=== PATIENT | female | born 1955 | race Caucasian/White ===

== ENCOUNTER → 2017-06-18 | Outpatient (CLI) | payer MEDICARE ==
[~2017-06-18] MED LIST: ACYC800T PO; AGM875T PO; ASP81CT; AZIT-21 PO; BISO1TAB39 PO; CEFD300C3 PO; GUAI120L29 PO; HYDR-757 PO; LRT10T; LVT.15T; METF-380 PO; OLME20TA5; OXYC5CAP18 PO; OXYM30SP NS; PARO20TA57 PO
--- NOTE | 2017-06-18 12:53 | Diagnostic Imaging Report ---
PROCEDURE: MRI left joint lower extremity without contrast. TECHNIQUE: Multiplanar, multisequence non contrast-enhanced MRI of the left lower extremity was accomplished. INDICATION: Knee pain. COMPARISON: There are no prior studies available for comparison. FINDINGS: This exam is less than optimal due to the patient's body habitus. There is also motion artifact on several sequences. The medial meniscus has been torn and has nearly completely degenerated. 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 Specifically, there is marked narrowing of the articular surfaces of both the medial femoral condyle and the medial proximal tibia. The coronal STIR images also show areas of increased signal within the opposing surfaces of the medial femoral condyle and medial proximal tibia. Most likely, this represents bone edema from repetitive trauma. The medial collateral ligament is bowed medially and the MCL is somewhat indistinct. I suspect that the medial collateral ligament is partially torn. The lateral meniscus is thinned in its midportion and is probably torn on a degenerative basis. The lateral meniscus is otherwise fairly well maintained. On the proton-dense sagittal images, the anterior cruciate ligament is not well visualized. I suspect that the ACL is partially torn. The posterior cruciate ligament, the quadriceps and infrapatellar tendons, the fibular collateral ligament, the biceps femoris tendon, and iliotibial band are intact. There is no sign of a tear of either medial or lateral retinaculum. There is no abnormal signal arising from the osseous structures to suggest bone edema or fracture. There is moderate degenerative disease involving the lateral compartment of the knee joint and the patellofemoral space. There is also moderate joint effusion present. IMPRESSION: 1. The medial meniscus has been torn and has nearly completely degenerated. 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 The medial collateral ligament is also bowed medially and the MCL may be partially torn. 2. The poor visualization of the anterior cruciate ligament does suggest that the ACL is at least partially if not completely torn. 3. The lateral meniscus and the other major ligaments and tendons are intact. 4. There is no acute bony abnormality identified. 5. There is a moderate joint effusion present. Dictated by: Dictated on workstation # [id number]
--- NOTE | 2017-06-18 13:09 | Diagnostic Imaging Report ---
PROCEDURE: MRI right joint lower extremity without contrast. TECHNIQUE: Multiplanar, multisequence non contrast-enhanced MRI of the right lower extremity was accomplished. INDICATION: Knee pain. COMPARISON: There are no previous studies available for comparison. FINDINGS: This exam is less than optimal due to the patient's body habitus. There is also motion artifact on several sequences. The mid portion and the anterior horn of the medial meniscus have been torn and have degenerated. The injury to the medial meniscus has led to advanced degenerative disease involving the medial compartment of the knee joint. However, the degenerative changes are not as severe as noted on the MRI left knee exam. On the STIR coronal series, there is increased signal in the medial femoral condyle and the medial proximal tibia. Most likely, this is related to bone edema from repetitive trauma. There also appear to be degenerative cysts in each subcarinal region. The medial collateral ligament is bowed medially, and there is edema/inflammation about the MCL. I do suspect it is partially torn. The lateral meniscus is thinned centrally but appears to be intact. The anterior and posterior cruciate ligaments, the quadriceps and infrapatellar tendons are intact. The fibular collateral ligament, the biceps femoris tendon, and the iliotibial band are intact. No evidence of a tear of either the medial or lateral retinaculum. There is moderate degenerative disease of the lateral compartment of the knee joint and the patellofemoral space. There is no sign of an acute bony abnormality. There is a rjqfj-we-xiwojsxu joint effusion present. There is no evidence for a Damian's cyst. IMPRESSION: 1. The anterior horn and mid portion of the medial meniscus have been torn and have degenerated. The injury to the medial meniscus has led to severe degenerative disease involving the medial compartment of the knee joint. The degenerative changes are not as pronounced as seen on the MRI left knee exam, however. 2. The medial collateral ligament is bowed medially and is probably partially torn. 3. The lateral meniscus and the other major ligaments and tendons are intact. 4. There is no sign of an acute bony abnormality. 5. There is a [id number]-[id number] joint effusion. Dictated by: Dictated on workstation # [id number]
== END ==
LOC: RAD 10:17
PROVIDERS: ATTEND Family Medicine
DX: S83.242A Other tear of medial meniscus, current injury, left knee, initial encounter (principal); S83.241A Other tear of medial meniscus, current injury, right knee, initial encounter; M17.0 Bilateral primary osteoarthritis of knee
CPT/HCPCS: 73721

== ENCOUNTER 2017-12-29 23:56 | Emergency (ER) | payer MEDICARE ==
[~2017-12-29 23:56] MED LIST changes: +HYDR-4226 PO
== END 2017-12-30 00:21 | disposition left against medical advice (07) ==
LOC: EDUNIT# 23:56 → ER 23:57
DX: K46.9 Unspecified abdominal hernia without obstruction or gangrene (principal)

== ENCOUNTER → 2018-05-29 | Outpatient (CLI) | payer MEDICARE | LOC: WOUNDCARE 09:26 | PROVIDERS: ATTEND Surgery | DX: T81.31XA Disruption of external operation (surgical) wound, not elsewhere classified, initial encounter (principal); E11.622 Type 2 diabetes mellitus with other skin ulcer; L98.493 Non-pressure chronic ulcer of skin of other sites with necrosis of muscle; T85.79XS Infection and inflammatory reaction due to other internal prosthetic devices, implants and grafts, sequela; B95.61 Methicillin susceptible Staphylococcus aureus infection as the cause of diseases classified elsewhere; E66.01 Morbid (severe) obesity due to excess calories | CPT/HCPCS: 11042; 87070; 87077; 87186; 87205 ==

== ENCOUNTER → 2018-06-05 | Outpatient (CLI) | payer MEDICARE | LOC: WOUNDCARE 08:07 | PROVIDERS: ATTEND Surgery | DX: T81.31XA Disruption of external operation (surgical) wound, not elsewhere classified, initial encounter (principal); E11.622 Type 2 diabetes mellitus with other skin ulcer; L98.493 Non-pressure chronic ulcer of skin of other sites with necrosis of muscle; T85.79XS Infection and inflammatory reaction due to other internal prosthetic devices, implants and grafts, sequela; B95.62 Methicillin resistant Staphylococcus aureus infection as the cause of diseases classified elsewhere; E66.01 Morbid (severe) obesity due to excess calories; Z68.42 Body mass index [BMI] 45.0-49.9, adult | CPT/HCPCS: 99212 ==

== ENCOUNTER → 2018-06-12 | Outpatient (CLI) | payer MEDICARE | LOC: WOUNDCARE 08:07 | PROVIDERS: ATTEND Surgery | DX: T81.31XA Disruption of external operation (surgical) wound, not elsewhere classified, initial encounter (principal); E11.622 Type 2 diabetes mellitus with other skin ulcer; L98.493 Non-pressure chronic ulcer of skin of other sites with necrosis of muscle; T85.79XS Infection and inflammatory reaction due to other internal prosthetic devices, implants and grafts, sequela; B95.62 Methicillin resistant Staphylococcus aureus infection as the cause of diseases classified elsewhere; E66.01 Morbid (severe) obesity due to excess calories | CPT/HCPCS: 99213 ==

== ENCOUNTER → 2018-06-19 | Outpatient (CLI) | payer MEDICARE | LOC: WOUNDCARE 08:10 | PROVIDERS: ATTEND Surgery | DX: T81.31XA Disruption of external operation (surgical) wound, not elsewhere classified, initial encounter (principal); E11.622 Type 2 diabetes mellitus with other skin ulcer; L98.493 Non-pressure chronic ulcer of skin of other sites with necrosis of muscle; T85.79XS Infection and inflammatory reaction due to other internal prosthetic devices, implants and grafts, sequela; B95.62 Methicillin resistant Staphylococcus aureus infection as the cause of diseases classified elsewhere; E66.01 Morbid (severe) obesity due to excess calories; Z68.42 Body mass index [BMI] 45.0-49.9, adult | CPT/HCPCS: 11042; 11045; 87070; 87205 ==

== ENCOUNTER → 2018-06-26 | Outpatient (CLI) | payer MEDICARE | LOC: WOUNDCARE 08:10 | PROVIDERS: ATTEND Surgery | DX: T81.31XA Disruption of external operation (surgical) wound, not elsewhere classified, initial encounter (principal); E11.622 Type 2 diabetes mellitus with other skin ulcer; L98.493 Non-pressure chronic ulcer of skin of other sites with necrosis of muscle; T85.79XS Infection and inflammatory reaction due to other internal prosthetic devices, implants and grafts, sequela; B95.62 Methicillin resistant Staphylococcus aureus infection as the cause of diseases classified elsewhere; E66.01 Morbid (severe) obesity due to excess calories; Z68.42 Body mass index [BMI] 45.0-49.9, adult | CPT/HCPCS: 99213 ==

== ENCOUNTER 2018-07-01 12:54 | Emergency (ER) | payer MEDICARE ==
[~2018-07-01] VITALS: Ht 160 cm; Wt 103.9 kg
[~2018-07-01 12:54] MED LIST changes: -OXC5T PO; +OXYC5CAP18 PO
[2018-07-01] MEDS ORDERED: NS IV 1000 ML 1,000 ML IV SCH (13:30)
--- NOTE | 2018-07-01 13:34 | ED Abdominal Pain ---
General Chief Complaint: Abdominal/GI Problems Stated Complaint: DEHYDRATED STOMACH DRAINAGE Nursing Triage Note: ARRIVED VIA WC TO ROOM 07. 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 SEES DR CELIS FOR THIS PROBLEM. Sepsis Screen: No Definite Risk Source of Information: Patient Exam Limitations: No Limitations History of Present Illness Date Seen by Provider: Jul 01, 2018 Time Seen by Provider: 13:21 Initial Comments 62-year-old female who presents to the emergency room with complaints of increasing drainage from a fistula at the site of umbilical hernia repair stemming from December of last year. She is a patient of Dr. Costa and [facility] and she is currently waiting 6 months to see if the fistula will close on its own before having another operation but reports an increase in the drainage from her wound and macerated skin to her abdominal wall from the drainage over the past week. She reports that she no longer able to keep the drainage bag in place due to the maceration to her skin and whatever she eats or drinks is coming out of the opening. Timing/Duration: 1 Week Location: Generalized Abdomen (abdominal wall) Associated Symptoms: Denies Symptoms Allergies and Home Medications Allergies Coded Allergies: No Known Drug Allergies (Unverified , 07/18/07) Home Medications Acyclovir 800 Mg Tablet, 800 MG PO QID Prescribed by: GILL CESPEDES on 12/12/141905 Amoxicillin/Clavulanate K 875 Mg Tab, 1 TAB PO BID Prescribed by: GILL CESPEDES on 08/07/14 151 Bisoprol/Hydrochlorothiazide 1 Tab Tablet, 1 TAB PO DAILY, (Reported) Cefdinir 300 Mg Capsule, 1 EACH PO BID Prescribed by: GILL CESPEDES on 04/20/14 1851 Guaifenesin/Codeine Phos 120 Ml Liquid, 5-10 ML PO Q6H Prescribed by: GILL CESPEDES on 04/20/14 1611 Hydrocodone Bit/Acetaminophen 1 Each Tablet, 1 EA PO Q6H PRN for MILD PAIN Prescribed by: GILL CESPEDES on 08/07/14 1514 Hydrocodone/Acetaminophen 1 Each Tablet, 1 EACH PO Q4H PRN for PAIN Prescribed by: GILL CESPEDES on 12/12/14 1906 Metformin Hcl 1,000 Mg Tablet, 1 EACH PO BID WITH MEALS, (Reported) Oxycodone HCl 5 Mg Capsule, 5 MG PO Q6H PRN for PAIN Prescribed by: GILL CESPEDES on 12/12/14 1908 Oxymetazoline Hcl 15 Ml [place], 2-3 SPRAY NS PER PACKAGE INSTR Prescribed by: GILL CESPEDES on 04/20/14 1611 Paroxetine Hcl 20 Mg Tablet, 20 MG PO DAILY, (Reported) Patient Home Medication List Home Medication List Reviewed: Yes Review of Systems Review of Systems Constitutional: see HPI; No chills, No fever Gastrointestinal: See HPI, Abdominal Pain, Other (increased drainage from abdominal wound reddened surrounding skin) Skin: see HPI All Other Systems Reviewed Negative Unless Noted: Yes Past Sebtvpr-Cflkql-Jbvtfe Hx Past Med/Social Hx: Reviewed Nursing Past Med/Soc Hx Patient Social History Recent Foreign Travel: No Contact w/Someone Who Travel: No Recent Infectious Disease Expo: No Recent Hopitalizations: Yes Immunizations Up To Date Tetanus Booster (TDap): Unknown Past Medical History Surgeries: Yes (TUBAL, 1 OPEN EXPLORATORY, 4 HERNIA REPAIRS ) Respiratory: No Cardiac: No Hypertension Neurological: No Reproductive Disorders: No Genitourinary: No Gastrointestinal: Yes (FISTULA, HERNIA WITH MESH) Hepatitis Musculoskeletal: Yes Endocrine: Yes Hypothyroidsim HEENT: No Cancer: No Psychosocial: No Integumentary: No Blood Disorders: No Family Medical History Reviewed Nursing Family Hx Physical Exam Vital Signs Vital Signs - First Documented 07/01/18 13:00 Temp 98.0 Pulse 115 Resp 18 B/P (MAP) 103/51 (68) Pulse Ox 98 O2 Delivery Room Air Capillary Refill : Less Than 3 Seconds Height/Weight/BMI Height: 5'3.00" Weight: 229lbs. oz. 103.735897hf; BMI Method:Stated General Appearance: WD/WN, no apparent distress Respiratory: chest non-tender, lungs clear, normal breath sounds, no respiratory distress, no accessory muscle use Cardiovascular: normal peripheral pulses, regular rate, rhythm, no edema, no gallop, no JVD, no murmur Gastrointestinal: normal bowel sounds, non tender, soft, no organomegaly, no pulsatile mass, other (macerated skin to the surrounding tissue of the wound. The wound is draining a yellow color bile and there is a area of the few red tissue and the scar where her wound VAC previously was.) Extremities: normal capillary refill Neurologic/Psychiatric: alert, normal mood/affect, oriented x 3 Skin: normal color, warm/dry Focused Exam Lactate Level 07/01/18 14:05: Lactic Acid Level 2.58*H 07/01/18 16:15: Lactic Acid Level 1.87 Lactic Acid Level Laboratory Tests Test 07/01/18 14:05 07/01/18 16:15 Lactic Acid Level 2.58 MMOL/L (0.50-2.00) *H 1.87 MMOL/L (0.50-2.00) Progress/Results/Core Measures Results/Orders Lab Results Laboratory Tests Test 07/01/18 13:30 07/01/18 14:05 07/01/18 16:15 Range/Units White Blood Count 9.5 4.3-11.0 10^3/uL Red Blood Count 4.90 4.35-5.85 10^6/uL Hemoglobin 14.6 11.5-16.0 G/DL Hematocrit 45 35-52 % Mean Corpuscular Volume 93 80-99 FL Mean Corpuscular Hemoglobin 30 25-34 PG Mean Corpuscular Hemoglobin Concent 32 32-36 G/DL Red Cell Distribution Width 13.3 10.0-14.5 % Platelet Count 593 H 130-400 10^3/uL Mean Platelet Volume 9.5 7.4-10.4 FL Neutrophils (%) (Auto) 56 42-75 % Lymphocytes (%) (Auto) 25 12-44 % Monocytes (%) (Auto) 13 H 0-12 % Eosinophils (%) (Auto) 6 0-10 % Basophils (%) (Auto) 0 0-10 % Neutrophils # (Auto) 5.3 1.8-7.8 X 10^3 Lymphocytes # (Auto) 2.4 1.0-4.0 X 10^3 Monocytes # (Auto) 1.2 H 0.0-1.0 X 10^3 Eosinophils # (Auto) 0.6 H 0.0-0.3 10^3/uL Basophils # (Auto) 0.0 0.0-0.1 10^3/uL Prothrombin Time 14.1 12.2-14.7 SEC INR Comment 1.0 0.8-1.4 Activated Partial Thromboplast Time 30 24-35 SEC Sodium Level 136 135-145 MMOL/L Potassium Level 4.9 3.6-5.0 MMOL/L Chloride Level 103 98-107 MMOL/L Carbon Dioxide Level 18 L 21-32 MMOL/L Anion Gap 15 H 5-14 MMOL/L Blood Urea Nitrogen 18 7-18 MG/DL Creatinine 1.00 0.60-1.30 MG/DL Estimat Glomerular Filtration Rate 56 BUN/Creatinine Ratio 18 Glucose Level 136 H 70-105 MG/DL Calcium Level 10.6 H 8.5-10.1 MG/DL Corrected Calcium 10.6 H 8.5-10.1 MG/DL Total Bilirubin 0.7 0.1-1.0 MG/DL Aspartate Amino Transf (AST/SGOT) 41 H 5-34 U/L Alanine Aminotransferase (ALT/SGPT) 24 0-55 U/L Alkaline Phosphatase 64 40-136 U/L Total Protein 8.8 H 6.4-8.2 GM/DL Albumin 4.0 3.2-4.5 GM/DL Lactic Acid Level 2.58 *H 1.87 0.50-2.00 MMOL/L My Orders Orders - BALTAZAR CASTRO Cbc With Automated Diff (07/01/18 13:20) Comprehensive Metabolic Panel (07/01/18 13:20) Blood Culture (07/01/18 13:20) Protime With Inr (07/01/18 13:20) Partial Thromboplastin Time (07/01/18 13:20) Saline Lock/Iv-Start (07/01/18 13:20) Vital Signs Adult Sepsis Patie Q15M (07/01/18 13:20) O2 (07/01/18 13:20) Remove Rings In Anticipation O (07/01/18 13:20) Wound Culture (07/01/18 13:20) Lactic Acid Analyzer (07/01/18 13:20) Ns Iv 1000 Ml (Sodium Chloride 0.9%) (07/01/18 13:30) Vital Signs/I&O 07/01/18 07/01/18 13:00 15:25 Temp 98.0 Pulse 115 76 Resp 18 16 B/P (MAP) 103/51 (68) 116/54 (74) Pulse Ox 98 99 O2 Delivery Room Air Room Air Blood Pressure Mean: 68 Progress Progress Note : Time: 13:35 Progress Note I have discussed the case with Dr. Costa and he recommends sending the patient over for wound care after lab results are back. 1441: Lab reported critical lactic acid. The patient will be given a liter of normal saline prior to going to wound care and we will repeat her lactic acid when she is there. Dr. Costa was notified of these plans. The patient agrees with plan of care, plans for discharge, return precautions were given. 1615: Repeat lactic acid was within normal range. Departure Impression Primary Impression: Fistula of small intestine Additional Impression: Maceration of skin Disposition: HOME, SELF-CARE Condition: Stable/Unchanged Departure-Patient Inst. Decision time for Depature: 13:47 Referrals: ERIC SCOTT MD (PCP/Family) Primary Care Physician SAMIA COSTA MD Patient Instructions: Enterocutaneous Fistula (DC) Add. Discharge Instructions: Go directly to Dr. Costa's office to be seen for wound care. Call [facility] tomorrow morning to see you can get your appointment sooner than your scheduled on July 10, 2018. If not be sure and make your appointment on July 10. Return back to the emergency room for worsening symptoms or concerns as needed. All discharge instructions reviewed with patient and/or family. Voiced understanding. BALTAZAR CASTRO Jul 01, 2018 13:34
[2018-07-01 14:07] LABS: BILIRUBIN,TOTAL 0.7 MG/DL (0.1-1.0); CALCIUM 10.6 MG/DL (8.5-10.1); POTASSIUM 4.9 MMOL/L (3.6-5.0); TOTAL PROTEIN 8.8 GM/DL (6.4-8.2)
[2018-07-01 14:09] LABS: PROTHROMBIN TIME PATIENT 14.1 SEC (12.2-14.7)
[2018-07-01 14:23] LABS: BASOPHILS % (AUTO) 0 % (0-10); EOSINOPHILS # (AUTO) 0.6 10^3/uL (0.0-0.3); EOSINOPHILS % (AUTO) 6 % (0-10); HEMATOCRIT 45 % (35-52); HEMOGLOBIN 14.6 G/DL (11.5-16.0); LYMPHOCYTES # (AUTO) 2.4 X 10^3 (1.0-4.0); LYMPHOCYTES % (AUTO) 25 % (12-44); MEAN CORPUSCULAR HEMOGLOBIN 30 PG (25-34); MEAN CORPUSCULAR HGB CONC 32 G/DL (32-36); MEAN CORPUSCULAR VOLUME 93 FL (80-99); MEAN PLATELET VOLUME 9.5 FL (7.4-10.4); MONOCYTES # (AUTO) 1.2 X 10^3 (0.0-1.0); MONOCYTES % (AUTO) 13 % (0-12); NEUTROPHILS # (AUTO) 5.3 X 10^3 (1.8-7.8); NEUTROPHILS % (AUTO) 56 % (42-75); PLATELET COUNT 593 10^3/uL (130-400); RED CELL DISTRIBUTION WIDTH 13.3 % (10.0-14.5); WHITE BLOOD COUNT 9.5 10^3/uL (4.3-11.0)
[2018-07-01 15:25] VITALS: BP 116/54
== END 2018-07-01 15:25 | disposition home or self-care (01) ==
LOC: EDUNIT# 12:54 → ER 12:57
DX: K63.2 Fistula of intestine (principal); R23.8 Other skin changes; I10 Essential (primary) hypertension; E03.9 Hypothyroidism, unspecified; Z87.19 Personal history of other diseases of the digestive system; Z79.84 Long term (current) use of oral hypoglycemic drugs; Z98.890 Other specified postprocedural states
CPT/HCPCS: 36415; 80053; 83605; 85025; 85610; 85730; 87040; 87070; 87077; 87205

== ENCOUNTER 2018-07-01 17:07 | Emergency (ER) | payer MEDICARE ==
[~2018-07-01] VITALS: Ht 160 cm; Wt 103.9 kg
--- NOTE | 2018-07-01 17:13 | NUR ---
BALTAZAR STATES DR STEWART IS COMING TO SEE PT.
--- OUTSIDE RECORDS SUMMARY | 2018-07-01 17:13 | XMS REPORT | Clinical Summary ---
Author Author [facility] Organization [facility] Address Unknown Phone Unavailable Care Team Providers Care Wool Fleece Sorter Name Role Phone Mamie Schuster MD PCP Source Comments Some departments are not documenting in the electronic medical record. If you do not see the information that you expected, contact Release of Information in the Health Information Management department at [phone] for further assistance in locating additional records.[facility] Allergies No Known Allergies Medications End Date Status Medication Sig Dispensed Refills Start Date Active levothyroxine (SYNTHROID) Take 200 mcg 0 200 mcg tablet by mouth daily 30 minutes before breakfast. Active atorvastatin (LIPITOR) 40 Take 40 mg by 0 mg tablet mouth daily. Active metFORMIN (GLUCOPHAGE) Take 1,000 mg 0 1,000 mg tablet by mouth twice daily with meals. Active sodium hypochlorite Apply 473 mL 2 (DAKIN'S 1/2 STRENGTH) topically to 9 0.25 % topical solution affected area twice daily. Active Problems Problem Noted Date Hypothyroidism 05/09/2018 Morbid obesity 05/09/2018 Hypertension 05/09/2018 Syncope 05/09/2018 Chronic abdominal wound infection 05/09/2018 Encounters Care Team Description Date Type Specialty Niles Barney MD 06/26/2018 Emergency Emergency Medicine Helen Lan MD BMI 40.0-44.9, adult (HCC) (Primary Dx); Infected hernioplasty mesh, initial encounter ([facility]) 05/21/2018 Office Visit General Surgery Rachel Garcia MD Wilson, Matthew D, MD Capra, Jennifer, DO Chronic abdominal wound infection 05/08/2018 Hospital - Encounter 05/10/2018 05/08/2018 Hospital Radiology Encounter 05/08/2018 Hospital Radiology Encounter from Last 3 Months Family History Medical History Relation Name Comments Heart Attack Mother Relation Name Status Comments Mother Social History Date Tobacco Use Types Packs/Day Years Used Never Smoker Smokeless Tobacco: Never Used Alcohol Use Drinks/Week oz/Week Comments No Alcohol Habits Answer Date Recorded How often do you have a drink containing alcohol? Never 05/09/2018 How many drinks containing alcohol do you have on Not asked a typical day when you are drinking? How often do you have six or more drinks on one Not asked occasion? Sex Assigned at Date Recorded Not on file Industry Job Start Date Occupation Not on file Not on file Not on file Travel End Travel History Travel Start No recent travel history available. Last Filed Vital Signs Time Taken Vital Sign Reading 06/26/2018 9:00 PM CDT Blood Pressure 117/72 05/21/2018 9:38 AM PRINT DECORATOR Pulse 122 06/26/2018 12:22 PM CDT Temperature 36.5 C (97.7 F) 05/21/2018 9:38 AM PRINT DECORATOR Respiratory Rate 18 06/26/2018 9:00 PM CDT Oxygen Saturation 97% - Inhaled Oxygen - Concentration 06/26/2018 12:22 PM CDT Weight 108 kg (238 lb) 06/26/2018 12:22 PM CDT Height 160 cm (5' 3") 06/26/2018 12:22 PM CDT Body Mass Index 42.16 Plan of Treatment Health Maintenance Due Date Last Done Comments HEPATITIS C SCREENING 1955 PHYSICAL (COMPREHENSIVE) 08/22/1962 EXAM HIV SCREENING 08/22/1970 DTAP/TDAP VACCINES (1 - 08/22/1973 Tdap) CERVICAL CANCER SCREENING 08/22/1985 BREAST CANCER SCREENING 1995 COLORECTAL CANCER 08/22/2005 SCREENING SHINGLES RECOMBINANT 08/22/2005 VACCINE (1 of 2) INFLUENZA VACCINE 11/07/2017 Procedures Comments Procedure Name Priority Date/Time Associated Diagnosis CT ABD/PELV W CONTRAST STAT 06/26/2018 4:48 PM CDT POC LACTATE 06/26/2018 2:13 PM CDT COMPREHENSIVE METABOLIC STAT 06/26/2018 PANEL 12:37 PM CDT CBC AND DIFF STAT 06/26/2018 12:37 PM CDT POC GLUCOSE 05/10/2018 8:31 AM PRINT DECORATOR COMPREHENSIVE METABOLIC Routine 05/10/2018 PANEL 6:39 AM PRINT DECORATOR CBC AND DIFF Routine 05/10/2018 6:39 AM PRINT DECORATOR POC GLUCOSE 05/10/2018 5:38 AM PRINT DECORATOR POC GLUCOSE 05/09/2018 10:53 PM PRINT DECORATOR POC GLUCOSE 05/09/2018 6:23 PM PRINT DECORATOR POC GLUCOSE 05/09/2018 3:40 PM PRINT DECORATOR POC GLUCOSE 05/09/2018 12:07 PM PRINT DECORATOR 2-D + DOPPLER Routine 05/09/2018 ECHOCARDIOGRAM 11:39 AM PRINT DECORATOR POC GLUCOSE 05/09/2018 8:09 AM PRINT DECORATOR UA REFLEX CULTURE LABEL Routine 05/09/2018 8:02 AM PRINT DECORATOR URINALYSIS MICROSCOPIC Routine 05/09/2018 REFLEX TO CULTURE 8:02 AM PRINT DECORATOR URINALYSIS DIPSTICK Routine 05/09/2018 REFLEX TO CULTURE 8:[address] ABD/PELV W CONTRAST MP 05/09/2018 5:56 AM PRINT DECORATOR CULTURE-BLOOD Routine 05/09/2018 W/SENSITIVITY 1:17 AM PRINT DECORATOR VANCOMYCIN TROUGH 05/09/2018 1:10 AM PRINT DECORATOR BNP (B-TYPE NATRIURETIC Routine 05/09/2018 PEPTI) 1:10 AM PRINT DECORATOR C REACTIVE PROTEIN (CRP) Routine 05/09/2018 1:10 AM PRINT DECORATOR MAGNESIUM Routine 05/09/2018 1:10 AM PRINT DECORATOR TSH WITH FREE T4 REFLEX Routine 05/09/2018 1:10 AM PRINT DECORATOR COMPREHENSIVE METABOLIC Routine 05/09/2018 PANEL 1:10 AM PRINT DECORATOR PTT (APTT) Routine 05/09/2018 1:10 AM PRINT DECORATOR PROTIME INR (PT) Routine 05/09/2018 1:10 AM PRINT DECORATOR CBC AND DIFF Routine 05/09/2018 1:10 AM PRINT DECORATOR CULTURE-BLOOD Routine 05/09/2018 W/SENSITIVITY 1:10 AM PRINT DECORATOR ECG 12-LEAD Routine 05/09/2018 12:44 AM PRINT DECORATOR POC GLUCOSE 05/09/2018 12:[address] HEAD EXTERNAL IMAGING Routine 05/08/2018 Diagnosis unknown 3:35 PM PRINT DECORATOR GENERAL RAD CHEST Routine 05/08/2018 Diagnosis unknown EXTERNAL IMAGING 2:35 PM PRINT DECORATOR TELEMETRY STRIPS-SCAN 05/08/2018 12:00 AM PRINT DECORATOR ECG-SCAN 05/08/2018 12:00 AM PRINT DECORATOR from Last 3 Months Results * CT ABD/PELV W CONTRAST (06/26/2018 4:48 PM CDT) Only the most recent of 2 results within the time period is included. Impressions Performed At 1.No small bowel obstruction, intraperitoneal abscess, ascites, or free air. [facility] 2. No significant change in appearance of abdominal wall defect and thin linear gas fluid collection in the deep left anterior abdominal wall since May 09, 2018.There is no evidence at this examination of enterocutaneous fistula. Finalized by Tyler Resendez M.D. on 06/26/2018 5:08 PM. Dictated by Tyler Resendez M.D. on 06/26/2018 4:50 PM. Narrative Performed At CT abdomen and pelvis [facility] RESULTS Indication:62-year-old lady with abdominal wound and drainage Comparison studies:May 09, 2018 Technique: Dynamic IV contrast-enhanced images were obtained through the abdomen and pelvis.. Findings: Heart size normal.Unchanged anterior epiphrenic lymph nodes which are probably reactive nodes.Small fat-containing left Bochdalek hernia again noted.Minimal dependent atelectasis or scarring. 1. 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 2. Adrenal glands and kidneys:Unremarkable. 3. Pancreas and retroperitoneum:Pancreas unremarkable.Unchanged normal size retroperitoneal lymph nodes which are probably reactive nodes. 4. Peritoneal space:Small and large bowel loops normal caliber.Oral contrast was given, and there is transit of relatively high density oral contrast to the distal small bowel and large bowel which implies that contrast has passed through the proximal and mid small bowel loops. There is a persistent anterior abdominal wound with soft tissue defect. There is a persistent thin linear gas fluid collection in the deep left anterior abdominal wall which extends to the midline wound.There is no significant change in the appearance of this thin linear gas fluid collection noted on images 48 through 52 series 2 measuring about 8 cm transverse by 0.8 cm AP.There is no extravasation of high density contrast material into this lesion or into the cutaneous defect.Numerous small bowel loops remain closely adherent to the inner aspect of the anterior abdominal wall.No pneumoperitoneum.No ascites or extravasation of contrast into the peritoneal cavity. 5. Pelvis findings:Partially filled bladder and uterus unremarkable.Ovaries normal size.No pelvic adenopathy. Procedure Note Interface, Radiant Results - 06/26/2018 5:[address] abdomen and pelvis Indication: 62-year-old lady with abdominal wound and drainage Comparison studies: May 09, 2018 Technique: Dynamic IV contrast-enhanced images were obtained through the abdomen and pelvis.. Findings: Heart size normal. Unchanged anterior epiphrenic lymph nodes which are probably reactive nodes. Small fat-containing left Bochdalek hernia again noted. Minimal dependent atelectasis or scarring. 1. Liver and spleen: Liver remains normal size without focal lesion. Surgical clips in gallbladder fossa. 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 2. Adrenal glands and kidneys: Unremarkable. 3. Pancreas and retroperitoneum: Pancreas unremarkable. Unchanged normal size retroperitoneal lymph nodes which are probably reactive nodes. 4. Peritoneal space: Small and large bowel loops normal caliber. Oral contrast was given, and there is transit of relatively high density oral contrast to the distal small bowel and large bowel which implies that contrast has passed through the proximal and mid small bowel loops. There is a persistent anterior abdominal wound with soft tissue defect. There is a persistent thin linear gas fluid collection in the deep left anterior abdominal wall which extends to the midline wound. There is no significant change in the appearance of this thin linear gas fluid collection noted on images 48 through 52 series 2 measuring about 8 cm transverse by 0.8 cm AP. There is no extravasation of high density contrast material into this lesion or into the cutaneous defect. Numerous small bowel loops remain closely adherent to the inner aspect of the anterior abdominal wall. No pneumoperitoneum. No ascites or extravasation of contrast into the peritoneal cavity. 5. Pelvis findings: Partially filled bladder and uterus unremarkable. Ovaries normal size. No pelvic adenopathy. IMPRESSION 1. No small bowel obstruction, intraperitoneal abscess, ascites, or free air. 2. No significant change in appearance of abdominal wall defect and thin linear gas fluid collection in the deep left anterior abdominal wall since May 09, 2018. There is no evidence at this examination of enterocutaneous fistula. Finalized by Tyler Resendez M.D. on 06/26/2018 5:08 PM. Dictated by Tyler Resendez M.D. on 06/26/2018 4:50 PM. Performing Organization Address City/[facility] Phone Number [facility] RESULTS * POC LACTATE (06/26/2018 2:13 PM CDT) Pathologist [facility] LACTIC ACID POC 1.2 0.5 - 2.0 MMOL/L [facility] Performing Organization Address City/[facility] Phone Number [facility] [address] [place] [address] * CBC AND DIFF (06/26/2018 12:37 PM CDT) Only the most recent of 3 results within the time period is included. Pathologist [facility] White Blood 8.5 4.5 - 11.0 K/UL [facility] Cells RBC 4.06 4.0 - 5.0 M/UL [facility] Hemoglobin 12.6 12.0 - 15.0 GM/DL [facility] Hematocrit 38.5 36 - 45 % [facility] MCV 94.9 80 - 100 FL [facility] MCH 31.0 26 - 34 PG [facility] MCHC 32.6 32.0 - 36.0 G/DL [facility] RDW 14.4 11 - 15 % [facility] Platelet Count 556 (H) 150 - 400 K/UL [facility] MPV 8.3 7 - 11 FL [facility] Neutrophils 49 41 - 77 % [facility] Lymphocytes 31 24 - 44 % [facility] Monocytes 12 4 - 12 % [facility] Eosinophils 7 (H) 0 - 5 % [facility] Basophils 1 0 - 2 % [facility] Absolute 4.30 1.8 - 7.0 K/UL [facility] Neutrophil Count Absolute Lymph 2.60 1.0 - 4.8 K/UL [facility] Count Absolute 1.00 (H) 0 - 0.80 K/UL [facility] Monocyte Count Absolute 0.60 (H) 0 - 0.45 K/UL [facility] Eosinophil Count Absolute 0.10 0 - 0.20 K/UL [facility] Basophil Count Specimen Blood Performing Organization Address City/State/Zipcode Phone Number [facility] [address] [place] [address] * COMPREHENSIVE METABOLIC PANEL (06/26/2018 12:37 PM CDT) Only the most recent of 3 results within the time period is included. Sodium 138 137 - 147 MMOL/L [facility] Potassium 4.0 3.5 - 5.1 MMOL/L [facility] Chloride 104 98 - 110 MMOL/L [facility] Glucose 104 (H) 70 - 100 MG/DL [facility] Blood Urea 13 7 - 25 MG/DL [facility] Nitrogen Creatinine 0.74 0.4 - 1.00 MG/DL [facility] Calcium 10.1 8.5 - 10.6 MG/DL [facility] Total Protein 8.1 (H) 6.0 - 8.0 G/DL [facility] Total Bilirubin 0.7 0.3 - 1.2 MG/DL [facility] Albumin 3.8 3.5 - 5.0 G/DL [facility] Alk Phosphatase 46 25 - 110 U/L [facility] AST (SGOT) 19 7 - 40 U/L [facility] CO2 26 21 - 30 MMOL/L [facility] ALT (SGPT) 13 7 - 56 U/L [facility] Anion Gap 8 3 - 12 [facility] eGFR Non >60 >60 mL/min [facility] Comment: [place] The eGFR is not validated for use in drug dosing adjustments.Continue to use estimated creatinine clearance per dosing reference text.Please contact the Clinical Pharmacist for questions. eGFR >60 >60 mL/min [facility] [place] Comment: The eGFR is not validated for use in drug dosing adjustments.Continue to use estimated creatinine clearance per dosing reference text.Please contact the Clinical Pharmacist for questions. Specimen Blood Performing Organization Address City/State/Zipcode Phone Number [facility] [address] [place] [address] * POC GLUCOSE (05/10/2018 8:31 AM PRINT DECORATOR) Only the most recent of 8 results within the time period is included. Glucose, POC 116 (H) 70 - 100 MG/DL [facility] Performing Organization Address City/[facility]/Zipcode Phone Number [facility] [address] [place] [address] * 2-D + DOPPLER ECHOCARDIOGRAM (05/09/2018 11:39 AM PRINT DECORATOR) IVS 0.93 0.6 - 0.9 cm OTHER OUTSIDE LAB LVIDD 4.48 3.8 - 5.2 cm OTHER OUTSIDE LAB LVIDS 3.57 2.2 - 3.5 cm OTHER OUTSIDE LAB PW 1.07 0.6 - 0.9 cm OTHER OUTSIDE LAB TDI e' 0.11 m/s OTHER OUTSIDE LAB Right 2.63 1.9 - 3.5 cm OTHER OUTSIDE Ventricular Mid LAB Diameter LA size 3.85 2.7 - 3.8 cm OTHER OUTSIDE LAB LA volume 37.51 22 - 52 mL OTHER OUTSIDE LAB Right Atrial 13.22 <18 cm2 OTHER OUTSIDE Area LAB Right Atrial 4.32 2.2 - 2.8 cm OTHER OUTSIDE Major Dimension LAB AV peak 1.20 m/s OTHER OUTSIDE velocity LAB MV Peak A Mohamud 0.79 m/s OTHER OUTSIDE LAB MV Peak E Mohamud 0.67 m/s OTHER OUTSIDE PW LAB Right 3.07 2.5 - 4.1 cm OTHER OUTSIDE Ventricular LAB Basal Diameter Right Heart 1.73 >1.7 cm OTHER OUTSIDE Systolic Mmode LAB TAPSE Sinus 3.21 2.7 - 3.3 cm OTHER OUTSIDE LAB BSA 2.3 m2 OTHER OUTSIDE LAB FS 20.31 28 - 44 % OTHER OUTSIDE LAB EF 34.53 % OTHER OUTSIDE LAB LV mass 152.18 66 - 150 g OTHER OUTSIDE LAB RWT 0.48 <=0.42 OTHER OUTSIDE LAB E/A ratio 0.85 OTHER OUTSIDE LAB E/E' ratio 6.09 OTHER OUTSIDE LAB Left Atrium 16.31 16 - 34 OTHER OUTSIDE Index LAB Left Ventricle 66.16 44 - 88 g/m2 OTHER OUTSIDE Mass Index LAB TV rest 13 mmHg OTHER OUTSIDE pulmonary LAB artery pressure Right Heart 0.107 m/s OTHER OUTSIDE Systolic TDI S' LAB Cardiology Siemens [id number] OTHER OUTSIDE Ultrasound LAB Machine ECHO EF 55 % OTHER OUTSIDE LAB Narrative Performed At OTHER OUTSIDE LAB - Very poor visualization of cardiac structures. - From limited images probably normal Left Ventricular size and function. - LV EF around 55-60% - From limited images probably normal Right Ventricular size and function. - No significant valvular abnormalities noted on limitedvisualization. - No pericardial effusion. - No ECHO for comparison. Performing Organization Address City/[facility]/Zipcode Phone Number OTHER OUTSIDE LAB * UA REFLEX CULTURE LABEL (05/09/2018 8:02 AM PRINT DECORATOR) UA Reflex LAB LABEL [facility] Culture Specimen Urine Performing Organization Address [facility] Phone Number [facility] [address] [place] [address] * URINALYSIS MICROSCOPIC REFLEX TO CULTURE (05/09/2018 8:02 AM PRINT DECORATOR) WBCs,UA 0-2 0 - 2 /HPF [facility] RBCs,UA NONE 0 - 3 /HPF [facility] Comment,UA Urine submitted for reflex [facility] culture if criteria are met:WBC>10, positive nitrite and/or >=1+ leukocyte esterase. If quantity is not sufficient, an addendum will follow. MucousUA TRACE [facility] Specimen Urine Performing Organization Address [facility] Phone Number [facility] [address] [phone] * URINALYSIS DIPSTICK REFLEX TO CULTURE (05/09/2018 8:02 AM PRINT DECORATOR) Color,UA STRAW [facility] Turbidity,UA CLEAR CLEAR-CLEAR [facility] Specific 1.030 1.003 - 1.035 [facility] [place]-Urine pH,UA 5.0 5.0 - 8.0 [facility] Protein,UA NEG NEG-NEG [facility] Glucose,UA NEG NEG-NEG [facility] Ketones,UA NEG NEG-NEG [facility] Bilirubin,UA NEG NEG-NEG [facility] Blood,UA NEG NEG-NEG [facility] Urobilinogen,UA NORMAL NORM-NORMAL [facility] Nitrite,UA NEG NEG-NEG [facility] Leukocytes,UA NEG NEG-NEG [facility] Urine Ascorbic NEG NEG-NEG MAIN LAB Acid, UA Specimen Urine Performing Organization Address [facility] Phone Number [facility] [address] [place] [address] * CULTURE-BLOOD W/SENSITIVITY (05/09/2018 1:17 AM PRINT DECORATOR) Only the most recent of 2 results within the time period is included. Battery Name BLOOD CULTURE [facility] Specimen BLOOD MAIN LAB Description LEFT ANTECUBITAL Special NONE MAIN LAB Requests Culture NO GROWTH 5 DAYS [facility] Report Status FINAL MAIN LAB 05/15/2018 Specimen Blood Performing Organization Address [facility] Phone Number [facility] [address] [place] [address] * TSH WITH FREE T4 REFLEX (05/09/2018 1:10 AM PRINT DECORATOR) TSH 4.860 0.35 - 5.00 MCU/ML [facility] LAB Specimen Blood Performing Organization Address [facility] Phone Number [facility] [address] [place] [address] * PTT (APTT) (05/09/2018 1:10 AM PRINT DECORATOR) APTT 24.3Comment: NOTE NEW 24.0 - 36.5 SEC MAIN LAB REFERENCE RANGES Specimen Blood Performing Organization Address [facility] Phone Number [facility] [address] [place] [address] * PROTIME INR (PT) (05/09/2018 1:10 AM PRINT DECORATOR) INR 1.1 0.8 - 1.2 MAIN LAB Specimen Blood Performing Organization Address [facility] Phone Number [facility] [address] [place] [address] * C REACTIVE PROTEIN (CRP) (05/09/2018 1:10 AM PRINT DECORATOR) C-Reactive 0.34 <1.0 MG/DL [facility] Protein Specimen Blood Performing Organization Address [facility]/Zipcode Phone Number [facility] LAB [address] [place] [address] * BNP (B-TYPE NATRIURETIC PEPTI) (05/09/2018 1:10 AM PRINT DECORATOR) B Type 20.0 0 - 100 PG/ML MAIN LAB Natriuretic Peptide Specimen Blood Performing Organization Address [facility]/Zipcode Phone Number [facility] [address] [place] [address] * MAGNESIUM (05/09/2018 1:10 AM PRINT DECORATOR) Magnesium 1.8 1.6 - 2.6 mg/dL [facility] Specimen Blood Performing Organization Address [facility] Phone Number [facility] [address] [place] [address] * VANCOMYCIN TROUGH (05/09/2018 1:10 AM PRINT DECORATOR) Vancomycin 7.5 (L) 10.0 - 20.0 MCG/ML MAIN LAB Trough Performing Organization Address [facility] Phone Number [facility] [address] [place] [address] * CT HEAD EXTERNAL IMAGING (05/08/2018 3:35 PM PRINT DECORATOR) Narrative Performed At This order has been auto finalized and does not contain a result. * GENERAL RAD CHEST EXTERNAL IMAGING (05/08/2018 2:35 PM PRINT DECORATOR) Narrative Performed At This order has been auto finalized and does not contain a result. * TELEMETRY STRIPS-SCAN (05/08/2018 12:00 AM PRINT DECORATOR) Narrative Performed At Ordered by an unspecified provider. * ECG-SCAN (05/08/2018 12:00 AM PRINT DECORATOR) Narrative Performed At Ordered by an unspecified provider. from Last 3 Months Insurance Type Payer Benefit Subscriber ID Effective Phone Address Plan / Dates Group Medicare HU[employer]NA MEDICARE HUMANA xxxxxxxxx [id number] CHOICE PPO resent Advance Directives Patient has advance care planning documents, and code status on file. For more information, please contact: [facility] [address] [place] [address] Date Inactivated Comments Code Status Date Activated 05/10/2018 2:56 PM Full Code 05/09/2018 12:43 AM Provider has discussed Code Status Yes w/Patient or Family?
--- OUTSIDE RECORDS SUMMARY | 2018-07-01 17:13 | XMS REPORT | Encounter Summary ---
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 Treatment Not on filedocumented as of this encounter Procedures Comments Procedure Name Priority Date/Time Associated Diagnosis CT ABD/PELV W CONTRAST STAT 06/26/2018 4:48 PM CDT POC LACTATE 06/26/2018 2:13 PM CDT CBC AND DIFF STAT 06/26/2018 12:37 PM CDT COMPREHENSIVE METABOLIC STAT 06/26/2018 PANEL 12:37 PM CDT documented in this encounter Results * CT ABD/PELV W CONTRAST (06/26/2018 4:48 PM CDT) Impressions Performed At 1.No small bowel obstruction, [...] on 06/26/2018 4:50 PM. Performing Organization Address [facility] Phone Number RAD RESULTS * POC LACTATE (06/26/2018 2:13 PM CDT) [facility] LACTIC ACID POC 1.2 0.5 - 2.0 MMOL/L MAIN LAB Performing Organization Address [facility] Phone Number MAIN LAB [address] [place] [address] * COMPREHENSIVE METABOLIC PANEL (06/26/2018 12:37 PM CDT) [facility] Sodium 138 137 - 147 MMOL/L [facility] [...] >60 >60 mL/min [facility] MAIN LAB Comment: [place]ese The eGFR is not validated for use in drug dosing adjustments.Continue to use estimated creatinine clearance per dosing reference text.Please contact the Clinical Pharmacist for questions. eGFR >60 >60 mL/min [facility] MAIN LAB [place]ese Comment: The eGFR is not validated for use in drug dosing adjustments.Continue to use estimated creatinine clearance per dosing reference text.Please contact the Clinical Pharmacist for questions. Specimen Blood Performing Organization Address [facility] Phone Number MAIN LAB [address] [place] [address] * CBC AND DIFF (06/26/2018 12:37 PM CDT) [facility] White Blood 8.5 4.5 - 11.0 K/UL [...] Blood Performing Organization Address City/State/Zipcode Phone Number [facility] [address] [place] [address] documented in this encounter Visit Diagnoses Diagnosis Wound drainage - Primary Open wound(s) (multiple) of unspecified site(s), without mention of complication documented in this encounter Administered Medications Action Date Dose Rate Site Medication Order MAR Action 06/26/2018 2:40 PM CDT 30 mL diatrizoate meglumine & sodium 66-10 % Given (STARRGASTROFAYE) oral solution 30 mL 30 mL, Oral, ONCE, 1 dose, 06/26/18 at 1645 06/26/2018 4:45 PM CDT 100 mL iohexol (OMNIPAQUE-350) 350 mg/mL Given injection 100 mL 100 mL, Intravenous, ONCE, 1 dose, 06/26/18 at 1645, NOTE: This is a HIGH ALERT Medication., 06/26/2018 4:45 PM CDT 50 mL sodium chloride PF 0.9% injection 50 mL Given 50 mL, Intravenous, ONCE, 1 dose, 06/26/18 at 1645, DO NOT SEND this medication unless it is requested. This med is usually available in floor stock., Intra-procedure (IR) documented in this encounter
--- OUTSIDE RECORDS SUMMARY | 2018-07-01 17:13 | XMS REPORT | Encounter Summary ---
Author Author [facility] Organization [facility] Address Unknown Phone Unavailable Care Team Providers Care [facility] Worker Name Role Phone No Pcp, Na PCP Unavailable Reason for Visit * Reason Comments Post Operative Visit Encounter Details Care Team Description Date Type Department Helen Lan MD [address] [place] [address] BMI 40.0-44.9, adult (HCC) (Primary Dx); Infected hernioplasty mesh, initial encounter ([facility]) 05/21/2018 Office Visit [facility] [address] [place] [address] Social History Date Tobacco Use Types Packs/Day [...] Vital Signs Time Taken Vital Sign Reading 05/21/2018 9:38 AM 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 Blood Pressure 118/77 05/21/2018 9:38 AM 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 Pulse 122 05/21/2018 9:38 AM 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 Temperature 36.6 C (97.8 F) 05/21/2018 9:38 AM 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 Respiratory Rate 18 - Oxygen Saturation - - Inhaled Oxygen - Concentration 05/21/2018 9:38 AM 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 Weight 113.4 kg (250 lb) 05/21/2018 9:38 AM 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 Height 160 cm (5' 2.99") 05/21/2018 9:38 AM 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 Body Mass Index 44.3 documented in this encounter Functional Status Date of Assessment Functional Status Response 05/21/2018 Does the patient have a hearing impairment: [...] impairment: No documented as of this encounter Progress Notes * Helen Lan MD - 05/21/2018 9:30 AM 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 Date of Service: 05/21/2018 Subjective: Lucrecia Tomas is a 62 y.o. female. History of Present [id number] female history of diabetes and morbid obesity status post ventral hernia repair x6. 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 She returns to clinic today to discuss wound care and possible surgical intervention. She was recently discharged from and has completed her course of antibiotics. Patient was instructed to apply Dakin's soaked gauze to exposed mesh wound twice daily. The patient states that she has not been following her wound care instructions and has been using dry gauze only. She denies systemic signs of infection such as erythema around wound, increasing pain, fevers/chills, changes in bowel function. The patient's home health nurse became concerned with the odor of the exposed mesh and referred the patient to clinic for an exam. Review of Systems Patient denies fatigue, fever/chills, weight gain/loss, changes in vision, dizziness, difficulty with speech, chest pain, cough/wheeze, shortness of breath , chest pressure, abdominal pain, nausea/vomiting, bloody stool, melena, constipation/diarrhea, difficulty urinating, swelling of extremities, rashes, changes in mood. Objective: atorvastatin (LIPITOR) 40 mg tablet Take 40 mg by mouth daily. levothyroxine (SYNTHROID) 200 mcg tablet Take 200 mcg by mouth daily 30 minutes before breakfast. metFORMIN (GLUCOPHAGE) 1,000 mg tablet Take 1,000 mg by mouth twice daily with meals. sodium hypochlorite (DAKIN'S 1/2 STRENGTH) 0.25 % topical solution Apply topically to affected area twice daily. Vitals: 05/21/18 0938 BP: 118/77 Pulse: (!) 122 Resp: 18 Temp: 36.6 C (97.8 F) TempSrc: Oral Weight: 113.4 kg (250 lb) Height: 160 cm (62.99") Body mass index is 44.3 kg/m. Physical Exam GEN: A&O. NAD HEENT: MMM, EOM intact CV: Normal rate, regular rhythm PULM: Non-labored, CTAB ABD: soft, obese, 10 cm exposed synthetic mesh, no erythema, no purulence noted , mildly malodorous NEURO: Grossly intact EXT: no edema Assessment and Plan: 62-year-old female history of diabetes and morbid obesity status post ventral hernia repair x6, now with exposed mesh. -No signs of systemic or local tissue infection -Exposed mesh colonized,chronically infected, odor of mesh normal under the circumstances -Patient instructed to follow wound care instructions and use half-strength Dakin's soaked gauze packing twice daily -Warning signs of systemic infection including fever/chills, increasing pain, changes in bowel function discussed with patient -Patient instructed to continue her weight loss regimen as mesh excision with hernia repair at this point would be high risk with prohibitively high likelihood of recurrence -Patient verbalized understanding and will call clinic after further weight loss to schedule elective repair/excision of mesh with Dr. Lan at a later date Edil Gill MD ATTESTATION I personally observed the resident performing the E/M, discussed case with resident, and concur with resident documentation of history, physical assessment and treatment plan unless otherwise noted. Staff name: Helen Lan MD Date: 05/22/2018 HERMAL SYSTEM INSTALLER documented in this encounter Plan of Treatment Not on filedocumented as of this encounter Visit Diagnoses Diagnosis BMI 40.0-44.9, adult (HCC) - Primary Body Mass Index 40.0-44.9, adult Infected hernioplasty mesh, initial encounter ([facility]) documented in this encounter
--- OUTSIDE RECORDS SUMMARY | 2018-07-01 17:14 | XMS REPORT | Encounter Summary ---
Author Author [facility] Organization [facility] Address Unknown Phone Unavailable Care Team Providers Care Fulfillment Coordinator Name Role Phone No Pcp, Na PCP Unavailable Reason for Visit * Auth/Cert Referred By Contact Referred To Contact Status Reason Specialty Diagnoses / Procedures Diagnoses Open abdominal wall wound Syncope abdominal wound, syncope Encounter Details Care Team Description Date Type Department Rachel Garcia MD [address] [place] [address] [phone] Edil Robles MD [address] [place] [address] [phone] Suzanna Gibson DO [address] [place] [address] [phone] Chronic abdominal wound infection 05/08/2018 [facility] 05/10/[address] [place] [address] Social History Date Tobacco Use Types Packs/Day [...] Vital Signs Time Taken Vital Sign Reading 05/10/2018 11:32 AM BRAND COMMUNICATIONS MANAGER Blood Pressure 125/59 05/10/2018 11:32 AM BRAND COMMUNICATIONS MANAGER Pulse 76 05/10/2018 11:32 AM BRAND COMMUNICATIONS MANAGER Temperature 36.6 C (97.9 F) - Respiratory Rate - 05/10/2018 11:32 AM BRAND COMMUNICATIONS MANAGER Oxygen Saturation 98% - Inhaled Oxygen - Concentration 05/08/2018 11:00 PM BRAND COMMUNICATIONS MANAGER Weight 118.6 kg (261 lb 6.4 oz) 05/08/2018 11:00 PM BRAND COMMUNICATIONS MANAGER Height 160 cm (5' 3") 05/08/2018 11:00 PM BRAND COMMUNICATIONS MANAGER Body Mass Index 46.3 documented in this encounter Functional Status Date of Assessment Functional Status Response 05/09/2018 Does the patient have a hearing impairment: Yes documented as of this encounter Discharge Summaries * Suzanna Gibson DO - 05/10/2018 12:51 PM BRAND COMMUNICATIONS MANAGER Physician Discharge Summary Name: Lucrecia Tomas Date Of : 1955 Age: 62 years Admit date: 05/08/2018 Discharge date: 05/10/2018 Attending Physician: Suzanna Gibson DO Service: [facility] N- [id number] Physician Summary completed by: Suzanna Gibson DO Reason for hospitalization: Abdominal wound and exposed abdominal hernia mesh Significant PMH: 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 Brief Hospital Course: The patient was admitted and the following issues were addressed during this hospitalization: (with pertinent details). Mr. 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 Presented to in transfer after presented to the outside hospital with syncope. She was instructed to come to for second surgical opinion of her abdominal mesh. Initially there was concern for infection and infectious disease was consulted. Surgery was also consulted. She was initially started on Zosyn and vancomycin on admission. After evaluation by infectious disease but these were discontinued and patient was monitored off of antibiotics. Surgery consultation with recommendations to lose weight for BMI less than 40 prior to surgery. She was given the phone number for follow-up. Nutrition was consulted and patient was provided education. Wound team was also consulted for wound care recommendations and home health orders were updated. Patient was monitored on telemetry with no events, echocardiogram was obtained and was negative. Patient no other symptoms of syncope or presyncope during hospitalization. Can encouraged to check blood pressure and monitor fluid intake at home. Condition at Discharge: Stable Discharge Diagnoses: Hospital Problems Active Problems * (Principal) Chronic abdominal wound infection Hypothyroidism Morbid obesity (HCC) Hypertension Syncope Surgical Procedures: None Significant Diagnostic Studies and Procedures: noted in brief hospital course CT ABDOMEN AND PELVIS Clinical Indication: Unknown, old. Abdominal pain. hx recurrent hernias with mesh, chronic draining abdominal wound. Technique: Multiple contiguous axial images were obtained through the abdomen and pelvis following the administration of IV contrast material. Portal venous phase of postcontrast imaging was obtained. Post processing coronal and sagittal reconstruction images were made from the axial images. IV contrast: Omnipaque-350 Bowel contrast: None Comparison: None FINDINGS: Lower Thorax: Mild bibasilar atelectasis and pleural probable scarring. Heart size upper limits of normal. Prominent right epiphrenic lymph nodes are noted. Small hiatal hernia. Liver and Biliary system: The liver is normal in size without focal hepatic lesion. Cholecystectomy. No biliary ductal dilatation. The portal veins are patent. Spleen: Splenectomy. A few soft tissue nodules are noted within the left upper quadrant, likely small splenules. Adrenal Glands and Kidneys: Unremarkable. Pancreas and Retroperitoneum: Unremarkable. Aorta and Major Vessels: The abdominal aorta is normal in caliber with trace calcified atherosclerosis. Bowel, Mesentery and Peritoneal space: The large and small bowel are normal in caliber. Occasional distal colonic diverticula. Normal appendix. No abdominal ascites or mesenteric lymphadenopathy. No pneumoperitoneum. Pelvis: The urinary bladder is mildly distended, with trace intraluminal gas. The uterus and adnexa are unremarkable. No pelvic ascites or lymphadenopathy. Abdominal wall and Osseous Structures: Prior ventral abdominal mesh hernia repair. There is dehiscence of the overlying ventral abdominal wall incision. Mild adjacent soft tissue stranding and thickening. Several loops of small bowel closely appose the mesh repair underlying the dehiscence. There is laxity or wide neck hernia of the lower ventral abdominal wall with protrusion of fat and bowel loops. Trace gas collection with probable fluid noted along the left ventral abdominal wall just superficial to the peritoneal lining and paralleling the mesh (such as series 3 image 47). No drainable fluid collection is identified at this site. Two fat-containing right upper quadrant abdominal wall hernias. Mild thoracolumbar spondylosis. No destructive osseous lesions. Old healed bilateral superior and inferior pubic rami fracture deformities. IMPRESSION 1. Prior ventral abdominal hernia mesh repair. Dehiscence of the laparotomy incision overlying the hernia repair with a trace gas and probable fluid collection along the left ventral abdominal wall paralleling the mesh which may represent a tiny abscess. No drainable fluid collection identified. 2. Mild intraluminal gas within the urinary bladder, likely secondary to prior/recent instrumentation. Correlation with patient history. 3. Two fat-containing right upper quadrant abdominal wall hernias. 4. No bowel obstruction or ascites. Normal appendix. 5. Small hiatal hernia. By my electronic signature, I attest that I have personally reviewed the images for this examination and formulated the interpretations and opinions expressed in this report Finalized by Mustapha Crum M.D. on 05/09/2018 6:31 AM. Dictated by Aroldo Jolly M.D. on 05/09/2018 5:54 AM. Consults: General Surgery and ID Patient Disposition: Home with Home Health Care Patient instructions/medications: Activity as Tolerated It is important to keep increasing your activity level after you leave the hospital. Moving around can help prevent blood clots, lung infection (pneumonia ) and other problems. Gradually increasing the number of times you are up moving around will help you return to your normal activity level more quickly. Continue to increase the number of times you are up to the chair and walking daily to return to your normal activity level. Begin to work toward your normal activity level at discharge Report These Signs and Symptoms Please contact your doctor if you have any of the following symptoms: temperature higher than 100 degrees F, uncontrolled pain, persistent nausea and/ or vomiting, difficulty breathing, chest pain, severe abdominal pain, headache, unable to urinate, unable to have bowel movement or drainage with a foul odor Questions About Your Stay For questions or concerns regarding your hospital stay Call [phone]. If you have an emergency, do not call this number,and please dial 911. For non- urgent matters, please call during normal business hours- this will help direct your call to a physician more familiar with your care and needs Please note: * your hospital physicians will not be managing your ongoing outpatient care. Please direct all calls regarding ongoing outpatient care to your primary care physician whenever possible. * Do not call this number to request pain medications. No pain medications will be filled nor refilled by calling this number. * All refill requests should be directed to your primary care provider. Discharging attending physician: SUZANNA GIBSON [[id number]] Regular Diet Please continue with a healthy balanced diet. Wound Care Rinse wound with saline, loosely fill with 0.25% Dakins moistened 4x4's. Use barrier cream to the intact skin surrounding to prevent skin breakdown from moisture. Cover with 4x4s or ABD pad and secure with tape. Change Twice daily. Additional Discharge Instructions Surgery is recommending a BMI <40 prior to scheduling surgery, this is equivalent to a weight of 220 lb Current Discharge Medication List START taking these medications Details sodium hypochlorite (DAKIN'S 1/2 STRENGTH) 0.25 % topical solution Apply topically to affected area twice daily. Qty: 473 mL, Refills: 2 PRESCRIPTION TYPE: Normal CONTINUE these medications which have NOT CHANGED Details atorvastatin (LIPITOR) 40 mg tablet Take 40 mg by mouth daily. PRESCRIPTION TYPE: Historical Med levothyroxine (SYNTHROID) 200 mcg tablet Take 200 mcg by mouth daily 30 minutes before breakfast. PRESCRIPTION TYPE: Historical Med metFORMIN (GLUCOPHAGE) 1,000 mg tablet Take 1,000 mg by mouth twice daily with meals. PRESCRIPTION TYPE: Historical Med Scheduled appointments: You will need to follow-up with Dr. Lan in hernia clinic as an outpatient (Surgery) Pending items needing follow up: none Signed: Suzanna Gibson DO 05/11/2018 cc: Primary Care Physician: No Pcp, Na Verified Referring physicians: Jv Warren APRN Additional provider(s): D COMMUNICATIONS MANAGER documented in this encounter Discharge Instructions * Appointments* Suzanna Gibson DO - 05/10/2018 9:11 AM BRAND COMMUNICATIONS MANAGER You will need to follow-up with Dr. Lan in hernia clinic as an outpatient (Surgery) D COMMUNICATIONS MANAGER documented in this encounter Medications at Time [...] as of this encounter Progress Notes * Nazia Barney RN - 05/10/2018 12:33 PM BRAND COMMUNICATIONS MANAGER Discharge education printed and reviewed with pt. Pt states understanding and readiness for discharge. Medications with pt, IV removed, pt awaiting hospital transport at this time. D COMMUNICATIONS MANAGER * Suzanna Gibson DO - 05/10/2018 8:18 AM BRAND COMMUNICATIONS MANAGER Discharge Day Progress Note Name: Lucrecia Tomas Today's Date: 05/10/2018 Admission Date: 05/08/2018 LOS: 1 day Patient seen and examined today. No symptoms overnight. Discussed weight loss , wound care and ongoing follow up. Echo normal, telemetry unremarkable. No fevers or chills overnight. Feels comfortable with plan and all questions were answered. Home health orders updated. Number provided in discharge paper work for surgery follow up. Disposition: Discharge to home w/ home health today. Suzanna Gibson Pager: [phone] >35 minutes in [id number] time spent with patient, patient/family counseling, coordination of care, and completion of discharge summary. <><><><><><><><><><><><><><><><><><><><><><><><><><><><><><> Discharge Medication Reconciliation Medication List Take these medications at their scheduled times atorvastatin 40 mg tablet Dose: 40 mg Take 40 mg by mouth daily. Commonly known as: LIPITOR DAKIN'S SOLUTION 0.25 % topical solution Apply topically to affected area twice daily. Generic drug: sodium hypochlorite levothyroxine 200 mcg tablet Dose: 200 mcg Take 200 mcg by mouth daily 30 minutes before breakfast. Commonly known as: SYNTHROID metFORMIN 1,000 mg tablet Dose: 1000 mg Take 1,000 mg by mouth twice daily with meals. Commonly known as: GLUCOPHAGE D COMMUNICATIONS MANAGER * Mariela Balderrama RN - 05/09/2018 10:19 AM BRAND COMMUNICATIONS MANAGER 1015 patient off unit to Echo 1120 patient back on unit D COMMUNICATIONS MANAGER * Alize Schmitt PHARMD - 05/09/2018 9:51 AM BRAND COMMUNICATIONS MANAGER Pharmacy Vancomycin Note Subjective: Lucrecia Tomas is a 62 y.o. female being treated for abdominal wound infection . Objective: Current Vancomycin Orders Medication Dose Route Frequency vancomycin (VANCOCIN) 1,750 mg in dextrose 5% (D5W) IVPB 1,750 mg Intravenous Q12H* vancomycin, pharmacy to manage 1 each Service Per Pharmacy Start Date of Vancomycin therapy: 05/09/2018 Additional Abx: Zosyn Cultures: White Blood Cells Date/Time Value Ref Range Status 05/09/2018 0110 9.1 4.5 - 11.0 K/UL Final Creatinine Date/Time Value Ref Range Status 05/09/2018 0110 0.74 0.4 - 1.00 MG/DL Final Blood Urea Nitrogen Date/Time Value Ref Range Status 05/09/2018 0110 17 7 - 25 MG/DL Final Estimated CrCl: 98.2 Intake/Output Summary (Last 24 hours) at 05/09/2018 0952 Last data filed at 05/09/2018 0806 Gross per 24 hour Intake 0 ml Output 800 ml Net -800 ml Actual Weight: 118.6 kg (261 lb 6.4 oz) Dosing BW: 118.6 kg Drug Levels: Vancomycin Trough Date/Time Value Ref Range Status 05/09/2018 011 7.5 (L) 10.0 - 20.0 MCG/ML Final Assessment: Target levels for this patient: 15-20. Evaluation of level(s): Patient received vancomycin at outside hospital prior to transfer. A random vancomyinc level was obtained prior to re-dosing. Random vancomycin level is 7.5 mcg/mL and acceptable to re-dose with vancomycin. Plan: 1. Patient started on Vancomycin 1750 mg IVPB every 12 hours. Will continue current regimen. 2. Next scheduled level(s): prior to the 4th dose of current regimen. Sooner if acute change in clinical status. 3. Pharmacy will continue to monitor and adjust therapy as needed. Alize Schmitt PHARMD 05/09/2018 D COMMUNICATIONS MANAGER * John Chin MD - 05/09/2018 9:11 AM BRAND COMMUNICATIONS MANAGER Acute care surgery will sign off at this time. Please call [phone] with further questions, changes or concerns. --Patient to continue to follow-up in clinic for outpatient management-- John Chin MD [id number] D COMMUNICATIONS MANAGER * Becca Rea RN - 05/08/2018 11:07 PM BRAND COMMUNICATIONS MANAGER Patient arrived to room # (0112*) via cart accompanied by transport. Patient transferred to the bed with assistance. Bedside safety checks completed. Initial patient assessment completed, refer to flowsheet for details. Admission skin assessment completed by: Becca Rea and Chiquita Stephenson RN Pressure Injury Present on Hospital Admission (within 24 hours): No 1. Occiput: No 2. Ear: No 3. Scapula: No 4. Spinous Process: No 5. Shoulder: No 6. Elbow: No 7. Iliac Crest: No 8. Sacrum/Coccyx: No 9. Ischial Tuberosity: No 10. Trochanter: No 11. Knee: No 12. Malleolus: No 13. Heel: No 14. Toes: No 15. Assessed for device associated injury No 16. Nursing Nutrition Assessment Completed No Large open surgical wound at mid abdomen. RN changed dressing as it was saturated with wet to dry gauze + abd pad and paper tape. See Doc Flowsheet for additional wound details. INTERVENTIONS: D COMMUNICATIONS MANAGER documented in this encounter H&P Notes * Suzanna Gibson DO - 05/09/2018 12:46 AM BRAND COMMUNICATIONS MANAGER Admission History and Physical Examination Name: Lucrecia Tomas Admission Date: 05/08/2018 Assessment/Plan: Principal Problem: Chronic abdominal wound infection Active Problems: Syncope Hypothyroidism Morbid obesity (HCC) Hypertension 62-year-old female with hypothyroidism, type 2 diabetes, hypertension, and morbid obesity who presented to [facility] after syncopal episode, in the setting of recent increase in foul drainage from abdominal wound. Abdominal wound History of multiple abdominal wound infections With multiple courses of antibiotics for infected wound/mesh after hernia repair 10 years ago. Last surgery December 1999 800 on, treated with linezolid , wound VAC. Had later developed recurrent infection, completed treatment with oral Bactrim on 05/03/18. With increased foul odor/drainage beginning 05/01/18. Plan - Follow blood, wound cultures obtained at [facility] - Admission CBC with differential, CMP, CRP, blood cultures x2 - Consult acute care surgery for recommendations regard need for surgical intervention - Start vancomycin (pharmacy to manage), zosyn - CT abd/pelvis to be uploaded into our system - Wound consult - Likely will need ID consultation depending on clinical course Syncope Suspect due to hypotension/orthostatic hypotension - has been recently taken off of hypertensive due to hypotension, and found to have likely infection. Had brief shaking episode and staring, but no tongue biting, postictal state, or incontinence to suggest seizure. Vasovagal syncope a consideration as well Plan - Telemetry - EKG, echo, BNP - Orthostatic vitals - 1 L LR overnight at 125 ml/hr - May consider 1 hr EEG Type 2 diabetes - Hold home metformin - Low dose sliding scale aspart Hypothyroidism - TSH - Continue home levothyroxine 200 mcg daily Hyperlipidemia - Home pravastatin 20 mg qhs Hepatitis C - as noted in outside records; unclear if treated previously FEN: 1 L IVF, monitor lytes prn, NPO until surgery eval PPx: LMWH Full code, confirmed on admission - ok with resuscitation but would not prolonged life support Dispo: admit to inpatient Alirio Robles MD Hospitalist Pager [phone] ATTESTATION I personally performed the portillo portions of the E/M visit, reviewed my colleague' s documentation of history, physical exam, assessment, and treatment plan and concur unless otherwise noted. Updates to the assessment/plan include: Patient seen with children present. All questions answered. ID consulted: antibiotics not curative, will need surgical intervention, discontinue vanc and zosyn today. Will monitor off antibiotics. Treat only with systemic symptoms. Discussed syncopal episode, no postictal state, has been normotensive here. Echo unremarkable. If remains stable w/o further syncope, likely can discharge home tomorrow. Will have nutrition and PT/OT consulted to see her for further education . Staff name: Suzanna Gibson, DO Date: 05/09/2018 Med-private Team N Team Pager [phone] __ Primary Care Physician: Adeline Pcp, Na Chief Complaint: Syncope, abdominal wound History of Present Illness: Lucrecia Tomas is a 62 y.o. female with a history of type 2 diabetes, hypertension, hyperlipidemia, hypothyroidism, and multiple abdominal surgeries for infected mesh after hernia repair, who was transferred to from [facility] after syncopal episode and due to concern for recurrent abdominal infection. She has undergone multiple surgeries for infected mesh over the past few years, the last of which took place at [facility] in December 2017. Previous surgeries had been at [facility] in [place], [place]. After the surgery in December, she was treated with a course of linezolid, improved, and was discharged home for a few weeks. After that, she began to have increased L odorous drainage from the wound, and returned to the hospital where she had an I &D and wound VAC placed. Eventually the wound VAC was removed, and she was continuing to receive daily wound care via home health. The wound has been gradually decreasing in size until approximately 2 weeks ago. She has been taking Bactrim for recurrent MRSA infection and completed a prolonged course last Sunday, 05/03. 2 days prior to completing the antibiotics, however, the patient began to notice increased foul-smelling drainage from the wound again. Also of note, she has a history of hypertension but had been taken off of all antihypertensives by her primary care physician 2-3 weeks ago due to steady decline in blood pressure. On 05/08, She was at home with her daughter and was attempting to get out of a chair when she lost consciousness. This was a witnessed episode, where the patient was unresponsive for approximately 3 minutes. She had information engineer to chair and had shaking of her arms. She reports feeling lightheaded prior to the event without palpitations. She had a brief staring spell, but after regaining consciousness, was not confused. No tongue biting or bowel/bladder incontinence. No history of syncope. Initial blood pressure measurements after EMS was called showed a systolic pressure in the 80s. She was then taken to [facility], who recommended transfer to for further evaluation of her abdominal wound. the patient is currently without complaints. She denies any fever chills, chest pain, dyspnea, cough, nausea vomiting, abdominal pain, diarrhea or constipation. No orthopnea, leg swelling, palpitations. 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) Type 2 diabetes mellitus (HCC) Past Surgical History: Procedure Laterality Date ABDOMINAL HERNIA REPAIR with recurrent infections including MRSA Family History Problem Relation Age of Onset Heart Attack Mother Social History Socioeconomic History Marital status: Spouse name: Not on file Number of children: Not on file Years of education: Not on file Highest education level: Not on file Social Needs Financial resource strain: Not on file Food insecurity - worry: Not on file Food insecurity - inability: Not on file Transportation needs - medical: Not on file Transportation needs - non-medical: Not on file Occupational History Not on file Tobacco Use Smoking status: Never Smoker Smokeless tobacco: Never Used Substance and Sexual Activity Alcohol use: No Frequency: Never Drug use: No Sexual activity: Not on file Other Topics Concern Not on file Social History Narrative Not on file Immunizations (includes history and patient reported): There is no immunization history on file for this patient. Allergies: Patient has no known allergies. Medications: Metformin 500 mg twice daily Levothyroxine 200 mcg daily Pravastatin 20 mg nightly Review of Systems: A 12 point review of systems was obtained, and is negative except as noted in the HPI. Physical Exam: Vital Signs: Last Filed In 24 Hours Vital Signs: 24 Hour Range BP: 129/80 (05/08 2299) Temp: 36.7 C (98 F) (05/08 2299) Pulse: 71 (05/08 2299) Respirations: 18 PER MINUTE (05/08 2299) SpO2: 99 % (05/08 2299) O2 Delivery: None (Room Air) (05/08 2299) Height: 160 cm (63") (05/08 2299) BP: (129)/(80) Temp: [36.7 C (98 F)] Pulse: [71] Respirations: [18 PER MINUTE] SpO2: [99 %] O2 Delivery: None (Room Air) General: Alert, cooperative, no distress, appears stated age Head: Normocephalic, without obvious abnormality, atraumatic Eyes: Conjunctivae/corneas clear. PERRL, EOMs intact. Throat: Lips, mucosa and tongue normal. Neck: Supple, symmetrical, trachea midline Lungs: Clear to auscultation bilaterally, no wheezes or rales. Normal work of breathing on room air. Heart: Normal rate, regular rhythm, S1 & S2 normal, no murmur rubs or gallops Abdomen: Soft, non-tender, nondistended, no rebound or guarding. Wound as noted below Peripheral pulses: 2+ and symmetric radial pulses Skin: Skin color, texture, turgor normal. Open abdominal wound ~3-4 x1.5 cm cm with minimal purulence noted Lymph nodes: Cervical, supraclavicular nodes normal Neurologic: CNII - XII intact, moves all 4 extremities w/o apparent deficit Psychiatric: Calm, cooperative, oriented to person, place, and time. Normal affect, judgement. Extremities: no LE edema Lab/Radiology/Other Diagnostic Tests: 24-hour labs: Results for orders placed or performed during the hospital encounter of (from the past 24 hour(s)) POC GLUCOSE Collection Time: 05/09/18 12:25 AM Result Value Ref Range Glucose, POC 102 (H) 70 - 100 MG/DL Labs at [facility]: ABG 7.36/ CBC hemoglobin 13, WBC 12.4, platelets 507 Troponin negative CMP sodium 138, potassium 4.6, bicarb 20, chloride 107, anion gap 16, creatinine 0.9, albumin 4.1, calcium 10.5, glucose 138, AST 25, AST 16 UA with trace ketones, pH 5.5, negative for protein, negative for nitrites, trace leukocytes with 5-10 WBCs, 2-5 RBCs, 1+ bacteria, 10-20 epithelial cells POC Glucose (Download): (!) 102 (05/09/18 0025) No pertinent radiology. CT head and CT abd/pelvis from OSH without available report. Imaging to be uploaded into our system by unit staff. Edil Robles MD Pager [phone] COMMUNICATIONS MANAGER documented in this encounter Consult Notes * Kelley Centeno - 05/10/2018 12:51 PM BRAND COMMUNICATIONS MANAGER Associated Order(s): CONSULT DIETITIAN CLINICAL NUTRITION Clinical Nutrition Assessment Summary NAME:Lucrecia Tomas :1955 AGE : 62 y.o. ADMISSION DATE: 05/08/2018 DAYS ADMITTED: LOS: 1 day Comments: Consult for weight loss education. Met with patient prior to discharge and educated her on healthy wt loss to appropriate BMI. Patient was very receptive. Provided and reviewed nutrition information to promote healthy wt loss of approx 1 lb weekly. Encouraged pt to set goal of 10 pounds wt loss and overall goal of 30 pounds wt loss to achieve a more healthy weight status. Discussed plate method. Encouraged pt to make half of plate from fruit and vegetables. Encouraged lean meats and whole grains. Encouraged pt to consume 3 meals daily and avoid snacking between meals. Encouraged pt to keep a food diary to aid in accountability of dietary intake. Encouraged pt to avoid eating empty calorie foods or to reduce portion sizes of empty calorie foods. Pt verbalized understanding, expect good compliance. Recommendation: DM 60g CHO per meal Kelley Centeno, MS, RD, LD Pager: [phone] Office: [phone] COMMUNICATIONS MANAGER * Cammie Duckworth RN - 05/09/2018 12:13 PM BRAND COMMUNICATIONS MANAGER Associated Order(s): CONSULT WOUND/OSTOMY TEAM NURSE Wound Ostomy Note NAME:Lucrecia Tomas :1955 AGE: 62 y.o. ADMISSION DATE: 05/08/2018 DAYS ADMITTED: LOS: 0 days Reason for Consult/Visit: wound not pressure Assessment/Plan: Principal Problem: Chronic abdominal wound infection Active Problems: Hypothyroidism Morbid obesity (HCC) Hypertension Syncope Wounds (NOT for Pressure Injuries) 05/08/18 2300 Anterior Abdomen Surgical Incision (Active) 05/08/18 2300 Abdomen Wound Orientation: Anterior Wound Type: Surgical Incision Wound Type:: Wound Description (Comments): Agree With My Assessment? 05/09/2018 11:23 AM Wound Base Assessment Moist;West exposed mesh/suture 05/09/2018 12:00 PM Surrounding Skin Assessment Intact;rolled edges 05/09/2018 12:00 PM Wound Site Closure None 05/09/2018 7:21 AM Wound Drainage Amount Small 05/09/2018 12:00 PM Wound Drainage Description Foul Odor;West 05/09/2018 12:00 PM Wound Dressing Status 05/09/2018 11:23 AM Wound Dressing and / or Treatment Gauze (4X4);Hypafix Tape 05/09/2018 11:23 AM Wound Length (cm) 7 cm 05/09/2018 12:00 PM Wound Width (cm) 3 cm 05/09/2018 12:00 PM Wound Depth (cm) 0.4 cm 05/09/2018 12:00 PM Wound Surface Area (cm^2) 21 cm^2 05/09/2018 12:00 PM Wound Volume (cm^3) 8.4 cm^3 05/09/2018 12:00 PM Number of days: 1 62 y.o. female with morbid obesity and DMII well controlled on metformin transfered from OSH for syncopal work-up and surgical evaluation for chronic abdominal wound/mesh infections. Wound team consult for chronic open abdominal wound. Measurements as above. Entire wound base with visual mesh and suture. West drainage with strong odor. Patient will follow up with outpatient surgery for possible mesh excision/ hernia repair. RECOMMEND: Rinse wound with saline, loosely fill with 0.25% Dakins moistened 4x4's. Use barrier cream to the intact skin surrounding to prevent skin breakdown from moisture. Cover with 4x4s or ABD pad and secure with tape. Change BID --- Primary Team is responsible for placing wound care orders. 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 Converted laparoscopic -> open. Prolonged lysis of adhesions. No enterotomy noted, healthy appearing bowel. Repaired hernia and closed -Inferior aspect of incision from 12/30 surgery opened in Jan 2018, has been draining malodorous purulent drainage since -02/03 wound swab ([facility]): MRSA (S clinda, dapto, rifampin, TMP/SMX, tetracycline , vancomycin (ROXANNA=1) -02/03 BC x2 ([facility]): NG -02/04 at [facility] - I&D was performed with wound vac placement. IV abx --> PO Bactrim - 02/04 I&D culture: MRSA (S clinda, dapto, rifampin, TMP/SMX, tetracycline, vancomycin (ROXANNA=2) -03/01 Wound swab: MRSA S dapto, tetracycline, vancomycin (ROXANNA=2). 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 No progression of symptoms, completed 2 week course in Feb-Mar 2018 Episode of LOC at home -Unclear etiology - ?hypotension related. Improved with IVF, CT head negative Recommendations: -Patient with persistent drainage from abdominal hernia repair site with mesh, antibiotics will not be curative in this case as will continue to be reinfected , will need surgical intervention with mesh removal once she is deemed an appropriate candidate from the surgical service -For now, no systemic signs/symptoms of infection, stable drainage, no cellulitis - will d/c vancomycin and Zosyn today, she needs to continue local wound care as per wound care team and surgery team -Advised patient to monitor for signs of systemic infection, watch for cellulitis, increased abdominal pain, fever, swelling- if pt does start having these issues, could start empiric therapy based on prior wound swab culture data , I advised the patient if any of that she will need to go to emergency department or seek medical care -Follow 05/08 wound swab and blood cultures from [facility] - would not treat based on swab results unless new systemic infectious symptoms -Monitor off abx therapy -ID will sign off at this time, please contact if any further questions or concerns Narinder Ward DO Infectious Disease Fellow Pager [phone] Patient seen and discussed with Dr. Benjamin ATTESTATION I have seen and examined the patient. I discussed the case with Resident/ fellow. I concur with the Fellow/Resident findings documented in this note. I personally reviewed the history, laboratory and microbiology data as well as imaging studies. I reviewed patient record and summarized them, I reviewed culture results. At this time patient has chronic infection of her abdominal wall mesh. Antibiotics will not be helpful at this time unless the patient has systemic symptoms. Antibiotic will predispose her to side effect and increased resistance. At this time I think continue local wound care. And follow with surgery Staff name: Lino Benjamin MD Date: 05/09/2018 History of Present Illness Lucrecia Tomas is a 62 y.o. female with PMH of DM type II, HTN, hypothyroidism, ? HCV, and hx of multiple abdominal surgeries for ventral hernia with mesh replacement who ID is asked to evaluate for possible mesh infection. Patient initially with trauma 35 years ago - underwent exploratory laparotomy with repair of a liver laceration and splenectomy. She developed an umbilical hernia after becoming , then underwent repair about 25 years ago. Since that time, she has had intermittent incarceration of her hernia requiring mesh removal and replacement for repair. Last repair was in 12/2017 in [place]- op report noted severe amount of adhesions of the bowel and omentum through the anterior abdominal wall, small bowel severely adhered to mesh. Converted laparoscopic -> open. Performed prolonged lysis of adhesions. No enterotomy noted, healthy appearing bowel. Repaired hernia with mesh and closed the wound. About 4 weeks later she developed an opening at the inferior aspect of her incision which initially drained clear fluid followed by purulent and malodorous discharge. She returned to the hospital at [facility] in [place] - wound swab obtained on 02/03, I&D was performed the following day with wound vac placement. Both cultures grew MRSA. Patient was started on IV abx, converted to PO Bactrim. Shortly after completing the Bactrim course, she had recurrence of malodorous drainage. Wound swab was repeated, this time with more resistant MRSA - was treated with linezolid x2 weeks which cause tongue swelling and pain which never progressed, no lip swelling, no difficulty breathing or swallowing. Completed the 2 week course. Wound vac was removed in early March, has been packing with dry gauze 4 times per day since. Shortly after completing the linezolid, she had worsening drainage again. Eventually another culture was obtained on 04/01, again grew MRSA. Received at least one more course of Bactrim, maybe 2. Last course completed last Sunday, but this time after initial improvement in drainage it actually worsened while still having 2 days of therapy left. Has just been managing with home wound care since. Presented to [facility] yesterday - she was attempting to get out of the chair, lost consciousness, was unresponsive x3 minutes. Had some shaking of her arms while holding on to the chair. No post-ictal confusion. No bowel/ blader incontinence. She was hypotensive in the ED, improved with fluid resuscitation. Mild leukocytosis of 12.4K, no tachycardia. CT head negative. Transferred to [facility] for further management. On arrival to , WBC had improved to 9.1 after IVF, CRP normal at 0.34. No fever/chills, no surrounding cellulitis currently, no other systemic signs/ symptoms of infection. Feeling overall well currently. No recurrence of the episode she had yesterday. CT abd/pelvis with prior ventral abdominal mesh hernia repair with dehiscence of the overlying ventral abdominal wall incision, mild adjacent soft tissue stranding and thickening, with several loops of small bowel closely apposing the mesh. There is a trace gas and fluid collection along the L ventral abdominal wall paralleling the mesh, possibly representing a tiny abscess. 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 R clinda, rifampin, TMP/SMX 04/01 Wound swab: MRSA (S clinda, dapto, rifampin, TMP/SMX, tetracycline, vancomycin (ROXANNA=2) Antimicrobial Start date End date Vancomycin 05/08 active Zosyn 05/08 active Bactrim ? 05/03/18 Estimated Creatinine Clearance: 98.2 mL/min (based on SCr of 0.74 mg/dL). 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) Type 2 diabetes mellitus (HCC) Past Surgical History Past Surgical History: Procedure Laterality Date ABDOMINAL EXPLORATION SURGERY repair of liver laceration, splenectomy ABDOMINAL HERNIA REPAIR with mesh, c/b chronic infection with MRSA CHOLECYSTECTOMY open HERNIA REPAIR x4, in addition to other hernia repairs listed SPLENECTOMY UMBILICAL HERNIA REPAIR Social History Marital status/area of residence: Lives in [facility], son at home Travel history: No travel, lived in [place] [facility] [facility] all her life Animal, bird exposures: 2 dogs at home. One just gave yesterday Environmental/outdoor/food exposures: None Recent ill contacts: None Drugs of abuse: None Social History Tobacco Use Smoking status: Never Smoker Smokeless tobacco: Never Used Substance Use Topics Alcohol use: No Frequency: Never Family History Family History Problem Relation Age of Onset Heart Attack Mother Allergies No Known Allergies Review of Systems A comprehensive 14-point review of systems was negative with exception of: Loss of consciousness, shaking yesterday - resolved Malodorous abdominal drainage, open wound - stable Medications Scheduled Meds: enoxaparin (LOVENOX) syringe 40 mg 40 mg Subcutaneous BID insulin aspart U-100 (NOVOLOG FLEXPEN) injection PEN 0-6 Units 0-6 Units Subcutaneous ACHS (22) levothyroxine (SYNTHROID) tablet 200 mcg 200 mcg Oral QDAY(07) piperacillin/tazobactam (ZOSYN) 3.375 g in sodium chloride 0.9% (NS) 100 mL IVPB (MB+) 3.375 g Intravenous Q6H* pravastatin (PRAVACHOL) tablet 20 mg 20 mg Oral QHS vancomycin (VANCOCIN) 1,750 mg in dextrose 5% (D5W) IVPB 1,750 mg Intravenous Q12H* Continuous Infusions: PRN and Respiratory Meds:acetaminophen Q6H PRN, melatonin QHS PRN, ondansetron ( ZOFRAN) IV Q6H PRN, vancomycin, pharmacy to manage Per Pharmacy Physical Examination Vital Signs: Last Vital Signs: 24 Hour Range BP: 127/70 (05/09 805) Temp: 36.3 C (97.4 F) (05/09 805) Pulse: 69 (05/09 805) Respirations: 18 PER MINUTE (05/09 805) SpO2: 96 % (05/09 805) O2 Delivery: None (Room Air) (05/09 805) Height: 160 cm (63") (05/08 2300) BP: (110-129)/(70-90) Temp: [36.3 C (97.4 F)-36.7 C (98 F)] Pulse: [64-73] Respirations: [16 PER MINUTE-18 PER MINUTE] SpO2: [96 %-99 %] O2 Delivery: None (Room Air) General appearance: Awake, alert, oriented, comfortable in chair, NAD HENT: mucus membranes moist, no oral lesions/thrush Eyes: PERRL, EOM grossly intact, Conj nl Neck: supple, no lymphadenopathy Lungs: CTA bilaterally, no wheezing, rhonchi, rales appreciated Heart: Regular rhythm, reg rate, no murmur or rub Abdomen: Obese, soft. Periumbilical wound with exposed sutures and mesh at the wound base - malodorous brown drainage. No surrounding cellulitis. Mildly tender around wound Ext: No cyanosis, trace lower extremity edema Skin: no rashes/lesions Psych: Pleasant mood, normal affect Lines: PIV Lab Review Hematology Recent Labs 05/09/18 0110 WBC 9.1 HGB 11.9* HCT 36.6 PLTCT 455* PTT 24.3 INR 1.1 Chemistry Recent Labs 05/09/18 0110 NA 136* K 3.7 CL 107 CO2 23 BUN 17 CR 0.74 GFR >60 GLU 132* CA 9.1 ALBUMIN 3.5 ALKPHOS 45 AST 18 ALT 13 TOTBILI 0.8 Microbiology, Radiology and other Diagnostics Review Microbiology data reviewed. Pertinent radiology images viewed. 05/08 CT abd/pelvis Narinder Ward DO Pager [phone] Infectious Diseases D COMMUNICATIONS MANAGER * Ludy Jo MD - 05/09/2018 2:58 AM BRAND COMMUNICATIONS MANAGER Associated Order(s): CONSULT ACUTE CARE/INPATIENT GENERAL SURGERY PHYSICIAN Acute/Inpatient Surgery Consult Patient: Lucrecia Tomas, [id number] Admission Date: 05/08/2018, LOS: 0 days Admission Diagnosis: Open abdominal wall wound [S31.109A] Syncope [R55] Date of Service: May 09, 2018 CONSULT ACUTE CARE/INPATIENT GENERAL SURGERY PHYSICIAN Consult performed by: Ludy Jo MD Consult ordered by: Edil Robles MD Reason for consult: "h/o recurrent abdominal wound infections due to MRSA, transferred from OSH for surgical eval. Would you recommend surgical intervention for recurrent infection?" ASSESSMENT: 62 y.o. female with morbid obesity and DMII, hx trauma ex-lap w/ repair of liver lac and splenectomy 35y ago c/b umbilical hernia s/p hernia repairs x6 with mesh removal and replacement x4. Most recent hernia repair was in 12/2017 for incarcerated ventral hernia c/b chronic wound infection with MRSA s/p I&D, multiple rounds of antibiotics, with exposed mesh with prolene suture at base of wound on exam. Surgery consulted to determine if surgical intervention would be appropriate for her in the setting of chronic infection. PLAN: - No acute surgical intervention indicated at this time - Given that mesh is exposed at the wound base with surrounding purulence, mesh is likely seeded and will need to be removed to irradicate infection - Prior to surgical intervention, we advised patient to lose weight with goal BMI < 40 - Please obtain outside hospital surgical records from [facility], particularly for most recent operation in December - Please obtain CT Abd/Pelv with contrast for surgical planning - Recommend continuing broad spectrum antibiotics with MRSA coverage - If the patient remains stable clinically, she will need to follow-up with Dr. Lan in hernia clinic as an outpatient - If patient becomes febrile or hemodynamically unstable and chronic wound is thought to be source of sepsis, she may require urgent surgical intervention Will discuss with Dr. Schuster HPI: Lucrecia Tomas is a 62 y.o. female with morbid obesity and DMII well controlled on metformin (Hg A1C 6.4 in 12/2017), who presents to the hospital as a transfer from OSH for syncopal work-up and surgical evaluation for chronic abdominal wound. She states that this morning, she felt nauseous and passed out for around 3 minutes. She was hypotensive upon arrival to [facility] and was given 1L bolus and broad spectrum antibiotics for possible sepsis. Vital signs were otherwise stable. Labs demonstrated mild leukocytosis to 12, Cr at baseline 0.95. Regarding her chronic abdominal wound, the patient states that she has a long history of abdominal surgeries. Approximately 35 years ago, she experienced a trauma and underwent exploratory laparotomy with repair of liver laceration and splenectomy. She did well post-operatively, but developed an umbilical hernia some time while with her son. Around 10 years after her trauma ex-lap, she underwent elective repair of her umbilical hernia. She recurrent around 4-5 years later, and eventually developed an incarcerated umbilical hernia requiring emergent repair. She recurred again 4-5 years later and underwent elective repair of her hernia--she believes mesh was utilized at this time. She then recurred 3 additional times around 4-5 years after prior repairs, with each repair occurring due to presence of incarcerated ventral hernias. Mesh was removed and replaced with each surgery. Her most recent repair was in 12/2017 when she presented with an incarcerated ventral hernia. She states that her surgeon informed her that she had bowel protruding through her mesh in multiple areas and the operation was very difficult due to presence of scar tissue and adhesions. She states that her surgeon told her she had little abdominal wall musculature to close the wound with and a very large piece of mesh spanning her abdominal wall was utilized for closure. She is unsure whether components separation was attempted. Approximately 4 weeks after this repair, she developed a small opening in the inferior aspect of her incision, with clear drainage. The drainage quickly became malodorous and purulent; however, patient denies fecal odor. She underwent I&D, received IV antibiotics and was discharged with bactrim. After the course of bactrim, she recurred and a wound vac was placed. She then developed an infection with the wound vac in place and the wound vac was removed. She was given another course of bactrim with resolution of symptoms. She recurred again 1 week ago and was given a course of bactrim, but recurred before the course was completed. She denies fevers, chills , vomiting, constipation, diarrhea, fecal drainage from wound, headache, shortness of breath, and chest pain. Past Medical History: Diagnosis Date Hypertension Hypothyroidism [...] Use Topics Alcohol use: No Frequency: Never ROS: Review of Systems Constitutional: Negative for chills, fever and malaise/fatigue. Respiratory: Negative for shortness of breath. Cardiovascular: Negative for chest pain. Gastrointestinal: Positive for nausea. Negative for abdominal pain, constipation , diarrhea and vomiting. Chronic wound Skin: Negative for rash. Neurological: Negative for focal weakness. Syncopal event Endo/Heme/Allergies: Does not bruise/bleed easily. Psychiatric/Behavioral: The patient is not nervous/anxious. All other systems reviewed and are negative. PHYSICAL EXAM: BP: (129)/(80) Temp: [36.7 C (98 F)] Pulse: [71] Respirations: [18 PER MINUTE] SpO2: [99 %] O2 Delivery: None (Room Air) Physical Exam Constitutional: She is oriented to person, place, and time and well-developed, well-nourished, and in no distress. Morbidly obese HENT: Head: Normocephalic and atraumatic. Eyes: Pupils are equal, round, and reactive to light. Cardiovascular: Intact distal pulses. Pulmonary/Chest: Effort normal. Abdominal: Soft. She exhibits no distension. There is no tenderness. Midline, inferior abdominal wound with exposed synthetic mesh at base with prolene suture, malodorous scent with scant purulent drainage; approximately 10cm x 4cm Musculoskeletal: Normal range of motion. Neurological: She is alert and oriented to person, place, and time. Skin: Skin is warm. Psychiatric: Affect normal. Vitals reviewed. Lab/Radiology/Other Diagnostic Tests: Lab Results Component Value Date/Time NA 136 (L) 05/09/2018 01:10 AM K 3.7 05/09/2018 01:10 AM CL 107 05/09/2018 01:10 AM CO2 23 05/09/2018 01:10 AM BUN 17 05/09/2018 01:10 AM CR 0.74 05/09/2018 01:10 AM MG 1.8 05/09/2018 01:10 AM Lab Results Component Value Date/Time HGB 11.9 (L) 05/09/2018 01:10 AM HCT 36.6 05/09/2018 01:10 AM WBC 9.1 05/09/2018 01:10 AM PLTCT 455 (H) 05/09/2018 01:10 AM INR 1.1 05/09/2018 01:10 AM Lab Results Component Value Date/Time GLUPOC 102 (H) 05/09/2018 12:25 AM GENERAL RAD CHEST EXTERNAL IMAGING Final Result CT HEAD EXTERNAL IMAGING Final Result 2-D + DOPPLER ECHOCARDIOGRAM (Results Pending) Ludy Jo MD Personal Pager: [phone] Team Pager: [phone] D COMMUNICATIONS MANAGER Associated attestation - Gabino Schuster MD - 05/09/2018 6:35 AM BRAND COMMUNICATIONS MANAGER ATTESTATION I personally performed the portillo portions of the E/M visit, discussed case with resident and concur with resident documentation of history, physical exam, assessment, and treatment plan unless otherwise noted. Recurrent incisional hernia without obstruction or gangrene/mesh infection - antibiotic therapy for now, no evidence of underlying fistula or abscess on CT scan. Patient can follow up as outpatient for evaluation for mesh excision/ hernia repair. Staff name: Gabino Schuster MD Date: 05/09/2018 documented in this encounter Miscellaneous Notes * Case Mgmt DC Plan - Mitra Lizarraga RN - 05/10/2018 10:43 AM BRAND COMMUNICATIONS MANAGER Case Management Progress NoteNAME:Lucrecia Tomas :1955 AGE: 62 y.o. ADMISSION DATE: 05/08/2018 DAYS ADMITTED: LOS: 1 day Todays Date: 05/10/2018 Plan: Discharge home today with resumption of home health through [facility] ( ; fax: [phone]) for wound care, PT , and OT. Pt's daughter to drive her home. Interventions ? Support ? Info or Referral ? Discharge Planning Per Dr Gibson, pt stable for ak home today. ID has signed off - no antibiotic therapy required, as surgical intervention including removal of mesh will be required once pt is an appropriate surgical candidate Acute surgery has signed off - prior to surgical intervention, they advise pt to lose weight to reduce BMI to < 40. HOME HEALTH: Spoke with intake at [facility] who states pt only had RN services prior. She provided me with their fax number and states they will accept pt back for services. Provided her my contact info. Faxed signed HH orders and progress notes at this time, along with AVS. No [facility] needs. ? Medication Needs ? Financial ? Legal ? Other Disposition ? Expected Discharge Date Expected Discharge Date: 05/11/18 ? Transportation Does the patient need discharge transport arranged?: No Transportation Name, Phone and Availability #1: Daughter Fatoumata Arteaga will transport [phone] ? Next Level of Care (Acute Psych discharges only) ? Discharge Disposition Durable Medical Equipment No service has been selected for the patient. Destination No service has been selected for the patient. Home Care No service has been selected for the patient. Dialysis/Infusion No service has been selected for the patient. BONITA Wells RN Nurse Director Of Integrated Marketing Voalte Text Phone: [phone] Pager: [phone] D COMMUNICATIONS MANAGER * Case Mgmt DC Plan - Gissel Brown, EXECUTOR OF ESTATE - 05/09/2018 1:26 PM BRAND COMMUNICATIONS MANAGER Case Management Admission AssessmentNAME:Lucrecia Tomas :1955 AGE: 62 y.o. ADMISSION DATE: 05/08/2018 DAYS ADMITTED: LOS: 0 days Todays Date: 05/09/2018 Source of Information: Reviewed EMR, met with pt and family members in the room , discussed pt at [facility]. Per Chart, pt is a 62-year-old female with hypothyroidism, type 2 diabetes, hypertension, and morbid obesity who presented to [facility] after syncopal episode, in the setting of recent increase in foul drainage from abdominal wound. SW introduced self and role of case management. Pt had 5 family members in the room and consented to completing assessment with them present. Pt lives at home with her and has family support as indicated by the number of family present. She is the guardian for her 8 and 10 year old great grandchildren. Currently, the children's aunt is caring for them while she is hospitalized. She sees Dr. Schuster at the [facility] in [place] and fills her medications at the clinic. Pt reports she is independent in her ADLs. However, due to wound, has not been able to garden and be as busy as she would like to be. Pt utilizes a walker at home. Pt has been utilizing [facility] for Wound Care and would like to use them again on discharge. If recommended by PT/OT, she would like to utilize this service from [facility] as well. Pt is interested in completing a DPOA. Plan Plan: Case Management Assessment, Discharge Planning for Home Anticipated, Assist PRN with SW/NCM Services Anticipate discharge home with resumption of [facility] for wound care and possibly PT/OT. Pt's family will transport home. Patient Address/Phone [address] [address] (home) Emergency Contact Extended Emergency Contact Information Primary Emergency Contact: JEFFY TOMAS Mobile Relation: Spouse Secondary Emergency Contact: FATOUMATA ARTEAGA Mobile Relation: Daughter Healthcare Directive Healthcare Directive: No, patient does not have a healthcare directive Would patient like to fill out a (a new) Healthcare Directive?: No, patient declined Psych Advance Directive (Psych unit only): No, patient does not have a Psych Advance Directive Transportation Does the patient need discharge transport arranged?: No Transportation Name, Phone and Availability #1: Daughter Fatoumata Arteaga will transport [phone] Expected Discharge Date Expected Discharge Date: 05/11/18 Living Situation Prior to Admission ? Living Arrangements Type of Residence: Home, independent Living Arrangements: Spouse/significant other(Pt lives with her Jeffy) How many levels in the residence?: 2 Can patient live on one level if needed?: Yes Does residence have entry and/or side stairs?: Yes(5 with railing.) Assistance needed prior to admit or anticipated on discharge: Yes Who provides assistance or could if needed?: ([facility] agency assisting with wound care.) ? Level of Function Prior level of function: Independent ? Cognitive Abilities Cognitive Abilities: Alert and Oriented, Engages in problem solving and planning Financial Resources ? Coverage Primary Insurance: Medicare Replacement([employer]) Additional Coverage: None(Pt does not have insurance but gets medications filled at the [facility] in [place], [place]. Medications are affordable there.) ? Source of Income Source Of Income: SSDI ? Financial Assistance Needed? None reported. Psychosocial Needs ? Mental Health Mental Health History: In the past Mental Health Provider: [facility] in [facility] Mental Health Symptoms: (Pt reports history of depression. Pt stated she is doing well and not on psychiatric medications. ) ? Substance Use History Substance Use History Screen: No ? Other None reported. Current/Previous Services ? PCP No Pcp, Na, None, None ? Pharmacy No Pharmacies Listed ? Durable Medical Equipment Durable Medical Equipment at home: Roller Walker(Glucometer, blook pressure cuff , "grabber.") ? Home Health Receiving home health: Yes Agency name: [facility] Would patient use this agency again?: Yes ? Hemodialysis or Peritoneal Dialysis Undergoing hemodialysis or peritoneal dialysis: No ? Tube/Enteral Feeds Receive tube/enteral feeds: No ? Infusion Receive infusions: No ? Private Duty Private duty help used: No ? Home and Community Based Services Home and community based services: No ? Narinder White Narinder White: N/A ? Hospice Hospice: No ? Outpatient Therapy PT: No OT: No HAND COMPOSITOR: No ? Prison Facility/Care Home SNF: No NH: No ? Inpatient Rehab IPR: No ? Long-Term Acute Care Hospital LTACH: No ? Acute Hospital Stay Acute Hospital Stay: In the past Was patient's stay within the last 30 days?: No MERRITT EricksonConstance [id number] D COMMUNICATIONS MANAGER * Care Plan - Mariela Balderrama RN - 05/09/2018 1:17 PM BRAND COMMUNICATIONS MANAGER Problem: Discharge Planning Goal: Participation in plan of care Outcome: Goal Ongoing Patient will discharge when antibiotic regiment made. Problem: Infection, Risk of Goal: Absence of infection Outcome: Goal Ongoing Patient seen by wound team. Wound dressing changes now ordered. Patient receiving antibiotics. Problem: Falls, High Risk of Goal: Absence of falls-Adult Patient Outcome: Goal Ongoing High fall risk bundle in place. D COMMUNICATIONS MANAGER * Patient Education - Mariela Balderrama RN - 05/09/2018 8:50 AM BRAND COMMUNICATIONS MANAGER Medication Education Lucrecia Tomas accepted counseling and was interactive. she verbalized understanding. The following medications were discussed: lovenox Zosyn Synthroid Vancomycin Where indicated, the patient was provided with additional medication and/or disease-state information. All patient questions were answered and patient acknowledged understanding of the medications, side effects and other pertinent medication information. Follow up should occur as needed. Continue to address: indications Mariela Balderrama RN D COMMUNICATIONS MANAGER * Care Coordination-Inpatient - Rachel Garcia MD - 05/08/2018 8:59 PM BRAND COMMUNICATIONS MANAGER Brief Transfer Accept Note : Requesting facility: [facility] emergency room Reason for request for transfer; syncope and infected abdominal wound; surgeon there requesting higher level of care Brief Hx: Per Transfer RN-- Patient is a 62-year-old female who was brought to the emergency room after syncope with possible seizure activity. Patient has no history of seizures but was noted to have jerking of all extremities at the time of her syncope. Reportedly there was no loss of bowel or bladder and no postictal state. CT head done in the outside emergency room is reported as negative. The patient also has a history of hypothyroidism, type 2 diabetes, and depression. Patient reports being without her hypertension meds for the past 3 days. Patient has had multiple abdominal hernia repair surgeries done at outside hospital. Per report, she has had an infected surgical abdominal wound since December 2017 and has been treated for MRSA infection with Zyvox and Bactrim. There is mesh exposed and the wound is apparently foul-smelling. The surgeon at outside hospital requested a higher level of care. Acute care surgery was contacted regarding this admission. Dr. Schuster is requesting admission to internal medicine given patient's syncope and possible seizure. Dr. Schuster stated Acute Care Surgery is agreeable to provide consultative support for this patient. Patient is afebrile, blood pressure 96/54. After 2 L of IV fluid systolic blood pressure is now 111. Heart rate 72, O2 sat 97% on 2 L O2 White count 12.4, platelets 507, lactate within normal limits BUN 22, creatinine 0.95, sodium 138, potassium 4.6, LFTs normal Urinalysis consistent with UTI, per report Cultures taken of abdominal wound, urine and blood at outside hospital prior to transfer Request was made to send on CD disc-> CT head and all her available records regarding her abdominal surgeries and her abdominal wound treatment. All of the above history, vitals as well as labs are based on the verbal report obtained from the [facility] Transfer team. They will need to be verified on patient's arrival and subsequent assessment/plan formulated based on that D COMMUNICATIONS MANAGER documented in this encounter Plan of Treatment Order Schedule Name Priority Associated Diagnoses ONE TIME for 1 Occurrences starting 05/09/2018 until 05/09/2018, [address] HEAD EXTERNAL IMAGING Routine Diagnosis unknown ONE TIME for 1 Occurrences starting 05/09/2018 until 05/09/2018, 1 completed GENERAL RAD CHEST EXTERNAL IMAGING Routine Diagnosis unknown documented as of this encounter Procedures Comments Procedure Name Priority Date/Time Associated Diagnosis POC GLUCOSE 05/10/2018 8:31 AM BRAND COMMUNICATIONS MANAGER CBC AND DIFF Routine 05/10/2018 6:39 AM BRAND COMMUNICATIONS MANAGER COMPREHENSIVE METABOLIC Routine 05/10/2018 PANEL 6:39 AM BRAND COMMUNICATIONS MANAGER POC GLUCOSE 05/10/2018 5:38 AM BRAND COMMUNICATIONS MANAGER POC GLUCOSE 05/09/2018 10:53 PM BRAND COMMUNICATIONS MANAGER POC GLUCOSE 05/09/2018 6:23 PM BRAND COMMUNICATIONS MANAGER POC GLUCOSE 05/09/2018 3:40 PM BRAND COMMUNICATIONS MANAGER POC GLUCOSE 05/09/2018 12:07 PM BRAND COMMUNICATIONS MANAGER 2-D + DOPPLER Routine 05/09/2018 ECHOCARDIOGRAM 11:39 AM BRAND COMMUNICATIONS MANAGER POC GLUCOSE 05/09/2018 8:09 AM BRAND COMMUNICATIONS MANAGER UA REFLEX CULTURE LABEL Routine 05/09/2018 8:02 AM BRAND COMMUNICATIONS MANAGER URINALYSIS MICROSCOPIC Routine 05/09/2018 REFLEX TO CULTURE 8:02 AM BRAND COMMUNICATIONS MANAGER URINALYSIS DIPSTICK Routine 05/09/2018 REFLEX TO CULTURE 8:02 AM BRAND COMMUNICATIONS MANAGER CT ABD/PELV W CONTRAST MP 05/09/2018 5:56 AM BRAND COMMUNICATIONS MANAGER CULTURE-BLOOD Routine 05/09/2018 W/SENSITIVITY 1:17 AM BRAND COMMUNICATIONS MANAGER TSH WITH FREE T4 REFLEX Routine 05/09/2018 1:10 AM BRAND COMMUNICATIONS MANAGER CULTURE-BLOOD Routine 05/09/2018 W/SENSITIVITY 1:10 AM BRAND COMMUNICATIONS MANAGER PTT (APTT) Routine 05/09/2018 1:10 AM BRAND COMMUNICATIONS MANAGER PROTIME INR (PT) Routine 05/09/2018 1:10 AM BRAND COMMUNICATIONS MANAGER CBC AND DIFF Routine 05/09/2018 1:10 AM BRAND COMMUNICATIONS MANAGER C REACTIVE PROTEIN (CRP) Routine 05/09/2018 1:10 AM BRAND COMMUNICATIONS MANAGER BNP (B-TYPE NATRIURETIC Routine 05/09/2018 PEPTI) 1:10 AM BRAND COMMUNICATIONS MANAGER MAGNESIUM Routine 05/09/2018 1:10 AM BRAND COMMUNICATIONS MANAGER VANCOMYCIN TROUGH 05/09/2018 1:10 AM BRAND COMMUNICATIONS MANAGER COMPREHENSIVE METABOLIC Routine 05/09/2018 PANEL 1:10 AM BRAND COMMUNICATIONS MANAGER ECG 12-LEAD Routine 05/09/2018 12:44 AM BRAND COMMUNICATIONS MANAGER POC GLUCOSE 05/09/2018 12:25 AM BRAND COMMUNICATIONS MANAGER CT HEAD EXTERNAL IMAGING Routine 05/08/2018 Diagnosis unknown 3:35 PM BRAND COMMUNICATIONS MANAGER GENERAL RAD CHEST Routine 05/08/2018 Diagnosis unknown EXTERNAL IMAGING 2:35 PM BRAND COMMUNICATIONS MANAGER TELEMETRY STRIPS-SCAN 05/08/2018 12:00 AM BRAND COMMUNICATIONS MANAGER ECG-SCAN 05/08/2018 12:00 AM BRAND COMMUNICATIONS MANAGER documented in this encounter Results * POC GLUCOSE (05/10/2018 8:31 AM BRAND COMMUNICATIONS MANAGER) Glucose, POC 116 (H) 70 - 100 MG/DL [facility] Performing Organization Address City/State/Zipcode Phone Number [facility] [address] [place] [address] * COMPREHENSIVE METABOLIC PANEL (05/10/2018 6:39 AM BRAND COMMUNICATIONS MANAGER) Sodium 140 137 - 147 MMOL/L [facility] Potassium 3.9 3.5 - 5.1 MMOL/L [facility] Chloride 108 98 - 110 MMOL/L [facility] Glucose 130 (H) 70 - 100 MG/DL [facility] Blood Urea 14 7 - 25 MG/DL [facility] Nitrogen Creatinine 0.71 0.4 - 1.00 MG/DL [facility] Calcium 9.1 8.5 - 10.6 MG/DL [facility] Total Protein 7.5 6.0 - 8.0 G/DL [facility] Total Bilirubin 0.6 0.3 - 1.2 MG/DL [facility] Albumin 3.5 3.5 - 5.0 G/DL [facility] Alk Phosphatase 40 25 - 110 U/L [facility] AST (SGOT) 16 7 - 40 U/L [facility] CO2 24 21 - 30 MMOL/L [facility] ALT (SGPT) 12 7 - 56 U/L [facility] Anion Gap 8 3 - 12 [facility] eGFR Non >60 >60 mL/min [facility] Comment: Norwegian The eGFR is not validated for use in drug dosing adjustments.Continue to use estimated creatinine clearance per dosing reference text.Please contact the Clinical Pharmacist for questions. eGFR >60 >60 mL/min [facility] [place] Comment: The eGFR is not validated for use in drug dosing adjustments.Continue to use estimated creatinine clearance per dosing reference text.Please contact the Clinical Pharmacist for questions. Specimen Blood Performing Organization Address City/State/Zipcode Phone Number [facility] [place] [facility] [address] [place] [address] * CBC AND DIFF (05/10/2018 6:39 AM BRAND COMMUNICATIONS MANAGER) White Blood 6.2 4.5 - 11.0 K/UL [facility] Cells RBC 3.77 (L) 4.0 - 5.0 M/UL [facility] Hemoglobin 12.0 12.0 - 15.0 GM/DL [facility] Hematocrit 35.9 (L) 36 - 45 % [facility] MCV 95.3 80 - 100 FL [facility] MCH 31.9 26 - 34 PG [facility] MCHC 33.5 32.0 - 36.0 G/DL [facility] RDW 15.9 (H) 11 - 15 % [facility] Platelet Count 460 (H) 150 - 400 K/UL [facility] MPV 7.2 7 - 11 FL [facility] Neutrophils 40 (L) 41 - 77 % [facility] Lymphocytes 37 24 - 44 % [facility] Monocytes 13 (H) 4 - 12 % [facility] Eosinophils 9 (H) 0 - 5 % [facility] Basophils 1 0 - 2 % [facility] Absolute 2.50 1.8 - 7.0 K/UL [facility] Neutrophil Count Absolute Lymph 2.30 1.0 - 4.8 K/UL [facility] Count Absolute 0.80 0 - 0.80 K/UL [facility] Monocyte Count Absolute 0.60 (H) 0 - 0.45 K/UL [facility] Eosinophil Count Absolute 0.10 0 - 0.20 K/UL [facility] Basophil Count Specimen Blood Performing Organization Address City/State/Zipcode Phone Number [facility] [address] [place] [address] * POC GLUCOSE (05/10/2018 5:38 AM BRAND COMMUNICATIONS MANAGER) Glucose, POC 121 (H) 70 - 100 MG/DL [facility] Performing Organization Address City/[facility]/Zipcode Phone Number [facility]IN LAB [address] [place] [address] * POC GLUCOSE (05/09/2018 10:53 PM BRAND COMMUNICATIONS MANAGER) Glucose, POC 99 70 - 100 MG/DL [facility] Performing Organization Address City/[facility]/Zipcode Phone Number [facility] [address] [place] [address] * POC GLUCOSE (05/09/2018 6:23 PM BRAND COMMUNICATIONS MANAGER) Glucose, POC 76 70 - 100 MG/DL [facility] Performing Organization Address City/[facility]/Zipcode Phone Number MAIN LAB [address] [place] [address] * POC GLUCOSE (05/09/2018 3:40 PM BRAND COMMUNICATIONS MANAGER) Glucose, POC 117 (H) 70 - 100 MG/DL [facility] Performing Organization Address City/[facility]/Zipcode Phone Number [facility]IN LAB [address] [place] [address] * POC GLUCOSE (05/09/2018 12:07 PM BRAND COMMUNICATIONS MANAGER) Glucose, POC 108 (H) 70 - 100 MG/DL [facility] Performing Organization Address [facility] Phone Number [facility] [address] [place] [address] * 2-D + DOPPLER ECHOCARDIOGRAM (05/09/2018 11:39 AM BRAND COMMUNICATIONS MANAGER) IVS 0.93 0.6 - 0.9 cm OTHER [...] OUTSIDE Systolic TDI S' LAB Cardiology Siemens [id number] OTHER OUTSIDE Ultrasound LAB Machine ECHO EF [...] No ECHO for comparison. Performing Organization Address City/State/Zipcode Phone Number OTHER OUTSIDE LAB * POC GLUCOSE (05/09/2018 8:09 AM BRAND COMMUNICATIONS MANAGER) Glucose, POC 109 (H) 70 - 100 MG/DL [facility] Performing Organization Address City/[facility]/Zipcode Phone Number [facility] [address] [place] [address] * UA REFLEX CULTURE LABEL (05/09/2018 8:02 AM BRAND COMMUNICATIONS MANAGER) UA Reflex LAB LABEL [facility] Culture Specimen Urine Performing Organization Address City/[facility]/Zipcode Phone Number [facility] [address] [place] [address] * URINALYSIS MICROSCOPIC REFLEX TO CULTURE (05/09/2018 8:02 AM BRAND COMMUNICATIONS MANAGER) WBCs,UA 0-2 0 - 2 /HPF [facility] RBCs,UA NONE 0 - 3 /HPF [facility] Comment,UA Urine submitted for reflex [facility] culture if criteria are met:WBC>10, positive nitrite and/or >=1+ leukocyte esterase. If quantity is not sufficient, an addendum will follow. MucousUA TRACE [facility] Specimen Urine Performing Organization Address [facility] Phone Number [facility] [address] [place] [address] * URINALYSIS DIPSTICK REFLEX TO CULTURE (05/09/2018 8:02 AM BRAND COMMUNICATIONS MANAGER) Color,UA STRAW [facility] Turbidity,UA CLEAR CLEAR-CLEAR [facility] Specific 1.030 1.003 - 1.035 [facility] [place]-Urine pH,UA 5.0 5.0 - 8.0 [facility] Protein,UA NEG NEG-NEG [facility] Glucose,UA NEG NEG-NEG [facility] Ketones,UA NEG NEG-NEG [facility] Bilirubin,UA NEG NEG-NEG [facility] Blood,UA NEG NEG-NEG [facility] Urobilinogen,UA NORMAL NORM-NORMAL [facility] Nitrite,UA NEG NEG-NEG [facility] Leukocytes,UA NEG NEG-NEG [facility] Urine Ascorbic NEG NEG-NEG [facility] Acid, UA Specimen Urine Performing Organization Address [facility] Phone Number [facility] [address] [place] [address] * CT ABD/PELV W CONTRAST (05/09/2018 5:56 AM BRAND COMMUNICATIONS MANAGER) Impressions Performed At 1. Prior ventral abdominal hernia mesh repair. Dehiscence of the laparotomy [facility] incision overlying the hernia repair with a trace gas and probable fluid collection along the left ventral abdominal wall paralleling the mesh which may represent a tiny abscess. No drainable fluid collection identified. 2. Mild intraluminal gas within the urinary bladder, likely secondary to prior/recent instrumentation. Correlation with patient history. 3. Two fat-containing right upper quadrant abdominal wall hernias. 4. No bowel obstruction or ascites. Normal appendix. 5. Small hiatal hernia. By my electronic signature, I attest that I have personally reviewed the images for this examination and formulated the interpretations and opinions expressed in this report Finalized by Mustapha Crum M.D. on 05/09/2018 6:31 AM. Dictated by Aroldo Jolly M.D. on 05/09/2018 5:54 AM. Narrative Performed At CT ABDOMEN AND PELVIS [facility] Clinical Indication:Unknown, old.Abdominal pain. hx recurrent hernias with mesh, chronic draining abdominal wound. Technique:Multiple contiguous axial images were obtained through the abdomen and pelvis following the administration of IV contrast material. Portal venous phase of postcontrast imaging was obtained. Post processing coronal and sagittal reconstruction images were made from the axial images. IV contrast: Omnipaque-350 Bowel contrast:None Comparison: None FINDINGS: Lower Thorax: Mild bibasilar atelectasis and pleural probable scarring. Heart size upper limits of normal. Prominent right epiphrenic lymph nodes are noted. Small hiatal hernia. Liver and Biliary system: The liver is normal in size without focal hepatic lesion. Cholecystectomy. No biliary ductal dilatation. The portal veins are patent. Spleen: Splenectomy. A few soft tissue nodules are noted within the left upper quadrant, likely small splenules. Adrenal Glands and Kidneys: Unremarkable. Pancreas and Retroperitoneum: Unremarkable. Aorta and Major Vessels: The abdominal aorta is normal in caliber with trace calcified atherosclerosis. Bowel, Mesentery and Peritoneal space: The large and small bowel are normal in caliber. Occasional distal colonic diverticula. Normal appendix. No abdominal ascites or mesenteric lymphadenopathy. No pneumoperitoneum. Pelvis: The urinary bladder is mildly distended, with trace intraluminal gas. The uterus and adnexa are unremarkable. No pelvic ascites or lymphadenopathy. Abdominal wall and Osseous Structures: Prior ventral abdominal mesh hernia repair. There is dehiscence of the overlying ventral abdominal wall incision. Mild adjacent soft tissue stranding and thickening. Several loops of small bowel closely appose the mesh repair underlying the dehiscence. There is laxity or wide neck hernia of the lower ventral abdominal wall with protrusion of fat and bowel loops. Trace gas collection with probable fluid noted along the left ventral abdominal wall just superficial to the peritoneal lining and paralleling the mesh (such as series 3 image 47). No drainable fluid collection is identified at this site. Two fat-containing right upper quadrant abdominal wall hernias. Mild thoracolumbar spondylosis. No destructive osseous lesions. Old healed bilateral superior and inferior pubic rami fracture deformities. Procedure Note Interface, Radiant Results - 05/09/2018 6:35 AM BRAND COMMUNICATIONS MANAGER CT ABDOMEN AND PELVIS Clinical Indication: Unknown, old. Abdominal pain. hx recurrent hernias with mesh, chronic draining abdominal wound. Technique: Multiple contiguous axial images were obtained through the abdomen and pelvis following the administration of IV contrast material. Portal venous phase of postcontrast imaging was obtained. Post processing coronal and sagittal reconstruction images were made from the axial images. IV contrast: Omnipaque-350 Bowel contrast: None Comparison: None FINDINGS: Lower Thorax: Mild bibasilar atelectasis and pleural probable scarring. Heart size upper limits of normal. Prominent right epiphrenic lymph nodes are noted. Small hiatal hernia. Liver and Biliary system: The liver is normal in size without focal hepatic lesion. Cholecystectomy. No biliary ductal dilatation. The portal veins are patent. Spleen: Splenectomy. A few soft tissue nodules are noted within the left upper quadrant, likely small splenules. Adrenal Glands and Kidneys: Unremarkable. Pancreas and Retroperitoneum: Unremarkable. Aorta and Major Vessels: The abdominal aorta is normal in caliber with trace calcified atherosclerosis. Bowel, Mesentery and Peritoneal space: The large and small bowel are normal in caliber. Occasional distal colonic diverticula. Normal appendix. No abdominal ascites or mesenteric lymphadenopathy. No pneumoperitoneum. Pelvis: The urinary bladder is mildly distended, with trace intraluminal gas. The uterus and adnexa are unremarkable. No pelvic ascites or lymphadenopathy. Abdominal wall and Osseous Structures: Prior ventral abdominal mesh hernia repair. There is dehiscence of the overlying ventral abdominal wall incision. Mild adjacent soft tissue stranding and thickening. Several loops of small bowel closely appose the mesh repair underlying the dehiscence. There is laxity or wide neck hernia of the lower ventral abdominal wall with protrusion of fat and bowel loops. Trace gas collection with probable fluid noted along the left ventral abdominal wall just superficial to the peritoneal lining and paralleling the mesh (such as series 3 image 47). No drainable fluid collection is identified at this site. Two fat-containing right upper quadrant abdominal wall hernias. Mild thoracolumbar spondylosis. No destructive osseous lesions. Old healed bilateral superior and inferior pubic rami fracture deformities. IMPRESSION 1. Prior ventral abdominal hernia mesh repair. Dehiscence of the laparotomy incision overlying the hernia repair with a trace gas and probable fluid collection along the left ventral abdominal wall paralleling the mesh which may represent a tiny abscess. No drainable fluid collection identified. 2. Mild intraluminal gas within the urinary bladder, likely secondary to prior/ recent instrumentation. Correlation with patient history. 3. Two fat-containing right upper quadrant abdominal wall hernias. 4. No bowel obstruction or ascites. Normal appendix. 5. Small hiatal hernia. By my electronic signature, I attest that I have personally reviewed the images for this examination and formulated the interpretations and opinions expressed in this report Finalized by Mustapha Crum M.D. on 05/09/2018 6:31 AM. Dictated by Aroldo Jolly M.D. on 05/09/2018 5:54 AM. Performing Organization Address City/[facility] Phone Number RAD RESULTS * CULTURE-BLOOD W/SENSITIVITY (05/09/2018 1:17 AM BRAND COMMUNICATIONS MANAGER) Pathologist [facility] Battery Name BLOOD CULTURE MAIN LAB Specimen BLOOD MAIN LAB Description LEFT ANTECUBITAL Special NONE [facility] MAIN [facility] Requests Culture NO GROWTH 5 DAYS MAIN LAB Report Status FINAL MAIN LAB 05/15/2018 Specimen Blood Performing Organization Address [facility] Phone Number MAIN LAB [address] [place] [address] * VANCOMYCIN TROUGH (05/09/2018 1:10 AM BRAND COMMUNICATIONS MANAGER) Pathologist [facility] Vancomycin 7.5 (L) 10.0 - 20.0 MCG/ML MAIN LAB Trough Performing Organization Address [facility] Phone Number MAIN LAB [address] [place] [address] * COMPREHENSIVE METABOLIC PANEL (05/09/2018 1:10 AM BRAND COMMUNICATIONS MANAGER) Sodium 136 (L) 137 - 147 MMOL/L [facility] MAIN [facility] Potassium 3.7 3.5 - 5.1 MMOL/L [facility] Chloride 107 98 - 110 MMOL/L [facility] Glucose 132 (H) 70 - 100 MG/DL [facility] Blood Urea 17 7 - 25 MG/DL [facility] Nitrogen Creatinine 0.74 0.4 - 1.00 MG/DL [facility] Calcium 9.1 8.5 - 10.6 MG/DL [facility] Total Protein 7.7 6.0 - 8.0 G/DL [facility] Total Bilirubin 0.8 0.3 - 1.2 MG/DL [facility] Albumin 3.5 3.5 - 5.0 G/DL [facility] Alk Phosphatase 45 25 - 110 U/L [facility] AST (SGOT) 18 7 - 40 U/L [facility] CO2 23 21 - 30 MMOL/L [facility] ALT (SGPT) 13 7 - 56 U/L [facility] Anion Gap 6 3 - 12 [facility] eGFR Non >60 >60 mL/min [facility] Comment: Norwegian The eGFR is not validated for use in drug dosing adjustments.Continue to use estimated creatinine clearance per dosing reference text.Please contact the Clinical Pharmacist for questions. eGFR >60 >60 mL/min [facility] Norwegian Comment: The eGFR is not validated for use in drug dosing adjustments.Continue to use estimated creatinine clearance per dosing reference text.Please contact the Clinical Pharmacist for questions. Specimen Blood Performing Organization Address City/State/Zipcode Phone Number [facility] [address] [place] [address] * CBC AND DIFF (05/09/2018 1:10 AM BRAND COMMUNICATIONS MANAGER) White Blood 9.1 4.5 - 11.0 K/UL [facility] Cells RBC 3.85 (L) 4.0 - 5.0 M/UL [facility] Hemoglobin 11.9 (L) 12.0 - 15.0 GM/DL [facility] Hematocrit 36.6 36 - 45 % [facility] MCV 95.0 80 - 100 FL [facility] MCH 31.0 26 - 34 PG [facility] MCHC 32.6 32.0 - 36.0 G/DL [facility] RDW 16.6 (H) 11 - 15 % [facility] Platelet Count 455 (H) 150 - 400 K/UL [facility] MPV 7.6 7 - 11 FL [facility] Neutrophils 43 41 - 77 % [facility] Lymphocytes 40 24 - 44 % [facility] Monocytes 10 4 - 12 % [facility] Eosinophils 6 (H) 0 - 5 % [facility] Basophils 1 0 - 2 % [facility] Absolute 4.00 1.8 - 7.0 K/UL [facility] Neutrophil Count Absolute Lymph 3.60 1.0 - 4.8 K/UL [facility] Count Absolute 0.90 (H) 0 - 0.80 K/UL [facility] Monocyte Count Absolute 0.50 (H) 0 - 0.45 K/UL [facility] MA[facility] Eosinophil Count Absolute 0.10 0 - 0.20 K/UL MAIN LAB Basophil Count Specimen Blood Performing Organization Address [facility]/Zipcode Phone Number MAIN LAB [address] [place] [address] * BNP (B-TYPE NATRIURETIC PEPTI) (05/09/2018 1:10 AM BRAND COMMUNICATIONS MANAGER) B Type 20.0 0 - 100 PG/ML MAIN LAB Natriuretic Peptide Specimen Blood Performing Organization Address [facility] Phone Number MAIN LAB [address] [place] [address] * C REACTIVE PROTEIN (CRP) (05/09/2018 1:10 AM BRAND COMMUNICATIONS MANAGER) C-Reactive 0.34 <1.0 MG/DL MAIN LAB Protein Specimen Blood Performing Organization Address [facility] Phone Number MAIN LAB [address] [place] [address] * CULTURE-BLOOD W/SENSITIVITY (05/09/2018 1:10 AM BRAND COMMUNICATIONS MANAGER) Battery Name BLOOD CULTURE MAIN LAB Specimen BLOOD MAIN LAB Description RIGHT ANTECUBITAL Special NONE MAIN LAB Requests Culture NO GROWTH 5 DAYS MAIN LAB Report Status FINAL MAIN LAB 05/15/2018 Specimen Blood Performing Organization Address [facility] Phone Number MAIN LAB [address] [place] [address] * MAGNESIUM (05/09/2018 1:10 AM BRAND COMMUNICATIONS MANAGER) Magnesium 1.8 1.6 - 2.6 mg/dL MAIN LAB Specimen Blood Performing Organization Address [facility] Phone Number MAIN LAB [address] [place] [address] * TSH WITH FREE T4 REFLEX (05/09/2018 1:10 AM BRAND COMMUNICATIONS MANAGER) TSH 4.860 0.35 - 5.00 MCU/ML MAIN LAB Specimen Blood Performing Organization Address [facility] Phone Number MAIN LAB [address] [place] [phone] * PTT (APTT) (05/09/2018 1:10 AM BRAND COMMUNICATIONS MANAGER) APTT 24.3Comment: NOTE NEW 24.0 - 36.5 SEC MAIN LAB REFERENCE RANGES Specimen Blood Performing Organization Address City/[facility]/Zipcode Phone Number MAIN LAB [address] [place] [address] * PROTIME INR (PT) (05/09/2018 1:10 AM BRAND COMMUNICATIONS MANAGER) INR 1.1 0.8 - 1.2 MAIN LAB Specimen Blood Performing Organization Address [facility] Phone Number MAIN LAB [address] [place] [address] * POC GLUCOSE (05/09/2018 12:25 AM BRAND COMMUNICATIONS MANAGER) Glucose, POC 102 (H) 70 - 100 MG/DL MAIN LAB Performing Organization Address [facility] Phone Number MAIN LAB [address] [place] [address] * CT HEAD EXTERNAL IMAGING (05/08/2018 3:35 PM BRAND COMMUNICATIONS MANAGER) Narrative Performed At This order has been auto finalized and does not contain a result. * GENERAL RAD CHEST EXTERNAL IMAGING (05/08/2018 2:35 PM BRAND COMMUNICATIONS MANAGER) Narrative Performed At This order has been auto finalized and does not contain a result. * TELEMETRY STRIPS-SCAN (05/08/2018 12:00 AM BRAND COMMUNICATIONS MANAGER) Narrative Performed At Ordered by an unspecified provider. * ECG-SCAN (05/08/2018 12:00 AM BRAND COMMUNICATIONS MANAGER) Narrative Performed At Ordered by an unspecified provider. documented in this encounter Visit Diagnoses Diagnosis Diagnosis unknown Other unknown and unspecified cause of morbidity or mortality Acquired hypothyroidism Unspecified hypothyroidism Morbid obesity (HCC) Morbid obesity Essential hypertension Unspecified essential hypertension Syncope, unspecified syncope type Chronic wound infection of abdomen, initial encounter Hypothyroidism Unspecified hypothyroidism Hypertension Unspecified essential hypertension documented in this encounter Admitting Diagnoses Diagnosis Syncope Syncope and collapse documented in this encounter Administered Medications Action Date Dose Rate Site Medication Order MAR Action 05/10/2018 9:22 AM BRAND COMMUNICATIONS MANAGER 40 mg Ankle, Right enoxaparin (LOVENOX) syringe 40 mg Given 40 mg, Subcutaneous, TWICE DAILY, First dose on Yael 05/09/18 at 0900, Until Discontinued, For patients undergoing surgery: Consult physician in advance -- enoxaparin is an anticoagulant and may need to be held for 12hr prior to surgery or invasive procedures. NOTE: This is a HIGH ALERT Medication., 40 mg Arm, Left Given 05/09/2018 9:42 PM BRAND COMMUNICATIONS MANAGER 40 mg Abdominal Tissue Given 05/09/2018 8:01 AM BRAND COMMUNICATIONS MANAGER 05/09/2018 6:00 AM BRAND COMMUNICATIONS MANAGER 100 mL iohexol (OMNIPAQUE-350) 350 mg/mL Given injection 100 mL 100 mL, Intravenous, ONCE, 1 dose, Yael 05/09/18 at 0600, NOTE: This is a HIGH ALERT Medication., 05/09/2018 1:38 AM BRAND COMMUNICATIONS MANAGER 1,000 mL 125 mL/hr lactated ringers infusion Given - New 1,000 mL, 1,000 mL, Intravenous, at 125 Bag mL/hr, ONCE, 1 dose, Yael 05/09/18 at 0045 05/10/2018 6:34 AM BRAND COMMUNICATIONS MANAGER 200 mcg levothyroxine (SYNTHROID) tablet 200 mcg Given 200 mcg, Oral, DAILY, First dose on Yael 05/09/18 at 0700, Until Discontinued, Give 1 hour before a meal. If patient is receiving tube feedings, hold tube feed 1hr before and 1hr after dose., 200 mcg Given 05/09/2018 7:55 AM BRAND COMMUNICATIONS MANAGER 05/09/2018 11:40 AM BRAND COMMUNICATIONS MANAGER 2 Diluted mL perflutren lipid microspheres (DEFINITY) Given injection 1-20 Diluted mL 1-20 Diluted mL, Intravenous, ONCE, 1 dose, Yael 05/09/18 at 1145, NOTE: This is a HIGH ALERT Medication., MAC Procedure Area Only - Medications 05/09/2018 12:48 PM BRAND COMMUNICATIONS MANAGER 3.375 g 200 mL/hr piperacillin/tazobactam (ZOSYN) 3.375 g Given in sodium chloride 0.9% (NS) 100 mL IVPB (MB+) 3.375 g, Intravenous, at 200 mL/hr, EVERY 6 HOURS, First dose on Yael 05/09/18 at 0130, Until Discontinued 3.375 g 200 mL/hr Given 05/09/2018 7:55 AM BRAND COMMUNICATIONS MANAGER 3.375 g 200 mL/hr Given 05/09/2018 1:38 AM BRAND COMMUNICATIONS MANAGER 05/09/2018 9:43 PM BRAND COMMUNICATIONS MANAGER 20 mg pravastatin (PRAVACHOL) tablet 20 mg Given 20 mg, Oral, AT BEDTIME DAILY, First dose on Yael 05/09/18 at 0100, Until Discontinued 20 mg Given 05/09/2018 1:38 AM BRAND COMMUNICATIONS MANAGER 05/09/2018 6:00 AM BRAND COMMUNICATIONS MANAGER 50 mL sodium chloride PF 0.9% injection 50 mL Given 50 mL, Intravenous, ONCE, 1 dose, Yael 05/09/18 at 0600, DO NOT SEND this medication unless it is requested. This med is usually available in floor stock., Intra-procedure (IR) 05/10/2018 9:23 AM BRAND COMMUNICATIONS MANAGER sodium hypochlorite (DAKIN'S 1/2 Given STRENGTH) 0.25 % topical solution Irrigation, TWICE DAILY, First dose on Yael 05/09/18 at 2100, Until Discontinued Given 05/09/2018 9:47 PM BRAND COMMUNICATIONS MANAGER 05/09/2018 3:19 AM BRAND COMMUNICATIONS MANAGER 1,750 mg 357 mL/hr vancomycin (VANCOCIN) 1,750 mg in Given - New dextrose 5% (D5W) IVPB Bag 1,750 mg, Intravenous, 535 mL, Administer over 90 Minutes, EVERY 12 HOURS, First dose on Yael 05/09/18 at 0300, Until Discontinued, Note Pharmacokinetic Monitoring: Please record infusion start time (Action=Given) and stop time (Action=Completed) of dose when blood levels are drawn., documented in this encounter
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
--- OUTSIDE RECORDS SUMMARY | 2018-07-01 17:14 | XMS REPORT | Encounter Summary ---
Author Author [facility] Organization [facility] Address Unknown Phone Unavailable Care Team Providers Care Billing Supervisor Name Role Phone No Pcp, Na PCP Unavailable Encounter Details Care Team Description Date Type Department 05/08/2018 [facility] [address] [id number] Social History Date Tobacco Use Types Packs/Day Years Used Never Assessed Sex Assigned at Date Recorded Not on file Industry Job Start Date Occupation Not on file Not on file Not on file Travel End Travel History Travel Start No recent travel history available. documented as of this encounter Medications at Time of Discharge [...] twice daily. 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
--- OUTSIDE RECORDS SUMMARY | 2018-07-01 17:14 | XMS REPORT | Encounter Summary ---
Author Author [facility] Organization [facility] Address Unknown Phone Unavailable Care Team Providers Care Credit Card Associate Name Role Phone No Pcp, Na PCP Unavailable Encounter Details Care Team Description Date Type Department 05/08/2018 [facility] [address] [address] Social History Date Tobacco Use Types Packs/Day [...] Comments Procedure Name Priority Date/Time Associated Diagnosis GENERAL RAD CHEST Routine 05/08/2018 Diagnosis unknown EXTERNAL IMAGING 2:35 PM FISH PROCESSING SUPERVISOR documented in this encounter Visit Diagnoses Not on filedocumented in this encounter
--- OUTSIDE RECORDS SUMMARY | 2018-07-01 17:14 | XMS REPORT ---
Author Author SONIA ERIC [facility] Address [address] [place] [address] Care Team Providers Care Returned Case Inspector Name Role Phone SONIAJEWELL FATIMAHANY Unavailable PROBLEMS Type Condition ICD9-CM Code [id number] Code Onset Dates Condition Status SNOMED Code Problem Type 2 diabetes mellitus with diabetic polyneuropathy, without long- term current use of insulin E11.42 Active 91663611 Problem Incisional hernia, without obstruction or gangrene K43.2 Active 176484418 Problem Acquired asplenia Z90.81 Active 280987365 Problem Recurrent major depressive disorder, in full remission F33.42 Active 18795180 Problem Locking of left knee M23.92 Active 11536420038854621 Problem BMI 50.0-59.9, adult Z68.43 Active 952254354 Problem Elevated platelet count D47.3 Active 9236097 Problem Primary osteoarthritis of both knees M17.0 Active 702244083 Problem Other chronic pain G89.29 Active 09092239 Problem Mixed hyperlipidemia E78.2 Active 460964070 Problem Essential hypertension I10 Active 12494329 Problem Primary osteoarthritis involving multiple joints M15.0 Active 840417141 Problem Type 2 diabetes mellitus with hyperglycemia E11.65 Active 20039654 Problem Chronic hepatitis C without hepatic coma B18.2 Active 143319758 Problem Hypothyroidism, unspecified E03.9 Active 385538396 Problem Sensorineural hearing loss of both ears H90.3 Active 082669801 ALLERGIES No Information ENCOUNTERS Encounter Location Date Diagnosis [facility] [id number], [place] [address] Mar, Hypothyroidism, unspecified E03.9 [facility] [id number], [place] [address] Feb, [facility] [id number], [place] [address] Feb, [facility] [id number], [place] [address] Feb, BMI 45.0-49.9, adult Z68.42 and Unspecified open wound of abdominal wall, unspecified quadrant without penetration into peritoneal cavity , initial encounter S31.109A [facility] [address], [place] [address] Feb, [facility] [id number] [place] [address]- 1886 Feb, [facility] [address] [place] [address] 20812- 8312 Jan, Medicare annual wellness visit, initial Z00.00 [...] remission F33.42 and Encounter for immunization Z23 [facility] [address], [place] [address] Jan, [address] [place] [address]68[address]- [address]79 Jan, Hypothyroidism, unspecified E03.9 [place] [id number] [place] [address] 34666- 0072 Sep, [address] [place] [place] [address] 37709- 0314 Sep, Chronic hepatitis C without hepatic coma B18.2 and Hypothyroidism, unspecified E03.9 [place] [place] [address], [place] [address] Sep, Essential hypertension I10 [address] [place] [address] 19911- 8370 Jun, Hypothyroidism, unspecified E03.9 [place] [id number] [place] [address] 18296- 8937 Jun, Chronic hepatitis C without hepatic coma B18.2 and Hypothyroidism, unspecified E03.9 [place] [id number] [place] [address] 02018- 0104 Jun, [place] [id number] [place] [address] 11786- 3026 Jun, BMI 45.0-49.9, adult Z68.42 ; Essential hypertension I10 ; Major depressive disorder, recurrent, unspecified F33.9 ; Elevated platelet count D47.3 ; Primary osteoarthritis involving multiple joints M15.0 ; Locking of left knee M23.92 ; Right knee buckling M25.361 and Primary osteoarthritis of both knees M17.0 [place] [place] [id number] [place] [address] 45653- 2504 Apr, Hypothyroidism, unspecified E03.9 [place] [address] [place] [address] 57673- 7187 Apr, Type 2 diabetes mellitus with hyperglycemia [...] immunization Z23 and BMI 50.0-59.9, adult Z68.43 [address] [address], [place] [address] Nov, Elevated platelet count D47.3 [place] [address] [place] [address] 77260- 6739 Oct, Mixed hyperlipidemia E78.2 ; Essential hypertension I10 ; Major depressive disorder, recurrent, unspecified F33.9 and Type 2 diabetes mellitus with diabetic polyneuropathy, without long-term current use of insulin E11.42 [place] [id number] [place] [address] 84561- 3074 Oct, Elevated platelet count D47.3 [place] [id number] [place] [address] 74723 2541 Oct, Chronic hepatitis C without hepatic coma B18.2 [place] [id number] [place] [address] 68774- 7776 Sep, [place] [id number] [place] [address] 83315- 2889 Sep, Mixed hyperlipidemia E78.2 [place] [id number] [place] [address] 98592- 7456 Mar, [place] [id number] [place] [address] 56719- 3654 Mar, Incisional hernia, without obstruction or gangrene K43.2 [address] [place] [id number] [place] [address] 78437- 0360 Feb, Chronic hepatitis C without hepatic coma B18.2 [place] [id number] [place] [address] 31129- 5521 Jan, [place] [id number] [place] [address] 81344- 4191 Jan, [place] [id number] [place] [address] 22736- 8949 Jan, Type 2 diabetes mellitus with diabetic polyneuropathy, without long-term current use of insulin E11.42 ; Hypothyroidism, unspecified E03.9 ; Mixed hyperlipidemia E78.2 ; Essential hypertension I10 ; Major depressive disorder, recurrent, unspecified F33.9 ; Acquired asplenia Z90.81 ; Encounter for immunization Z23 and Chronic hepatitis C without hepatic coma B18.2 [facility] [id number] [place] [address] 32300- 3379 Jan, Type 2 diabetes mellitus with hyperglycemia E11.65 ; Mixed hyperlipidemia E78.2 and Hypothyroidism, unspecified E03.9 [facility] [id number] [place] [address] 33965- 0894 Dec, Chronic hepatitis C without hepatic coma B18.2 [facility] [id number] [place] [address] 52523- 3064 Nov, [facility] [id number] [place] [address] 01496- 1821 Nov, [facility] [id number] [place] [address] 48584- 9894 Oct, [facility] [id number] [place] [address] 32955- 4097 Oct, [facility] [id number] [place] [address] 22882- 9593 Sep, [facility] [id number] [place] [address] 34830- 9496 Sep, Hypothyroidism, unspecified E03.9 [facility] [address], [place] [address] 37[address] Sep, Chronic hepatitis C without hepatic coma B18.2 [facility] [id number] [place] [address] 01253- 5220 Sep, Type 2 diabetes mellitus with hyperglycemia E11.65 ; Chronic hepatitis C without hepatic coma B18.2 ; Hypothyroidism, unspecified E03.9 ; Major depressive disorder, recurrent, unspecified F33.9 ; Essential hypertension I10 ; Mixed hyperlipidemia E78.2 and Type 2 diabetes mellitus with diabetic polyneuropathy, without long-term current use of insulin E11.42 [facility] [id number] [place] [address] 03066- 7232 August, [place] [id number] [place] [address] 10406- 0562 August, Breast nodule N63 [place] [id number] [place] [address] 61564- 7529 Feb, [place] [address] [address]- [address] Feb, Breast nodule N63 [place] [address] [address]- 2474 Jan, Essential hypertension I10 ; Chronic hepatitis C without hepatic coma B18.2 ; Major depressive disorder, recurrent, unspecified F33.9 ; Type 2 diabetes mellitus with hyperglycemia E11.65 and Tinnitus of both ears H93.[address] [address]- [address] Jan, Hypothyroidism, unspecified E03.[address] 6[address]- 0167 Jan, Hyperlipidemia LDL goal <100 272.4 ; Unspecified hypothyroidism 244.9 and Acute renal insufficiency 593.[address] 7[address]24- 5396 Jan, Breast screening Z12.[address] [address]14- 4852 Oct, Breast cancer screening V76.[address] 61285- 3385 Sep, Chronic hepatitis C without mention of hepatic coma 070.54 and Acute renal insufficiency 593.[address] 6[address]- 1688 Sep, Routine gynecological examination V72.31 ; Pap test, as part of routine gynecological examination V76.2 ; Breast cancer screening V76.10 ; Postmenopausal V49.81 and Vulvar itching [address] [address] Sep, Chronic hepatitis C without mention of hepatic coma 070.54 ; Acute renal insufficiency 593.9 and Hyperlipidemia LDL goal <100 272.4 [facility] [id number] [place] [address] 76252- 8219 Sep, Chronic hepatitis C without mention of hepatic coma 070.54 ; Unspecified hypothyroidism 244.9 ; Essential hypertension, benign 401.1 ; Osteoarthritis 715.90 ; Diabetes mellitus without mention of complication, type II or unspecified type, uncontrolled 250.02 and Colon cancer screening V76.51 [facility] [id number] [place] [address] 38787- 3848 Sep, [facility] [id number] [place] [address] 55041- 0603 Jul, [facility] [id number] [place] [address] 17304- 9684 Jul, [facility] [id number] [place] [address] 49995- 0904 Dec, [facility] [id number] [place] [address] 91815- 7130 Dec, [facility] [id number] [place] [address] 04719- 5526 Oct, [facility] [address], [place] [address]- 6056 Oct, [facility] [address] [place] [address]- 8798 Sep, [facility] [id number] [place] [address] 13611- 3859 Sep, [facility] [id number] [place] [address] 33591796- 5941 August, [facility] [address] [address] August, [facility] [address], [place] [address]- 7159 August, [facility] [address], [place] [address]- 0947 August, [facility] [address], [place] [address]- 0884 August, [facility] [address], [place] [address]- 6556 August, [facility] [address], [place] [address]- 1119 Mar, [facility] [id number] [place] [address] 25518- 8019 Mar, [facility] [id number] [place] [address] 28934- 3572 Mar, [facility] [id number] [place] [address] 37082- 0287 Mar, [facility] [address], [place] [address]- 5115 Feb, [facility] [address], [place] [address]- 9170 Feb, [facility] [address], [place] [address]- 4455 Feb, [facility] [address], [place] [address]- 5402 Feb, IMMUNIZATIONS No Known Immunizations SOCIAL HISTORY Never Assessed REASON FOR VISIT Lab (walk-in) PLAN OF CARE Activity Details Pending Test TSH VITAL SIGNS MEDICATIONS Unknown Medications RESULTS No Results PROCEDURES Procedure Date Ordered Result Body Site LAB NOT BILLED BY [facility] Mar 19, 2018 INSTRUCTIONS MEDICATIONS ADMINISTERED No Known Medications MEDICAL [...]
--- OUTSIDE RECORDS SUMMARY | 2018-07-01 17:15 | XMS REPORT ---
Author Author GERI ALDRICH [facility] [place] [facility] Address [address] [place] [address] Care Team Providers Care Oil Well Logger Name Role Phone VALDEMAR GERI Unavailable PROBLEMS Type Condition ICD9-CM Code [id number] Code Onset Dates Condition Status SNOMED Code Problem Type 2 diabetes mellitus with diabetic polyneuropathy, without long- term current use of insulin E11.42 Active 87822406 Problem Incisional hernia, without obstruction or gangrene K43.2 Active 932614394 Problem Acquired asplenia Z90.81 Active 307424193 Problem Recurrent major depressive disorder, in full remission F33.42 Active 39473580 Problem Locking of left knee M23.92 Active [id number] Problem BMI 50.0-59.9, adult Z68.43 Active 357176539 Problem Elevated platelet count D47.3 Active 9555835 Problem Primary osteoarthritis of both knees M17.0 Active 134016203 Problem Other chronic pain G89.29 Active 73569024 Problem Mixed hyperlipidemia E78.2 Active 349595582 Problem Essential hypertension I10 Active 68523390 Problem Primary osteoarthritis involving multiple joints M15.0 Active 019635176 Problem Type 2 diabetes mellitus with hyperglycemia E11.65 Active 87349340 Problem Chronic hepatitis C without hepatic coma B18.2 Active 622732466 Problem Hypothyroidism, unspecified E03.9 Active 823502674 Problem Sensorineural hearing loss of both ears H90.3 Active 246547119 ALLERGIES No Known Allergies ENCOUNTERS Encounter Location Date Diagnosis [facility] [address] [facility] [id number] [address] Feb, [facility] [address] [facility] [facility] [id number] [address] Feb, BMI 45.0-49.9, adult Z68.42 and Unspecified open wound of abdominal wall, unspecified quadrant without penetration into peritoneal cavity , initial encounter S31.109A [facility] [address] [address] Feb, [facility] [id number] [place] [address]261- [address] Feb, [facility] [id number] [place] [address]43- 2441 Jan, Medicare annual wellness visit, initial Z00.00 [...] remission F33.42 and Encounter for immunization Z23 [facility] [id number] [place] [address]- 100[address] Jan, [facility] [id number] [place] [address] 44137- 0410 Jan, Hypothyroidism, unspecified E03.9 [facility] [id number] [place] [address] 63413- 9321 Sep, [facility] [id number] [place] [address] 48517- 1254 Sep, Chronic hepatitis C without hepatic coma B18.2 and Hypothyroidism, unspecified E03.9 [facility] [id number] [place] [address] 15974- 6705 Sep, Essential hypertension I10 [facility] [id number] [place] [address] 37904- 2699 Jun, Hypothyroidism, unspecified E03.9 [facility] [id number] [address] Jun, Chronic hepatitis C without hepatic coma B18.2 and Hypothyroidism, unspecified E03.9 [facility] [address] [address] Jun, [facility] [id number] [place] [address] 93221- 8290 Jun, BMI 45.0-49.9, adult Z68.42 ; Essential hypertension I10 ; Major depressive disorder, recurrent, unspecified F33.9 ; Elevated platelet count D47.3 ; Primary osteoarthritis involving multiple joints M15.0 ; Locking of left knee M23.92 ; Right knee buckling M25.361 and Primary osteoarthritis of both knees M17.0 [facility] [id number] [place] [address] 86758- 6523 Apr, Hypothyroidism, unspecified E03.9 [facility] [id number] [place] [address] 59150- 0105 Apr, Type 2 diabetes mellitus with hyperglycemia [...] immunization Z23 and BMI 50.0-59.9, adult Z68.43 [facility] [address] [address] Nov, Elevated platelet count D47.3 [facility] [id number] [place] [address] 26247- 1400 Oct, Mixed hyperlipidemia E78.2 ; Essential hypertension I10 ; Major depressive disorder, recurrent, unspecified F33.9 and Type 2 diabetes mellitus with diabetic polyneuropathy, without long-term current use of insulin E11.42 [facility] [id number] [place] [address] 55616- 0413 Oct, Elevated platelet count D47.3 [facility] [id number] [place] [address] 32119- 7376 Oct, Chronic hepatitis C without hepatic coma B18.2 [facility] [address] [address] Sep, [facility] [address] [address]- 9949 Sep, Mixed hyperlipidemia E78.2 [facility] [address] 64798- 3210 Mar, [facility] [address] [address]- [address]13 Mar, Incisional hernia, without obstruction or gangrene K43.2 [facility] [id number] [place] [address] 95063- 6270 Feb, Chronic hepatitis C without hepatic coma B18.2 [facility] [id number] [place] [address] 48201- 5931 Jan, [facility] [id number] [place] [address] 72327- 9450 Jan, [facility] [id number] [place] [address] 27651- 3930 Jan, Type 2 diabetes mellitus with diabetic polyneuropathy, without long-term current use of insulin E11.42 ; Hypothyroidism, unspecified E03.9 ; Mixed hyperlipidemia E78.2 ; Essential hypertension I10 ; Major depressive disorder, recurrent, unspecified F33.9 ; Acquired asplenia Z90.81 ; Encounter for immunization Z23 and Chronic hepatitis C without hepatic coma B18.2 [facility] [id number] [place] [address] 87963- 1058 Jan, Type 2 diabetes mellitus with hyperglycemia E11.65 ; Mixed hyperlipidemia E78.2 and Hypothyroidism, unspecified E03.9 [facility] [address] [address] Dec, Chronic hepatitis C without hepatic coma B18.2 [facility] [address] [address] Nov, [facility] [id number] [place] [address] 99546- 8448 Nov, [facility] [id number] [place] [address] 71566- 4886 Oct, [facility] [id number] [place] [address] 40565- 5833 Oct, [facility] [id number] [place] [address] 90761- 2407 Sep, [facility] [id number] [place] [address] 25332- 2863 Sep, Hypothyroidism, unspecified E03.9 [facility] [address] [address] Sep, Chronic hepatitis C without hepatic coma B18.2 [facility] [address] [address] Sep, Type 2 diabetes mellitus with hyperglycemia E11.65 ; Chronic hepatitis C without hepatic coma B18.2 ; Hypothyroidism, unspecified E03.9 ; Major depressive disorder, recurrent, unspecified F33.9 ; Essential hypertension I10 ; Mixed hyperlipidemia E78.2 and Type 2 diabetes mellitus with diabetic polyneuropathy, without long-term current use of insulin E11.42 [facility] [address] [address] August, [facility] [address] [address] August, Breast nodule N63 [facility] [id number] [place] [address] 41626- 6921 Feb, [place] [id number] [place] [address] 82872- 4324 Feb, Breast nodule N63 [address] [address]- [address] Jan, Essential hypertension I10 ; Chronic hepatitis C without hepatic coma B18.2 ; Major depressive disorder, recurrent, unspecified F33.9 ; Type 2 diabetes mellitus with hyperglycemia E11.65 and Tinnitus of both ears H93.[address] [address]- [address] Jan, Hypothyroidism, unspecified E03.[address] [address]842- 6[address] Jan, Hyperlipidemia LDL goal <100 272.4 ; Unspecified hypothyroidism 244.9 and Acute renal insufficiency 593.[address] [address]- [address] Jan, Breast screening Z12.[address] [address]- [address]63 Oct, Breast cancer screening V76.[address] [address]42- 9476 Sep, Chronic hepatitis C without mention of hepatic coma 070.54 and Acute renal insufficiency 593.[address] 83[address]- 3035 Sep, Routine gynecological examination V72.31 ; Pap test, as part of routine gynecological examination V76.2 ; Breast cancer screening V76.10 ; Postmenopausal V49.81 and Vulvar itching 698.[address] [address]40- [address]12 Sep, Chronic hepatitis C without mention of hepatic coma 070.54 ; Acute renal insufficiency 593.9 and Hyperlipidemia LDL goal <[address] 401816- 7493 Sep, Chronic hepatitis C without mention of hepatic coma 070.54 ; Unspecified hypothyroidism 244.9 ; Essential hypertension, benign 401.1 ; Osteoarthritis 715.90 ; Diabetes mellitus without mention of complication, type II or unspecified type, uncontrolled 250.02 and Colon cancer screening V76.51 [facility] [address], [place] [address] Sep, [facility] [id number] [address] Jul, [facility] [address] Jul, [facility] [id number] [place] [address] 519488- 2283 Dec, [facility] [id number] [address] Dec, [facility] [address] [address] 750[address] Oct, [facility] [address] Oct, [facility] [address] [address] Sep, [facility] [address] Sep, [facility] [address] [address] August, [facility] [address] August, [facility] [id number] August, [facility] [id number] August, [facility] [id number] [address] August, [facility] [address] August, [facility] [address] [address] 2610 Mar, [facility] [id number] Mar, [facility] [address] [address]- [address] Mar, [facility] [id number] [place] [address] 561331- 9877 Mar, [facility] [id number] [place] [address] 15404- 8959 Feb, [facility] [id number] [place] [address] 245654- 3548 Feb, [facility] [address] [address] Feb, [facility] [address], [place] [address] Feb, IMMUNIZATIONS No Known Immunizations SOCIAL HISTORY Never Assessed REASON FOR VISIT HH noticed today that wound vac Drainage has changed to a brown color with foul odor. No fever. Was on Bactrim that she completed on 02/23 Justin PLAN OF CARE Activity Details Follow Up prn Reason: VITAL SIGNS Height 62 in 2018-02-27 Weight 256.6 lbs 2018-02-27 Temperature 97.1 degrees Fahrenheit 2018-02-27 Heart Rate 100 bpm 2018-02-27 Respiratory Rate 22 2018-02-27 BMI 46.93 kg/m2 2018-02-27 Blood pressure systolic 118 mmHg 2018-02-27 Blood pressure diastolic 72 mmHg 2018-02-27 MEDICATIONS Medication Instructions Dosage Frequency Start Date End Date Duration Status Walker N/A as directed Jun, Active Atorvastatin Calcium 40 mg Orally Once a day 1 tablet 24h Apr, 90 days Active Pravastatin Sodium 20 MG TAKE ONE TABLET BY MOUTH ONCE DAILY 30 Active Lisinopril 40 MG TAKE ONE (1) TABLET BY MOUTH ONCE DAILY 90 Active Levothyroxine Sodium 200 MCG Orally Once a day 1 tablet on an empty stomach in the morning 24h Jun, 30 day(s) Active Paroxetine HCl 20 MG TAKE ONE (1) TABLET BY MOUTH ONCE DAILY IN THE MORNING 90 Active Metformin HCl 1000 MG TAKE ONE (1) TABLET BY MOUTH TWICE DAILY WITH MEALS 90 Active RESULTS No Results PROCEDURES Procedure Date Ordered Result Body Site [facility] VISIT ESTABLISHED PATIENT Feb 27, 2018 INSTRUCTIONS MEDICATIONS ADMINISTERED No Known Medications [...]
--- OUTSIDE RECORDS SUMMARY | 2018-07-01 17:15 | XMS REPORT ---
Author Author SONIA ERIC Organization [facility] Address [address] [place] [address] Care Team Providers Care Implementation Consultant Name Role Phone SONIAJEWELL FATIMAHANY Unavailable PROBLEMS Type Condition ICD9-CM Code EVU53-OS Code Onset Dates Condition Status SNOMED Code Problem Type 2 diabetes mellitus with diabetic polyneuropathy, without long- term current use of insulin E11.42 Active 05347631 Problem Incisional hernia, without obstruction or gangrene K43.2 Active 296327412 Problem Acquired asplenia Z90.81 Active 580803695 Problem Recurrent major depressive disorder, in full remission F33.42 Active 76389720 Problem Locking of left knee M23.92 Active [id number] Problem BMI 50.0-59.9, adult Z68.43 Active 088430466 Problem Elevated platelet count D47.3 Active 4573497 Problem Primary osteoarthritis of both knees M17.0 Active 651905104 Problem Other chronic pain G89.29 Active 81974641 Problem Mixed hyperlipidemia E78.2 Active 796363909 Problem Essential hypertension I10 Active 72936746 Problem Primary osteoarthritis involving multiple joints M15.0 Active 373211447 Problem Type 2 diabetes mellitus with hyperglycemia E11.65 Active 26884229 Problem Chronic hepatitis C without hepatic coma B18.2 Active 340322514 Problem Hypothyroidism, unspecified E03.9 Active 182143963 Problem Sensorineural hearing loss of both ears H90.3 Active [id number] ALLERGIES No Information ENCOUNTERS Encounter Location Date Diagnosis [facility] [address] [facility] [id number] [address] Feb, [facility] [id number] [address] Feb, [facility] [address] [facility] [id number], [place] [address] Feb, BMI 45.0-49.9, adult Z68.42 and Unspecified open wound of abdominal wall, unspecified quadrant without penetration into peritoneal cavity , initial encounter S31.109A [place] [id number] [place] [address] 81953- 0927 Feb, [place] [id number] [place] [address] 69039- 9141 Feb, [place] [id number] [place] [address] 00938- 6604 Jan, Medicare annual wellness visit, initial Z00.00 [...] remission F33.42 and Encounter for immunization Z23 [place] [id number] [place] [address] 74288- 2338 Jan, [place] [id number] [place] [address] 76407- 3178 Jan, Hypothyroidism, unspecified E03.9 [place] [id number] [place] [address] 54010- 7600 Sep, [place] [id number] [place] [address] 77195- 9189 Sep, Chronic hepatitis C without hepatic coma B18.2 and Hypothyroidism, unspecified E03.9 [place] [id number] [place] [address] 89384- 4912 Sep, Essential hypertension I10 [place] [id number] [place] [address] 12595- 8000 Jun, Hypothyroidism, unspecified E03.9 [place] [id number] [place] [address] 20883- 6063 Jun, Chronic hepatitis C without hepatic coma B18.2 and Hypothyroidism, unspecified E03.9 [place] [id number] [place] [address] 30283- 9050 Jun, [place] [id number] [place] [address] 68747- 3595 Jun, BMI 45.0-49.9, adult Z68.42 ; Essential hypertension I10 ; Major depressive disorder, recurrent, unspecified F33.9 ; Elevated platelet count D47.3 ; Primary osteoarthritis involving multiple joints M15.0 ; Locking of left knee M23.92 ; Right knee buckling M25.361 and Primary osteoarthritis of both knees M17.0 [place] [id number] [place] [address] 96650- 4187 Apr, Hypothyroidism, unspecified E03.9 [place] [id number] [place] [address] 93805- 9737 Apr, Type 2 diabetes mellitus with hyperglycemia [...] immunization Z23 and BMI 50.0-59.9, adult Z68.43 [address] [id number] [place] [address] 37974- 5323 Nov, Elevated platelet count D47.3 [place] [id number] [place] [address] 50445- 6606 Oct, Mixed hyperlipidemia E78.2 ; Essential hypertension I10 ; Major depressive disorder, recurrent, unspecified F33.9 and Type 2 diabetes mellitus with diabetic polyneuropathy, without long-term current use of insulin E11.42 [place] [id number] [place] [address] 07557- 7964 Oct, Elevated platelet count D47.3 [place] [id number] [place] [address] 37934- 4051 Oct, Chronic hepatitis C without hepatic coma B18.2 [place] [address] 64755- 0495 Sep, [place] [address] 38422- 1003 Sep, Mixed hyperlipidemia E78.2 [place] [id number] [place] [address] 83761- 6634 Mar, [place] [address] 25764- 0424 Mar, Incisional hernia, without obstruction or gangrene K43.2 [place] [id number] [place] [address] 88017- 0376 Feb, Chronic hepatitis C without hepatic coma B18.2 [place] [id number] [place] [address] 93988- 0316 Jan, [place] [id number] [place] [address] 93878- 0686 Jan, [place] [id number] [place] [address] 35545- 8062 13 Jan, 2016 Type 2 diabetes mellitus with diabetic polyneuropathy, without long-term current use of insulin E11.42 ; Hypothyroidism, unspecified E03.9 ; Mixed hyperlipidemia E78.2 ; Essential hypertension I10 ; Major depressive disorder, recurrent, unspecified F33.9 ; Acquired asplenia Z90.81 ; Encounter for immunization Z23 and Chronic hepatitis C without hepatic coma B18.2 [place] [id number] [address] Jan, Type 2 diabetes mellitus with hyperglycemia E11.65 ; Mixed hyperlipidemia E78.2 and Hypothyroidism, unspecified E03.9 [facility] [address], [place] [address] Dec, Chronic hepatitis C without hepatic coma B18.2 [facility] [address], [place] [address] Nov, [facility] [id number] [place] [address] 60776- 5650 Nov, [facility] [id number] [place] [address] 87095- 0937 Oct, [facility] [id number] [place] [address] 73056- 9674 Oct, [facility] [id number] [place] [address] 86310- 2672 Sep, [facility] [address], [place] [address] Sep, Hypothyroidism, unspecified E03.9 [facility] [address], [place] [address] 2595 Sep, Chronic hepatitis C without hepatic coma B18.2 [facility] [address], [place] [address] Sep, Type 2 diabetes mellitus with hyperglycemia E11.65 ; Chronic hepatitis C without hepatic coma B18.2 ; Hypothyroidism, unspecified E03.9 ; Major depressive disorder, recurrent, unspecified F33.9 ; Essential hypertension I10 ; Mixed hyperlipidemia E78.2 and Type 2 diabetes mellitus with diabetic polyneuropathy, without long-term current use of insulin E11.42 [facility] [address], [place] [address] August, [facility] [address], [place] [address] August, Breast nodule N63 [place] [id number] [place] [address] 30027- 9339 Feb, [place] [address] 07998- 1542 Feb, Breast nodule N63 [place] [address] 00815- 2582 Jan, Essential hypertension I10 ; Chronic hepatitis C without hepatic coma B18.2 ; Major depressive disorder, recurrent, unspecified F33.9 ; Type 2 diabetes mellitus with hyperglycemia E11.65 and Tinnitus of both ears H93.[address] 93035- 8634 Jan, Hypothyroidism, unspecified E03.[address] 25505- 5255 Jan, Hyperlipidemia LDL goal <100 272.4 ; Unspecified hypothyroidism 244.9 and Acute renal insufficiency 593.[address] 91414- 7204 Jan, Breast screening Z12.[address] 44930- 2687 Oct, Breast cancer screening V76.[address] 43139- 1503 Sep, Chronic hepatitis C without mention of hepatic coma 070.54 and Acute renal insufficiency 593.9 [place] [id number] [place] [address] 49411- 7826 Sep, Routine gynecological examination V72.31 ; Pap test, as part of routine gynecological examination V76.2 ; Breast cancer screening V76.10 ; Postmenopausal V49.81 and Vulvar itching 698.1 [id number] [place] [address] 83467- 4449 Sep, Chronic hepatitis C without mention of hepatic coma 070.54 ; Acute renal insufficiency 593.9 and Hyperlipidemia LDL goal <100 272.4 [facility] [id number] [address]- 9594 Sep, Chronic hepatitis C without mention of hepatic coma 070.54 ; Unspecified hypothyroidism 244.9 ; Essential hypertension, benign 401.1 ; Osteoarthritis 715.90 ; Diabetes mellitus without mention of complication, type II or unspecified type, uncontrolled 250.02 and Colon cancer screening V76.51 [facility] [id number] [place] [address] 61340- 5473 Sep, [facility] [id number] [place] [address] 42625- 3515 Jul, [facility] [id number] [place] [address] 88044- 8220 Jul, [facility] [id number] [place] [address] 68359- 7262 Dec, [facility] [id number] [place] [address] 38438- 6348 Dec, [facility] [id number] [place] [address] 60013- 0371 Oct, [facility] [id number] [place] [address] 16792- 2425 Oct, [facility] [address], [place] [address]- 2723 Sep, [facility] [id number] [address]- 7925 Sep, [facility] [id number] [address]- 9438 August, [facility] [id number] [place] [address] [id number]- 7442 August, [facility] [address] [address]140 August, [facility] [id number] [address]- 4209 August, [facility] [address], [place] [address]- 8573 August, [facility] [address], [place] [address]- 7982 August, [facility] [address], [place] [address]- 0043 Mar, [facility] [id number] [place] [address] 66899- 5735 Mar, [facility] [id number] [place] [address] 05185- 9813 Mar, [facility] [id number] [place] [address] 50387- 4383 Mar, [facility] [id number] [place] [address] 65685- 5600 Feb, [facility] [address], [place] [address]- 5055 Feb, [facility] [address], [place] [address]- 8458 Feb, [facility] [address], [place] [address]- 3854 Feb, IMMUNIZATIONS No Known Immunizations SOCIAL HISTORY Never Assessed REASON FOR VISIT Requests return call PLAN OF CARE VITAL SIGNS MEDICATIONS Unknown [...]
--- OUTSIDE RECORDS SUMMARY | 2018-07-01 17:15 | XMS REPORT ---
Author Author SONIA ERIC Organization [facility] Address [address] [place] [address] Care Team Providers Care Physical Therapist Center Manager Name Role Phone SONIAJEWELL FATIMAHANY Unavailable PROBLEMS Type Condition ICD9-CM Code [id number] Code Onset Dates Condition Status SNOMED Code Problem Type 2 diabetes mellitus with diabetic polyneuropathy, without long- term current use of insulin E11.42 Active 43879540 Problem Incisional hernia, without obstruction or gangrene K43.2 Active 893080777 Problem Acquired asplenia Z90.81 Active 837517714 Problem Recurrent major depressive disorder, in full remission F33.42 Active 14483653 Problem Locking of left knee M23.92 Active 11529257795388111 Problem BMI 50.0-59.9, adult Z68.43 Active 331438395 Problem Elevated platelet count D47.3 Active 2100595 Problem Primary osteoarthritis of both knees M17.0 Active 679001490 Problem Other chronic pain G89.29 Active 32285560 Problem Mixed hyperlipidemia E78.2 Active 121341222 Problem Essential hypertension I10 Active 59620536 Problem Primary osteoarthritis involving multiple joints M15.0 Active 164292830 Problem Type 2 diabetes mellitus with hyperglycemia E11.65 Active 41505100 Problem Chronic hepatitis C without hepatic coma B18.2 Active 592238059 Problem Hypothyroidism, unspecified E03.9 Active 723615166 Problem Sensorineural hearing loss of both ears H90.3 Active 161067799 ALLERGIES No Information ENCOUNTERS Encounter Location Date Diagnosis [facility] [address] [facility] [id number] [address] 8[address] Feb, [facility] [address] [place] [address] [id number] [address] 4474 Feb, [facility] [address] [facility] [id number] [address] Feb, BMI 45.0-49.9, adult Z68.42 and Unspecified open wound of abdominal wall, unspecified quadrant without penetration into peritoneal cavity , initial encounter S31.109A [place] [id number] [place] [address] 77948- 2192 Feb, [place] [id number] [place] [address] 69552- 0983 Feb, [place] [id number] [place] [address] 56227- 6000 Jan, Medicare annual wellness visit, initial Z00.00 [...] remission F33.42 and Encounter for immunization Z23 [place] [address] [place] [address] 57261- 4075 Jan, [place] [id number] [place] [address] 89343- 3515 Jan, Hypothyroidism, unspecified E03.9 [place] [id number] [place] [address] 32669- 6179 Sep, [place] [id number] [place] [address] 85696- 6558 Sep, Chronic hepatitis C without hepatic coma B18.2 and Hypothyroidism, unspecified E03.9 [place] [id number] [place] [address] 65722- 2304 Sep, Essential hypertension I10 [place] [address] [place] [address] 29971- 6535 Jun, Hypothyroidism, unspecified E03.9 [place] [id number] [place] [address] 66705- 2816 Jun, Chronic hepatitis C without hepatic coma B18.2 and Hypothyroidism, unspecified E03.9 [place] [id number] [place] [address] 15576- 2192 Jun, [place] [id number] [place] [address] 68936- 8163 Jun, BMI 45.0-49.9, adult Z68.42 ; Essential hypertension I10 ; Major depressive disorder, recurrent, unspecified F33.9 ; Elevated platelet count D47.3 ; Primary osteoarthritis involving multiple joints M15.0 ; Locking of left knee M23.92 ; Right knee buckling M25.361 and Primary osteoarthritis of both knees M17.0 [place] [id number] [place] [address] 72509- 4990 Apr, Hypothyroidism, unspecified E03.9 [place] [id number] [place] [address] 86219- 2401 Apr, Type 2 diabetes mellitus with hyperglycemia [...] immunization Z23 and BMI 50.0-59.9, adult Z68.43 [place] [id number] [place] [address] 50680- 6290 Nov, Elevated platelet count D47.3 [place] [id number] [place] [address] 35951- 3673 Oct, Mixed hyperlipidemia E78.2 ; Essential hypertension I10 ; Major depressive disorder, recurrent, unspecified F33.9 and Type 2 diabetes mellitus with diabetic polyneuropathy, without long-term current use of insulin E11.42 [place] [id number] [place] [address] 63767- 7335 Oct, Elevated platelet count D47.3 [place] [id number] [place] [address] 35647- 4235 Oct, Chronic hepatitis C without hepatic coma B18.2 [place] [address] 58194- 4466 Sep, [place] [address] 61178- 5289 Sep, Mixed hyperlipidemia E78.2 [place] [id number] [place] [address] 37045- 6925 Mar, [place] [address] 11840- 6847 Mar, Incisional hernia, without obstruction or gangrene K43.2 [place] [id number] [place] [address] 00041- 7908 Feb, Chronic hepatitis C without hepatic coma B18.2 [place] [id number] [place] [address] 64666- 6837 Jan, [place] [id number] [place] [address] 64618- 7747 Jan, [place] [id number] [place] [address] 49082- 8745 13 Jan, 2016 Type 2 diabetes mellitus with diabetic polyneuropathy, without long-term current use of insulin E11.42 ; Hypothyroidism, unspecified E03.9 ; Mixed hyperlipidemia E78.2 ; Essential hypertension I10 ; Major depressive disorder, recurrent, unspecified F33.9 ; Acquired asplenia Z90.81 ; Encounter for immunization Z23 and Chronic hepatitis C without hepatic coma B18.2 [place] [address] [id number] [address] 9322 Jan, Type 2 diabetes mellitus with hyperglycemia E11.65 ; Mixed hyperlipidemia E78.2 and Hypothyroidism, unspecified E03.9 [facility] [address] [address] 6894 Dec, Chronic hepatitis C without hepatic coma B18.2 [facility] [address] [address]- 0695 Nov, [facility] [id number] [place] [address] 96783- 0778 Nov, [facility] [id number] [place] [address] 67777- 9680 Oct, [facility] [id number] [place] [address] 79338- 0649 Oct, [facility] [id number] [place] [address] 64710- 4110 Sep, [facility] [address] [address]- 4598 Sep, Hypothyroidism, unspecified E03.9 [facility] [address] [address]- 8658 Sep, Chronic hepatitis C without hepatic coma B18.2 [facility] [address] [address]- 5881 Sep, Type 2 diabetes mellitus with hyperglycemia E11.65 ; Chronic hepatitis C without hepatic coma B18.2 ; Hypothyroidism, unspecified E03.9 ; Major depressive disorder, recurrent, unspecified F33.9 ; Essential hypertension I10 ; Mixed hyperlipidemia E78.2 and Type 2 diabetes mellitus with diabetic polyneuropathy, without long-term current use of insulin E11.42 [facility] [address] [address]- 3178 August, [facility] [address] [address]- 2775 August, Breast nodule N63 [place] [id number] [place] [address] 28709- 3448 Feb, [place] [address] 35295- 0462 Feb, Breast nodule N63 [place] [address] 99659- 8141 Jan, Essential hypertension I10 ; Chronic hepatitis C without hepatic coma B18.2 ; Major depressive disorder, recurrent, unspecified F33.9 ; Type 2 diabetes mellitus with hyperglycemia E11.65 and Tinnitus of both ears H93.[address] 55048- 5496 Jan, Hypothyroidism, unspecified E03.[address] 99728- 2799 Jan, Hyperlipidemia LDL goal <100 272.4 ; Unspecified hypothyroidism 244.9 and Acute renal insufficiency 593.[address] 82644- 7367 Jan, Breast screening Z12.[address] 09607- 2986 Oct, Breast cancer screening V76.[address] 30444- 5097 Sep, Chronic hepatitis C without mention of hepatic coma 070.54 and Acute renal insufficiency 593.9 [place] [id number] [place] [address] 30023- 4313 Sep, Routine gynecological examination V72.31 ; Pap test, as part of routine gynecological examination V76.2 ; Breast cancer screening V76.10 ; Postmenopausal V49.81 and Vulvar itching 698.1 [place] [id number] [place] [address] 72507- 1176 Sep, Chronic hepatitis C without mention of hepatic coma 070.54 ; Acute renal insufficiency 593.9 and Hyperlipidemia LDL goal <100 272.4 [facility] [id number] [address]- 9750 Sep, Chronic hepatitis C without mention of hepatic coma 070.54 ; Unspecified hypothyroidism 244.9 ; Essential hypertension, benign 401.1 ; Osteoarthritis 715.90 ; Diabetes mellitus without mention of complication, type II or unspecified type, uncontrolled 250.02 and Colon cancer screening V76.51 [facility] [id number] [place] [address] 57333- 7196 Sep, [facility] [id number] [place] [address] 04526- 6140 Jul, [facility] [id number] [place] [address] 30659- 3845 Jul, [facility] [id number] [place] [address] 53971- 0353 Dec, [facility] [id number] [place] [address] 28784- 2981 Dec, [facility] [id number] [place] [address] 14202- 4711 Oct, [facility] [id number] [place] [address] 26342- 2070 Oct, [facility] [address] [address]- 5326 Sep, [facility] [id number] [address]- 5532 Sep, [facility] [id number] [address]- 1656 August, [facility] [id number] [place] [address] 10306233- 2575 August, [facility] [address] 1596 August, [facility] [id number] [address]- 5736 August, [facility] [address] [address]- 2221 August, [facility] [address] [address]- 5075 August, [facility] [address] [address]- 2137 Mar, [facility] [address] [address]- 5602 Mar, [facility] [id number] [place] [address] 87672- 8716 Mar, [facility] [id number] [place] [address] 44253- 9218 Mar, [facility] [id number] [place] [address] 95258- 1455 Feb, [facility] [address] [address]- 9994 Feb, [facility] [address] [address]- 3499 Feb, [facility] [address] [address]- 4968 Feb, IMMUNIZATIONS No Known Immunizations SOCIAL HISTORY Never Assessed REASON FOR VISIT FYI PLAN OF CARE VITAL SIGNS MEDICATIONS Unknown [...]
--- OUTSIDE RECORDS SUMMARY | 2018-07-01 17:16 | XMS REPORT ---
Author Author SONIA ERIC [facility] Address [address] [place] [address] Care Team Providers Care Resident Assistant Cna Name Role Phone NICK SCOTTY Unavailable PROBLEMS Type Condition ICD9-CM Code DWP97-MI Code Onset Dates Condition Status SNOMED Code Problem Type 2 diabetes mellitus with diabetic polyneuropathy, without long- term current use of insulin E11.42 Active 04908668 Problem Incisional hernia, without obstruction or gangrene K43.2 Active 624647106 Problem Acquired asplenia Z90.81 Active 914490363 Problem Recurrent major depressive disorder, in full remission F33.42 Active 85976860 Problem Locking of left knee M23.92 Active 06896342715309294 Problem BMI 50.0-59.9, adult Z68.43 Active 126054306 Problem Elevated platelet count D47.3 Active 8289678 Problem Primary osteoarthritis of both knees M17.0 Active 354528050 Problem Other chronic pain G89.29 Active 11502289 Problem Mixed hyperlipidemia E78.2 Active 589734600 Problem Essential hypertension I10 Active 39120313 Problem Primary osteoarthritis involving multiple joints M15.0 Active 966099066 Problem Type 2 diabetes mellitus with hyperglycemia E11.65 Active 32288153 Problem Chronic hepatitis C without hepatic coma B18.2 Active 516887623 Problem Hypothyroidism, unspecified E03.9 Active 688618020 Problem Sensorineural hearing loss of both ears H90.3 Active 655645554 ALLERGIES No Information ENCOUNTERS Encounter Location Date Diagnosis [facility] [address] [facility] [id number] [address]- 4320 Feb, [facility] [address] [id number] [address]- 3337 Feb, [facility] [address] [id number] [address]- 6289 Jan, Medicare annual wellness visit, initial Z00.00 [...] remission F33.42 and Encounter for immunization Z23 [place] [address] 45818- 4726 Jan, [place] [address] 68199- 4681 Jan, Hypothyroidism, unspecified E03.9 [place] [address] [id number] [place] [address] 35936- 8726 Sep, [place] [address] 83941- 9928 Sep, Chronic hepatitis C without hepatic coma B18.2 and Hypothyroidism, unspecified E03.9 [place] [address] [place] [id number] [place] [address] 38546- 8640 Sep, Essential hypertension I10 [place] [address] 27264- 0175 Jun, Hypothyroidism, unspecified E03.9 [place] [address] 39320- 7346 Jun, Chronic hepatitis C without hepatic coma B18.2 and Hypothyroidism, unspecified E03.9 [place] [address] [place] [id number] [place] [address] 52118- 1579 Jun, [place] [address] [place] [address]- 0546 Jun, BMI 45.0-49.9, adult Z68.42 ; Essential hypertension I10 ; Major depressive disorder, recurrent, unspecified F33.9 ; Elevated platelet count D47.3 ; Primary osteoarthritis involving multiple joints M15.0 ; Locking of left knee M23.92 ; Right knee buckling M25.361 and Primary osteoarthritis of both knees M17.[address] 03014- 1768 Apr, Hypothyroidism, unspecified E03.[address] 71893- 9491 Apr, Type 2 diabetes mellitus with hyperglycemia [...] immunization Z23 and BMI 50.0-59.9, adult Z68.43 [place] [id number] [place] [address] 80922- 8406 Nov, Elevated platelet count D47.3 [place] [id number] [place] [address] 04376- 9937 Oct, Mixed hyperlipidemia E78.2 ; Essential hypertension I10 ; Major depressive disorder, recurrent, unspecified F33.9 and Type 2 diabetes mellitus with diabetic polyneuropathy, without long-term current use of insulin E11.42 [place] [address] [place] [id number] [place] [address] 83016- 7652 Oct, Elevated platelet count D47.3 [place] [id number] [place] [address] 18881- 4917 Oct, Chronic hepatitis C without hepatic coma B18.2 [place] [address] [place] [id number] [place] [address] 58265- 9623 Sep, [facility] [address] [place] [address] 96824- 4175 Sep, Mixed hyperlipidemia E78.2 [facility] [address] [place] [id number] [place] [address] 14532- 1821 Mar, [facility] [address] [place] [id number] [place] [address] 11241- 0283 Mar, Incisional hernia, without obstruction or gangrene K43.2 [facility] [address] [place] [id number] [place] [address] 47031- 4338 Feb, Chronic hepatitis C without hepatic coma B18.2 [place] [address] [place] [id number] [place] [address] 10465- 3784 Jan, [place] [address] [place] [address] [id number] [place] [address] 31080- 4423 Jan, [facility] [address] [place] [id number] [place] [address] 11402- 9385 Jan, Type 2 diabetes mellitus with diabetic polyneuropathy, without long-term current use of insulin E11.42 ; Hypothyroidism, unspecified E03.9 ; Mixed hyperlipidemia E78.2 ; Essential hypertension I10 ; Major depressive disorder, recurrent, unspecified F33.9 ; Acquired asplenia Z90.81 ; Encounter for immunization Z23 and Chronic hepatitis C without hepatic coma B18.2 [place] [address] [place] [address] 07904- 4680 Jan, Type 2 diabetes mellitus with hyperglycemia E11.65 ; Mixed hyperlipidemia E78.2 and Hypothyroidism, unspecified E03.9 [place] [address] [place] [address] [id number] [place] [address] 01390- 9055 Dec, Chronic hepatitis C without hepatic coma B18.2 [facility] [address] [id number] [place] [address] 55490- 0615 Nov, [facility] [address] [place] [id number] [place] [address] 97578- 9593 Nov, [facility] [id number], [place] [address]- 8652 Oct, [facility] [address] 7675 Oct, [facility] [address], [place] [address]- 6949 Sep, [facility] [address], [place] [address]- 1875 Sep, Hypothyroidism, unspecified E03.9 [facility] [address], [place] [address]- 4368 Sep, Chronic hepatitis C without hepatic coma B18.2 [place] [address], [place] [address]- 0396 Sep, Type 2 diabetes mellitus with hyperglycemia E11.65 ; Chronic hepatitis C without hepatic coma B18.2 ; Hypothyroidism, unspecified E03.9 ; Major depressive disorder, recurrent, unspecified F33.9 ; Essential hypertension I10 ; Mixed hyperlipidemia E78.2 and Type 2 diabetes mellitus with diabetic polyneuropathy, without long-term current use of insulin E11.42 [facility] [address], [place] [address]- 8831 August, [facility] [id number], [place] [address]- 5869 August, Breast nodule N63 [facility] [id number], [place] [address]- 4506 Feb, [facility] [address], [place] [address]- 7531 Feb, Breast nodule N63 [facility] [id number], [place] [address]- 3707 Jan, Essential hypertension I10 ; Chronic hepatitis C without hepatic coma B18.2 ; Major depressive disorder, recurrent, unspecified F33.9 ; Type 2 diabetes mellitus with hyperglycemia E11.65 and Tinnitus of both ears H93.13 [place] [id number] [place] [address] 35247- 4961 Jan, Hypothyroidism, unspecified E03.9 [place] [id number] [place] [address] 30206- 8288 Jan, Hyperlipidemia LDL goal <100 272.4 ; Unspecified hypothyroidism 244.9 and Acute renal insufficiency 593.[address] 56228- 4492 Jan, Breast screening Z12.[address] 141466- 0032 Oct, Breast cancer screening V76.[address] 33734- 8949 Sep, Chronic hepatitis C without mention of hepatic coma 070.54 and Acute renal insufficiency 593.9 [place] [id number] [place] [address] 01371- 0482 Sep, Routine gynecological examination V72.31 ; Pap test, as part of routine gynecological examination V76.2 ; Breast cancer screening V76.10 ; Postmenopausal V49.81 and Vulvar itching 698.1 [place] [id number] [place] [address] 06013- 4371 Sep, Chronic hepatitis C without mention of hepatic coma 070.54 ; Acute renal insufficiency 593.9 and Hyperlipidemia LDL goal <100 272.4 [place] [id number] [place] [address] 10321- 2965 Sep, Chronic hepatitis C without mention of hepatic coma 070.54 ; Unspecified hypothyroidism 244.9 ; Essential hypertension, benign 401.1 ; Osteoarthritis 715.90 ; Diabetes mellitus without mention of complication, type II or unspecified type, uncontrolled 250.02 and Colon cancer screening V76.51 [place] [id number] [place] [address] 73886- 6082 Sep, [place] [address] [id number] [place] [address]- 5582 14 Jul, 2014 [facility] [place] [facility] [address] [id number] [place] [address]- 0938 13 Jul, 2014 [facility] [place] [facility] [address] [id number] [place] [address]- 4439 Dec, [facility] [place] [facility] [address] [id number] [place] [address]- 2811 Dec, [facility] [place] [facility] [address] [id number] [place] [address]- 1903 Oct, [facility] [place] [facility] [address] [id number] [place] [address]- 8682 Oct, [facility] [place] [facility] [address] [id number] [place] [address]- 1009 Sep, [facility] [place] [facility] [address] [id number] [place] [address]- 7655 Sep, [facility] [place] [facility] [address] [id number] [place] [address]- 5212 August, [facility] [place] [facility] [address] [id number] [place] [address]- 5271 August, [facility] [place] [facility] [address] [id number] [place] [address]- 9837 August, [facility] [place] [facility] [address] [id number] [place] [address]- 4719 August, [facility] [place] [facility] [address] [id number] [place] [address]- 2154 August, [facility] [place] [facility] [address] [id number] [place] [address]- 4794 August, [facility] [place] [facility] [address] [id number] [place] [address]- 8208 Mar, [facility] [place] [facility] [address] [id number] [place] [address]- 1851 Mar, [facility] [address] [facility] [id number] [place] [address]- 7978 Mar, [facility] [id number], [place] [address]- 9266 Mar, [facility] [id number], [place] [address]- 3714 Feb, [facility] [id number], [place] [address]- 6206 Feb, [facility] [address] [facility] [id number] 3481 Feb, [facility] [id number] 2571 Feb, IMMUNIZATIONS No Known Immunizations SOCIAL HISTORY Never Assessed REASON FOR VISIT Hospital f/u call PLAN OF CARE VITAL SIGNS MEDICATIONS [...] lysis of adhesions - Dr. Devine 12/2017 Hospitalization History Hospitalization for surgery only Hospitalization History child Hospitalization History Hernia Repairs (5) Hospitalization History Tooth Bleeding/pulled August 2014 Hospitalization History Pneumonia June 2014 Hospitalization History Hernia/hernia repair 12/2017
--- OUTSIDE RECORDS SUMMARY | 2018-07-01 17:16 | XMS REPORT ---
Author Author SONIA ERIC Organization [facility] Address [address] [place] [address] Care Team Providers Care Electric Lift Truck Driver Name Role Phone SONIAJEWELL FATIMAHANY Unavailable PROBLEMS Type Condition ICD9-CM Code JTL13-TR Code Onset Dates Condition Status SNOMED Code Problem Type 2 diabetes mellitus with diabetic polyneuropathy, without long- term current use of insulin E11.42 Active 87485910 Problem Incisional hernia, without obstruction or gangrene K43.2 Active 384214819 Problem Acquired asplenia Z90.81 Active 442468231 Problem Recurrent major depressive disorder, in full remission F33.42 Active 75312606 Problem Locking of left knee M23.92 Active 65994701418682423 Problem BMI 50.0-59.9, adult Z68.43 Active 251491601 Problem Elevated platelet count D47.3 Active 7249257 Problem Primary osteoarthritis of both knees M17.0 Active 361169744 Problem Other chronic pain G89.29 Active 73860408 Problem Mixed hyperlipidemia E78.2 Active 790150833 Problem Essential hypertension I10 Active 86676355 Problem Primary osteoarthritis involving multiple joints M15.0 Active 129664130 Problem Type 2 diabetes mellitus with hyperglycemia E11.65 Active 46389759 Problem Chronic hepatitis C without hepatic coma B18.2 Active 288595555 Problem Hypothyroidism, unspecified E03.9 Active 727086320 Problem Sensorineural hearing loss of both ears H90.3 Active 307389750 ALLERGIES No Information ENCOUNTERS Encounter Location Date Diagnosis [facility] [address] [facility] [id number], [place] [address] Feb, [facility] [address] [facility] [id number], [place] [address] Feb, BMI 45.0-49.9, adult Z68.42 and Unspecified open wound of abdominal wall, unspecified quadrant without penetration into peritoneal cavity , initial encounter S31.109A [facility] [id number] [address] Feb, [facility] [address] [place] [id number] [place] [address]- 1727 Feb, [facility] [id number], [place] [address] Jan, Medicare annual wellness visit, initial Z00.00 [...] remission F33.42 and Encounter for immunization Z23 [place] [id number] [place] [address]96- 5229 Jan, [place] [id number] [place] [address] 53039- 9787 Jan, Hypothyroidism, unspecified E03.9 [place] [id number] [address] Sep, [facility] [id number] [place] [address] 54976- 8958 Sep, Chronic hepatitis C without hepatic coma B18.2 and Hypothyroidism, unspecified E03.9 [facility] [id number] [place] [address] 26941- 2046 Sep, Essential hypertension I10 [facility] [id number] [place] [address] 51534- 4813 Jun, Hypothyroidism, unspecified E03.9 [place] [id number] [address] Jun, Chronic hepatitis C without hepatic coma B18.2 and Hypothyroidism, unspecified E03.9 [place] [id number] [address] Jun, [place] [id number] [place] [address] 14537- 8472 Jun, BMI 45.0-49.9, adult Z68.42 ; Essential hypertension I10 ; Major depressive disorder, recurrent, unspecified F33.9 ; Elevated platelet count D47.3 ; Primary osteoarthritis involving multiple joints M15.0 ; Locking of left knee M23.92 ; Right knee buckling M25.361 and Primary osteoarthritis of both knees M17.0 [place] [id number] [place] [address] 56328- 9868 Apr, Hypothyroidism, unspecified E03.9 [place] [id number] [place] [address] 64766- 0905 Apr, Type 2 diabetes mellitus with hyperglycemia [...] immunization Z23 and BMI 50.0-59.9, adult Z68.43 [place] [id number] [place] [address] 78622- 7959 Nov, Elevated platelet count D47.3 [place] [id number] [place] [address] 38788- 9143 Oct, Mixed hyperlipidemia E78.2 ; Essential hypertension I10 ; Major depressive disorder, recurrent, unspecified F33.9 and Type 2 diabetes mellitus with diabetic polyneuropathy, without long-term current use of insulin E11.42 [place] [id number] [place] [address] 36875- 0227 Oct, Elevated platelet count D47.3 [place] [id number] [place] [address] 21126- 7835 Oct, Chronic hepatitis C without hepatic coma B18.2 [place] [id number] [place] [address] 51386- 2071 Sep, [place] [id number] [place] [address] 73587- 7534 Sep, Mixed hyperlipidemia E78.2 [place] [id number] [place] [address] 09134- 7496 Mar, [place] [id number] [place] [address] 59203- 5867 Mar, Incisional hernia, without obstruction or gangrene K43.2 [place] [id number] [place] [address] 47062- 7485 Feb, Chronic hepatitis C without hepatic coma B18.2 [place] [id number] [place] [address] 11708- 6884 Jan, [place] [id number] [place] [address] 49111- 3706 Jan, [place] [id number] [place] [address] 29607- 7179 Jan, Type 2 diabetes mellitus with diabetic polyneuropathy, without long-term current use of insulin E11.42 ; Hypothyroidism, unspecified E03.9 ; Mixed hyperlipidemia E78.2 ; Essential hypertension I10 ; Major depressive disorder, recurrent, unspecified F33.9 ; Acquired asplenia Z90.81 ; Encounter for immunization Z23 and Chronic hepatitis C without hepatic coma B18.2 [place] [id number] [place] [address] 02003- 6197 Jan, Type 2 diabetes mellitus with hyperglycemia E11.65 ; Mixed hyperlipidemia E78.2 and Hypothyroidism, unspecified E03.9 [facility] [id number] [address] Dec, Chronic hepatitis C without hepatic coma B18.2 [facility] [id number] [address] Nov, [facility] [id number] [place] [address] 71884- 8095 Nov, [facility] [id number] [place] [address] 82520- 5897 Oct, [facility] [id number] [place] [address] 45395- 8455 Oct, [facility] [id number] [place] [address] 22980- 5722 Sep, [facility] [id number] [place] [address] 37071- 4724 Sep, Hypothyroidism, unspecified E03.9 [facility] [id number], [place] [address] Sep, Chronic hepatitis C without hepatic coma B18.2 [facility] [id number], [place] [address] Sep, Type 2 diabetes mellitus with hyperglycemia E11.65 ; Chronic hepatitis C without hepatic coma B18.2 ; Hypothyroidism, unspecified E03.9 ; Major depressive disorder, recurrent, unspecified F33.9 ; Essential hypertension I10 ; Mixed hyperlipidemia E78.2 and Type 2 diabetes mellitus with diabetic polyneuropathy, without long-term current use of insulin E11.42 [facility] [id number], [place] [address] August, [facility] [id number] [address] August, Breast nodule N63 [facility] [id number] [place] [address] 27028- 4712 Feb, [place] [id number] [place] [address] 92090- 9881 Feb, Breast nodule N[address] [address]- [address]856 Jan, Essential hypertension I10 ; Chronic hepatitis C without hepatic coma B18.2 ; Major depressive disorder, recurrent, unspecified F33.9 ; Type 2 diabetes mellitus with hyperglycemia E11.65 and Tinnitus of both ears H93.[address] 66094- 7471 Jan, Hypothyroidism, unspecified E03.[address] 47820- 3858 Jan, Hyperlipidemia LDL goal <100 272.4 ; Unspecified hypothyroidism 244.9 and Acute renal insufficiency 593.[address] 26292- 7608 Jan, Breast screening Z12.[address] [address]50- 7057 Oct, Breast cancer screening V76.[address] 7[address]84- 5700 Sep, Chronic hepatitis C without mention of hepatic coma 070.54 and Acute renal insufficiency 593.[address] 77381- 6352 Sep, Routine gynecological examination V72.31 ; Pap test, as part of routine gynecological examination V76.2 ; Breast cancer screening V76.10 ; Postmenopausal V49.81 and Vulvar itching 698.[address] 56066- 4587 Sep, Chronic hepatitis C without mention of hepatic coma 070.54 ; Acute renal insufficiency 593.9 and Hyperlipidemia LDL goal <[address] 82713- 9673 Sep, Chronic hepatitis C without mention of hepatic coma 070.54 ; Unspecified hypothyroidism 244.9 ; Essential hypertension, benign 401.1 ; Osteoarthritis 715.90 ; Diabetes mellitus without mention of complication, type II or unspecified type, uncontrolled 250.02 and Colon cancer screening V76.51 [facility] [id number] [address] Sep, [facility] [id number] [place] [address] 39076- 3087 Jul, [facility] [id number] [place] [address] 30116- 1315 Jul, [facility] [id number] [place] [address] 72392- 5089 Dec, [facility] [id number] [place] [address] 47188- 0685 Dec, [facility] [id number] [place] [address] 76167- 6754 Oct, [facility] [id number] [place] [address] 65936- 3025 Oct, [facility] [id number] [place] [address] 81233- 7017 Sep, [facility] [id number] [place] [address]- 0024 Sep, [facility] [id number] [place] [address] 3[address] August, [facility] [id number] [address] August, [facility] [id number] [place] [address] [id number]- 1804 August, [facility] [id number] [address] August, [facility] [id number] [address]- 9568 August, [facility] [id number], [place] [address]- 7[address] August, [facility] [id number], [place] [address]- 3055 Mar, [facility] [id number] [place] [address]- 2865 Mar, [facility] [id number] [place] [address] 97050- 0790 Mar, [facility] [id number] [place] [address] 593090- 2934 Mar, [facility] [id number] [place] [address] 42958- 7708 Feb, [facility] [id number] [place] [address] 46566- 4940 Feb, [facility] [id number] [address]- 0971 Feb, [facility] [id number] [address] 6[address] Feb, IMMUNIZATIONS No Known Immunizations SOCIAL HISTORY [...]
--- OUTSIDE RECORDS SUMMARY | 2018-07-01 17:16 | XMS REPORT ---
Author Author SONIA ERIC Organization [facility] Address [address] [place] [address] Care Team Providers Care Care Technician Name Role Phone SONIAJEWELL FATIMAHANY Unavailable PROBLEMS Type Condition ICD9-CM Code ZEA42-BN Code Onset Dates Condition Status SNOMED Code Problem Type 2 diabetes mellitus with diabetic polyneuropathy, without long- term current use of insulin E11.42 Active 16631328 Problem Incisional hernia, without obstruction or gangrene K43.2 Active 641101932 Problem Acquired asplenia Z90.81 Active 343390483 Problem Recurrent major depressive disorder, in full remission F33.42 Active 16281383 Problem Locking of left knee M23.92 Active 46828641779979624 Problem BMI 50.0-59.9, adult Z68.43 Active 299929904 Problem Elevated platelet count D47.3 Active 4301912 Problem Primary osteoarthritis of both knees M17.0 Active 912167312 Problem Other chronic pain G89.29 Active 03159935 Problem Mixed hyperlipidemia E78.2 Active 613817059 Problem Essential hypertension I10 Active 09087400 Problem Primary osteoarthritis involving multiple joints M15.0 Active 774513698 Problem Type 2 diabetes mellitus with hyperglycemia E11.65 Active 68735872 Problem Chronic hepatitis C without hepatic coma B18.2 Active 251092577 Problem Hypothyroidism, unspecified E03.9 Active 719132856 Problem Sensorineural hearing loss of both ears H90.3 Active 930965015 ALLERGIES No Known Allergies ENCOUNTERS Encounter Location Date Diagnosis [facility] [address] [facility] [id number], [place] [address] Feb, [facility] [address] [facility] [id number], [place] [address] Jan, Medicare annual wellness visit, initial Z00.00 [...] remission F33.42 and Encounter for immunization Z23 [place] [address] [address] Jan, [place] [address] [address]- 86[address] Jan, Hypothyroidism, unspecified E03.9 [place] [address] 0[address]83- 4287 Sep, [place] [address] 51650- 6383 Sep, Chronic hepatitis C without hepatic coma B18.2 and Hypothyroidism, unspecified E03.9 [place] [address] [place] [id number] [place] [address] 51892- 9048 Sep, Essential hypertension I10 [place] [address] [place] [id number] [place] [address] 43728- 5145 Jun, Hypothyroidism, unspecified E03.9 [place] [address] [place] [id number] [place] [address] 70373- 7073 Jun, Chronic hepatitis C without hepatic coma B18.2 and Hypothyroidism, unspecified E03.9 [place] [address] 70673- 6740 Jun, [place] [address] 22479- 2162 Jun, BMI 45.0-49.9, adult Z68.42 ; Essential hypertension I10 ; Major depressive disorder, recurrent, unspecified F33.9 ; Elevated platelet count D47.3 ; Primary osteoarthritis involving multiple joints M15.0 ; Locking of left knee M23.92 ; Right knee buckling M25.361 and Primary osteoarthritis of both knees M17.0 [place] [address] [place] [address] 04434- 7422 Apr, Hypothyroidism, unspecified E03.9 [place] [address] 15135- 8923 Apr, Type 2 diabetes mellitus with hyperglycemia [...] immunization Z23 and BMI 50.0-59.9, adult Z68.43 [place] [address] [place] [id number] [place] [address] 33450- 4294 Nov, Elevated platelet count D47.3 [place] [address] [place] [id number] [place] [address] 40503- 7085 Oct, Mixed hyperlipidemia E78.2 ; Essential hypertension I10 ; Major depressive disorder, recurrent, unspecified F33.9 and Type 2 diabetes mellitus with diabetic polyneuropathy, without long-term current use of insulin E11.42 [place] [address] [place] [address] 88485- 2571 Oct, Elevated platelet count D47.3 [place] [address] [place] [id number] [place] [address] 01106- 4864 Oct, Chronic hepatitis C without hepatic coma B18.2 [place] [address] [place] [id number] [place] [address] 91223- 4897 Sep, [place] [address] [place] [id number] [place] [address] 12455- 1665 Sep, Mixed hyperlipidemia E78.2 [facility] [address] [place] [address] 93582- 0235 Mar, [facility] [address] [place] [id number] [place] [address] 88568- 6143 Mar, Incisional hernia, without obstruction or gangrene K43.2 [facility] [address] [place] [id number] [place] [address] 89842- 3711 Feb, Chronic hepatitis C without hepatic coma B18.2 [place] [address] [place] [id number] [place] [address] 51048- 2908 Jan, [place] [address] [place] [id number] [place] [address] 94117- 2136 Jan, [place] [address] [place] [id number] [place] [address] 86135- 7489 Jan, Type 2 diabetes mellitus with diabetic polyneuropathy, without long-term current use of insulin E11.42 ; Hypothyroidism, unspecified E03.9 ; Mixed hyperlipidemia E78.2 ; Essential hypertension I10 ; Major depressive disorder, recurrent, unspecified F33.9 ; Acquired asplenia Z90.81 ; Encounter for immunization Z23 and Chronic hepatitis C without hepatic coma B18.2 [place] [address] [place] [address] 52678- 8036 Jan, Type 2 diabetes mellitus with hyperglycemia E11.65 ; Mixed hyperlipidemia E78.2 and Hypothyroidism, unspecified E03.9 [place] [address] [place] [address] 16987- 6380 Dec, Chronic hepatitis C without hepatic coma B18.2 [place] [address] [place] [id number] [place] [address] 78243- 2464 Nov, [place] [address] [place] [id number] [place] [address] 71783- 2353 Nov, [facility] [address] [place] [id number] [place] [address] 99409- 6436 Oct, [facility] [address], [place] [address]- 4871 Oct, [facility] [address], [place] [address]- 7697 Sep, [facility] [address], [place] [address]- 6429 Sep, Hypothyroidism, unspecified E03.9 [facility] [address], [place] [address]- 5791 Sep, Chronic hepatitis C without hepatic coma B18.2 [place] [address] [place] [address] 67173- 7175 Sep, Type 2 diabetes mellitus with hyperglycemia E11.65 ; Chronic hepatitis C without hepatic coma B18.2 ; Hypothyroidism, unspecified E03.9 ; Major depressive disorder, recurrent, unspecified F33.9 ; Essential hypertension I10 ; Mixed hyperlipidemia E78.2 and Type 2 diabetes mellitus with diabetic polyneuropathy, without long-term current use of insulin E11.42 [place] [address], [place] [address] August, [place] [address], [place] [address] 6158 August, Breast nodule N63 [place] [address], [place] [address]- 9141 Feb, [place] [address], [place] [address]- 8337 Feb, Breast nodule N63 [facility] [address] [id number], [place] [address]- 9767 Jan, Essential hypertension I10 ; Chronic hepatitis C without hepatic coma B18.2 ; Major depressive disorder, recurrent, unspecified F33.9 ; Type 2 diabetes mellitus with hyperglycemia E11.65 and Tinnitus of both ears H93.13 [place] [address] [place] [address] 04065- 2650 Jan, Hypothyroidism, unspecified E03.9 [place] [id number] [place] [address] 92704- 7699 Jan, Hyperlipidemia LDL goal <100 272.4 ; Unspecified hypothyroidism 244.9 and Acute renal insufficiency 593.9 [place] [id number] [place] [address] 01617- 8145 Jan, Breast screening Z12.[address] 60323- 7451 Oct, Breast cancer screening V76.[address] 27399- 5919 Sep, Chronic hepatitis C without mention of hepatic coma 070.54 and Acute renal insufficiency 593.[address] 05394- 2422 Sep, Routine gynecological examination V72.31 ; Pap test, as part of routine gynecological examination V76.2 ; Breast cancer screening V76.10 ; Postmenopausal V49.81 and Vulvar itching 698.1 [place] [address] [place] [address] 08444- 9660 Sep, Chronic hepatitis C without mention of hepatic coma 070.54 ; Acute renal insufficiency 593.9 and Hyperlipidemia LDL goal <100 272.4 [place] [address] [place] [address] 71201- 7144 Sep, Chronic hepatitis C without mention of hepatic coma 070.54 ; Unspecified hypothyroidism 244.9 ; Essential hypertension, benign 401.1 ; Osteoarthritis 715.90 ; Diabetes mellitus without mention of complication, type II or unspecified type, uncontrolled 250.02 and Colon cancer screening V76.51 [address] [place] [address] 17109- 5489 Sep, [place] [id number] [place] [address] 57578- 8906 Jul, [facility] [place] [facility] [address] [id number] [place] [address]- 0843 Jul, [facility] [place] [facility] [address] [id number] [place] [address]- 3795 Dec, [facility] [place] [facility] [address] [id number] [place] [address]- 3929 Dec, [facility] [place] [facility] [address] [id number] [place] [address]- 2600 Oct, [facility] [place] [facility] [address] [id number] [place] [address]- 0538 Oct, [facility] [place] [facility] [address] [id number] [place] [address]- 4788 Sep, [facility] [place] [facility] [address] [id number] [place] [address]- 8734 Sep, [facility] [place] [facility] [address] [id number] [place] [address]- 4739 August, [facility] [place] [facility] [address] [id number] [place] [address]- 4146 August, [facility] [place] [facility] [address] [id number] [place] [address]- 2935 August, [facility] [place] [facility] [address] [id number] [place] [address]- 8133 August, [facility] [place] [facility] [address] [id number] [place] [address]- 8215 August, [facility] [place] [facility] [address] [id number] [place] [address]- 9957 August, [facility] [place] [facility] [address] [id number] [place] [address]- 2985 Mar, [facility] [place] [facility] [address] [id number] [place] [address]- 5560 Mar, [facility] [place] [facility] [address] [id number], [place] [address]- 9826 Mar, [facility] [address] [facility] [id number], [place] [address]- 3359 Mar, [facility] [address] [facility] [id number], [place] [address]- 0176 Feb, [facility] [address] [facility] [id number], [place] [address]- 1596 Feb, [facility] [address] [facility] [id number], [place] [address]- 6713 Feb, [facility] [address] [facility] [id number] [address] Feb, IMMUNIZATIONS Vaccine Route Administration Date Status TDAP (BOOSTRIX) IM Intramuscular Jan 31, 2018 Administered SOCIAL HISTORY Never Assessed REASON FOR VISIT Medicare AWV - Initial Visit PLAN OF CARE Activity Details Follow Up 1 Year Reason:AWV Pending Test Mammogram, Bilateral Screening VITAL SIGNS Height 62 in 2018-01-31 Weight 261.1 lbs 2018-01-31 Temperature 98.3 degrees Fahrenheit 2018-01-31 Heart Rate 94 bpm 2018-01-31 Respiratory Rate 22 2018-01-31 BMI 47.75 kg/m2 2018-01-31 Blood pressure systolic 124 mmHg 2018-01-31 Blood pressure diastolic 82 mmHg 2018-01-31 MEDICATIONS Medication Instructions Dosage Frequency Start Date End Date Duration Status Levothyroxine Sodium 200 MCG Orally Once a day 1 tablet on an empty stomach in the morning 24h Jun, 30 day(s) Active Pravastatin Sodium 20 MG TAKE ONE TABLET BY MOUTH ONCE DAILY 30 Active Atorvastatin Calcium 40 mg Orally Once a day 1 tablet 24h Apr, 90 days Active Lisinopril 40 MG TAKE ONE (1) TABLET BY MOUTH ONCE DAILY 90 Active Metformin HCl 1000 MG TAKE ONE (1) TABLET BY MOUTH TWICE DAILY WITH MEALS 90 Active Paroxetine HCl 20 MG TAKE ONE (1) TABLET BY MOUTH ONCE DAILY IN THE MORNING 90 Active Walker N/A as directed Jun, Active RESULTS No Results PROCEDURES Procedure Date Ordered Result Body Site ADVNCD CARE PLAN 30 MIN Jan 31, 2018 [facility] VISIT IPPE/AWV Jan 31, 2018 TDAP (BOOSTRIX) Jan 31, 2018 ANNUAL ZURI VST; PERSNL PPS INIT Jan 31, 2018 SINGLE IMMUNIZATION ADMIN Jan 31, 2018 INSTRUCTIONS MEDICATIONS ADMINISTERED No Known Medications [...]
--- OUTSIDE RECORDS SUMMARY | 2018-07-01 17:16 | XMS REPORT ---
Author Author SONIA ERIC [facility] Address [address] [place] [address] Care Team Providers Care Planisher Name Role Phone ERIC SCOTT Unavailable PROBLEMS Type Condition ICD9-CM Code IVG26-ZP Code Onset Dates Condition Status SNOMED Code Problem Sensorineural hearing loss of both ears H90.3 Active 917237579 Problem Acquired asplenia Z90.81 Active 662050346 Problem Type 2 diabetes mellitus with diabetic polyneuropathy, without long- term current use of insulin E11.42 Active 12171835 Problem Primary osteoarthritis of both knees M17.0 Active 565312278 Problem Locking of left knee M23.92 Active 48715602224932698 Problem Elevated platelet count D47.3 Active 0790524 Problem Incisional hernia, without obstruction or gangrene K43.2 Active 406073707 Problem BMI 50.0-59.9, adult Z68.43 Active 060605323 Problem Other chronic pain G89.29 Active 80952237 Problem Major depressive disorder, recurrent, unspecified F33.9 Active 757460375 Problem Hypothyroidism, unspecified E03.9 Active 925104744 Problem Essential hypertension I10 Active 16119589 Problem Mixed hyperlipidemia E78.2 Active 206821265 Problem Chronic hepatitis C without hepatic coma B18.2 Active 571109089 Problem Type 2 diabetes mellitus with hyperglycemia E11.65 Active 93098856 Problem Primary osteoarthritis involving multiple joints M15.0 Active 996464951 ALLERGIES No Information ENCOUNTERS Encounter Location Date Diagnosis [facility] [address] [id number], [place] [address]- 1838 Jan, [facility] [address] [id number], [place] [address]- 3980 Jan, [facility] [address] [id number], [place] [address]- 6219 Jan, Hypothyroidism, unspecified E03.9 [place] [address], [place] [address]- 2884 Sep, [place] [address], [place] [address]- 4618 Sep, Chronic hepatitis C without hepatic coma B18.2 and Hypothyroidism, unspecified E03.9 [place] [address], [place] [address]- 8806 Sep, Essential hypertension I10 [place] [address] [place] [address] 03385- 3905 Jun, Hypothyroidism, unspecified E03.9 [place] [address] [place] [id number] [place] [address] 34098- 4746 Jun, Chronic hepatitis C without hepatic coma B18.2 and Hypothyroidism, unspecified E03.9 [place] [address], [place] [address]- 0304 Jun, [place] [address], [place] [address]- 1051 Jun, BMI 45.0-49.9, adult Z68.42 ; Essential hypertension I10 ; Major depressive disorder, recurrent, unspecified F33.9 ; Elevated platelet count D47.3 ; Primary osteoarthritis involving multiple joints M15.0 ; Locking of left knee M23.92 ; Right knee buckling M25.361 and Primary osteoarthritis of both knees M17.0 [place] [address] [place] [id number], [place] [address]- 8400 Apr, Hypothyroidism, unspecified E03.9 [place] [address] [place] [id number], [place] [address]- 9205 Apr, Type 2 diabetes mellitus with hyperglycemia [...] immunization Z23 and BMI 50.0-59.9, adult Z68.43 [place] [address] [place] [id number] [place] [address] 24444- 7026 Nov, Elevated platelet count D47.3 [place] [address] [place] [id number] [place] [address] 45542- 6166 Oct, Mixed hyperlipidemia E78.2 ; Essential hypertension I10 ; Major depressive disorder, recurrent, unspecified F33.9 and Type 2 diabetes mellitus with diabetic polyneuropathy, without long-term current use of insulin E11.42 [place] [address] [place] [id number] [place] [address] 23041- 6476 Oct, Elevated platelet count D47.3 [place] [address] [place] [id number] [place] [address] 61569- 8690 Oct, Chronic hepatitis C without hepatic coma B18.2 [place] [address] [place] [id number] [place] [address] 16050- 4791 Sep, [place] [address] 51724- 7874 Sep, Mixed hyperlipidemia E78.2 [place] [address] [place] [id number] [place] [address] 39734- 6327 Mar, [place] [address] [place] [id number] [place] [address] 04278- 9678 Mar, Incisional hernia, without obstruction or gangrene K43.2 [place] [address] [place] [id number] [place] [address] 83169- 2113 Feb, Chronic hepatitis C without hepatic coma B18.2 [place] [address] [place] [id number] [place] [address] 53862- 8433 Jan, [place] [address] [place] [id number] [place] [address] 09887- 0841 Jan, [place] [address], [place] [address]- 6564 Jan, Type 2 diabetes mellitus with diabetic polyneuropathy, without long-term current use of insulin E11.42 ; Hypothyroidism, unspecified E03.9 ; Mixed hyperlipidemia E78.2 ; Essential hypertension I10 ; Major depressive disorder, recurrent, unspecified F33.9 ; Acquired asplenia Z90.81 ; Encounter for immunization Z23 and Chronic hepatitis C without hepatic coma B18.2 [facility] [address] [place] [id number] [place] [address] 76625- 9415 Jan, Type 2 diabetes mellitus with hyperglycemia E11.65 ; Mixed hyperlipidemia E78.2 and Hypothyroidism, unspecified E03.9 [place] [address] [place] [id number] [place] [address] 98318- 3778 Dec, Chronic hepatitis C without hepatic coma B18.2 [place] [address] [id number], [place] [address]- 4291 Nov, [facility] [address] [place] [id number] [place] [address] 01942- 3936 Nov, [facility] [address] [place] [id number] [place] [address] 41016- 6391 Oct, [facility] [address], [place] [address]- 6177 Oct, [place] [address], [place] [address]- 2734 Sep, [facility] [address], [place] [address]- 5497 Sep, Hypothyroidism, unspecified E03.9 [facility] [address] [id number] [address]- 1194 Sep, Chronic hepatitis C without hepatic coma B18.2 [facility] [address], [place] [address]- 3531 Sep, Type 2 diabetes mellitus with hyperglycemia E11.65 ; Chronic hepatitis C without hepatic coma B18.2 ; Hypothyroidism, unspecified E03.9 ; Major depressive disorder, recurrent, unspecified F33.9 ; Essential hypertension I10 ; Mixed hyperlipidemia E78.2 and Type 2 diabetes mellitus with diabetic polyneuropathy, without long-term current use of insulin E11.42 [place] [address] [place] [id number] [place] [address] 75595- 1840 August, [place] [address] 54874- 3965 August, Breast nodule N63 [place] [address] 99924- 9866 Feb, [place] [address] 17397- 8216 Feb, Breast nodule N63 [place] [address] [place] [id number] [place] [address] 74977- 8649 Jan, Essential hypertension I10 ; Chronic hepatitis C without hepatic coma B18.2 ; Major depressive disorder, recurrent, unspecified F33.9 ; Type 2 diabetes mellitus with hyperglycemia E11.65 and Tinnitus of both ears H93.13 [place] [address] [place] [id number] [place] [address] 50598- 5015 Jan, Hypothyroidism, unspecified E03.9 [place] [address] [place] [id number] [place] [address] 21565- 0365 Jan, Hyperlipidemia LDL goal <100 272.4 ; Unspecified hypothyroidism 244.9 and Acute renal insufficiency 593.9 [place] [address] [place] [id number] [place] [address] 96476- 5666 Jan, Breast screening Z12.39 [place] [address] 26125- 2662 Oct, Breast cancer screening V76.10 [place] [address] [place] [id number] [place] [address] 68325- 3265 Sep, Chronic hepatitis C without mention of hepatic coma 070.54 and Acute renal insufficiency 593.9 [facility] [address], [place] [address]- 6528 Sep, Routine gynecological examination V72.31 ; Pap test, as part of routine gynecological examination V76.2 ; Breast cancer screening V76.10 ; Postmenopausal V49.81 and Vulvar itching 698.1 [place] [address] [place] [id number] [place] [address] 51127- 9850 Sep, Chronic hepatitis C without mention of hepatic coma 070.54 ; Acute renal insufficiency 593.9 and Hyperlipidemia LDL goal <100 272.4 [place] [address] [place] [id number] [place] [address] 36890- 0653 Sep, Chronic hepatitis C without mention of hepatic coma 070.54 ; Unspecified hypothyroidism 244.9 ; Essential hypertension, benign 401.1 ; Osteoarthritis 715.90 ; Diabetes mellitus without mention of complication, type II or unspecified type, uncontrolled 250.02 and Colon cancer screening V76.51 [place] [address] [place] [id number] [place] [address] 49233- 4149 Sep, [facility] [address] [place] [id number] [place] [address] 67429- 8373 Jul, [place] [address] [place] [id number] [place] [address] 35058- 8031 Jul, [facility] [address] [place] [id number] [place] [address] 08480- 5252 Dec, [facility] [address] [place] [id number] [place] [address] 47515- 7772 Dec, [facility] [address] [place] [id number] [place] [address] 91418- 7148 Oct, [facility] [address] [place] [id number] [place] [address] 32172- 7566 Oct, [facility] [address] [place] [address] [id number] [place] [address] 26154- 8148 Sep, [facility] [address] [id number] [place] [address] 04951- 4204 Sep, [facility] [address], [place] [address]- 5854 August, [facility] [address], [place] [address]- 9782 August, [facility] [address], [place] [address]- 0482 August, [facility] [address], [place] [address]- 2327 August, [facility] [address], [place] [address]- 0165 August, [facility] [address], [place] [address]- 9035 August, [facility] [address], [place] [address]- 0123 Mar, [facility] [address], [place] [address]- 7193 Mar, [facility] [address], [place] [address]- 5278 Mar, [facility] [address], [place] [address]- 0272 Mar, [facility] [address], [place] [address]- 2493 Feb, [facility] [id number], [place] [address]- 1507 Feb, [facility] [address], [place] [address]- 9976 Feb, [facility] [address], [place] [address]- 7747 Feb, IMMUNIZATIONS No Known Immunizations SOCIAL HISTORY Never Assessed REASON FOR VISIT questions about needing lab work PLAN OF CARE VITAL SIGNS MEDICATIONS Medication Instructions Dosage Frequency Start Date End Date Duration Status Levothyroxine Sodium 200 MCG Orally Once a day 1 tablet on an empty stomach in the morning 24h Jun, 30 day(s) Active RESULTS No Results PROCEDURES No Known procedures [...] Surgical History tubal ligation 1988 Surgical History exploratory abd. surgery Hospitalization History Hospitalization for surgery only Hospitalization History child Hospitalization History Hernia Repairs (5) Hospitalization History Tooth Bleeding/pulled August 2014 Hospitalization History Pneumonia June 2014
--- OUTSIDE RECORDS SUMMARY | 2018-07-01 17:17 | XMS REPORT ---
Author Author SONIAERIC FATIMA [facility] Address [address] [place] [address] Care Team Providers Care Tax Compliance Manager Name Role Phone ERIC SCOTT Unavailable PROBLEMS Type Condition ICD9-CM Code URK85-CA Code Onset Dates Condition Status SNOMED Code Problem Sensorineural hearing loss of both ears H90.3 Active 403383950 Problem Acquired asplenia Z90.81 Active 475349776 Problem Type 2 diabetes mellitus with diabetic polyneuropathy, without long- term current use of insulin E11.42 Active 97627933 Problem Primary osteoarthritis of both knees M17.0 Active 245736031 Problem Locking of left knee M23.92 Active [id number] Problem Elevated platelet count D47.3 Active 6738791 Problem Incisional hernia, without obstruction or gangrene K43.2 Active 255285472 Problem BMI 50.0-59.9, adult Z68.43 Active 632896159 Problem Other chronic pain G89.29 Active 09143334 Problem Major depressive disorder, recurrent, unspecified F33.9 Active 001436591 Problem Hypothyroidism, unspecified E03.9 Active 296794635 Problem Essential hypertension I10 Active 92395808 Problem Mixed hyperlipidemia E78.2 Active 554655007 Problem Chronic hepatitis C without hepatic coma B18.2 Active 071968886 Problem Type 2 diabetes mellitus with hyperglycemia E11.65 Active 72151215 Problem Primary osteoarthritis involving multiple joints M15.0 Active 162097820 ALLERGIES No Information ENCOUNTERS Encounter Location Date Diagnosis [facility] [address] [facility] [id number] [address] Dec, [facility] [id number] [address] Sep, [facility] [id number] [address] Sep, Chronic hepatitis C without hepatic coma B18.2 and Hypothyroidism, unspecified E03.9 [place] [address] [address] Sep, Essential hypertension I10 [place] [id number] [place] [address] 35853- 7441 Jun, Hypothyroidism, unspecified E03.9 [place] [id number] [place] [address] 56796- 7351 Jun, Chronic hepatitis C without hepatic coma B18.2 and Hypothyroidism, unspecified E03.9 [place] [id number] [place] [address] 85931- 6654 Jun, [place] [id number] [place] [address] 22861- 1237 Jun, BMI 45.0-49.9, adult Z68.42 ; Essential hypertension I10 ; Major depressive disorder, recurrent, unspecified F33.9 ; Elevated platelet count D47.3 ; Primary osteoarthritis involving multiple joints M15.0 ; Locking of left knee M23.92 ; Right knee buckling M25.361 and Primary osteoarthritis of both knees M17.0 [place] [id number] [place] [address] 84933- 4437 Apr, Hypothyroidism, unspecified E03.9 [place] [id number] [place] [address] 06600- 8900 Apr, Type 2 diabetes mellitus with hyperglycemia [...] immunization Z23 and BMI 50.0-59.9, adult Z68.43 [place] [id number] [place] [address] 61774- 4708 Nov, Elevated platelet count D47.3 [facility] [address] [address] Oct, Mixed hyperlipidemia E78.2 ; Essential hypertension I10 ; Major depressive disorder, recurrent, unspecified F33.9 and Type 2 diabetes mellitus with diabetic polyneuropathy, without long-term current use of insulin E11.42 [facility] [id number] [place] [address] 81631- 1305 Oct, Elevated platelet count D47.3 [facility] [id number] [place] [address] 25898- 8717 Oct, Chronic hepatitis C without hepatic coma B18.2 [place] [id number] [place] [address] 00864- 9485 Sep, [place] [id number] [place] [address] 09992- 2940 Sep, Mixed hyperlipidemia E78.2 [facility] [id number] [place] [address] 98300- 4117 Mar, [facility] [id number] [place] [address] 20014- 0045 Mar, Incisional hernia, without obstruction or gangrene K43.2 [facility] [id number] [place] [address] 76064- 9638 Feb, Chronic hepatitis C without hepatic coma B18.2 [facility] [id number] [place] [address] 87469- 4312 Jan, [facility] [id number] [place] [address] 44501- 3843 Jan, [facility] [id number] [place] [address] 53618- 9383 Jan, Type 2 diabetes mellitus with diabetic polyneuropathy, without long-term current use of insulin E11.42 ; Hypothyroidism, unspecified E03.9 ; Mixed hyperlipidemia E78.2 ; Essential hypertension I10 ; Major depressive disorder, recurrent, unspecified F33.9 ; Acquired asplenia Z90.81 ; Encounter for immunization Z23 and Chronic hepatitis C without hepatic coma B18.2 [facility] [id number] [place] [address] 15436- 0713 Jan, Type 2 diabetes mellitus with hyperglycemia E11.65 ; Mixed hyperlipidemia E78.2 and Hypothyroidism, unspecified E03.9 [facility] [id number] [place] [address] 05085- 1429 Dec, Chronic hepatitis C without hepatic coma B18.2 [facility] [id number] [place] [address] 87637- 0984 Nov, [facility] [id number] [place] [address] 94830- 1065 Nov, [facility] [id number] [place] [address] 05984- 8561 Oct, [facility] [id number] [place] [address] 21410- 1388 Oct, [facility] [id number] [place] [address] 40377- 8502 Sep, [facility] [id number] [place] [address] 36630- 6324 Sep, Hypothyroidism, unspecified E03.9 [facility] [address] [id number] [address]- 6979 Sep, Chronic hepatitis C without hepatic coma B18.2 [facility] [address], [place] [address]- [address] 16 Sep, 2015 Type 2 diabetes mellitus with hyperglycemia E11.65 ; Chronic hepatitis C without hepatic coma B18.2 ; Hypothyroidism, unspecified E03.9 ; Major depressive disorder, recurrent, unspecified F33.9 ; Essential hypertension I10 ; Mixed hyperlipidemia E78.2 and Type 2 diabetes mellitus with diabetic polyneuropathy, without long-term current use of insulin E11.42 [facility] [id number] [place] [address] 99332- 1659 August, [place] [id number] [place] [address] 46826- 3173 August, Breast nodule N63 [place] [id number] [place] [address] 77204- 3826 Feb, [place] [address] 73568- 3457 Feb, Breast nodule N63 [place] [address] 64328- 2794 Jan, Essential hypertension I10 ; Chronic hepatitis C without hepatic coma B18.2 ; Major depressive disorder, recurrent, unspecified F33.9 ; Type 2 diabetes mellitus with hyperglycemia E11.65 and Tinnitus of both ears H93.13 [place] [id number] [place] [address] 36201- 6635 Jan, Hypothyroidism, unspecified E03.[address] 39572- 9061 Jan, Hyperlipidemia LDL goal <100 272.4 ; Unspecified hypothyroidism 244.9 and Acute renal insufficiency 593.9 [place] [id number] [place] [address] 25169- 6078 Jan, Breast screening Z12.39 [place] [id number] [place] [address] 59164- 0480 Oct, Breast cancer screening V76.10 [place] [id number] [place] [address] 55374- 7293 Sep, Chronic hepatitis C without mention of hepatic coma 070.54 and Acute renal insufficiency 593.9 [place] [id number] [place] [address] 53225- 1600 Sep, Routine gynecological examination V72.31 ; Pap test, as part of routine gynecological examination V76.2 ; Breast cancer screening V76.10 ; Postmenopausal V49.81 and Vulvar itching 698.1 [facility] [address] [id number] [address]- 4663 Sep, Chronic hepatitis C without mention of hepatic coma 070.54 ; Acute renal insufficiency 593.9 and Hyperlipidemia LDL goal <100 272.4 [facility] [id number] [place] [address] 14630- 5517 Sep, Chronic hepatitis C without mention of hepatic coma 070.54 ; Unspecified hypothyroidism 244.9 ; Essential hypertension, benign 401.1 ; Osteoarthritis 715.90 ; Diabetes mellitus without mention of complication, type II or unspecified type, uncontrolled 250.02 and Colon cancer screening V76.51 [facility] [id number] [place] [address] 39863- 7804 Sep, [facility] [id number] [place] [address] 29796- 9395 Jul, [facility] [id number] [place] [address] 58991- 6424 Jul, [facility] [id number] [place] [address] 98372- 3234 Dec, [facility] [id number] [place] [address] 10497- 6752 Dec, [facility] [address] [id number] [address]- 4262 Oct, [facility] [id number] [place] [address] 29261- 1258 Oct, [facility] [id number] [place] [address] 51843- 4975 Sep, [facility] [id number] [place] [address] 24560278- 0869 Sep, [facility] [address] [id number] [address]- 4581 August, [facility] [id number] [place] [address] 91750- 4895 August, [facility] [id number] 1746 August, [facility] [id number], [place] [address]- 6595 August, [facility] [id number] 0679 August, [facility] [id number] [place] [address] 074875- 0561 August, [facility] [id number] [place] [address] 04432- 2733 Mar, [facility] [id number] [place] [address] 465230- 5601 Mar, [facility] [address], [place] [address]- 6228 Mar, [facility] [id number] [place] [address] 13342- 7169 Mar, [facility] [id number] [place] [address] 00894- 2420 Feb, [facility] [id number] [address]- 4214 Feb, [facility] [id number], [place] [address]- 9735 Feb, [facility] [id number] 3[address] Feb, IMMUNIZATIONS No Known Immunizations SOCIAL HISTORY Never Assessed REASON FOR VISIT Lab (walk-in) PLAN OF CARE VITAL SIGNS MEDICATIONS Unknown Medications RESULTS Name Result Date Reference Range TSH 2017-09-26 TSH 2.33 0.40-4.50 PROCEDURES Procedure Date Ordered Result Body Site LAB NOT BILLED BY [facility] September 26, 2017 VENIP[place]CT, ROUTINE* September 26, 2017 INSTRUCTIONS MEDICATIONS ADMINISTERED No Known Medications MEDICAL [...]
--- OUTSIDE RECORDS SUMMARY | 2018-07-01 17:17 | XMS REPORT ---
Author Author SONIAERIC FATIMA [facility] Address [address] [place] [address] Care Team Providers Care Oil Dipper Name Role Phone ERIC SCOTT Unavailable PROBLEMS Type Condition ICD9-CM Code BMF49-HC Code Onset Dates Condition Status SNOMED Code Problem Sensorineural hearing loss of both ears H90.3 Active 210672243 Problem Acquired asplenia Z90.81 Active 731975710 Problem Type 2 diabetes mellitus with diabetic polyneuropathy, without long- term current use of insulin E11.42 Active 96557999 Problem Primary osteoarthritis of both knees M17.0 Active 451219644 Problem Locking of left knee M23.92 Active 46374616384269657 Problem Elevated platelet count D47.3 Active 4038763 Problem Incisional hernia, without obstruction or gangrene K43.2 Active 601008444 Problem BMI 50.0-59.9, adult Z68.43 Active 270125129 Problem Other chronic pain G89.29 Active 44512533 Problem Major depressive disorder, recurrent, unspecified F33.9 Active 166357786 Problem Hypothyroidism, unspecified E03.9 Active 843374940 Problem Essential hypertension I10 Active 50446740 Problem Mixed hyperlipidemia E78.2 Active 989424986 Problem Chronic hepatitis C without hepatic coma B18.2 Active 197738659 Problem Type 2 diabetes mellitus with hyperglycemia E11.65 Active 19555115 Problem Primary osteoarthritis involving multiple joints M15.0 Active 802677639 ALLERGIES No Information ENCOUNTERS Encounter Location Date Diagnosis [facility] [address] [facility] [id number] [address]- 7676 Dec, [facility] [id number] [address]- 4440 Sep, [facility] [id number] [address]- 8176 Sep, Chronic hepatitis C without hepatic coma B18.2 and Hypothyroidism, unspecified E03.9 [place] [address] [address]- 9206 Sep, Essential hypertension I10 [place] [id number] [place] [address] 57687- 7420 Jun, Hypothyroidism, unspecified E03.9 [place] [address] [id number] [place] [address] 43185- 2079 Jun, Chronic hepatitis C without hepatic coma B18.2 and Hypothyroidism, unspecified E03.9 [place] [address] [id number] [place] [address] 33673- 4016 Jun, [place] [address] [place] [id number] [place] [address] 74952- 3899 Jun, BMI 45.0-49.9, adult Z68.42 ; Essential hypertension I10 ; Major depressive disorder, recurrent, unspecified F33.9 ; Elevated platelet count D47.3 ; Primary osteoarthritis involving multiple joints M15.0 ; Locking of left knee M23.92 ; Right knee buckling M25.361 and Primary osteoarthritis of both knees M17.0 [place] [address] [place] [id number] [place] [address] 22960- 3260 Apr, Hypothyroidism, unspecified E03.9 [place] [id number] [place] [address] 35284- 7965 Apr, Type 2 diabetes mellitus with hyperglycemia [...] immunization Z23 and BMI 50.0-59.9, adult Z68.43 [place] [id number] [place] [address] 73519- 2254 Nov, Elevated platelet count D47.3 [facility] [address] [address]- 9836 Oct, Mixed hyperlipidemia E78.2 ; Essential hypertension I10 ; Major depressive disorder, recurrent, unspecified F33.9 and Type 2 diabetes mellitus with diabetic polyneuropathy, without long-term current use of insulin E11.42 [facility] [id number] [place] [address] 71577- 3504 Oct, Elevated platelet count D47.3 [facility] [id number] [place] [address] 60917- 6329 Oct, Chronic hepatitis C without hepatic coma B18.2 [place] [address] [place] [id number] [place] [address] 00263- 2868 Sep, [place] [address] [place] [id number] [place] [address] 04978- 9310 Sep, Mixed hyperlipidemia E78.2 [facility] [id number] [place] [address] 07889- 0363 Mar, [facility] [address] [id number] [place] [address] 78376- 6170 Mar, Incisional hernia, without obstruction or gangrene K43.2 [facility] [id number] [place] [address] 06342- 4344 Feb, Chronic hepatitis C without hepatic coma B18.2 [facility] [id number] [place] [address] 67593- 7709 Jan, [facility] [id number] [place] [address] 12965- 0293 Jan, [facility] [id number] [place] [address] 81435- 3599 Jan, Type 2 diabetes mellitus with diabetic polyneuropathy, without long-term current use of insulin E11.42 ; Hypothyroidism, unspecified E03.9 ; Mixed hyperlipidemia E78.2 ; Essential hypertension I10 ; Major depressive disorder, recurrent, unspecified F33.9 ; Acquired asplenia Z90.81 ; Encounter for immunization Z23 and Chronic hepatitis C without hepatic coma B18.2 [facility] [id number] [place] [address] 14203- 4185 Jan, Type 2 diabetes mellitus with hyperglycemia E11.65 ; Mixed hyperlipidemia E78.2 and Hypothyroidism, unspecified E03.9 [facility] [id number] [place] [address] 53117- 5554 Dec, Chronic hepatitis C without hepatic coma B18.2 [facility] [id number] [place] [address] 46580- 8787 Nov, [facility] [id number] [place] [address] 09717- 9691 Nov, [facility] [id number] [place] [address] 85101- 0122 Oct, [facility] [id number] [place] [address] 99494- 1215 Oct, [facility] [id number] [place] [address] 86814- 9255 Sep, [facility] [id number] [place] [address] 97844- 6310 Sep, Hypothyroidism, unspecified E03.9 [facility] [address] [id number] [address]- 4792 Sep, Chronic hepatitis C without hepatic coma B18.2 [facility] [address] [address]- 1665 16 Sep, 2015 Type 2 diabetes mellitus with hyperglycemia E11.65 ; Chronic hepatitis C without hepatic coma B18.2 ; Hypothyroidism, unspecified E03.9 ; Major depressive disorder, recurrent, unspecified F33.9 ; Essential hypertension I10 ; Mixed hyperlipidemia E78.2 and Type 2 diabetes mellitus with diabetic polyneuropathy, without long-term current use of insulin E11.42 [facility] [id number] [place] [address] 61186- 3356 August, [place] [id number] [place] [address] 50836- 8555 August, Breast nodule N63 [place] [address] [place] [address] [id number] [place] [address] 59432- 4133 Feb, [place] [address] 67870- 2321 Feb, Breast nodule N63 [place] [address] 70544- 7223 Jan, Essential hypertension I10 ; Chronic hepatitis C without hepatic coma B18.2 ; Major depressive disorder, recurrent, unspecified F33.9 ; Type 2 diabetes mellitus with hyperglycemia E11.65 and Tinnitus of both ears H93.13 [place] [id number] [place] [address] 74292- 4015 Jan, Hypothyroidism, unspecified E03.[address] 63507- 8118 Jan, Hyperlipidemia LDL goal <100 272.4 ; Unspecified hypothyroidism 244.9 and Acute renal insufficiency 593.9 [place] [id number] [place] [address] 57519- 7230 Jan, Breast screening Z12.39 [place] [id number] [place] [address] 59392- 5924 Oct, Breast cancer screening V76.10 [place] [id number] [place] [address] 36112- 9581 Sep, Chronic hepatitis C without mention of hepatic coma 070.54 and Acute renal insufficiency 593.9 [place] [id number] [place] [address] 39041- 4492 Sep, Routine gynecological examination V72.31 ; Pap test, as part of routine gynecological examination V76.2 ; Breast cancer screening V76.10 ; Postmenopausal V49.81 and Vulvar itching 698.1 [facility] [address] [id number] [address]- 2363 Sep, Chronic hepatitis C without mention of hepatic coma 070.54 ; Acute renal insufficiency 593.9 and Hyperlipidemia LDL goal <100 272.4 [facility] [id number] [place] [address] 49880- 6703 Sep, Chronic hepatitis C without mention of hepatic coma 070.54 ; Unspecified hypothyroidism 244.9 ; Essential hypertension, benign 401.1 ; Osteoarthritis 715.90 ; Diabetes mellitus without mention of complication, type II or unspecified type, uncontrolled 250.02 and Colon cancer screening V76.51 [facility] [id number] [place] [address] 98121- 3428 Sep, [facility] [id number] [place] [address] 96517- 7609 Jul, [facility] [id number] [place] [address] 36582- 5125 Jul, [facility] [id number] [place] [address] 44145- 2675 Dec, [facility] [id number] [place] [address] 92941- 6310 Dec, [facility] [id number] [address]- 4744 Oct, [facility] [id number] [place] [address] 69342- 5429 Oct, [facility] [id number] [place] [address] 39764- 7296 Sep, [facility] [id number] [place] [address] 60952245- 8214 Sep, [facility] [id number] [address]- 6009 August, [facility] [id number] [place] [address] 41532- 7759 August, [facility] [id number] 5530 August, [facility] [address] [address]- 8839 August, [facility] [address] 4132 August, [facility] [id number] 2666 August, [facility] [address] [address]- 6308 Mar, [facility] [id number] [place] [address] 766153- 7262 Mar, [facility] [address] [address]- 4504 Mar, [facility] [address] [address]- 2146 Mar, [facility] [address] [address]- 5342 Feb, [facility] [address] [address]- 6171 Feb, [facility] [address] [address]- 5292 Feb, [facility] [id number]- 0837 Feb, IMMUNIZATIONS No Known Immunizations SOCIAL HISTORY Never Assessed REASON FOR VISIT Refill Request PLAN OF CARE VITAL SIGNS MEDICATIONS Medication Instructions Dosage Frequency Start Date End Date Duration Status Lisinopril 40 mg Orally Once a day 1 tablet 24h Sep, 90 days Active RESULTS No Results PROCEDURES No Known [...]
--- OUTSIDE RECORDS SUMMARY | 2018-07-01 17:17 | XMS REPORT ---
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 Name Role Phone ERIC SCOTT Unavailable PROBLEMS Type Condition ICD9-CM Code JIL53-DC Code Onset Dates Condition Status SNOMED Code Problem Sensorineural hearing loss of both ears H90.3 Active 069694963 Problem Acquired asplenia Z90.81 Active 105783617 Problem Type 2 diabetes mellitus with diabetic polyneuropathy, without long- term current use of insulin E11.42 Active 61710000 Problem Primary osteoarthritis of both knees M17.0 Active 762447148 Problem Locking of left knee M23.92 Active 30753570775890551 Problem Elevated platelet count D47.3 Active 7532252 Problem Incisional hernia, without obstruction or gangrene K43.2 Active 074111818 Problem BMI 50.0-59.9, adult Z68.43 Active 781825828 Problem Other chronic pain G89.29 Active 85301641 Problem Major depressive disorder, recurrent, unspecified F33.9 Active 683093972 Problem Hypothyroidism, unspecified E03.9 Active 509509785 Problem Essential hypertension I10 Active 31768663 Problem Mixed hyperlipidemia E78.2 Active 463969717 Problem Chronic hepatitis C without hepatic coma B18.2 Active 956084677 Problem Type 2 diabetes mellitus with hyperglycemia E11.65 Active 17678243 Problem Primary osteoarthritis involving multiple joints M15.0 Active 619140977 ALLERGIES No Information ENCOUNTERS Encounter Location Date Diagnosis [facility] [id number], [place] [address] Jan, [facility] [id number], [place] [address] 2579 Jan, [facility] [id number], [place] [address] 6974 Jan, Hypothyroidism, unspecified E03.9 [place] [address], [place] [address] Sep, [place] [address], [place] [address] 0134 Sep, Chronic hepatitis C without hepatic coma B18.2 and Hypothyroidism, unspecified E03.9 [place] [address], [place] [address] 8808 Sep, Essential hypertension I10 [place] [id number] [place] [address] 28202- 6970 Jun, Hypothyroidism, unspecified E03.9 [place] [id number] [place] [address] 61162- 4980 Jun, Chronic hepatitis C without hepatic coma B18.2 and Hypothyroidism, unspecified E03.9 [place] [address], [place] [address] 4711 Jun, [place] [address], [place] [address] 9270 Jun, BMI 45.0-49.9, adult Z68.42 ; Essential hypertension I10 ; Major depressive disorder, recurrent, unspecified F33.9 ; Elevated platelet count D47.3 ; Primary osteoarthritis involving multiple joints M15.0 ; Locking of left knee M23.92 ; Right knee buckling M25.361 and Primary osteoarthritis of both knees M17.0 [place] [id number], [place] [address] 0793 Apr, Hypothyroidism, unspecified E03.9 [place] [id number], [place] [address] 8618 Apr, Type 2 diabetes mellitus with hyperglycemia [...] immunization Z23 and BMI 50.0-59.9, adult Z68.43 [place] [id number] [place] [address] 31681- 2769 Nov, Elevated platelet count D47.3 [place] [id number] [place] [address] 77484- 0204 Oct, Mixed hyperlipidemia E78.2 ; Essential hypertension I10 ; Major depressive disorder, recurrent, unspecified F33.9 and Type 2 diabetes mellitus with diabetic polyneuropathy, without long-term current use of insulin E11.42 [place] [id number] [place] [address] 19359- 2186 Oct, Elevated platelet count D47.3 [place] [id number] [place] [address] 98394- 4604 Oct, Chronic hepatitis C without hepatic coma B18.2 [place] [id number] [place] [address] 86396- 5360 Sep, [place] [address] 99878- 4620 Sep, Mixed hyperlipidemia E78.2 [place] [id number] [place] [address] 92357- 2219 Mar, [place] [id number] [place] [address] 09830- 4239 Mar, Incisional hernia, without obstruction or gangrene K43.2 [place] [id number] [place] [address] 52816- 1820 Feb, Chronic hepatitis C without hepatic coma B18.2 [place] [id number] [place] [address] 28016- 8424 Jan, [place] [id number] [place] [address] 58598- 6349 Jan, [place] [id number], [place] [address] 4816 Jan, Type 2 diabetes mellitus with diabetic polyneuropathy, without long-term current use of insulin E11.42 ; Hypothyroidism, unspecified E03.9 ; Mixed hyperlipidemia E78.2 ; Essential hypertension I10 ; Major depressive disorder, recurrent, unspecified F33.9 ; Acquired asplenia Z90.81 ; Encounter for immunization Z23 and Chronic hepatitis C without hepatic coma B18.2 [facility] [id number] [place] [address] 52832- 9010 Jan, Type 2 diabetes mellitus with hyperglycemia E11.65 ; Mixed hyperlipidemia E78.2 and Hypothyroidism, unspecified E03.9 [place] [id number] [place] [address] 66024- 9638 Dec, Chronic hepatitis C without hepatic coma B18.2 [place] [id number], [place] [address] 3847 Nov, [facility] [id number] [place] [address] 47985- 3264 Nov, [facility] [id number] [place] [address] 76061- 8108 Oct, [facility] [address], [place] [address]- 3393 Oct, [place] [address], [place] [address]- 4646 Sep, [facility] [address], [place] [address]- 3844 Sep, Hypothyroidism, unspecified E03.9 [facility] [id number], [place] [address]- 8183 Sep, Chronic hepatitis C without hepatic coma B18.2 [facility] [address], [place] [address]- 0509 Sep, Type 2 diabetes mellitus with hyperglycemia E11.65 ; Chronic hepatitis C without hepatic coma B18.2 ; Hypothyroidism, unspecified E03.9 ; Major depressive disorder, recurrent, unspecified F33.9 ; Essential hypertension I10 ; Mixed hyperlipidemia E78.2 and Type 2 diabetes mellitus with diabetic polyneuropathy, without long-term current use of insulin E11.42 [place] [id number] [place] [address] 32780- 2595 August, [place] [address] 86875- 3296 August, Breast nodule N63 [place] [address] 49864- 8427 Feb, [place] [address] 88322- 6593 Feb, Breast nodule N63 [place] [id number] [place] [address] 32017- 8837 Jan, Essential hypertension I10 ; Chronic hepatitis C without hepatic coma B18.2 ; Major depressive disorder, recurrent, unspecified F33.9 ; Type 2 diabetes mellitus with hyperglycemia E11.65 and Tinnitus of both ears H93.13 [place] [id number] [place] [address] 49210- 5238 Jan, Hypothyroidism, unspecified E03.9 [place] [id number] [place] [address] 45008- 1055 Jan, Hyperlipidemia LDL goal <100 272.4 ; Unspecified hypothyroidism 244.9 and Acute renal insufficiency 593.9 [place] [id number] [place] [address] 64011- 8957 Jan, Breast screening Z12.39 [place] [address] 12626- 5359 Oct, Breast cancer screening V76.10 [place] [id number] [place] [address] 64982- 6729 Sep, Chronic hepatitis C without mention of hepatic coma 070.54 and Acute renal insufficiency 593.9 [facility] [address], [place] [address]- 7788 Sep, Routine gynecological examination V72.31 ; Pap test, as part of routine gynecological examination V76.2 ; Breast cancer screening V76.10 ; Postmenopausal V49.81 and Vulvar itching 698.1 [place] [id number] [place] [address] 80238- 5259 Sep, Chronic hepatitis C without mention of hepatic coma 070.54 ; Acute renal insufficiency 593.9 and Hyperlipidemia LDL goal <100 272.4 [place] [id number] [place] [address] 15566- 1269 Sep, Chronic hepatitis C without mention of hepatic coma 070.54 ; Unspecified hypothyroidism 244.9 ; Essential hypertension, benign 401.1 ; Osteoarthritis 715.90 ; Diabetes mellitus without mention of complication, type II or unspecified type, uncontrolled 250.02 and Colon cancer screening V76.51 [place] [id number] [place] [address] 53060- 0775 Sep, [facility] [id number] [place] [address] 54710- 5377 Jul, [place] [id number] [place] [address] 11746- 2472 Jul, [facility] [id number] [place] [address] 09885- 5751 Dec, [facility] [id number] [place] [address] 54123- 1524 Dec, [facility] [id number] [place] [address] 19187- 5879 Oct, [facility] [id number] [place] [address] 15433- 1352 Oct, [facility] [id number] [place] [address] 83784- 5626 Sep, [facility] [id number] [place] [address] 27997- 6711 Sep, [facility] [address], [place] [address]- 3115 August, [facility] [address], [place] [address]- 0679 August, [facility] [address], [place] [address]- 1544 August, [facility] [address], [place] [address]- 2953 August, [facility] [id number] [place] [address] 40811- 7413 August, [facility] [address], [place] [address]- 2076 August, [facility] [id number] [place] [address] 91561- 7980 Mar, [facility] [address], [place] [address]- 8132 Mar, [facility] [address], [place] [address]- 3080 Mar, [facility] [address], [place] [address]- 4749 Mar, [facility] [address], [place] [address]- 3046 Feb, [facility] [address], [place] [address]- 3318 Feb, [facility] [address], [place] [address]- 9907 Feb, [facility] [address], [place] [address]- 8941 Feb, IMMUNIZATIONS No Known Immunizations SOCIAL HISTORY Never Assessed REASON FOR VISIT TCM call PLAN OF CARE VITAL SIGNS MEDICATIONS [...]
--- OUTSIDE RECORDS SUMMARY | 2018-07-01 17:17 | XMS REPORT ---
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 Driver Operator Helper Name Role Phone ERIC SCOTT Unavailable PROBLEMS Type Condition ICD9-CM Code PEU52-UI Code Onset Dates Condition Status SNOMED Code Problem Sensorineural hearing loss of both ears H90.3 Active 703972675 Problem Acquired asplenia Z90.81 Active 163423504 Problem Type 2 diabetes mellitus with diabetic polyneuropathy, without long- term current use of insulin E11.42 Active 89902929 Problem Primary osteoarthritis of both knees M17.0 Active 869388774 Problem Locking of left knee M23.92 Active 26598560395065953 Problem Elevated platelet count D47.3 Active 0553858 Problem Incisional hernia, without obstruction or gangrene K43.2 Active 168898482 Problem BMI 50.0-59.9, adult Z68.43 Active 095527747 Problem Other chronic pain G89.29 Active 68020052 Problem Major depressive disorder, recurrent, unspecified F33.9 Active 789374624 Problem Hypothyroidism, unspecified E03.9 Active 838858708 Problem Essential hypertension I10 Active 76519163 Problem Mixed hyperlipidemia E78.2 Active 708493148 Problem Chronic hepatitis C without hepatic coma B18.2 Active 280709679 Problem Type 2 diabetes mellitus with hyperglycemia E11.65 Active 28939877 Problem Primary osteoarthritis involving multiple joints M15.0 Active 472487860 ALLERGIES No Information ENCOUNTERS Encounter Location Date Diagnosis [facility] [address] [facility] [id number] [address] 6319 Dec, [facility] [id number] [address]- 3795 Sep, [facility] [id number] [address]- 9037 Sep, Chronic hepatitis C without hepatic coma B18.2 and Hypothyroidism, unspecified E03.9 [place] [address], [place] [address]- 4741 Sep, Essential hypertension I10 [place] [id number] [place] [address] 75033- 5656 Jun, Hypothyroidism, unspecified E03.9 [place] [id number] [place] [address] 77434- 7819 Jun, Chronic hepatitis C without hepatic coma B18.2 and Hypothyroidism, unspecified E03.9 [place] [id number] [place] [address] 01837- 9396 Jun, [place] [id number] [place] [address] 81416- 5678 Jun, BMI 45.0-49.9, adult Z68.42 ; Essential hypertension I10 ; Major depressive disorder, recurrent, unspecified F33.9 ; Elevated platelet count D47.3 ; Primary osteoarthritis involving multiple joints M15.0 ; Locking of left knee M23.92 ; Right knee buckling M25.361 and Primary osteoarthritis of both knees M17.0 [place] [id number] [place] [address] 64137- 3446 Apr, Hypothyroidism, unspecified E03.9 [place] [id number] [place] [address] 35379- 0841 Apr, Type 2 diabetes mellitus with hyperglycemia [...] immunization Z23 and BMI 50.0-59.9, adult Z68.43 [place] [id number] [place] [address] 51424- 0682 Nov, Elevated platelet count D47.3 [facility] [address], [place] [address]- 1676 Oct, Mixed hyperlipidemia E78.2 ; Essential hypertension I10 ; Major depressive disorder, recurrent, unspecified F33.9 and Type 2 diabetes mellitus with diabetic polyneuropathy, without long-term current use of insulin E11.42 [facility] [id number] [place] [address] 36976- 6526 Oct, Elevated platelet count D47.3 [facility] [id number] [place] [address] 99303- 3293 Oct, Chronic hepatitis C without hepatic coma B18.2 [place] [id number] [place] [address] 10931- 6818 Sep, [place] [id number] [place] [address] 46420- 8462 Sep, Mixed hyperlipidemia E78.2 [facility] [id number] [place] [address] 68577- 9208 Mar, [facility] [id number] [place] [address] 50441- 1364 Mar, Incisional hernia, without obstruction or gangrene K43.2 [facility] [id number] [place] [address] 47340- 5726 Feb, Chronic hepatitis C without hepatic coma B18.2 [facility] [id number] [place] [address] 33676- 9695 Jan, [facility] [id number] [place] [address] 13030- 8347 Jan, [facility] [id number] [place] [address] 96633- 4391 Jan, Type 2 diabetes mellitus with diabetic polyneuropathy, without long-term current use of insulin E11.42 ; Hypothyroidism, unspecified E03.9 ; Mixed hyperlipidemia E78.2 ; Essential hypertension I10 ; Major depressive disorder, recurrent, unspecified F33.9 ; Acquired asplenia Z90.81 ; Encounter for immunization Z23 and Chronic hepatitis C without hepatic coma B18.2 [facility] [id number] [place] [address] 63630- 8700 Jan, Type 2 diabetes mellitus with hyperglycemia E11.65 ; Mixed hyperlipidemia E78.2 and Hypothyroidism, unspecified E03.9 [facility] [id number] [place] [address] 56622- 9287 Dec, Chronic hepatitis C without hepatic coma B18.2 [facility] [id number] [place] [address] 41082- 7195 Nov, [facility] [id number] [place] [address] 28934- 9617 Nov, [facility] [id number] [place] [address] 83787- 0643 Oct, [facility] [id number] [place] [address] 77043- 0818 Oct, [facility] [id number] [place] [address] 67878- 7488 Sep, [facility] [id number] [place] [address] 29168- 4962 Sep, Hypothyroidism, unspecified E03.9 [facility] [id number] [address]- 1212 Sep, Chronic hepatitis C without hepatic coma B18.2 [facility] [address], [place] [address]- 8046 16 Sep, 2015 Type 2 diabetes mellitus with hyperglycemia E11.65 ; Chronic hepatitis C without hepatic coma B18.2 ; Hypothyroidism, unspecified E03.9 ; Major depressive disorder, recurrent, unspecified F33.9 ; Essential hypertension I10 ; Mixed hyperlipidemia E78.2 and Type 2 diabetes mellitus with diabetic polyneuropathy, without long-term current use of insulin E11.42 [facility] [id number] [place] [address] 11112- 3089 August, [place] [id number] [place] [address] 77770- 8124 August, Breast nodule N63 [place] [id number] [place] [address] 76142- 4394 Feb, [place] [address] 42391- 3069 Feb, Breast nodule N63 [place] [address] 73360- 1631 Jan, Essential hypertension I10 ; Chronic hepatitis C without hepatic coma B18.2 ; Major depressive disorder, recurrent, unspecified F33.9 ; Type 2 diabetes mellitus with hyperglycemia E11.65 and Tinnitus of both ears H93.13 [place] [id number] [place] [address] 29602- 8093 Jan, Hypothyroidism, unspecified E03.[address] 25425- 7681 Jan, Hyperlipidemia LDL goal <100 272.4 ; Unspecified hypothyroidism 244.9 and Acute renal insufficiency 593.9 [place] [id number] [place] [address] 02124- 7810 Jan, Breast screening Z12.39 [place] [id number] [place] [address] 44605- 7866 Oct, Breast cancer screening V76.10 [place] [id number] [place] [address] 93755- 0910 Sep, Chronic hepatitis C without mention of hepatic coma 070.54 and Acute renal insufficiency 593.9 [place] [id number] [place] [address] 26736- 4758 Sep, Routine gynecological examination V72.31 ; Pap test, as part of routine gynecological examination V76.2 ; Breast cancer screening V76.10 ; Postmenopausal V49.81 and Vulvar itching 698.1 [facility] [address] [address]- 2068 Sep, Chronic hepatitis C without mention of hepatic coma 070.54 ; Acute renal insufficiency 593.9 and Hyperlipidemia LDL goal <100 272.4 [facility] [id number] [place] [address] 57511- 2492 Sep, Chronic hepatitis C without mention of hepatic coma 070.54 ; Unspecified hypothyroidism 244.9 ; Essential hypertension, benign 401.1 ; Osteoarthritis 715.90 ; Diabetes mellitus without mention of complication, type II or unspecified type, uncontrolled 250.02 and Colon cancer screening V76.51 [facility] [id number] [place] [address] 73158- 2903 Sep, [facility] [id number] [place] [address] 97551- 7293 Jul, [facility] [id number] [place] [address] 48023- 4624 Jul, [facility] [id number] [place] [address] 20776- 8002 Dec, [facility] [id number] [place] [address] 57230- 0678 Dec, [facility] [address] [address]- 5186 Oct, [facility] [id number] [place] [address] 88910- 7577 Oct, [facility] [id number] [place] [address] 04262- 0174 Sep, [facility] [id number] [place] [address] 45173396- 7079 Sep, [facility] [address] [address]- 4855 August, [facility] [id number] [place] [address] 05920- 9409 August, [facility] [id number]- 4522 August, [facility] [address] 9651 August, [facility] [address] 7646 August, [facility] [id number] 5074 August, [facility] [address] 6214 Mar, [facility] [id number] [place] [address] 665582- 7556 Mar, [facility] [address] [address]- 3210 Mar, [facility] [address]- 8621 Mar, [facility] [address] 5820 Feb, [facility] [address] 6809 Feb, [facility] [address] [address]- 0399 Feb, [facility] [id number], [place] [address]- 0909 Feb, IMMUNIZATIONS No Known Immunizations SOCIAL HISTORY Never Assessed REASON FOR VISIT Lab results PLAN OF CARE VITAL SIGNS MEDICATIONS Medication [...]
--- OUTSIDE RECORDS SUMMARY | 2018-07-01 17:18 | XMS REPORT ---
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 Contact Wheel Name Role Phone NICK SCOTTY Unavailable PROBLEMS Type Condition ICD9-CM Code [id number] Code Onset Dates Condition Status SNOMED Code Problem Sensorineural hearing loss of both ears H90.3 Active 601223939 Problem Acquired asplenia Z90.81 Active 373631882 Problem Type 2 diabetes mellitus with diabetic polyneuropathy, without long- term current use of insulin E11.42 Active 34710864 Problem Primary osteoarthritis of both knees M17.0 Active 690194599 Problem Locking of left knee M23.92 Active 42768200005972702 Problem Elevated platelet count D47.3 Active 3884668 Problem Incisional hernia, without obstruction or gangrene K43.2 Active 401150774 Problem BMI 50.0-59.9, adult Z68.43 Active 265675532 Problem Other chronic pain G89.29 Active 26000153 Problem Major depressive disorder, recurrent, unspecified F33.9 Active 366631325 Problem Hypothyroidism, unspecified E03.9 Active 602550043 Problem Essential hypertension I10 Active 18976018 Problem Mixed hyperlipidemia E78.2 Active 768770970 Problem Chronic hepatitis C without hepatic coma B18.2 Active 969983215 Problem Type 2 diabetes mellitus with hyperglycemia E11.65 Active 09139998 Problem Primary osteoarthritis involving multiple joints M15.0 Active 953661308 ALLERGIES No Information ENCOUNTERS Encounter Location Date Diagnosis [facility] [id number] [address] Sep, [facility] [id number] [place] [address] 68474- 2215 Sep, Chronic hepatitis C without hepatic coma B18.2 and Hypothyroidism, unspecified E03.9 [facility] [id number] [place] [address] 13846- 9017 Sep, Essential hypertension I10 [id number] [place] [address] 20382- 8050 Jun, Hypothyroidism, unspecified E03.9 [place] [id number] [place] [address] 80790- 4929 Jun, Chronic hepatitis C without hepatic coma B18.2 and Hypothyroidism, unspecified E03.9 [facility] [facility] [id number] [place] [address] 07422- 8721 Jun, [facility] [id number] [place] [address] 82035- 9432 Jun, BMI 45.0-49.9, adult Z68.42 ; Essential hypertension I10 ; Major depressive disorder, recurrent, unspecified F33.9 ; Elevated platelet count D47.3 ; Primary osteoarthritis involving multiple joints M15.0 ; Locking of left knee M23.92 ; Right knee buckling M25.361 and Primary osteoarthritis of both knees M17.0 [place] [id number] [place] [address] 46255- 1532 Apr, Hypothyroidism, unspecified E03.9 [place] [address] [place] [address] 08228- 9248 Apr, Type 2 diabetes mellitus with hyperglycemia [...] immunization Z23 and BMI 50.0-59.9, adult Z68.43 [place] [address] [place] [address] 76994- 7742 Nov, Elevated platelet count D47.3 [facility] [facility] [id number] [place] [address] 04348- 8032 Oct, Mixed hyperlipidemia E78.2 ; Essential hypertension I10 ; Major depressive disorder, recurrent, unspecified F33.9 and Type 2 diabetes mellitus with diabetic polyneuropathy, without long-term current use of insulin E11.42 [place] [address], [place] [address] 4112 Oct, Elevated platelet count D47.3 [facility] [facility] [id number] [place] [address] 25882- 4353 Oct, Chronic hepatitis C without hepatic coma B18.2 [facility] [id number] [place] [address] 63047- 4530 Sep, [place] [id number] [place] [address] 44840- 0424 Sep, Mixed hyperlipidemia E78.2 [facility] [id number] [place] [address] 78404- 3092 Mar, [facility] [facility] [id number] [place] [address] 68933- 7257 Mar, Incisional hernia, without obstruction or gangrene K43.2 [facility] [facility] [id number] [place] [address] 66639- 7864 Feb, Chronic hepatitis C without hepatic coma B18.2 [facility] [id number], [place] [address]- 8433 Jan, [facility] [facility] [id number] [place] [address] 09630- 7347 Jan, [place] [address] [place] [address] 27316- 9034 Jan, Type 2 diabetes mellitus with diabetic polyneuropathy, without long-term current use of insulin E11.42 ; Hypothyroidism, unspecified E03.9 ; Mixed hyperlipidemia E78.2 ; Essential hypertension I10 ; Major depressive disorder, recurrent, unspecified F33.9 ; Acquired asplenia Z90.81 ; Encounter for immunization Z23 and Chronic hepatitis C without hepatic coma B18.2 [facility] [address], [place] [address]- 8788 Jan, Type 2 diabetes mellitus with hyperglycemia E11.65 ; Mixed hyperlipidemia E78.2 and Hypothyroidism, unspecified E03.9 [facility] [address], [place] [address]- 8089 Dec, Chronic hepatitis C without hepatic coma B18.2 [facility] [id number], [place] [address]- 5422 Nov, [facility] [address], [place] [address]- 2652 Nov, [facility] [address], [place] [address]- 0861 Oct, [facility] [address], [place] [address]- 6360 Oct, [facility] [address], [place] [address]- 2573 Sep, [facility] [address], [place] [address]- 4769 Sep, Hypothyroidism, unspecified E03.9 [facility] [address], [place] [address]- 1860 Sep, Chronic hepatitis C without hepatic coma B18.2 [facility] [address], [place] [address]- 0783 Sep, Type 2 diabetes mellitus with hyperglycemia E11.65 ; Chronic hepatitis C without hepatic coma B18.2 ; Hypothyroidism, unspecified E03.9 ; Major depressive disorder, recurrent, unspecified F33.9 ; Essential hypertension I10 ; Mixed hyperlipidemia E78.2 and Type 2 diabetes mellitus with diabetic polyneuropathy, without long-term current use of insulin E11.42 [facility] [address], [place] [address]- 1010 August, [facility] [id number] [place] [address] 89293- 6103 August, Breast nodule N63 [place] [address] 60687- 6491 Feb, [place] [address] 38552- 8159 Feb, Breast nodule N63 [place] [address] 81226- 6121 Jan, Essential hypertension I10 ; Chronic hepatitis C without hepatic coma B18.2 ; Major depressive disorder, recurrent, unspecified F33.9 ; Type 2 diabetes mellitus with hyperglycemia E11.65 and Tinnitus of both ears H93.13 [place] [address] 22206- 7320 Jan, Hypothyroidism, unspecified E03.9 [place] [address] 71404- 1188 Jan, Hyperlipidemia LDL goal <100 272.4 ; Unspecified hypothyroidism 244.9 and Acute renal insufficiency 593.9 [place] [address] 62976- 5129 Jan, Breast screening Z12.39 [place] [address] 57623- 3606 Oct, Breast cancer screening V76.10 [place] [address] 24715- 5632 Sep, Chronic hepatitis C without mention of hepatic coma 070.54 and Acute renal insufficiency 593.9 [facility] [id number] [place] [address] 89328- 5156 Sep, Routine gynecological examination V72.31 ; Pap test, as part of routine gynecological examination V76.2 ; Breast cancer screening V76.10 ; Postmenopausal V49.81 and Vulvar itching 698.[address] 82954- 4150 Sep, Chronic hepatitis C without mention of hepatic coma 070.54 ; Acute renal insufficiency 593.9 and Hyperlipidemia LDL goal <100 272.4 [facility] [id number] [place] [address] 020162- 4055 Sep, Chronic hepatitis C without mention of hepatic coma 070.54 ; Unspecified hypothyroidism 244.9 ; Essential hypertension, benign 401.1 ; Osteoarthritis 715.90 ; Diabetes mellitus without mention of complication, type II or unspecified type, uncontrolled 250.02 and Colon cancer screening V76.51 [facility] [id number], [place] [address]- 6703 Sep, [facility] [id number] [place] [address] 96105- 5522 Jul, [facility] [id number] [place] [address] 688325- 2336 Jul, [facility] [id number] [place] [address] 45850- 0838 Dec, [facility] [id number], [place] [address]- 0613 Dec, [facility] [id number] [place] [address] 64806- 6779 Oct, [facility] [address], [place] [address]- 1487 Oct, [facility] [address], [place] [address]- 0181 Sep, [facility] [address] [address] Sep, [facility] [id number] 6267 August, [facility] [address] 3561 August, [facility] [id number] [place] [address] 96001- 7306 August, [facility] [id number], [place] [address]- 3297 August, [facility] [id number] [place] [address] 07396- 8780 August, [facility] [address], [place] [address]- 5075 August, [facility] [id number] [place] [address] 87579- 7392 Mar, [facility] [id number] [place] [address] 84042- 5433 Mar, [facility] [id number] [place] [address] 06039- 9754 Mar, [facility] [id number] [place] [address] 87754- 5986 Mar, [facility] [id number] [place] [address] 55983- 8201 Feb, [facility] [address], [place] [address]- 2522 Feb, [facility] [address], [place] [address]- 9676 Feb, [facility] [address], [place] [address]- 4845 Feb, IMMUNIZATIONS No Known Immunizations SOCIAL HISTORY Never Assessed REASON FOR VISIT Ortho Referral PLAN OF CARE VITAL SIGNS MEDICATIONS Unknown [...]
--- OUTSIDE RECORDS SUMMARY | 2018-07-01 17:18 | XMS REPORT ---
Author Author SONIAERIC FATIMA [facility] Address [address] [place] [address] Care Team Providers Care Specialty Person Name Role Phone NICK SCOTTY Unavailable PROBLEMS Type Condition ICD9-CM Code OSG22-RT Code Onset Dates Condition Status SNOMED Code Problem Sensorineural hearing loss of both ears H90.3 Active 133440073 Problem Acquired asplenia Z90.81 Active 427768273 Problem Type 2 diabetes mellitus with diabetic polyneuropathy, without long- term current use of insulin E11.42 Active 98530433 Problem Primary osteoarthritis of both knees M17.0 Active 890441087 Problem Locking of left knee M23.92 Active 99140483931488823 Problem Elevated platelet count D47.3 Active 1380099 Problem Incisional hernia, without obstruction or gangrene K43.2 Active 806172995 Problem BMI 50.0-59.9, adult Z68.43 Active 412891865 Problem Other chronic pain G89.29 Active 66221284 Problem Major depressive disorder, recurrent, unspecified F33.9 Active 743338354 Problem Hypothyroidism, unspecified E03.9 Active 889661752 Problem Essential hypertension I10 Active 01146170 Problem Mixed hyperlipidemia E78.2 Active 629715768 Problem Chronic hepatitis C without hepatic coma B18.2 Active 397313308 Problem Type 2 diabetes mellitus with hyperglycemia E11.65 Active 51128877 Problem Primary osteoarthritis involving multiple joints M15.0 Active 284450465 ALLERGIES No Information ENCOUNTERS Encounter Location Date Diagnosis [facility] [id number], [place] [address]- 3855 Sep, [facility] [address] [place] [address] 06535- 5298 Sep, Chronic hepatitis C without hepatic coma B18.2 and Hypothyroidism, unspecified E03.9 [facility] [id number] [place] [address] 16533- 2852 Sep, Essential hypertension I10 [address] [address] [place] [address] 75500- 3547 Jun, Hypothyroidism, unspecified E03.9 [place] [address] [place] [address] 55024- 6153 Jun, Chronic hepatitis C without hepatic coma B18.2 and Hypothyroidism, unspecified E03.9 [place] [id number] [place] [address] 08059- 2137 Jun, [place] [facility] [id number] [place] [address] 00989- 0823 Jun, BMI 45.0-49.9, adult Z68.42 ; Essential hypertension I10 ; Major depressive disorder, recurrent, unspecified F33.9 ; Elevated platelet count D47.3 ; Primary osteoarthritis involving multiple joints M15.0 ; Locking of left knee M23.92 ; Right knee buckling M25.361 and Primary osteoarthritis of both knees M17.0 [place] [address] [place] [address] 99653- 0592 Apr, Hypothyroidism, unspecified E03.9 [place] [address] [place] [address] 20583- 6632 Apr, Type 2 diabetes mellitus with hyperglycemia [...] immunization Z23 and BMI 50.0-59.9, adult Z68.43 [place] [address] [place] [address] 15197- 9402 Nov, Elevated platelet count D47.3 [place] [id number] [place] [address] 51076- 9520 Oct, Mixed hyperlipidemia E78.2 ; Essential hypertension I10 ; Major depressive disorder, recurrent, unspecified F33.9 and Type 2 diabetes mellitus with diabetic polyneuropathy, without long-term current use of insulin E11.42 [place] [address], [place] [address]- 5740 Oct, Elevated platelet count D47.3 [place] [id number] [place] [address] 45133- 1465 Oct, Chronic hepatitis C without hepatic coma B18.2 [place] [id number] [place] [address] 44089- 6510 Sep, [place] [id number] [place] [address] 83694- 5959 Sep, Mixed hyperlipidemia E78.2 [place] [id number] [place] [address] 11057- 0070 Mar, [place] [id number] [place] [address] 32775- 2659 Mar, Incisional hernia, without obstruction or gangrene K43.2 [place] [id number] [place] [address] 18990- 6452 Feb, Chronic hepatitis C without hepatic coma B18.2 [place] [facility] [id number], [place] [address]- 2133 Jan, [place] [id number] [place] [address] 25181- 4632 Jan, [place] [address] [place] [address] 71776- 4725 Jan, Type 2 diabetes mellitus with diabetic polyneuropathy, without long-term current use of insulin E11.42 ; Hypothyroidism, unspecified E03.9 ; Mixed hyperlipidemia E78.2 ; Essential hypertension I10 ; Major depressive disorder, recurrent, unspecified F33.9 ; Acquired asplenia Z90.81 ; Encounter for immunization Z23 and Chronic hepatitis C without hepatic coma B18.2 [facility] [address], [place] [address]- 9385 Jan, Type 2 diabetes mellitus with hyperglycemia E11.65 ; Mixed hyperlipidemia E78.2 and Hypothyroidism, unspecified E03.9 [facility] [address], [place] [address]- 7733 Dec, Chronic hepatitis C without hepatic coma B18.2 [facility] [id number], [place] [address]- 2921 Nov, [facility] [address], [place] [address]- 8234 Nov, [facility] [address], [place] [address]- 7800 Oct, [facility] [address], [place] [address]- 8276 Oct, [facility] [address], [place] [address]- 6152 Sep, [facility] [address], [place] [address]- 3597 Sep, Hypothyroidism, unspecified E03.9 [facility] [address], [place] [address]- 0802 Sep, Chronic hepatitis C without hepatic coma B18.2 [facility] [address], [place] [address]- 5813 Sep, Type 2 diabetes mellitus with hyperglycemia E11.65 ; Chronic hepatitis C without hepatic coma B18.2 ; Hypothyroidism, unspecified E03.9 ; Major depressive disorder, recurrent, unspecified F33.9 ; Essential hypertension I10 ; Mixed hyperlipidemia E78.2 and Type 2 diabetes mellitus with diabetic polyneuropathy, without long-term current use of insulin E11.42 [facility] [address], [place] [address]- 0965 August, [facility] [id number] [place] [address] 90640- 1786 August, Breast nodule N63 [place] [address] 59845- 4389 Feb, [place] [address] 77710- 1490 Feb, Breast nodule N63 [place] [address] 68657- 0763 Jan, Essential hypertension I10 ; Chronic hepatitis C without hepatic coma B18.2 ; Major depressive disorder, recurrent, unspecified F33.9 ; Type 2 diabetes mellitus with hyperglycemia E11.65 and Tinnitus of both ears H93.13 [place] [address] 52136- 9289 Jan, Hypothyroidism, unspecified E03.9 [place] [address] 94257- 4908 Jan, Hyperlipidemia LDL goal <100 272.4 ; Unspecified hypothyroidism 244.9 and Acute renal insufficiency 593.9 [place] [address] 66949- 0753 Jan, Breast screening Z12.39 [place] [address] 30663- 7353 Oct, Breast cancer screening V76.10 [place] [address] 99480- 5212 Sep, Chronic hepatitis C without mention of hepatic coma 070.54 and Acute renal insufficiency 593.9 [place] [id number] [place] [address] 58828- 6291 Sep, Routine gynecological examination V72.31 ; Pap test, as part of routine gynecological examination V76.2 ; Breast cancer screening V76.10 ; Postmenopausal V49.81 and Vulvar itching 698.[address] 36289- 8342 Sep, Chronic hepatitis C without mention of hepatic coma 070.54 ; Acute renal insufficiency 593.9 and Hyperlipidemia LDL goal <100 272.4 [facility] [id number] [place] [address] 474825- 8209 Sep, Chronic hepatitis C without mention of hepatic coma 070.54 ; Unspecified hypothyroidism 244.9 ; Essential hypertension, benign 401.1 ; Osteoarthritis 715.90 ; Diabetes mellitus without mention of complication, type II or unspecified type, uncontrolled 250.02 and Colon cancer screening V76.51 [facility] [address], [place] [address]- 6365 Sep, [facility] [id number] [place] [address] 59283- 7974 Jul, [facility] [id number] [place] [address] 395503- 7972 Jul, [facility] [id number] [place] [address] 14295- 1292 Dec, [facility] [address], [place] [address]- 0614 Dec, [facility] [id number] [place] [address] 11828- 0065 Oct, [facility] [address], [place] [address]- 1927 Oct, [facility] [address] [place] [address]- 4515 Sep, [facility] [address] 4015 Sep, [facility] [address]- 3107 August, [facility] [address] 3161 August, [facility] [id number] [place] [address] 37485- 3237 August, [facility] [id number], [place] [address]- 4936 August, [facility] [address] [place] [address] 55510- 8677 August, [facility] [address], [place] [address]- 2290 August, [facility] [id number] [place] [address] 30540- 2326 Mar, [facility] [address] [place] [address] 73646- 7014 Mar, [facility] [id number] [place] [address] 32920- 3397 Mar, [facility] [id number] [place] [address] 83389- 0224 Mar, [facility] [id number] [place] [address] 26210- 6230 Feb, [facility] [address], [place] [address]- 2802 Feb, [facility] [address], [place] [address]- 4460 Feb, [facility] [address], [place] [address]- 6914 Feb, IMMUNIZATIONS No Known Immunizations SOCIAL HISTORY [...]
--- OUTSIDE RECORDS SUMMARY | 2018-07-01 17:18 | XMS REPORT ---
Author Author SONIA ERIC [facility] Address [address] [place] [address] Care Team Providers Care Shoe Stamper Name Role Phone NICK SCOTTY Unavailable PROBLEMS Type Condition ICD9-CM Code RXF35-HP Code Onset Dates Condition Status SNOMED Code Problem Sensorineural hearing loss of both ears H90.3 Active 210103593 Problem Acquired asplenia Z90.81 Active 523031654 Problem Type 2 diabetes mellitus with diabetic polyneuropathy, without long- term current use of insulin E11.42 Active 24343315 Problem Primary osteoarthritis of both knees M17.0 Active 099775572 Problem Locking of left knee M23.92 Active [id number] Problem Elevated platelet count D47.3 Active 3556544 Problem Incisional hernia, without obstruction or gangrene K43.2 Active 288549332 Problem BMI 50.0-59.9, adult Z68.43 Active 995339269 Problem Other chronic pain G89.29 Active 26903309 Problem Major depressive disorder, recurrent, unspecified F33.9 Active 242584834 Problem Hypothyroidism, unspecified E03.9 Active 742719763 Problem Essential hypertension I10 Active 00359231 Problem Mixed hyperlipidemia E78.2 Active 196451317 Problem Chronic hepatitis C without hepatic coma B18.2 Active 570347341 Problem Type 2 diabetes mellitus with hyperglycemia E11.65 Active 48851681 Problem Primary osteoarthritis involving multiple joints M15.0 Active 482725064 ALLERGIES No Known Allergies ENCOUNTERS Encounter Location Date Diagnosis [facility] [id number], [place] [address] Sep, [facility] [id number] [address] Sep, Chronic hepatitis C without hepatic coma B18.2 and Hypothyroidism, unspecified E03.9 [facility] [id number] [place] [address] 89138- 0084 Sep, Essential hypertension I10 [id number] [place] [address] 95844- 1607 Jun, Hypothyroidism, unspecified E03.9 [facility] [id number] [place] [address] 88600- 5898 Jun, Chronic hepatitis C without hepatic coma B18.2 and Hypothyroidism, unspecified E03.9 [facility] [id number] [place] [address] 04697- 4282 Jun, [facility] [facility] [id number] [place] [address] 39094- 3215 Jun, BMI 45.0-49.9, adult Z68.42 ; Essential hypertension I10 ; Major depressive disorder, recurrent, unspecified F33.9 ; Elevated platelet count D47.3 ; Primary osteoarthritis involving multiple joints M15.0 ; Locking of left knee M23.92 ; Right knee buckling M25.361 and Primary osteoarthritis of both knees M17.0 [place] [id number] [place] [address] 74001- 7889 Apr, Hypothyroidism, unspecified E03.9 [place] [facility] [id number] [place] [address] 45953- 6363 Apr, Type 2 diabetes mellitus with hyperglycemia [...] immunization Z23 and BMI 50.0-59.9, adult Z68.43 [place] [id number] [place] [address] 48782- 9228 Nov, Elevated platelet count D47.3 [place] [facility] [id number] [place] [address] 58294- 6830 Oct, Mixed hyperlipidemia E78.2 ; Essential hypertension I10 ; Major depressive disorder, recurrent, unspecified F33.9 and Type 2 diabetes mellitus with diabetic polyneuropathy, without long-term current use of insulin E11.42 [place] [id number] [place] [address] 59389- 1121 Oct, Elevated platelet count D47.3 [facility] [id number] [place] [address] 96411- 4337 Oct, Chronic hepatitis C without hepatic coma B18.2 [facility] [facility] [id number] [place] [address] 55441- 6878 Sep, [facility] [facility] [id number] [place] [address] 64916- 7737 Sep, Mixed hyperlipidemia E78.2 [facility] [facility] [id number] [place] [address] 51212- 3361 Mar, [facility] [id number] [place] [address] 42283- 3944 Mar, Incisional hernia, without obstruction or gangrene K43.2 [place] [facility] [id number] [place] [address] 16310- 2581 Feb, Chronic hepatitis C without hepatic coma B18.2 [facility] [id number] [place] [address] 71880- 0800 Jan, [place] [facility] [id number] [place] [address] 48049- 4229 Jan, [address] [id number] [place] [address] 46631- 4090 Jan, Type 2 diabetes mellitus with diabetic polyneuropathy, without long-term current use of insulin E11.42 ; Hypothyroidism, unspecified E03.9 ; Mixed hyperlipidemia E78.2 ; Essential hypertension I10 ; Major depressive disorder, recurrent, unspecified F33.9 ; Acquired asplenia Z90.81 ; Encounter for immunization Z23 and Chronic hepatitis C without hepatic coma B18.2 [facility] [address], [place] [address] 65[address] Jan, Type 2 diabetes mellitus with hyperglycemia E11.65 ; Mixed hyperlipidemia E78.2 and Hypothyroidism, unspecified E03.9 [facility] [address], [place] [address] 2800 Dec, Chronic hepatitis C without hepatic coma B18.2 [facility] [id number] [address] 8634 Nov, [facility] [id number] [address]- 1143 Nov, [facility] [id number] [place] [address] 79520- 6826 Oct, [facility] [id number] [address] 2890 Oct, [facility] [address], [place] [address] 0904 Sep, [facility] [address], [place] [address]- 6985 Sep, Hypothyroidism, unspecified E03.9 [facility] [address] [address]- 0612 Sep, Chronic hepatitis C without hepatic coma B18.2 [facility] [address], [place] [address]- 0569 Sep, Type 2 diabetes mellitus with hyperglycemia E11.65 ; Chronic hepatitis C without hepatic coma B18.2 ; Hypothyroidism, unspecified E03.9 ; Major depressive disorder, recurrent, unspecified F33.9 ; Essential hypertension I10 ; Mixed hyperlipidemia E78.2 and Type 2 diabetes mellitus with diabetic polyneuropathy, without long-term current use of insulin E11.42 [facility] [address], [place] [address]- 3973 August, [facility] [id number] [place] [address] 73175- 7120 August, Breast nodule N63 [address] [address] 37742- 4658 Feb, [place] [address] 65909- 7369 Feb, Breast nodule N63 [address] [address] 16139- 2871 Jan, Essential hypertension I10 ; Chronic hepatitis C without hepatic coma B18.2 ; Major depressive disorder, recurrent, unspecified F33.9 ; Type 2 diabetes mellitus with hyperglycemia E11.65 and Tinnitus of both ears H93.13 [place] [address] 54577- 9134 Jan, Hypothyroidism, unspecified E03.9 [place] [address] 89183- 4621 Jan, Hyperlipidemia LDL goal <100 272.4 ; Unspecified hypothyroidism 244.9 and Acute renal insufficiency 593.[address] 44657- 5484 Jan, Breast screening Z12.[address] 88848- 2136 Oct, Breast cancer screening V76.10 [place] [address] 64874- 0864 Sep, Chronic hepatitis C without mention of hepatic coma 070.54 and Acute renal insufficiency 593.9 [place] [address] 03429- 6449 Sep, Routine gynecological examination V72.31 ; Pap test, as part of routine gynecological examination V76.2 ; Breast cancer screening V76.10 ; Postmenopausal V49.81 and Vulvar itching 698.[address] 36516- 4724 Sep, Chronic hepatitis C without mention of hepatic coma 070.54 ; Acute renal insufficiency 593.9 and Hyperlipidemia LDL goal <100 272.4 [facility] [id number] [place] [address] 10387- 8972 Sep, Chronic hepatitis C without mention of hepatic coma 070.54 ; Unspecified hypothyroidism 244.9 ; Essential hypertension, benign 401.1 ; Osteoarthritis 715.90 ; Diabetes mellitus without mention of complication, type II or unspecified type, uncontrolled 250.02 and Colon cancer screening V76.51 [facility] [id number] [place] [address] 75112- 7341 Sep, [facility] [id number] [place] [address] 78047- 8731 Jul, [facility] [id number] [place] [address] 24265- 9847 Jul, [facility] [id number] [place] [address] 10782- 5379 Dec, [facility] [id number] [place] [address] 92567- 8273 Dec, [facility] [id number] [place] [address] 60503- 5510 Oct, [facility] [id number] [address]- 6326 Oct, [facility] [address], [place] [address]- 7206 Sep, [facility] [id number], [place] [address]- 8228 Sep, [facility] [id number] [place] [address] 401464- 8108 August, [facility] [id number] [address] 8145 August, [facility] [id number] [place] [address] 49075- 3662 August, [facility] [id number], [place] [address]- 4753 August, [facility] [address], [place] [address]- 7510 August, [facility] [id number], [place] [address]- 7076 August, [facility] [address] 2025 Mar, [facility] [address], [place] [address]- 9417 Mar, [facility] [address], [place] [address]- 4123 Mar, [facility] [address], [place] [address]- 3047 Mar, [facility] [address], [place] [address]- 7549 Feb, [facility] [address] [address]- 3048 Feb, [facility] [address], [place] [address]- 3108 Feb, [facility] [id number], [place] [address]- 6291 Feb, IMMUNIZATIONS No Known Immunizations SOCIAL HISTORY Never Assessed REASON FOR VISIT knee pain f/u-Harvey PLAN OF CARE Activity Details Follow Up after MRI results Reason: VITAL SIGNS Height 62 in 2017-06-14 Weight 271.0 lbs 2017-06-14 Temperature 98.8 degrees Fahrenheit 2017-06-14 Heart Rate 84 bpm 2017-06-14 Respiratory Rate 22 2017-06-14 BMI 49.56 kg/m2 2017-06-14 Blood pressure systolic 142 mmHg 2017-06-14 Blood pressure diastolic 94 mmHg 2017-06-14 MEDICATIONS Medication Instructions Dosage Frequency Start Date End Date Duration Status Celebrex 100 MG Orally Twice a day 1 capsule 12h 30 Not-Taking Paroxetine HCl 20 mg Orally Once a day 1 tablet in the morning 24h Active Lisinopril 40 mg Orally Once a day 1 tablet 24h 24 Sep, 2014 Active Triamcinolone Acetonide 0.1 % Externally Twice a day 1 application to affected area 12h 25 Sep, 2014 Not-Taking Walker N/A as directed Jun, Active Levothyroxine Sodium 50 MCG Orally Once a day. Take along with 175 to equal 225mcg 1 tablet 30 days Active Metformin HCl 1000 MG Orally Twice a day 1 tablet with meals 12h 90 days Active Atorvastatin Calcium 40 mg Orally Once a day 1 tablet 24h Apr, 90 days Active RESULTS Name Result Date Reference Range MRI : Knee, Left w/o contrast 2017-06-18 MRI : Knee, Right w/o contrast 2017-06-18 PROCEDURES Procedure Date Ordered Result Body Site ON LICENSE OF [facility] VISIT ESTABLISHED PATIENT June 14, 2017 INSTRUCTIONS MEDICATIONS ADMINISTERED No Known Medications [...]
--- OUTSIDE RECORDS SUMMARY | 2018-07-01 17:18 | XMS REPORT ---
Author Author SONIAERIC FATIMA [facility] Address [address] [place] [address] Care Team Providers Care Mail Carrier And Clerk Name Role Phone NICK SCOTTY Unavailable PROBLEMS Type Condition ICD9-CM Code JBF33-BD Code Onset Dates Condition Status SNOMED Code Problem Sensorineural hearing loss of both ears H90.3 Active 737775541 Problem Acquired asplenia Z90.81 Active 540819681 Problem Type 2 diabetes mellitus with diabetic polyneuropathy, without long- term current use of insulin E11.42 Active 80381619 Problem Primary osteoarthritis of both knees M17.0 Active 400952403 Problem Locking of left knee M23.92 Active 37666246620740655 Problem Elevated platelet count D47.3 Active 0177996 Problem Incisional hernia, without obstruction or gangrene K43.2 Active 468122436 Problem BMI 50.0-59.9, adult Z68.43 Active 946000425 Problem Other chronic pain G89.29 Active 96326946 Problem Major depressive disorder, recurrent, unspecified F33.9 Active 994232845 Problem Hypothyroidism, unspecified E03.9 Active 474153192 Problem Essential hypertension I10 Active 28923438 Problem Mixed hyperlipidemia E78.2 Active 824977669 Problem Chronic hepatitis C without hepatic coma B18.2 Active 225787492 Problem Type 2 diabetes mellitus with hyperglycemia E11.65 Active 59415926 Problem Primary osteoarthritis involving multiple joints M15.0 Active 018988711 ALLERGIES No Information ENCOUNTERS Encounter Location Date Diagnosis [facility] [id number], [place] [address]- 69[address] Sep, [facility] [address] [place] [address] 31427- 8531 Sep, Chronic hepatitis C without hepatic coma B18.2 and Hypothyroidism, unspecified E03.9 [facility] [id number] [place] [address] 38414- 2639 Sep, Essential hypertension I10 [address] [id number] [place] [address] 12817- 7588 Jun, Hypothyroidism, unspecified E03.9 [place] [address] [place] [address] 70873- 6647 Jun, Chronic hepatitis C without hepatic coma B18.2 and Hypothyroidism, unspecified E03.9 [place] [facility] [id number] [place] [address] 35166- 4225 Jun, [facility] [facility] [id number] [place] [address] 13393- 5271 Jun, BMI 45.0-49.9, adult Z68.42 ; Essential hypertension I10 ; Major depressive disorder, recurrent, unspecified F33.9 ; Elevated platelet count D47.3 ; Primary osteoarthritis involving multiple joints M15.0 ; Locking of left knee M23.92 ; Right knee buckling M25.361 and Primary osteoarthritis of both knees M17.0 [place] [address] [place] [address] 55879- 0722 Apr, Hypothyroidism, unspecified E03.9 [place] [address] [place] [address] 74297- 9894 Apr, Type 2 diabetes mellitus with hyperglycemia [...] immunization Z23 and BMI 50.0-59.9, adult Z68.43 [place] [address] [place] [address] 87573- 8878 Nov, Elevated platelet count D47.3 [place] [facility] [id number] [place] [address] 76854- 2703 Oct, Mixed hyperlipidemia E78.2 ; Essential hypertension I10 ; Major depressive disorder, recurrent, unspecified F33.9 and Type 2 diabetes mellitus with diabetic polyneuropathy, without long-term current use of insulin E11.42 [place] [address], [place] [address]- 0862 Oct, Elevated platelet count D47.3 [place] [facility] [id number] [place] [address] 75453- 3602 Oct, Chronic hepatitis C without hepatic coma B18.2 [facility] [facility] [id number] [place] [address] 81330- 1070 Sep, [facility] [id number] [place] [address] 24650- 7282 Sep, Mixed hyperlipidemia E78.2 [place] [facility] [id number] [place] [address] 20780- 7163 Mar, [facility] [facility] [id number] [place] [address] 71613- 4699 Mar, Incisional hernia, without obstruction or gangrene K43.2 [place] [facility] [id number] [place] [address] 56027- 8021 Feb, Chronic hepatitis C without hepatic coma B18.2 [facility] [id number], [place] [address]- 3440 Jan, [facility] [id number] [place] [address] 35572- 3568 Jan, [place] [address] [place] [address] 85961- 6803 Jan, Type 2 diabetes mellitus with diabetic polyneuropathy, without long-term current use of insulin E11.42 ; Hypothyroidism, unspecified E03.9 ; Mixed hyperlipidemia E78.2 ; Essential hypertension I10 ; Major depressive disorder, recurrent, unspecified F33.9 ; Acquired asplenia Z90.81 ; Encounter for immunization Z23 and Chronic hepatitis C without hepatic coma B18.2 [facility] [address], [place] [address]- 2652 Jan, Type 2 diabetes mellitus with hyperglycemia E11.65 ; Mixed hyperlipidemia E78.2 and Hypothyroidism, unspecified E03.9 [facility] [address], [place] [address]- 6035 Dec, Chronic hepatitis C without hepatic coma B18.2 [facility] [id number], [place] [address]- 2750 Nov, [facility] [address], [place] [address]- 5850 Nov, [facility] [address], [place] [address]- 4334 Oct, [facility] [address], [place] [address]- 4860 Oct, [facility] [address], [place] [address]- 6923 Sep, [facility] [address], [place] [address]- 6501 Sep, Hypothyroidism, unspecified E03.9 [facility] [address], [place] [address]- 6534 Sep, Chronic hepatitis C without hepatic coma B18.2 [facility] [address], [place] [address]- 1955 Sep, Type 2 diabetes mellitus with hyperglycemia E11.65 ; Chronic hepatitis C without hepatic coma B18.2 ; Hypothyroidism, unspecified E03.9 ; Major depressive disorder, recurrent, unspecified F33.9 ; Essential hypertension I10 ; Mixed hyperlipidemia E78.2 and Type 2 diabetes mellitus with diabetic polyneuropathy, without long-term current use of insulin E11.42 [facility] [address], [place] [address]- 5588 August, [facility] [id number] [place] [address] 17786- 6326 August, Breast nodule N63 [place] [address] 89472- 3566 Feb, [place] [address] 72185- 4169 Feb, Breast nodule N63 [place] [address] 23228- 1379 Jan, Essential hypertension I10 ; Chronic hepatitis C without hepatic coma B18.2 ; Major depressive disorder, recurrent, unspecified F33.9 ; Type 2 diabetes mellitus with hyperglycemia E11.65 and Tinnitus of both ears H93.13 [place] [address] 27403- 1164 Jan, Hypothyroidism, unspecified E03.9 [place] [address] 33123- 2080 Jan, Hyperlipidemia LDL goal <100 272.4 ; Unspecified hypothyroidism 244.9 and Acute renal insufficiency 593.9 [place] [address] 54014- 6427 Jan, Breast screening Z12.39 [place] [address] 12186- 4799 Oct, Breast cancer screening V76.10 [place] [address] 21568- 3869 Sep, Chronic hepatitis C without mention of hepatic coma 070.54 and Acute renal insufficiency 593.9 [place] [id number] [place] [address] 47307- 8727 Sep, Routine gynecological examination V72.31 ; Pap test, as part of routine gynecological examination V76.2 ; Breast cancer screening V76.10 ; Postmenopausal V49.81 and Vulvar itching 698.[address] 57984- 1865 Sep, Chronic hepatitis C without mention of hepatic coma 070.54 ; Acute renal insufficiency 593.9 and Hyperlipidemia LDL goal <100 272.4 [facility] [id number] [place] [address] 517050- 7328 Sep, Chronic hepatitis C without mention of hepatic coma 070.54 ; Unspecified hypothyroidism 244.9 ; Essential hypertension, benign 401.1 ; Osteoarthritis 715.90 ; Diabetes mellitus without mention of complication, type II or unspecified type, uncontrolled 250.02 and Colon cancer screening V76.51 [facility] [id number] [place] [address]- 7272 Sep, [facility] [id number] [place] [address] 16200- 7028 Jul, [facility] [id number] [place] [address] 826702- 6409 Jul, [facility] [id number] [place] [address] 55037- 3739 Dec, [facility] [id number] [place] [address]- 6018 Dec, [facility] [id number] [place] [address] 00268- 9605 Oct, [facility] [address], [place] [address]- 0021 Oct, [facility] [address], [place] [address]- 0806 Sep, [facility] [address] 0799 Sep, [facility] [id number] [address]- 8305 August, [facility] [address] [address]- 6619 August, [facility] [id number] [place] [address] [id number]- 7811 August, [facility] [id number], [place] [address]- 8940 August, [facility] [id number] [place] [address] 23017- 2522 August, [facility] [address], [place] [address]- 4684 August, [facility] [id number] [place] [address] 55924- 3615 Mar, [facility] [address] 9187 Mar, [facility] [id number] [place] [address] 958449- 9938 Mar, [facility] [id number] [place] [address] 559365- 3670 Mar, [facility] [id number] [place] [address] 67709- 2444 Feb, [facility] [address], [place] [address]- 5906 Feb, [facility] [address], [place] [address]- 9900 Feb, [facility] [address] [place] [address]- 9804 Feb, IMMUNIZATIONS No Known Immunizations SOCIAL HISTORY Never Assessed REASON FOR VISIT per lab results PLAN OF CARE VITAL SIGNS MEDICATIONS [...]
--- OUTSIDE RECORDS SUMMARY | 2018-07-01 17:19 | XMS REPORT ---
Author Author ERIC SCOTT eClinicalWorks Address Unknown Phone Unavailable Care Team Providers Care Architectural Wood Model Maker Name Role Phone ERIC SCOTT CP Unavailable Allergies No Known Allergies Problems Problem Type Condition Code Onset Dates Condition Status Problem Sensorineural hearing loss of both ears H90.3 Active Problem Major depressive disorder, recurrent, unspecified F33.9 Active Problem Primary osteoarthritis involving multiple joints M15.0 Active Problem Type 2 diabetes mellitus with diabetic polyneuropathy, without long- term current use of insulin E11.42 Active Problem Type 2 diabetes mellitus with hyperglycemia E11.65 Active Problem Acquired asplenia Z90.81 Active Problem Chronic hepatitis C without hepatic coma B18.2 Active Problem Essential hypertension I10 Active Problem Mixed hyperlipidemia E78.2 Active Problem Hypothyroidism, unspecified E03.9 Active Medications Medication Code System Code Instructions Start Date End Date Status Dosage Levothyroxine Sodium [facility] 55814398075 175 MCG Orally Once a day 1 tablet Results No Known Results Summary Purpose eClinicalWorks Submission
--- OUTSIDE RECORDS SUMMARY | 2018-07-01 17:19 | XMS REPORT ---
Author Author SNOIA ERIC [facility] Address [address] [place] [address] Care Team Providers Care Manager Neonatal Name Role Phone JEWELL SCOTTHANY Unavailable PROBLEMS Type Condition ICD9-CM Code [id number] Code Onset Dates Condition Status SNOMED Code Problem Sensorineural hearing loss of both ears H90.3 Active 346675390 Problem Acquired asplenia Z90.81 Active 611801678 Problem Type 2 diabetes mellitus with diabetic polyneuropathy, without long- term current use of insulin E11.42 Active 20191214 Problem Primary osteoarthritis of both knees M17.0 Active 109452720 Problem Locking of left knee M23.92 Active [id number] Problem Elevated platelet count D47.3 Active 3343006 Problem Incisional hernia, without obstruction or gangrene K43.2 Active 008128263 Problem BMI 50.0-59.9, adult Z68.43 Active 934305662 Problem Other chronic pain G89.29 Active 06702329 Problem Major depressive disorder, recurrent, unspecified F33.9 Active 038091177 Problem Hypothyroidism, unspecified E03.9 Active 488465940 Problem Essential hypertension I10 Active 71134203 Problem Mixed hyperlipidemia E78.2 Active 405331224 Problem Chronic hepatitis C without hepatic coma B18.2 Active 491578063 Problem Type 2 diabetes mellitus with hyperglycemia E11.65 Active 06911276 Problem Primary osteoarthritis involving multiple joints M15.0 Active 352958749 ALLERGIES No Information ENCOUNTERS Encounter Location Date Diagnosis [facility] [address], [place] [address] Jul, Medicare annual wellness visit, initial Z00.00 [facility] [id number], [place] [address] Jun, [facility] [address], [place] [address] Jun, Chronic hepatitis C without hepatic coma B18.2 and Hypothyroidism, unspecified E03.9 [place] [id number] [place] [address] Jun, [place] [id number] [place] [address] Jun, BMI 45.0-49.9, adult Z68.42 ; Essential hypertension I10 ; Major depressive disorder, recurrent, unspecified F33.9 ; Elevated platelet count D47.3 ; Primary osteoarthritis involving multiple joints M15.0 ; Locking of left knee M23.92 ; Right knee buckling M25.361 and Primary osteoarthritis of both knees M17.0 [place] [id number] [place] [address] Apr, Hypothyroidism, unspecified E03.9 [place] [id number] [place] [address] Apr, Type 2 diabetes mellitus with hyperglycemia [...] immunization Z23 and BMI 50.0-59.9, adult Z68.43 [place] [id number] [place] [address] Nov, Elevated platelet count D47.3 [place] [id number] [place] [address] Oct, Mixed hyperlipidemia E78.2 ; Essential hypertension I10 ; Major depressive disorder, recurrent, unspecified F33.9 and Type 2 diabetes mellitus with diabetic polyneuropathy, without long-term current use of insulin E11.42 [place] [id number] [place] [address]- 5979 Oct, Elevated platelet count D47.3 [facility] [id number] [place] [address] 35604[address] 74[address] Oct, Chronic hepatitis C without hepatic coma B18.2 [facility] [id number] [place] [address] 16570- 5685 Sep, [place] [id number] [place] [address] 22060- 6659 Sep, Mixed hyperlipidemia E78.2 [place] [id number] [place] [address] 96[address] Mar, [place] [address] [address] Mar, Incisional hernia, without obstruction or gangrene K43.2 [place] [id number] [place] [address] 57[address]- 4871 Feb, Chronic hepatitis C without hepatic coma B18.2 [place] [id number] [place] [address]- [address] Jan, [place] [id number] [place] [address]- 9488 Jan, [place] [id number] [place] [address]- 18[address] Jan, Type 2 diabetes mellitus with diabetic polyneuropathy, without long-term current use of insulin E11.42 ; Hypothyroidism, unspecified E03.9 ; Mixed hyperlipidemia E78.2 ; Essential hypertension I10 ; Major depressive disorder, recurrent, unspecified F33.9 ; Acquired asplenia Z90.81 ; Encounter for immunization Z23 and Chronic hepatitis C without hepatic coma B18.2 [place] [id number] [place] [address] 16163- 1658 Jan, Type 2 diabetes mellitus with hyperglycemia E11.65 ; Mixed hyperlipidemia E78.2 and Hypothyroidism, unspecified E03.9 [place] [id number] [place] [address]- 8106 Dec, Chronic hepatitis C without hepatic coma B18.2 [facility] [address], [place] [address] Nov, [facility] [address] [address] Nov, [facility] [address], [place] [address] Oct, [facility] [id number] [place] [address] 31216- 1727 Oct, [facility] [id number] [place] [address] 03169- 6448 Sep, [facility] [id number] [place] [address] 50438- 1215 Sep, Hypothyroidism, unspecified E03.9 [facility] [id number] [place] [address] 96166- 6722 Sep, Chronic hepatitis C without hepatic coma B18.2 [facility] [address], [place] [address] Sep, Type 2 diabetes mellitus with hyperglycemia E11.65 ; Chronic hepatitis C without hepatic coma B18.2 ; Hypothyroidism, unspecified E03.9 ; Major depressive disorder, recurrent, unspecified F33.9 ; Essential hypertension I10 ; Mixed hyperlipidemia E78.2 and Type 2 diabetes mellitus with diabetic polyneuropathy, without long-term current use of insulin E11.42 [facility] [address], [place] [address] August, [facility] [address], [place] [address] August, Breast nodule N63 [facility] [address], [place] [address] Feb, [facility] [address], [place] [address] Feb, Breast nodule N[id number] [place] [address]- 75[address] Jan, Essential hypertension I10 ; Chronic hepatitis C without hepatic coma B18.2 ; Major depressive disorder, recurrent, unspecified F33.9 ; Type 2 diabetes mellitus with hyperglycemia E11.65 and Tinnitus of both ears H93.[address] [address] Jan, Hypothyroidism, unspecified E03.[address] [address] Jan, Hyperlipidemia LDL goal <100 272.4 ; Unspecified hypothyroidism 244.9 and Acute renal insufficiency 593.[address] [address] Jan, Breast screening Z12.[address] [address] Oct, Breast cancer screening V76.[address] [address] Sep, Chronic hepatitis C without mention of hepatic coma 070.54 and Acute renal insufficiency 593.9 [place] [id number] [place] [address]87- 2684 Sep, Routine gynecological examination V72.31 ; Pap test, as part of routine gynecological examination V76.2 ; Breast cancer screening V76.10 ; Postmenopausal V49.81 and Vulvar itching 698.1 [address] [id number] [place] [address] 14072- 9308 Sep, Chronic hepatitis C without mention of hepatic coma 070.54 ; Acute renal insufficiency 593.9 and Hyperlipidemia LDL goal <[address] [address]- [address] Sep, Chronic hepatitis C without mention of hepatic coma 070.54 ; Unspecified hypothyroidism 244.9 ; Essential hypertension, benign 401.1 ; Osteoarthritis 715.90 ; Diabetes mellitus without mention of complication, type II or unspecified type, uncontrolled 250.02 and Colon cancer screening V76.51 [facility] [id number] [place] [address] Sep, [facility] [id number] [place] [address] Jul, [facility] [id number] [place] [address] 14194- 8531 Jul, [facility] [id number] [place] [address] 94631- 2659 Dec, [facility] [id number] [place] [address] 07803- 2098 Dec, [facility] [id number] [place] [address] Oct, [facility] [id number] [place] [address] Oct, [facility] [address], [place] [address] Sep, [facility] [address], [place] [address] Sep, [facility] [address], [place] [address] August, [facility] [address], [place] [address] August, [facility] [address], [place] [address] August, [facility] [address], [place] [address] August, [facility] [address], [place] [address] 7[address] August, [facility] [id number] [address] August, [facility] [id number], [place] [address] Mar, [facility] [id number] Mar, [facility] [address] [address] Mar, [facility] [address] Mar, [facility] [id number] [place] [address]80[address]- 2440 Feb, [facility] [address] Feb, [facility] [address], [place] [address]- [address] Feb, [facility] [id number], [place] [address] Feb, IMMUNIZATIONS No Known Immunizations SOCIAL HISTORY Never Assessed REASON FOR VISIT Refill Request PLAN OF CARE VITAL SIGNS MEDICATIONS Medication Instructions Dosage Frequency Start Date End Date Duration Status Pravastatin Sodium 20 mg Orally Once a day 1 tablet 24h 30 days Active RESULTS No Results PROCEDURES No [...]
--- OUTSIDE RECORDS SUMMARY | 2018-07-01 17:19 | XMS REPORT ---
Author Author ERIC SCOTT eClinicalWorks Address Unknown Phone Unavailable Care Team Providers Care Residential Collections Name Role Phone ERIC SCOTT CP Unavailable Allergies, Adverse Reactions, Alerts Substance Reaction Event Type N.K.D.A. Info Not Available Non Drug Allergy Problems Problem Type Condition Code Onset Dates Condition Status Assessment Major depressive disorder, recurrent, unspecified F33.9 Active Assessment Essential hypertension I10 Active Assessment Chronic hepatitis C without hepatic coma B18.2 Active Assessment Tinnitus of both ears H93.13 Active Assessment Type 2 diabetes mellitus with hyperglycemia E11.65 Active Problem Mixed hyperlipidemia E78.2 Active Problem Hypothyroidism, unspecified E03.9 Active Problem Type 2 diabetes mellitus with hyperglycemia E11.65 Active Problem Major depressive disorder, recurrent, unspecified F33.9 Active Problem Primary osteoarthritis involving multiple joints M15.0 Active Problem Chronic hepatitis C without hepatic coma B18.2 Active Problem Essential hypertension I10 Active Medications Medication Code System Code Instructions Start Date End Date Status Dosage Metformin HCl [facility] [address]-38 1000 MG Orally Twice a day 1 tablet with meals Levothyroxine Sodium [facility] [address]-43 150 MCG Orally Once a day Feb 03, 2015 1 tablet Lisinopril [facility] [address]-61 20 MG Orally Once a day September 30, 2014 1 tablet Paroxetine HCl [facility] [address]-32 20 MG Orally Once a day 1 tablet in the morning Triamcinolone Acetonide [facility] [address]-27 0.1 % Externally Twice a day October 01, 2014 1 application to affected area Procedures Procedure Coding System Code Date Office Visit, Est Pt., Level 3 CPT-4 13107 Feb 05, 2015 [facility] VISIT ESTABLISHED PATIENT CPT-4 G0467 Feb 05, 2015 Vital Signs Date/Time: Feb 05, 2015 Temperature 98.3 F Weight 262.8 lbs Height 62 in BMI 48.06 Index Blood Pressure Diastolic 82 mmHg Blood Pressure Systolic 132 mmHg Cardiac Monitoring Heart Rate 84 bpm Results No Known Results Summary Purpose eClinicalWorks Submission
--- OUTSIDE RECORDS SUMMARY | 2018-07-01 17:19 | XMS REPORT ---
Author Author ERIC SCOTT eClinicalWorks Address Unknown Phone Unavailable Care Team Providers Care Heliotherapist Name Role Phone ERIC SCOTT Unavailable Allergies No Known Allergies Problems Problem Type Condition Code Onset Dates Condition Status Assessment Hypothyroidism, unspecified E03.9 Active Problem Mixed hyperlipidemia E78.2 Active Problem [...] Date End Date Status Dosage Levothyroxine Sodium [facility] [address]-80 150 MCG Orally Once a day Feb 03, 2015 1 tablet Results No Known Results Summary Purpose eClinicalWorks Submission
--- OUTSIDE RECORDS SUMMARY | 2018-07-01 17:19 | XMS REPORT ---
Author Author ERIC SCOTT eClinicalWorks Address Unknown Phone Unavailable Care Team Providers Care Community Integration Specialist Name Role Phone ERIC SCOTT CP Unavailable Allergies No Known Allergies Problems Problem Type Condition Code Onset Dates Condition Status Problem Primary osteoarthritis involving multiple joints M15.0 Active Problem Sensorineural hearing loss of both ears H90.3 Active Problem Type 2 diabetes mellitus with hyperglycemia E11.65 Active Problem Mixed hyperlipidemia E78.2 Active Problem Type 2 diabetes mellitus with diabetic polyneuropathy, without long- term current use of insulin E11.42 Active Problem Essential hypertension I10 Active Problem Major depressive disorder, recurrent, unspecified F33.9 Active Problem Hypothyroidism, unspecified E03.9 Active Problem Chronic hepatitis C without hepatic coma B18.2 Active Medications No Known Medications Results No Known Results Summary Purpose eClinicalWorks Submission
--- OUTSIDE RECORDS SUMMARY | 2018-07-01 17:19 | XMS REPORT ---
Author Author ERIC SCOTT e[employer] Address Unknown Phone Unavailable Care Team Providers Care Imaging Account Manager Name Role Phone ERIC SCOTT CP Unavailable [...]
--- OUTSIDE RECORDS SUMMARY | 2018-07-01 17:19 | XMS REPORT ---
Author Author SONIA ERIC [facility] Address [address] [place] [address] Care Team Providers Care Metal Grinder Name Role Phone SONIAJEWELL FATIMAHANY Unavailable PROBLEMS Type Condition ICD9-CM Code KKI99-AZ Code Onset Dates Condition Status SNOMED Code Problem Sensorineural hearing loss of both ears H90.3 Active 805650827 Problem Acquired asplenia Z90.81 Active 774383965 Problem Type 2 diabetes mellitus with diabetic polyneuropathy, without long- term current use of insulin E11.42 Active 92358010 Problem Primary osteoarthritis of both knees M17.0 Active 458093735 Problem Locking of left knee M23.92 Active [id number] Problem Elevated platelet count D47.3 Active 6709362 Problem Incisional hernia, without obstruction or gangrene K43.2 Active 658343205 Problem BMI 50.0-59.9, adult Z68.43 Active 977982184 Problem Other chronic pain G89.29 Active 18796723 Problem Major depressive disorder, recurrent, unspecified F33.9 Active 430736329 Problem Hypothyroidism, unspecified E03.9 Active 459281253 Problem Essential hypertension I10 Active 33067952 Problem Mixed hyperlipidemia E78.2 Active 850812372 Problem Chronic hepatitis C without hepatic coma B18.2 Active 758309277 Problem Type 2 diabetes mellitus with hyperglycemia E11.65 Active 04513262 Problem Primary osteoarthritis involving multiple joints M15.0 Active 996948565 ALLERGIES No Known Allergies ENCOUNTERS Encounter Location Date Diagnosis [facility] [address] [address] Sep, Chronic hepatitis C without hepatic coma B18.2 and Hypothyroidism, unspecified E03.9 [facility] [id number] [address] 9[address] Sep, Essential hypertension I10 [facility] [address] [place] [address] 31672- 9543 Jun, Hypothyroidism, unspecified E03.9 [place] [id number] [place] [address] 35255- 0177 Jun, Chronic hepatitis C without hepatic coma B18.2 and Hypothyroidism, unspecified E03.9 [place] [id number] [place] [address] 34356- 3300 Jun, [place] [address] [address]99- 3131 Jun, BMI 45.0-49.9, adult Z68.42 ; Essential hypertension I10 ; Major depressive disorder, recurrent, unspecified F33.9 ; Elevated platelet count D47.3 ; Primary osteoarthritis involving multiple joints M15.0 ; Locking of left knee M23.92 ; Right knee buckling M25.361 and Primary osteoarthritis of both knees M17.0 [place] [id number] [place] [address] 18817- 5496 Apr, Hypothyroidism, unspecified E03.9 [place] [id number] [place] [address] 47788- 7317 Apr, Type 2 diabetes mellitus with hyperglycemia [...] immunization Z23 and BMI 50.0-59.9, adult Z68.43 [place] [id number] [place] [address] 54493- 5342 Nov, Elevated platelet count D47.3 [place] [id number] [place] [address] 53917- 6979 Oct, Mixed hyperlipidemia E78.2 ; Essential hypertension I10 ; Major depressive disorder, recurrent, unspecified F33.9 and Type 2 diabetes mellitus with diabetic polyneuropathy, without long-term current use of insulin E11.42 [place] [id number] [place] [address] 59197- 1880 Oct, Elevated platelet count D47.3 [place] [id number] [place] [address] 79790- 7122 Oct, Chronic hepatitis C without hepatic coma B18.2 [place] [id number] [place] [address] 83173- 6873 Sep, [place] [id number] [place] [address] 74381- 3273 Sep, Mixed hyperlipidemia E78.2 [place] [id number] [place] [address] 56599- 1325 Mar, [place] [address] 01910- 3706 Mar, Incisional hernia, without obstruction or gangrene K43.2 [place] [id number] [place] [address] 58431- 0179 Feb, Chronic hepatitis C without hepatic coma B18.2 [place] [id number] [place] [address] 50513- 6401 Jan, [place] [id number] [place] [address] 40183- 6598 Jan, [place] [id number] [place] [address] 35838- 2495 13 Jan, 2016 Type 2 diabetes mellitus with diabetic polyneuropathy, without long-term current use of insulin E11.42 ; Hypothyroidism, unspecified E03.9 ; Mixed hyperlipidemia E78.2 ; Essential hypertension I10 ; Major depressive disorder, recurrent, unspecified F33.9 ; Acquired asplenia Z90.81 ; Encounter for immunization Z23 and Chronic hepatitis C without hepatic coma B18.2 [place] [id number] [place] [address] 18181- 3790 Jan, Type 2 diabetes mellitus with hyperglycemia E11.65 ; Mixed hyperlipidemia E78.2 and Hypothyroidism, unspecified E03.9 [facility] [address], [place] [address] Dec, Chronic hepatitis C without hepatic coma B18.2 [facility] [address], [place] [address]- 4577 Nov, [facility] [id number] [place] [address] 00590- 8449 Nov, [facility] [address], [place] [address] 0941 Oct, [facility] [id number] [place] [address] 98299- 4425 Oct, [facility] [id number] [place] [address] 78346- 7733 Sep, [facility] [id number] [place] [address] 34970- 6488 Sep, Hypothyroidism, unspecified E03.9 [facility] [address], [place] [address]- 1325 Sep, Chronic hepatitis C without hepatic coma B18.2 [facility] [address], [place] [address] 6209 Sep, Type 2 diabetes mellitus with hyperglycemia E11.65 ; Chronic hepatitis C without hepatic coma B18.2 ; Hypothyroidism, unspecified E03.9 ; Major depressive disorder, recurrent, unspecified F33.9 ; Essential hypertension I10 ; Mixed hyperlipidemia E78.2 and Type 2 diabetes mellitus with diabetic polyneuropathy, without long-term current use of insulin E11.42 [facility] [address], [place] [address] 6[address] August, [facility] [address], [place] [address]- 9745 August, Breast nodule N63 [facility] [id number] [place] [address] 05117- 6594 Feb, [address] 23087- 8025 Feb, Breast nodule N63 [address] 54783- 8508 Jan, Essential hypertension I10 ; Chronic hepatitis C without hepatic coma B18.2 ; Major depressive disorder, recurrent, unspecified F33.9 ; Type 2 diabetes mellitus with hyperglycemia E11.65 and Tinnitus of both ears H93.[address] 52490- 9173 Jan, Hypothyroidism, unspecified E03.[address] 89319- 4905 Jan, Hyperlipidemia LDL goal <100 272.4 ; Unspecified hypothyroidism 244.9 and Acute renal insufficiency 593.[address] 66383- 8276 Jan, Breast screening Z12.[address] 42926- 6714 Oct, Breast cancer screening V76.[address] 84750- 8555 Sep, Chronic hepatitis C without mention of hepatic coma 070.54 and Acute renal insufficiency 593.9 [id number] [place] [address] 46262- 4794 Sep, Routine gynecological examination V72.31 ; Pap test, as part of routine gynecological examination V76.2 ; Breast cancer screening V76.10 ; Postmenopausal V49.81 and Vulvar itching 698.1 [id number] [place] [address] 52809- 8239 Sep, Chronic hepatitis C without mention of hepatic coma 070.54 ; Acute renal insufficiency 593.9 and Hyperlipidemia LDL goal <100 272.4 [facility] [address], [place] [address]- 8667 Sep, Chronic hepatitis C without mention of hepatic coma 070.54 ; Unspecified hypothyroidism 244.9 ; Essential hypertension, benign 401.1 ; Osteoarthritis 715.90 ; Diabetes mellitus without mention of complication, type II or unspecified type, uncontrolled 250.02 and Colon cancer screening V76.51 [facility] [id number] [place] [address] 89480- 1905 Sep, [facility] [id number] [place] [address] 97208- 4643 Jul, [facility] [id number] [place] [address] 94672- 2313 Jul, [facility] [id number] [place] [address] 06366- 4030 Dec, [facility] [address] [place] [address]- 1185 Dec, [facility] [address], [place] [address]- 2771 Oct, [facility] [address] [place] [address]- 5620 Oct, [facility] [address], [place] [address]- 5723 Sep, [facility] [address], [place] [address]- 8771 Sep, [facility] [address], [place] [address]- 5606 August, [facility] [id number] [address] 2544 August, [facility] [address] 4086 August, [facility] [address] [address] 4617 August, [facility] [id number], [place] [address]- 7064 August, [facility] [address], [place] [address]- 6870 August, [facility] [address], [place] [address]- 7928 Mar, [facility] [id number] [place] [address] 66126- 6171 Mar, [facility] [address] 4766 Mar, [facility] [id number] [place] [address] 54147- 2571 Mar, [facility] [address] 5865 Feb, [facility] [address], [place] [address]- 7764 Feb, [facility] [address], [place] [address]- 4612 Feb, [facility] [address], [place] [address]- 9576 Feb, IMMUNIZATIONS Vaccine Route Administration Date Status FLULAVAL QUAD (6 MO AND UP) 2017 IM Intramuscular Apr 20, 2017 Administered PPSV23 (PNEUMOVAX) IM Intramuscular Apr 20, 2017 Administered SOCIAL HISTORY Never Assessed REASON FOR VISIT Diabetes fu -- silvia esteban, knee pain PLAN OF CARE Activity Details Follow Up 4 Weeks Reason:Knee pain VITAL SIGNS Height 62 in 2017-04-20 Weight 282.0 lbs 2017-04-20 Temperature 98.0 degrees Fahrenheit 2017-04-20 Heart Rate 92 bpm 2017-04-20 Respiratory Rate 22 2017-04-20 BMI 51.57 kg/m2 2017-04-20 Blood pressure systolic 138 mmHg 2017-04-20 Blood pressure diastolic 78 mmHg 2017-04-20 MEDICATIONS Medication Instructions Dosage Frequency Start Date End Date Duration Status Metformin HCl 1000 MG Orally Twice a day 1 tablet with meals 12h 90 days Active Atorvastatin Calcium 40 mg Orally Once a day 1 tablet 24h 12 Apr, 2017 90 days Active Lisinopril 40 mg Orally Once a day 1 tablet 24h 24 Sep, 2014 90 days Active Ribavirin 200 mg Orally Twice a day 3 tablet with food 12h Nov, 28 days Active Paroxetine HCl 20 mg Orally Once a day 1 tablet in the morning 24h 90 days Active Zepatier 50-100 MG Orally Once a day 1 tablet 24h Nov, 28 days Active Celebrex 100 MG Orally Twice a day 1 capsule 12h 30 Not-Taking Levothyroxine Sodium 175 MCG Orally Once a day 1 tablet 24h 90 days Active Triamcinolone Acetonide 0.1 % Externally Twice a day 1 application to affected area 12h 25 Sep, 2014 Not-Taking RESULTS No Results PROCEDURES Procedure Date Ordered Result Body Site LAB NOT BILLED BY [facility] Apr 20, 2017 PROTHROMBIN TIME Apr 20, 2017 VENIPUNCT, ROUTINE* Apr 20, 2017 GLYCATED HEMOGLOBIN TEST Apr 20, 2017 X-RAY EXAM OF KNEES Apr 20, 2017 [facility] VISIT ESTABLISHED PATIENT Apr 20, 2017 IMMUNIZATION ADMIN, EACH ADD (please include units) Apr 20, 2017 ADMN PNEUMCOC VAC NO FEE SCHED DAY Apr 20, 2017 PPSV23 (PNEUMOVAX) Apr 20, 2017 SINGLE IMMUNIZATION ADMIN Apr 20, 2017 FLULAVAL QUAD (6 MO AND UP) 2016Apr 20, 2017 INSTRUCTIONS MEDICATIONS ADMINISTERED No Known Medications [...]
--- OUTSIDE RECORDS SUMMARY | 2018-07-01 17:20 | XMS REPORT ---
Author Author SONIA ERIC [facility] Address [address] [place] [address] Care Team Providers Care Replenishment Specialist Name Role Phone NICK SCOTTY Unavailable PROBLEMS Type Condition ICD9-CM Code CJQ80-HD Code Onset Dates Condition Status SNOMED Code Problem Sensorineural hearing loss of both ears H90.3 Active 598505660 Problem Acquired asplenia Z90.81 Active 462880765 Problem Type 2 diabetes mellitus with diabetic polyneuropathy, without long- term current use of insulin E11.42 Active 56452176 Problem Primary osteoarthritis of both knees M17.0 Active 068467676 Problem Locking of left knee M23.92 Active 62212002609699418 Problem Elevated platelet count D47.3 Active 4710908 Problem Incisional hernia, without obstruction or gangrene K43.2 Active 143950609 Problem BMI 50.0-59.9, adult Z68.43 Active 987217084 Problem Other chronic pain G89.29 Active 78472778 Problem Major depressive disorder, recurrent, unspecified F33.9 Active 485151202 Problem Hypothyroidism, unspecified E03.9 Active 059582572 Problem Essential hypertension I10 Active 81036783 Problem Mixed hyperlipidemia E78.2 Active 518028083 Problem Chronic hepatitis C without hepatic coma B18.2 Active 021240191 Problem Type 2 diabetes mellitus with hyperglycemia E11.65 Active 04076845 Problem Primary osteoarthritis involving multiple joints M15.0 Active 001395376 ALLERGIES No Information ENCOUNTERS Encounter Location Date Diagnosis [facility] [address], [place] [address]- [address] Jul, Medicare annual wellness visit, initial Z00.00 [facility] [address], [place] [address]- 8557 Jun, Hypothyroidism, unspecified E03.9 [facility] [address], [place] [address]- 1733 Jun, Chronic hepatitis C without hepatic coma B18.2 and Hypothyroidism, unspecified E03.9 [place] [address] [place] [address] 10073- 0032 Jun, [place] [address] [place] [address] 16741- 6109 Jun, BMI 45.0-49.9, adult Z68.42 ; Essential hypertension I10 ; Major depressive disorder, recurrent, unspecified F33.9 ; Elevated platelet count D47.3 ; Primary osteoarthritis involving multiple joints M15.0 ; Locking of left knee M23.92 ; Right knee buckling M25.361 and Primary osteoarthritis of both knees M17.0 [place] [address] [place] [address] 34051- 2640 Apr, Hypothyroidism, unspecified E03.9 [place] [id number] [place] [address] 39066- 7233 Apr, Type 2 diabetes mellitus with hyperglycemia [...] immunization Z23 and BMI 50.0-59.9, adult Z68.43 [place] [address] [place] [address] 64932- 9022 Nov, Elevated platelet count D47.3 [place] [address] [place] [address] 50105- 1526 Oct, Mixed hyperlipidemia E78.2 ; Essential hypertension I10 ; Major depressive disorder, recurrent, unspecified F33.9 and Type 2 diabetes mellitus with diabetic polyneuropathy, without long-term current use of insulin E11.42 [place] [id number] [place] [address] 79834- 1662 Oct, Elevated platelet count D47.3 [facility] [id number] [place] [address] 22031- 5779 Oct, Chronic hepatitis C without hepatic coma B18.2 [facility] [id number] [place] [address] 24734- 1636 Sep, [facility] [address] 35751- 0355 Sep, Mixed hyperlipidemia E78.2 [place] [id number] [place] [address] 69937- 1751 Mar, [place] [address] 43880- 1751 Mar, Incisional hernia, without obstruction or gangrene K43.2 [place] [id number] [place] [address] 64541- 8730 Feb, Chronic hepatitis C without hepatic coma B18.2 [place] [id number] [place] [address] 87102- 6754 Jan, [facility] [id number] [place] [address] 05902- 4312 Jan, [place] [facility] [id number] [place] [address] 97974- 0289 Jan, Type 2 diabetes mellitus with diabetic polyneuropathy, without long-term current use of insulin E11.42 ; Hypothyroidism, unspecified E03.9 ; Mixed hyperlipidemia E78.2 ; Essential hypertension I10 ; Major depressive disorder, recurrent, unspecified F33.9 ; Acquired asplenia Z90.81 ; Encounter for immunization Z23 and Chronic hepatitis C without hepatic coma B18.2 [facility] [id number] [place] [address] 02326- 6767 Jan, Type 2 diabetes mellitus with hyperglycemia E11.65 ; Mixed hyperlipidemia E78.2 and Hypothyroidism, unspecified E03.9 [place] [address] [place] [address]- 0711 Dec, Chronic hepatitis C without hepatic coma B18.2 [facility] [address] [place] [address] 08808- 9873 Nov, [facility] [address] [place] [address] 91228- 5112 Nov, [facility] [id number] [place] [address] 46024- 6384 Oct, [facility] [id number] [place] [address] 05650- 8173 Oct, [facility] [id number] [place] [address] 96275- 7809 Sep, [facility] [id number] [place] [address] 90283- 9503 Sep, Hypothyroidism, unspecified E03.9 [facility] [id number] [place] [address] 44319- 2495 Sep, Chronic hepatitis C without hepatic coma B18.2 [facility] [id number] [place] [address] 66748- 9121 Sep, Type 2 diabetes mellitus with hyperglycemia E11.65 ; Chronic hepatitis C without hepatic coma B18.2 ; Hypothyroidism, unspecified E03.9 ; Major depressive disorder, recurrent, unspecified F33.9 ; Essential hypertension I10 ; Mixed hyperlipidemia E78.2 and Type 2 diabetes mellitus with diabetic polyneuropathy, without long-term current use of insulin E11.42 [facility] [address], [place] [address]- 0058 August, [facility] [id number] [place] [address] 28519- 7141 August, Breast nodule N63 [facility] [address] [place] [address] 04661- 6296 Feb, [facility] [id number] [place] [address] 09628- 2533 Feb, Breast nodule N63 [id number] [place] [address] 98188- 5228 Jan, Essential hypertension I10 ; Chronic hepatitis C without hepatic coma B18.2 ; Major depressive disorder, recurrent, unspecified F33.9 ; Type 2 diabetes mellitus with hyperglycemia E11.65 and Tinnitus of both ears H93.[address] 04945- 7426 Jan, Hypothyroidism, unspecified E03.[address] 45535- 9070 Jan, Hyperlipidemia LDL goal <100 272.4 ; Unspecified hypothyroidism 244.9 and Acute renal insufficiency 593.[address] 85500- 9727 Jan, Breast screening Z12.[address] 85498- 8176 Oct, Breast cancer screening V76.[address] 25996- 6770 Sep, Chronic hepatitis C without mention of hepatic coma 070.54 and Acute renal insufficiency 593.9 [id number] [place] [address] 01232- 5490 Sep, Routine gynecological examination V72.31 ; Pap test, as part of routine gynecological examination V76.2 ; Breast cancer screening V76.10 ; Postmenopausal V49.81 and Vulvar itching 698.1 [place] [id number] [place] [address] 30881- 7171 Sep, Chronic hepatitis C without mention of hepatic coma 070.54 ; Acute renal insufficiency 593.9 and Hyperlipidemia LDL goal <[address] 72891- 1029 Sep, Chronic hepatitis C without mention of hepatic coma 070.54 ; Unspecified hypothyroidism 244.9 ; Essential hypertension, benign 401.1 ; Osteoarthritis 715.90 ; Diabetes mellitus without mention of complication, type II or unspecified type, uncontrolled 250.02 and Colon cancer screening V76.51 [facility] [address], [place] [address]- 3450 Sep, [facility] [id number] [address]- 0031 Jul, [facility] [id number] [place] [address] 13873- 0225 Jul, [facility] [id number] [place] [address] 32647- 0604 Dec, [facility] [id number] [address]- 8288 Dec, [facility] [id number] [address]- 0568 Oct, [facility] [id number] [address]- 4008 Oct, [facility] [address], [place] [address]- 3329 Sep, [facility] [address], [place] [address]- 2509 Sep, [facility] [address], [place] [address]- 6756 August, [facility] [address], [place] [address]- 1648 August, [facility] [address], [place] [address]- 2163 August, [facility] [address], [place] [address]- 2635 August, [facility] [address], [place] [address]- 7193 August, [facility] [id number], [place] [address]- 1336 August, [facility] [id number] 1603 Mar, [facility] [id number] 6870 Mar, [facility] [address] 9414 Mar, [facility] [address]- 6309 Mar, [facility] [address], [place] [address]- 2022 Feb, [facility] [address], [place] [address]- 7936 Feb, [facility] [address], [place] [address]- 3638 Feb, [facility] [id number], [place] [address]- 0606 Feb, IMMUNIZATIONS No Known Immunizations SOCIAL HISTORY Never Assessed REASON FOR VISIT med refills PLAN OF CARE VITAL SIGNS MEDICATIONS Medication Instructions Dosage Frequency Start Date End Date Duration Status Lisinopril 40 mg Orally Once a day 1 tablet 24h 24 Sep, 2014 90 days Active Paroxetine HCl 20 mg Orally Once a day 1 tablet in the morning 24h 90 days Active Metformin HCl 1000 MG Orally Twice a day 1 tablet with meals 12h 90 days Active Levothyroxine Sodium 175 MCG Orally Once a day 1 tablet 24h 90 days Active Pravastatin Sodium 20 mg Orally Once a day 1 tablet 24h 90 days Active RESULTS No Results PROCEDURES [...]
--- OUTSIDE RECORDS SUMMARY | 2018-07-01 17:20 | XMS REPORT ---
Author Author ERIC SCOTT Organization [facility] Address [address] [place] [address] Care Team Providers Care Supervisor Bonding Name Role Phone ERIC SCOTT Unavailable PROBLEMS Type Condition ICD9-CM Code [id number] Code Onset Dates Condition Status SNOMED Code Problem Major depressive disorder, recurrent, unspecified F33.9 Active 708495907 Problem Chronic hepatitis C without hepatic coma B18.2 Active 792034468 Problem Essential hypertension I10 Active 85273663 Problem Sensorineural hearing loss of both ears H90.3 Active 583016175 Problem Primary osteoarthritis involving multiple joints M15.0 Active 680882738 Problem Incisional hernia, without obstruction or gangrene K43.2 Active 382975290 Problem Acquired asplenia Z90.81 Active 291231271 Problem Mixed hyperlipidemia E78.2 Active 665992784 Problem Hypothyroidism, unspecified E03.9 Active 427526499 Problem Type 2 diabetes mellitus with diabetic polyneuropathy, without long- term current use of insulin E11.42 Active 46909414 Problem Type 2 diabetes mellitus with hyperglycemia E11.65 Active 39376108 ALLERGIES Unknown Allergies SOCIAL HISTORY No smoking Hx information available PLAN OF CARE VITAL SIGNS MEDICATIONS Unknown Medications RESULTS No Results PROCEDURES No Known procedures IMMUNIZATIONS No Known Immunizations
--- OUTSIDE RECORDS SUMMARY | 2018-07-01 17:20 | XMS REPORT ---
Author Author ERIC SCOTT eClinicalWorks Address Unknown Phone Unavailable Care Team Providers Care Supervisor Roller Printing Name Role Phone ERIC SCOTT CP Unavailable Allergies No Known Allergies Problems Problem Type Condition Code Onset Dates Condition Status Problem Sensorineural hearing loss of both ears H90.3 Active Problem Major depressive disorder, recurrent, unspecified F33.9 Active Problem Primary osteoarthritis involving multiple joints M15.0 Active Assessment Chronic hepatitis C without hepatic coma B18.2 Active Problem Type 2 diabetes mellitus with diabetic polyneuropathy, without long- term current use of insulin E11.42 Active Problem Type 2 diabetes mellitus with hyperglycemia E11.65 Active Problem Acquired asplenia Z90.81 Active Problem Chronic hepatitis C without hepatic coma B18.2 Active Problem Essential hypertension I10 Active Problem Mixed hyperlipidemia E78.2 Active Problem Hypothyroidism, unspecified E03.9 Active Medications No Known Medications Procedures Procedure Coding System Code Date VENIPUNCT, ROUTINE* CPT-4 71042 Feb 18, 2016 LAB NOT BILLED BY [facility] CPT-4 NOBLL Feb 18, 2016 Results Name Result Date Reference Range Unit Abnormality Flag ROUTINE VENIPUNCTURE CBC ----MCHC 31.7 29637062 31.5-35.7 g/dL ----MCH 30.8 81331438 26.6-33.0 pg ----Platelets 467 [id number] 150-379 x10E3/uL H ----RDW 14.2 25877749 12.3-15.4 % ----Immature Granulocytes 0 01529468 % ----Immature Grans (Abs) 0.0 65306753 0.0-0.1 x10E3/uL ----Lymphs 44 79614680 % ----Monocytes 11 22261809 % ----Neutrophils 41 65821395 % ----Neutrophils (Absolute) 4.0 81511393 1.4-7.0 x10E3/uL ----Hematocrit 39.7 65423486 34.0-46.6 % ----Lymphs (Absolute) 4.3 20160218 0.7-3.1 x10E3/uL H ----MCV 97 20160218 79-97 fL ----RBC 4.09 20160218 3.77-5.28 x10E6/uL ----Eos 4 20160218 % ----Basos 0 20160218 % ----Hemoglobin 12.6 20160218 11.1-15.9 g/dL ----Baso (Absolute) 0.0 20160218 0.0-0.2 x10E3/uL ----WBC 9.7 20160218 3.4-10.8 x10E3/uL ----Monocytes(Absolute) 1.1 20160218 0.1-0.9 x10E3/uL H ----Eos (Absolute) 0.3 20160218 0.0-0.4 x10E3/uL Summary Purpose eClinicalWorks Submission
--- OUTSIDE RECORDS SUMMARY | 2018-07-01 17:20 | XMS REPORT ---
Author Author ERIC SCOTT eClinicalWorks Address Unknown Phone Unavailable Care Team Providers Care Global Commodity Manager Name Role Phone ERIC SCOTT CP Unavailable Allergies No Known Allergies Problems Problem Type Condition Code Onset Dates Condition Status Assessment Breast nodule N63 Active Problem Mixed hyperlipidemia E78.2 Active Problem Hypothyroidism, unspecified E03.9 Active Problem Type 2 diabetes mellitus with hyperglycemia E11.65 Active Problem Major depressive disorder, recurrent, unspecified F33.9 Active Problem Primary osteoarthritis involving multiple joints M15.0 Active Problem Chronic hepatitis C without hepatic coma B18.2 Active Problem Essential hypertension I10 Active Medications No Known Medications Results No Known Results Summary Purpose eClinicalWorks Submission
--- OUTSIDE RECORDS SUMMARY | 2018-07-01 17:20 | XMS REPORT ---
Author ERIC Powell eClinicalWorks Address Unknown Phone Unavailable Care Team Providers Care Director Clinical Research Name Role Phone EIRC SCOTT CP Unavailable Allergies, Adverse Reactions, Alerts [...] E78.2 Active Problem Hypothyroidism, unspecified E03.9 Active Assessment Chronic hepatitis C without hepatic coma B18.2 Active Assessment Encounter for immunization Z23 Active Assessment Essential hypertension I10 Active Assessment Mixed hyperlipidemia E78.2 Active Assessment Acquired asplenia Z90.81 Active Assessment Hypothyroidism, unspecified E03.9 Active Assessment Major depressive disorder, recurrent, unspecified F33.9 Active Assessment Type 2 diabetes mellitus with diabetic polyneuropathy, without long -term current use of insulin E11.42 Active Medications Medication Code System Code Instructions Start Date End Date Status Dosage Triamcinolone Acetonide [facility] [address]-30 0.1 % Externally Twice a day October 01, 2014 1 application to affected area Paroxetine HCl [facility] [address]-08 20 MG Orally Once a day 1 tablet in the morning Levothyroxine Sodium [facility] 34897669163 175 MCG Orally Once a day 1 tablet Lisinopril [facility] [address]-47 40 mg Orally Once a day September 30, 2014 1 tablet Pravastatin Sodium [facility] [address]-10 20 mg Orally Once a day 1 tablet Zepatier [facility] [address]-31 50-100 MG Orally Once a day Nov 24, 2015 1 tablet Metformin HCl [facility] [address]-80 1000 MG Orally Twice a day 1 tablet with meals Ribavirin [facility] [address]-55 200 mg Orally Twice a day Nov 24, 2015 3 tablet with food Celebrex [facility] 78882486515 100 MG Orally Twice a day 1 capsule Procedures Procedure Coding System Code Date LAB NOT BILLED BY [facility] CPT-4 NOBLL Jan 20, 2016 FQ VISIT ESTABLISHED PATIENT CPT-4 G0467 Jan 20, 2016 GLYCATED HEMOGLOBIN TEST CPT-4 11369 Jan 20, 2016 VENIPUNCT, ROUTINE* CPT-4 07992 Jan 20, 2016 IMMUNIZATION ADMIN, EACH ADD (please include units) CPT-4 53260 Jan 20, 2016 PCV 13 CPT-4 47147 Jan 20, 2016 Office Visit, Est Pt., Level 3 CPT-4 47196 Jan 20, 2016 SINGLE IMMUNIZATION ADMIN CPT-4 39494 Jan 20, 2016 FLUARIX QUAD P-FREE 3 AND UP .50 2015 CPT-4 92042 Jan 20, 2016 Vital Signs Date/Time: Jan 20, 2016 Cardiac Monitoring Heart Rate 90 bpm Weight 280 lbs Height 62 in BMI 51.21 Index Blood Pressure Diastolic 86 mmHg Blood Pressure Systolic 138 mmHg Results Name Result Date Reference Range Unit Abnormality Flag A1C (IN HOUSE) ----A1C IN HOUSE 6.6 20160120 4.3 - 5.6 % ----Previous A1c 7.1 20160120 ----Lot [id number] ----Exp date [id number] ROUTINE VENIPUNCTURE Immunizations Vaccine Administration Date PCV Jan 20, 2016 FLUARIX QUAD P-FREE 3 AND UP .50 2015Jan 20, 2016 Summary Purpose eClinicalWorks Submission
--- OUTSIDE RECORDS SUMMARY | 2018-07-01 17:20 | XMS REPORT ---
Author Author ERIC SCOTT eClinicalWorks Address Unknown Phone Unavailable Care Team Providers Care Finished Hardware Erector Name Role Phone ERIC SCOTT CP Unavailable [...] unspecified E03.9 Active Medications No Known Medications Results No Known Results Summary Purpose eClinicalWorks Submission
--- OUTSIDE RECORDS SUMMARY | 2018-07-01 17:20 | XMS REPORT ---
Author Author ERIC SCOTT Organization [facility] Address [address] [place] [address] Care Team Providers Care Restrike Hammer Operator Name Role Phone ERIC SCOTT Unavailable PROBLEMS Type Condition ICD9-CM Code [id number] Code Onset Dates Condition Status SNOMED Code Problem Sensorineural hearing loss of both ears H90.3 Active 004661335 Problem Major depressive disorder, recurrent, unspecified F33.9 Active 952519617 Problem Primary osteoarthritis involving multiple joints M15.0 Active 541312513 Problem Type 2 diabetes mellitus with diabetic polyneuropathy, without long- term current use of insulin E11.42 Active 07246643 Problem Type 2 diabetes mellitus with hyperglycemia E11.65 Active 53001377 Problem Chronic hepatitis C without hepatic coma B18.2 Active 071047707 Problem Essential hypertension I10 Active 38274658 Problem Mixed hyperlipidemia E78.2 Active 266848221 Problem Hypothyroidism, unspecified E03.9 Active 013095049 ALLERGIES Unknown Allergies SOCIAL HISTORY No smoking Hx information available PLAN OF CARE VITAL SIGNS MEDICATIONS Unknown Medications RESULTS No Results PROCEDURES No Known procedures IMMUNIZATIONS No Known Immunizations
--- OUTSIDE RECORDS SUMMARY | 2018-07-01 17:20 | XMS REPORT ---
Author Author ERIC SCOTT eClinicalWorks Address Unknown Phone Unavailable Care Team Providers Care Property Management Assistant Name Role Phone ERIC SCOTT CP Unavailable Allergies No Known Allergies Problems Problem Type Condition Code Onset Dates Condition Status Assessment Acute renal insufficiency 593.9 Active Assessment Hyperlipidemia LDL goal <100 272.4 Active Assessment Unspecified hypothyroidism 244.9 Active Problem Mixed hyperlipidemia E78.2 Active Problem Hypothyroidism, unspecified E03.9 Active Problem Type 2 diabetes mellitus with hyperglycemia E11.65 Active Problem Major depressive disorder, recurrent, unspecified F33.9 Active Problem Primary osteoarthritis involving multiple joints M15.0 Active Problem Chronic hepatitis C without hepatic coma B18.2 Active Problem Essential hypertension I10 Active Medications No Known Medications Procedures Procedure Coding System Code Date VENIPUNCT, ROUTINE* CPT-4 01797 Feb 02, 2015 [facility] CPT-4 NOBLL Feb 02, 2015 Results Name Result Date Reference Range Unit Abnormality Flag ROUTINE VENIPUNCTURE Summary Purpose eClinicalWorks Submission
--- OUTSIDE RECORDS SUMMARY | 2018-07-01 17:20 | XMS REPORT ---
Author Author SONIA ERIC [facility] Address [address] [place] [address] Care Team Providers Care Individual Pension Consultant Name Role Phone NICK SCOTTY Unavailable PROBLEMS Type Condition ICD9-CM Code [id number] Code Onset Dates Condition Status SNOMED Code Problem Sensorineural hearing loss of both ears H90.3 Active 170841458 Problem Acquired asplenia Z90.81 Active 158653915 Problem Type 2 diabetes mellitus with diabetic polyneuropathy, without long- term current use of insulin E11.42 Active 83813190 Problem Primary osteoarthritis of both knees M17.0 Active 920128482 Problem Locking of left knee M23.92 Active 20896464066688611 Problem Elevated platelet count D47.3 Active 0321637 Problem Incisional hernia, without obstruction or gangrene K43.2 Active 365316153 Problem BMI 50.0-59.9, adult Z68.43 Active 710015678 Problem Other chronic pain G89.29 Active 00808064 Problem Major depressive disorder, recurrent, unspecified F33.9 Active 434406707 Problem Hypothyroidism, unspecified E03.9 Active 092651186 Problem Essential hypertension I10 Active 32198828 Problem Mixed hyperlipidemia E78.2 Active 199324499 Problem Chronic hepatitis C without hepatic coma B18.2 Active 025451000 Problem Type 2 diabetes mellitus with hyperglycemia E11.65 Active 74342152 Problem Primary osteoarthritis involving multiple joints M15.0 Active 844643989 ALLERGIES No Information ENCOUNTERS Encounter Location Date Diagnosis [facility] [address], [place] [address] Jul, Medicare annual wellness visit, initial Z00.00 [facility] [address] [place] [address] Jun, Hypothyroidism, unspecified E03.9 [facility] [address] [place] [address] Jun, Chronic hepatitis C without hepatic coma B18.2 and Hypothyroidism, unspecified E03.9 [facility] [address] [place] [address] Jun, [place] [address] [place] [address] Jun, BMI 45.0-49.9, adult Z68.42 ; Essential hypertension I10 ; Major depressive disorder, recurrent, unspecified F33.9 ; Elevated platelet count D47.3 ; Primary osteoarthritis involving multiple joints M15.0 ; Locking of left knee M23.92 ; Right knee buckling M25.361 and Primary osteoarthritis of both knees M17.0 [place] [address] [place] [address] Apr, Hypothyroidism, unspecified E03.9 [place] [address] [place] [id number] [place] [address] Apr, Type 2 diabetes mellitus with hyperglycemia [...] and BMI 50.0-59.9, adult Z68.43 [place] [address] [place] [address]- [address] Nov, Elevated platelet count D47.3 [place] [address] [place] [address]98- [address] Oct, Mixed hyperlipidemia E78.2 ; Essential hypertension I10 ; Major depressive disorder, recurrent, unspecified F33.9 and Type 2 diabetes mellitus with diabetic polyneuropathy, without long-term current use of insulin E11.42 [place] [address] [id number] [place] [address] 04163- 5571 Oct, Elevated platelet count D47.3 [facility] [address] [id number] [place] [address] 6[address]42- 65[address] Oct, Chronic hepatitis C without hepatic coma B18.2 [facility] [id number] [place] [address]48- 7846 Sep, [facility] [address] [address] Sep, Mixed hyperlipidemia E78.2 [place] [address] [id number] [place] [address]- [address] Mar, [place] [address] [address] Mar, Incisional hernia, without obstruction or gangrene K43.2 [place] [address] [id number] [place] [address]- [address] Feb, Chronic hepatitis C without hepatic coma B18.2 [place] [address] [address] [id number] [place] [address]26- 86[address] Jan, [place] [address] [address] [id number] [place] [address]- [address] Jan, [place] [address] [id number] [place] [address]- [address] Jan, Type 2 diabetes mellitus with diabetic polyneuropathy, without long-term current use of insulin E11.42 ; Hypothyroidism, unspecified E03.9 ; Mixed hyperlipidemia E78.2 ; Essential hypertension I10 ; Major depressive disorder, recurrent, unspecified F33.9 ; Acquired asplenia Z90.81 ; Encounter for immunization Z23 and Chronic hepatitis C without hepatic coma B18.2 [facility] [address] [id number] [place] [address] 71593- 7434 Jan, Type 2 diabetes mellitus with hyperglycemia E11.65 ; Mixed hyperlipidemia E78.2 and Hypothyroidism, unspecified E03.9 [place] [address] [place] [address] Dec, Chronic hepatitis C without hepatic coma B18.2 [facility] [address] [place] [address] 79105- 2469 Nov, [facility] [address] [place] [address] 52342- 5783 Nov, [facility] [address] [id number] [place] [address] 39276- 9813 Oct, [facility] [address] [id number] [place] [address] 54092- 4678 Oct, [facility] [address] [id number] [place] [address] 88457- 6756 Sep, [facility] [address] [address] [id number] [place] [address] 60811- 5908 Sep, Hypothyroidism, unspecified E03.9 [facility] [address] [id number] [place] [address] 00973- 4478 Sep, Chronic hepatitis C without hepatic coma B18.2 [facility] [address] [id number] [place] [address] 60896- 8946 Sep, Type 2 diabetes mellitus with hyperglycemia E11.65 ; Chronic hepatitis C without hepatic coma B18.2 ; Hypothyroidism, unspecified E03.9 ; Major depressive disorder, recurrent, unspecified F33.9 ; Essential hypertension I10 ; Mixed hyperlipidemia E78.2 and Type 2 diabetes mellitus with diabetic polyneuropathy, without long-term current use of insulin E11.42 [facility] [address] [place] [address] August, [facility] [address] [address] [id number] [place] [address] 24477- 9634 August, Breast nodule N63 [facility] [address] [place] [address] 54732- 4814 Feb, [facility] [id number] [place] [address] 02674- 6274 Feb, Breast nodule N63 [place] [id number] [place] [address] 96040- 1807 Jan, Essential hypertension I10 ; Chronic hepatitis C without hepatic coma B18.2 ; Major depressive disorder, recurrent, unspecified F33.9 ; Type 2 diabetes mellitus with hyperglycemia E11.65 and Tinnitus of both ears H93.[address] [address] Jan, Hypothyroidism, unspecified E03.[address] [address]- [address] Jan, Hyperlipidemia LDL goal <100 272.4 ; Unspecified hypothyroidism 244.9 and Acute renal insufficiency 593.[address] [address] Jan, Breast screening Z12.[address] [address] Oct, Breast cancer screening V76.[address] [address] Sep, Chronic hepatitis C without mention of hepatic coma 070.54 and Acute renal insufficiency 593.9 [place] [id number] [place] [address]29- 5005 Sep, Routine gynecological examination V72.31 ; Pap test, as part of routine gynecological examination V76.2 ; Breast cancer screening V76.10 ; Postmenopausal V49.81 and Vulvar itching 698.1 [place] [id number] [place] [address]- [address] Sep, Chronic hepatitis C without mention of hepatic coma 070.54 ; Acute renal insufficiency 593.9 and Hyperlipidemia LDL goal <[address] [address]- [address] Sep, Chronic hepatitis C without mention of hepatic coma 070.54 ; Unspecified hypothyroidism 244.9 ; Essential hypertension, benign 401.1 ; Osteoarthritis 715.90 ; Diabetes mellitus without mention of complication, type II or unspecified type, uncontrolled 250.02 and Colon cancer screening V76.51 [facility] [address] [place] [address] Sep, [facility] [address] [place] [address] Jul, [facility] [address] [address] [id number] [place] [address] 09717- 4395 Jul, [facility] [id number] [place] [address] 94532- 2879 Dec, [facility] [id number] [place] [address] Dec, [facility] [id number] [place] [address] Oct, [facility] [id number] [place] [address] Oct, [facility] [address] [place] [address] Sep, [facility] [address] [place] [address] Sep, [facility] [address] [place] [address] August, [facility] [address] [place] [address] August, [facility] [address] [place] [address] August, [facility] [address] [place] [address] August, [facility] [address] [place] [address] August, [facility] [address] [place] [id number] August, [facility] [id number] [place] [address] Mar, [facility] [address] [address] Mar, [facility] [address] Mar, [facility] [address] Mar, [facility] [address] [place] [address] 805518- 1167 Feb, [facility] [address] Feb, [facility] [address] [place] [address]- [address] Feb, [facility] [id number] [place] [address] Feb, IMMUNIZATIONS No Known Immunizations SOCIAL HISTORY Never Assessed REASON FOR VISIT deferred lab PLAN OF CARE VITAL SIGNS MEDICATIONS Unknown [...]
--- OUTSIDE RECORDS SUMMARY | 2018-07-01 17:20 | XMS REPORT ---
Author TEENA Espino [facility] eClinicalWorks Address Unknown Phone Unavailable Care Team Providers Care Construction Project Administrator Name Role Phone TEENA ERIC CP Unavailable Allergies No Known Allergies Problems Problem Type Condition Code Onset Dates Condition Status Assessment Breast screening Z12.39 Active Problem Mixed hyperlipidemia E78.2 Active Problem [...]
--- OUTSIDE RECORDS SUMMARY | 2018-07-01 17:21 | XMS REPORT ---
Author Author ERIC SCOTT eClinicalWorks Address Unknown Phone Unavailable Care Team Providers Care Torch Brazer Name Role Phone ERIC SCOTT CP Unavailable [...]
--- OUTSIDE RECORDS SUMMARY | 2018-07-01 17:21 | XMS REPORT ---
Author Author SONIA ERIC [facility] Address [address] [place] [address] Care Team Providers Care Campground Cleaning Attendant Name Role Phone JEWELL SCOTTHANY Unavailable PROBLEMS Type Condition ICD9-CM Code JOF24-UE Code Onset Dates Condition Status SNOMED Code Problem Sensorineural hearing loss of both ears H90.3 Active 469030662 Problem Acquired asplenia Z90.81 Active 011095827 Problem Type 2 diabetes mellitus with diabetic polyneuropathy, without long- term current use of insulin E11.42 Active 46272006 Problem Primary osteoarthritis of both knees M17.0 Active 827775340 Problem Locking of left knee M23.92 Active [id number] Problem Elevated platelet count D47.3 Active 7067854 Problem Incisional hernia, without obstruction or gangrene K43.2 Active 937808441 Problem BMI 50.0-59.9, adult Z68.43 Active 479979900 Problem Other chronic pain G89.29 Active 44994326 Problem Major depressive disorder, recurrent, unspecified F33.9 Active 053020013 Problem Hypothyroidism, unspecified E03.9 Active 250809645 Problem Essential hypertension I10 Active 96545643 Problem Mixed hyperlipidemia E78.2 Active 755400876 Problem Chronic hepatitis C without hepatic coma B18.2 Active 251782976 Problem Type 2 diabetes mellitus with hyperglycemia E11.65 Active 96913546 Problem Primary osteoarthritis involving multiple joints M15.0 Active 306818168 ALLERGIES No Information ENCOUNTERS Encounter Location Date Diagnosis [facility] [address] [address] Jul, Medicare annual wellness visit, initial Z00.00 [facility] [id number] [address] Jun, [facility] [address] [address] Jun, Chronic hepatitis C without hepatic coma B18.2 and Hypothyroidism, unspecified E03.9 [place] [id number] [place] [address]- [address] Jun, [place] [id number] [place] [address]178- [address] Jun, BMI 45.0-49.9, adult Z68.42 ; Essential hypertension I10 ; Major depressive disorder, recurrent, unspecified F33.9 ; Elevated platelet count D47.3 ; Primary osteoarthritis involving multiple joints M15.0 ; Locking of left knee M23.92 ; Right knee buckling M25.361 and Primary osteoarthritis of both knees M17.0 [place] [id number] [place] [address]7947- [address] Apr, Hypothyroidism, unspecified E03.9 [place] [id number] [place] [address] 82940- 9084 Apr, Type 2 diabetes mellitus with hyperglycemia [...] immunization Z23 and BMI 50.0-59.9, adult Z68.43 [place] [id number] [place] [address] 74555- 4943 Nov, Elevated platelet count D47.3 [place] [id number] [place] [address] 28008- 7937 Oct, Mixed hyperlipidemia E78.2 ; Essential hypertension I10 ; Major depressive disorder, recurrent, unspecified F33.9 and Type 2 diabetes mellitus with diabetic polyneuropathy, without long-term current use of insulin E11.42 [place] [id number] [place] [address] 77850- 9441 Oct, Elevated platelet count D47.3 [facility] [id number] [place] [address] 41925- 4955 Oct, Chronic hepatitis C without hepatic coma B18.2 [facility] [id number] [place] [address] 96559- 4425 Sep, [place] [id number] [place] [address] 16114- 6236 Sep, Mixed hyperlipidemia E78.2 [place] [id number] [place] [address] 88596- 0714 Mar, [place] [address] [address] Mar, Incisional hernia, without obstruction or gangrene K43.2 [place] [id number] [place] [address] 50904- 6569 Feb, Chronic hepatitis C without hepatic coma B18.2 [place] [id number] [place] [address] 82804- 4305 Jan, [place] [id number] [place] [address] 01642- 9802 Jan, [place] [id number] [place] [address] 98335- 1244 Jan, Type 2 diabetes mellitus with diabetic polyneuropathy, without long-term current use of insulin E11.42 ; Hypothyroidism, unspecified E03.9 ; Mixed hyperlipidemia E78.2 ; Essential hypertension I10 ; Major depressive disorder, recurrent, unspecified F33.9 ; Acquired asplenia Z90.81 ; Encounter for immunization Z23 and Chronic hepatitis C without hepatic coma B18.2 [place] [id number] [place] [address] 26759- 2981 Jan, Type 2 diabetes mellitus with hyperglycemia E11.65 ; Mixed hyperlipidemia E78.2 and Hypothyroidism, unspecified E03.9 [place] [id number] [place] [address] 96051- 1307 Dec, Chronic hepatitis C without hepatic coma B18.2 [facility] [address] [address] Nov, [facility] [address] [address] Nov, [facility] [address] [address] Oct, [facility] [id number] [place] [address] 85668- 2194 Oct, [facility] [id number] [place] [address] 19208- 0823 Sep, [facility] [id number] [place] [address] 18979- 2562 Sep, Hypothyroidism, unspecified E03.9 [facility] [id number] [place] [address] 83364- 8915 Sep, Chronic hepatitis C without hepatic coma B18.2 [facility] [address] [address] Sep, Type 2 diabetes mellitus with hyperglycemia E11.65 ; Chronic hepatitis C without hepatic coma B18.2 ; Hypothyroidism, unspecified E03.9 ; Major depressive disorder, recurrent, unspecified F33.9 ; Essential hypertension I10 ; Mixed hyperlipidemia E78.2 and Type 2 diabetes mellitus with diabetic polyneuropathy, without long-term current use of insulin E11.42 [facility] [address] [address] August, [facility] [address] [address] August, Breast nodule N63 [facility] [address] [address] Feb, [facility] [address] [address] Feb, Breast nodule [id number] [place] [address] 60318- 6786 Jan, Essential hypertension I10 ; Chronic hepatitis C without hepatic coma B18.2 ; Major depressive disorder, recurrent, unspecified F33.9 ; Type 2 diabetes mellitus with hyperglycemia E11.65 and Tinnitus of both ears H93.[address] [address]- [address] Jan, Hypothyroidism, unspecified E03.[address] [address]- [address] Jan, Hyperlipidemia LDL goal <100 272.4 ; Unspecified hypothyroidism 244.9 and Acute renal insufficiency 593.[address] [address]- [address] Jan, Breast screening Z12.[address] [address]- [address] Oct, Breast cancer screening V76.[address] [address]- [address]751 Sep, Chronic hepatitis C without mention of hepatic coma 070.54 and Acute renal insufficiency 593.9 [place] [id number] [place] [address] 03398- 1350 Sep, Routine gynecological examination V72.31 ; Pap test, as part of routine gynecological examination V76.2 ; Breast cancer screening V76.10 ; Postmenopausal V49.81 and Vulvar itching 698.1 [id number] [place] [address] 77658- 5266 Sep, Chronic hepatitis C without mention of hepatic coma 070.54 ; Acute renal insufficiency 593.9 and Hyperlipidemia LDL goal <[address] [address]28- 2968 Sep, Chronic hepatitis C without mention of hepatic coma 070.54 ; Unspecified hypothyroidism 244.9 ; Essential hypertension, benign 401.1 ; Osteoarthritis 715.90 ; Diabetes mellitus without mention of complication, type II or unspecified type, uncontrolled 250.02 and Colon cancer screening V76.51 [facility] [id number] [address] Sep, [facility] [id number] [address] Jul, [facility] [id number] [place] [address] 96840- 9620 Jul, [facility] [id number] [place] [address] 69082- 2564 Dec, [facility] [id number] [place] [address] 79137- 5856 Dec, [facility] [id number] [address] Oct, [facility] [id number] [address] Oct, [facility] [address] [address] Sep, [facility] [address], [place] [address]- [address] Sep, [facility] [address] [address] August, [facility] [address] [address] August, [facility] [address] [address] August, [facility] [address] [address]- [address] August, [facility] [address] [address] 7[address] August, [facility] [id number] [address] August, [facility] [address], [place] [address]- [address] Mar, [facility] [address] Mar, [facility] [address] [address]- 07[address] Mar, [facility] [address] [address] Mar, [facility] [id number] [place] [address] 459835- 6823 Feb, [facility] [address], [place] [address]- 23[address] Feb, [facility] [address], [place] [address]- [address] Feb, [facility] [id number] [address]- [address] Feb, IMMUNIZATIONS No Known Immunizations SOCIAL HISTORY Never Assessed REASON FOR VISIT Hep C note PLAN OF CARE VITAL SIGNS MEDICATIONS Unknown [...]
--- OUTSIDE RECORDS SUMMARY | 2018-07-01 17:21 | XMS REPORT ---
Author Author ERIC SCOTT [employer] Address Unknown Phone Unavailable Care Team Providers Care Charter Coordinator Name Role Phone ERIC SCOTT CP Unavailable Allergies No Known Allergies Problems Problem Type Condition Code Onset Dates Condition Status Assessment Type 2 diabetes mellitus with hyperglycemia E11.65 Active Problem Primary osteoarthritis involving multiple joints M15.0 Active Problem Sensorineural hearing loss of both ears H90.3 Active Assessment Hypothyroidism, unspecified E03.9 Active Assessment Mixed hyperlipidemia E78.2 Active Problem Type 2 [...] Medications Results No Known Results Summary Purpose [employer] Submission
--- OUTSIDE RECORDS SUMMARY | 2018-07-01 17:23 | XMS REPORT | Continuity of Care Document ---
Author Author [facility] Address Unknown Phone Unavailable Allergies Active Description Code Type Severity Reaction Onset Reported/Identified Relationship to Patient Clinical Status Yes NO KNOWN DRUG ALLERGIES UNKNOWN NO KNOWN DRUG ALLERG Yes No Known Drug Allergies [id number] Drug Allergy Unknown N/A 07/18/2007 Medications Medication Packaging Start Date Stop Date Route Dosage Sig NORMAL SALINE 500CC IV BAG INJ 0.9 % (NS 500CC IV BAG) ml 12/30/2017 01/14/2018 CONTINUOUSEVERY 0 Hour FENTANYL INJ 100 MCG/2CC VIAL MCG 12/30/2017 12/30/2017 ONCE&0120 FENTANYL INJ 100 MCG/2CC VIAL MCG 12/30/2017 12/30/2017 ONCE&0125 MIDAZOLAM 2CC VIAL INJ 1 MG/CC (VERSED 2CC VIAL) MG 12/30/2017 12/30/2017 ONCE&0248 NORMAL SALINE 1000CC IV BAG INJ 0.9 % (NS 1000CC IV BAG) ml 12/30/2017 01/14/2018 CONTINUOUSEVERY 0 Hour Flu vacc [id number] 6mos up(PF) IM syringe(Fluarix QUAD) Adult ML 12/30/2017 12/30/2017 ONCE&0541 FENTANYL INJ 100 MCG/2CC VIAL MCG 12/30/2017 01/02/2018 PRN Q2H INSULIN ASPART PEN INJ 100 UNITS/CC (NOVOLOG FLEXPEN) UNITS 12/30/2017 01/29/2018 Q6H&0000,0600,1200,1800 ENALAPRIL VIAL INJ 1.25 MG/CC (VASOTEC VIAL) MG 12/30/2017 01/02/2018 PRN Q6H CIPROFLOXACIN PREMIX IV INJ 400 MG/200CC (CIPRO PREMIX IV) MG 12/30/2017 01/08/2018 BID&0800,2000 PANTOPRAZOLE VIAL INJ 40 MG (PROTONIX IV) MG 12/30/2017 01/08/2018 BID&0800,2000 CEFAZOLIN VIAL INJ 1 GM (ANCEF) GM 12/30/2017 12/30/2017 ONCE&1015 MORPHINE AREA DEVELOPMENT CONSULTANT SYRINGE INJ 30 MG/30CC (MORPHINE AREA DEVELOPMENT CONSULTANT SYRINGE) MG 12/30/2017 01/02/2018 CONTINUOUSEVERY 0 Hour NORMAL SALINE 1000CC IV BAG INJ 0.9 % (NS 1000CC IV BAG) ml 12/30/2017 01/14/2018 CONTINUOUSEVERY 0 Hour ONDANSETRON VIAL INJ 4 MG/2CC (ZOFRAN 2CC VIAL) MG 12/30/2017 01/06/2018 PRN Q4H ALBUTEROL SVN 2.5MG/3CC LIQ 2.5 MG (PROVENTIL ETELVINA 2.5MG/3CC) MG 12/30/2017 01/09/2018 QID&0600,1100,1600,2100 PROMETHAZINE VIAL INJ 25 MG/CC (PHENERGAN VIAL) MG 12/30/2017 01/09/2018 PRN QID METOCLOPRAMIDE VIAL INJ 10 MG/2CC (REGLAN 2CC VIAL) MG 12/30/2017 01/09/2018 PRN Q6H ENALAPRIL VIAL INJ 1.25 MG/CC (VASOTEC VIAL) MG 12/30/2017 01/02/2018 PRN Q6H NORMAL SALINE 1000CC IV BAG INJ 0.9 % (NS 1000CC IV BAG) ml 12/30/2017 12/30/2017 ONCE&2346 NORMAL SALINE 1000CC IV BAG INJ 0.9 % (NS 1000CC IV BAG) ml 12/31/2017 12/31/2017 ONCE&0651 CEFEPIME PREMIX BAG IV 1 GM/50CC (MAXIPIME PREMIX BAG) GM 12/31/2017 01/06/2018 Daily&0900 PANTOPRAZOLE VIAL INJ 40 MG (PROTONIX IV) MG 12/31/2017 01/09/2018 Daily&0900 NORMAL SALINE 1000CC IV BAG INJ 0.9 % (NS 1000CC IV BAG) ml 12/31/2017 01/15/2018 CONTINUOUSEVERY 0 Hour KETOROLAC VIAL INJ 30 MG/CC (TORADOL VIAL) MG 12/31/2017 01/05/2018 PRN Q6H ENOXAPARIN SYRINGE INJ 40 MG (LOVENOX SYRINGE) MG 01/01/2018 01/10/2018 Daily&0900 NORMAL SALINE 1000CC IV BAG INJ 0.9 % (NS 1000CC IV BAG) ml 01/01/2018 01/16/2018 CONTINUOUSEVERY 0 Hour KETOROLAC VIAL INJ 30 MG/CC (TORADOL VIAL) MG 01/02/2018 02/01/2018 PRN EVERY 6 Hour PROMETHAZINE VIAL INJ 25 MG/CC (PHENERGAN VIAL) MG 01/02/2018 01/12/2018 PRN Q6H NORMAL SALINE 1000CC IV BAG INJ 0.9 % (NS 1000CC IV BAG) ml 01/02/2018 01/17/2018 CONTINUOUSEVERY 0 Hour ONDANSETRON VIAL INJ 4 MG/2CC (ZOFRAN 2CC VIAL) MG 01/02/2018 02/01/2018 PRN Q4H ALBUTEROL SVN 2.5MG/3CC LIQ 2.5 MG (PROVENTIL ETELVINA 2.5MG/3CC) MG 01/02/2018 02/01/2018 QID&0600,1100,1600,2100 METFORMIN TAB 500 MG (GLUCOPHAGE) MG 01/02/2018 02/01/2018 BID&0700,1730 METOCLOPRAMIDE VIAL INJ 10 MG/2CC (REGLAN 2CC VIAL) MG 01/02/2018 02/01/2018 PRN Q6H INSULIN ASPART PEN INJ 100 UNITS/CC (NOVOLOG FLEXPEN) 01/02/2018 02/01/2018 Q6H&0600,1200,1800,2359 PANTOPRAZOLE VIAL INJ 40 MG (PROTONIX IV) MG 01/02/2018 02/01/2018 BID&0800,2000 INSULIN ASPART PEN INJ 100 UNITS/CC (NOVOLOG FLEXPEN) 01/02/2018 02/01/2018 ACHS&0630,1130,1630,2100 PAROXETINE TAB 20 MG (PAXIL) MG 02/01/2018 Daily&0900 LISINOPRIL TAB 40 MG (ZESTRIL) MG 01/03/2018 02/01/2018 Daily&0900 ENOXAPARIN SYRINGE INJ 40 MG (LOVENOX SYRINGE) MG 01/03/2018 01/12/2018 Daily&0900 Cefepime (Maxipime) 1 Gm vial GM 01/06/2018 Daily&0900 LEVOTHYROXINE TAB 88 MCG (SYNTHROID) MCG 01/03/2018 02/01/2018 Daily&0900 CEFEPIME PREMIX BAG IV 1 GM/50CC (MAXIPIME PREMIX BAG) GM 01/03/2018 01/06/2018 Daily&0900 PROMETHAZINE VIAL INJ 25 MG/CC (PHENERGAN VIAL) MG 01/03/2018 01/13/2018 PRN Q6H PAROXETINE TAB 20 MG (PAXIL) Dose(s) 02/02/2018 03/03/2018 Daily&0900 NORMAL SALINE 1000CC IV BAG INJ 0.9 % (NS 1000CC IV BAG) ml 02/03/2018 02/18/2018 CONTINUOUSEVERY 0 Hour Piperacillin-tazobactam 3.375 Gm IV recon soln (Zosyn) GM 02/03/2018 02/08/2018 Q6H&0559,1159,1759,2100,2359 INSULIN ASPART PEN INJ 100 UNITS/CC (NOVOLOG FLEXPEN) 02/04/2018 03/05/2018 ACHS&0630,1130,1630,2100 METFORMIN TAB 500 MG (GLUCOPHAGE) Dose(s) 02/04/2018 02/10/2018 BID&0700,1730 PAROXETINE TAB 20 MG (PAXIL) Dose(s) 02/04/2018 02/10/2018 Daily&0900 LISINOPRIL TAB 40 MG (ZESTRIL) Dose(s) 02/04/2018 02/10/2018 Daily&0900 LACTATED RINGERS 1000CC IV BAG INJ ml 02/04/2018 02/04/2018 ONCE&0900 CEFAZOLIN VIAL INJ 1 GM (ANCEF) GM 02/04/2018 02/04/2018 ONCE&0915 ACETAMINOPHEN ORAL TABLET 325mg(Tylenol) MG 02/04/2018 03/06/2018 PRN EVERY 4 Hour OXYCODONE 5MG/APAP 325MG TAB(PERCOCET-5) TAB 02/04/2018 02/11/2018 PRN Q4H LEVOTHYROXINE TAB 88 MCG (SYNTHROID) Dose(s) 02/05/2018 02/11/2018 QAM&0800 ENOXAPARIN SYRINGE INJ 40 MG (LOVENOX SYRINGE) MG 02/05/2018 02/14/2018 Daily&0900 LEVOTHYROXINE TAB 100 MCG (SYNTHROID) MCG 02/05/2018 02/11/2018 Daily&0900 LEVOTHYROXINE TAB 75 MCG (SYNTHROID) MCG 02/05/2018 02/11/2018 Daily&0900 PANTOPRAZOLE VIAL INJ 40 MG (PROTONIX IV) MG 02/05/2018 02/14/2018 Daily&0900 Normal SALINE 0.9 % (NS 100cc) (plain bag) ml 02/06/2018 02/15/2018 Daily&1200 PAROXETINE TAB 20 MG (PAXIL) MG 05/201702/17/2018 Daily&0900 ACETAMINOPHEN ORAL TABLET 325mg(Tylenol) MG 02/08/2018 02/18/2018 PRN Q4H OXYCODONE 5MG/APAP 325MG TAB(PERCOCET-5) TAB 02/08/2018 02/18/2018 PRN Q4H INSULIN ASPART PEN INJ 100 UNITS/CC (NOVOLOG FLEXPEN) UNIT(S) 02/08/2018 02/18/2018 ACHS&0630,1130,1630,2100 Normal SALINE 0.9 % (NS 100cc) (plain bag) ml 02/08/2018 02/15/2018 Daily&1200 METFORMIN TAB 500 MG (GLUCOPHAGE) MG 02/08/2018 02/18/2018 BID&0700,1730 INSULIN ASPART PEN INJ 100 UNITS/CC (NOVOLOG FLEXPEN) 02/08/2018 03/10/2018 ACHS&0630,1130,1630,2100 LISINOPRIL TAB 40 MG (ZESTRIL) MG 02/09/2018 02/18/2018 Daily&0900 ENOXAPARIN SYRINGE INJ 40 MG (LOVENOX SYRINGE) MG 02/09/2018 02/18/2018 Daily&0900 LEVOTHYROXINE TAB 100 MCG (SYNTHROID) MCG 02/09/2018 02/18/2018 Daily&0900 LEVOTHYROXINE TAB 75 MCG (SYNTHROID) MCG 02/09/2018 02/18/2018 Daily&0900 PANTOPRAZOLE VIAL INJ 40 MG (PROTONIX IV) MG 02/09/2018 02/18/2018 Daily&0900 NORMAL SALINE 1000CC IV BAG INJ 0.9 % (NS 1000CC IV BAG) ml 05/08/2018 05/08/2018 ONCE&1236 NORMAL SALINE 250CC IV BAG INJ 0.9 % (NS 250CC IV BAG) ml 05/08/2018 05/08/2018 ONCE&1559 Cefepime (Maxipime) 1 Gm vial GM 05/08/2018 ONCE&1832 NORMAL SALINE 1000CC IV BAG INJ 0.9 % (NS 1000CC IV BAG) ml 05/08/2018 05/08/2018 ONCE&2104 Problems Date Dx Coded Attending Type Code Diagnosis Diagnosed By 02/26/2013 ERIC SCOTT MD 070.54 HEPATITIS C CHRONIC 02/26/2013 ERIC SCOTT MD 244.9 HYPOTHYROIDISM 02/26/2013 ERIC SCOTT MD 250.02 DIABETES II UNCONTROLLED (UNCOMPLICATED) 02/26/2013 ERIC SCOTT MD N 311 DEPRESSIVE DISORDER NOT ELSEWHERE CLASSIFIED 02/26/2013 ERIC SCOTT MD 401.1 HYPERTENSION, BENIGN ESSENTIAL 02/26/2013 TEENA ERIC DO 070.54 HEPATITIS C CHRONIC 02/26/2013 TEENA ERIC DO K 244.9 HYPOTHYROIDISM 02/26/2013 TEENA ERIC DO K 250.02 DIABETES II UNCONTROLLED (UNCOMPLICATED) 02/26/2013 TEENA ERIC DO K 311 DEPRESSIVE DISORDER NOT ELSEWHERE CLASSIFIED 02/26/2013 TENEA ERIC DO 401.1 HYPERTENSION, BENIGN ESSENTIAL 02/26/2013 ERIC SCOTT MD 070.54 HEPATITIS C CHRONIC 02/26/2013 ERIC SCOTT MD 244.9 HYPOTHYROIDISM 02/26/2013 ERIC SCOTT MD 250.02 DIABETES II UNCONTROLLED (UNCOMPLICATED) 02/26/2013 ERIC SCOTT MD N 311 DEPRESSIVE DISORDER NOT ELSEWHERE CLASSIFIED 02/26/2013 ERIC SCOTT MD N 401.1 HYPERTENSION, BENIGN ESSENTIAL 03/26/2013 TEENA ERIC DO V81.1 HYPERTENSION SCREENING 03/26/2013 ERIC SCOTT MD V81.1 HYPERTENSION SCREENING 04/20/2014 GILL CESPEDES APRN Ot 490 BRONCHITIS NOS 04/20/2014 GILL CESPEDES APRN Ot 786.2 COUGH 04/23/2014 GILL CESPEDES APRN Ot 490 04/23/2014 GILL CESPEDES APRN Ot 786.2 08/07/2014 GILL CESPEDES APRN Ot 070.70 UNSPECIFIED VIRAL HEPATITIS C WITHOUT HE 08/07/2014 GILL CESPEDES APRN Ot 244.9 HYPOTHYROIDISM NOS 08/07/2014 CESPEDES, PETER J INVESTIGATIVE SHOPPER Ot 401.9 HYPERTENSION NOS 08/07/2014 GILL CESPEDES INVESTIGATIVE SHOPPER Ot 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 08/07/2014 GILL CESPEDES INVESTIGATIVE SHOPPER Ot 525.8 DENTAL DISORDER NEC 08/07/2014 GILL CESPEDES INVESTIGATIVE SHOPPER Ot V58.69 OTH MED,LT,CURRENT USE 08/11/2014 GILL CESPEDES INVESTIGATIVE SHOPPER Ot 070.70 08/11/2014 GILL CESPEDES INVESTIGATIVE SHOPPER Ot 244.9 08/11/2014 GILL CESPEDES INVESTIGATIVE SHOPPER Ot 401.9 08/11/2014 GILL CESPEDES INVESTIGATIVE SHOPPER Ot 523.9 08/11/2014 GILL CESPEDES INVESTIGATIVE SHOPPER Ot 525.8 12/12/2014 GILL CESPEDES INVESTIGATIVE SHOPPER Ot 053.9 HERPES ZOSTER NOS 12/12/2014 GILL CESPEDES INVESTIGATIVE SHOPPER Ot 782.1 NONSPECIF SKIN ERUPT NEC 12/15/2014 BELLO BRENNER INVESTIGATIVE SHOPPER Ot V76.12 03/08/2015 TEENA ERIC DO Ot N63 03/30/2015 ERIC SCOTT MD Ot N63 08/30/2015 ERIC SCOTT MD Ot N63 UNSPECIFIED LUMP IN BREAST 08/30/2015 ERIC SCOTT MD Ot N63 UNSPECIFIED LUMP IN BREAST 09/16/2015 ERIC SCOTT MD Ot N63 UNSPECIFIED LUMP IN BREAST 06/15/2017 BELLO BRENNER INVESTIGATIVE SHOPPER Ot V76.12 OT SCREEN MAMMO-MALIGN NEOPLASM OF YANA 06/15/2017 TEENA ERIC DO Ot N63 UNSPECIFIED LUMP IN BREAST 06/15/2017 ERIC SCOTT MD Ot N63 UNSPECIFIED LUMP IN BREAST 06/15/2017 ERIC SCOTT MD Ot N63 UNSPECIFIED LUMP IN BREAST 06/19/2017 ERIC SCOTT MD Ot M17.0 BILATERAL PRIMARY OSTEOARTHRITIS OF KNEE 06/19/2017 ERIC SCOTT MD Ot S83.241A OTH TEAR OF MEDIAL MENISCUS, CURRENT INJ 06/19/2017 ERIC SCOTT MD Ot S83.242A OTH TEAR OF MEDIAL MENISCUS, CURRENT INJ 07/10/2017 SONIAERIC FATIMA MD, Ot M17.0 BILATERAL PRIMARY OSTEOARTHRITIS OF KNEE 07/10/2017 ERIC SCOTT MD Ot S83.241A OTH TEAR OF MEDIAL MENISCUS, CURRENT INJ 07/10/2017 ERIC SCOTT MD Ot S83.242A OTH TEAR OF MEDIAL MENISCUS, CURRENT INJ 12/14/2017 ERIC SCOTT MD Ot M17.0 BILATERAL PRIMARY OSTEOARTHRITIS OF KNEE 12/14/2017 ERIC SCOTT MD Ot M23.204 DERANG OF UNSP MEDIAL MENISCUS DUE TO OL 12/14/2017 ERIC SCOTT MD Ot M23.211 DERANG OF ANT HORN OF MEDIAL MENSC D/T O 12/14/2017 ERIC SCOTT MD Ot M23.231 DERANG OF MEDIAL MENISCUS DUE TO OLD TEA 12/30/2017 MICHELLE BUTLER, FIDEL King Ot K46.9 UNSPECIFIED ABDOMINAL HERNIA WITHOUT OBS 12/30/2017 Francie Devine W 250.00 DIABETES MELLITUS WITHOUT MENTION OF COMPLICATION, TYPE II OR UNSPECIFIED TYPE, NOT STATED UNCONTROLLED 12/30/2017 Francie Devine W 272.4 OTHER AND UNSPECIFIED HYPERLIPIDEMIA 12/30/2017 Francie Devine W 296.20 MAJOR DEPRESSIVE DISORDER, SINGLE EPISODE, UNSPECIFIED DEGREE 12/30/2017 Francie Devine W 401.9 UNSPECIFIED ESSENTIAL HYPERTENSION 12/30/2017 Francie Devine W 789.00 ABDOMINAL PAIN, UNSPECIFIED SITE 12/30/2017 Francie Devine W E11.9 TYPE 2 DIABETES MELLITUS WITHOUT COMPLICATIONS 12/30/2017 Francie Devine W E78.5 HYPERLIPIDEMIA, UNSPECIFIED 12/30/2017 Francie Devine W F32.9 MAJOR DEPRESSIVE DISORDER, SINGLE EPISODE, UNSPECIFIED 12/30/2017 Francie Devine W I10 ESSENTIAL (PRIMARY) HYPERTENSION 12/30/2017 Francie Devine W K46 UNSPECIFIED ABDOMINAL HERNIA 12/30/2017 Francie Devine W R10.9 UNSPECIFIED ABDOMINAL PAIN 12/30/2017 Francie Devine W 250.00 DIABETES MELLITUS WITHOUT MENTION OF COMPLICATION, TYPE II OR UNSPECIFIED TYPE, NOT STATED UNCONTROLLED 12/30/2017 Francie Devine W 272.4 OTHER AND UNSPECIFIED HYPERLIPIDEMIA 12/30/2017 Francie Devine W 296.20 MAJOR DEPRESSIVE DISORDER, SINGLE EPISODE, UNSPECIFIED DEGREE 12/30/2017 Francie Devine W 401.9 UNSPECIFIED ESSENTIAL HYPERTENSION 12/30/2017 Francie Devine W 789.00 12/30/2017 Francie Devine W E11.9 TYPE 2 DIABETES MELLITUS WITHOUT COMPLICATIONS 12/30/2017 Francie Devine W E78.5 HYPERLIPIDEMIA, UNSPECIFIED 12/30/2017 Francie Devine W F32.9 MAJOR DEPRESSIVE DISORDER, SINGLE EPISODE, UNSPECIFIED 12/30/2017 Francie Devine W I10 ESSENTIAL (PRIMARY) HYPERTENSION 12/30/2017 Francie Devine W K46 UNSPECIFIED ABDOMINAL HERNIA 12/30/2017 Francie Devine W R10.9 UNSPECIFIED ABDOMINAL PAIN 12/31/2017 Francie Devine W 250.00 DIABETES MELLITUS WITHOUT MENTION OF COMPLICATION, TYPE II OR UNSPECIFIED TYPE, NOT STATED UNCONTROLLED 12/31/2017 Francie Devine W 272.4 OTHER AND UNSPECIFIED HYPERLIPIDEMIA 12/31/2017 Francie Devine W 296.20 MAJOR DEPRESSIVE DISORDER, SINGLE EPISODE, UNSPECIFIED DEGREE 12/31/2017 Francie Devine W 401.9 UNSPECIFIED ESSENTIAL HYPERTENSION 12/31/2017 Francie Devine W 789.00 12/31/2017 Francie Devine W E11.9 TYPE 2 DIABETES MELLITUS WITHOUT COMPLICATIONS 12/31/2017 Francie Devine W E78.5 HYPERLIPIDEMIA, UNSPECIFIED 12/31/2017 Francie Devine F32.9 MAJOR DEPRESSIVE DISORDER, SINGLE EPISODE, UNSPECIFIED 12/31/2017 Francie Devine W I10 ESSENTIAL (PRIMARY) HYPERTENSION 12/31/2017 Francie Devine W K46 UNSPECIFIED ABDOMINAL HERNIA 12/31/2017 Francie Devine W R10.9 UNSPECIFIED ABDOMINAL PAIN 01/01/2018 MICHELLE BUTLER, FIDEL King Ot K46.9 UNSPECIFIED ABDOMINAL HERNIA WITHOUT OBS 01/02/2018 Francie Devine W 250.00 DIABETES MELLITUS WITHOUT MENTION OF COMPLICATION, TYPE II OR UNSPECIFIED TYPE, NOT STATED UNCONTROLLED 01/02/2018 Francie Devine W 272.4 OTHER AND UNSPECIFIED HYPERLIPIDEMIA 01/02/2018 Francie Devine W 276.6 01/02/2018 Francie Devine W 278.01 01/02/2018 Francie Devine W 296.20 MAJOR DEPRESSIVE DISORDER, SINGLE EPISODE, UNSPECIFIED DEGREE 01/02/2018 Francie Devine W 401.0 01/02/2018 Francie Devine W 401.9 UNSPECIFIED ESSENTIAL HYPERTENSION 01/02/2018 Francie Devine W 568.0 01/02/2018 Francie Devine W 593.9 01/02/2018 Francie Devine W 789.00 01/02/2018 Francie Devine W 791.9 01/02/2018 Francie Devine W E11.9 TYPE 2 DIABETES MELLITUS WITHOUT COMPLICATIONS 01/02/2018 Francie Devine W E66.01 MORBID (SEVERE) OBESITY DUE TO EXCESS CALORIES 01/02/2018 Francie Devine W E78.5 HYPERLIPIDEMIA, UNSPECIFIED 01/02/2018 Francie Devine W E87.79 01/02/2018 Francie Devine W F32.9 MAJOR DEPRESSIVE DISORDER, SINGLE EPISODE, UNSPECIFIED 01/02/2018 Francie Devine W I10 ESSENTIAL (PRIMARY) HYPERTENSION 01/02/2018 Francie Devine W K43.6 01/02/2018 Francie Devine W K46 UNSPECIFIED ABDOMINAL HERNIA 01/02/2018 Francie Devine W K66.0 01/02/2018 Francie Devine W N28.9 DISORDER OF KIDNEY AND URETER, UNSPECIFIED 01/02/2018 Francie Devine W R10.9 UNSPECIFIED ABDOMINAL PAIN 01/02/2018 Francie Devine R82.998 OTHER ABNORMAL FINDINGS IN URINE 01/05/2018 Francie Devine W 250.00 DIABETES MELLITUS WITHOUT MENTION OF COMPLICATION, TYPE II OR UNSPECIFIED TYPE, NOT STATED UNCONTROLLED 01/05/2018 Francie Devine 272.4 OTHER AND UNSPECIFIED HYPERLIPIDEMIA 01/05/2018 Francie Devine W 276.6 01/05/2018 Francie Devine W 278.01 MORBID OBESITY 01/05/2018 Francie Devine W 401.0 MALIGNANT ESSENTIAL HYPERTENSION 01/05/2018 Francie Devine W 552.20 UNSPECIFIED VENTRAL HERNIA WITH OBSTRUCTION 01/05/2018 Francie Devine W 593.9 01/05/2018 Francie Devine W E11.9 TYPE 2 DIABETES MELLITUS WITHOUT COMPLICATIONS 01/05/2018 Francie Devine W E66.01 MORBID (SEVERE) OBESITY DUE TO EXCESS CALORIES 01/05/2018 Francie Devine W E78.5 HYPERLIPIDEMIA, UNSPECIFIED 01/05/2018 Francie Devine W E87.79 OTHER FLUID OVERLOAD 01/05/2018 Francie Devine W I10 ESSENTIAL (PRIMARY) HYPERTENSION 01/05/2018 Francie Devine W K43.6 OTHER AND UNSP VENTRAL HERNIA WITH OBSTRUCTION, W/O GANGRENE 01/05/2018 Francie Devine W N28.9 DISORDER OF KIDNEY AND URETER, UNSPECIFIED 01/05/2018 Francie Devine W V45.89 01/05/2018 Francie Devine W Z98.890 OTHER SPECIFIED POSTPROCEDURAL STATES 02/03/2018 Francie Devine W 682.9 CELLULITIS AND ABSCESS OF UNSPECIFIED SITES 02/03/2018 Francie Devine W L02.91 CUTANEOUS ABSCESS, UNSPECIFIED 02/03/2018 Francie Devine W 250.00 DIABETES MELLITUS WITHOUT MENTION OF COMPLICATION, TYPE II OR UNSPECIFIED TYPE, NOT STATED UNCONTROLLED 02/03/2018 Francie Devine W 682.9 CELLULITIS AND ABSCESS OF UNSPECIFIED SITES 02/03/2018 Francie Devine W E11.9 TYPE 2 DIABETES MELLITUS WITHOUT COMPLICATIONS 02/03/2018 Francie Devine W L02.91 CUTANEOUS ABSCESS, UNSPECIFIED 02/08/2018 Francie Devine W 250.00 DIABETES MELLITUS WITHOUT MENTION OF COMPLICATION, TYPE II OR UNSPECIFIED TYPE, NOT STATED UNCONTROLLED 02/08/2018 Francie Devine 682.9 CELLULITIS AND ABSCESS OF UNSPECIFIED SITES 02/08/2018 SybilFrancie E11.9 TYPE 2 DIABETES MELLITUS WITHOUT COMPLICATIONS 02/08/2018 Francie Devine L02.91 CUTANEOUS ABSCESS, UNSPECIFIED 02/08/2018 SybilJavianjum W 041.12 METHICILLIN RESISTANT STAPHYLOCOCCUS AUREUS INFECTION IN CONDITIONS CLASSIFIED ELSEWHERE AND OF UNSPECIFIED SITE 02/08/2018 Francie Devine 250.00 DIABETES MELLITUS WITHOUT MENTION OF COMPLICATION, TYPE II OR UNSPECIFIED TYPE, NOT STATED UNCONTROLLED 02/08/2018 Francie Devine 401.0 MALIGNANT ESSENTIAL HYPERTENSION 02/08/2018 Francie Devine 682.9 CELLULITIS AND ABSCESS OF UNSPECIFIED SITES 02/08/2018 Francie Devine 999.39 02/08/2018 Francie Devine 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SEASES CLASSD ELSWHR 02/08/2018 Francie Devine E11.9 TYPE 2 DIABETES MELLITUS WITHOUT COMPLICATIONS 02/08/2018 Francie Devine I10 ESSENTIAL (PRIMARY) HYPERTENSION 02/08/2018 Francie Devine L02.91 CUTANEOUS ABSCESS, UNSPECIFIED 02/08/2018 Francie Devine T81.41XA INFCT FOL A PROC, SUPERFIC INCISIONAL SURGICAL SITE, INIT 02/13/2018 Sybil Javianjum Nolasco 041.12 METHICILLIN RESISTANT STAPHYLOCOCCUS AUREUS INFECTION IN CONDITIONS CLASSIFIED ELSEWHERE AND OF UNSPECIFIED SITE 02/13/2018 Francie Devine 250.00 DIABETES MELLITUS WITHOUT MENTION OF COMPLICATION, TYPE II OR UNSPECIFIED TYPE, NOT STATED UNCONTROLLED 02/13/2018 Francie Devine 401.0 MALIGNANT ESSENTIAL HYPERTENSION 02/13/2018 Francie Devine A 999.39 INFECTION FOLLOWING OTHER INFUSION, INJECTION, TRANSFUSION, OR VACCINATION 02/13/2018 Francie Devine 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SEASES CLASSD ELSWHR 02/13/2018 Francie Devine E11.9 TYPE 2 DIABETES MELLITUS WITHOUT COMPLICATIONS 02/13/2018 Francie Devine I10 ESSENTIAL (PRIMARY) HYPERTENSION 02/13/2018 Sybil, [place] A T81.41XA INFCT FOL A PROC, SUPERFIC INCISIONAL SURGICAL SITE, INIT 04/25/2018 ERIC SCOTT MD Ot Z12.31 ENCNTR SCREEN MAMMOGRAM FOR MALIGNANT NE 04/29/2018 BELLO BRENNER APRN Ot V76.12 OT SCREEN MAMMO-MALIGN NEOPLASM OF YANA 04/29/2018 ERIC DO, TEENA K Ot N63 UNSPECIFIED LUMP IN BREAST 04/29/2018 ERIC SCOTT MD Ot N63 UNSPECIFIED LUMP IN BREAST 04/29/2018 ERIC SCOTT MD Ot N63 UNSPECIFIED LUMP IN BREAST 04/29/2018 ERIC SCOTT MD Ot M17.0 BILATERAL PRIMARY OSTEOARTHRITIS OF KNEE 04/29/2018 ERIC SCOTT MD Ot M23.204 DERANG OF UNSP MEDIAL MENISCUS DUE TO OL 04/29/2018 ERIC SCOTT MD Ot M23.211 DERANG OF ANT HORN OF MEDIAL MENSC D/T O 04/29/2018 ERIC SCOTT MD Ot M23.231 DERANG OF MEDIAL MENISCUS DUE TO OLD TEA 04/29/2018 ERIC SCOTT MD Ot Z12.31 ENCNTR SCREEN MAMMOGRAM FOR MALIGNANT NE 04/30/2018 ERIC SCOTT MD, Ot Z12.31 ENCNTR SCREEN MAMMOGRAM FOR MALIGNANT NE 05/08/2018 Jv Warren 244.9 UNSPECIFIED HYPOTHYROIDISM 05/08/2018 Jv Warren 250.00 DIABETES MELLITUS WITHOUT MENTION OF COMPLICATION, TYPE II OR UNSPECIFIED TYPE, NOT STATED UNCONTROLLED 05/08/2018 Jv Warren 458.9 HYPOTENSION, UNSPECIFIED 05/08/2018 Jv Warren 599.0 URINARY TRACT INFECTION, SITE NOT SPECIFIED 05/08/2018 Jv Warren 780.2 05/08/2018 Jv Warren 780.39 05/08/2018 Jv Warren 999.39 INFECTION FOLLOWING OTHER INFUSION, INJECTION, TRANSFUSION, OR VACCINATION 05/08/2018 Jv Warren E03.9 HYPOTHYROIDISM, UNSPECIFIED 05/08/2018 Jv Warren E11.9 TYPE 2 DIABETES MELLITUS WITHOUT COMPLICATIONS 05/08/2018 Jv Warren I95.9 HYPOTENSION, UNSPECIFIED 05/08/2018 Jv Warren N39.0 URINARY TRACT INFECTION, SITE NOT SPECIFIED 05/08/2018 Jv Warren R55 SYNCOPE AND COLLAPSE 05/08/2018 Jv Warren R56.9 UNSPECIFIED CONVULSIONS 05/08/2018 Jv Warren T81.41XA INFCT FOL A PROC, SUPERFIC INCISIONAL SURGICAL SITE, INIT 05/13/2018 ERIC SCOTT MD, Ot Z12.31 ENCNTR SCREEN MAMMOGRAM FOR MALIGNANT NE 05/29/2018 BELLO BRENNER PATRICK Ot V76.12 OT SCREEN MAMMO-MALIGN NEOPLASM OF YANA 05/29/2018 ERIC DO, TEENA K Ot N63 UNSPECIFIED LUMP IN BREAST 05/29/2018 ERIC SCOTT MD Ot N63 UNSPECIFIED LUMP IN BREAST 05/29/2018 ERIC SCOTT MD, Ot N63 UNSPECIFIED LUMP IN BREAST 05/29/2018 ERIC SCOTT MD Ot M17.0 BILATERAL PRIMARY OSTEOARTHRITIS OF KNEE 05/29/2018 ERIC SCOTT MD, Ot M23.204 DERANG OF UNSP MEDIAL MENISCUS DUE TO OL 05/29/2018 ERIC SCOTT MD Ot M23.211 DERANG OF ANT HORN OF MEDIAL MENSC D/T O 05/29/2018 ERIC SCOTT MD, Ot M23.231 DERANG OF MEDIAL MENISCUS DUE TO OLD TEA 05/29/2018 ERIC SCOTT MD Ot Z12.31 ENCNTR SCREEN MAMMOGRAM FOR MALIGNANT NE 06/04/2018 SAMIA GARCIA MD Ot B95.61 METHICILLIN SUSCEP STAPH INFCT CAUSING D 06/04/2018 SAMIA GARCIA MD, Ot E11.622 TYPE 2 DIABETES MELLITUS WITH OTHER SKIN 06/04/2018 SAMIA GARCIA MD, Ot E66.01 MORBID (SEVERE) OBESITY DUE TO EXCESS CA 06/04/2018 SAMIA GARCIA MD, Ot L98.493 NON-PRS CHRONIC ULCER OF SKIN OF SITES W 06/04/2018 SAMIA GARCIA MD, Ot T81.31XA DISRUPTION OF EXTERNAL OPERATION (SURGIC 06/04/2018 SAMIA GARCIA MD, Ot T85.79XS INFECT/INFLM REACT DUE TO OTH INT PROSTH 06/07/2018 SAMIA GARCIA MD, Ot 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 06/07/2018 SAMIA GARCIA MD, Ot E11.622 TYPE 2 DIABETES MELLITUS WITH OTHER SKIN 06/07/2018 SAMIA GARCIA MD, Ot E66.01 MORBID (SEVERE) OBESITY DUE TO EXCESS CA 06/07/2018 SAMIA GARCIA MD, Ot L98.493 NON-PRS CHRONIC ULCER OF SKIN OF SITES W 06/07/2018 SAMIA GARCIA MD, Ot T81.31XA DISRUPTION OF EXTERNAL OPERATION (SURGIC 06/07/2018 SAMIA GARCIA MD, Ot T85.79XS INFECT/INFLM REACT DUE TO OTH INT PROSTH 06/07/2018 SAMIA GARCIA MD, Ot Z68.42 BODY MASS INDEX (BMI) 45.0-49.9, ADULT 06/12/2018 SAMIA GARCIA MD, Ot B95.61 METHICILLIN SUSCEP STAPH INFCT CAUSING D 06/12/2018 SAMIA GARCIA MD, Ot E11.622 TYPE 2 DIABETES MELLITUS WITH OTHER SKIN 06/12/2018 SAMIA GARCIA MD, Ot E66.01 MORBID (SEVERE) OBESITY DUE TO EXCESS CA 06/12/2018 SAMIA GARCIA MD, Ot L98.493 NON-PRS CHRONIC ULCER OF SKIN OF SITES W 06/12/2018 SAMIA GARCIA MD, Ot T81.31XA DISRUPTION OF EXTERNAL OPERATION (SURGIC 06/12/2018 SAMIA GARCIA MD, Ot T85.79XS INFECT/INFLM REACT DUE TO OTH INT PROSTH 06/14/2018 SAMIA GARCIA MD, Ot 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 06/14/2018 SAMIA GARCIA MD, Ot E11.622 TYPE 2 DIABETES MELLITUS WITH OTHER SKIN 06/14/2018 SAMIA GARCIA MD, Ot E66.01 MORBID (SEVERE) OBESITY DUE TO EXCESS CA 06/14/2018 SAMIA GARCIA MD, Ot L98.493 NON-PRS CHRONIC ULCER OF SKIN OF SITES W 06/14/2018 SAMIA GARCIA MD, Ot T81.31XA DISRUPTION OF EXTERNAL OPERATION (SURGIC 06/14/2018 SAMIA GARCIA MD, Ot T85.79XS INFECT/INFLM REACT DUE TO OTH INT PROSTH 06/14/2018 SAMIA GARCIA MD, Ot Z68.42 BODY MASS INDEX (BMI) 45.0-49.9, ADULT 06/18/2018 BELLO BRENNER APRN Ot V76.12 OTH SCREEN MAMMO-MALIGN NEOPLASM OF YANA 06/18/2018 TEENA ERIC DO Ot N63 UNSPECIFIED LUMP IN BREAST 06/18/2018 ERIC SCOTT MD, Ot N63 UNSPECIFIED LUMP IN BREAST 06/18/2018 ERIC SCOTT MD, Ot N63 UNSPECIFIED LUMP IN BREAST 06/18/2018 ERIC SCOTT MD, Ot M17.0 BILATERAL PRIMARY OSTEOARTHRITIS OF KNEE 06/18/2018 ERIC SCOTT MD, Ot M23.204 DERANG OF UNSP MEDIAL MENISCUS DUE TO OL 06/18/2018 ERIC SCOTT MD, Ot M23.211 DERANG OF ANT HORN OF MEDIAL MENSC D/T O 06/18/2018 ERIC SCOTT MD, Ot M23.231 DERANG OF MEDIAL MENISCUS DUE TO OLD TEA 06/18/2018 ERIC SCOTT MD, Ot Z12.31 ENCNTR SCREEN MAMMOGRAM FOR MALIGNANT NE 06/18/2018 SAMIA GARCIA MD, Ot B95.61 METHICILLIN SUSCEP STAPH INFCT CAUSING D 06/18/2018 SAMIA GARCIA MD, Ot E11.622 TYPE 2 DIABETES MELLITUS WITH OTHER SKIN 06/18/2018 SAMIA GARCIA MD, Ot E66.01 MORBID (SEVERE) OBESITY DUE TO EXCESS CA 06/18/2018 SAMIA GARCIA MD, Ot L98.493 NON-PRS CHRONIC ULCER OF SKIN OF SITES W 06/18/2018 SAMIA GARCIA MD, Ot T81.31XA DISRUPTION OF EXTERNAL OPERATION (SURGIC 06/18/2018 SAMIA GARCIA MD, Ot T85.79XS INFECT/INFLM REACT DUE TO OTH INT PROSTH 06/18/2018 SAMIA GARCIA MD, Ot 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 06/18/2018 SAMIA GARCIA MD, Ot E11.622 TYPE 2 DIABETES MELLITUS WITH OTHER SKIN 06/18/2018 SAMIA GARCIA MD, Ot E66.01 MORBID (SEVERE) OBESITY DUE TO EXCESS CA 06/18/2018 SAMIA GARCIA MD, Ot L98.493 NON-PRS CHRONIC ULCER OF SKIN OF SITES W 06/18/2018 SAMIA GARCIA MD, Ot T81.31XA DISRUPTION OF EXTERNAL OPERATION (SURGIC 06/18/2018 SAMIA GARCIA MD, Ot T85.79XS INFECT/INFLM REACT DUE TO OTH INT PROSTH 06/18/2018 SAMIA GARCIA MD, Ot Z68.42 BODY MASS INDEX (BMI) 45.0-49.9, ADULT 06/18/2018 SAMIA GARCIA MD, Ot 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 06/18/2018 SAMIA GARCIA MD, Ot E11.622 TYPE 2 DIABETES MELLITUS WITH OTHER SKIN 06/18/2018 SAMIA GARCIA MD, Ot E66.01 MORBID (SEVERE) OBESITY DUE TO EXCESS CA 06/18/2018 SAMIA GARCIA MD, Ot L98.493 NON-PRS CHRONIC ULCER OF SKIN OF SITES W 06/18/2018 SAMIA GARCIA MD, Ot T81.31XA DISRUPTION OF EXTERNAL OPERATION (SURGIC 06/18/2018 SAMIA GARCIA MD, Ot T85.79XS INFECT/INFLM REACT DUE TO OTH INT PROSTH 06/20/2018 SAMIA GARCIA MD, Ot 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 06/20/2018 SAMIA GARCIA MD, Ot E11.622 TYPE 2 DIABETES MELLITUS WITH OTHER SKIN 06/20/2018 SAMIA GARCIA MD, Ot E66.01 MORBID (SEVERE) OBESITY DUE TO EXCESS CA 06/20/2018 SAMIA GARCIA MD, Ot L98.493 NON-PRS CHRONIC ULCER OF SKIN OF SITES W 06/20/2018 SAMIA GARCIA MD, Ot T81.31XA DISRUPTION OF EXTERNAL OPERATION (SURGIC 06/20/2018 SAMIA GARCIA MD, Ot T85.79XS INFECT/INFLM REACT DUE TO OTH INT PROSTH 06/20/2018 SAMIA GARCIA MD, Ot Z68.42 BODY MASS INDEX (BMI) 45.0-49.9, ADULT 06/24/2018 SAMIA GARCIA MD, Ot 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 06/24/2018 SAMIA GARCIA MD, Ot E11.622 TYPE 2 DIABETES MELLITUS WITH OTHER SKIN 06/24/2018 SAMIA GARCIA MD, Ot E66.01 MORBID (SEVERE) OBESITY DUE TO EXCESS CA 06/24/2018 SAMIA GARCIA MD, Ot L98.493 NON-PRS CHRONIC ULCER OF SKIN OF SITES W 06/24/2018 SAMIA GARCIA MD, Ot T81.31XA DISRUPTION OF EXTERNAL OPERATION (SURGIC 06/24/2018 SAMIA GARCIA MD, Ot T85.79XS INFECT/INFLM REACT DUE TO OTH INT PROSTH 06/25/2018 SONIA BUTLER ERIC N Ot Z12.31 ENCNTR SCREEN MAMMOGRAM FOR MALIGNANT NE 06/27/2018 SAMIA GARCIA MD, Ot 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 06/27/2018 SAMIA GARCIA MD, Ot E11.622 TYPE 2 DIABETES MELLITUS WITH OTHER SKIN 06/27/2018 SAMIA GARCIA MD, Ot E66.01 MORBID (SEVERE) OBESITY DUE TO EXCESS CA 06/27/2018 SAMIA GARCIA MD, Ot L98.493 NON-PRS CHRONIC ULCER OF SKIN OF SITES W 06/27/2018 SAMIA GARCIA MD, Ot T81.31XA DISRUPTION OF EXTERNAL OPERATION (SURGIC 06/27/2018 SAMIA GARCIA MD, Ot T85.79XS INFECT/INFLM REACT DUE TO OTH INT PROSTH 06/27/2018 SAMIA GARCIA MD, Ot Z68.42 BODY MASS INDEX (BMI) 45.0-49.9, ADULT Procedures Code Description Performed By Performed On RAJIV DARLING 02/27/2013 2000F BLOOD PRESSURE CHECK 03/26/2013 00783 ROUTINE VENIPUNCTURE 08/26/2013 77607 A1C (IN-HOUSE) 08/26/2013 76116 CMP 08/26/2013 57905 LIPID PANEL 08/26/2013 [id number] GFR CALC (RESULT ONLY) 08/26/2013 40053 TSH 08/26/2013 Results Test Result Range TSH+Free T4 - 01/20/16 00:00 TSH 1.490 uIU/mL 0.450-4.500 T4,Free(Direct) 1.57 ng/dL 0.82-1.77 CBC With Differential/Platelet - 01/20/16 00:00 WBC 7.7 x10E3/uL 3.4-10.8 RBC 4.32 x10E6/uL 3.77-5.28 Hemoglobin 13.3 g/dL 11.1-15.9 Hematocrit 40.8 % 34.0-46.6 MCV 94 fL 79-97 MCH 30.8 pg 26.6-33.0 MCHC 32.6 g/dL 31.5-35.7 RDW 12.6 % 12.3-15.4 Platelets 411 x10E3/uL 150-379 Neutrophils 58 % Lymphs 28 % Monocytes 7 % Eos 7 % Basos 0 % Neutrophils (Absolute) 4.4 x10E3/uL 1.4-7.0 Lymphs (Absolute) 2.2 x10E3/uL 0.7-3.1 Monocytes(Absolute) 0.6 x10E3/uL 0.1-0.9 Eos (Absolute) 0.5 x10E3/uL 0.0-0.4 Baso (Absolute) 0.0 x10E3/uL 0.0-0.2 Immature Granulocytes 0 % Immature Grans (Abs) 0.0 x10E3/uL 0.0-0.1 Comp. Metabolic Panel (14) - 01/20/16 00:00 Glucose, Serum 129 mg/dL 65-99 BUN 14 mg/dL 8-27 Creatinine, Serum 0.73 mg/dL 0.57-1.00 eGFR If NonAfricn Am 90 mL/min/1.73 >59 eGFR If Africn Am 104 mL/min/1.73 >59 BUN/Creatinine Ratio 19 11-26 Sodium, Serum 142 mmol/L 134-144 Potassium, Serum 4.5 mmol/L 3.5-5.2 Chloride, Serum 101 mmol/L 97-108 Carbon Dioxide, Total 23 mmol/L 18-29 Calcium, Serum 9.3 mg/dL 8.7-10.3 Protein, Total, Serum 7.7 g/dL 6.0-8.5 Albumin, Serum 3.9 g/dL 3.6-4.8 Globulin, Total 3.8 g/dL 1.5-4.5 A/G Ratio 1.0 1.1-2.5 Bilirubin, Total 1.2 mg/dL 0.0-1.2 Alkaline Phosphatase, S 55 IU/L 39-117 AST (SGOT) 19 IU/L 0-40 ALT (SGPT) 12 IU/L 0-32 Lipid Panel - 01/20/16 00:00 Cholesterol, Total 129 mg/dL 100-199 Triglycerides 81 mg/dL 0-149 HDL Cholesterol 49 mg/dL >39 VLDL Cholesterol Shaji 16 mg/dL 5-40 LDL Cholesterol Calc 64 mg/dL 0-99 HCV RT-PCR, Quant (Non-Graph) - 01/20/16 00:00 Hepatitis C Quantitation TNP IU/mL Test Information: Comment Request Problem - 01/20/16 00:00 Request Problem TNP TSH+Free T4 - 01/20/16 11:28 TSH TNP uIU/mL T4,Free(Direct) TNP CBC With Differential/Platelet - 01/20/16 11:28 WBC TNP x10E3/uL RBC TNP Hemoglobin TNP Hematocrit TNP Platelets TNP Neutrophils TNP Lymphs TNP Monocytes TNP Eos TNP Lymphs (Absolute) TNP Eos (Absolute) TNP Baso (Absolute) TNP Comp. Metabolic Panel (14) - 01/20/16 11:28 Glucose, Serum TNP mg/dL BUN TNP Creatinine, Serum TNP Sodium, Serum TNP Potassium, Serum TNP Chloride, Serum TNP Carbon Dioxide, Total TNP Calcium, Serum TNP Protein, Total, Serum TNP Albumin, Serum TNP Bilirubin, Total TNP Alkaline Phosphatase, S TNP AST (SGOT) TNP ALT (SGPT) TNP Lipid Panel - 01/20/16 11:28 Cholesterol, Total TNP mg/dL Triglycerides TNP HDL Cholesterol TNP HCV RT-PCR, Quant (Non-Graph) - 01/20/16 11:28 Hepatitis C Quantitation HCV Not Detected IU/mL Test Information: Comment Request Problem - 01/20/16 11:28 Request Problem TNP CBC With Differential/Platelet - 02/18/16 00:00 WBC 9.7 x10E3/uL 3.4-10.8 RBC 4.09 x10E6/uL 3.77-5.28 Hemoglobin 12.6 g/dL 11.1-15.9 Hematocrit 39.7 % 34.0-46.6 MCV 97 fL 79-97 MCH 30.8 pg 26.6-33.0 MCHC 31.7 g/dL 31.5-35.7 RDW 14.2 % 12.3-15.4 Platelets 467 x10E3/uL 150-379 Neutrophils 41 % Lymphs 44 % Monocytes 11 % Eos 4 % Basos 0 % Neutrophils (Absolute) 4.0 x10E3/uL 1.4-7.0 Lymphs (Absolute) 4.3 x10E3/uL 0.7-3.1 Monocytes(Absolute) 1.1 x10E3/uL 0.1-0.9 Eos (Absolute) 0.3 x10E3/uL 0.0-0.4 Baso (Absolute) 0.0 x10E3/uL 0.0-0.2 Immature Granulocytes 0 % Immature Grans (Abs) 0.0 x10E3/uL 0.0-0.1 CBC With Differential/Platelet - 10/20/16 00:00 WBC 7.0 x10E3/uL 3.4-10.8 RBC 4.77 x10E6/uL 3.77-5.28 Hemoglobin 14.7 g/dL 11.1-15.9 Hematocrit 45.0 % 34.0-46.6 MCV 94 fL 79-97 MCH 30.8 pg 26.6-33.0 MCHC 32.7 g/dL 31.5-35.7 RDW 14.6 % 12.3-15.4 Platelets 384 x10E3/uL 150-379 Neutrophils 41 % Lymphs 40 % Monocytes 10 % Eos 8 % Basos 1 % Neutrophils (Absolute) 2.9 x10E3/uL 1.4-7.0 Lymphs (Absolute) 2.9 x10E3/uL 0.7-3.1 Monocytes(Absolute) 0.7 x10E3/uL 0.1-0.9 Eos (Absolute) 0.5 x10E3/uL 0.0-0.4 Baso (Absolute) 0.1 x10E3/uL 0.0-0.2 Immature Granulocytes 0 % Immature Grans (Abs) 0.0 x10E3/uL 0.0-0.1 Comp. Metabolic Panel (14) - 10/20/16 00:00 Glucose, Serum 116 mg/dL 65-99 BUN 12 mg/dL 8-27 Creatinine, Serum 0.98 mg/dL 0.57-1.00 eGFR If NonAfricn Am 62 mL/min/1.73 >59 eGFR If Africn Am 72 mL/min/1.73 >59 BUN/Creatinine Ratio 12 12-28 Sodium, Serum 141 mmol/L 134-144 Potassium, Serum 4.2 mmol/L 3.5-5.2 Chloride, Serum 100 mmol/L 96-106 Carbon Dioxide, Total 24 mmol/L 18-29 Calcium, Serum 9.7 mg/dL 8.7-10.3 Protein, Total, Serum 8.6 g/dL 6.0-8.5 Albumin, Serum 4.1 g/dL 3.6-4.8 Globulin, Total 4.5 g/dL 1.5-4.5 A/G Ratio 0.9 1.2-2.2 Bilirubin, Total 0.4 mg/dL 0.0-1.2 Alkaline Phosphatase, S 61 IU/L 39-117 AST (SGOT) 29 IU/L 0-40 ALT (SGPT) 12 IU/L 0-32 HCV RT-PCR, Quant (Non-Graph) - 10/20/16 00:00 Hepatitis C Quantitation HCV Not Detected IU/mL Test Information: Comment Hematopath Consultation, Smear - 11/17/16 12:44 WBC Normal RBC Normal PLTs Comment Pathologist Comment TSH - 04/20/17 12:34 TSH >150.00 mIU/L 0.40-4.50 HEP C PCR QUANT (Graph)-APPROVAL REQUIRED - 06/27/17 09:41 HCV RNA, QUANTITATIVE REAL TIME PCR <15 NOT DETECTED IU/mL NOT DETECTED HCV RNA, QUANTITATIVE REAL TIME PCR <1.18 NOT DETECTED Log IU/mL NOT DETECTED COMMENT NRG TSH - 09/26/17 14:08 TSH 2.33 mIU/L 0.40-4.50 Protime - 12/30/17 01:01 INR 1.0 1.0-4.0 Protime 11.9 Results Repeated w/ New Sample Sec 9.9- 12.8 Urinalysis - 12/30/17 05:17 Icotest N/A Negative Urine Volume Urine Volume Sufficient (10mL) Urine Yeast No Yeast present Urine-Appearance Cloudy Clear Urine-Bacteria 4+ Urine-Bilirubin Negative Negative Urine-Blood Negative Negative Urine-Color Yellow Colorless-Lt. Yellow Urine-Epithelial Cells 10-20/HPF Urine-Glucose Negative Negative Urine-Ketones 1+ Negative Urine-Leukocytes Trace Negative Urine-Mucus 1+ Urine-Nitrite Positive Negative Urine-Other Culture to follow Urine-pH 6.5 5-8.5 Urine-Protein 1+ Negative Urine-RBC 0-2/HPF Urine-Specific [place] 1.025 1.000-1.030 Urine-WBC 10-20/HPF Urobilinogen 1.0 0.2-1.0 Urine Culture - 12/30/17 05:28 PRELIM CULTURE RESULTS <10,000 Gram Positive and Gram Negative Mixed Deisy [id number] Skin Contaminant FINAL CULTURE RESULTS <10,000 Gram Positive and Gram Negative Mixed Deisy [id number] Skin Contaminant [id number] Further Workup done MEDIA PLATED Setup at 05:30 on 12/30/2017 CULTURE SOURCE void XM (2) LRPC - 12/30/17 11:40 CROSSMATCH COMPATIBLE X 2 Hct 44.6 % 36.0-46.0 Hgb 14.1 g/dL 13.0-15.0 Urine Culture - 12/30/17 12:04 PRELIM CULTURE RESULTS No Growth 24 hours FINAL CULTURE RESULTS No Growth 48 hours CULTURE SOURCE [facility] - 12/30/17 14:14 Surg Path Sent to [place] [facility] - 12/31/17 06:25 Anion Gap 12 6-14 BUN 19 mg/dL 5-25 Calcium 8.1 mg/dL 8.3-10.4 Chloride 112 mmol/L 95-114 CO2 21 mEq/L 22-33 Creat 1.63 mg/dL 0.50-1.50 eGFR 32 mL/min/1.73m2 >59 Glucose 171 mg/dL 70-110 Osmo 297 280-295 Potassium 4.3 mmol/L 3.5-5.3 Sodium 141 mmol/L 134-148 [facility] - 12/31/17 14:00 Anion Gap 11 6-14 BUN 20 mg/dL 5-25 Calcium 8.4 mg/dL 8.3-10.4 Chloride 112 mmol/L 95-114 CO2 24 mEq/L 22-33 Creat 1.90 mg/dL 0.50-1.50 eGFR 27 mL/min/1.73m2 >59 Glucose 167 mg/dL 70-110 Osmo 301 280-295 Potassium 4.4 mmol/L 3.5-5.3 Sodium 143 mmol/L 134-148 [facility] - 01/01/18 05:15 Anion Gap 12 6-14 BUN 22 mg/dL 5-25 Calcium 8.3 mg/dL 8.3-10.4 Chloride 113 mmol/L 95-114 CO2 22 mEq/L 22-33 Creat 1.56 mg/dL 0.50-1.50 eGFR 34 mL/min/1.73m2 >59 Glucose 177 mg/dL 70-110 Osmo 302 280-295 Potassium 4.3 mmol/L 3.5-5.3 Sodium 143 mmol/L 134-148 [facility] - 01/02/18 07:00 Anion Gap 12 6-14 BUN 19 mg/dL 5-25 Calcium 8.5 mg/dL 8.3-10.4 Chloride 114 mmol/L 95-114 CO2 21 mEq/L 22-33 Creat 1.14 mg/dL 0.50-1.50 eGFR 48 mL/min/1.73m2 >59 Glucose 135 mg/dL 70-110 Osmo 299 280-295 Potassium 3.8 mmol/L 3.5-5.3 Sodium 143 mmol/L 134-148 [facility] - 01/04/18 07:00 Anion Gap 13 6-14 BUN 7 mg/dL 5-25 Calcium 8.8 mg/dL 8.3-10.4 Chloride 114 mmol/L 95-114 CO2 20 mEq/L 22-33 Creat 0.85 mg/dL 0.50-1.50 eGFR 68 mL/min/1.73m2 >59 Glucose 134 mg/dL 70-110 Osmo 295 280-295 Potassium 3.5 mmol/L 3.5-5.3 Sodium 143 mmol/L 134-148 Comprehensive Metabolic Panel - 02/03/18 18:15 Albumin 3.2 g/dL 3.6-5.1 ALP 74 U/L 35-130 ALT 16 U/L 6-45 Anion Gap 15 6-14 AST 26 U/L 2-40 BUN 17 mg/dL 5-25 Calcium 8.6 mg/dL 8.3-10.4 Chloride 105 mmol/L 95-114 CO2 24 mEq/L 22-33 Creat 0.83 mg/dL 0.50-1.50 eGFR 70 mL/min/1.73m2 >59 Globulin 4.1 g/dL 2.3-3.5 Glucose 111 mg/dL 70-110 Osmo 291 280-295 Potassium 3.9 mmol/L 3.5-5.3 Sodium 140 mmol/L 134-148 TBil 0.5 mg/dL 0.2-1.2 TP 7.3 g/dL 6.0-8.3 Blood Culture - 02/03/18 18:15 PRELIM CULTURE RESULTS Blood Culture Negative, No Growth Day 1 FINAL CULTURE RESULTS Blood Culture Negative, No Growth Day 5 MEDIA PLATED Setup at 18:27 on 02/03/[id number] Culture Media Position A11 CULTURE SOURCE Drawn via IV start @ Right arm Blood Culture - 02/03/18 18:20 PRELIM CULTURE RESULTS Blood Culture Negative, No Growth Day 1 FINAL CULTURE RESULTS Blood Culture Negative, No Growth Day 5 MEDIA PLATED Setup at 18:27 on 02/03/[id number] Culture Media Position A12 CULTURE SOURCE Drawn @ Left Arm Other Culture - 02/03/18 20:45 PRELIM CULTURE RESULTS Abundant Staphylococcus aureus. Susceptibility to follow. MEDIA PLATED Setup at 20:50 on 02/03/2018 Sensi - 02/03/18 20:45 FINAL CULTURE RESULTS Methicillin Resistant Staphylococcus aureus ( Isolate 1) Ampicillin/Sulbactam 16/8 Ampicillin >8 Amoxicillin/K Clavulanate >4/2 Ceftriaxone 32 Clindamycin <=0.5 Cefoxitin Screen >4 Ciprofloxacin >2 Daptomycin <=0.5 Erythromycin >4 Nitrofurantoin <=32 Gentamicin <=4 Gentamicin Synergy Screen N/R Inducible Clindamycin <=4/0.5 Levofloxacin >4 Linezolid 2 Moxifloxacin 2 Oxacillin >2 Penicillin >8 Rifampin <=1 Streptomycin Synergy N/R Synercid <=0.5 Trimethoprim/ Sulfamethoxazole <=0.5/9.5 Tetracycline <=4 Vancomycin 1 BMP - 02/04/18 05:20 Anion Gap 13 6-14 BUN 13 mg/dL 5-25 Calcium 8.4 mg/dL 8.3-10.4 Chloride 107 mmol/L 95-114 CO2 24 mEq/L 22-33 Creat 0.80 mg/dL 0.50-1.50 eGFR 73 mL/min/1.73m2 >59 Glucose 134 mg/dL 70-110 Osmo 291 280-295 Potassium 4.0 mmol/L 3.5-5.3 Sodium 140 mmol/L 134-148 MRSA Screen - 02/04/18 05:25 FINAL CULTURE RESULTS MRSA Negative Nasal Culture MEDIA PLATED Setup at 05:35 on 02/04/2018 Anaerobic Culture - 02/04/18 09:48 Anaerobic Culture Note Other Culture - 02/04/18 09:48 PRELIM CULTURE RESULTS Abundant Staphylococcus aureus. Susceptibility to follow. MEDIA PLATED Setup at 11:12 on 02/04/2018 Sensi - 02/04/18 09:48 FINAL CULTURE RESULTS Methicillin Resistant Staphylococcus aureus ( Isolate 1) Ampicillin/Sulbactam >16/8 Ampicillin >8 Amoxicillin/K Clavulanate >4/2 Ceftriaxone 32 Clindamycin <=0.5 Cefoxitin Screen >4 Ciprofloxacin >2 Daptomycin 1 Erythromycin >4 Nitrofurantoin <=32 Gentamicin <=4 Gentamicin Synergy Screen N/R Inducible Clindamycin <=4/0.5 Levofloxacin >4 Linezolid 4 Moxifloxacin 2 Oxacillin >2 Penicillin >8 Rifampin <=1 Streptomycin Synergy N/R Synercid <=0.5 Trimethoprim/ Sulfamethoxazole 04/27 Tetracycline <=4 Vancomycin 2 Anaerobic Culture - 02/04/18 09:48 ANAEROBIC CULTURE FINAL REPORT RESULT 1 NO ANAEROBIC GROWTH IN 72 HOURS. [facility] - 02/05/18 07:30 Anion Gap 15 6-14 BUN 9 mg/dL 5-25 Calcium 8.9 mg/dL 8.3-10.4 Chloride 107 mmol/L 95-114 CO2 22 mEq/L 22-33 Creat 0.88 mg/dL 0.50-1.50 eGFR 65 mL/min/1.73m2 >59 Glucose 193 mg/dL 70-110 Osmo 293 280-295 Potassium 3.7 mmol/L 3.5-5.3 Sodium 140 mmol/L 134-148 [facility] - 02/06/18 07:12 Anion Gap 17 6-14 BUN 9 mg/dL 5-25 Calcium 8.5 mg/dL 8.3-10.4 Chloride 109 mmol/L 95-114 CO2 20 mEq/L 22-33 Creat 0.80 mg/dL 0.50-1.50 eGFR 73 mL/min/1.73m2 >59 Glucose 153 mg/dL 70-110 Osmo 295 280-295 Potassium 3.9 mmol/L 3.5-5.3 Sodium 142 mmol/L 134-148 C.difficile, DNA Amplification - 02/12/18 14:50 C.difficile, DNA Amplification NEGATIVE: No DNA evidence of toxogenic C. difficile detected. Negative Other Culture - 03/01/18 10:20 PRELIM CULTURE RESULTS Moderate Gram Positive ROXANNA / ID to Follow MEDIA PLATED Setup at 13:34 on 03/01/2018 Sensi - 03/01/18 10:20 FINAL CULTURE RESULTS Methicillin Resistant Staphylococcus aureus ( Isolate 1) Ampicillin/Sulbactam >16/8 Ampicillin >8 Amoxicillin/K Clavulanate >4/2 Ceftriaxone 32 Clindamycin >4 Cefoxitin Screen >4 Ciprofloxacin >2 Daptomycin 1 Erythromycin >4 Nitrofurantoin 64 Gentamicin <=4 Gentamicin Synergy Screen N/R Inducible Clindamycin N/R Levofloxacin >4 Linezolid 4 Moxifloxacin 4 Oxacillin >2 Penicillin >8 Rifampin >2 Streptomycin Synergy N/R Synercid <=0.5 Trimethoprim/ Sulfamethoxazole >2/38 Tetracycline <=4 Vancomycin 2 TSH - 03/19/18 10:27 TSH 138.69 mIU/L 0.40-4.50 Other Culture - 04/01/18 14:00 FINAL CULTURE RESULTS Moderate Coag Positive Staph, ROXANNA/ID Follows MEDIA PLATED Setup at 15:00 on 04/01/2018 Sensi - 04/01/18 14:00 FINAL CULTURE RESULTS Methicillin Resistant Staphylococcus aureus ( Isolate 1) Ampicillin/Sulbactam >16/8 Ampicillin >8 Amoxicillin/K Clavulanate >4/2 Ceftriaxone 32 Clindamycin <=0.5 Cefoxitin Screen >4 Ciprofloxacin >2 Daptomycin <=0.5 Erythromycin >4 Nitrofurantoin <=32 Gentamicin <=4 Gentamicin Synergy Screen N/R Inducible Clindamycin <=4/0.5 Levofloxacin >4 Linezolid 4 Moxifloxacin 4 Oxacillin >2 Penicillin >8 Rifampin <=1 Streptomycin Synergy N/R Synercid <=0.5 Trimethoprim/ Sulfamethoxazole 04/27 Tetracycline <=4 Vancomycin 2 Thyroid Stimulating Hormone - 04/25/18 09:30 TSH 45.53 mIU/mL 0.32-5.00 Sed Rate - 05/08/18 12:36 Sed Rate 71 mm/hr 9-15 Urinalysis - 05/08/18 14:51 Icotest N/A Negative Urine Volume Urine Volume Sufficient (10mL) Urine-Appearance Clear Clear Urine-Bacteria 1+ Urine-Bilirubin Negative Negative Urine-Blood Negative Negative Urine-Color Yellow Colorless-Lt. Yellow Urine-Epithelial Cells 10-20/HPF Urine-Glucose Negative Negative Urine-Ketones Trace Negative Urine-Leukocytes Trace Negative Urine-Mucus 1+ Urine-Nitrite Negative Negative Urine-Other Urine Saved if Culture Needed (48hrs from time of collection) Urine-pH 5.5 5-8.5 Urine-Protein Negative Negative Urine-RBC 2-5/HPF Urine-Specific [place] 1.020 1.000-1.030 Urine-WBC 5-10/HPF Urobilinogen 0.2 E.U./dL 0.2-1.0 Blood Culture - 05/08/18 15:00 PRELIM CULTURE RESULTS Blood Culture Negative, No Growth Day 1 FINAL CULTURE RESULTS Blood Culture Negative, No Growth Day 5 MEDIA PLATED Blood Culture Media Position C49 CULTURE SOURCE [facility] Blood Culture - 05/08/18 15:00 PRELIM CULTURE RESULTS Blood Culture Negative, No Growth Day 1 MEDIA PLATED Blood Culture Media Position C49 CULTURE SOURCE [facility] Blood Culture - 05/08/18 15:15 PRELIM CULTURE RESULTS Blood Culture Negative, No Growth Day 1 FINAL CULTURE RESULTS Blood Culture Negative, No Growth Day 5 MEDIA PLATED Blood Culture Media Position C44 CULTURE SOURCE [facility] Blood Culture - 05/08/18 15:15 PRELIM CULTURE RESULTS Blood Culture Negative, No Growth Day 1 MEDIA PLATED Blood Culture Media Position C44 CULTURE SOURCE [facility] Arterial Blood Gas - 05/08/18 16:39 Base -6.00 mmol/L 1.80-4.20 HCO3 20 mmol/L 20-31 O2 Sat 93 RM AIR % 95-100 pCO2 35 mm/Hg 35-45 pH 7.36 7.35-7.45 PO2 71 mm/Hg 80-95 Lactic Acid - 05/08/18 16:42 Lactic Acid 9.1 mg/dL 4.5-19.8 Gram stain microscopy - 05/29/18 10:30 Gram stain microscopy Few Gram negative bacilli NRG Bacteria identification in wound by culture - 05/29/18 10:30 Bacteria identification in wound by culture [id number] NRG FREE TEXT EXTERNAL SUSCEPTIBILITY REPORTED 06-05-18 16:05 NRG QUANTITY OF GROWTH Many NRG MRSA AGAR METHICILLIN-RESISTANT NRG FREE TEXT ENTRY 2 LEVOFLOXACIN ROXANNA >16 NO INTERP NRG CALL POSITIVES (F1 HELP) CALLED TO JOSUÉ/KARLA 06-03-2018, 0919/KD NRG PBP2 NO INDUCIBLE CLINDAMYCIN RESISTANCE NRG RML Sensitivity Panel - 05/29/18 10:30 Oxacillin susceptibility test by minimum inhibitory concentration R NRG Clindamycin susceptibility test by minimum inhibitory concentration <= NRG Erythromycin susceptibility test by minimum inhibitory concentration > NRG Trimethoprim/sulfamethoxazole susceptibility test by minimum inhibitoryconcentration R NRG Vancomycin susceptibility test by minimum inhibitory concentration 1 NRG Levofloxacin susceptibility test by minimum inhibitory concentration > NRG Rifampin susceptibility test by minimum inhibitory concentration <= NRG Cefazolin susceptibility test by minimum inhibitory concentration > NRG Linezolid susceptibility test by minimum inhibitory concentration 2 NRG Penicillin G susceptibility test by minimum inhibitory concentration > NRG Moxifloxacin susceptibility test by minimum inhibitory concentration S NRG Minocycline susc ROXANNA <= NRG RML Sensitivity Panel - 05/29/18 10:30 Gentamicin susceptibility test by minimum inhibitory concentration S NRG Clindamycin susceptibility test by minimum inhibitory concentration > NRG Erythromycin susceptibility test by minimum inhibitory concentration > NRG Trimethoprim/sulfamethoxazole susceptibility test by minimum inhibitoryconcentration S NRG Vancomycin susceptibility test by minimum inhibitory concentration 0.5 NRG Ceftriaxone susceptibility test by minimum inhibitory concentration > NRG Meropenem susceptibility test by minimum inhibitory concentration R NRG Linezolid susceptibility test by minimum inhibitory concentration 0.5 NRG Penicillin G susceptibility test by minimum inhibitory concentration R NRG Doxycycline > NRG Gram stain microscopy - 06/19/18 08:29 Gram stain microscopy No bacteria seen NRG Bacteria identification in wound by culture - 06/19/18 08:29 Bacteria identification in wound by culture [id number] NRG FREE TEXT EXTERNAL NO SUSCEPTIBILITY PERFORMED NRG QUANTITY OF GROWTH Rare NRG FREE TEXT ENTRY 2 A SEGNIS ID REPORT RCD 06/24 17:05 NRG RML Sensitivity Panel - 06/19/18 08:29 Gentamicin susceptibility test by minimum inhibitory concentration < = NRG Trimethoprim/sulfamethoxazole susceptibility test by minimum inhibitoryconcentration <= NRG Levofloxacin susceptibility test by minimum inhibitory concentration <= NRG Ampicillin susceptibility test by minimum inhibitory concentration > NRG Cefazolin susceptibility test by minimum inhibitory concentration 2 NRG Ceftriaxone susceptibility test by minimum inhibitory concentration <= NRG Piperacillin/tazobactam susceptibility test by minimum inhibitory concentration = NRG Ciprofloxacin susceptibility test by minimum inhibitory concentration <= NRG Meropenem susceptibility test by minimum inhibitory concentration < = NRG Amoxicillin and clavulanate potassium susc ROXANNA <= NRG Imipenem susceptibility test by minimum inhibitory concentration <= NRG Encounters ACCT No. Visit Date/Time Discharge Status Pt. Type Provider Facility Loc./Unit Complaint [id number] 08/26/2013 10:54:00 08/26/2013 23:59:59 CLS Outpatient ERIC SCOTT MD [id number] 03/26/2013 14:49:00 03/26/2013 23:59:59 CLS Outpatient TEENA ERIC DO [id number] 02/26/2013 14:13:00 02/26/2013 23:59:59 CLS Outpatient ERIC SCOTT MD [id number] 06/26/2018 08:10:00 06/26/2018 23:59:59 CLS Outpatient SAMIA GARCIA MD [facility] [id number] 06/19/2018 08:10:00 06/19/2018 23:59:59 CLS Outpatient SAMIA GARCIA MD [facility] [id number] 06/12/2018 08:07:00 06/12/2018 23:59:59 CLS Outpatient SAMIA GARCIA MD [facility] [id number] 06/05/2018 08:07:00 06/05/2018 23:59:59 CLS Outpatient SAMIA GARCIA MD [facility] [id number] 05/29/2018 09:26:00 05/29/2018 23:59:59 CLS Outpatient SAMIA GARCIA MD [facility] [id number] 04/29/2018 09:41:00 04/29/2018 23:59:59 CLS Outpatient ERIC SCOTT MD [facility] RAD SCREENING [id number] 02/01/2018 12:05:00 02/01/2018 23:59:59 CLS Preadmit ERIC SCOTT MD [facility] RAD BREAST CANCER SCREENING [id number] 12/29/2017 23:57:00 12/30/2017 00:21:00 DIS Emergency FIDEL MARTINEZ MD [facility] ER HERNIA PAIN [id number] 06/14/2017 13:01:00 06/14/2017 23:59:59 CLS Outpatient ERIC SCOTT MD [facility] RAD LOCKING OF LT KNEE [id number] 08/27/2015 07:33:00 08/27/2015 23:59:59 CLS Outpatient ERIC SCOTT MD [facility] RAD BREAST NODULE [id number] 03/02/2015 12:36:00 03/02/2015 23:59:59 CLS Outpatient ERIC SCOTT MD [facility] RAD LEFT BREAST MASS [id number] 02/09/2015 11:46:00 02/09/2015 23:59:59 CLS Outpatient TEENA ERIC DO [facility] RAD LEFT BREAST NODULE [id number] 12/12/2014 18:40:00 12/12/2014 19:35:00 DIS Emergency GILL CESPEDES INVESTIGATIVE SHOPPER [facility] ER SHINGLES SYMPTOMS [id number] 10/26/2014 10:20:00 10/26/2014 23:59:59 CLS Outpatient BELLO BRENNER INVESTIGATIVE SHOPPER [facility] RAD SCREENING [id number] 08/07/2014 14:22:00 08/07/2014 16:01:00 DIS Emergency GILL CESPEDES APRN [facility] ER DENTAL BLEEDING [id number] 04/20/2014 15:16:00 04/20/2014 18:57:00 DIS Emergency GILL CESPEDES INVESTIGATIVE SHOPPER [facility] ER HEAD/CHEST CONTESTION, COUGH,BOCY ACHES [id number] 05/08/2018 12:25:00 Document Registration [id number] 02/08/2018 16:25:00 Document Registration [id number] 10/22/2016 16:05:00 Document Registration [id number] 05/23/2018 11:40:00 05/23/2018 23:59:59 CLS Outpatient ERIC SCOTT [facility] [id number] 03/19/2018 10:00:00 Document Registration [id number] 09/26/2017 14:20:00 Document Registration [id number] 06/27/2017 09:40:00 Document Registration [id number] 04/20/2017 11:20:00 Document Registration [id number] 11/21/2016 15:12:00 Document Registration [id number] 02/19/2016 07:06:00 Document Registration [id number] 01/25/2016 18:05:00 Document Registration [id number] 05/08/2018 12:25:00 05/08/2018 20:50:00 [facility] [id number] 04/25/2018 10:00:00 04/25/2018 23:59:00 DIS Outpatient Eric Scott N [id number] 04/23/2018 11:17:00 04/23/2018 23:59:00 DIS Outpatient Francie Devine [id number] 04/01/2018 14:38:00 04/01/2018 23:59:00 DIS Outpatient Francie Devine [id number] 03/01/2018 13:25:00 03/01/2018 23:59:00 DIS Outpatient Eric Scott N [id number] 02/08/2018 10:00:00 02/13/2018 15:45:00 DIS Inpatient Sybil [facility] [id number] 02/03/2018 17:48:00 02/08/2018 10:00:00 DIS Inpatient [facility] [id number] 01/02/2018 13:00:00 01/05/2018 14:54:00 DIS Inpatient [facility] ICU [id number] 12/30/2017 13:57:00 01/02/2018 13:00:00 DIS Inpatient [facility] ICU [id number] 05/14/2018 12:16:48 Document Registration [id number] 02/15/2018 10:11:21 Document Registration [id number] 12/30/2017 02:50:33 Document Registration [id number] 12/13/2014 03:10:25 ACT Document Registration [id number] 01/24/2016 13:05:00 Document Registration
--- NOTE | 2018-07-01 17:27 | NUR ---
DR STEWART HERE TO SEE PT.
--- NOTE | 2018-07-01 18:11 | Consultation ---
History of Present Illness History of Present Illness Patient Consulted On(chip/time) 07/01/18 18:03 Time Seen by Provider: 17:02 History of Present Illness Surgery asked to consult regarding fistula. HPI: pt presented to ER with complaints of large amounts of fluid "coming out hole on stomach". She stated it was raw and 10/10 painful. She has history of Hernia surgery in December and then developed an abscess in January; which was drained and left open. Since that time she had been seeing outpt wound care. Last she developed small hole with "leakage" and was sent directly up to ; they sent her back the same night. surgeons told her to eat and they would do surgery 6 months after second surgery. Today she said they got about 1900ml of fluid out and have seen fully formed noodles from chicken noodle soup and fully formed "but green" cottage cheese. ER sent her over to wound care and then wound care called me to see pt. She states she has had "eight" surgeries for hernia repair. Her biggest complaint beside the fluid is how raw and painful her stomach is......"I have a high tolerance for pain and this brought me to my knees, its so bad". Allergies and Home Medications Allergies Coded Allergies: No Known Drug Allergies (Unverified , 07/18/07) Home Medications Acyclovir 800 Mg Tablet, 800 MG PO QID Prescribed by: GILL CESPEDES on 12/12/141905 Amoxicillin/Clavulanate K 875 Mg Tab, 1 TAB PO BID Prescribed by: GILL CESPEDES on 08/07/14 1514 Bisoprol/Hydrochlorothiazide 1 Tab Tablet, 1 TAB PO DAILY, (Reported) Cefdinir 300 Mg Capsule, 1 EACH PO BID Prescribed by: GILL CESPEDES on 04/20/14 1851 Guaifenesin/Codeine Phos 120 Ml Liquid, 5-10 ML PO Q6H Prescribed by: GILL CESPEDES on 04/20/14 1611 Hydrocodone Bit/Acetaminophen 1 Each Tablet, 1 EA PO Q6H PRN for MILD PAIN Prescribed by: GILL CESPEDES on 08/07/14 1514 Hydrocodone/Acetaminophen 1 Each Tablet, 1 EACH PO Q4H PRN for PAIN Prescribed by: GILL CESPEDES on 12/12/14 190 Metformin Hcl 1,000 Mg Tablet, 1 EACH PO BID WITH MEALS, (Reported) Oxycodone HCl 5 Mg Capsule, 5 MG PO Q6H PRN for PAIN Prescribed by: GILL CESPEDES on 12/12/14 1908 Oxymetazoline Hcl 15 Ml Duncan, 2-3 SPRAY NS PER PACKAGE INSTR Prescribed by: GILL CESPEDES on 04/20/14 1611 Paroxetine Hcl 20 Mg Tablet, 20 MG PO DAILY, (Reported) Patient Home Medication List Home Medication List Reviewed: Yes Past Wvfricq-Lcfjbj-Laqqcy Hx Patient Social History Alcohol Use: Denies Use Recreational Drug Use: No Smoking Status: Never a Smoker Recent Foreign Travel: No Contact w/Someone Who Travel: No Recent Infectious Disease Expo: No Recent Hopitalizations: Yes Immunizations Up To Date Tetanus Booster (TDap): Unknown Surgeries History of Surgeries: Yes (TUBAL, 1 OPEN EXPLORATORY, 4 HERNIA REPAIRS ) Respiratory History of Respiratory Disorde: No Cardiovascular History of Cardiac Disorders: No Cardiac Disorders: Hypertension Neurological History of Neurological Disord: No Reproductive System Hx Reproductive Disorders: No Genitourinary History of Genitourinary Disor: No Gastrointestinal History of Gastrointestinal Di: Yes (FISTULA, HERNIA WITH MESH) Gastrointestinal Disorders: Hepatitis Musculoskeletal History of Musculoskeletal Dis: Yes Musculoskeletal Disorders: Arthritis Endocrine History of Endocrine Disorders: Yes Endocrine Disorders: Hypothyroidsim HEENT History of HEENT Disorders: No Cancer History of Cancer: No Psychosocial History of Psychiatric Problem: No Integumentary History of Skin or Integumenta: No Blood Transfusions History of Blood Disorders: No Family Medical History Significant Family History: Heart Disease (mother had CHF), Renal Disease (son) Physical Exam-General Problems Physical Exam Vital Signs Vital Signs - First Documented 07/01/18 17:08 Temp 98.3 Pulse 103 Resp 16 B/P (MAP) 117/71 (86) Pulse Ox 95 O2 Delivery Room Air Capillary Refill : Less Than 3 Seconds General Appearance: WD/WN, mild distress Eyes: Bilateral Eye PERRL, Bilateral Eye EOMI Respiratory: lungs clear, normal breath sounds, no respiratory distress, no accessory muscle use Cardiovascular: regular rate, rhythm, no edema, no murmur Gastrointestinal: other (appx 6-8cm diameter hole with visible mesh and 1 1/2 cm fistula appears to be small bowel at 6 o'clock ) Neurologic/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 I also explained my reasons behind NPO, TPN and then surgery. They were very happy and thanked me; because I was the first to explain everything and they were able to understand. I wrote orders for PICC line and TPN to be done tomorrow at outpatient Same Day Surgery. This consult was mainly time based, only minimal physical exam and ROS done. MANDA STEWART DO Jul 01, 2018 18:11
--- NOTE | 2018-07-01 18:18 | ED Suture Removal/Wound Check ---
Suture/Wound Re-check Suture Removal/Wound Recheck : Progress 1818: The patient was sent back over from wound care for surgical evaluation. Dr. Costa has contacted Dr. Stewart and he will be evaluating the patient in the emergency room. The patient denies any change from previous visit. General Appearance: WD/WN, no apparent distress Physical Exam Vital Signs Vital Signs - First Documented 07/01/18 17:08 Temp 98.3 Pulse 103 Resp 16 B/P (MAP) 117/71 (86) Pulse Ox 95 O2 Delivery Room Air Capillary Refill : Less Than 3 Seconds General Appearance: WD/WN, no apparent distress Cardiovascular: normal peripheral pulses, regular rate, rhythm, no edema, no gallop, no JVD, no murmur Respiratory: chest non-tender, lungs clear, normal breath sounds, no respiratory distress, no accessory muscle use Gastrointestinal: normal bowel sounds, non tender, soft, no organomegaly, no pulsatile mass Neurologic/Psychiatric: alert, normal mood/affect, oriented x 3 Skin: normal color, warm/dry Skin Problem Location: torso Skin Problem Character: other (scarring from previous abdominal wound has a beefy red protrusion that is leaking yellow bile-colored drainage. The surrounding tissue is macerated.) Departure Communication (PCP) 1824: Dr. Stewart is here to see and evaluate the patient. He has written outpatient orders for PICC line placement TPN, and additional wound care. The patient will receive TPN and PICC line tomorrow at the outpatient center. The patient agrees with plan of care, plans for discharge, return precautions were given. Impression Primary Impression: Fistula of small intestine Disposition: 01 HOME, SELF-CARE Condition: Stable/Unchanged Departure-Patient Inst. Decision time for Depature: 18:17 Referrals: MANDA TSEWART BETHANY N MD (PCP/Family) Primary Care Physician Patient Instructions: Wound Care (DC) Add. Discharge Instructions: Continue to change the packing frequently. Use the A&D ointment that was provided to you by the wound clinic for the surrounding tissue. Show up tomorrow at the outpatient center at 10 AM for PICC line and TPN consult. Return back to the emergency room for worsening symptoms or concerns as needed. Follow-up with Dr. Schuster as needed. All discharge instructions reviewed with patient and/or family. Voiced understanding. BALTAZAR CASTRO Jul 01, 2018 18:18
[2018-07-01 18:36] VITALS: BP 117/71
== END 2018-07-01 18:36 | disposition home or self-care (01) ==
LOC: EDUNIT# 17:07 → ER 17:08
DX: K63.2 Fistula of intestine (principal); Z98.890 Other specified postprocedural states
CPT/HCPCS: 99282

== ENCOUNTER → 2018-07-01 | Outpatient (CLI) | payer MEDICARE ==
[~2018-07-01] MED LIST changes: +OXC5T PO; -OXYC5CAP18 PO
== END ==
LOC: WOUNDCARE 15:37
PROVIDERS: ATTEND Surgery
DX: L24.5 Irritant contact dermatitis due to other chemical products (principal); K63.2 Fistula of intestine; T81.31XA Disruption of external operation (surgical) wound, not elsewhere classified, initial encounter; E11.622 Type 2 diabetes mellitus with other skin ulcer; L98.493 Non-pressure chronic ulcer of skin of other sites with necrosis of muscle; T85.79XS Infection and inflammatory reaction due to other internal prosthetic devices, implants and grafts, sequela; E66.01 Morbid (severe) obesity due to excess calories; Z68.42 Body mass index [BMI] 45.0-49.9, adult
CPT/HCPCS: 99213

== ENCOUNTER → 2018-07-02 | Outpatient (CLI) | payer MEDICARE ==
[~2018-07-02] VITALS: Ht 160 cm; Wt 106.6 kg
[~2018-07-02] MED LIST changes: +1/2 NS IV SOLUTION 1,000 ML IV SCH; +CATHETER FLUSH 10 ML SYR IV PRN; +LACTATED RINGERS 1,000 ML IV ONE; +LACTATED RINGERS 1,000 ML IV SCH; +PATIENT MAY USE OWN MEDS, ALL PO SCH; +POTASSIUM CHLORIDE IV SCH; +SODIUM ACETATE IV SCH; +SODIUM CHLORIDE IV SCH; +SODIUM PHOSPHATE IV SCH; +[UNRECOGNIZED DRUG - OTHER] IV SCH; +[UNRECOGNIZED DRUG - OTHER] IV SCH; +inSUlin ASPART (NovoLOG) 1 UNIT/0.01 ML (CHARGE PER UNIT) SC SCH
[2018-07-02 09:45] VITALS: BP 121/85
--- NOTE | 2018-07-02 09:50 | NUR ---
PT ASSISTED TO BED. REPORTS INCREASING WEAKNESS FOR THE PAST WEEK, SINCE SHE HAS BEEN ABLE TO MAINTAIN ANY NUTRITIONAL INTAKE. C/O DIZZINESS
--- NOTE | 2018-07-02 11:00 | NUR ---
CONSULTING WITH CLOUD DEVELOPER, DIETARY, PHARMACY FOR INITIATION OF TPN.
--- NOTE | 2018-07-02 11:11 | Diagnostic Imaging Report ---
INDICATION: PICC line placement. Portable chest 10:56 a.m. Heart size and pulmonary vascularity are normal. Lungs are clear. There are no effusions or pneumothoraces. PICC line tip projects over the SVC. IMPRESSION: Negative chest. Dictated by: Dictated on workstation # [id number]
--- NOTE | 2018-07-02 12:30 | NUR ---
PT ET FAMILY REPORT PT IS UNABLE TO GET AROUND HER HOUSE. SHE IS SITTING IN A RECLINER ET CAN ONLY TRANSFER TO A COMMODE RIGHT BESIDE HER.
[2018-07-02 13:00] VITALS: BP 105/65
[2018-07-02] MEDS: AA 4.25% W/LYTES IN D5W IV SOL 1,000 ML IV SCH ×2 (13:30→18:53)
--- NOTE | 2018-07-02 16:45 | NUR ---
PT AWAKE, STATES SHE ROLLED TO HER SIDE SLIGHTLY AFTER WAKING FROM NAP AND ABDOMINAL DRESSING IS NOW SATURATED WITH COPIOUS AMOUNT OF YELLOW GREEN, FOUL SMELLING DRAINAGE , ALONG WITH WOUND DRAINAGE ON GOWN. DRESSING CHANGED WITH STERILE 4X4'S AND X2 ABD'S WITH MINIMAL SKIN CONTACT WITH MEDIPORE TAPE. ABD AND SUPRAPUBIC SKIN AROUND OPEN ABDOMINAL WOUND VERY EXCORIATED, RED, AND PT REPORTS PAINFUL. STERILE WATER ON 4X4 GAUZE USED TO CLEANSE SKIN GENTLY BEFORE APPLICATION OF NEW DRESSING. CROTCH AREA OF MESH HOSPITAL PANTIES CUT TO CREATE TUBULAR MESH SUPPORT TO HOLD DRESSINGS IN PLACE. GOWN CHANGED. UP TO BSC WITH ASSIST, VOIDED DARK YELLOW URINE, THEN ASSISTED TO FOR TRANSPORT TO [facility] MED/SURG. C/O FEELING LIGHTHEADED WHEN UP. CLINIMIX INFUSING TO RIGHT UPPER ARM PICC ORDERED AT 125 ML/HR PER PUMP. ASSISTED TO BED ON ARRIVAL TO [facility] AND REPORT TO Keon VALLE RN. CARE OF PT TRANSFERRED TO [facility] MED/SURG.
--- NOTE | 2018-07-02 17:00 | NUR ---
DR STEWART HERE TO SEE PT. ORDERS RECEIVED FOR OBSERVATION ADMISSION TO [facility] MED/SUR[facility].
--- NOTE | 2018-07-02 17:30 | NUR ---
CHANDRAKANT TOMAS admitted to room 408-1, with an admitting diagnosis of fistula, gen weakness, PER W/C from DAY SURG , accompanied by GOODS LAYER.THOMCHANDRAKANT Canelo introduced to surroundings, call light, bed controls, phone, TV, temperature control, lights, meal times, smoking policy, visitor policy, side rail policy, bathrooms and showers. Patient Rights given to patient in the handbook. TINYDESIREECHANDRAKANT Canelo verbalizes understanding that [facility] is not responsible for the loss or damage to any personal effects or valuables that are kept in the patients posession during their hospitalization. The following Patient Care Plans were discussed with the PT: Discharge Planning, PAIN, HIGH RISK FL VOL DEFICIT, AND HIGH RISK INFECTION. TINYDESIREECHANDRAKANT Canelo verbalizes understanding of Interdisciplinary Patient Education. Patient and/or family were informed about the Rapid Response Team and its purpose. CAME TO FLOOR FROM DAY SURG AFTER DAY RESEARCH ANALYST PUT PICC LINE IN L UPPER ARM(SINGLE LUMEN) REPORT WAS CALLED TO THIS RN FROM [facility] RODRIGO
--- NOTE | 2018-07-02 18:01 | NUR ---
CM/SS, respond to consult for new TPN via PICC for 2-6 months due to fistula. Referral has been completed with [facility], [place]. Benefits through [employer] have been checked there by Vanessa, patient will have a 20% co-pay regardless of provider until her deductible of $4900 is met. Vanessa reports patient current deductible balance shows $579. Patient was updated about this out of pocket cost. Patient has fistula with weakness and deconditioning. Initialization of TPN to be formulated. She is being assessed for acute IRF, requiring a pre-authorization process. Tentative plan for acute OBS admission for assessment of presenting problems with care planning to be continued for post hospital care in the home.
[2018-07-02 18:05] VITALS: BP 103/70
[2018-07-02 18:19] VITALS: BP 103/70
[2018-07-02] MEDS: ENOXAPARIN 40 MG/0.4 ML (LOVENOX) SYR SC SCH (18:54)
[2018-07-02 19:47] VITALS: BP 105/71
[2018-07-03 00:15] VITALS: BP 112/75
[2018-07-03] MEDS: AA 4.25% W/LYTES IN D5W IV SOL 1,000 ML IV SCH ×2 (03:05→12:00)
[2018-07-03 04:37] VITALS: BP 104/56
[2018-07-03] MEDS: ENOXAPARIN 40 MG/0.4 ML (LOVENOX) SYR SC SCH ×2 (06:00→19:33)
[2018-07-03 06:13] LABS: BASOPHILS % (AUTO) 0 % (0-10); EOSINOPHILS # (AUTO) 0.7 10^3/uL (0.0-0.3); EOSINOPHILS % (AUTO) 9 % (0-10); HEMATOCRIT 41 % (35-52); HEMOGLOBIN 13.2 G/DL (11.5-16.0); LYMPHOCYTES # (AUTO) 2.5 X 10^3 (1.0-4.0); LYMPHOCYTES % (AUTO) 31 % (12-44); MEAN CORPUSCULAR HEMOGLOBIN 30 PG (25-34); MEAN CORPUSCULAR HGB CONC 32 G/DL (32-36); MEAN CORPUSCULAR VOLUME 93 FL (80-99); MEAN PLATELET VOLUME 9.5 FL (7.4-10.4); MONOCYTES # (AUTO) 1.2 X 10^3 (0.0-1.0); MONOCYTES % (AUTO) 15 % (0-12); NEUTROPHILS # (AUTO) 3.7 X 10^3 (1.8-7.8); NEUTROPHILS % (AUTO) 46 % (42-75); PLATELET COUNT 500 10^3/uL (130-400); WHITE BLOOD COUNT 8.1 10^3/uL (4.3-11.0)
[2018-07-03 06:32] LABS: ALANINE AMINOTRANSFERASE 21 U/L (0-55); ALBUMIN 3.5 GM/DL (3.2-4.5); ALKALINE PHOSPHATASE 54 U/L (40-136); BILIRUBIN,TOTAL 0.8 MG/DL (0.1-1.0); BUN/CREATININE RATIO 31; CALCIUM 9.8 MG/DL (8.5-10.1); CARBON DIOXIDE 21 MMOL/L (21-32); CHLORIDE 104 MMOL/L (98-107); CREATININE SERUM 0.83 MG/DL (0.60-1.30); GFR ESTIMATED > 60; GLUCOSE 127 MG/DL (70-105); PHOSPHORUS 4.4 MG/DL (2.3-4.7); POTASSIUM 4.4 MMOL/L (3.6-5.0); SODIUM 138 MMOL/L (135-145); TOTAL PROTEIN 7.5 GM/DL (6.4-8.2)
[2018-07-03 08:00] VITALS: BP 114/58
--- NOTE | 2018-07-03 08:50 | Physical Therapy Evaluation ---
PT Evaluation-General Medical Diagnosis Admission Date Medical Diagnosis: fistula, general weakness Onset Date: Jul 02, 2018 Therapy Diagnosis Therapy Diagnosis: impaired mobility, strength, endurance Height/Weight Height (Feet): 5 Height (Inches): 3.00 Weight (Pounds): 230 Weight (Ounces): 4.8 Precautions Precautions/Isolations: Contact Isolation Weight Bear Status Right Lower Extremity: Right Weight Bearing/Tolerated Left Lower Extremity: Left Weight Bearing/Tolerated Referral Physician: Dionicio Hallman DO Reason for Referral: Evaluation/Treatment Social History Current Living Status: Significant Other Entry Into Home: Stairs With Railing PT Steps Into Home: 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 Prior/Core FIM Prior Level of Function Therapy Code Descriptions/Definitions Functional [place] Measure: 0=Not Assessed/NA 4=Minimal Assistance 1=Total Assistance 5=Supervision or Setup 2=Maximal Assistance 6=Modified [place] 3=Moderate Assistance 7=Complete [place] Therapy Quality Codes: 6 Independent with activity with or without an assistive device 5 Patient requires set up or clean up by helper. Patient completes activity by themselves 4 Supervision or touching assist (CGA). [place] provide cues , steadying assist 3 The helper provides less than half the effort to complete the activity 2 The helper provides more than half the effort to complete the activity 1 Dependent. The helper does all the effort to complete an activity 7 Patient refused to complete or attempt activity 9 The patient did not perform the activity before the current illness or injury 88 Not attempted due to Medical conditions or safety concerns Functional Abilities and Goals: Independent: Patient completed the activities by him/herself, with or without an assistive device, with no assistance from a helper. Needed Some Help: Patient needed partial assistance from another person to complete activities. Dependent: A helper completed the activities for the patient. Unknown: Not Applicable: Bed Mobility: 6 Transfers (B,C,W/C) (FIM): 6 Gait: 6 Stairs: 6 Indoor Mobility (Ambulation): Independent Stairs: Independent Patient states she was using a rolling walker previously. PT Evaluation-Current Subjective Patient in bed pre tx, agrees to PT, has 5/10 pain in knee and low back due to arthritis patient states, she says she doesn't have much pain in her abdomen. Pt/Family Goals "to get stronger so she can go home" Objective Patient Orientation: Person, Place, Situation Attachments: IV ROM/Strength ROM Lower Extremities WNL except patient does not have full knee extension bilaterally Strength Lower Extremities 4/5 gross bilateral lower extremities Neuromuscular (Tone, Coordination, Reflexes) NT Sensory Vision: Functional Hearing: Functional Sensation Right Lower Extremit: Intact Sensation Left Lower Extremity: Intact Transfers Therapy Code Descriptions/Definitions Functional [place] Measure: 0=Not Assessed/NA 4=Minimal Assistance 1=Total Assistance 5=Supervision or Setup 2=Maximal Assistance 6=Modified [place] 3=Moderate Assistance 7=Complete [place] Transfers (B, C, W/C) (FIM): 4 Scootin Rollin Supine to/from Sit: 4 Sit to/from Stand: 5 Patient needed min assist for supine to sit but was able to perform sit to supine with SBA. Gait Mode of Locomotion: Walk Anticipated Mode of Locomotion: Walk Gait (FIM): 2 Distance: 100' Gait Persons Needed: 1 Gait Assistive Device: FWW Comments/Gait Description Steady but slow ambulation, no LOB or SOB. Balance Sitting Static: Normal Sitting Dynamic: Normal Standing Static: Fair Standing Dynamic: Fair Treatment supine LE exercises x15 (AP, HS) Assessment/Needs Patient has impaired mobility, strength, endurance. Gait was steady but slow. Rehab Potential: Fair PT Short Term Goals Short Term Goals Time Frame: Jul 10, 2018 Transfers (B,C,W/C) (FIM): 6 Gait (FIM): 6 Gait Distance Comment: 150' Gait Level of Assist: 6 Gait Assistive Device: FWW PT Plan Problem List Problem List: Activity Tolerance, Functional Strength, Safety, Balance, Gait, Transfer, Bed Mobility Treatment/Plan Treatment Plan: Continue Plan of Care Treatment Plan: Bed Mobility, Education, Functional Activity Marcelina, Functional Strength, Gait, Safety, Therapeutic Exercise, Transfers Treatment Duration: Jul 10, 2018 Frequency: 6 times per week Estimated Hrs Per Day: .25 hour per day (15-30') Patient and/or Family Agrees t: Yes Safety Risks/Education Patient Education: Gait Training, Transfer Techniques, Correct Positioning, Safety Issues Teaching Recipient: Patient Teaching Methods: Demonstration, Discussion Response to Teaching: Reinforcement Needed Discharge Recommendations Plan Patient will perform bed mobility and transfer training, balance and endurance training, functional strengthening, stair training, gait training, and education , to improve functional mobility and independence at home. Therapy D/C Recommendations: Home w/ Family Support Time/GCodes Time In: 0830 Time Out: 844 Total Billed Treatment Time: 15 Total Billed Treatment 1 visit FINA Gloria' PRUDENCIO AVILA PT Jul 03, 2018 08:50
--- NOTE | 2018-07-03 09:32 | History & Physical-Surgical ---
History of Present Illness History of Present Illness Reason for visit/HPI This is a late entry note; I saw patient yesterday, but I am doing the note today. 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 She was set up to have PICC line placement with possible TPN. However, she has been getting weaker and she is malnourished. She couldn't even transfer from the wheelchair to the bed without assist. In addition, we are unable to get TPN set up and send home with home health. Therefore, patient needed be admitted for nutrition , IV fluids and fistula control. While here we would be able to work on physical therapy, occupational therapy and setting up home health TPN. Pt stated she was still getting copiuos amounts of fluid out of fistula and draining all over her abdomen. Date of Admission 07/02/18 Date Seen by a Provider: Jul 02, 2018 Time Seen by a Provider: 16:41 I consulted on this patient on Attending Physician Dionicio Stewart DO Admitting Physician Mamie Schuster MD Consult Allergies and Home Medications Allergies Coded Allergies: No Known Drug Allergies (Unverified , 07/18/07) Home Medications Acyclovir 800 Mg Tablet, 800 MG PO QID Prescribed by: GILL CESPEDES on 12/12/141905 Amoxicillin/Clavulanate K 875 Mg Tab, 1 TAB PO BID Prescribed by: GILL CESPEDES on 08/07/14 151 Bisoprol/Hydrochlorothiazide 1 Tab Tablet, 1 TAB PO DAILY, (Reported) Cefdinir 300 Mg Capsule, 1 EACH PO BID Prescribed by: GILL CESPEDES on 04/20/14 185 Guaifenesin/Codeine Phos 120 Ml Liquid, 5-10 ML PO Q6H Prescribed by: GILL CESPEDES on 04/20/14 1611 Hydrocodone Bit/Acetaminophen 1 Each Tablet, 1 EA PO Q6H PRN for MILD PAIN Prescribed by: GILL CESPEDES on 08/07/14 151 Hydrocodone/Acetaminophen 1 Each Tablet, 1 EACH PO Q4H PRN for PAIN Prescribed by: GILL CESPEDES on 12/12/14 190 Metformin Hcl 1,000 Mg Tablet, 1 EACH PO BID WITH MEALS, (Reported) Oxycodone HCl 5 Mg Capsule, 5 MG PO Q6H PRN for PAIN Prescribed by: GILL CESPEDES on 9/5/15 1908 Oxymetazoline Hcl 15 Ml [place], 2-3 SPRAY NS PER PACKAGE INSTR Prescribed by: GILL CESPEDES on 04/20/14 1611 Paroxetine Hcl 20 Mg Tablet, 20 MG PO DAILY, (Reported) Patient Home Medication List Home Medication List Reviewed: Yes Past Dzqefqt-Ckymzv-Bkkhkp Hx Patient Social History Alcohol Use: Denies Use Recreational Drug Use: No Recent Foreign Travel: No Contact w/Someone Who Travel: No Recent Infectious Disease Expo: No Recent Hopitalizations: Yes Physical Abuse Screen: No Sexual Abuse: No Immunizations Up To Date Tetanus Booster (TDap): Unknown Date of Pneumonia Vaccine: Jan 07, 2018 Date of Influenza Vaccine: Jan 07, 2018 Surgeries History of Surgeries: Yes (TUBAL, 1 OPEN EXPLORATORY, 4 HERNIA REPAIRS ) Surgeries: Abdominal Respiratory History of Respiratory Disorde: No Cardiovascular History of Cardiac Disorders: No Cardiac Disorders: Hypertension Neurological History of Neurological Disord: No Reproductive System Hx Reproductive Disorders: No Genitourinary History of Genitourinary Disor: No Gastrointestinal History of Gastrointestinal Di: Yes (FISTULA, HERNIA WITH MESH) Gastrointestinal Disorders: Hepatitis Musculoskeletal History of Musculoskeletal Dis: Yes Musculoskeletal Disorders: Arthritis Endocrine History of Endocrine Disorders: Yes Endocrine Disorders: Hypothyroidsim HEENT History of HEENT Disorders: No Cancer History of Cancer: No Psychosocial History of Psychiatric Problem: No Integumentary History of Skin or Integumenta: No Blood Transfusions History of Blood Disorders: No Family Medical History Significant Family History: Heart Disease, Renal Disease Review of Systems Constitutional: dizziness; No fever; malaise, weakness, weight loss EENTM: No blurred vision, No eye pain, No mouth swelling, No epistaxis Respiratory: No cough, No dyspnea on exertion, No hemoptysis Cardiovascular: No chest pain, No edema, No palpitations Gastrointestinal: abdominal pain; No constipation, No diarrhea, No hematemesis Genitourinary: No dysuria, No frequency, No hematuria Musculoskeletal: back pain, joint pain, muscle stiffness Skin: change in color, lesions, other (erosion from fistula drainage) Psychiatric/Neurological: Denies Anxiety, Denies Depressed, Denies Tingling, Denies Tremors Physical Exam Vital Signs Vital Signs - First Documented 07/02/18 07/02/18 09:45 18:05 Temp 97.2 Pulse 101 Resp 18 B/P (MAP) 121/85 Pulse Ox 94 O2 Delivery Room Air Capillary Refill : Less Than 3 Seconds Height, Weight, BMI Height: 5'3.00" Weight: 230lbs. 4.8oz. [id number]; 40.6 BMI Method:Stated General Appearance: Chronically ill, Mild Distress, Obese Eyes: Bilateral Eye PERRL, Bilateral Eye EOMI HEENT: Pharynx Normal, Moist Mucous Membranes; No Scleral Icterus (L), No Scleral Icterus (R) Neck: Full Range of Motion, Normal Inspection, Non Tender, Supple Respiratory: Chest Non Tender, Lungs Clear, Normal Breath Sounds, No Accessory Muscle Use, No Respiratory Distress Cardiovascular: Regular Rate, Rhythm, No Edema, No Gallop, No JVD, No Murmur Gastrointestinal: Other (large opening on abdomen, with fistula and bilious drainage) Back: No CVA Tenderness, No Vertebral Tenderness Extremity: Normal Capillary Refill, Non Tender, No Calf Tenderness, No Pedal Edema Neurologic/Psychiatric: Alert, Oriented x3, No Motor/Sensory Deficits, Normal Mood/Affect, 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 fold 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 II-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 Norm as Tested Skin: Other (large erosion all below open fistula) Lymphatic: No Adenopathy (neck, axilla or groin) Data Review Labs Laboratory Tests 07/03/18 05:57: White Blood Count 8.1, Red Blood Count 4.41, Hemoglobin 13.2, Hematocrit 41, Mean Corpuscular Volume 93, Mean Corpuscular Hemoglobin 30, Mean Corpuscular Hemoglobin Concent 32, Red Cell Distribution Width 13.0, Platelet Count 500H, Mean Platelet Volume 9.5, Neutrophils (%) (Auto) 46, Lymphocytes (%) (Auto) 31, Monocytes (%) (Auto) 15H, Eosinophils (%) (Auto) 9, Basophils (%) (Auto) 0, Neutrophils # (Auto) 3.7, Lymphocytes # (Auto) 2.5, Monocytes # (Auto) 1.2H, Eosinophils # (Auto) 0.7H, Basophils # (Auto) 0.0, Sodium Level 138, Potassium Level 4.4, Chloride Level 104, Carbon Dioxide Level 21, Anion Gap 13, Blood Urea Nitrogen 26H, Creatinine 0.83, Estimat Glomerular Filtration Rate > 60, BUN /Creatinine Ratio 31, Glucose Level 127H, Calcium Level 9.8, Corrected Calcium 10.2H, Phosphorus Level 4.4, Magnesium Level 2.0, Total Bilirubin 0.8, Aspartate Amino Transf (AST/SGOT) 24, Alanine Aminotransferase (ALT/SGPT) 21, Alkaline Phosphatase 54, Total Protein 7.5, Albumin 3.5 Assessment/Plan Assessment/Plan Admission Diagonsis Enterocutaneous Fistula Malnutrition Weakness Admission Status: Observation Assessment/Plan Enterocutaneous Fistula Malnutrition Weakness Patiently admitted and we can start TPN. We will start on 327 and in the meantime she'll be on Clindamax. Have ordered consults for physical therapy occupational therapy as well as social work. She may get admitted to the adult rehabilitation unit and then hopefully home health once we get her little bit stronger. Clinical Quality Measures DVT/VTE Risk/Contraindication: Risk Factor Score Per Nursin RFS Level Per Nursing on Admit: 4+=Very High DIONICIO STEWART DO Jul 03, 2018 09:32
--- NOTE | 2018-07-03 10:01 | Progress Note ---
Subjective Time Seen by a Provider: 09:33 Subjective/Events-last exam Pt seen and examined; states she feels better than yesterday, "not as lightheaded". She report she was able to walk about 40 feet with walker and PT , but "I felt very weak when I got back in bed". Pt denies abdominal pain, but is still having a fairly large amount of fluid our of fistula "about very 2-3 hours". Review of Systems General: No Chills, No Night Sweats HEENT: No Head Aches Pulmonary: No Dyspnea, No Cough Cardiovascular: No: Chest Pain, Palpitations Neurological: Weakness Objective Exam Vital Signs Date Time Temp Pulse Resp B/P (MAP) Pulse Ox O2 Delivery O2 Flow Rate FiO2 07/03/18 08:00 97.6 91 18 114/58 (76) 95 Room Air 07/03/18 04:37 97.5 104 18 104/56 (72) 93 Room Air 07/03/18 00:15 98.4 90 20 112/75 (87) 96 Room Air 07/02/18 20:00 Room Air 07/02/18 19:47 98.2 98 18 105/71 (82) 97 Room Air 07/02/18 18:19 97.2 100 18 103/70 98 Room Air 07/02/18 18:05 97.2 100 18 103/70 (81) 98 Room Air 07/02/18 17:45 96 Room Air 07/02/18 13:00 95 16 105/65 (78) 96 Room Air I & O 07/03/18 07:00 Intake Total 1000 ml Output Total 350 ml Balance 650 ml Capillary Refill : Less Than 3 Seconds General Appearance: Chronically ill, Mild Distress, Obese HEENT: Pharynx Normal, Moist Mucous Membranes; No Scleral Icterus (L), No Scleral Icterus (R) Neck: Supple Respiratory: Chest Non Tender, Lungs Clear, Normal Breath Sounds, No Accessory Muscle Use, No Respiratory Distress Cardiovascular: Regular Rate, Rhythm, No Edema, No Murmur Extremity: Normal Capillary Refill, Non Tender, No Calf Tenderness, No Pedal Edema Neurologic/Psychiatric: Alert, Oriented x3, No Motor/Sensory Deficits, Normal 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, 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 Norm as Tested Skin: Other (large erosion all below open fistula) Results Lab Laboratory Tests 3/27/19 05:57: White Blood Count 8.1, Red Blood Count 4.41, Hemoglobin 13.2, Hematocrit 41, Mean Corpuscular Volume 93, Mean Corpuscular Hemoglobin 30, Mean Corpuscular Hemoglobin Concent 32, Red Cell Distribution Width 13.0, Platelet Count 500H, Mean Platelet Volume 9.5, Neutrophils (%) (Auto) 46, Lymphocytes (%) (Auto) 31, Monocytes (%) (Auto) 15H, Eosinophils (%) (Auto) 9, Basophils (%) (Auto) 0, Neutrophils # (Auto) 3.7, Lymphocytes # (Auto) 2.5, Monocytes # (Auto) 1.2H, Eosinophils # (Auto) 0.7H, Basophils # (Auto) 0.0, Sodium Level 138, Potassium Level 4.4, Chloride Level 104, Carbon Dioxide Level 21, Anion Gap 13, Blood Urea Nitrogen 26H, Creatinine 0.83, Estimat Glomerular Filtration Rate > 60, BUN /Creatinine Ratio 31, Glucose Level 127H, Calcium Level 9.8, Corrected Calcium 10.2H, Phosphorus Level 4.4, Magnesium Level 2.0, Total Bilirubin 0.8, Aspartate Amino Transf (AST/SGOT) 24, Alanine Aminotransferase (ALT/SGPT) 21, Alkaline Phosphatase 54, Total Protein 7.5, Albumin 3.5 Assessment/Plan Assessment/Plan Assessment/Plan Enterocutaneous Fistula Malnutrition Weakness PT is working with pt, TPN scheduled to start today. I talked with pt about the fact that it would take a while for fistula output to decrease; when that occurs the area on her stomach should start to heal and we may be able to get some device on to catch any output. SW working on getting her to ARU. Clinical Quality Measures DVT/VTE Risk/Contraindication: Risk Factor Score Per Nursin RFS Level Per Nursing on Admit: 4+=Very High MANDA STEWART DO Jul 03, 2018 10:01
--- NOTE | 2018-07-03 11:55 | NUR ---
IRF Evaluation: Order received to evaluate patient for the ARU. This worker familiar with patient as ARU was requested to speak with patient, yesterday in day surgery. PT evaluation reviewed and it appears patient would benefit from further therapy in order to return home safely. [facility] prior authorization process initiated. Thank you for this referral. Addendum: 07/03/18 at 1619 by JULY Mckinley PEARSON Received denial for admission to ARU, from [facility]. CM/MICHEL notified.
[2018-07-03 12:00] VITALS: BP 113/59
--- NOTE | 2018-07-03 15:10 | Occupational Therapy Eval ---
OT Evaluation-General/PLF Medical Diagnosis Admission Date Medical Diagnosis: fistula, general weakness Onset Date: Jul 02, 2018 Therapy Diagnosis Therapy Diagnosis: decreased self care skills Height/Weight Height (Feet): 5 Height (Inches): 3.00 Weight (Pounds): 230 Weight (Ounces): 4.8 Precautions Precautions/Isolations: Contact Isolation Safety Interventions: None Referral Physician: Dionicio Hallman DO Medical History Pertinent Medical History: Arthritis, HTN, Hypothroidism Additional Medical History 4 hernia repairs, hepatitis Reviewed History: Yes Social History Home: Multilevel (stays on the main level) Current Living Status: Spouse (Pt states spouse is a splicer machine operator and is only home on the weekends) Entry Into Home: Stairs With Railing Steps Into Home: 5 ADL-Prior Level of Function Therapy Code Descriptions/Definitions Functional [place] Measure: 0=Not Assessed/NA 4=Minimal Assistance 1=Total Assistance 5=Supervision or Setup 2=Maximal Assistance 6=Modified [place] 3=Moderate Assistance 7=Complete [place] Therapy Quality Codes: 6 Independent with activity with or without an assistive device 5 Patient requires set up or clean up by helper. Patient completes activity by themselves 4 Supervision or touching assist (CGA). Ector provide cues , steadying assist 3 The helper provides less than half the effort to complete the activity 2 The helper provides more than half the effort to complete the activity 1 Dependent. The helper does all the effort to complete an activity 7 Patient refused to complete or attempt activity 9 The patient did not perform the activity before the current illness or injury 88 Not attempted due to Medical conditions or safety concerns Functional Abilities and Goals: Independent: Patient completed the activities by him/herself, with or without an assistive device, with no assistance from a helper. Needed Some Help: Patient needed partial assistance from another person to complete activities. Dependent: A helper completed the activities for the patient. Unknown: Not Applicable: ADL PLOF Comments Pt reports being independent, but having increasing difficulty since last week. Uses walker for mobility. Self Care: Independent DME/Equipment: Reachers, Shower, Sock Aid, Tall Toilet Drive Self: Yes OT Current Status Subjective Pt in bed, agrees to therapy. States she is feeling a little better today. Reports "arthritis pain", but does not rate Mental Status/Objective Patient Orientation: Person, Place, Situation Attachments: IV Current Upper Extremity ROM Grossly functional Upper Extremity Coordination Intact Upper Extremity Sensation Intact ADL-Treatment ADL-Current Pt supine to sit with minimal assistance. Pt unable to doff/don socks without assist at this time, but states she has a senior project accountant and sock aid at home that she can use. Pt completed grooming tasks with set up while seated EOB. Sit to stand with supervision. Pt demonstrates ability to perform transfer with SBA. Pt back to bed with SBA. Resting in bed with needs met after session. Therapy Code Descriptions/Definitions Functional [place] Measure: 0=Not Assessed/NA 4=Minimal Assistance 1=Total Assistance 5=Supervision or Setup 2=Maximal Assistance 6=Modified Winn 3=Moderate Assistance 7=Complete Winn Therapy Quality Codes: 6 Independent with activity with or without an assistive device 5 Patient requires set up or clean up by helper. Patient completes activity by themselves 4 Supervision or touching assist (CGA). Ector provide cues , steadying assist 3 The helper provides less than half the effort to complete the activity 2 The helper provides more than half the effort to complete the activity 1 Dependent. The helper does all the effort to complete an activity 7 Patient refused to complete or attempt activity 9 The patient did not perform the activity before the current illness or injury 88 Not attempted due to Medical conditions or safety concerns Education OT Patient Education: Rehab process Teaching Recipient: Patient Teaching Methods: Discussion Response to Teaching: Verbalize Understanding OT Short Term Goals Short Term Goals Transfers (B,C,W/C) (FIM): 6 1=Demonstrate adherence to instructed precautions during ADL tasks. 2=Patient will verbalize/demonstrate understanding of assistive devices/ modifications for ADL. 3=Patient will improve strength/tolerance for activity to enable patient to perform ADL's. OT Social Service Coordinator Goals Social Service Coordinator Goals Time Frame: Jul 17, 2018 Grooming(FIM): 6 Bathing(FIM): 6 Upper Body Dressing(FIM): 6 Lower Body Dressing(FIM): 6 Toileting(FIM): 6 Toilet/Commode Transfer(FIM): 6 Additional Goals: 1-Demonstrate ADL Tasks, 2-Verbalize Understanding, 3- ImproveStrength/Marcelina 1=Demonstrate adherence to instructed precautions during ADL tasks. 2=Patient will verbalize/demonstrate understanding of assistive devices/ modifications for ADL. 3=Patient will improve strength/tolerance for activity to enable patient to perform ADL's. OT Education/Plan Problem List/Assessment Assessment: Decreased Activ Tolerance, Decreased UE Strength, Dependent Transfers, Impaired Self-Care Skills Pt to benefit from skilled OT intervention for ADL training, transfers, and strengthening to increase level of function and allow safe return home. Discharge Recommendations Plan/Recommendations: Continue POC Treatment Plan/Plan of Care Treatment,Training & Education: Yes Patient would benefit from OT for education, treatment and training to promote independence in ADL's, mobility, safety and/or upper extremity function for ADL' s. Plan of Care: ADL Retraining, Functional Mobility, UE Funct Exercise/Act Treatment Duration: Jul 17, 2018 Frequency: 5 times per week Estimated Hrs Per Day: .25 hour per day Agreement: Yes Rehab Potential: Good Time/GCodes Start Time: 11:00 Stop Time: 11:16 Total Time Billed (hr/min): 16 Billed Treatment Time 1 visitFINA(16minutes) RUBIN BERNAL OT Jul 03, 2018 15:10
[2018-07-03 15:52] VITALS: BP 122/58
[2018-07-03] MEDS: 1/2 NS IV SOLUTION 1,000 ML IV SCH (17:10)
[2018-07-03] MEDS: inSUlin ASPART (NovoLOG) 1 UNIT/0.01 ML (CHARGE PER UNIT) SC SCH ×2 (18:49→23:18)
[2018-07-03 20:00] VITALS: BP 105/60
[2018-07-04] VITALS: BP 130/77
[2018-07-04] MEDS: 1/2 NS IV SOLUTION 1,000 ML IV SCH ×2 (02:30→11:13)
[2018-07-04 04:00] VITALS: BP 108/55
[2018-07-04 06:21] LABS: ALANINE AMINOTRANSFERASE 23 U/L (0-55); ALBUMIN 3.3 GM/DL (3.2-4.5); ALKALINE PHOSPHATASE 57 U/L (40-136); BILIRUBIN,TOTAL 0.5 MG/DL (0.1-1.0); BUN/CREATININE RATIO 31; CALCIUM 9.7 MG/DL (8.5-10.1); CARBON DIOXIDE 19 MMOL/L (21-32); CHLORIDE 107 MMOL/L (98-107); CREATININE SERUM 0.74 MG/DL (0.60-1.30); GFR ESTIMATED > 60; GLUCOSE 153 MG/DL (70-105); MAGNESIUM 1.9 MG/DL (1.8-2.4); POTASSIUM 3.9 MMOL/L (3.6-5.0); SODIUM 136 MMOL/L (135-145); TOTAL PROTEIN 7.5 GM/DL (6.4-8.2)
[2018-07-04] MEDS: inSUlin ASPART (NovoLOG) 1 UNIT/0.01 ML (CHARGE PER UNIT) SC SCH ×3 (06:27→18:11)
[2018-07-04] MEDS: ENOXAPARIN 40 MG/0.4 ML (LOVENOX) SYR SC SCH ×2 (06:28→18:16)
[2018-07-04 08:00] VITALS: BP 130/74
--- NOTE | 2018-07-04 11:33 | Physical Therapy Daily Note ---
PT Daily Note-Current Subjective Patient reports she is feeling much better today. Agrees to PT. Mental Status Patient Orientation: Normal For Age Attachments: IV Transfers Therapy Code Descriptions/Definitions Functional [place] Measure: 0=Not Assessed/NA 4=Minimal Assistance 1=Total Assistance 5=Supervision or Setup 2=Maximal Assistance 6=Modified [place] 3=Moderate Assistance 7=Complete [place] Therapy Quality Codes: 6 Independent with activity with or without an assistive device 5 Patient requires set up or clean up by helper. Patient completes activity by themselves 4 Supervision or touching assist (CGA). [place] provide cues , steadying assist 3 The helper provides less than half the effort to complete the activity 2 The helper provides more than half the effort to complete the activity 1 Dependent. The helper does all the effort to complete an activity 7 Patient refused to complete or attempt activity 9 The patient did not perform the activity before the current illness or injury 88 Not attempted due to Medical conditions or safety concerns Transfers (B, C, W/C) (FIM): 6 Scootin Supine to/from Sit: 6 Sit to/from Stand: 6 Weight Bearing Right Lower Extremity: Right Weight Bearing/Tolerated Left Lower Extremity: Left Weight Bearing/Tolerated Gait Training Gait (FIM): 6 Distance (FIM): 3=150 ft Distance: 300' Gait Level of Assist: 6 Gait Assistive Device: FWW steady, safe and functional Exercises Seated Therapy Exercises: Long arc quads Seated Reps: 30 Assessment Patient much improved on this date. Patient plans dismissal soon. PT Short Term Goals Short Term Goals Time Frame: Jul 10, 2018 Transfers (B,C,W/C) (FIM): 6 Gait (FIM): 6 Gait Distance Comment: 150' Gait Level of Assist: 6 Gait Assistive Device: FWW PT Plan Treatment/Plan Treatment Plan: Continue Plan of Care Treatment Plan: Bed Mobility, Education, Functional Activity Marcelina, Functional Strength, Gait, Safety, Therapeutic Exercise, Transfers Treatment Duration: Jul 10, 2018 Frequency: 6 times per week Estimated Hrs Per Day: .25 hour per day (15-30') Patient and/or Family Agrees t: Yes Time/GCodes Time In: 1113 Time Out: 1125 Total Billed Treatment Time: 12 Total Billed Treatment 1 visit GT 12 min PRIMO JOSE PT Jul 04, 2018 11:33
[2018-07-04] MEDS: POTASSIUM CL 10 MEQ/50 ML IVPB (PRE-MIX) IV SCH ×4 (11:48→16:57)
[2018-07-04 12:00] VITALS: BP 99/66
--- NOTE | 2018-07-04 13:35 | NUR ---
Pt skin broke down around and inferior to abd fistula and wound. removed dressing from pt wound and washed skin with warm soapy water. Applied hydrocolloid dressing over irritated skin and attached a ostomy device to catch drainage that is hooked up to a catheter bag. Addendum: 07/04/18 at 1549 by BALTAZAR BERNAL RN Amended: Links added.
--- NOTE | 2018-07-04 14:29 | Occupational Ther Daily Note ---
OT Current Status-Daily Note Subjective Nrsg and wound care stated that pt was not to get up due to colostomy bag just applied, but was able to work with pt in supine. Pt alert, and agreeable to therapy. No c/o pain at this time. Mental Status/Objective Patient Orientation: Person, Place, Time, Situation Therapy Code Descriptions/Definitions Functional [place] Measure: 0=Not Assessed/NA 4=Minimal Assistance 1=Total Assistance 5=Supervision or Setup 2=Maximal Assistance 6=Modified [place] 3=Moderate Assistance 7=Complete [place] Attachments: Central Line, Colostomy/Ileostomy Other Treatment Pt educated on OT, verbalized understanding and stated that she had had OT prior to this hospital stay. skilled therapy completed for light resistance theraband UE exercises given to pt with HEP for room use. Pt was able to complete 10 reps of each exercise and demonstrate understanding of each. Pt then discussed home environment, that her children were getting a shower chair for walk-in shower. Pt stated that she had sock aid and reach, was able to verbalize how to use each for lower body dressing. Discussed long handle sponge to bath lower body. After therapy, pt lying flat in recliner with call light/phone in reach. All needs met in room. Education OT Patient Education: Exercise program Teaching Recipient: Patient Teaching Methods: Demonstration, Handout, Discussion Response to Teaching: Verbalize Understanding, Return Demonstration, Reinforcement Needed OT Short Term Goals Short Term Goals Transfers (B,C,W/C) (FIM): 6 1=Demonstrate adherence to instructed precautions during ADL tasks. 2=Patient will verbalize/demonstrate understanding of assistive devices/ modifications for ADL. 3=Patient will improve strength/tolerance for activity to enable patient to perform ADL's. OT [facility] Goals Principle Industrial Hygienist Goals Time Frame: Jul 17, 2018 Grooming(FIM): 6 Bathing(FIM): 6 Upper Body Dressing(FIM): 6 Lower Body Dressing(FIM): 6 Toileting(FIM): 6 Toilet/Commode Transfer(FIM): 6 Additional Goals: 1-Demonstrate ADL Tasks, 2-Verbalize Understanding, 3- ImproveStrength/Marcelina 1=Demonstrate adherence to instructed precautions during ADL tasks. 2=Patient will verbalize/demonstrate understanding of assistive devices/ modifications for ADL. 3=Patient will improve strength/tolerance for activity to enable patient to perform ADL's. OT Education/Plan Problem List/Assessment Assessment: Decreased Activ Tolerance, Decreased UE Strength Pt to benefit from skilled OT intervention for ADL training, transfers, and strengthening to increase level of function and allow safe return home. Discharge Recommendations Plan/Recommendations: Continue POC Treatment Plan/Plan of Care Patient would benefit from OT for education, treatment and training to promote independence in ADL's, mobility, safety and/or upper extremity function for ADL' s. Plan of Care: ADL Retraining, Functional Mobility, UE Funct Exercise/Act Treatment Duration: Jul 17, 2018 Frequency: 5 times per week Estimated Hrs Per Day: .25 hour per day Agreement: Yes Rehab Potential: Good Time/GCodes Start Time: 14:05 Stop Time: 14:20 Total Time Billed (hr/min): 20 Billed Treatment Time 1 visit-EX 1 (20 min) MAVERICK BRANDON Jul 04, 2018 14:29
--- NOTE | 2018-07-04 16:09 | NUR ---
CM/SS, resume discharge planning process on patient's behalf. HOME INFUSION, TPN: Referral already initiated with [facility], [place]. Providing updated information for formal intake with rep Valencia. HHC: Current with [facility], updated them today to find they have never done TPN before. Garcia decision maker out until tomorrow, will find out then if they can accept. Inquired with [facility] about schedule and ability to accept. If neither agency can provide, will continue to search for qualified agency that accepts patient's [employer] Gold Choice. WOUNDCARE: Patient educator exploring wound dressing to protect patient's skin from fistula drainage. This may require an order for supplies, to be determined. Infusion pharmacy needs physician documentation regarding Medicare requirements about TPN: 1. <90 day need 2. Failed enteral or parenteral feedings or that this method is not recommended and why Continue to work on this discharge plan, complex because of number of agencies/professions involved, care needed and long range duration, wound care complexity. Addendum: 07/04/18 at 1637 by GAIL PEARSON CORRECTION: 1. GREATER than (>) 90 days
[2018-07-04 16:33] VITALS: BP 105/62
--- NOTE | 2018-07-04 16:53 | Progress Note ---
Subjective Time Seen by a Provider: 16:09 Subjective/Events-last exam Pt seen and examined, she is in good spirits today. States she feels good and wound care was able to get device around wound; that so far is catching all of fistula output. Again worked with PT today Review of Systems General: No Chills, No Night Sweats; Fatigue, Malaise Pulmonary: No Dyspnea, No Cough Cardiovascular: No: Chest Pain, Palpitations Gastrointestinal: No: Nausea, Vomiting Objective Exam Vital Signs Date Time Temp Pulse Resp B/P (MAP) Pulse Ox O2 Delivery O2 Flow Rate FiO2 07/04/18 16:33 97.4 92 18 105/62 (76) 94 Room Air 07/04/18 12:00 97.6 102 20 99/66 (77) 97 Room Air 07/04/18 08:00 99.4 91 2 130/74 (92) 97 Room Air 07/04/18 08:00 Room Air 07/04/18 04:00 98.8 95 18 108/55 (72) 96 Room Air 07/04/18 00:00 98.6 86 18 130/77 (94) 95 Room Air 07/03/18 20:00 Room Air 07/03/18 20:00 98.8 91 18 105/60 (75) 94 Room Air I & O 07/04/18 07:00 Intake Total 0 ml Output Total 1650 ml Balance -1650 ml Capillary Refill : Less Than 3 Seconds General Appearance: No Apparent Distress, Obese HEENT: Pharynx Normal, Moist Mucous Membranes; No Scleral Icterus (L), No Scleral Icterus (R) Neck: Supple Respiratory: Chest Non Tender, Lungs Clear, Normal Breath Sounds, No Accessory Muscle Use, No Respiratory Distress Cardiovascular: Regular Rate, Rhythm, No Edema, No Murmur Gastrointestinal: soft, other (open wound, with mesh visible and large fistula - appears to be draining less today) Extremity: Normal Capillary Refill, Non Tender, No Calf Tenderness, No Pedal Edema Neurologic/Psychiatric: Alert, Oriented x3, 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 Norm as Tested Skin: Other (large superficial erosion of skin below open fistula) Results Lab Laboratory Tests 07/03/18 17:19: Glucometer 132H 07/04/18 05:45: Sodium Level 136, Potassium Level 3.9, Chloride Level 107, Carbon Dioxide Level 19L, Anion Gap 10, Blood Urea Nitrogen 23H, Creatinine 0.74, Estimat Glomerular Filtration Rate > 60, BUN/Creatinine Ratio 31, Glucose Level 153H, Calcium Level 9.7, Corrected Calcium 10.3H, Phosphorus Level 4.0, Magnesium Level 1.9, Total Bilirubin 0.5, Aspartate Amino Transf (AST/SGOT) 32, Alanine Aminotransferase (ALT/SGPT) 23, Alkaline Phosphatase 57, Total Protein 7.5, Albumin 3.3 07/04/18 06:08: Glucometer 142H 07/04/18 14:39: Glucometer 136H Assessment/Plan Assessment/Plan Assessment/Plan Enterocutaneous Fistula Malnutrition Weakness TPN started yesterday; bag still not finished. As of now there is a wound device on abdomen that is catching drainage, but I fear this is temporary because the drainage can get under the device. Unfortunately her insurance will not allow an ARU stay; therefore, SW working on getting her home and home health set up with TPN, etc. Pt will have a greater than 90 day need for TPN; because she must not take anything oral in order to decrease fistula output. Once the fistula is more mature and output decreased to help heal abdominal erosion, then she can get closure of abdominal wound and fistula. Clinical Quality Measures DVT/VTE Risk/Contraindication: Risk Factor Score Per Nursin RFS Level Per Nursing on Admit: 4+=Very High MANDA STEWART DO Jul 04, 2018 16:52
[2018-07-04] MEDS: POTASSIUM CHLORIDE IV SCH ×9 (16:58)
[2018-07-04] MEDS: [UNRECOGNIZED DRUG - OTHER] IV SCH ×9 (16:58)
[2018-07-04] MEDS: SODIUM CHLORIDE IV SCH ×9 (16:58)
[2018-07-04 19:15] VITALS: BP 98/61
[2018-07-05] VITALS (7 sets, daily range): BP systolic 95–119; BP diastolic 61–71
[2018-07-05] MEDS: inSUlin ASPART (NovoLOG) 1 UNIT/0.01 ML (CHARGE PER UNIT) SC SCH ×5 (00:02→23:43)
[2018-07-05] MEDS: ENOXAPARIN 40 MG/0.4 ML (LOVENOX) SYR SC SCH ×2 (06:36→19:02)
[2018-07-05 06:43] LABS: ALANINE AMINOTRANSFERASE 44 U/L (0-55); ALBUMIN 3.2 GM/DL (3.2-4.5); ALKALINE PHOSPHATASE 63 U/L (40-136); BILIRUBIN,TOTAL 0.5 MG/DL (0.1-1.0); BUN/CREATININE RATIO 25; CALCIUM 9.4 MG/DL (8.5-10.1); CARBON DIOXIDE 18 MMOL/L (21-32); CHLORIDE 108 MMOL/L (98-107); CREATININE SERUM 0.72 MG/DL (0.60-1.30); GFR ESTIMATED > 60; GLUCOSE 142 MG/DL (70-105); MAGNESIUM 1.9 MG/DL (1.8-2.4); PHOSPHORUS 3.6 MG/DL (2.3-4.7); POTASSIUM 4.1 MMOL/L (3.6-5.0); SODIUM 137 MMOL/L (135-145); TOTAL PROTEIN 7.1 GM/DL (6.4-8.2)
[2018-07-05] MEDS: 1/2 NS IV SOLUTION 1,000 ML IV SCH (09:31)
--- NOTE | 2018-07-05 09:57 | NUR ---
CM/SS, continuing discharge planning for home with long range TPN and wound care. [facility] can not schedule patient for services. Got back with [facility] and they are still considering resuming patient. Provided updated clinical information and contact for home infusion agency. Await their final decision about acceptance. If [facility] can not accept patient, will need to explore regionally who can schedule patient and provide for anticipated [place] [facility] facility services.
--- NOTE | 2018-07-05 10:08 | Physical Therapy Daily Note ---
PT Daily Note-Current Subjective Patient agrees to PT. Patient states she hopes to go home today. Mental Status Patient Orientation: Normal For Age Attachments: IV Transfers Therapy Code Descriptions/Definitions Functional [place] Measure: 0=Not Assessed/NA 4=Minimal Assistance 1=Total Assistance 5=Supervision or Setup 2=Maximal Assistance 6=Modified [place] 3=Moderate Assistance 7=Complete [place] Therapy Quality Codes: 6 Independent with activity with or without an assistive device 5 Patient requires set up or clean up by helper. Patient completes activity by themselves 4 Supervision or touching assist (CGA). [place] provide cues , steadying assist 3 The helper provides less than half the effort to complete the activity 2 The helper provides more than half the effort to complete the activity 1 Dependent. The helper does all the effort to complete an activity 7 Patient refused to complete or attempt activity 9 The patient did not perform the activity before the current illness or injury 88 Not attempted due to Medical conditions or safety concerns Transfers (B, C, W/C) (FIM): 6 Scootin Supine to/from Sit: 6 Sit to/from Stand: 6 Weight Bearing Right Lower Extremity: Right Weight Bearing/Tolerated Left Lower Extremity: Left Weight Bearing/Tolerated Gait Training Gait (FIM): 6 Distance (FIM): 3=150 ft Distance: 300' Gait Level of Assist: 6 Gait Assistive Device: FWW assist for IV pole only Assessment Patient is currently at [facility] independent OF with all gross motor skills and will continue to ambulate PRN with nursing staff. Patient plans dismissal on this date. PT to dismiss patient from services at this time. PT Short Term Goals Short Term Goals Time Frame: Jul 10, 2018 Transfers (B,C,W/C) (FIM): 6 Gait (FIM): 6 Gait Distance Comment: 150' Gait Level of Assist: 6 Gait Assistive Device: FWW PT Plan Treatment/Plan Treatment Plan: Discontinue PT, goals met Treatment Plan: Bed Mobility, Education, Functional Activity Marcelina, Functional Strength, Gait, Safety, Therapeutic Exercise, Transfers Treatment Duration: Jul 10, 2018 Frequency: 6 times per week Estimated Hrs Per Day: .25 hour per day (15-30') Patient and/or Family Agrees t: Yes Time/GCodes Time In: 920 Time Out: 930 Total Billed Treatment Time: 10 Total Billed Treatment 1 visit FA 10 min PRIMO JOSE PT Jul 05, 2018 10:08
--- NOTE | 2018-07-05 13:11 | Occupational Ther Daily Note ---
OT Current Status-Daily Note Subjective Pt sitting in chair, agrees to therapy. Pt states she is feeling better and will hopefully go home today. Mental Status/Objective Therapy Code Descriptions/Definitions Functional [place] Measure: 0=Not Assessed/NA 4=Minimal Assistance 1=Total Assistance 5=Supervision or Setup 2=Maximal Assistance 6=Modified [place] 3=Moderate Assistance 7=Complete [place] ADL-Treatment Pt demonstrated ability to doff sock using roll weigher and don with modified independence using sock aid. Pt sit to stand and transfer to EOB with modified independence. Pt demonstrated ability to perform sit <-> supine with modified independence and back to chair safely. Pt states she has been getting up to commode without assist. Discussed home safety. Pt has no questions or concerns regarding ADLs or home safety. Pt sitting in chair with needs met after session. Education OT Patient Education: Modified ADL techniques, Safety issues Teaching Recipient: Patient Teaching Methods: Discussion Response to Teaching: Verbalize Understanding OT Short Term Goals Short Term Goals Transfers (B,C,W/C) (FIM): 6 1=Demonstrate adherence to instructed precautions during ADL tasks. 2=Patient will verbalize/demonstrate understanding of assistive devices/ modifications for ADL. 3=Patient will improve strength/tolerance for activity to enable patient to perform ADL's. OT Skilled Nursing Goals Skilled Nursing Goals Time Frame: Jul 17, 2018 Grooming(FIM): 6 Bathing(FIM): 6 Upper Body Dressing(FIM): 6 Lower Body Dressing(FIM): 6 Toileting(FIM): 6 Toilet/Commode Transfer(FIM): 6 Additional Goals: 1-Demonstrate ADL Tasks, 2-Verbalize Understanding, 3- ImproveStrength/Marcelina 1=Demonstrate adherence to instructed precautions during ADL tasks. 2=Patient will verbalize/demonstrate understanding of assistive devices/ modifications for ADL. 3=Patient will improve strength/tolerance for activity to enable patient to perform ADL's. OT Education/Plan Discharge Recommendations Plan/Recommendations: Continue POC Treatment Plan/Plan of Care Patient would benefit from OT for education, treatment and training to promote independence in ADL's, mobility, safety and/or upper extremity function for ADL' s. Plan of Care: ADL Retraining, Functional Mobility, UE Funct Exercise/Act Treatment Duration: Jul 17, 2018 Frequency: 5 times per week Estimated Hrs Per Day: .25 hour per day Agreement: Yes Rehab Potential: Good Time/GCodes Start Time: 12:43 Stop Time: 12:55 Total Time Billed (hr/min): 12 Billed Treatment Time 1 visit, ADL(12minutes) RUBIN BERNAL OT Jul 05, 2018 13:11
--- NOTE | 2018-07-05 13:29 | Progress Note ---
Subjective Time Seen by a Provider: 12:44 Subjective/Events-last exam Pt seen and examined and in very good spirits. Has no complaints. Review of Systems General: No Chills Pulmonary: No Dyspnea, No Cough Cardiovascular: No: Chest Pain, Palpitations Gastrointestinal: Abdominal Pain (mild); No: Nausea, Vomiting Objective Exam Vital Signs Date Time Temp Pulse Resp B/P (MAP) Pulse Ox O2 Delivery O2 Flow Rate FiO2 07/05/18 12:00 98.5 79 18 95/61 (72) 98 Room Air 07/05/18 08:00 97.8 84 18 104/64 (77) 97 Room Air 07/05/18 08:00 Room Air 07/05/18 04:05 97.4 81 18 119/61 (80) 95 Room Air 07/05/18 00:00 98.1 85 18 117/71 (86) 97 Room Air 07/04/18 20:00 Room Air 07/04/18 19:15 98.0 90 18 98/61 (73) 95 Room Air 07/04/18 16:33 97.4 92 18 105/62 (76) 94 Room Air I & O 07/05/18 07:00 Intake Total 650 ml Output Total 2300 ml Balance -1650 ml Capillary Refill : Less Than 3 Seconds General Appearance: No Apparent Distress, Obese HEENT: Pharynx Normal, Moist Mucous Membranes; No Scleral Icterus (L), No Scleral Icterus (R) Neck: Supple Respiratory: Chest Non Tender, Lungs Clear, Normal Breath Sounds, No Accessory Muscle Use, No Respiratory Distress Cardiovascular: Regular Rate, Rhythm, No Edema, No Murmur Gastrointestinal: soft, other (open wound, with mesh visible and large fistula - appears to be draining less today) Extremity: Normal Capillary Refill, Non Tender, No Calf Tenderness, No Pedal Edema Neurologic/Psychiatric: Alert, Oriented x3, 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 Norm as Tested Skin: Other (large superficial erosion of skin below open fistula) Results Lab Laboratory Tests 07/04/18 14:39: Glucometer 136H 07/04/18 17:27: Glucometer 118H 07/05/18 00:00: Glucometer 130H 07/05/18 05:35: Glucometer 132H, Sodium Level 137, Potassium Level 4.1, Chloride Level 108H, Carbon Dioxide Level 18L, Anion Gap 11, Blood Urea Nitrogen 18, Creatinine 0.72 , Estimat Glomerular Filtration Rate > 60, BUN/Creatinine Ratio 25, Glucose Level 142H, Calcium Level 9.4, Corrected Calcium 10.0, Phosphorus Level 3.6, Magnesium Level 1.9, Total Bilirubin 0.5, Aspartate Amino Transf (AST/SGOT) 57H , Alanine Aminotransferase (ALT/SGPT) 44, Alkaline Phosphatase 63, Total Protein 7.1, Albumin 3.2 07/05/18 12:29: Glucometer 142H Assessment/Plan Assessment/Plan Assessment/Plan Enterocutaneous Fistula Malnutrition Weakness TPN continues without difficulty; appears that wound device on abdomen is still catching drainage. Will see how long this will last; because the drainage can get under the device. SW still working on getting her home and home health set up with TPN. Pt will have a greater than 90 day need for TPN; because she must not take anything oral in order to decrease fistula output. Once the fistula is more mature and output decreased to help heal abdominal erosion, then she can get closure of abdominal wound and fistula. Her main problem now is going to be wound care because there is not much she can do except hope the bag works or keep the area full of 4x4 to catch drainage and change as often as it fills. There is no other good option for this type of wound. Clinical Quality Measures DVT/VTE Risk/Contraindication: Risk Factor Score Per Nursin RFS Level Per Nursing on Admit: 4+=Very High MANDA STEWART DO Jul 05, 2018 13:29
--- NOTE | 2018-07-05 14:10 | NUR ---
CM/SS, continued discharge planning, current status: HHC: [facility] has not yet fully confirmed they will be able to provide for this patient. Acceptance anticipated, however, unfavorable for all components to come together today. HOME INFUSION: Spoke with Macario at [facility] [place], they have no homicide squad captain today due to another referral and otherwise short staffing. Possibility to send [employer] Sunday if all other planning parts come together. Discussed with Dr. Hallman, he agreed to continue to follow patient for TPN through duration. He did request that database report writer discuss dosing with Gilson Damian to see if patient will qualify for cycle TPN rather than continuous. Gilson not available, left message for return call and through [facility] staff. WOUND CARE: Dr. Hallman indicates there will be no special wound care instructions for patient, see progress notes for summary. Updated [facility] re same, that wound will need to be kept clean and dry as is possible to lessen skin irritation. No Wound Care Clinic referral anticipated for now and no special [facility] nursing orders re wound. Dr. Costa, [facility], had followed patient prior to presentation and admission. He discussed recommendation with database report writer for WOCN (Wound Ostomy Care Nurse) if available. Will continue to work with all involved agencies to pull together patient's care plan.
--- NOTE | 2018-07-05 15:45 | NUR ---
CM/SS. Update. [facility] will not accept patient for services due to TPN. Contacted [facility] to check for any status change there and they can not staff this referral either. This means a new referral will need initiated for a different [facility] agency and patient has [employer] insurance creating its own limits. Discussed cycle TPN with Gilson Damian, [facility]. He will review patient's needs and currents and seek to attempt a trial cycle for success and adjustment over the weekend. Resume planning Sunday.
[2018-07-05] MEDS: [UNRECOGNIZED DRUG - OTHER] IV SCH ×9 (16:47)
[2018-07-05] MEDS: SODIUM CHLORIDE IV SCH ×9 (16:47)
[2018-07-05] MEDS: POTASSIUM CHLORIDE IV SCH ×9 (16:47)
[2018-07-06] MEDS: 1/2 NS IV SOLUTION 1,000 ML IV SCH (04:01)
[2018-07-06] MEDS: inSUlin ASPART (NovoLOG) 1 UNIT/0.01 ML (CHARGE PER UNIT) SC SCH ×3 (06:13→18:16)
[2018-07-06] MEDS: ENOXAPARIN 40 MG/0.4 ML (LOVENOX) SYR SC SCH ×2 (06:24→18:17)
[2018-07-06 06:57] LABS: ALANINE AMINOTRANSFERASE 54 U/L (0-55); ALBUMIN 3.2 GM/DL (3.2-4.5); ALKALINE PHOSPHATASE 80 U/L (40-136); BILIRUBIN,TOTAL 0.5 MG/DL (0.1-1.0); BUN/CREATININE RATIO 22; CALCIUM 9.4 MG/DL (8.5-10.1); CARBON DIOXIDE 16 MMOL/L (21-32); CHLORIDE 111 MMOL/L (98-107); CREATININE SERUM 0.77 MG/DL (0.60-1.30); GFR ESTIMATED > 60; GLUCOSE 135 MG/DL (70-105); PHOSPHORUS 3.9 MG/DL (2.3-4.7); POTASSIUM 4.2 MMOL/L (3.6-5.0); SODIUM 137 MMOL/L (135-145); TOTAL PROTEIN 7.1 GM/DL (6.4-8.2)
[2018-07-06 08:00] VITALS: BP 110/71
--- NOTE | 2018-07-06 10:21 | NUR ---
TPN: 62 Y/O F, HT 63 INCHES, ABW 106 KG, IBW 52.4 KG, AJDBW 74 KG, BMI 41.6. LABS: CL 111, CO2 16, GLUCOSE 135. CC: ENTEROCUTANEOUS FISTULA, CLASS III OBESITY, CURRENTLY NPO, 3-IN-1 TPN AT 68 ML/HR PROVIDING 1550 KCAL INCLUDING 100 GM PROTEIN, 0.45% NS AT 55 ML/HR. GOAL FOR CLASS III OBESE PATIENT IS 11-14 KCAL/KG ABW (9155-6157 KCAL), WITH 2.5 GM/KG IBW PROTEIN (130 GMS). NEXT TPN WILL PROVIDE 1424 KCL INCLUDING 120 GM PROTEIN. WILL CYCLE TPN OVER 16 HRS ON AND 8 HRS OFF DAILY FOLLOWS; AT 17:00 START TPN AT 50 ML/HR X 1 HR AT 18:00 ADVANCE TPN TO 100 ML/HR X 14 HRS AT 08:00 SLOW TPN TO 50 ML/HR AT 09:00 STOP TPN WILL RUN 0.45% NS OVER 16 HRS WITH TPN AT 63 ML/HR. THIS PLUS TPN WILL PROVIDE 2,500 ML DAILY. UNABLE TO ADD MORE FLUID TO TPN WHICH MIGHT DESTABILIZE TPN (10%/4%/2%, DEXTROSE/PROTEIN/LIPID GUIDELINES). IF ATTENTIONAL FLUID NEEDED WILL NEED TO INCREASE 0.45% NS RATE. LISA DESIR PHARMD,BCNSP,[facility]
[2018-07-06 12:00] VITALS: BP 99/65
[2018-07-06 15:30] VITALS: BP 99/66
--- NOTE | 2018-07-06 20:43 | Progress Note ---
Subjective Date Seen by a Provider: Jul 06, 2018 Time Seen by a Provider: 09:10 Subjective/Events-last exam patient with enterocutaneous fistula. Patient on TPN not having any difficulties with it. Patient nothing by mouth. No new complaints. She denies any nausea vomiting fever sweats chills shortness of breath or chest pain. Objective Exam Vital Signs Date Time Temp Pulse Resp B/P (MAP) Pulse Ox O2 Delivery O2 Flow Rate FiO2 07/06/18 15:30 97.5 83 18 99/66 (77) 98 Room Air 07/06/18 12:00 97.2 81 18 99/65 (76) 99 Room Air 07/06/18 08:00 Room Air 07/06/18 08:00 97.2 79 20 110/71 (84) 98 Room Air 07/05/18 23:51 97.5 72 18 101/65 (77) 96 Room Air I & O 07/06/18 07:00 Intake Total 1000 ml Output Total 1575 ml Balance -575 ml Capillary Refill : Less Than 3 Seconds General Appearance: No Apparent Distress, Obese HEENT: PERRL/EOMI, Pharynx Normal, Moist Mucous Membranes; No Scleral Icterus ( L), No Scleral Icterus (R) Neck: Supple Respiratory: Chest Non Tender, No Accessory Muscle Use, No Respiratory Distress Cardiovascular: Regular Rate, Rhythm, No Edema, No Murmur Gastrointestinal: soft, other (open wound, with mesh visible and large fistula ) Extremity: Normal Capillary Refill, Non Tender, No Calf Tenderness, No Pedal Edema Neurologic/Psychiatric: Alert, Oriented x3, 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 Skin: Other (large superficial erosion of skin below open fistula) Lymphatic: No Adenopathy Results Lab Laboratory Tests 07/05/18 23:20: Glucometer 123H 07/06/18 05:12: Glucometer 146H 07/06/18 06:30: Sodium Level 137, Potassium Level 4.2, Chloride Level 111H, Carbon Dioxide Level 16L, Anion Gap 10, Blood Urea Nitrogen 17, Creatinine 0.77, Estimat Glomerular Filtration Rate > 60, BUN/Creatinine Ratio 22, Glucose Level 135H, Calcium Level 9.4, Corrected Calcium 10.0, Phosphorus Level 3.9, Magnesium Level 2.0, Total Bilirubin 0.5, Aspartate Amino Transf (AST/SGOT) 63H, Alanine Aminotransferase (ALT/SGPT) 54, Alkaline Phosphatase 80, Total Protein 7.1, Albumin 3.2 07/06/18 13:28: Glucometer 116H 07/06/18 18:12: Glucometer 100 Assessment/Plan Assessment/Plan Assessment/Plan Enterocutaneous Fistula Malnutrition Weakness continue TPN Nothing by mouth Continue local control of fistula drainage No changes to current care. Clinical Quality Measures DVT/VTE Risk/Contraindication: Risk Factor Score Per Nursin RFS Level Per Nursing on Admit: 4+=Very High ANGELINA MARQUES DO Jul 06, 2018 20:43
[2018-07-07 00:14] VITALS: BP 101/64
[2018-07-07] MEDS: inSUlin ASPART (NovoLOG) 1 UNIT/0.01 ML (CHARGE PER UNIT) SC SCH (00:14)
== END | disposition home health service (06) ==
LOC: SDC 09:39 → EDSTATUS 09:43 → 4TH 17:40
PROVIDERS: ATTEND Surgery
DX: E46 Unspecified protein-calorie malnutrition (principal); K63.2 Fistula of intestine; I10 Essential (primary) hypertension; E03.9 Hypothyroidism, unspecified; K75.9 Inflammatory liver disease, unspecified; R53.1 Weakness; Z79.899 Other long term (current) drug therapy
CPT/HCPCS: 36415; 36569; 71045; 76937; 80053; 82962; 83735; 84100; 84134; 85025

== ENCOUNTER 2018-07-18 11:18 | Outpatient (RCR) | payer MEDICARE ==
[~2018-07-18 11:18] MED LIST changes: -1/2 NS IV SOLUTION 1,000 ML IV SCH; -CATHETER FLUSH 10 ML SYR IV PRN; -LACTATED RINGERS 1,000 ML IV ONE; -LACTATED RINGERS 1,000 ML IV SCH; +OXC5T PO; -OXYC5CAP18 PO; -PATIENT MAY USE OWN MEDS, ALL PO SCH; -POTASSIUM CHLORIDE IV SCH; -SODIUM ACETATE IV SCH; -SODIUM CHLORIDE IV SCH; -SODIUM PHOSPHATE IV SCH; -[UNRECOGNIZED DRUG - OTHER] IV SCH; -[UNRECOGNIZED DRUG - OTHER] IV SCH; -inSUlin ASPART (NovoLOG) 1 UNIT/0.01 ML (CHARGE PER UNIT) SC SCH
[2018-07-18 11:45] LABS: BASOPHILS # (AUTO) 0.1 10^3/uL (0.0-0.1); BASOPHILS % (AUTO) 1 % (0-10); EOSINOPHILS # (AUTO) 0.4 10^3/uL (0.0-0.3); EOSINOPHILS % (AUTO) 6 % (0-10); HEMATOCRIT 42 % (35-52); HEMOGLOBIN 13.3 G/DL (11.5-16.0); LYMPHOCYTES # (AUTO) 2.5 X 10^3 (1.0-4.0); LYMPHOCYTES % (AUTO) 36 % (12-44); MEAN CORPUSCULAR HEMOGLOBIN 30 PG (25-34); MEAN CORPUSCULAR HGB CONC 32 G/DL (32-36); MEAN CORPUSCULAR VOLUME 92 FL (80-99); MEAN PLATELET VOLUME 9.8 FL (7.4-10.4); MONOCYTES # (AUTO) 0.8 X 10^3 (0.0-1.0); MONOCYTES % (AUTO) 12 % (0-12); NEUTROPHILS # (AUTO) 3.2 X 10^3 (1.8-7.8); NEUTROPHILS % (AUTO) 46 % (42-75); PLATELET COUNT 556 10^3/uL (130-400)
[2018-07-18 12:02] LABS: ALANINE AMINOTRANSFERASE 92 U/L (0-55); ALBUMIN 3.6 GM/DL (3.2-4.5); ALKALINE PHOSPHATASE 169 U/L (40-136); BILIRUBIN,TOTAL 0.8 MG/DL (0.1-1.0); BUN/CREATININE RATIO 35; CALCIUM 9.9 MG/DL (8.5-10.1); CARBON DIOXIDE 22 MMOL/L (21-32); CHLORIDE 102 MMOL/L (98-107); CREATININE SERUM 0.84 MG/DL (0.60-1.30); GFR ESTIMATED > 60; GLUCOSE 123 MG/DL (70-105); MAGNESIUM 1.9 MG/DL (1.8-2.4); PHOSPHORUS 3.9 MG/DL (2.3-4.7); POTASSIUM 4.2 MMOL/L (3.6-5.0); SODIUM 135 MMOL/L (135-145); TOTAL PROTEIN 8.5 GM/DL (6.4-8.2)
[2018-09-16] MEDS ORDERED: FLUT9.9S NS (09:34)
[2018-09-16] MEDS ORDERED: LISI40TA PO (09:40)
[2018-09-16] MEDS ORDERED: LEVO25TA5 PO (09:40)
[2018-09-16] MEDS ORDERED: PRAV40TA2 PO (09:40)
[2018-09-16] MEDS ORDERED: METF-399 PO (09:40)
[2018-09-16] MEDS ORDERED: LEVO200T6 PO (09:40)
[2018-09-16] MEDS ORDERED: CFTR1V IJ (11:48)
[2018-09-17] MEDS ORDERED: CFTR1V IJ (10:57)
[2018-10-09] MEDS ORDERED: ACET-93 PO (09:34)
== END 2018-10-16 | disposition home or self-care (01) ==
LOC: LAB 11:18 → EDSTATUS 07-19 15:00
PROVIDERS: ATTEND Surgery
DX: Z51.81 Encounter for therapeutic drug level monitoring (principal); Z79.899 Other long term (current) drug therapy
CPT/HCPCS: 36415; 80053; 83735; 84100; 85025

== ENCOUNTER 2018-07-25 11:44 | Outpatient (RCR) | payer MEDICARE ==
[2018-07-25 12:06] LABS: BASOPHILS % (AUTO) 1 % (0-10); EOSINOPHILS # (AUTO) 0.4 10^3/uL (0.0-0.3); EOSINOPHILS % (AUTO) 5 % (0-10); HEMATOCRIT 42 % (35-52); HEMOGLOBIN 13.8 G/DL (11.5-16.0); LYMPHOCYTES # (AUTO) 2.7 X 10^3 (1.0-4.0); LYMPHOCYTES % (AUTO) 34 % (12-44); MEAN CORPUSCULAR HEMOGLOBIN 30 PG (25-34); MEAN CORPUSCULAR HGB CONC 33 G/DL (32-36); MEAN CORPUSCULAR VOLUME 91 FL (80-99); MEAN PLATELET VOLUME 10.1 FL (7.4-10.4); MONOCYTES # (AUTO) 1.1 X 10^3 (0.0-1.0); MONOCYTES % (AUTO) 14 % (0-12); NEUTROPHILS # (AUTO) 3.7 X 10^3 (1.8-7.8); NEUTROPHILS % (AUTO) 46 % (42-75); PLATELET COUNT 583 10^3/uL (130-400); RED CELL DISTRIBUTION WIDTH 14.2 % (10.0-14.5)
[2018-07-25 12:31] LABS: ALANINE AMINOTRANSFERASE 83 U/L (0-55); ALBUMIN 3.6 GM/DL (3.2-4.5); ALKALINE PHOSPHATASE 165 U/L (40-136); BUN/CREATININE RATIO 34; CALCIUM 9.8 MG/DL (8.5-10.1); CARBON DIOXIDE 23 MMOL/L (21-32); CHLORIDE 98 MMOL/L (98-107); GFR ESTIMATED > 60; GLUCOSE 130 MG/DL (70-105); PHOSPHORUS 3.8 MG/DL (2.3-4.7); POTASSIUM 3.9 MMOL/L (3.6-5.0); SODIUM 136 MMOL/L (135-145); TOTAL PROTEIN 8.6 GM/DL (6.4-8.2)
--- NOTE | 2018-07-29 19:19 | Physician Query-Final Dx ---
MARY TELLES 07/29/18 1919: Clinic Account Progress/Dx Physician Query: Please give diagnosis Please document dx for the TPN therapy. Date of Service Jul 25, 2018 at 11:44 MANDA STEWART DO 08/02/18 1121: Clinic Account Progress/Dx Physician Query: Please give diagnosis DIAGNOSIS: Diagnosis Malnutrition and pt must be NPO to try and limit food/liquid in small bowel in attempt to decrease enterocutaneous fistula (basically an ileostomy - just not surgically created) output. MARY TELLES Jul 29, 2018 19:19 MANDA STEWART DO Aug 02, 2018 11:21
[2018-09-16] MEDS ORDERED: FLUT9.9S NS (09:34)
[2018-09-16] MEDS ORDERED: LEVO25TA5 PO (09:40)
[2018-09-16] MEDS ORDERED: METF-399 PO (09:40)
[2018-09-16] MEDS ORDERED: LEVO200T6 PO (09:40)
[2018-09-16] MEDS ORDERED: LISI40TA PO (09:40)
[2018-09-16] MEDS ORDERED: PRAV40TA2 PO (09:40)
[2018-09-16] MEDS ORDERED: CFTR1V IJ (11:48)
[2018-09-17] MEDS ORDERED: CFTR1V IJ (10:57)
[2018-10-09] MEDS ORDERED: ACET-93 PO (09:34)
== END 2018-10-23 | disposition home or self-care (01) ==
LOC: LAB 11:44
PROVIDERS: ATTEND Surgery
DX: E46 Unspecified protein-calorie malnutrition (principal)
CPT/HCPCS: 36415; 80053; 83735; 84100; 85025

== ENCOUNTER 2018-09-13 16:13 | Inpatient (IN) | payer MEDICARE ==
[~2018-09-13] VITALS: Ht 160 cm; Wt 109.9 kg
[2018-09-13] VITALS (8 sets, daily range): BP systolic 84–116; BP diastolic 57–84
[~2018-09-13 16:13] MED LIST changes: +[UNRECOGNIZED DRUG - NUTRITION] PO SCH
[2018-09-13 16:45] LABS: BASOPHILS # (AUTO) 0.1 10^3/uL (0.0-0.1); BASOPHILS % (AUTO) 1 % (0-10); EOSINOPHILS # (AUTO) 0.4 10^3/uL (0.0-0.3); EOSINOPHILS % (AUTO) 4 % (0-10); HEMATOCRIT 38 % (35-52); HEMOGLOBIN 12.5 G/DL (11.5-16.0); LYMPHOCYTES # (AUTO) 4.1 X 10^3 (1.0-4.0); LYMPHOCYTES % (AUTO) 41 % (12-44); MEAN CORPUSCULAR HEMOGLOBIN 30 PG (25-34); MEAN CORPUSCULAR HGB CONC 33 G/DL (32-36); MEAN CORPUSCULAR VOLUME 93 FL (80-99); MEAN PLATELET VOLUME 10.1 FL (7.4-10.4); MONOCYTES # (AUTO) 1.1 X 10^3 (0.0-1.0); MONOCYTES % (AUTO) 11 % (0-12); NEUTROPHILS # (AUTO) 4.5 X 10^3 (1.8-7.8); NEUTROPHILS % (AUTO) 45 % (42-75); PLATELET COUNT 516 10^3/uL (130-400); RED CELL DISTRIBUTION WIDTH 19.6 % (10.0-14.5); WHITE BLOOD COUNT 10.2 10^3/uL (4.3-11.0)
[2018-09-13] MEDS ORDERED: NS IV 1000 ML 1,000 ML IV SCH ×2 (16:45→18:45)
[2018-09-13 16:54] LABS: INR 1.1 (0.8-1.4); PROTHROMBIN TIME PATIENT 14.1 SEC (12.2-14.7)
--- NOTE | 2018-09-13 16:54 | NUR ---
restorative care technician in room drawing 2nd Blood cultures.
[2018-09-13] MEDS ORDERED: AMPICILLIN FOR IV USE 1,000 MG in WATER (STERILE) FOR INJECTION 7.4 ML IV STA (16:58)
[2018-09-13 17:00] LABS: ALBUMIN 3.1 GM/DL (3.2-4.5); BILIRUBIN,TOTAL 1.8 MG/DL (0.1-1.0); CALCIUM 9.2 MG/DL (8.5-10.1); CREATININE SERUM 1.09 MG/DL (0.60-1.30); POTASSIUM 3.8 MMOL/L (3.6-5.0); TOTAL PROTEIN 8.9 GM/DL (6.4-8.2)
[2018-09-13 17:06] LABS: BILIRUBIN,URINE NEGATIVE (NEGATIVE); CLARITY,URINE VERY CLOUDY; COLOR,URINE AMBER; GLUCOSE, URINE (UA) NEGATIVE (NEGATIVE); KETONES,URINE NEGATIVE (NEGATIVE); LEUKOCYTE ESTERASE ,URINE 3+ (NEGATIVE); NITRITE,URINE NEGATIVE (NEGATIVE); PH,URINE 7 (5-9); PROTEIN,URINE 2+ (NEGATIVE); UROBILINOGEN,URINE NORMAL (NORMAL)
[2018-09-13 17:14] LABS: BACTERIA,URINE LARGE /HPF; WBC,URINE >100 /HPF
[2018-09-13] MEDS ORDERED: PIPERACILLIN/TAZOBACTAM (BULK) 4.5 GM in NS (IVPB) 100 ML IV ONE (17:15)
--- NOTE | 2018-09-13 17:16 | ED GU-Female ---
General Chief Complaint: - Urinary Stated Complaint: UTI Nursing Triage Note: PATIENT AMBULATORY TO ER WITH WALKER WITH COMPLAINT OF LOW BACK PAIN, URGENCY AND BURNING WITH URINATION. PATIENT IS MOSS X4 AND STATES SYMPTOMS BEGAN SUNDAY A WEEK AGO. PATIENT STATES DR. SCOTT IS AWARE OF THE SYMPTOMS BUT SHE HAS TO HAVE IV ANTIBIOTICS DUE TO NOT BEING ABLE TO EAT OR DRINK SHE HAS A LARGE OPEN ABDOMINAL WOUND AND IS RECIEVING IV TPN. PATIENT HAS A PICC LINE PRESENT TO LEFT UPPER ARM AND STATES SHE SELF ADMINISTERS THE TPN AT HOME THROUGH THE IV. PATIENT STATES SHE ALSO DOES HER OWN WOUND CARE AT HOME. Nursing Sepsis Screen: No Definite Risk Source: patient Exam Limitations: no limitations History of Present Illness Date Seen by Provider: Sep 13, 2018 Time Seen by Provider: 16:30 Initial Comments 63-year-old female who presents to the emergency room with complaints of low back pain, urgency and burning with urination for the past 5 days. She was seen and evaluated at [facility] and was told that she had a urinary tract infection that required IV antibiotics. She has been awaiting insurance approval for something bed for IV antibiotics. She is alert and oriented on arrival to the emergency room. She was found to have hypotension on arrival to the emergency room. Septic workup was ordered. 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 She is seeing TRACY and Dr. Hallman for surgical consult. She denies fevers, nausea, vomiting, diarrhea. Allergies and Home Medications Allergies Coded Allergies: linezolid (Verified Allergy, Severe, swelling to tongue, skin rash, 09/13/18) Home Medications Acyclovir 800 Mg Tablet, 800 MG PO QID Prescribed by: GILL CESPEDES on 12/12/14 190 Amoxicillin/Clavulanate K 875 Mg Tab, 1 TAB PO BID Prescribed by: GILL CESPEDES on 08/07/14 1514 Bisoprol/Hydrochlorothiazide 1 Tab Tablet, 1 TAB PO DAILY, (Reported) Cefdinir 300 Mg Capsule, 1 EACH PO BID Prescribed by: GILL CESPEDES on 04/20/14 1851 Guaifenesin/Codeine Phos 120 Ml Liquid, 5-10 ML PO Q6H Prescribed by: GILL CESPEDES on 04/20/14 1611 Hydrocodone Bit/Acetaminophen 1 Each Tablet, 1 EA PO Q6H PRN for MILD PAIN Prescribed by: GILL CESPEDES on 08/07/14 1514 Hydrocodone/Acetaminophen 1 Each Tablet, 1 EACH PO Q4H PRN for PAIN Prescribed by: GILL CESPEDES on 12/12/14 190 Metformin Hcl 1,000 Mg Tablet, 1 EACH PO BID WITH MEALS, (Reported) Oxycodone Hcl 5 Mg Capsule, 5 MG PO Q6H PRN for PAIN Prescribed by: GILL CESPEDES on 12/12/14 190 Oxymetazoline Hcl 15 Ml [place], 2-3 SPRAY NS PER PACKAGE INSTR Prescribed by: GILL CESPEDES on 04/20/14 1611 Paroxetine Hcl 20 Mg Tablet, 20 MG PO DAILY, (Reported) Patient Home Medication List Home Medication List Reviewed: Yes Review of Systems Review of Systems Constitutional: see HPI; No chills, No fever Genitourinary: see HPI, burning, frequency Skin: see HPI, other (abdominal fistula) All Other Systemes Reviewed Negative Unless Noted: Yes Past Nkjhimz-Ivofox-Zeoryp Hx Past Med/Social Hx: Reviewed Nursing Past Med/Soc Hx Patient Social History Alcohol Use: Denies Use Recreational Drug Use: No Smoking Status: Never a Smoker 2nd Hand Smoke Exposure: No Recent Foreign Travel: No Contact w/Someone Who Travel: No Recent Infectious Disease Expo: No Recent Hopitalizations: Yes Immunizations Up To Date Tetanus Booster (TDap): Unknown Date of Pneumonia Vaccine: Jan 07, 2018 Date of Influenza Vaccine: Jan 07, 2018 Seasonal Allergies Seasonal Allergies: No Past Medical History Surgeries: Yes (TUBAL, 1 OPEN EXPLORATORY, 6 HERNIA REPAIRS , I &D OF ABD WOUND, CARPAL POLINA) Abdominal Respiratory: No Cardiac: No Hypertension Neurological: No Reproductive Disorders: No Genitourinary: No Gastrointestinal: Yes (FISTULA, HERNIA WITH MESH, OPEN ABD WOUND TO CENTER OF ABD) Hepatitis Musculoskeletal: Yes Arthritis Endocrine: Yes Hypothyroidsim HEENT: No Cancer: No Psychosocial: No Integumentary: No Blood Disorders: No Family Medical History Reviewed Nursing Family Hx Heart Disease, Renal Disease Physical Exam Vital Signs Vital Signs - First Documented 09/13/18 16:15 Temp 98.3 Pulse 85 Resp 16 B/P (MAP) 116/75 (89) Pulse Ox 85 O2 Delivery Room Air Capillary Refill : Less Than 3 Seconds Height, Weight, BMI Height: 5'3.00" Weight: 231lbs. 0.0oz. [id number]; 40.6 BMI Method:Actual General Appearance: WD/WN, no apparent distress Cardiovascular: normal peripheral pulses, regular rate, rhythm, no edema, no gallop, no JVD, no murmur Respiratory: chest non-tender, lungs clear, normal breath sounds, no respiratory distress, no accessory muscle use, respiratory distress Gastrointestinal: normal bowel sounds, non tender, soft, no organomegaly, no pulsatile mass, other (chronic abdominal wound/fistula.) Extremities: normal capillary refill Neurologic/Psychiatric: alert, normal mood/affect, oriented x 3 Skin: normal color, warm/dry Focused Exam Lactate Level 09/13/18 16:22: Lactic Acid Level 2.18*H Lactic Acid Level Laboratory Tests Test 09/13/18 16:22 Lactic Acid Level 2.18 MMOL/L (0.50-2.00) *H Progress/Results/Core Measures Suspected Sepsis Recent Fever Within 48 Hours: No Infection Criteria Present: None New/Unexplained Altered Menta: No Sepsis Screen: No Definite Risk SIRS Temperature:98.3 Pulse: 85 Respiratory Rate: 16 Laboratory Tests 09/13/18 16:22: White Blood Count 10.2 Blood Pressure 116 /75 Mean: 89 09/13/18 16:22: Lactic Acid Level 2.18*H Laboratory Tests 09/13/18 16:22: Creatinine 1.09, INR Comment 1.1, Platelet Count 516H, Total Bilirubin 1.8H Results/Orders Lab Results Laboratory Tests Test 09/13/18 16:22 09/13/18 16:57 Range/Units White Blood Count 10.2 4.3-11.0 10^3/uL Red Blood Count 4.12 L 4.35-5.85 10^6/uL Hemoglobin 12.5 11.5-16.0 G/DL Hematocrit 38 35-52 % Mean Corpuscular Volume 93 80-99 FL Mean Corpuscular Hemoglobin 30 25-34 PG Mean Corpuscular Hemoglobin Concent 33 32-36 G/DL Red Cell Distribution Width 19.6 H 10.0-14.5 % Platelet Count 516 H 130-400 10^3/uL Mean Platelet Volume 10.1 7.4-10.4 FL Neutrophils (%) (Auto) 45 42-75 % Lymphocytes (%) (Auto) 41 12-44 % Monocytes (%) (Auto) 11 0-12 % Eosinophils (%) (Auto) 4 0-10 % Basophils (%) (Auto) 1 0-10 % Neutrophils # (Auto) 4.5 1.8-7.8 X 10^3 Lymphocytes # (Auto) 4.1 H 1.0-4.0 X 10^3 Monocytes # (Auto) 1.1 H 0.0-1.0 X 10^3 Eosinophils # (Auto) 0.4 H 0.0-0.3 10^3/uL Basophils # (Auto) 0.1 0.0-0.1 10^3/uL Prothrombin Time 14.1 12.2-14.7 SEC INR Comment 1.1 0.8-1.4 Activated Partial Thromboplast Time 31 24-35 SEC Sodium Level 135 135-145 MMOL/L Potassium Level 3.8 3.6-5.0 MMOL/L Chloride Level 97 L 98-107 MMOL/L Carbon Dioxide Level 26 21-32 MMOL/L Anion Gap 12 5-14 MMOL/L Blood Urea Nitrogen 30 H 7-18 MG/DL Creatinine 1.09 0.60-1.30 MG/DL Estimat Glomerular Filtration Rate 51 BUN/Creatinine Ratio 28 Glucose Level 97 70-105 MG/DL Lactic Acid Level 2.18 *H 0.50-2.00 MMOL/L Calcium Level 9.2 8.5-10.1 MG/DL Corrected Calcium 9.9 8.5-10.1 MG/DL Total Bilirubin 1.8 H 0.1-1.0 MG/DL Aspartate Amino Transf (AST/SGOT) 63 H 5-34 U/L Alanine Aminotransferase (ALT/SGPT) 44 0-55 U/L Alkaline Phosphatase 127 40-136 U/L Total Protein 8.9 H 6.4-8.2 GM/DL Albumin 3.1 L 3.2-4.5 GM/DL Urine Color KATJA H Urine Clarity VERY CLOUDY H Urine pH 7 5-9 Urine Specific [place] 1.010 L 1.016-1.022 Urine Protein 2+ H NEGATIVE Urine Glucose (UA) NEGATIVE NEGATIVE Urine Ketones NEGATIVE NEGATIVE Urine Nitrite NEGATIVE NEGATIVE Urine Bilirubin NEGATIVE NEGATIVE Urine Urobilinogen NORMAL NORMAL MG/DL Urine Leukocyte Esterase 3+ H NEGATIVE Urine RBC (Auto) 1+ H NEGATIVE Urine RBC NONE /HPF Urine WBC >100 H /HPF Urine Squamous Epithelial Cells 5-10 /HPF Urine Crystals NONE /LPF Urine Bacteria LARGE H /HPF Urine Casts NONE /LPF Urine Mucus NEGATIVE /LPF Urine Culture Indicated CULTURE PENDING My Orders Orders - BALTAZAR CASTRO Cbc With Automated Diff (09/13/18 16:37) Comprehensive Metabolic Panel (09/13/18 16:37) Blood Culture (09/13/18 16:37) Urine Culture (09/13/18 16:37) Protime With Inr (09/13/18 16:37) Partial Thromboplastin Time (09/13/18 16:37) Ed Iv/Invasive Line Start (09/13/18 16:37) Vital Signs Adult Sepsis Patie Q15M (09/13/18 16:37) O2 (09/13/18 16:37) Remove Rings In Anticipation O (09/13/18 16:37) Lactic Acid Analyzer (09/13/18 16:37) Ns Iv 1000 Ml (Sodium Chloride 0.9%) (09/13/18 16:45) Piperacillin/Tazobactam (Bulk) (Zosyn In (09/13/18 17:15) Vital Signs/I&O 09/13/18 16:15 Temp 98.3 Pulse 85 Resp 16 B/P (MAP) 116/75 (89) Pulse Ox 85 O2 Delivery Room Air Capillary Refill : Less Than 3 Seconds Blood Pressure Mean: 89 Progress Note : Time: 16:[address] Solares on-call surgeon was consulted and evaluated the patient in the emergency room. He agrees that the fistula is being appropriately managed at this time. He will be available. 1650: Dr. Craft called to discuss the p cm's plan of care. She reports she's been working with [employer] to get approval for admission to [facility] for swing bed. We will plan to transfer the patient to [facility] for swing bed stay if laboratory findings are normal. 1700: Lab reports critical lactic acid of 2.18. Dr. Craft was notified of laboratory findings and hypotension. She agrees with plans for admission, sepsis protocol, stepdown status. The patient agrees with plan of care/admission. Departure Communication (Admissions) Time/Spoke to Admitting Phy: 17:00 Dr. Craft recommends admission to stepdown with vancomycin and Zosyn for broad- spectrum coverage. Time/Spoke to Consulting Phy: 16:45 Dr. Solares Impression Primary Impression: Urinary tract infection Additional Impressions: Sepsis chronic abdominal fistula Disposition: 01 HOME, SELF-CARE Condition: Stable/Unchanged Admissions Decision to Admit Reason: Admit from ER (General) Decision to Admit/Date: Sep 13, 2018 Time/Decision to Admit Time: 17:35 Departure-Patient Inst. Referrals: ERIC SCOTT MD (PCP/Family) Primary Care Physician BALTAZAR CASTRO Sep 13, 2018 17:16
[2018-09-13] MEDS ORDERED: NS IV ONE (18:45)
[2018-09-13] MEDS ORDERED: CATHETER FLUSH 10 ML SYR IV PRN (18:45)
[2018-09-13] MEDS ORDERED: ONDANSETRON 4 MG/2 ML (SDV) Z0FRAN IV PRN (18:45)
--- NOTE | 2018-09-13 19:02 | NUR ---
CR 1.09; CR CL ~60; WT 104.9 KG; VANCO 1500 MG IV BOLUS THEN 1250 MG IV Q12H X 3 DAYS
--- NOTE | 2018-09-13 19:20 | Consultation (Surgery) ---
History of Present Illness History of Present Illness Patient Consulted On(chip/time) 09/13/18 19:15 Date Seen by Provider: Sep 13, 2018 Time Seen by Provider: 17:41 History of Present Illness Consult requested by Dr. Craft for abdominal fistula. Seen and evaluated in the emergency department. Patient is a 63-year-old female who developed abdominal fistula after hernia repair in June 2018. Patient has been nothing by mouth and on TPN in preparation for repair of abdominal fistula. Patient states that she does take some ice chips but has been compliant with being nothing by mouth and she is comfortable with doing her own wound care that she does at home. Patient states that she has been having pain and urgency with urination for about 1 week. Nothing was seems to make it better. Patient states that nothing was seems to make it worse. Moderate discomfort. Patient states she has a urinary tract inf ection but had to come in for IV antibiotics. Patient otherwise is having any other complaints. She states that she's been seeing Dr. Lan at for her fistula but has not had it repaired yet due to not being at goal weight. Patient was some slight hypotension in the emergency department. She has no other complaints at this time. She denies any nausea vomiting fever sweats chills shortness of breath or chest pain at this time. Allergies and Home Medications Allergies Coded Allergies: linezolid (Verified Allergy, Severe, swelling to tongue, skin rash, 09/13/18) Home Medications Acyclovir 800 Mg Tablet, 800 MG PO QID Prescribed by: GILL CESPEDES on 12/12/141905 Amoxicillin/Clavulanate K 875 Mg Tab, 1 TAB PO BID Prescribed by: GILL CESPEDES on 08/07/14 1514 Bisoprol/Hydrochlorothiazide 1 Tab Tablet, 1 TAB PO DAILY, (Reported) Cefdinir 300 Mg Capsule, 1 EACH PO BID Prescribed by: GILL CESPEDES on 04/20/14 1851 Guaifenesin/Codeine Phos 120 Ml Liquid, 5-10 ML PO Q6H Prescribed by: GILL CESPEDES on 04/20/14 1611 Hydrocodone Bit/Acetaminophen 1 Each Tablet, 1 EA PO Q6H PRN for MILD PAIN Prescribed by: GILL CESPEDES on 08/07/14 1514 Hydrocodone/Acetaminophen 1 Each Tablet, 1 EACH PO Q4H PRN for PAIN Prescribed by: GILL CESPEDES on 12/12/141905 Metformin Hcl 1,000 Mg Tablet, 1 EACH PO BID WITH MEALS, (Reported) Oxycodone Hcl 5 Mg Capsule, 5 MG PO Q6H PRN for PAIN Prescribed by: GILL CESPEDES on 12/12/141907 Oxymetazoline Hcl 15 Ml [place], 2-3 SPRAY NS PER PACKAGE INSTR Prescribed by: GILL CESPEDES on 04/20/14 1611 Paroxetine Hcl 20 Mg Tablet, 20 MG PO DAILY, (Reported) Patient Home Medication List Home Medication List Reviewed: Yes Past Tnrdljk-Ctqzmy-Ffhyhi Hx Patient Social History Alcohol Use: Denies Use Recreational Drug Use: No Smoking Status: Never a Smoker 2nd Hand Smoke Exposure: No Recent Foreign Travel: No Contact w/Someone Who Travel: No Recent Infectious Disease Expo: No Recent Hopitalizations: Yes Immunizations Up To Date Tetanus Booster (TDap): Unknown Date of Pneumonia Vaccine: Jan 07, 2018 Date of Influenza Vaccine: Jan 07, 2018 Seasonal Allergies Seasonal Allergies: No Surgeries History of Surgeries: Yes (TUBAL, 1 OPEN EXPLORATORY, 6 HERNIA REPAIRS , I &D OF ABD WOUND, CARPAL POLINA) Surgeries: Abdominal Respiratory History of Respiratory Disorde: No Cardiovascular History of Cardiac Disorders: No Cardiac Disorders: Hypertension Neurological History of Neurological Disord: No Reproductive System Hx Reproductive Disorders: No Genitourinary History of Genitourinary Disor: No Gastrointestinal History of Gastrointestinal Di: Yes (FISTULA, HERNIA WITH MESH, OPEN ABD WOUND TO CENTER OF ABD) Gastrointestinal Disorders: Hepatitis Musculoskeletal History of Musculoskeletal Dis: Yes Musculoskeletal Disorders: Arthritis Endocrine History of Endocrine Disorders: Yes Endocrine Disorders: Hypothyroidsim HEENT History of HEENT Disorders: No Cancer History of Cancer: No Psychosocial History of Psychiatric Problem: No Integumentary History of Skin or Integumenta: No Blood Transfusions History of Blood Disorders: No Family Medical History Significant Family History: Heart Disease, Renal Disease Review of Systems-General Constitutional: no symptoms reported EENTM: no symptoms reported Respiratory: no symptoms reported Cardiovascular: no symptoms reported Gastrointestinal: see HPI Genitourinary: see HPI Musculoskeletal: no symptoms reported Skin: no symptoms reported Psychiatric/Neurological: No Symptoms Reported Physical Exam-General Problems Physical Exam Vital Signs Vital Signs - First Documented 09/13/18 16:15 Temp 98.3 Pulse 85 Resp 16 B/P (MAP) 116/75 (89) Pulse Ox 85 O2 Delivery Room Air Capillary Refill : Less Than 3 Seconds General Appearance: no apparent distress, obese HEENT: PERRL/EOMI, normal ENT inspection Neck: non-tender, supple Respiratory: chest non-tender, no respiratory distress, no accessory muscle use Cardiovascular: regular rate, rhythm Gastrointestinal: non tender, soft, other (large enterocutaneous fistula) Rectal: deferred Back: no CVA tenderness Extremities: non-tender, normal inspection, no pedal edema Neurologic/Psychiatric: no motor/sensory deficits, alert, normal mood/affect, oriented x 3 Skin: normal color, warm/dry Lymphatic: no adenopathy Data Review Labs Laboratory Tests 09/13/18 16:22: White Blood Count 10.2, Red Blood Count 4.12L, Hemoglobin 12.5, Hematocrit 38, Mean Corpuscular Volume 93, Mean Corpuscular Hemoglobin 30, Mean Corpuscular Hemoglobin Concent 33, Red Cell Distribution Width 19.6H, Platelet Count 516H, Mean Platelet Volume 10.1, Neutrophils (%) (Auto) 45, Lymphocytes (%) (Auto) 41, Monocytes (%) (Auto) 11, Eosinophils (%) (Auto) 4, Basophils (%) (Auto) 1, Neutrophils # (Auto) 4.5, Lymphocytes # (Auto) 4.1H, Monocytes # (Auto) 1.1H, Eosinophils # (Auto) 0.4H, Basophils # (Auto) 0.1, Prothrombin Time 14.1, INR Comment 1.1, Activated Partial Thromboplast Time 31, Sodium Level 135, Potassium Level 3.8, Chloride Level 97L, Carbon Dioxide Level 26, Anion Gap 12, Blood Urea Nitrogen 30H, Creatinine 1.09, Estimat Glomerular Filtration Rate 51, BUN/Creatinine Ratio 28, Glucose Level 97, Lactic Acid Level 2.18*H, Calcium Level 9.2, Corrected Calcium 9.9, Total Bilirubin 1.8H, Aspartate Amino Transf (AST/SGOT) 63H, Alanine Aminotransferase (ALT/SGPT) 44, Alkaline Phosphatase 127, Total Protein 8.9H, Albumin 3.1L 09/13/18 16:57: Urine Color AMBERH, Urine Clarity VERY CLOUDYH, Urine pH 7, Urine Specific [place] 1.010L, Urine Protein 2+H, Urine Glucose (UA) NEGATIVE, Urine Ketones NEGATIVE, Urine Nitrite NEGATIVE, Urine Bilirubin NEGATIVE, Urine Urobilinogen NORMAL, Urine Leukocyte Esterase 3+H, Urine RBC (Auto) 1+H, Urine RBC NONE, Urine WBC >100H, Urine Squamous Epithelial Cells 5-10, Urine Crystals NONE, Urine Bacteria LARGEH, Urine Casts NONE, Urine Mucus NEGATIVE, Urine Culture Indicated CULTURE PENDING 09/13/18 18:54: Lactic Acid Level 1.32 Assessment/Plan Assessment/Plan Assessment/Plan Urinary tract infection Enterocutaneous fistula History of ventral hernia repair Patient is with urinary tract infection admitted for IV antibiotics. npo. Her lactic acid slightly elevated await repeat, IV hydration, IV antibiotics, patient to be on TPN. Patient has PICC line. No surgical intervention at this time. Patient to continue with wound care with no changes to way she's been doing it. Will follow ANGELINA MARQUES DO Sep 13, 2018 19:20
--- NOTE | 2018-09-13 20:15 | NUR ---
THIS RN TO ASSUME CARE OF PT AT THIS TIME. REPORT RECEIVED FROM DASIA STEPHENS
[2018-09-13] MEDS: VANCOMYCIN 1500 MG/NS 500 ML IVPB IV NR ×4 (20:23→21:38)
[2018-09-13] MEDS: NOREPINEPHRINE 4 MG in NS (IVPB) 250 ML IV SCH (20:23)
--- OUTSIDE RECORDS SUMMARY | 2018-09-13 20:40 | XMS REPORT | Clinical Summary ---
Author Author [facility] Organization [facility] Address Unknown Phone Unavailable Care Team Providers Care Electronics Supervisor Name Role Phone Mamie Schuster MD PCP Source Comments Some departments are not documenting in the electronic medical record. If you d o not see the information that you expected, contact Release of Information in [facility] Information Management department at [phone] for further assistan ce in locating additional records.[facility] Allergies No Known Allergies Medications End [...] Niles Barney MD 06/26/2018 Emergency Emergency Medicine from Last 3 Months Family History Medical [...] CDT Blood Pressure 117/72 05/21/2018 9:38 AM WEB CONTENT PRODUCER Pulse 122 06/26/2018 12:22 PM CDT Temperature 36.5 C (97.7 F) 05/21/2018 9:38 AM WEB CONTENT PRODUCER Respiratory Rate 18 06/26/2018 9:00 PM CDT [...] 08/22/2005 VACCINE (1 of 2) INFLUENZA VACCINE 01/07/2019 Procedures Comments Procedure Name Priority Date/Time Associated Diagnosis CT ABD/PELV W CONTRAST STAT 06/26/2018 4:48 PM CDT POC LACTATE 06/26/2018 2:13 PM CDT COMPREHENSIVE METABOLIC STAT 06/26/2018 PANEL 12:37 PM CDT CBC AND DIFF STAT 06/26/2018 12:37 PM CDT from Last 3 Months Results * CT [...] persistent anterior abdominal wound with soft tissue defect.There is a persistent thin linear gas fluid [...] on 06/26/2018 4:50 PM. Performing Organization Address City/[facility]/Zipcode Phone Number RAD RESULTS * POC LACTATE (06/26/2018 2:13 PM CDT) Pathologist [facility] LACTIC ACID POC 1.2 0.5 - 2.0 MMOL/L MAIN LAB Performing Organization Address City/[facility]/Zipcode Phone Number [facility] [address] [place] [address] * CBC AND DIFF (06/26/2018 12:37 PM CDT) White Blood 8.5 4.5 - 11.0 K/UL [...] City/State/Zipcode Phone Number [facility] [address] [place] [address] * COMPREHENSIVE METABOLIC PANEL (06/26/2018 12:37 PM CDT) [facility] Signature Sodium 138 137 - 147 MMOL/L [facility] [...] >60 >60 mL/min [facility] Comment: Chinese The eGFR is not validated for use in drug dosing adjustments.Continue to use estimated creatinine clearance per dosing reference text.Please contact the Clinical Pharmacist for questions. eGFR >60 >60 mL/min [facility] Chinese Comment: The eGFR is not validated for use in drug dosing adjustments.Continue to use estimated creatinine clearance per dosing reference text.Please contact the Clinical Pharmacist for questions. Specimen Blood Performing Organization Address City/State/Zipcode Phone Number [facility] [address] [place] [address] from Last 3 Months Insurance Type Payer Benefit Subscriber ID Effective Phone Address Plan / Dates Group Medicare HUMANA MEDICARE HUMANA xxxxxxxxx 2018-P CHOICE PPO resent Advance Directives Patient has advance care planning documents, and code status on file. For more i nformation, please contact: [facility] [address] [place] [address] Date Inactivated Comments Code Status Date Activated 05/10/2018 2:56 PM Full Code 05/09/2018 12:43 AM Provider has discussed Code Status Yes w/Patient or Family?
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
--- OUTSIDE RECORDS SUMMARY | 2018-09-13 20:41 | XMS REPORT ---
Author Author Migration, Doctor Organization [facility] Address Unknown Phone Unavailable Care Team Providers Care Call Center Support Consultant Name Role Phone Migration, Doctor Unavailable Unavailable PROBLEMS Type Condition ICD9-CM Code MPX80-TT Code Onset Dates Condition Status SNOMED Code Problem Mixed hyperlipidemia E78.2 Active 587407052 Problem Hypothyroidism, unspecified E03.9 Active 550264857 Problem Type 2 diabetes mellitus with hyperglycemia E11.65 Active 38949875 Problem Primary osteoarthritis involving multiple joints M15.0 Active 380282558 Problem Essential hypertension I10 Active 74982683 Problem Type 2 diabetes mellitus with diabetic polyneuropathy, without long-term current use of insulin E11.42 Active 24453009 Problem Acquired asplenia Z90.81 Active 652510602 Problem Incisional hernia, without obstruction or gangrene K43.2 Active 019739961 Problem Locking of left knee M23.92 Active [id number] Problem Sensorineural hearing loss of both ears H90.3 Active 153546808 Problem Recurrent major depressive disorder, in full remission F33.42 Active 33357050 Problem Chronic hepatitis C without hepatic coma B18.2 Active 122606512 Problem Elevated platelet count D47.3 Active 9041910 Problem BMI 50.0-59.9, adult Z68.43 Active 893195101 Problem Other chronic pain G89.29 Active 84975193 Problem Primary osteoarthritis of both knees M17.0 Active 844801482 ALLERGIES No Information ENCOUNTERS Encounter Location Date Diagnosis [facility] [id number] [place] [address] August, [facility] [id number] [place] [address] Jul, Morbid obesity E66.01 ; Dysuria R30.0 and Acute cystitis with hematuria N30.01 [facility] [address], [place] [address] Jul, [facility] [address] [address] Jun, [facility] [address] [facility] [id number] [address] Jun, [facility] [address] [address] Jun, [facility] [address], [place] [address] May, [facility] [address], [place] [address] May, [facility] [address], [place] [address] May, Hypothyroidism, unspecified E03.9 [facility] [address], [place] [address] May, [facility] [address], [place] [address] May, Hypothyroidism, unspecified E03.[address] [address] Apr, [facility] [id number] [address] Apr, [facility] [id number] [address] Apr, [facility] [id number], [place] [address] Apr, Type 2 diabetes mellitus with hyperglycemia E11.65 [facility] [id number] [address] Apr, [facility] [id number], [place] [address] Apr, [facility] [id number] [address] Apr, Hypothyroidism, unspecified E03.9 ; Mixed hyperlipidemia E78.2 ; Type 2 diabetes mellitus with hyperglycemia E11.65 and Elevated platelet count D47.3 [place] [id number] [place] [address] 14 Apr, 2018 [facility] [id number] [place] [address] 14 Apr, 2018 Type 2 diabetes mellitus with hyperglycemia E11.65 ; Mixed hyperlipidemia E78.2 ; Hypothyroidism, unspecified E03.9 ; Elevated platelet count D47.3 ; Recurrent major depressive disorder, in full remission F33.42 ; BMI 45.0-49.9, adult Z68.42 ; Tinea corporis B35.4 ; Screening mammogram, encounter for Z12.31 ; Colon cancer screening Z12.11 ; Chronic hepatitis C without hepatic coma B18.2 and Type 2 diabetes mellitus with diabetic polyneuropathy, without long-term current use of insulin E11.42 [place] [address] [address] 14 Mar, 2018 Hypothyroidism, unspecified E03.9 [place] [id number] [place] [address] 11 Mar, 2018 Hypothyroidism, unspecified E03.9 [place] [id number] [place] [address] 27 Feb, 2018 [place] [id number] [place] [address] Feb, [facility] [id number] [place] [address] Feb, BMI 45.0-49.9, adult Z68.42 and Unspecified open wound of abdominal wall, unspecified quadrant without penetration into peritoneal cavity, initial encounter S31.109A [place] [id number] [place] [address] Feb, [place] [address] [address] Feb, [place] [address], [place] [address] Jan, Medicare annual wellness visit, initial Z00.00 ; BMI 45.0-49.9, adult Z68.42 ; Type 2 diabetes mellitus [...] remission F33.42 and Encounter for immunization Z23 [place] [id number] [place] [address] Jan, [place] [id number] [place] [address] Jan, Hypothyroidism, unspecified E03.9 [place] [id number] [place] [address] Sep, [place] [id number] [place] [address] Sep, Chronic hepatitis C without hepatic coma B18.2 and Hypothyroidism, unspecified E03.9 [place] [id number] [place] [address] Sep, Essential hypertension I10 [place] [id number] [place] [address] Jun, Hypothyroidism, unspecified E03.9 [place] [id number] [place] [address] Jun, Chronic hepatitis C without hepatic coma B18.2 and Hypothyroidism, unspecified E03.9 [place] [id number] [place] [address] Jun, [place] [id number] [place] [address] Jun, BMI 45.0-49.9, adult Z68.42 ; Essential hypertension I10 ; Major depressive disorder, recurrent, unspecified F33.9 ; Elevated platelet count D47.3 ; Primary osteoarthritis involving multiple joints M15.0 ; Locking of left knee M23.92 ; Right knee buckling M25.361 and Primary osteoarthritis of both knees M17.0 [place] [id number] [place] [address] Apr, Hypothyroidism, unspecified E03.9 [place] [id number] [place] [address] Apr, Type 2 diabetes mellitus with hyperglycemia [...] immunization Z23 and BMI 50.0-59.9, adult Z68.43 [place] [id number] [place] [address] Nov, Elevated platelet count D47.3 [place] [id number] [place] [address] Oct, Mixed hyperlipidemia E78.2 ; Essential hypertension I10 ; Major depressive disorder, recurrent, unspecified F33.9 and Type 2 diabetes mellitus with diabetic polyneuropathy, without long-term current use of insulin E11.42 [place] [id number] [place] [address] Oct, Elevated platelet count D47.3 [place] [id number] [place] [address] Oct, Chronic hepatitis C without hepatic coma B18.2 [facility] [id number] [place] [address] Sep, [facility] [id number] [place] [address] Sep, Mixed hyperlipidemia E78.2 [place] [id number] [place] [address] Mar, [place] [id number] [place] [address] Mar, Incisional hernia, without obstruction or gangrene K43.2 [place] [id number] [place] [address] Feb, Chronic hepatitis C without hepatic coma B18.2 [place] [id number] [place] [address] Jan, [place] [id number] [place] [address] Jan, [place] [id number] [place] [address] Jan, Type 2 diabetes mellitus with diabetic polyneuropathy, without long- term current use of insulin E11.42 ; Hypothyroidism, unspecified E03.9 ; Mixed hyperlipidemia E78.2 ; Essential hypertension I10 ; Major depressive disorder, recurrent, unspecified F33.9 ; Acquired asplenia Z90.81 ; Encounter for immunization Z23 and Chronic hepatitis C without hepatic coma B18.2 [place] [address] [place] [address] 12 Jan, 2016 Type 2 diabetes mellitus with hyperglycemia E11.65 ; Mixed hyperlipidemia E78.2 and Hypothyroidism, unspecified E03.9 [place] [address] [place] [address] 15 Dec, 2015 Chronic hepatitis C without hepatic coma B18.2 [place] [id number] [place] [address] Nov, [facility] [id number], [place] [address] Nov, [facility] [address], [place] [address] Oct, [facility] [address], [place] [address] Oct, [facility] [address] [place] [address] Sep, [facility] [address] [place] [address] Sep, Hypothyroidism, unspecified E03.9 [facility] [address] [place] [address] Sep, Chronic hepatitis C without hepatic coma B18.2 [facility] [id number] [place] [address] Sep, Type 2 diabetes mellitus with hyperglycemia E11.65 ; Chronic hepatitis C without hepatic coma B18.2 ; Hypothyroidism, unspecified E03.9 ; Major depressive disorder, recurrent, unspecified F33.9 ; Essential hypertension I10 ; Mixed hyperlipidemia E78.2 and Type 2 diabetes mellitus with diabetic polyneuropathy, without long-term current use of insulin E11.42 [facility] [address], [place] [address] August, [facility] [address] [address] August, Breast nodule N63 [facility] [address] [address] Feb, [facility] [address], [place] [address] Feb, Breast nodule N63 [facility] [id number] [address] Jan, Essential hypertension I10 ; Chronic hepatitis C without hepatic coma B18.2 ; Major depressive disorder, recurrent, unspecified F33.9 ; Type 2 diabetes mellitus with hyperglycemia E11.65 and Tinnitus of both ears H93.13 [place] [id number] [place] [address] Jan, Hypothyroidism, unspecified E03.[address] [address] Jan, Hyperlipidemia LDL goal <100 272.4 ; Unspecified hypothyroidism 244.9 and Acute renal insufficiency 593.[address] [address] Jan, Breast screening Z12.[address] [address] Oct, Breast cancer screening V76.[address] [address] Sep, Chronic hepatitis C without mention of hepatic coma 070.54 and Acute renal insufficiency 593.[address] [address] Sep, Routine gynecological examination V72.31 ; Pap test, as part of routine gynecological examination V76.2 ; Breast cancer screening V76.10 ; Postmenopausal V49.81 and Vulvar itching 698.[address] [address] Sep, Chronic hepatitis C without mention of hepatic coma 070.54 ; Acute renal insufficiency 593.9 and Hyperlipidemia LDL goal <[address] [address] Sep, Chronic hepatitis C without mention of hepatic coma 070.54 ; Unspecified hypothyroidism 244.9 ; Essential hypertension, benign 401.1 ; Osteoarthritis 715.90 ; Diabetes mellitus without mention of complication, type II or unspecified type, uncontrolled 250.02 and Colon cancer screening V76.51 [place] [address] [id number] [place] [address] 18 Sep, 2014 [facility] [place] [facility] [address] [id number] [place] [address] 14 Jul, 2014 [facility] [place] [facility] [address] [id number] [place] [address] Jul, [facility] [place] [facility] [address] [id number] [place] [address] 10 Dec, 2013 [facility] [place] [facility] [address] [id number] [place] [address] Dec, [facility] [place] [facility] [address] [id number] [place] [address] Oct, [facility] [place] [facility] [address] [id number] [place] [address] Oct, [facility] [place] [facility] [address] [id number] [place] [address] Sep, [facility] [place] [facility] [address] [id number] [place] [address] Sep, [facility] [place] [facility] [address] [id number] [place] [address] August, [facility] [place] [facility] [address] [id number] [place] [address] August, [facility] [place] [facility] [address] [id number] [place] [address] August, [facility] [place] [facility] [address] [id number] [place] [address] August, [facility] [place] [facility] [address] [id number] [place] [address] August, [facility] [place] [facility] [address] [id number] [place] [address] August, [facility] [place] [facility] [address] [id number] [place] [address] Mar, [facility] [address] [facility] [id number] [address] Mar, [facility] [id number], [place] [address] Mar, [facility] [id number] [address] Mar, [facility] [address], [place] [address] Feb, [facility] [id number], [place] [address] Feb, [facility] [address], [place] [address] Feb, [facility] [id number] [address] Feb, IMMUNIZATIONS No Known Immunizations SOCIAL HISTORY Never Assessed REASON FOR VISIT [facility] PLAN OF CARE VITAL SIGNS MEDICATIONS Unknown [...]
[2018-09-13] MEDS ORDERED: TPN IV SCH (20:45)
[2018-09-13] MEDS ORDERED: fentaNYL INJECTION 100 MCG/2 ML AMP IVP PRN (20:45)
[2018-09-13] MEDS ORDERED: HYDROcodone/APAP 5 MG/325 MG (LORTAB) TAB PO PRN (20:45)
[2018-09-13] MEDS ORDERED: DOCUSATE SODIUM 100 MG (COLACE) CAP PO PRN (20:45)
[2018-09-13] MEDS ORDERED: MELATONIN 3 MG TABLET PO PRN (20:45)
[2018-09-13] MEDS ORDERED: LOPERAMIDE 2 MG (IMODIUM) CAP PO PRN (20:45)
[2018-09-13] MEDS ORDERED: ACETAMINOPHEN 500 MG TAB (TYLENOL) PO PRN (20:45)
[2018-09-13] MEDS ORDERED: ALPRAZolam 0.25 MG (XANAX) TAB PO PRN (20:45)
[2018-09-13] MEDS ORDERED: diphenhydrAMINE 25 MG TAB (BENADRYL) PO PRN (20:45)
[2018-09-13] MEDS ORDERED: CALCIUM CARBONATE 500 MG (TUMS) TAB.CHEW PO PRN (20:45)
[2018-09-13] MEDS ORDERED: ONDANSETRON 4 MG/2 ML (SDV) Z0FRAN IVP PRN (20:45)
[2018-09-13] MEDS: NS IV 1000 ML 1,000 ML IV SCH ×3 (21:00→23:24)
--- NOTE | 2018-09-13 21:00 | NUR ---
CLARIFIED DUPLICATE FLUID ORDERS WITH DR CANDELARIO. D/C SEPTIC FLUID ORDERS-NS AT 125CC/HR
[2018-09-13] MEDS: SENNA W/DOCUSATE (SENOKOT S) TABLET PO SCH (21:23)
[2018-09-14] VITALS (16 sets, daily range): BP systolic 100–126; BP diastolic 57–89
[2018-09-14] MEDS: PIPERACILLIN/TAZO 4.5 GM/NS 100 ML IV SCH ×6 (00:54→15:28)
[2018-09-14] MEDS: NOREPINEPHRINE 4 MG in NS (IVPB) 250 ML IV SCH ×2 (01:13→05:39)
[2018-09-14 04:21] LABS: BASOPHILS % (AUTO) 1 % (0-10); EOSINOPHILS # (AUTO) 0.3 10^3/uL (0.0-0.3); EOSINOPHILS % (AUTO) 4 % (0-10); HEMATOCRIT 36 % (35-52); HEMOGLOBIN 11.5 G/DL (11.5-16.0); LYMPHOCYTES # (AUTO) 2.7 X 10^3 (1.0-4.0); LYMPHOCYTES % (AUTO) 31 % (12-44); MEAN CORPUSCULAR HEMOGLOBIN 30 PG (25-34); MEAN CORPUSCULAR HGB CONC 32 G/DL (32-36); MEAN CORPUSCULAR VOLUME 93 FL (80-99); MEAN PLATELET VOLUME 10.1 FL (7.4-10.4); MONOCYTES % (AUTO) 11 % (0-12); NEUTROPHILS # (AUTO) 4.7 X 10^3 (1.8-7.8); NEUTROPHILS % (AUTO) 54 % (42-75); PLATELET COUNT 486 10^3/uL (130-400); RED CELL DISTRIBUTION WIDTH 19.6 % (10.0-14.5); WHITE BLOOD COUNT 8.8 10^3/uL (4.3-11.0)
[2018-09-14 04:32] LABS: INR 1.1 (0.8-1.4); PROTHROMBIN TIME PATIENT 14.5 SEC (12.2-14.7)
[2018-09-14 04:43] LABS: ALBUMIN 2.7 GM/DL (3.2-4.5); BILIRUBIN,TOTAL 1.6 MG/DL (0.1-1.0); CALCIUM 8.5 MG/DL (8.5-10.1); CREATININE SERUM 1.08 MG/DL (0.60-1.30); MAGNESIUM 1.9 MG/DL (1.8-2.4); POTASSIUM 3.6 MMOL/L (3.6-5.0); TOTAL PROTEIN 7.8 GM/DL (6.4-8.2)
[2018-09-14] MEDS: VANCOMYCIN 1250 MG/NS 250 ML IVPB IV SCH ×4 (06:16→20:37)
[2018-09-14] MEDS: NS IV 1000 ML 1,000 ML IV SCH ×3 (08:17→20:37)
[2018-09-14] MEDS: SENNA W/DOCUSATE (SENOKOT S) TABLET PO SCH ×2 (10:38→20:43)
--- NOTE | 2018-09-14 12:13 | History & Physical-Hospitalist ---
History of Present Illness HPI/Chief Complaint Chief complaint: Sepsis with UTI History of present illness: This is a 63-year-old white female who presented to [facility] ER after a delay of admission to swing bed status which was requested 72 hours before for IV ampicillin for resistant UTI but patient became sicker and sicker resulting in presenting to the [facility] ER and diagnosed with sepsis requiring cardiac stepdown monitoring and requiring broad-spectrum antibiotics in case the delay of treatment to swing bed in [facility] caused a resistant organism to occur. Patient is maintained on TPN at night and noted her lactic acid had improved with IV fluids and patient is stable and will be moved down to fourth floor. [employer] had been contacted last week and arrangements were being made after multiple records requested by the in [employer] from [facility] in addition to request from [facility] and [facility] but continued to have difficulty contacting the insurance company in obtaining that approval and that delay undoubtedly was a factor in her becoming septic and requiring admission through the ER.. Patient developed an abdominal fistula after hernia repair in June [address] Devine. Patient has been NPO and on home TPN awaiting repair of the abdominal fistula. She sees Dr. Lan at for her fistula but has not had it repaired yet due to not being at goal weight. Source: patient Exam Limitations: no limitations Date Seen 09/14/18 Time Seen by a Provider: 11:30 Attending Physician Michelle Craft Bethany N MD Referring Physician Date of Admission Sep 13, 2018 at 17:20 Home Medications & Allergies Home Medications Reviewed patient Home Medication Reconciliation performed by pharmacy medication reconciliations senior electronics technician and/or nursing. Patients Allergies have been reviewed. Allergies Allergies Coded Allergies linezolid (Verified Allergy, Severe, swelling to tongue, skin rash, 09/13/18) Past Fwnydvr-Igiffx-Xhpqjp Hx Past Med/Social Hx: Reviewed Nursing Past Med/Soc Hx, Reviewed and Corrections made Patient Social History Marrital Status: single Employed/Student: unemployed Alcohol Use: Denies Use Recreational Drug Use: No Smoking Status: Never a Smoker 2nd Hand Smoke Exposure: No Recent Foreign Travel: No Contact w/other who traveled: No Recent Hopitalizations: Yes Recent Infectious Disease Expo: No Immunizations Up To Date Tetanus Booster (TDap): Unknown Date of Pneumonia Vaccine: Apr 09, 2018 Date of Influenza Vaccine: Jan 07, 2018 Seasonal Allergies Seasonal Allergies: No Past Medical History Surgeries: Abdominal Cardiac: Hypertension Reproductive: No Gastrointestinal: Hepatitis Musculoskeletal: Arthritis Endocrine: Hypothyroidsim History of Blood Disorders: No Family History Reviewed Nursing Family Hx Heart Disease, Renal Disease Review of Systems Constitutional: see HPI, dizziness, fever, weakness EENTM: no symptoms reported Respiratory: no symptoms reported Cardiovascular: no symptoms reported Gastrointestinal: abdominal pain Genitourinary: decreased output, dysuria, frequency, hematuria, incontinence Musculoskeletal: no symptoms reported Skin: no symptoms reported Psychiatric/Neurological: No Symptoms Reported All Other Systems Reviewed Negative Unless Noted: Yes Physical Exam Physical Exam Vital Signs Vital Signs - First Documented 09/13/18 16:15 Temp 98.3 Pulse 85 Resp 16 B/P (MAP) 116/75 (89) Pulse Ox 85 O2 Delivery Room Air Capillary Refill : Less Than 3 Seconds Height, Weight, BMI Height: 5'3.00" Weight: 232lbs. 0.0oz. 105.857659pz; 41.0 BMI Method:Actual General Appearance: No Apparent Distress, WD/WN, Chronically ill Eyes: Right Eye Normal Inspection, Right Eye PERRL HEENT: PERRL/EOMI, Normal ENT Inspection, Pharynx Normal, Moist Mucous Membranes Neck: Full Range of Motion, Normal Inspection, Non Tender Respiratory: Chest Non Tender, Lungs Clear, Normal Breath Sounds, No Accessory Muscle Use, No Respiratory Distress Cardiovascular: Regular Rate, Rhythm, No Edema, No Gallop, No JVD, No Murmur, Normal Peripheral Pulses Gastrointestinal: Normal Bowel Sounds, No Organomegaly Back: Normal Inspection, No CVA Tenderness, No Vertebral Tenderness Extremity: Normal Capillary Refill, Normal Inspection, Normal Range of Motion, Non Tender, No Calf Tenderness, No Pedal Edema Neurologic/Psychiatric: Alert, Oriented x3, No Motor/Sensory Deficits, Normal Mood/Affect Skin: Normal Color, Warm/Dry Lymphatic: No Adenopathy Results Results/Procedures Labs Laboratory Tests 09/13/18 16:22 09/14/18 03:58 Patient resulted labs reviewed. Assessment/Plan Admission Diagnosis Assessment: Sepsis UTI Fistula on TPN Plan: Broad spectrum abx IVF TPN Admission Status: Inpatient Order (span 2 midnights) Reason for Inpatient Admission: IV abx for sepsis will require 3 days Diagnosis/Problems Diagnosis/Problems (1) Sepsis Status: Acute Qualifiers: Sepsis type: sepsis due to unspecified organism Qualified Codes: A41.9 - Sepsis, unspecified organism (2) Urinary tract infection Status: Acute Qualifiers: Urinary tract infection type: acute cystitis Hematuria presence: without hematuria Qualified Codes: N30.00 - Acute cystitis without hematuria (3) Malnutrition Status: Acute Qualifiers: Malnutrition type: protein-calorie malnutrition (4) Weakness generalized Status: Acute Clinical Quality Measures DVT/VTE Risk/Contraindication: Risk Factor Score Per Nursin RFS Level Per Nursing on Admit: 4+=Very High MICHELLE CRAFT DO Sep 14, 2018 12:13
--- NOTE | 2018-09-14 12:40 | Progress Note ---
Subjective Date Seen by a Provider: Sep 14, 2018 Time Seen by a Provider: 12:35 Subjective/Events-last exam patient in enterocutaneous fistulas still with significant output. Patient being treated for urinary tract infection sepsis. Patient tolerated better today. She has no new complaints. She denies any nausea vomiting fever sweats chills shortness of breath or chest pain. Focused Exam Lactate Level 09/13/18 16:22: Lactic Acid Level 2.18*H 09/13/18 18:54: Lactic Acid Level 1.32 Objective Exam Vital Signs Date Time Temp Pulse Resp B/P (MAP) Pulse Ox O2 Delivery O2 Flow Rate FiO2 09/14/18 12:32 74 09/14/18 12:16 91 Room Air 09/14/18 12:03 76 17 107/67 (80) 96 Room Air 09/14/18 11:05 80 25 114/82 (93) 92 Room Air 09/14/18 10:31 75 9 104/73 (83) 96 Room Air 09/14/18 09:12 72 12 112/77 (89) 95 Room Air 09/14/18 09:00 95 Room Air 09/14/18 08:00 91 Room Air 09/14/18 08:00 73 18 109/71 (84) 95 Room Air 09/14/18 07:00 80 09/14/18 06:00 71 19 124/86 (99) 94 Room Air 09/14/18 05:00 69 12 120/84 (96) 94 Room Air 09/14/18 04:00 91 Room Air 09/14/18 04:00 96.9 09/14/18 04:00 79 11 121/89 (100) 94 Room Air 09/14/18 03:00 79 16 116/82 (93) 89 Room Air 09/14/18 02:00 72 18 121/57 (78) 91 Room Air 09/14/18 01:00 79 09/14/18 01:00 76 16 111/83 (92) 89 Room Air 09/14/18 00:00 67 16 126/86 (99) 90 Room Air 09/14/18 00:00 91 Room Air 09/14/18 00:00 97.0 09/13/18 23:00 74 14 116/84 (95) 91 Room Air 09/13/18 22:00 77 9 100/68 (79) 97 Room Air 09/13/18 21:00 79 9 108/81 (90) 98 Room Air 09/13/18 20:15 97 Room Air 09/13/18 20:00 74 12 103/72 (82) 94 Room Air 09/13/18 20:00 97.3 09/13/18 19:30 9 84/57 (66) 96 Room Air 09/13/18 19:15 80 16 96/81 (86) 96 Room Air 09/13/18 19:00 79 09/13/18 19:00 61 8 95 Room Air 09/13/18 18:45 78 14 95 Room Air 09/13/18 18:34 97.8 80 10 96/57 (70) 97 Room Air 09/13/18 18:34 78 09/13/18 18:30 78 14 96/57 (70) 95 Room Air 09/13/18 18:21 99.0 80 18 89/65 (73) 95 Room Air 09/13/18 16:15 98.3 85 16 116/75 (89) 85 Room Air I & O 09/14/18 07:00 Intake Total 1635 ml Output Total 1450 ml Balance 185 ml Capillary Refill : Less Than 3 Seconds General Appearance: No Apparent Distress Neck: Non Tender, Supple Respiratory: Chest Non Tender, No Accessory Muscle Use, No Respiratory Distress Cardiovascular: Regular Rate, Rhythm Gastrointestinal: non tender, soft, other (large enterocutaneous fistula) Extremity: Non Tender, No Calf Tenderness Neurologic/Psychiatric: Alert, Oriented x3, No Motor/Sensory Deficits, Normal Mood/Affect, sports physiotherapist II-XII Norm as Tested Skin: Normal Color, Warm/Dry Lymphatic: No Adenopathy Results Lab Laboratory Tests 09/13/18 16:22: White Blood Count 10.2, Red Blood Count 4.12L, Hemoglobin 12.5, Hematocrit 38, Mean Corpuscular Volume 93, Mean Corpuscular Hemoglobin 30, Mean Corpuscular Hemoglobin Concent 33, Red Cell Distribution Width 19.6H, Platelet Count 516H, Mean Platelet Volume 10.1, Neutrophils (%) (Auto) 45, Lymphocytes (%) (Auto) 41, Monocytes (%) (Auto) 11, Eosinophils (%) (Auto) 4, Basophils (%) (Auto) 1, Neutrophils # (Auto) 4.5, Lymphocytes # (Auto) 4.1H, Monocytes # (Auto) 1.1H, Eosinophils # (Auto) 0.4H, Basophils # (Auto) 0.1, Prothrombin Time 14.1, INR Comment 1.1, Activated Partial Thromboplast Time 31, Sodium Level 135, Potassium Level 3.8, Chloride Level 97L, Carbon Dioxide Level 26, Anion Gap 12, Blood Urea Nitrogen 30H, Creatinine 1.09, Estimat Glomerular Filtration Rate 51, BUN/Creatinine Ratio 28, Glucose Level 97, Lactic Acid Level 2.18*H, Calcium Level 9.2, Corrected Calcium 9.9, Total Bilirubin 1.8H, Aspartate Amino Transf (AST/SGOT) 63H, Alanine Aminotransferase (ALT/SGPT) 44, Alkaline Phosphatase 127, Total Protein 8.9H, Albumin 3.1L 09/13/18 16:57: Urine Color AMBERH, Urine Clarity VERY CLOUDYH, Urine pH 7, Urine Specific [place] 1.010L, Urine Protein 2+H, Urine Glucose (UA) NEGATIVE, Urine Ketones NEGATIVE, Urine Nitrite NEGATIVE, Urine Bilirubin NEGATIVE, Urine Urobilinogen NORMAL, Urine Leukocyte Esterase 3+H, Urine RBC (Auto) 1+H, Urine RBC NONE, Urine WBC >100H, Urine Squamous Epithelial Cells 5-10, Urine Crystals NONE, Urine Bacteria LARGEH, Urine Casts NONE, Urine Mucus NEGATIVE, Urine Culture Indicated CULTURE PENDING 09/13/18 18:54: Lactic Acid Level 1.32 09/14/18 00:52: Glucometer 121H 09/14/18 03:58: White Blood Count 8.8, Red Blood Count 3.88L, Hemoglobin 11.5, Hematocrit 36, Mean Corpuscular Volume 93, Mean Corpuscular Hemoglobin 30, Mean Corpuscular Hemoglobin Concent 32, Red Cell Distribution Width 19.6H, Platelet Count 486H, Mean Platelet Volume 10.1, Neutrophils (%) (Auto) 54, Lymphocytes (%) (Auto) 31, Monocytes (%) (Auto) 11, Eosinophils (%) (Auto) 4, Basophils (%) (Auto) 1, Neut rophils # (Auto) 4.7, Lymphocytes # (Auto) 2.7, Monocytes # (Auto) 1.0, Eosinophils # (Auto) 0.3, Basophils # (Auto) 0.0, Prothrombin Time 14.5, INR Comment 1.1, Sodium Level 138, Potassium Level 3.6, Chloride Level 104, Carbon Dioxide Level 22, Anion Gap 12, Blood Urea Nitrogen 28H, Creatinine 1.08, Estimat Glomerular Filtration Rate 51, BUN/Creatinine Ratio 26, Glucose Level 151H, Calcium Level 8.5, Corrected Calcium 9.5, Phosphorus Level 3.0, Magnesium Level 1.9, Total Bilirubin 1.6H, Aspartate Amino Transf (AST/SGOT) 52H, Alanine Aminotransferase (ALT/SGPT) 37, Alkaline Phosphatase 117, Total Protein 7.8, Albumin 2.7L, Triglycerides Level 137 Assessment/Plan Assessment/Plan Assessment/Plan Urinary tract infection Enterocutaneous fistula History of ventral hernia repair Patient is with urinary tract infection admitted for IV antibiotics. Keep npo due to fistula, receiving fluids and nutrition with tpn. Her lactic acid slightly elevated repeat normal, IV hydration, IV antibiotics, patient to be on TPN. Patient has PICC line. No surgical intervention at this time. Patient to continue with wound care with no changes to way she's been doing it. we'll sign off at this time please call if needed. Clinical Quality Measures DVT/VTE Risk/Contraindication: Risk Factor Score Per Nursin RFS Level Per Nursing on Admit: 4+=Very High ANGELINA MARQUES DO Sep 14, 2018 12:40
--- NOTE | 2018-09-14 13:05 | NUR ---
Pt to room 410. Report received from DASIA Barr Addendum: 09/14/18 at 1312 by JOLIE MIRANDA RN Agree with previous hydraulic repairer.
--- NOTE | 2018-09-14 13:18 | NUR ---
1300 PT TO ROOM 410 VIA W/C ACCOMPANIED BY THIS RN, ALL PERSONAL ITEMS SENT DOWN WITH PT. REPORT TO SAM FORMAN.
[2018-09-14] MEDS: [UNRECOGNIZED DRUG - NUTRITION] PO SCH (17:17)
[2018-09-15] MEDS: PIPERACILLIN/TAZO 4.5 GM/NS 100 ML IV SCH ×6 (00:12→16:30)
[2018-09-15 04:55] VITALS: BP 106/68
[2018-09-15 05:27] LABS: BASOPHILS % (AUTO) 1 % (0-10); EOSINOPHILS # (AUTO) 0.5 10^3/uL (0.0-0.3); EOSINOPHILS % (AUTO) 6 % (0-10); HEMATOCRIT 32 % (35-52); HEMOGLOBIN 10.5 G/DL (11.5-16.0); LYMPHOCYTES # (AUTO) 2.6 X 10^3 (1.0-4.0); LYMPHOCYTES % (AUTO) 36 % (12-44); MEAN CORPUSCULAR HEMOGLOBIN 31 PG (25-34); MEAN CORPUSCULAR HGB CONC 33 G/DL (32-36); MEAN CORPUSCULAR VOLUME 95 FL (80-99); MEAN PLATELET VOLUME 9.9 FL (7.4-10.4); MONOCYTES # (AUTO) 0.8 X 10^3 (0.0-1.0); MONOCYTES % (AUTO) 11 % (0-12); NEUTROPHILS # (AUTO) 3.5 X 10^3 (1.8-7.8); NEUTROPHILS % (AUTO) 47 % (42-75); PLATELET COUNT 418 10^3/uL (130-400); RED CELL DISTRIBUTION WIDTH 19.7 % (10.0-14.5); WHITE BLOOD COUNT 7.4 10^3/uL (4.3-11.0)
[2018-09-15 05:46] LABS: ALBUMIN 2.4 GM/DL (3.2-4.5); BILIRUBIN,TOTAL 1.2 MG/DL (0.1-1.0); CALCIUM 7.9 MG/DL (8.5-10.1); CREATININE SERUM 0.98 MG/DL (0.60-1.30); POTASSIUM 3.9 MMOL/L (3.6-5.0); TOTAL PROTEIN 6.8 GM/DL (6.4-8.2)
[2018-09-15] MEDS: VANCOMYCIN 1250 MG/NS 250 ML IVPB IV SCH ×2 (06:35)
[2018-09-15 08:00] VITALS: BP 125/78
[2018-09-15] MEDS: SENNA W/DOCUSATE (SENOKOT S) TABLET PO SCH ×2 (08:27→21:00)
--- NOTE | 2018-09-15 10:39 | Progress Note-Hospitalist ---
Subjective HPI/CC On Admission Date Seen by Provider: Sep 15, 2018 Time Seen by Provider: 09:40 Chief complaint: Sepsis with UTI History of present illness: This is a 63-year-old white female who presented to [facility] ER after a delay of admission to swing bed status which was requested 72 hours before for IV ampicillin for resistant UTI but patient became sicker and sicker resulting in presenting to the [facility] ER and diagnosed with sepsis requiring cardiac stepdown monitoring and requiring broad-spectrum antibiotics in case the delay of treatment to swing bed in [facility] caused a resistant organism to occur. Patient is maintained on TPN at night and noted her lactic acid had improved with IV fluids and patient is stable and will be moved down to fourth floor. [employer] had been contacted last week and arrangements were being made after multiple records requested by the insurance company from [facility] in addition to request from [facility] and [facility] but continued to have difficulty contacting the insurance company in obtaining that approval and that delay undoubtedly was a factor in her becoming septic and requiring admission through the ER.. Patient developed an abdominal fistula after hernia repair in June [address] Devine. Patient has been NPO and on home TPN awaiting repair of the abdominal fistula. She sees Dr. Lan at for her fistula but has not had it repaired yet due to not being at goal weight. Subjective/Events-last exam Urine culture was pending until late in the afternoon today and I noted that is now resistant to ampicillin. E. coli identified Sleeping very well at night TPN at night and her daughter sets that up Patient will require Rocephin IV daily and will need to evaluate the options to get that done at [facility] Check labs tomorrow Fistula doing well per Dr. Solares Denies any significant pain Focused Exam Lactate Level 09/13/18 16:22: Lactic Acid Level 2.18*H 09/13/18 18:54: Lactic Acid Level 1.32 Objective Exam Vital Signs Vital Signs Date Time Temp Pulse Resp B/P (MAP) Pulse Ox O2 Delivery O2 Flow Rate FiO2 09/15/18 15:36 98.0 75 20 137/75 (95) 92 Room Air Capillary Refill : Less Than 3 SecondsLess Than 3 Seconds General Appearance: No Apparent Distress, WD/WN, Chronically ill HEENT: PERRL/EOMI, Normal ENT Inspection, Pharynx Normal, Moist Mucous Membranes Neck: Full Range of Motion, Normal Inspection, Non Tender Respiratory: Chest Non Tender, Lungs Clear, Normal Breath Sounds, No Accessory Muscle Use, No Respiratory Distress Cardiovascular: Regular Rate, Rhythm, No Edema, No Gallop, No JVD, No Murmur, Normal Peripheral Pulses Gastrointestinal: Normal Bowel Sounds, No Organomegaly Back: Normal Inspection, No CVA Tenderness, No Vertebral Tenderness Extremity: Normal Capillary Refill, Normal Inspection, Normal Range of Motion, Non Tender, No Calf Tenderness, No Pedal Edema Neurologic/Psychiatric: Alert, Oriented x3, No Motor/Sensory Deficits, Normal Mood/Affect Skin: Normal Color, Warm/Dry Lymphatic: No Adenopathy Results/Procedures Lab Laboratory Tests 09/15/18 05:17 Patient resulted labs reviewed. Assessment/Plan Assessment and Plan Assess & Plan/Chief Complaint Assessment: Sepsis UTI E coli resistant to Ampicillin so DC Vanc and Zosyn and start Rocephin Fistula on TPN Plan: Broad spectrum abx DC and change to Rocephin IV daily IVF heplock TPN Diagnosis/Problems Diagnosis/Problems (1) Sepsis Status: Resolved Qualifiers: Sepsis type: sepsis due to unspecified organism Qualified Codes: A41.9 - Sepsis, unspecified organism Resolution Date/Time: 09/15/18 @ 17:55 (2) Urinary tract infection Status: Acute Qualifiers: Urinary tract infection type: acute cystitis Hematuria presence: without hematuria Qualified Codes: N30.00 - Acute cystitis without hematuria (3) Malnutrition Status: Acute Qualifiers: Malnutrition type: protein-calorie malnutrition (4) Weakness generalized Status: Acute Clinical Quality Measures DVT/VTE Risk/Contraindication: Risk Factor Score Per Nursin RFS Level Per Nursing on Admit: 4+=Very High CY CANDELARIO DO Sep 15, 2018 10:39
[2018-09-15 12:11] VITALS: BP 124/84
[2018-09-15] MEDS: NS IV 1000 ML 1,000 ML IV SCH (13:09)
[2018-09-15 15:36] VITALS: BP 137/75
[2018-09-15] MEDS: [UNRECOGNIZED DRUG - NUTRITION] PO SCH (17:41)
[2018-09-15] MEDS ORDERED: cefTRIAXone 1,000 MG IV (ROCEPHIN) VIAL ONE (18:26)
[2018-09-15] MEDS ORDERED: WATER (STERILE) FOR INJECTION 10 ML ONE (18:26)
[2018-09-15] MEDS: cefTRIAXone FOR IV USE 1,000 MG in WATER (STERILE) FOR INJECTION 10 ML IV SCH (18:38)
[2018-09-15 19:34] VITALS: BP 143/84
[2018-09-15 23:58] VITALS: BP 138/82
[2018-09-16 06:27] LABS: BASOPHILS # (AUTO) 0.1 10^3/uL (0.0-0.1); BASOPHILS % (AUTO) 1 % (0-10); EOSINOPHILS # (AUTO) 0.5 10^3/uL (0.0-0.3); EOSINOPHILS % (AUTO) 6 % (0-10); HEMATOCRIT 34 % (35-52); LYMPHOCYTES # (AUTO) 3.1 X 10^3 (1.0-4.0); LYMPHOCYTES % (AUTO) 44 % (12-44); MEAN CORPUSCULAR HEMOGLOBIN 31 PG (25-34); MEAN CORPUSCULAR HGB CONC 32 G/DL (32-36); MEAN CORPUSCULAR VOLUME 96 FL (80-99); MONOCYTES # (AUTO) 0.8 X 10^3 (0.0-1.0); MONOCYTES % (AUTO) 12 % (0-12); NEUTROPHILS # (AUTO) 2.6 X 10^3 (1.8-7.8); NEUTROPHILS % (AUTO) 37 % (42-75); PLATELET COUNT 471 10^3/uL (130-400); RED CELL DISTRIBUTION WIDTH 20.6 % (10.0-14.5); WHITE BLOOD COUNT 7.1 10^3/uL (4.3-11.0)
[2018-09-16 06:59] LABS: ALANINE AMINOTRANSFERASE 32 U/L (0-55); ALBUMIN 2.6 GM/DL (3.2-4.5); ALKALINE PHOSPHATASE 97 U/L (40-136); BILIRUBIN,TOTAL 0.8 MG/DL (0.1-1.0); BUN/CREATININE RATIO 27; CALCIUM 8.4 MG/DL (8.5-10.1); CARBON DIOXIDE 21 MMOL/L (21-32); CHLORIDE 111 MMOL/L (98-107); CREATININE SERUM 0.91 MG/DL (0.60-1.30); GFR ESTIMATED > 60; GLUCOSE 145 MG/DL (70-105); POTASSIUM 4.2 MMOL/L (3.6-5.0); SODIUM 140 MMOL/L (135-145); TOTAL PROTEIN 7.3 GM/DL (6.4-8.2)
[2018-09-16 08:00] VITALS: BP 135/87
[2018-09-16] MEDS: SENNA W/DOCUSATE (SENOKOT S) TABLET PO SCH ×2 (08:06→08:08)
[2018-09-16] MEDS ORDERED: FLUT9.9S NS (09:34)
[2018-09-16] MEDS ORDERED: METF-399 PO (09:40)
[2018-09-16] MEDS ORDERED: LEVO25TA5 PO (09:40)
[2018-09-16] MEDS ORDERED: LEVO200T6 PO (09:40)
[2018-09-16] MEDS ORDERED: LISI40TA PO (09:40)
[2018-09-16] MEDS ORDERED: PRAV40TA2 PO (09:40)
--- NOTE | 2018-09-16 09:41 | NUR ---
PATIENT STATES SHE HAS NOT TAKEN ANY OF HER MEDICATIONS SINCE SHE GOT HER FISTULA, SHE STATES ABOUT 10 WEEKS. PRIOR TO THAT SHE LISTED SHE WAS TAKING A THYROID MEDICATION, METFORMIN FOR BLOOD SUGAR, BLOOD PRESSURE, AND CHOLESTEROL. I CALLED [facility] FOR A LIST OF MEDICATIONS AND NOTED THE PAST DUE FILL DATE. SHE STATES SHE USES AN OTC NASAL SPRAY NEEDED FOR ALLERGIES. [employer] FILLED: 05-27-18 LEVOTHYROXINE 25 MCG DAILY #30 05-27-18 LEVOTHYROXINE 200MCG DAILY #30 04-26-18 METFORMIN 1000MG BID #180 12-31-17 LISINOPRIL 40MG DAILY #90 (ALSO FILED 04-26-18 BUT NOT PICKED UP) 03-22-18 PRAVASTATIN 20MG DAILY #30
--- NOTE | 2018-09-16 11:43 | Discharge Summary ---
Diagnosis/Chief Complaint Date of Admission Sep 13, 2018 at 17:20 Date of Discharge 09/16/2018 Admission Diagnosis Admission Diagnosis Sepsis UTI EC Fistula Chronic Morbid Obesity TPN Discharge Diagnosis See Above Discharge Summary-Simple/Stand Consultations Dr Solares, General Surgery Discharge Physical Examination Allergies: Coded Allergies: linezolid (Verified Allergy, Severe, swelling to tongue, skin rash, 09/13/18) Vitals & I&Os Vital Sign - Last 12Hours Date Time Temp Pulse Resp B/P (MAP) Pulse Ox O2 Delivery O2 Flow Rate FiO2 09/16/18 09:00 95 Room Air 09/16/18 08:00 98.1 71 20 135/87 (103) Intake and Output 09/16/18 00:00 Intake Total 1165 ml Output Total 1250 ml Balance -85 ml General Appearance: Alert, Oriented X3, Cooperative, No Acute Distress HEENT: Mucous Memb Moist/Rennert Respiratory: Clear to Auscultation, Normal Air Movement Cardiovascular: Regular Rate, No Murmurs Abdominal: Soft, Other (Large EC Fistula present at midline at site of hernia repair) Extremities: No Edema, No Tenderness/Swelling Neuro: Normal Gait, Strength at 5/5 X4 Ext, Cranial Nerves 3-12 NL Psych/Mental Status: Mental Status NL, Mood NL Hospital Course Was the Problem List Reviewed?: Yes See final discharge diagnosis. 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 Repeat urine cul ture was done and return susceptible to rocephin. Will set up outpatient administration vs family administration. Patient feels at baseline and ready to go home. Following with [facility] for future fistula repair. Discharge Condition at discharge stable Instructions to patient/family Please see electronic discharge instructions given to patient. Discharge Medications Reviewed and agree with Discharge Medication list on patient's Discharge Instruction sheet Clinical Quality Measures DVT/VTE Risk/Contraindication: Risk Factor Score Per Nursin RFS Level Per Nursing on Admit: 4+=Very High Copy Copies To 1: ERIC SCOTT MD, HOLLY R MD Sep 16, 2018 11:43
[2018-09-16] MEDS ORDERED: CFTR1V IJ (11:48)
--- NOTE | 2018-09-16 11:51 | Discharge Instructions ---
Discharge [facility] Discharge Medications New, Converted or Re-Newed RX: RX on Chart New Medications: Ceftriaxone Sodium (Ceftriaxone) 1 Gm Vial 1 GM IJ DAILY, #6 VIAL Continued Medications: Fluticasone Propionate (Flonase Allergy Relief) 9.9 Ml Black.susp 2 SPRAY NS DAILY PRN for ALLERGIES, EACH Levothyroxine Sodium (Levothyroxine Sodium) 25 Mcg Tablet 25 MCG PO DAILY, TAB LAST FILLED #30 05-27-18 Levothyroxine Sodium (Levothyroxine Sodium) 200 Mcg Tablet 200 MCG PO DAILY, TAB LAST FILLED #30 05-27-18 Discontinued Medications: Lisinopril (Lisinopril) 40 Mg Tablet 40 MG PO DAILY, TAB LAST FILLED #90 12-31-17 Metformin HCl (Metformin HCl) 1,000 Mg Tablet 1000 MG PO BID, TAB LAST FILLED #180 04-26-18 Pravastatin Sodium (Pravastatin Sodium) 40 Mg Tablet 40 MG PO DAILY, TAB LAST FILLED #30 03-22-18 Patient Instructions Goal/Follow Up Appt: F/u with Sabiha Dickerson on September 19 @ 840 AM Patient Instructions: - It is important that you complete your antibiotics Activity & Diet Discharge Diet: Other Diet (NPO on TPN) Activity as Tolerated: Yes Copy Copies To 1: ERIC SCOTT MD, HOLLY R MD Sep 16, 2018 11:51
--- NOTE | 2018-09-16 14:00 | NUR ---
Important Message from Medicare presented, reviewed, signed and placed in patient chart. Patient voiced no intention to appeal and deny any needs or further questions at this time.
--- NOTE | 2018-09-16 15:31 | NUR ---
Responded to call light: pt requested assistance with transfer back to her bed and requested fresh ice water. I provided the pt with ice water and relayed pt's message to the PHYSICAL MEDICINE TEACHERVirginia, whom I observed responding respectfully and immediately to pt's request.
[2018-09-16 15:55] VITALS: BP 114/76
--- NOTE | 2018-09-16 16:11 | NUR ---
CM/SS, respond to consult for home infusion vs patient to [facility] daily for IV push. Patient well known to physician underwriter for home TPN current through [facility]. Patient new care plan includes Ceftriaxone daily injection, #6 vials. Plan is that daughter will receive instruction this evening of how to administer. If she is capable and agrees to perform, home infusion will be added to TPN through already established services. Otherwise, patient will go to [facility] daily for duration of this short term Rx order. Followup tomorrow.
[2018-09-16] MEDS: cefTRIAXone FOR IV USE 1,000 MG in WATER (STERILE) FOR INJECTION 10 ML IV SCH (18:09)
[2018-09-16 18:30] VITALS: BP 114/76
[2018-09-17] MEDS ORDERED: CFTR1V IJ (10:57)
--- NOTE | 2018-09-17 13:05 | NUR ---
CM/SS, finalized arrangements for patient home infusion, Rocephin, x 5 days. HOME INFUSION. Patient is established with [facility], [place], for TPN, longstanding. Confirmed Rx orders received by them today for the above Rx x 5 vials. Daughter was educated/instructed about administration by hospital staff. Updated Dr. Choudhary this a.[email or web address]
== END 2018-09-16 18:30 | disposition home or self-care (01) | DRG 872 ==
LOC: EDUNIT# 16:13 → ER 16:14 → ICU 17:20 → 4TH 09-14 13:00
PROVIDERS: ADMIT Internal Medicine; ATTEND Internal Medicine
DX: A41.51 Sepsis due to Escherichia coli [E. coli] (principal); N30.00 Acute cystitis without hematuria; K63.2 Fistula of intestine; E46 Unspecified protein-calorie malnutrition; R53.1 Weakness; I10 Essential (primary) hypertension; E03.9 Hypothyroidism, unspecified; M19.91 Primary osteoarthritis, unspecified site; Z16.11 Resistance to penicillins
CPT/HCPCS: 36415; 80053; 81000; 82962; 83605; 83735; 84100; 84134; 84478; 85025; 85610; 85730; 87040; 87077; 87088; 87186; 96365

== ENCOUNTER 2018-10-03 12:55 | Outpatient (RCR) | payer MEDICARE ==
[2018-07-18 16:25] VITALS: BP 104/64
[2018-07-25 12:55] VITALS: BP 117/67
[2018-08-01 11:23] LABS: BASOPHILS # (AUTO) 0.1 10^3/uL (0.0-0.1); BASOPHILS % (AUTO) 1 % (0-10); EOSINOPHILS # (AUTO) 0.3 10^3/uL (0.0-0.3); EOSINOPHILS % (AUTO) 3 % (0-10); HEMATOCRIT 41 % (35-52); HEMOGLOBIN 13.3 G/DL (11.5-16.0); LYMPHOCYTES # (AUTO) 2.9 X 10^3 (1.0-4.0); LYMPHOCYTES % (AUTO) 31 % (12-44); MEAN CORPUSCULAR HEMOGLOBIN 30 PG (25-34); MEAN CORPUSCULAR HGB CONC 33 G/DL (32-36); MEAN CORPUSCULAR VOLUME 91 FL (80-99); MEAN PLATELET VOLUME 10.3 FL (7.4-10.4); MONOCYTES # (AUTO) 1.4 X 10^3 (0.0-1.0); MONOCYTES % (AUTO) 15 % (0-12); NEUTROPHILS # (AUTO) 4.6 X 10^3 (1.8-7.8); NEUTROPHILS % (AUTO) 50 % (42-75); PLATELET COUNT 571 10^3/uL (130-400); RED CELL DISTRIBUTION WIDTH 14.9 % (10.0-14.5); WHITE BLOOD COUNT 9.3 10^3/uL (4.3-11.0)
[2018-08-01 11:41] LABS: ALANINE AMINOTRANSFERASE 61 U/L (0-55); ALBUMIN 3.3 GM/DL (3.2-4.5); ALKALINE PHOSPHATASE 137 U/L (40-136); BILIRUBIN,TOTAL 0.9 MG/DL (0.1-1.0); BUN/CREATININE RATIO 31; CALCIUM 9.3 MG/DL (8.5-10.1); CARBON DIOXIDE 27 MMOL/L (21-32); CHLORIDE 95 MMOL/L (98-107); CREATININE SERUM 0.85 MG/DL (0.60-1.30); GFR ESTIMATED > 60; GLUCOSE 117 MG/DL (70-105); MAGNESIUM 1.9 MG/DL (1.8-2.4); PHOSPHORUS 3.8 MG/DL (2.3-4.7); POTASSIUM 3.6 MMOL/L (3.6-5.0); SODIUM 135 MMOL/L (135-145); TOTAL PROTEIN 8.3 GM/DL (6.4-8.2)
[2018-08-01 14:15] VITALS: BP 100/66
[2018-08-08 11:01] VITALS: BP 94/60
[2018-08-08 11:06] LABS: BASOPHILS % (AUTO) 1 % (0-10); EOSINOPHILS # (AUTO) 0.4 10^3/uL (0.0-0.3); EOSINOPHILS % (AUTO) 4 % (0-10); HEMATOCRIT 40 % (35-52); LYMPHOCYTES # (AUTO) 2.8 X 10^3 (1.0-4.0); LYMPHOCYTES % (AUTO) 34 % (12-44); MEAN CORPUSCULAR HEMOGLOBIN 29 PG (25-34); MEAN CORPUSCULAR HGB CONC 32 G/DL (32-36); MEAN CORPUSCULAR VOLUME 91 FL (80-99); MEAN PLATELET VOLUME 10.2 FL (7.4-10.4); MONOCYTES # (AUTO) 1.3 X 10^3 (0.0-1.0); MONOCYTES % (AUTO) 15 % (0-12); NEUTROPHILS # (AUTO) 3.9 X 10^3 (1.8-7.8); NEUTROPHILS % (AUTO) 46 % (42-75); PLATELET COUNT 492 10^3/uL (130-400); RED CELL DISTRIBUTION WIDTH 15.3 % (10.0-14.5); WHITE BLOOD COUNT 8.4 10^3/uL (4.3-11.0)
[2018-08-08 11:34] LABS: CHLORIDE 95 MMOL/L (98-107); POTASSIUM 3.6 MMOL/L (3.6-5.0); SODIUM 136 MMOL/L (135-145)
[2018-08-08 12:12] LABS: ALANINE AMINOTRANSFERASE 51 U/L (0-55); ALBUMIN 3.2 GM/DL (3.2-4.5); ALKALINE PHOSPHATASE 126 U/L (40-136); BILIRUBIN,TOTAL 1.1 MG/DL (0.1-1.0); BUN/CREATININE RATIO 29; CALCIUM 9.2 MG/DL (8.5-10.1); CARBON DIOXIDE 26 MMOL/L (21-32); CREATININE SERUM 0.91 MG/DL (0.60-1.30); GFR ESTIMATED > 60; GLUCOSE 124 MG/DL (70-105); PHOSPHORUS 3.6 MG/DL (2.3-4.7); TOTAL PROTEIN 8.4 GM/DL (6.4-8.2)
[2018-08-15 10:50] VITALS: BP 97/59
[2018-08-15 14:09] LABS: BASOPHILS % (AUTO) 0 % (0-10); EOSINOPHILS # (AUTO) 0.5 10^3/uL (0.0-0.3); EOSINOPHILS % (AUTO) 6 % (0-10); HEMATOCRIT 40 % (35-52); LYMPHOCYTES # (AUTO) 3.5 X 10^3 (1.0-4.0); LYMPHOCYTES % (AUTO) 39 % (12-44); MEAN CORPUSCULAR HEMOGLOBIN 30 PG (25-34); MEAN CORPUSCULAR HGB CONC 32 G/DL (32-36); MEAN CORPUSCULAR VOLUME 92 FL (80-99); MEAN PLATELET VOLUME 10.9 FL (7.4-10.4); MONOCYTES # (AUTO) 1.2 X 10^3 (0.0-1.0); MONOCYTES % (AUTO) 13 % (0-12); NEUTROPHILS # (AUTO) 3.9 X 10^3 (1.8-7.8); NEUTROPHILS % (AUTO) 43 % (42-75); PLATELET COUNT 554 10^3/uL (130-400); RED CELL DISTRIBUTION WIDTH 16.4 % (10.0-14.5); WHITE BLOOD COUNT 9.1 10^3/uL (4.3-11.0)
[2018-08-15 14:24] LABS: ALANINE AMINOTRANSFERASE 48 U/L (0-55); ALBUMIN 3.2 GM/DL (3.2-4.5); ALKALINE PHOSPHATASE 122 U/L (40-136); BILIRUBIN,TOTAL 1.3 MG/DL (0.1-1.0); BUN/CREATININE RATIO 29; CALCIUM 9.1 MG/DL (8.5-10.1); CARBON DIOXIDE 27 MMOL/L (21-32); CHLORIDE 98 MMOL/L (98-107); CREATININE SERUM 0.91 MG/DL (0.60-1.30); GFR ESTIMATED > 60; GLUCOSE 109 MG/DL (70-105); MAGNESIUM 1.9 MG/DL (1.8-2.4); PHOSPHORUS 3.7 MG/DL (2.3-4.7); POTASSIUM 3.6 MMOL/L (3.6-5.0); SODIUM 136 MMOL/L (135-145); TOTAL PROTEIN 8.5 GM/DL (6.4-8.2)
[2018-08-22 14:15] VITALS: BP 91/65
[2018-08-22 14:31] LABS: BASOPHILS % (AUTO) 0 % (0-10); EOSINOPHILS # (AUTO) 0.3 10^3/uL (0.0-0.3); EOSINOPHILS % (AUTO) 3 % (0-10); HEMATOCRIT 39 % (35-52); HEMOGLOBIN 12.9 G/DL (11.5-16.0); LYMPHOCYTES # (AUTO) 3.6 X 10^3 (1.0-4.0); LYMPHOCYTES % (AUTO) 35 % (12-44); MEAN CORPUSCULAR HEMOGLOBIN 30 PG (25-34); MEAN CORPUSCULAR HGB CONC 33 G/DL (32-36); MEAN CORPUSCULAR VOLUME 92 FL (80-99); MEAN PLATELET VOLUME 10.6 FL (7.4-10.4); MONOCYTES # (AUTO) 1.3 X 10^3 (0.0-1.0); MONOCYTES % (AUTO) 13 % (0-12); NEUTROPHILS # (AUTO) 4.9 X 10^3 (1.8-7.8); NEUTROPHILS % (AUTO) 49 % (42-75); PLATELET COUNT 464 10^3/uL (130-400); RED CELL DISTRIBUTION WIDTH 16.7 % (10.0-14.5); WHITE BLOOD COUNT 10.1 10^3/uL (4.3-11.0)
[2018-08-22 14:49] LABS: ALBUMIN 3.2 GM/DL (3.2-4.5); BILIRUBIN,TOTAL 1.7 MG/DL (0.1-1.0); CALCIUM 9.2 MG/DL (8.5-10.1); CREATININE SERUM 1.06 MG/DL (0.60-1.30); MAGNESIUM 1.8 MG/DL (1.8-2.4); PHOSPHORUS 3.3 MG/DL (2.3-4.7); POTASSIUM 3.5 MMOL/L (3.6-5.0); TOTAL PROTEIN 8.7 GM/DL (6.4-8.2)
[2018-08-29 12:55] VITALS: BP 83/56
[2018-08-29 12:57] LABS: BASOPHILS # (AUTO) 0.1 10^3/uL (0.0-0.1); BASOPHILS % (AUTO) 1 % (0-10); EOSINOPHILS # (AUTO) 0.3 10^3/uL (0.0-0.3); EOSINOPHILS % (AUTO) 3 % (0-10); HEMATOCRIT 37 % (35-52); HEMOGLOBIN 12.6 G/DL (11.5-16.0); LYMPHOCYTES # (AUTO) 3.7 X 10^3 (1.0-4.0); LYMPHOCYTES % (AUTO) 42 % (12-44); MEAN CORPUSCULAR HEMOGLOBIN 30 PG (25-34); MEAN CORPUSCULAR HGB CONC 34 G/DL (32-36); MEAN CORPUSCULAR VOLUME 89 FL (80-99); MEAN PLATELET VOLUME 10.3 FL (7.4-10.4); MONOCYTES # (AUTO) 1.1 X 10^3 (0.0-1.0); MONOCYTES % (AUTO) 13 % (0-12); NEUTROPHILS # (AUTO) 3.7 X 10^3 (1.8-7.8); NEUTROPHILS % (AUTO) 42 % (42-75); PLATELET COUNT 459 10^3/uL (130-400); RED CELL DISTRIBUTION WIDTH 17.5 % (10.0-14.5); WHITE BLOOD COUNT 8.8 10^3/uL (4.3-11.0)
[2018-08-29 13:18] LABS: ALBUMIN 3.1 GM/DL (3.2-4.5); BILIRUBIN,TOTAL 1.6 MG/DL (0.1-1.0); CALCIUM 9.1 MG/DL (8.5-10.1); CREATININE SERUM 1.07 MG/DL (0.60-1.30); MAGNESIUM 1.9 MG/DL (1.8-2.4); PHOSPHORUS 3.5 MG/DL (2.3-4.7); TOTAL PROTEIN 8.4 GM/DL (6.4-8.2)
[2018-09-05 11:23] VITALS: BP 80/60
[2018-09-05 11:32] LABS: BASOPHILS % (AUTO) 1 % (0-10); EOSINOPHILS # (AUTO) 0.4 10^3/uL (0.0-0.3); EOSINOPHILS % (AUTO) 5 % (0-10); HEMATOCRIT 38 % (35-52); HEMOGLOBIN 12.6 G/DL (11.5-16.0); LYMPHOCYTES # (AUTO) 3.4 X 10^3 (1.0-4.0); LYMPHOCYTES % (AUTO) 40 % (12-44); MEAN CORPUSCULAR HEMOGLOBIN 30 PG (25-34); MEAN CORPUSCULAR HGB CONC 33 G/DL (32-36); MEAN CORPUSCULAR VOLUME 90 FL (80-99); MEAN PLATELET VOLUME 10.1 FL (7.4-10.4); MONOCYTES # (AUTO) 0.9 X 10^3 (0.0-1.0); MONOCYTES % (AUTO) 11 % (0-12); NEUTROPHILS # (AUTO) 3.8 X 10^3 (1.8-7.8); NEUTROPHILS % (AUTO) 44 % (42-75); PLATELET COUNT 487 10^3/uL (130-400); RED CELL DISTRIBUTION WIDTH 18.5 % (10.0-14.5); WHITE BLOOD COUNT 8.5 10^3/uL (4.3-11.0)
[2018-09-05 11:50] LABS: ALBUMIN 3.1 GM/DL (3.2-4.5); BILIRUBIN,TOTAL 1.5 MG/DL (0.1-1.0); CALCIUM 9.1 MG/DL (8.5-10.1); CREATININE SERUM 1.06 MG/DL (0.60-1.30); MAGNESIUM 1.9 MG/DL (1.8-2.4); PHOSPHORUS 3.6 MG/DL (2.3-4.7); TOTAL PROTEIN 8.7 GM/DL (6.4-8.2)
--- NOTE | 2018-09-05 13:53 | NUR ---
Saw Straightener support offered through active listening and compassionate presence.
[2018-09-12 12:25] VITALS: BP 90/61
[2018-09-12 12:36] LABS: BASOPHILS # (AUTO) 0.1 10^3/uL (0.0-0.1); BASOPHILS % (AUTO) 1 % (0-10); EOSINOPHILS # (AUTO) 0.3 10^3/uL (0.0-0.3); EOSINOPHILS % (AUTO) 3 % (0-10); HEMATOCRIT 38 % (35-52); HEMOGLOBIN 12.4 G/DL (11.5-16.0); LYMPHOCYTES # (AUTO) 3.5 X 10^3 (1.0-4.0); LYMPHOCYTES % (AUTO) 40 % (12-44); MEAN CORPUSCULAR HEMOGLOBIN 30 PG (25-34); MEAN CORPUSCULAR HGB CONC 33 G/DL (32-36); MEAN CORPUSCULAR VOLUME 93 FL (80-99); MONOCYTES % (AUTO) 12 % (0-12); NEUTROPHILS % (AUTO) 45 % (42-75); PLATELET COUNT 518 10^3/uL (130-400); RED CELL DISTRIBUTION WIDTH 19.5 % (10.0-14.5); WHITE BLOOD COUNT 8.8 10^3/uL (4.3-11.0)
[2018-09-12 13:04] LABS: ALBUMIN 3.1 GM/DL (3.2-4.5); BILIRUBIN,TOTAL 1.7 MG/DL (0.1-1.0); CALCIUM 9.2 MG/DL (8.5-10.1); CREATININE SERUM 1.11 MG/DL (0.60-1.30); MAGNESIUM 1.8 MG/DL (1.8-2.4); PHOSPHORUS 3.5 MG/DL (2.3-4.7); TOTAL PROTEIN 8.8 GM/DL (6.4-8.2)
[2018-09-19 09:40] VITALS: BP 106/67
[2018-09-19 10:21] LABS: BASOPHILS % (AUTO) 1 % (0-10); EOSINOPHILS # (AUTO) 0.4 10^3/uL (0.0-0.3); EOSINOPHILS % (AUTO) 5 % (0-10); HEMATOCRIT 38 % (35-52); HEMOGLOBIN 12.4 G/DL (11.5-16.0); LYMPHOCYTES # (AUTO) 3.7 X 10^3 (1.0-4.0); LYMPHOCYTES % (AUTO) 51 % (12-44); MEAN CORPUSCULAR HEMOGLOBIN 31 PG (25-34); MEAN CORPUSCULAR HGB CONC 32 G/DL (32-36); MEAN CORPUSCULAR VOLUME 94 FL (80-99); MEAN PLATELET VOLUME 10.7 FL (7.4-10.4); MONOCYTES # (AUTO) 0.6 X 10^3 (0.0-1.0); MONOCYTES % (AUTO) 8 % (0-12); NEUTROPHILS # (AUTO) 2.6 X 10^3 (1.8-7.8); NEUTROPHILS % (AUTO) 36 % (42-75); PLATELET COUNT 511 10^3/uL (130-400); RED CELL DISTRIBUTION WIDTH 20.6 % (10.0-14.5); WHITE BLOOD COUNT 7.3 10^3/uL (4.3-11.0)
[2018-09-19 10:48] LABS: ALBUMIN 3.1 GM/DL (3.2-4.5); CALCIUM 9.1 MG/DL (8.5-10.1); CREATININE SERUM 1.04 MG/DL (0.60-1.30); MAGNESIUM 1.9 MG/DL (1.8-2.4); PHOSPHORUS 3.8 MG/DL (2.3-4.7); POTASSIUM 4.3 MMOL/L (3.6-5.0); TOTAL PROTEIN 8.8 GM/DL (6.4-8.2)
[2018-09-26 14:20] VITALS: BP 94/49
[2018-09-26 14:46] LABS: BASOPHILS # (AUTO) 0.1 10^3/uL (0.0-0.1); BASOPHILS % (AUTO) 1 % (0-10); EOSINOPHILS # (AUTO) 0.3 10^3/uL (0.0-0.3); EOSINOPHILS % (AUTO) 4 % (0-10); HEMATOCRIT 36 % (35-52); HEMOGLOBIN 11.7 G/DL (11.5-16.0); LYMPHOCYTES # (AUTO) 3.4 X 10^3 (1.0-4.0); LYMPHOCYTES % (AUTO) 44 % (12-44); MEAN CORPUSCULAR HEMOGLOBIN 31 PG (25-34); MEAN CORPUSCULAR HGB CONC 33 G/DL (32-36); MEAN CORPUSCULAR VOLUME 95 FL (80-99); MEAN PLATELET VOLUME 10.9 FL (7.4-10.4); MONOCYTES # (AUTO) 0.7 X 10^3 (0.0-1.0); MONOCYTES % (AUTO) 9 % (0-12); NEUTROPHILS # (AUTO) 3.2 X 10^3 (1.8-7.8); NEUTROPHILS % (AUTO) 42 % (42-75); PLATELET COUNT 425 10^3/uL (130-400); RED CELL DISTRIBUTION WIDTH 20.7 % (10.0-14.5); WHITE BLOOD COUNT 7.7 10^3/uL (4.3-11.0)
[2018-09-26 15:06] LABS: ALBUMIN 3.2 GM/DL (3.2-4.5); BILIRUBIN,TOTAL 1.5 MG/DL (0.1-1.0); CALCIUM 9.2 MG/DL (8.5-10.1); MAGNESIUM 1.6 MG/DL (1.8-2.4); PHOSPHORUS 3.2 MG/DL (2.3-4.7); POTASSIUM 3.5 MMOL/L (3.6-5.0); TOTAL PROTEIN 8.6 GM/DL (6.4-8.2)
[2018-09-26 15:33] LABS: CREATININE SERUM 1.04 MG/DL (0.60-1.30)
[~2018-10-03] VITALS: Ht 160 cm; Wt 105.2 kg
[~2018-10-03 12:55] MED LIST changes: +CFTR1V IJ; +FLUT9.9S NS; +LEVO200T6 PO; +LEVO25TA5 PO; +LISI40TA PO; +METF-399 PO; +PRAV40TA2 PO; -[UNRECOGNIZED DRUG - NUTRITION] PO SCH
[2018-10-03 13:55] LABS: BASOPHILS % (AUTO) 1 % (0-10); EOSINOPHILS # (AUTO) 0.1 10^3/uL (0.0-0.3); EOSINOPHILS % (AUTO) 2 % (0-10); HEMATOCRIT 38 % (35-52); HEMOGLOBIN 12.4 G/DL (11.5-16.0); LYMPHOCYTES # (AUTO) 1.9 X 10^3 (1.0-4.0); LYMPHOCYTES % (AUTO) 33 % (12-44); MEAN CORPUSCULAR HEMOGLOBIN 32 PG (25-34); MEAN CORPUSCULAR HGB CONC 33 G/DL (32-36); MEAN CORPUSCULAR VOLUME 96 FL (80-99); MEAN PLATELET VOLUME 11.9 FL (7.4-10.4); MONOCYTES # (AUTO) 0.7 X 10^3 (0.0-1.0); MONOCYTES % (AUTO) 12 % (0-12); NEUTROPHILS % (AUTO) 52 % (42-75); PLATELET COUNT 276 10^3/uL (130-400); RED CELL DISTRIBUTION WIDTH 20.9 % (10.0-14.5); WHITE BLOOD COUNT 5.8 10^3/uL (4.3-11.0)
[2018-10-03 13:56] VITALS: BP 90/50
[2018-10-03 14:07] LABS: ALBUMIN 3.2 GM/DL (3.2-4.5); BILIRUBIN,TOTAL 1.9 MG/DL (0.1-1.0); CALCIUM 9.1 MG/DL (8.5-10.1); CREATININE SERUM 1.17 MG/DL (0.60-1.30); MAGNESIUM 1.7 MG/DL (1.8-2.4); POTASSIUM 3.9 MMOL/L (3.6-5.0); TOTAL PROTEIN 8.7 GM/DL (6.4-8.2)
[2018-10-09] MEDS ORDERED: ACET-93 PO (09:34)
== END 2018-10-16 | disposition home or self-care (01) ==
LOC: SDC 12:55
PROVIDERS: ATTEND Surgery
DX: Z79.2 Long term (current) use of antibiotics (principal)
CPT/HCPCS: 36415; 80053; 83735; 84100; 85025; 99211

== ENCOUNTER 2018-10-08 10:41 | Inpatient (IN) | payer MEDICARE ==
[~2018-10-08] VITALS: Ht 160 cm; Wt 128.2 kg
[2018-10-08] VITALS (11 sets, daily range): BP systolic 83–117; BP diastolic 42–89
--- NOTE | 2018-10-08 11:04 | NUR ---
LAB HERE TO DRAW 2ND BLOOD CULTURE
[2018-10-08 11:09] LABS: BASOPHILS # (AUTO) 0.1 10^3/uL (0.0-0.1); BASOPHILS % (AUTO) 1 % (0-10); EOSINOPHILS % (AUTO) 0 % (0-10); HEMATOCRIT 36 % (35-52); HEMOGLOBIN 11.8 G/DL (11.5-16.0); LYMPHOCYTES # (AUTO) 1.9 X 10^3 (1.0-4.0); LYMPHOCYTES % (AUTO) 18 % (12-44); MEAN CORPUSCULAR HEMOGLOBIN 31 PG (25-34); MEAN CORPUSCULAR HGB CONC 33 G/DL (32-36); MEAN CORPUSCULAR VOLUME 95 FL (80-99); MEAN PLATELET VOLUME 11.7 FL (7.4-10.4); MONOCYTES % (AUTO) 9 % (0-12); NEUTROPHILS # (AUTO) 7.7 X 10^3 (1.8-7.8); NEUTROPHILS % (AUTO) 72 % (42-75); PLATELET COUNT 213 10^3/uL (130-400); RED CELL DISTRIBUTION WIDTH 20.5 % (10.0-14.5); WHITE BLOOD COUNT 10.7 10^3/uL (4.3-11.0)
--- NOTE | 2018-10-08 11:19 | NUR ---
EMS FLUIDS IN
--- OUTSIDE RECORDS SUMMARY | 2018-10-08 11:25 | XMS REPORT | Encounter Summary ---
Author [facility] Address Unknown Phone Unavailable Care Team Providers Care Home Weatherizing Worker Name Role Phone No Pcp, Na PCP Unavailable Reason for Visit * Reason Comments Post Operative Visit Encounter Details Care Team Description Date Type Department Helen Lan MD [address] [place] [address] BMI 40.0-44.9, adult (HCC) (Primary Dx); Infected hernioplasty mesh, initial encounter ([facility]) 05/21/2018 Office Visit [facility] [address] [place] [address] Social History Date Tobacco Use Types Packs/Day Years Used Never Smoker Smokeless Tobacco: Never Used Drinks/Week oz/Week Comments Alcohol Use No Alcohol Habits Answer Date Recorded How [...] of this encounter Last Filed Vital Signs Reading Time Taken Comments Vital Sign 118/77 05/21/2018 9:38 AM RADARMAN Blood Pressure 122 05/21/2018 9:38 AM RADARMAN Pulse 36.6 C (97.8 F) 05/21/2018 9:38 AM RADARMAN Temperature 18 05/21/2018 9:38 AM RADARMAN Respiratory Rate - - Oxygen Saturation - - Inhaled Oxygen Concentration 113.4 kg (250 lb) 05/21/2018 9:38 AM RADARMAN Weight 160 cm (5' 2.99") 05/21/2018 9:38 AM RADARMAN Height 44.3 05/21/2018 9:38 AM RADARMAN Body Mass Index documented in this encounter Functional Status Date [...] Helen Lan MD - 05/21/2018 9:30 AM RADARMAN Date of Service: 05/21/2018 Subjective: Lucrecia Schmitt is a 62 y.o. female. History of Present Illness 62-year-old female history of diabetes and morbid obesity status post ventral he rnia repair x6. Patient has exposed synthetic mesh at the lower midline incisio n which is chronically infected. She returns to clinic today to discuss wound c are and possible surgical intervention. She was recently discharged from and has completed her course of antibiotics. Patient was instructed to apply Dakin 's soaked gauze to exposed mesh wound twice daily. The patient states that she has not been following her wound care instructions and has been using dry gauze only. She denies systemic signs of infection such as erythema around wound, inc reasing pain, fevers/chills, changes in bowel function. The patient's home heal th nurse became concerned with the odor of the exposed mesh and referred the pat ient to clinic for an exam. Review of Systems Patient denies fatigue, fever/chills, weight gain/loss, changes in vision, dizzi ness, difficulty with speech, chest pain, cough/wheeze, shortness of breath, ronak st pressure, abdominal pain, nausea/vomiting, bloody stool, melena, constipation /diarrhea, difficulty urinating, swelling of extremities, rashes, changes in moo d. Objective: atorvastatin (LIPITOR) 40 mg tablet Take 40 mg by mouth daily. levothyroxine (SYNTHROID) 200 mcg tablet Take 200 mcg by mouth daily 30 sloane darron before breakfast. metFORMIN (GLUCOPHAGE) 1,000 mg tablet Take 1,000 mg by mouth twice daily wi th meals. sodium hypochlorite (DAKIN'S 1/2 STRENGTH) 0.25 % topical solution Apply to pically to affected area twice daily. Vitals: 05/21/18 [...] exposed synthetic mesh, no erythema, no purulence noted, mildly malodorous NEURO: Grossly intact EXT: no edema Assessment and Plan: 62-year-old female history of diabetes and morbid obesity status post ventral he rnia repair x6, now with exposed mesh. -No signs of systemic or local tissue infection -Exposed mesh colonized,chronically infected, odor of mesh normal under the circ umstances -Patient instructed to follow wound care instructions and use half-strength Daki n's soaked gauze packing twice daily -Warning signs of systemic infection including fever/chills, increasing pain, ch anges in bowel function discussed with patient -Patient instructed to continue her weight loss regimen as mesh excision with he rnia repair at this point would be high risk with prohibitively high likelihood of recurrence -Patient verbalized understanding and will call clinic after further weight loss to schedule elective repair/excision of mesh with Dr. Lan at a later date Edil Gill MD ATTESTATION I personally observed the resident performing the E/M, discussed case with resid ent, and concur with resident documentation of history, physical assessment and treatment plan unless otherwise noted. Staff name: Helen Lan MD Date: 05/22/2018 RMAN documented in this encounter Plan of Treatment Not on filedocumented as of this encounter Visit Diagnoses Diagnosis BMI 40.0-44.9, adult (HCC) - Primary Body Mass Index 40.0-44.9, adult Infected hernioplasty mesh, initial encounter (HCC) documented in this encounter
--- OUTSIDE RECORDS SUMMARY | 2018-10-08 11:25 | XMS REPORT | Encounter Summary ---
Author Author [facility] Organization [facility] Address Unknown Phone Unavailable Care Team Providers Care Practical Nursing Instructor Name Role Phone Mamie Schuster MD PCP Reason for Visit * Reason Comments Wound Check Encounter Details Care Team Description Date Type Department Niles Barney MD [address] [facility] [place] [address] 06/26/2018 Emergency [facility] [address] [place], [place] [id number] Social History Date Tobacco Use Types Packs/Day [...] Signs Reading Time Taken Comments Vital Sign 117/72 06/26/2018 9:00 PM CDT Blood Pressure - - Pulse 36.5 C (97.7 F) 06/26/2018 12:22 PM CDT Temperature - - Respiratory Rate 97% 06/26/2018 9:00 PM CDT Oxygen Saturation - - Inhaled Oxygen Concentration 108 kg (238 lb) 06/26/2018 12:22 PM CDT Weight 160 cm (5' 3") 06/26/2018 12:22 PM CDT Height 42.16 06/26/2018 12:22 PM CDT Body Mass Index documented in this encounter [...] not be seen, found, or removed. W atch for signs of infection (redness, warmth, swelling, [...] instructed. If you do not have a [facility] physician, you need to establish care with [...] ED staff unable to find wound manager analytical as storage closet was locked. Called surge ry to inform us that they only have smaller ostomy bags and no wound managers av ailable. Wound manager analytical obtained and applied by surgery team and [...] PHYSICIAN Acute Care Surgery Consult Patient: Lucrecia Schmitt, [id number] Admission Date: 06/26/2018, LOS: 0 days Admission [...] PLAN: - Local wound management, wound manager analytical on top of wound. Local skin care to avoi d skin excoriation. Patient would like to follow up with her local wound doctor for follow up and declined to see a wound/ostomy nurse at - Follow up with Dr. Lan in clinic - please call [phone] to make an appoi ntment - Optimize nutrition with high protein diet - Document fistula output closely to avoid risks of dehydration or malnutrition. If output 1.5 L per day please call PCP Discussed plan of care with staff surgeon, Dr. Sutton, who directed plan of care HPI: Lucrecia Schmitt is a 62 y.o. female w/ diabetes [...] 4:50 PM. Marcie Henriquez MD Team Pager: [phone] Associated attestation - Julio Cesar Sutton MD - 06/27/2018 8:50 PM CDT I personally interviewed and examined the patient. I have reviewed the history, physical, impression and plan as outlined by the resident and concur unless oth erwise noted. My impression and plan, which is unrelated to any procedure which may have been performed is: Ms. Schmitt is a 62F with a hx significant [...] Will give her a wo und manager analytical and provide education on protecting her skin. [...] Donald RN - 06/26/2018 10:10 PM CDT senior vice president at the bedside to place wound manager analytical. Pt tolerated well. * Dahiana Donald RN [...] MD - 06/26/2018 1:56 PM CDT Lucrecia Schmitt is a 62 y.o. female. Chief Complaint: [...] currently on antibiotics. She visit with her [facility] care physician in [facility] this morning who was concerned about pos [...] History provided by: Patient and medical records geophysical laboratory director used: No Review of Systems: Review of [...] Disposition not entered Helen Lan MD [address] [facility] [address] Schedule an appointment as soon as possible for a visit Alternate number [phone] Wound Doctor Go to For continued wound care Mamie Schuster MD [address] [facility] [address] Call If output > 1.5L per day Medications: New Prescriptions No medications on file Procedure Notes: Procedures Attestation / Supervision: Ignacio Easley, ying scribing for and in the presence of Wilson Diego MD. Ignacio Cervantes Attestation / Supervision Note concerning Lucrecia Schmitt: IWilson MD, pe rsonally performed the services described in this documentation as scribed in my presence and it is both accurate and complete. Wilson Diego MD Attestation / Supervision Note concerning Lucrecia Schmitt: I personally performed th e portillo portions [...] in belonging bag with patient labels at [facility]. The bag(s) contain(s) the following: Clothing: shirt, [...] ABD/PELV W CONTRAST (06/26/2018 4:48 PM CDT) Specimen Impressions Performed At 1.No small bowel obstruction, [...] POC LACTATE (06/26/2018 2:13 PM CDT) Pathologist [facility] LACTIC ACID POC 1.2 0.5 - 2.0 MMOL/L MAIN LAB Specimen Performing Organization Address City/[facility] Phone Number MAIN LAB [address] [place] [address] * COMPREHENSIVE METABOLIC PANEL (06/26/2018 12:37 PM CDT) Pathologist [facility] Sodium 138 137 - 147 MMOL/L [facility] [...] >60 >60 mL/min [facility] Comment: [place] The eGFR is not validated for use in drug dosing adjustments.Continue to use estimated creatinine clearance per dosing reference text.Please contact the Clinical Pharmacist for questions. eGFR >60 >60 mL/min [facility] Comment: The eGFR is not validated for use in drug dosing adjustments.Continue to use estimated creatinine clearance per dosing reference text.Please contact the Clinical Pharmacist for questions. Specimen Blood Performing Organization Address City/State/Zipcode Phone Number [facility] [address] [place] [address] * CBC AND DIFF (06/26/2018 12:37 PM [...] Basophil Count Specimen Blood Performing Organization Address City/[facility]/Zipcode Phone Number [facility] [address] [place] [address] documented in this encounter Visit Diagnoses Diagnosis Wound drainage - Primary Open wound(s) (multiple) of unspecified site(s), without mention of complication documented in this encounter Administered Medications Action Date Dose Rate Site Medication Order MAR Action 06/26/2018 2:40 PM CDT 30 mL diatrizoate meglumine & sodium 66-10 % Given (-GASTROFAYE) oral solution 30 mL 30 mL, Oral, [...]
--- OUTSIDE RECORDS SUMMARY | 2018-10-08 11:25 | XMS REPORT | Clinical Summary ---
Author Author [facility] Organization [facility] Address Unknown Phone Unavailable Care Team Providers Care Oriental Medicine Practitioner Name Role Phone Mamie Schuster MD PCP Source Comments Some departments are not documenting in the electronic medical record. If you d o not see the information that you expected, contact Release of Information in [facility] Information Management department at [phone] for further assistan ce in locating additional records.[facility] Allergies No Known Allergies Medications End [...] Syncope 05/09/2018 Chronic abdominal wound infection 05/09/2018 Family History Medical History Relation Name Comments [...] travel history available. Last Filed Vital Signs Reading Time Taken Comments Vital Sign 117/72 06/26/2018 9:00 PM CDT Blood Pressure 122 05/21/2018 9:38 AM RESERVOIR ENGINEER Pulse 36.5 C (97.7 F) 06/26/2018 12:22 PM CDT Temperature 18 05/21/2018 9:38 AM RESERVOIR ENGINEER Respiratory Rate 97% 06/26/2018 9:00 PM CDT Oxygen Saturation - - Inhaled Oxygen Concentration 108 kg (238 lb) 06/26/2018 12:22 PM CDT Weight 160 cm (5' 3") 06/26/2018 12:22 PM CDT Height 42.16 06/26/2018 12:22 PM CDT Body Mass Index Plan of Treatment Health Maintenance Due Date Last Done Comments HEPATITIS C SCREENING 1955 PHYSICAL (COMPREHENSIVE) 08/22/1962 EXAM HIV SCREENING 08/22/1970 DTAP/TDAP VACCINES (1 - 08/22/1973 Tdap) CERVICAL CANCER SCREENING 08/22/1985 BREAST CANCER SCREENING 1995 COLORECTAL CANCER 08/22/2005 SCREENING SHINGLES RECOMBINANT 08/22/2005 VACCINE (1 of 2) INFLUENZA VACCINE 01/07/2019 Results Not on filefrom Last 3 Months Insurance Type Payer Benefit Subscriber ID Effective Phone Address Plan / Dates Group Medicare HUMANA MEDICARE HUMANA xxxxxxxxx 2018-P CHOICE PPO resent Advance Directives 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
[2018-10-08 11:26] LABS: INR 1.3 (0.8-1.4); PROTHROMBIN TIME PATIENT 16.4 SEC (12.2-14.7)
--- OUTSIDE RECORDS SUMMARY | 2018-10-08 11:26 | XMS REPORT | Encounter Summary ---
Author Author [facility] Organization [facility] Address Unknown Phone Unavailable Care Team Providers Care Retail Beauty Specialist Name Role Phone No Pcp, Na PCP Unavailable Encounter Details Care Team Description Date Type Department 05/08/2018 Hospital [facility] [address] [address] Social History Date Tobacco Use [...] 05/08/2018 Diagnosis unknown EXTERNAL IMAGING 2:35 PM FIELD MECHANIC/SITE LEAD documented in this encounter Results * GENERAL RAD CHEST EXTERNAL IMAGING (05/08/2018 2:35 PM FIELD MECHANIC/SITE LEAD) Specimen Narrative Performed At This order has been auto finalized and does not contain a result. documented in this encounter Visit Diagnoses Not on filedocumented in this encounter
--- OUTSIDE RECORDS SUMMARY | 2018-10-08 11:26 | XMS REPORT | Encounter Summary ---
Author Author [facility] Organization [facility] Address Unknown Phone Unavailable Care Team Providers Care Signal System Testing Maintainer Name Role Phone No Pcp, Na PCP Unavailable Reason for Visit * Auth/Cert Referred By Contact Referred To Contact Status Reason Specialty Diagnoses / Procedures Diagnoses Open abdominal wall wound Syncope abdominal wound, syncope Encounter Details Care Team Description Date Type Department Rachel Garcia MD [address] [place] [address] [phone] Edil Robles MD [address] [place] [address] [phone] Suzanna Gibson DO [address] [place] [address] [phone] Chronic abdominal wound infection 05/08/2018 [facility] 05/10/[address] [place] [address] Social History Date Tobacco Use Types Packs/Day [...] Signs Reading Time Taken Comments Vital Sign 125/59 05/10/2018 11:32 AM MODEL MAKER SCALE Blood Pressure 76 05/10/2018 11:32 AM MODEL MAKER [employer] Pulse 36.6 C (97.9 F) 05/10/2018 11:32 AM MODEL [employer] Temperature - - Respiratory Rate 98% 05/10/2018 11:32 AM MODEL MA[employer] Oxygen Saturation - - Inhaled Oxygen Concentration 118.6 kg (261 lb 6.4 oz) 05/08/2018 11:00 PM MODEL [employer] [employer] Weight 160 cm (5' 3") 05/08/2018 11:00 PM [employer] Height 46.3 05/08/2018 11:00 PM [employer] Body Mass Index documented in this encounter Functional Status Date of Assessment Functional Status Response 05/09/2018 Does the patient have a hearing impairment: Yes documented as of this encounter Discharge Summaries * Suzanna Gibson DO - 05/10/2018 12:51 PM MODEL [employer] Physician Discharge Summary Name: Lucrecia Tomas Date Of : 1955 Age: 62 years Admit date: 05/08/2018 Discharge date: 05/10/2018 Attending Physician: Suzanna Gibson DO Service: [facility] N- [id number] Physician Summary completed by: Suzanna Gibson DO Reason for hospitalization: Abdominal wound and exposed abdominal hernia mesh Significant PMH: 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 Brief Hospital Course: The patient was admitted and the following issues were a ddressed during this hospitalization: (with pertinent details). Mr. 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 Presented to in transfer after presented to the outside hospital with syncope. She was instructed to co me to for second surgical opinion of her abdominal mesh. Initially there was concern for infection and infectious disease was consulted. Surgery was also c onsulted. She was initially started on Zosyn and vancomycin on admission. After evaluatio n by infectious disease but these were discontinued and patient was monitored of f of antibiotics. Surgery consultation with recommendations to lose weight for BMI less than 40 prior to surgery. She was given the phone number for follow-up . Nutrition was consulted and patient was provided education. Wound team was a lso consulted for wound care recommendations and home health orders were updated . Patient was monitored on telemetry with no events, echocardiogram was obtained a nd was negative. Patient no other symptoms of syncope or presyncope during hosp italization. Can encouraged to check blood pressure and [...] your activity level after you leave the hosp ital. Moving around can help prevent blood clots, lung infection (pneumonia) an d other problems. Gradually increasing the number of times you are up moving ar ound will help you return to your normal activity level more quickly. Continue to increase the number of times you are up to the chair and walking daily to ret urn to your normal activity level. Begin to work toward your normal activity lev el at discharge Report These Signs and Symptoms Please contact your doctor if you have any of the following symptoms: temperatu re higher than 100 degrees F, uncontrolled pain, persistent nausea and/or vomiti ng, difficulty breathing, chest pain, severe abdominal pain, headache, unable to urinate, unable to have bowel movement or drainage with a foul odor Questions About Your Stay For questions or concerns regarding your hospital stay Call [phone]. If yo u have an emergency, do not call this number,and please dial 911. For non-urgent matters, please call during normal business hours- this will help direct your c all to a physician more familiar with your care and needs Please note: * your hospital physicians will not be managing your ongoing outpatient care. Amairani dobson direct all calls regarding ongoing outpatient care to your primary care ph ysician whenever possible. * Do not call this number to request pain medications. No pain medications will be filled nor refilled by calling this number. * All refill requests should be directed to your primary care provider. Discharging attending physician: SUZANNA GIBSON [[id number]] Regular Diet Please continue with a healthy balanced diet. Wound Care Rinse wound with saline, loosely fill with 0.25% Dakins moistened 4x4's. Use b arrier cream to the intact skin surrounding to prevent skin breakdown from moist ure. Cover with 4x4s or ABD pad and secure with tape. Change Twice daily. Additional Discharge Instructions Surgery is recommending a BMI <40 prior to scheduling surgery, this is equivalent to a weight of 220 lb Current Discharge Medication List START taking these medications Details sodium hypochlorite (DAKIN'S 1/2 STRENGTH) 0.25 % topical solution Apply topica lly to affected area twice daily. Qty: 473 [...] 1,000 mg by mouth twice daily with m den. PRESCRIPTION TYPE: Historical Med Scheduled appointments: You will need to follow-up with Dr. Lan in hernia clinic as an outpatient (Surgery) Pending items needing follow up: none Signed: Suzanna Gibson DO 05/11/2018 cc: Primary Care Physician: No Pcp, Na Verified Referring physicians: Jv Warren APRN Additional provider(s): L MAKER SCALE documented in this encounter Discharge Instructions * Appointments* Suzanna Gibson DO - 05/10/2018 9:11 AM MODEL [employer] You will need to follow-up with Dr. Lan in hernia clinic as an outpatient [phone] (Surgery) L MAKER SCALE documented in this encounter Medications at Time [...] Nazia Barney RN - 05/10/2018 12:33 PM MODEL [employer] Discharge education printed and reviewed with pt. Pt states understanding and re adiness for discharge. Medications with pt, IV removed, pt awaiting hospital tra nsport at this time. L MAKER SCALE * Suzanna Gibson DO - 05/10/2018 8:18 AM MODEL [employer] Discharge Day Progress Note Name: Lucrecia Tomas Today's Date: 05/10/2018 Admission Date: 05/08/2018 LOS: 1 day Patient seen and examined today. No symptoms overnight. Discussed weight loss , wound care and ongoing follow up. Echo normal, telemetry unremarkable. No fevers or chills overnight. Feels comfortable with plan and all questions wer e answered. Home health orders updated. Number provided in discharge paper wor k for surgery follow up. Disposition: Discharge to home w/ home health today. Suzanan Gibson Pager: [phone] >35 minutes in bodl-yi-rfig time spent with patient, patient/family counseling, coordination [...] daily with meals. Commonly known as: GLUCOPHAGE L MAKER SCALE * Mariela Balderrama RN - 05/09/2018 10:19 AM MODEL MAKER SCALE 1015 patient off unit to Echo 1120 patient back on unit L MAKER SCALE * Alize Schmitt PHARMD - 05/09/2018 9:51 AM MODEL MAKER [employer]ALE Pharmacy Vancomycin Note Subjective: Lucrecia Tomas is a 62 y.o. female being treated for abdominal wound infection . Objective: Current Vancomycin Orders Medication Dose Route Frequency vancomycin (VANCOCIN) 1,750 mg in dextrose 5% (D5W) IVPB 1,750 mg Intraveno us Q12H* vancomycin, pharmacy to manage 1 each [...] Trough Date/Time Value Ref Range Status 05/09/2018 0110 7.5 (L) 10.0 - 20.0 MCG/ML Final Assessment: Target levels for this patient: 15-20. Evaluation of level(s): Patient received vancomycin at outside hospital prior to transfer. A random vancomyinc level was obtained prior to re-dosing. Random van comycin level is 7.5 mcg/mL and acceptable to re-dose with vancomycin. Plan: 1. Patient started on Vancomycin 1750 mg IVPB every 12 hours. Will continue curr ent regimen. 2. Next scheduled level(s): prior to the 4th dose of current regimen. Sooner if acute change in clinical status. 3. Pharmacy will continue to monitor and adjust therapy as needed. Alize Schmitt PHARMD 05/09/2018 L MAKER SCALE * John Chin MD - 05/09/2018 9:11 AM MODEL MAKER SCALE Acute care surgery will sign off at this time. Please call [phone] with fur ther questions, changes or concerns. --Patient to continue to follow-up in clinic for outpatient management-- John Chin MD [id number] L MAKER SCALE * Becca Rea RN - 05/08/2018 11:07 PM MODEL [employer]ER [employer] Patient arrived to room # (7215*) via cart accompanied by transport. Patient tra nsferred to the bed with assistance. Bedside safety checks completed. Initial pa tient assessment completed, refer to flowsheet for details. Admission skin asses sment completed by: Becca Rea and Chiquita Stephenson [...] abdomen. RN changed dressing as it was saturate d with wet to dry gauze + abd pad and paper tape. See Doc Flowsheet for additional wound details. INTERVENTIONS: L MAKER SCALE documented in this encounter H&P Notes * Suzanna Gibson DO - 05/09/2018 12:46 AM MODEL [employer] Admission History and Physical Examination Name: Lucrecia Tomas Admission Date: 05/08/2018 Assessment/Plan: Principal Problem: Chronic abdominal wound infection Active Problems: Syncope Hypothyroidism Morbid obesity (HCC) Hypertension 62-year-old female with hypothyroidism, type 2 diabetes, hypertension, and morbi d obesity who presented to [facility] after syncopal episode, in the setting of recent increase in foul drainage from abdominal wound. Abdominal wound History of multiple abdominal wound infections With multiple courses of antibiotics for infected wound/mesh after hernia repair 10 years ago. Last surgery December 1999 800 on, treated with linezolid, woun d VAC. Had later developed recurrent infection, completed treatment with oral B actrim on 05/03/18. With increased foul odor/drainage beginning 05/01/18. Plan - Follow blood, wound cultures obtained at [facility] - Admission CBC with differential, CMP, CRP, blood cultures x2 - Consult acute care surgery for recommendations regard need for surgical interv ention - Start vancomycin (pharmacy to manage), zosyn - CT abd/pelvis to be uploaded into our system - Wound consult - Likely will need ID consultation depending on clinical course Syncope Suspect due to hypotension/orthostatic hypotension - has been recently taken off of hypertensive due to hypotension, and found to have likely infection. Had br ief shaking episode and staring, but no tongue biting, postictal state, or incon tinence to suggest seizure. Vasovagal syncope a consideration [...] - ok with resuscitation but would not prolonge d life support Dispo: admit to inpatient Alirio Robles MD Hospitalist Pager [phone] ATTESTATION I personally performed the portillo portions of the E/M visit, reviewed my colleague' s documentation of history, physical exam, assessment, and treatment plan and co ncur unless otherwise noted. Updates to the assessment/plan include: Patient seen with children present. All questions answered. ID consulted: antibiotics not curative, will need surgical intervention, discont inue vanc and zosyn today. Will monitor off antibiotics. Treat only with syst emic symptoms. Discussed syncopal episode, no postictal state, has been normotensive here. Ech o unremarkable. If remains stable w/o further syncope, likely can discharge home tomorrow. Will have nutrition and PT/OT consulted to see her for further education . Staff name: Suzanna Arthur, Date: 05/09/2018 Med-private Team N Team Pager [phone] __ Primary Care Physician: No Pcp, Na Chief Complaint: Syncope, abdominal wound History of Present Illness: Lucrecia Tomas is a 62 y.o. female with a history of ty pe 2 diabetes, hypertension, hyperlipidemia, hypothyroidism, and multiple abdomi nal surgeries for infected mesh after hernia repair, who was transferred to [facility] after syncopal episode and due to concern for recurren t abdominal infection. She has undergone multiple surgeries for infected mesh over the past few years, the last of which took place at [facility] in December 2017. Previo us surgeries had been at [facility] in [place], [place]. After the surgery i december, she was treated with a course of linezolid, improved, and was disch arged home for a few weeks. After that, she began to have increased L odorous d rainage from the wound, and returned to the hospital where she had an I&D and wound VAC placed. Eventually the wound [...] the antibiotics, however, the patient began to not ice increased foul-smelling drainage from the wound again. Also of note, she has a history of hypertension but had been taken off of all an tihypertensives by her primary care physician 2-3 weeks ago due to steady declin e in blood pressure. On 05/08, She was at home with her daughter and was attempting to get out of a chair when she lost consciousness. This was a witnessed episode, where the patient was unr esponsive for approximately 3 minutes. She had generator assembler to chair and had shaking of her arms. She reports feeling lightheaded prior to the event without palpitati ons. She had a brief staring spell, but after regaining consciousness, was not confused. No tongue biting or bowel/bladder incontinence. No history of syncop e. Initial blood pressure measurements after EMS was called showed a systolic p ressure in the 80s. She was then taken to [facility], who recommended transfer to for f urther evaluation of her abdominal wound. the patient is currently without complaints. She denies any fever chills, ches t pain, dyspnea, cough, nausea vomiting, abdominal pain, diarrhea or constipatio n. No orthopnea, leg swelling, palpitations. Past Medical [...] and is negative except as noted in th e HPI. Physical Exam: Vital Signs: Last Filed [...] no wheezes or rales. Normal work of b reathing on room air. Heart: Normal rate, regular rhythm, S1 & S2 normal, no murmur rubs or gallops Abdomen: Soft, non-tender, nondistended, no rebound or guarding. Wound as noted below Peripheral pulses: 2+ and symmetric radial pulses Skin: Skin color, texture, turgor normal. Open abdominal wound ~3-4 x1.5 cm c m with minimal purulence noted Lymph nodes: Cervical, supraclavicular nodes normal Neurologic: CNII - XII intact, moves all 4 extremities w/o apparent deficit Psychiatric: Calm, cooperative, oriented to person, place, and time. Normal affe ct, judgement. Extremities: no LE edema Lab/Radiology/Other Diagnostic Tests: 24-hour labs: Results for orders placed or performed during the hospital encounter of 05/08/18 (from the past 24 hour(s)) POC GLUCOSE Collection Time: 05/09/18 12:25 AM Result Value Ref Range Glucose, POC 102 (H) 70 - 100 MG/DL Labs at [facility]: ABG 7.36/30 CBC hemoglobin 13, WBC 12.4, platelets 507 Troponin negative CMP sodium 138, potassium 4.6, bicarb 20, chloride 107, anion gap 16, creatinine 0.9, albumin 4.1, calcium 10.5, glucose 138, AST 25, AST 16 UA with trace ketones, pH 5.5, negative for protein, negative for nitrites, trac e leukocytes with 5-10 WBCs, 2-5 RBCs, 1+ bacteria, 10-20 epithelial cells POC Glucose (Download): (!) 102 (05/09/18 0025) No pertinent radiology. CT head and CT abd/pelvis from OSH without available report. Imaging to be uploa ded into our system by unit staff. Edil Robles MD Pager [phone] L MAKER SCALE documented in this encounter Consult Notes * Kelley Centeno - 05/10/2018 12:51 PM MODEL MAKER SCALE Associated Order(s): CONSULT DIETITIAN CLINICAL NUTRITION Clinical Nutrition Assessment Summary NAME:Lucrecia Tomas :1955 AGE : 62 y.o. ADMISSION DATE: 05/08/2018 DAYS ADMITTED: LOS: 1 day Comments: Consult for weight loss education. Met with patient prior to discharge and educa waqar her on healthy wt loss to appropriate BMI. Patient was very receptive. Prov ided and reviewed nutrition information to promote healthy wt loss of approx 1 l b weekly. Encouraged pt to set goal of 10 pounds wt loss and overall goal of 30 pounds wt loss to achieve a more healthy weight status. Discussed plate method. Encouraged pt to make half of plate from fruit and vegetables. Encouraged lean meats and whole grains. Encouraged pt to consume 3 meals daily and avoid snackin g between meals. Encouraged pt to keep a food diary to aid in accountability of dietary intake. Encouraged pt to avoid eating empty calorie foods or to reduce p ortion sizes of empty calorie foods. Pt verbalized understanding, expect good co mpliance. Recommendation: DM 60g CHO per meal Kelley Centeno, MS, RD, LD Pager: [phone] Office: [phone] L MAKER SCALE * Cammie Duckworth RN - 05/09/2018 12:13 PM MODEL [employer]ER [employer]ALE Associated Order(s): CONSULT WOUND/OSTOMY TEAM NURSE Wound Ostomy Note NAME:Lucrecia Tomas :1955 AGE: 62 y.o. ADMISSION DATE: 05/08/2018 DAYS ADMITTED: LOS: 0 days Reason for Consult/Visit: wound not pressure Assessment/Plan: Principal Problem: Chronic abdominal wound infection Active Problems: Hypothyroidism Morbid obesity (HCC) Hypertension Syncope Wounds (NOT for Pressure Injuries) 05/08/18 2300 Anterior Abdomen Surgical Incis ion (Active) 05/08/18 2300 Abdomen Wound Orientation: Anterior [...] obesity and DMII well controlled on metformin trans fered from OSH for syncopal work-up and surgical evaluation for chronic abdomina l wound/mesh infections. Wound team consult for chronic open abdominal wound. Measurements as above. En tire wound base with visual mesh and suture. West drainage with strong odor. Patient will follow up with outpatient surgery for possible mesh excision/hernia repair. RECOMMEND: Rinse wound with saline, loosely fill with 0.25% Dakins moistened 4x4's. Use ba rrier cream to the intact skin surrounding to prevent skin breakdown from moistu re. Cover with 4x4s or ABD pad and secure with tape. Change BID --- Primary Team is responsible for placing wound care orders. 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 Conv erted laparoscopic -> open. Prolonged lysis of adhesions. No enterotomy noted, healthy appearing bowel. Repaired hernia and closed -Inferior aspect of incision from 12/30 surgery opened in Jan 2018, has been gibran kiran malodorous purulent drainage since -02/03 wound swab ([facility]): MRSA (S clinda, dapto, rifampin, TMP/SMX, tetracycline, vancomycin (ROXANNA=1) -02/03 BC x2 ([facility]): NG -02/04 at [facility] - I&D was performed with wound vac placement. IV abx --> PO Bactrim - 02/04 I&D culture: MRSA (S clinda, dapto, rifampin, TMP/SMX, tetracycline, vancomycin (ROXANNA=2) -03/01 Wound swab: MRSA S dapto, tetracycline, vancomycin (ROXANNA=2). 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, Scant growt h MRSA -05/08 BC x2 ([facility])- NG x1 day -On vancomycin and Zosyn [...] from abdominal hernia repair site with mesh, a ntibiotics will not be curative in this case as will continue to be reinfected, will need surgical intervention with mesh removal once she is deemed an appropri ate candidate from the surgical service -For now, no systemic signs/symptoms of infection, stable drainage, no celluliti s - will d/c vancomycin and Zosyn today, she needs to continue local wound care as per wound care team and surgery team -Advised patient to monitor for signs of systemic infection, watch for celluliti s, increased abdominal pain, fever, swelling- if pt does start having these issu es, could start empiric therapy based on prior wound swab culture data, I advise d the patient if any of that she will need to go to emergency department or seek medical care -Follow 05/08 wound swab and blood cultures from [facility] - would not treat based on swab results unless new systemic infectious symptoms -Monitor off abx therapy -ID will sign off at this time, please contact if any further questions or emi rns Narinder Ward DO Infectious Disease Fellow Pager [phone] Patient seen and discussed with Dr. Benjamin ATTESTATION I have seen and examined the patient. I discussed the case with Resident/fellow. I concur with the Fellow/Resident findings documented in this note. I personally reviewed the history, laboratory and microbiology data as well as imaging stud ies. I reviewed patient record and summarized them, I reviewed culture results. At this time patient has chronic infection of her abdominal wall mesh. Antibi otics will not be helpful at this time unless the patient has systemic symptoms. Antibiotic will predispose her to side effect and increased resistance. At th is time I think continue local wound care. And follow with surgery Staff name: Lino Benjamin MD Date: 05/09/2018 History of Present Illness Lucrecia Tomas is a 62 y.o. female with PMH of DM type II, HTN, hypothyroidism, ?HC V, and hx of multiple abdominal surgeries for ventral hernia with mesh replaceme nt who ID is asked to evaluate for possible mesh infection. Patient initially with trauma 35 years ago - underwent exploratory laparotomy wi repair of a liver laceration and splenectomy. She developed an umbilical her jose antonio after becoming , then underwent repair about 25 years ago. Since at time, she has had intermittent incarceration of her hernia requiring mesh rem oval and replacement for repair. Last repair was in 12/2017 in [place]- op report noted severe amount of adhesions of the bowel and omentum through the ant erior abdominal wall, small bowel severely adhered to mesh. Converted laparosco pic -> open. Performed prolonged lysis of adhesions. No enterotomy noted, healthy appearing bowel. Repaired hernia with mesh and closed the wound. About 4 weeks later she developed an opening at the inferior aspect of her incis ion which initially drained clear fluid followed by purulent and malodorous disc harge. She returned to the hospital at [facility] in [place] - wound s wab obtained on 02/03, I&D was performed the [...] the linezolid, she had worsening drainage again. Event ually another culture was obtained on 04/01, again grew MRSA. Received at least one more course of Bactrim, maybe 2. Last course completed last Sunday, but th is time after initial improvement in drainage it actually worsened while still h aving 2 days of therapy left. Has just been managing with home wound care since . Presented to [facility] yesterday - she was attempting to get out of the chair, lost consciousness, was unresponsive x3 minutes. Had some shaking of her arms while holding on to the chair. No post-ictal confusion. No bowel/blader incontinence. She was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 1:10 AM MODEL MAKER SCALE) Vancomycin 7.5 (L) 10.0 - 20.0 MCG/ML MAIN LAB Trough Specimen Performing Organization Address City/[facility]/Zipcode Phone Number MAIN LAB [address] [place] [address] * COMPREHENSIVE METABOLIC PANEL (05/09/2018 1:10 AM MODEL MAKER SCALE) Sodium 136 (L) 137 - 147 MMOL/L [...] >60 >60 mL/min [facility] Comment: [place] The eGFR is not validated for use in drug dosing adjustments.Continue to use estimated creatinine clearance per dosing reference text.Please contact the Clinical Pharmacist for questions. eGFR >60 >60 mL/min [facility] [place] Comment: The eGFR is not validated for use in drug dosing adjustments.Continue to use estimated creatinine clearance per dosing reference text.Please contact the Clinical Pharmacist for questions. Specimen Blood Performing Organization Address City/[facility]/Zipcode Phone Number MAIN LAB [address] [place] [address] * CBC AND DIFF (05/09/2018 1:10 AM MODEL MAKER SCALE) Pathologist [facility] White Blood 9.1 4.5 - 11.0 K/UL [...] Basophil Count Specimen Blood Performing Organization Address City/[facility]/Zipcode Phone Number MAIN LAB [address] [place] [address] * BNP (B-TYPE NATRIURETIC PEPTI) (05/09/2018 1:10 AM MODEL MAKER SCALE) Pathologist [facility] B Type 20.0 0 - 100 PG/ML [facility]IN [facility] Natriuretic Peptide Specimen Blood Performing Organization Address City/[facility]/Zipcode Phone Number MAIN LAB [address] [place] [address] * C REACTIVE PROTEIN (CRP) (05/09/2018 1:10 AM MODEL MAKER SCALE) Pathologist [facility] C-Reactive 0.34 <1.0 MG/DL [facility]IN [facility] Protein Specimen Blood Performing Organization Address City/[facility]/Zipcode Phone Number MAIN LAB [address] [place] [address] * CULTURE-BLOOD W/SENSITIVITY (05/09/2018 1:10 AM MODEL MAKER SCALE) Battery Name BLOOD CULTURE [facility]IN [facility] Specimen BLOOD [facility] Description RIGHT ANTECUBITAL Special NONE [facility] MAIN [facility] Requests Culture NO GROWTH 5 DAYS [facility]IN [facility] Report Status FINAL [facility]IN [facility] 05/15/2018 Specimen Blood Performing Organization Address City/[facility] Phone Number [facility] LAB [address] [place] [address] * MAGNESIUM (05/09/2018 1:10 AM MODEL MAKER SCALE) Magnesium 1.8 1.6 - 2.6 mg/dL MAIN LAB Specimen Blood Performing Organization Address [facility] Phone Number MA[facility] LAB [address] [place] [address] * TSH WITH FREE T4 REFLEX (05/09/2018 1:10 AM MODEL MAKER SCALE) TSH 4.860 0.35 - 5.00 MCU/ML MAIN LAB Specimen Blood Performing Organization Address [facility] Phone Number MA[facility] LAB [address] [place] [address] * PTT (APTT) (05/09/2018 1:10 AM MODEL MAKER SCALE) APTT 24.3Comment: NOTE NEW 24.0 - 36.5 SEC MAIN LAB REFERENCE RANGES Specimen Blood Performing Organization Address City/[facility]/Zipcode Phone Number MAIN LAB [address] [place] [address] * PROTIME INR (PT) (05/09/2018 1:10 AM MODEL MAKER SCALE) INR 1.1 0.8 - 1.2 MAIN LAB Specimen Blood Performing Organization Address City/[facility]/Zipcode Phone Number MAIN LAB [address] [place] [address] * POC GLUCOSE (05/09/2018 12:25 AM MODEL MAKER SCALE) Glucose, POC 102 (H) 70 - 100 MG/DL MAIN LAB Specimen Performing Organization Address City/[facility]/Zipcode Phone Number [facility] MAIN [facility] [address] [place] [address] * CT HEAD EXTERNAL IMAGING (05/08/2018 3:35 PM MODEL MAKER SCALE) Specimen Narrative Performed At This order has been auto finalized and does not contain a result. * GENERAL RAD CHEST EXTERNAL IMAGING (05/08/2018 2:35 PM MODEL MAKER SCALE) Specimen Narrative Performed At This order has been auto finalized and does not contain a result. * TELEMETRY STRIPS-SCAN (05/08/2018 12:00 AM MODEL MAKER SCALE) Narrative Performed At Ordered by an unspecified provider. * ECG-SCAN (05/08/2018 12:00 AM MODEL MAKER SCALE) Narrative Performed At Ordered by an unspecified [...] Medication Order MAR Action 05/10/2018 9:22 AM MODEL MAKER SCALE 40 mg Ankle, Right enoxaparin (LOVENOX) syringe [...] mg Arm, Left Given 05/09/2018 9:42 PM MODEL MAKER SCALE 40 mg Abdominal Tissue Given 05/09/2018 8:01 AM MODEL MAKER SCALE 05/09/2018 6:00 AM MODEL MAKER SCALE 100 mL iohexol (OMNIPAQUE-350) 350 mg/mL Given injection 100 mL 100 mL, Intravenous, ONCE, 1 dose, Yael 05/09/18 at 0600, NOTE: This is a HIGH ALERT Medication., 05/09/2018 1:38 AM MODEL MAKER SCALE 1,000 mL 125 mL/hr lactated ringers infusion Given - New 1,000 mL, 1,000 mL, Intravenous, at 125 Bag mL/hr, ONCE, 1 dose, Yael 05/09/18 at 0045 05/10/2018 6:34 AM MODEL MAKER SCALE 200 mcg levothyroxine (SYNTHROID) tablet 200 mcg Given 200 mcg, Oral, DAILY, First dose on Yael 05/09/18 at 0700, Until Discontinued, Give 1 hour before a meal. If patient is receiving tube feedings, hold tube feed 1hr before and 1hr after dose., 200 mcg Given 05/09/2018 7:55 AM MODEL MAKER SCALE 05/09/2018 11:40 AM MODEL MAKER SCALE 2 Diluted mL perflutren lipid microspheres (DEFINITY) Given injection 1-20 Diluted mL 1-20 Diluted mL, Intravenous, ONCE, 1 dose, Yael 05/09/18 at 1145, NOTE: This is a HIGH ALERT Medication., MAC Procedure Area Only - Medications 05/09/2018 12:48 PM MODEL MAKER SCALE 3.375 g 200 mL/hr piperacillin/tazobactam (ZOSYN) 3.375 g Given in sodium chloride 0.9% (NS) 100 mL IVPB (MB+) 3.375 g, Intravenous, at 200 mL/hr, EVERY 6 HOURS, First dose on Yael 05/09/18 at 0130, Until Discontinued 3.375 g 200 mL/hr Given 05/09/2018 7:55 AM MODEL MAKER SCALE 3.375 g 200 mL/hr Given 05/09/2018 1:38 AM MODEL MAKER SCALE 05/09/2018 9:43 PM MODEL MAKER SCALE 20 mg pravastatin (PRAVACHOL) tablet 20 mg Given 20 mg, Oral, AT BEDTIME DAILY, First dose on Yael 05/09/18 at 0100, Until Discontinued 20 mg Given 05/09/2018 1:38 AM MODEL MAKER SCALE 05/09/2018 6:00 AM MODEL MAKER SCALE 50 mL sodium chloride PF 0.9% injection 50 mL Given 50 mL, Intravenous, ONCE, 1 dose, Yael 05/09/18 at 0600, DO NOT SEND this medication unless it is requested. This med is usually available in floor stock., Intra-procedure (IR) 05/10/2018 9:23 AM MODEL MAKER SCALE sodium hypochlorite (DAKIN'S 1/2 Given STRENGTH) 0.25 % topical solution Irrigation, TWICE DAILY, First dose on Yael 05/09/18 at 2100, Until Discontinued Given 05/09/2018 9:47 PM MODEL MAKER SCALE 05/09/2018 3:19 AM MODEL MAKER SCALE 1,750 mg 357 mL/hr vancomycin (VANCOCIN) 1,750 [...]
--- OUTSIDE RECORDS SUMMARY | 2018-10-08 11:26 | XMS REPORT | Encounter Summary ---
Author Author [facility] Organization [facility] Address Unknown Phone Unavailable Care Team Providers Care Hearth Feeder Name Role Phone No Pcp, Na PCP Unavailable Encounter Details Care Team Description Date Type Department 05/08/2018 Hospital [facility] [address] [address] Social History Date Tobacco Use [...] IMAGING Routine 05/08/2018 Diagnosis unknown 3:35 PM WELL TESTER documented in this encounter Results * CT HEAD EXTERNAL IMAGING (05/08/2018 3:35 PM WELL TESTER) Specimen Narrative Performed At This order has been auto finalized and does not contain a result. documented in this encounter Visit Diagnoses Not on filedocumented in this encounter
[2018-10-08] MEDS ORDERED: NS IV 1000 ML 1,000 ML IV ONE ×3 (11:34→13:16)
[2018-10-08 11:35] LABS: ALBUMIN 2.5 GM/DL (3.2-4.5); BILIRUBIN,TOTAL 1.1 MG/DL (0.1-1.0); CALCIUM 7.8 MG/DL (8.5-10.1); CREATININE SERUM 1.46 MG/DL (0.60-1.30); MAGNESIUM 1.8 MG/DL (1.8-2.4); POTASSIUM 3.9 MMOL/L (3.6-5.0); TOTAL PROTEIN 7.5 GM/DL (6.4-8.2)
--- NOTE | 2018-10-08 11:57 | Diagnostic Imaging Report ---
INDICATION: Weakness. Comparison made with prior examination 07/02/2018. FINDINGS: The heart size, mediastinal configuration, and pulmonary vascularity are within normal limits. There is no pleural effusion, pneumothorax, or pneumonia. The osseous structures are unremarkable. IMPRESSION: No acute cardiopulmonary abnormality. Dictated by: Dictated on workstation # [id number]
[2018-10-08] MEDS ORDERED: PIPERACILLIN/TAZOBACTAM (BULK) 4.5 GM in NS (IVPB) 100 ML IV ONE (12:15)
[2018-10-08] MEDS ORDERED: PIPERACILLIN/TAZO 4.5 GM VIAL (ZOSYN) IV ONE (12:17)
[2018-10-08] MEDS ORDERED: NS (IVPB) 250 ML ONE ×2 (12:17→14:44)
[2018-10-08] MEDS ORDERED: NOREPINEPHRINE 4 MG/4 ML (LEVOPHED) AMP IV ONE ×2 (12:17→14:44)
[2018-10-08 12:18] LABS: BILIRUBIN,URINE NEGATIVE (NEGATIVE); CLARITY,URINE VERY CLOUDY; COLOR,URINE YELLOW; GLUCOSE, URINE (UA) NEGATIVE (NEGATIVE); KETONES,URINE 1+ (NEGATIVE); LEUKOCYTE ESTERASE ,URINE 3+ (NEGATIVE); NITRITE,URINE NEGATIVE (NEGATIVE); PH,URINE 6.5 (5-9); PROTEIN,URINE 3+ (NEGATIVE); UROBILINOGEN,URINE NORMAL (NORMAL)
[2018-10-08] MEDS ORDERED: NS (IVPB) 100 ML ONE (12:18)
[2018-10-08] MEDS: NOREPINEPHRINE 4 MG in NS (IVPB) 250 ML IV SCH ×4 (12:34→14:57)
[2018-10-08 12:36] LABS: BACTERIA,URINE LARGE /HPF; WBC,URINE TNTC /HPF
[2018-10-08] MEDS ORDERED: NS IV 500 ML 500 ML ONE (12:37)
[2018-10-08] MEDS ORDERED: cefTRIAXone FOR IV USE 1,000 MG in WATER (STERILE) FOR INJECTION 10 ML IV ONE (12:45)
--- NOTE | 2018-10-08 12:54 | ED General ---
General Chief Complaint: General Problems/Pain Stated Complaint: AMS Nursing Triage Note: TO ED PER [facility] WHO REPORT THEY WAS CALLED FOR WEAKNESS. AND HERNIA RUPTURE. PATIENT IS GETTING TPN AT HOME.HERNIA APPEARS TO BE THROUGH ABD WALL PATIENT REPORTS IT HAS BEEN THAT WAY FOR AWHILE. 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 Family notes there was a large amount of bloody fluid in the collection sac that usually covers the fistula. There is also a large amount of bloody fluid on the floor. The fistula normally drains a Laurence-appearing fluid. On exam the patient had greenish purulent material pooled in the fistula site. Patient is alert and oriented but mentation is dulled. She was recently admitted to this facility September 13 for urinary tract infection. Patient is suspected to have sepsis from urinary tract infection or the fistula site. She is not actively bleeding on arrival. Patient has multiple risk factors for sepsis including TPN, diabetes and open fistula. She has a referral to [facility] for surgical repair. Surgery has been delayed to date until patient can achieve weight loss to 200 pounds. Allergies and Home Medications Allergies Coded Allergies: linezolid (Verified Allergy, Severe, swelling to tongue, skin rash, 09/13/18) Home Medications Ceftriaxone Sodium 1 Gm Vial, 1 GM IJ DAILY Prescribed by: ARCHIE ESPINO on 09/17/18 1054 Fluticasone Propionate 9.9 Ml Moran.susp, 2 SPRAY NS DAILY PRN for ALLERGIES, (Reported) Levothyroxine Sodium 25 Mcg Tablet, 25 MCG PO DAILY, (Reported) LAST FILLED #30 05-27-18 Levothyroxine Sodium 200 Mcg Tablet, 200 MCG PO DAILY, (Reported) LAST FILLED #30 05-27-18 Patient Home Medication List Home Medication List Reviewed: Yes Review of Systems Review of Systems Constitutional: see HPI EENTM: no symptoms reported Respiratory: no symptoms reported Cardiovascular: see HPI Gastrointestinal: see HPI Genitourinary: see HPI : No Musculoskeletal: no symptoms reported Skin: see HPI Psychiatric/Neurological: See HPI Hematologic/Lymphatic: See HPI Immunological/Allergic: no symptoms reported Past Bewxkak-Glgvez-Qmrmud Hx Past Med/Social Hx: Reviewed and Corrections made Patient Social History Alcohol Use: Denies Use Recreational Drug Use: No Smoking Status: Never a Smoker 2nd Hand Smoke Exposure: No Recent Foreign Travel: No Contact w/Someone Who Travel: No Recent Infectious Disease Expo: No Recent Hopitalizations: Yes Physical Abuse: No Sexual Abuse: No Mistreated: No Fear: No Immunizations Up To Date Tetanus Booster (TDap): Unknown Date of Pneumonia Vaccine: Apr 09, 2018 Date of Influenza Vaccine: Jan 07, 2018 Seasonal Allergies Seasonal Allergies: No Past Medical History Surgeries: Yes (TUBAL, 1 OPEN EXPLORATORY, 6 HERNIA REPAIRS , I &D OF ABD WOUND, CARPAL POLINA) Abdominal Respiratory: No Cardiac: Yes Hypertension Neurological: No : No Reproductive Disorders: No Genitourinary: No Gastrointestinal: Yes (enterocutaneous FISTULA, HERNIA WITH MESH, OPEN ABD WOUND TO CENTER OF ABD) Hepatitis Musculoskeletal: Yes Arthritis Endocrine: Yes Hypothyroidsim HEENT: No Cancer: No Psychosocial: No Integumentary: No Blood Disorders: No Family Medical History Heart Disease, Renal Disease Physical Exam-Suspected Sepsis Physical Exam Vital Signs Vital Signs - First Documented 10/08/18 10/08/18 10:47 12:42 Temp 100.5 Pulse 106 Resp 18 B/P (MAP) 82/53 (63) Pulse Ox 96 O2 Delivery Nasal Cannula O2 Flow Rate 3.00 Capillary Refill : Less Than 3 Seconds Blood Pressure Mean: 56 Height, Weight, BMI Height: 5'3.00" Weight: 232lbs. 0.0oz. 105.604631ov; 41.0 BMI Method:Actual General Appearance: No Apparent Distress, WD/WN HEENT: PERRL/EOMI, Normal ENT Inspection, Other (oropharynx very dry) Neck: Normal Inspection Respiratory: Lungs Clear, Normal Breath Sounds, No Accessory Muscle Use, No Respiratory Distress Cardiovascular: Regular Rate, Rhythm, No Edema, Tachycardia Gastrointestinal: Non Tender, Soft, Abnormal Bowel Sounds (decreased), Other (large enterocutaneous fistula with bowel protruding. Purulent drainage pooled around the edges of the fistula) Extremity: Normal Inspection, No Pedal Edema Neurologic/Psychiatric: Alert, Oriented x3, No Motor/Sensory Deficits, Normal Mood/Affect, mosaicist II-XII Norm as Tested Skin: normal color, warm/dry, other (see above) Focused Exam Lactate Level 10/08/18 13:55: Lactic Acid Level 2.99*H 10/08/18 16:47: Lactic Acid Level 3.27*H 10/08/18 19:39: Lactic Acid Level 3.14*H Lactic Acid Level Laboratory Tests Test 10/08/18 16:47 10/08/18 19:39 Lactic Acid Level 3.27 MMOL/L (0.50-2.00) *H 3.14 MMOL/L (0.50-2.00) *H Progress/Results/Core Measures Suspected Sepsis Recent Fever Within 48 Hours: Yes Infection Criteria Present: Suspected New Infection New/Unexplained Altered Menta: Yes Sepsis Screen: Possible Severe Sepsis Risk SIRS Temperature:98.2 Pulse: 98 Respiratory Rate: 18 Laboratory Tests 10/08/18 10:57: White Blood Count 10.7 10/08/18 16:47: White Blood Count 13.1H Blood Pressure 83 /42 Mean: 56 10/08/18 13:55: Lactic Acid Level 2.99*H 10/08/18 16:47: Lactic Acid Level 3.27*H 10/08/18 19:39: Lactic Acid Level 3.14*H Laboratory Tests 10/08/18 10:57: Creatinine 1.46H, INR Comment 1.3, Platelet Count 213, Total Bilirubin 1.1H 10/08/18 16:47: Creatinine 1.45H, Platelet Count 168, Total Bilirubin 1.4H Results/Orders Lab Results Laboratory Tests Test 10/08/18 10:57 10/08/18 11:30 10/08/18 12:12 10/08/18 13:55 Range/Units White Blood Count 10.7 4.3-11.0 10^3/uL Red Blood Count 3.78 L 4.35-5.85 10^6/uL Hemoglobin 11.8 11.5-16.0 G/DL Hematocrit 36 35-52 % Mean Corpuscular Volume 95 80-99 FL Mean Corpuscular Hemoglobin 31 25-34 PG Mean Corpuscular Hemoglobin Concent 33 32-36 G/DL Red Cell Distribution Width 20.5 H 10.0-14.5 % Platelet Count 213 130-400 10^3/uL Mean Platelet Volume 11.7 H 7.4-10.4 FL Neutrophils (%) (Auto) 72 42-75 % Lymphocytes (%) (Auto) 18 12-44 % Monocytes (%) (Auto) 9 0-12 % Eosinophils (%) (Auto) 0 0-10 % Basophils (%) (Auto) 1 0-10 % Neutrophils # (Auto) 7.7 1.8-7.8 X 10^3 Lymphocytes # (Auto) 1.9 1.0-4.0 X 10^3 Monocytes # (Auto) 1.0 0.0-1.0 X 10^3 Eosinophils # (Auto) 0.0 0.0-0.3 10^3/uL Basophils # (Auto) 0.1 0.0-0.1 10^3/uL Prothrombin Time 16.4 H 12.2-14.7 SEC INR Comment 1.3 0.8-1.4 Activated Partial Thromboplast Time 32 24-35 SEC Sodium Level 135 135-145 MMOL/L Potassium Level 3.9 3.6-5.0 MMOL/L Chloride Level 102 98-107 MMOL/L Carbon Dioxide Level 25 21-32 MMOL/L Anion Gap 8 5-14 MMOL/L Blood Urea Nitrogen 34 H 7-18 MG/DL Creatinine 1.46 H 0.60-1.30 MG/DL Estimat Glomerular Filtration Rate 36 BUN/Creatinine Ratio 23 Glucose Level 172 H 70-105 MG/DL Lactic Acid Level 2.17 *H 2.99 *H 0.50-2.00 MMOL/L Calcium Level 7.8 L 8.5-10.1 MG/DL Corrected Calcium 9.0 8.5-10.1 MG/DL Magnesium Level 1.8 1.8-2.4 MG/DL Total Bilirubin 1.1 H 0.1-1.0 MG/DL Aspartate Amino Transf (AST/SGOT) 102 H 5-34 U/L Alanine Aminotransferase (ALT/SGPT) 65 H 0-55 U/L Alkaline Phosphatase 116 40-136 U/L C-Reactive Protein High Sensitivity 6.43 H 0.00-0.50 MG/DL Total Protein 7.5 6.4-8.2 GM/DL Albumin 2.5 L 3.2-4.5 GM/DL Glucometer 166 H 70-110 MG/DL Urine Color YELLOW Urine Clarity VERY CLOUDY H Urine pH 6.5 5-9 Urine Specific [place] 1.015 L 1.016-1.022 Urine Protein 3+ H NEGATIVE Urine Glucose (UA) NEGATIVE NEGATIVE Urine Ketones 1+ H NEGATIVE Urine Nitrite NEGATIVE NEGATIVE Urine Bilirubin NEGATIVE NEGATIVE Urine Urobilinogen NORMAL NORMAL MG/DL Urine Leukocyte Esterase 3+ H NEGATIVE Urine RBC (Auto) 4+ H NEGATIVE Urine RBC 10-25 H /HPF Urine WBC TNTC H /HPF Urine Crystals NONE /LPF Urine Bacteria LARGE H /HPF Urine Casts NONE /LPF Urine Mucus NEGATIVE /LPF Urine Culture Indicated CULTURE PENDING Test 10/08/18 16:47 10/08/18 19:39 Range/Units White Blood Count 13.1 H 4.3-11.0 10^3/uL Red Blood Count 3.98 L 4.35-5.85 10^6/uL Hemoglobin 12.5 11.5-16.0 G/DL Hematocrit 37 35-52 % Mean Corpuscular Volume 93 80-99 FL Mean Corpuscular Hemoglobin 31 25-34 PG Mean Corpuscular Hemoglobin Concent 34 32-36 G/DL Red Cell Distribution Width 19.2 H 10.0-14.5 % Platelet Count 168 130-400 10^3/uL Mean Platelet Volume 11.9 H 7.4-10.4 FL Neutrophils (%) (Auto) 76 H 42-75 % Lymphocytes (%) (Auto) 13 12-44 % Monocytes (%) (Auto) 10 0-12 % Eosinophils (%) (Auto) 0 0-10 % Basophils (%) (Auto) 1 0-10 % Neutrophils # (Auto) 10.0 H 1.8-7.8 X 10^3 Lymphocytes # (Auto) 1.8 1.0-4.0 X 10^3 Monocytes # (Auto) 1.3 H 0.0-1.0 X 10^3 Eosinophils # (Auto) 0.0 0.0-0.3 10^3/uL Basophils # (Auto) 0.1 0.0-0.1 10^3/uL Sodium Level 137 135-145 MMOL/L Potassium Level 3.6 3.6-5.0 MMOL/L Chloride Level 107 98-107 MMOL/L Carbon Dioxide Level 20 L 21-32 MMOL/L Anion Gap 10 5-14 MMOL/L Blood Urea Nitrogen 30 H 7-18 MG/DL Creatinine 1.45 H 0.60-1.30 MG/DL Estimat Glomerular Filtration Rate 36 BUN/Creatinine Ratio 21 Glucose Level 229 H 70-105 MG/DL Lactic Acid Level 3.27 *H 3.14 *H 0.50-2.00 MMOL/L Calcium Level 7.2 L 8.5-10.1 MG/DL Corrected Calcium 8.6 8.5-10.1 MG/DL Total Bilirubin 1.4 H 0.1-1.0 MG/DL Aspartate Amino Transf (AST/SGOT) 98 H 5-34 U/L Alanine Aminotransferase (ALT/SGPT) 63 H 0-55 U/L Alkaline Phosphatase 108 40-136 U/L Total Protein 6.7 6.4-8.2 GM/DL Albumin 2.3 L 3.2-4.5 GM/DL Micro Results Microbiology 10/08/18 Catheter Tip Culture - Preliminary, Resulted 10/08/18 Gram Stain, Resulted Pending 10/08/18 Wound Culture - Preliminary, Resulted My Orders Orders - ELLIE DANIEL MD Red Cells Leukocytes Reduced (10/08/18 10:58) Type And Screen (10/08/18 10:58) Cbc With Automated Diff (10/08/18 10:59) Comprehensive Metabolic Panel (10/08/18 10:59) Blood Culture (10/08/18 10:59) Sputum Culture (10/08/18 10:59) Urinalysis (10/08/18 10:59) Urine Culture (10/08/18 10:59) Protime With Inr (10/08/18 10:59) Partial Thromboplastin Time (10/08/18 10:59) Chest 1 View, Ap/Pa Only (10/08/18 10:59) Ed Iv/Invasive Line Start (10/08/18 10:59) Ed Iv/Invasive Line Start (10/08/18 10:59) Vital Signs Adult Sepsis Patie Q15M (10/08/18 10:59) O2 (10/08/18 10:59) Remove Rings In Anticipation O (10/08/18 10:59) Lactic Acid Analyzer (10/08/18 10:59) Magnesium (10/08/18 10:59) Ns Iv 1000 Ml (Sodium Chloride 0.9%) (10/08/18 11:34) Hs C Reactive Protein (10/08/18 12:14) Piperacillin/Tazobactam (Bulk) (Zosyn In (10/08/18 12:15) Norepinephrine (Levophed) (10/08/18 12:30) Ns (Ivpb) (Sodium Chloride 0.9%) (10/08/18 12:17) Norepinephrine (Levophed) (10/08/18 12:17) Piperacillin Sodium/Tazobactam (Zosyn Vi (10/08/18 12:17) Ns (Ivpb) (Sodium Chloride 0.9% Ivpb Bag (10/08/18 12:18) Ct Abdomen/Pelvis Wo (10/08/18 12:29) Ns Iv 500 Ml (Sodium Chloride 0.9%) (10/08/18 12:37) Ceftriaxone For Iv Use (Rocephin For I (10/08/18 12:45) Wound Culture (10/08/18 12:47) Ns Iv 1000 Ml (Sodium Chloride 0.9%) (10/08/18 13:16) Ns Iv 1000 Ml (Sodium Chloride 0.9%) (10/08/18 13:16) Ns Iv 500 Ml (Sodium Chloride 0.9%) (10/08/18 13:16) Meropenem (Merrem 1000 Mg) (10/08/18 13:45) Ns (Ivpb) (Sodium Chloride 0.9%) (10/08/18 14:44) Norepinephrine (Levophed) (10/08/18 14:44) Cath Tip Culture (10/08/18 15:11) Medications Given in ED Current Medications Medications Dose Ordered Sig/Giselle Route Start Time Stop Time Status Last Admin Dose Admin Ceftriaxone Sodium 1000 mg/ Sterile Water 10 ml @ 200 mls/hr ONCE ONCE IV 10/08/18 12:45 10/08/18 12:47 DC 10/08/18 13:06 200 MLS/HR Piperacillin Sod/ Tazobactam Sod 4.5 gm/Sodium Chloride 120 ml @ 240 mls/hr ONCE ONCE IV 10/08/18 12:15 10/08/18 12:44 DC 10/08/18 12:33 240 MLS/HR Sodium Chloride 500 ml @ 0 mls/hr Q0M ONCE IV 10/08/18 13:16 10/08/18 13:17 DC 10/08/18 13:38 0 MLS/HR Sodium Chloride 1,000 ml @ 0 mls/hr Q0M ONCE IV 10/08/18 11:34 10/08/18 11:35 DC 10/08/18 11:51 0 MLS/HR Sodium Chloride 1,000 ml @ 0 mls/hr Q0M ONCE IV 10/08/18 13:16 10/08/18 13:17 DC 10/08/18 12:27 0 MLS/HR Sodium Chloride 1,000 ml @ 0 mls/hr Q0M ONCE IV 10/08/18 13:16 10/08/18 13:17 DC 10/08/18 13:26 0 MLS/HR Vital Signs/I&O 10/08/18 10/08/18 10/08/18 10/08/18 10:47 11:23 12:42 13:03 Temp 100.5 98.2 98.7 Pulse 106 98 92 Resp 18 18 20 B/P (MAP) 82/53 (63) 83/42 101/54 Pulse Ox 96 94 94 95 O2 Delivery Nasal Cannula Room Air Nasal Cannula Nasal Cannula O2 Flow Rate 3.00 3.00 10/08/18 10/08/18 10/08/18 10/08/18 13:25 13:45 14:50 16:06 Temp 100.5 100.4 100.4 Pulse 86 69 69 97 Resp 16 14 14 B/P (MAP) 104/63 108/58 122/67 Pulse Ox 94 97 97 O2 Delivery Nasal Cannula O2 Flow Rate 3.00 3.00 10/08/18 10/08/18 10/08/18 10/08/18 16:13 16:15 16:23 17:00 Temp 100.4 99.6 Pulse 69 90 75 Resp 14 9 15 B/P (MAP) 122/67 (85) 101/65 (77) 117/80 (92) Pulse Ox 97 93 95 O2 Delivery Nasal Cannula Nasal Cannula Nasal Cannula O2 Flow Rate 3.00 4.00 4.00 Capillary Refill : Less Than 3 Seconds Blood Pressure Mean: 56 Point of Care Testing Finger Stick Blood Glucose: 166 Blood Glucose Action Taken: RN notified Progress Note #1: Time: 13:00 Progress Note Septic workup is being pursued. Patient received 2 L of IV fluid and was still hypertensive. The third liter is infusing now. 3 L of IVF will satisfy a 30 ML per kilogram bolus requirement for severe sepsis. [place] body weight is somewhere near 125 kg for this patient. Patient also is presumed to have significant acute blood volume loss based on history of blood loss at home. 2 units of PRBC have been ordered. One unit of blood has been completed so far. Since patient was still hypotensive after 2 L of IVF, Levophed was initiated. Systolic blood pressure is now 93. Progress Note #2: Time: 13:41 Progress Note Case was discussed with Dr. Hallman. He suggested removing the PICC line as this may be a source of infection/colonization. However, we would like to establish some other form of reliable access before removing the PICC. We will establish an IJ line and then remove the PICC and culture it. Case was discussed with Dr. Samuel. After discussing the patient's situation and reviewing prior cultures, he suggests admitting with a combination of vancomycin, meropenem, and Eraxis. If patient's blood pressure does not stabilize with Levophed he recommends adding vasopressin. Progress Note #3: Progress Note Patient's blood pressure did eventually stabilize after 4 L IV fluids, 2 units of blood, and titration of Levophed. She received Zosyn, Rocephin, and meropenem. Dr. Solares presented to the ER to assess the patient and placed an IJ line. The PICC line was then removed and the tip cultured. Patient was feeling improved. Diagnostic Imaging Diagonstic Imaging: Xray Plain Films/CT/US/NM/MRI: chest Comments Chest x-ray viewed by me and report reviewed. See report below: NAME: CHANDRAKANT TOMAS [facility] REC#: [id number] PT STATUS: REG ER : 1955 PHYSICIAN: ELLIE DANIEL MD ADMIT DATE: 10/08/18/ER Signed Date of Exam: 10/08/18 CHEST 1 VIEW, AP/PA ONLY INDICATION: Weakness. Comparison made with prior examination 07/02/2018. FINDINGS: The heart size, mediastinal configuration, and pulmonary vascularity are within normal limits. There is no pleural effusion, pneumothorax, or pneumonia. The osseous structures are unremarkable. IMPRESSION: No acute cardiopulmonary abnormality. Dictated by: Dictated on workstation # [id number] Dict: 10/08/18 1154 Trans: 10/08/18 1248 Interpreted by: KARISHMA WEEKS MD Electronically signed by: KARISHMA WEEKS MD 10/08/18 1248 Diagonstic Imaging: CT Plain Films/CT/US/NM/MRI: abdomen, pelvis Comments NAME: CHANDRAKANT TOMAS REC#: [id number] PT STATUS: REG ER : 1955 PHYSICIAN: ELLIE DANIEL MD ADMIT DATE: 10/08/18/ER Draft Date of Exam:10/08/18 CT ABDOMEN/PELVIS WO PROCEDURE: CT abdomen and pelvis without contrast. TECHNIQUE: Multiple contiguous axial images were obtained through the abdomen and pelvis without the use of intravenous contrast. Auto Exposure Controls were utilized during the CT exam to meet ALARA standards for radiation dose reduction. INDICATION: Sepsis and abdominal hernia. FINDINGS: The heart size is normal. There is some bibasilar atelectasis and/or pneumonitis. The liver is normal in size and without focal lesions. Gallbladder is surgically absent. There is no biliary ductal dilatation. 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 There is a small residual splenule. The pancreas and adrenal glands are unremarkable. Kidneys are normal in appearance. There is a spigelian hernia on the right in the upper abdomen containing only omental fat. There is also midline likely incisional hernia which has wide neck. This contains some fat and small bowel loops. There is however no evidence of obstruction or strangulation. There is Ureña catheter in the bladder. There is no pelvic mass or adenopathy. There are degenerative changes in the spine. IMPRESSION: 1. Bibasilar atelectasis and/or pneumonitis, left greater than right. 2. Spigelian hernia on the right in the upper abdomen containing only omental fat. Additionally, there is a midline likely incisional hernia containing omental fat and some small bowel loops. These however do not appear to be obstructed or strangulated. 3. Previous cholecystectomy and splenectomy. There is a small residual splenule in the left upper quadrant. 4. No other acute abnormality in the abdomen or pelvis. Dictated on workstation # [id number] Dict: 10/08/18 1435 Trans: 10/08/18 1445 [id number] Interpreted by: KARISHMA WEEKS MD Departure Communication (Admissions) Dr. Venancio Hallman at 12:25 Dr. Samuel at 13:30 Impression Primary Impression: Septic shock Additional Impressions: Enterocutaneous fistula Hemorrhage from wound Renal insufficiency Urinary tract infection Qualified Codes: N39.0 - Urinary tract infection, site not specified Disposition: ADMITTED INPATIENT Condition: Improved Departure-Patient Inst. Referrals: ERIC SCOTT MD (PCP/Family) Primary Care Physician ELLIE DANIEL MD Oct 08, 2018 12:54
[2018-10-08] MEDS ORDERED: NS IV 500 ML 500 ML IV ONE (13:16)
[2018-10-08] MEDS ORDERED: MEROPENEM 1,000 MG in WATER (STERILE) FOR INJECTION 20 ML IV ONE (13:45)
--- NOTE | 2018-10-08 14:45 | Diagnostic Imaging Report ---
PROCEDURE: CT abdomen and pelvis without contrast. TECHNIQUE: Multiple contiguous axial images were obtained through the abdomen and pelvis without the use of intravenous contrast. Auto Exposure Controls were utilized during the CT exam to meet ALARA standards for radiation dose reduction. INDICATION: Sepsis and abdominal hernia. FINDINGS: The heart size is normal. There is some bibasilar atelectasis and/or pneumonitis. The liver is normal in size and without focal lesions. Gallbladder is surgically absent. There is no biliary ductal dilatation. 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 There is a small residual splenule. The pancreas and adrenal glands are unremarkable. Kidneys are normal in appearance. There is a spigelian hernia on the right in the upper abdomen containing only omental fat. There is also midline likely incisional hernia which has wide neck. This contains some fat and small bowel loops. There is however no evidence of obstruction or strangulation. There is Ureña catheter in the bladder. There is no pelvic mass or adenopathy. There are degenerative changes in the spine. IMPRESSION: 1. Bibasilar atelectasis and/or pneumonitis, left greater than right. 2. Spigelian hernia on the right in the upper abdomen containing only omental fat. Additionally, there is a midline likely incisional hernia containing omental fat and some small bowel loops. These however do not appear to be obstructed or strangulated. 3. Previous cholecystectomy and splenectomy. There is a small residual splenule in the left upper quadrant. 4. No other acute abnormality in the abdomen or pelvis. Dictated by: Dictated on workstation # [id number]
--- NOTE | 2018-10-08 15:25 | Diagnostic Imaging Report ---
INDICATION: Line placement. Frontal chest obtained at 3:06 p.m. is compared to 11:41 a.m. the same day. FINDINGS: Heart is mildly enlarged. There is mild central vascular prominence. There is no focal consolidation, pneumothorax, or pleural fluid. There is a new right IJ central catheter with tip overlying the upper SVC. Previous left-sided PICC line is unchanged. IMPRESSION: New right-sided central venous catheter tip overlies the upper SVC. There is no pneumothorax. Previous left-sided PICC line is unchanged. There is cardiomegaly with mild central vascular prominence. Dictated by: Dictated on workstation # [id number]
--- OUTSIDE RECORDS SUMMARY | 2018-10-08 15:43 | XMS REPORT | Encounter Summary ---
Author Author [facility] [place] Organization [facility] Address Unknown Phone Unavailable Care Team Providers Care Manager Play Name Role Phone No Pcp, Na PCP Unavailable Reason for Visit * Reason Comments Post Operative Visit Encounter Details Care Team Description Date Type Department Helen Lan MD [address] [place] [address] BMI 40.0-44.9, adult (HCC) (Primary Dx); Infected hernioplasty mesh, initial encounter ([facility]) 05/21/2018 Office Visit [facility] [place] [address] [place] [address] Social History Date Tobacco Use [...] Comments Vital Sign 118/77 05/21/2018 9:38 AM [facility] Blood Pressure 122 05/21/2018 9:38 AM [facility] Pulse 36.6 C (97.8 F) 05/21/2018 9:38 [facility] Temperature 18 05/21/2018 9:38 AM [facility] Respiratory Rate - - Oxygen Saturation - - Inhaled Oxygen Concentration 113.4 kg (250 lb) 05/21/2018 9:38 AM [facility] Weight 160 cm (5' 2.99") 05/21/2018 9:38 AM [facility] Height 44.3 05/21/2018 9:38 AM [facility] Body Mass Index documented in this encounter [...] Helen Lan MD - 05/21/2018 9:30 AM [facility] Date of Service: 05/21/2018 Subjective: Lucrecia Schmitt [...] Staff name: Helen Lan MD Date: 05/22/2018 B AID documented in this encounter Plan of Treatment Not on filedocumented as of this encounter Visit Diagnoses Diagnosis BMI 40.0-44.9, adult (HCC) - Primary Body Mass Index 40.0-44.9, adult Infected hernioplasty mesh, initial encounter (HCC) documented in this encounter
--- OUTSIDE RECORDS SUMMARY | 2018-10-08 15:43 | XMS REPORT | Encounter Summary ---
Author Author [facility] Organization [facility] Address Unknown Phone Unavailable Care Team Providers Care Microcomputer Technician Name Role Phone Mamie Schuster MD PCP Reason for Visit * Reason Comments Wound Check Encounter Details Care Team Description Date Type Department Niles Barney MD [address] [facility] [place] [address] 06/26/2018 Emergency [facility] [address] [place], [place] [id number] Social History Date Tobacco Use Types Packs/Day [...] instructed. If you do not have a [facility] physician, you need to establish care with [...] CDT ED staff unable to find wound senior assistant manager as storage closet was locked. Called surge ry to inform us that they only have smaller ostomy bags and no wound managers av ailable. Wound senior assistant manager obtained and applied by surgery team and [...] Acute Care Surgery Consult Patient: Lucrecia Schmitt, [id number] Admission Date: 06/26/2018, LOS: 0 days Admission [...] fistula PLAN: - Local wound management, wound senior assistant manager on top of wound. Local skin care to avoi d skin excoriation. Patient would like to follow up with her local wound doctor for follow up and declined to see a wound/ostomy nurse at - Follow up with Dr. Lan in clinic - please call [phone] to make an appoi ntment - Optimize [...] 4:50 PM. Marcie Henriquez MD Team Pager: [phone] Associated attestation - Julio Cesar Sutton MD [...] normal. Will give her a wo und senior assistant manager and provide education on protecting her skin. [...] Donald RN - 06/26/2018 10:10 PM CDT vice president of communications at the bedside to place wound senior assistant manager. Pt tolerated well. * Dahiana Donald RN [...] currently on antibiotics. She visit with her [facility] care physician in [facility] this morning who was concerned about [...] History provided by: Patient and medical records asl interpreter used: No Review of Systems: Review of [...] Disposition not entered Helen Lan MD [address] [facility] [place] [address] Schedule an appointment as soon as possible for a visit Alternate number [phone] Wound Doctor Go to For continued wound care Mamie Schuster MD [address] [facility] [address] Call If output > 1.5L per day [...] in belonging bag with patient labels at [facility]. The bag(s) contain(s) the following: Clothing: shirt, [...] POC LACTATE (06/26/2018 2:13 PM CDT) Pathologist [facility] LACTIC ACID POC 1.2 0.5 - 2.0 MMOL/L MAIN LAB Specimen Performing Organization Address City/[facility] Phone Number [facility] LAB [address] [place] [address] * COMPREHENSIVE METABOLIC PANEL (06/26/2018 12:37 PM CDT) Pathologist [facility] Sodium 138 137 - 147 MMOL/L [facility] [...] >60 >60 mL/min [facility] Comment: [place] The eGFR is not validated for use in drug dosing adjustments.Continue to use estimated creatinine clearance per dosing reference text.Please contact the Clinical Pharmacist for questions. eGFR >60 >60 mL/min [facility] [place] Comment: The eGFR is not validated for use in drug dosing adjustments.Continue to use estimated creatinine clearance per dosing reference text.Please contact the Clinical Pharmacist for questions. Specimen Blood Performing Organization Address City/State/Zipcode Phone Number [facility] [address] [place] [address] * CBC AND DIFF (06/26/2018 12:37 PM [...] Basophil Count Specimen Blood Performing Organization Address City/[facility]/Zipcode Phone Number [facility] [address] [place] [address] documented in this encounter Visit Diagnoses Diagnosis [...]
--- OUTSIDE RECORDS SUMMARY | 2018-10-08 15:43 | XMS REPORT | Clinical Summary ---
Author Author [facility] Organization [facility] Address Unknown Phone Unavailable Care Team Providers Care Stockroom Attendant Name Role Phone Mamie Schuster MD PCP Source Comments Some departments are not documenting in the electronic medical record. If you d o not see the information that you expected, contact Release of Information in [facility] [employer] Information Management department at [phone] for further assistan ce in locating additional records.[facility] Allergies No Known Allergies Medications End Date [...] CDT Blood Pressure 122 05/21/2018 9:38 AM AUTOMATION QA ANALYST Pulse 36.5 C (97.7 F) 06/26/2018 12:22 PM CDT Temperature 18 05/21/2018 9:38 AM AUTOMATION QA ANALYST Respiratory Rate 97% 06/26/2018 9:00 PM CDT [...] 2018-P CHOICE PPO resent Advance Directives Patient Junior Media Buyer Explanation Type Date Recorded Advance 05/10/2018 12:00 AM Directive/DPOA Advance 05/10/2018 12:00 AM Directive/DPOA Date Inactivated Comments Code Status Date Activated 05/10/2018 2:56 PM Full Code 05/09/2018 12:43 AM Provider has discussed Code Status Yes w/Patient or Family?
--- OUTSIDE RECORDS SUMMARY | 2018-10-08 15:44 | XMS REPORT | Encounter Summary ---
Author Author [facility] Organization [facility] Address Unknown Phone Unavailable Care Team Providers Care Chief Security And Safety Officer Name Role Phone No Pcp, Na PCP Unavailable Encounter Details Care Team Description Date Type Department 05/08/2018 Hospital [facility] [address] [address] Social History Date Tobacco Use [...] IMAGING Routine 05/08/2018 Diagnosis unknown 3:35 PM STITCHER FEEDER documented in this encounter Results * CT HEAD EXTERNAL IMAGING (05/08/2018 3:35 PM STITCHER FEEDER) Specimen Narrative Performed At This order has been auto finalized and does not contain a result. documented in this encounter Visit Diagnoses Not on filedocumented in this encounter
--- OUTSIDE RECORDS SUMMARY | 2018-10-08 15:44 | XMS REPORT | Encounter Summary ---
Author Author [facility] Organization [facility] Address Unknown Phone Unavailable Care Team Providers Care Senior Commissary Agent Name Role Phone No Pcp, Na PCP Unavailable Reason for Visit * Auth/Cert Referred By Contact Referred To Contact Status Reason Specialty Diagnoses / Procedures Diagnoses Open abdominal wall wound Syncope abdominal wound, syncope Encounter Details Care Team Description Date Type Department Rachel Garcia MD [address] [place] [address] [phone] Edil Robles MD [address] [place] [address] [phone] Suzanna Gibson DO [address] [place] [address] [phone] Chronic abdominal wound infection 05/08/2018 [facility] 05/10/[address] [place] [address] Social History Date Tobacco Use Types Packs/Day [...] Comments Vital Sign 125/59 05/10/2018 11:32 AM P[employer]IONS RETIREMENT PLAN SPECIALIST Blood Pressure 76 05/10/2018 11:32 AM PENSIONS RETIREMENT PLAN SPECIALIST Pulse 36.6 C (97.9 F) 05/10/2018 11:32 AM PENSIONS RETIREMENT PLAN SPECIALIST Temperature - - Respiratory Rate 98% 05/10/2018 11:32 AM PENSIONS RETIREMENT PLAN SPECIALIST Oxygen Saturation - - Inhaled Oxygen Concentration 118.6 kg (261 lb 6.4 oz) 05/08/2018 11:00 PM PENSIONS RETIREMENT PLAN SPECIALIST Weight 160 cm (5' 3") 05/08/2018 11:00 PM PENSIONS RETIREMENT PLAN SPECIALIST Height 46.3 05/08/2018 11:00 PM PENSIONS RETIREMENT PLAN SPECIALIST Body Mass Index documented in this encounter Functional Status Date of Assessment Functional Status Response 05/09/2018 Does the patient have a hearing impairment: Yes documented as of this encounter Discharge Summaries * Suzanna Gibson DO - 05/10/2018 12:51 PM P[employer] RETIREMENT PLAN SPECIALIST Physician Discharge Summary Name: Lucrecia Tomas Date Of : 1955 Age: 62 years Admit date: 05/08/2018 Discharge date: 05/10/2018 Attending Physician: Suzanna Gibson DO Service: [facility] N- [id number] [phone] Physician Summary completed [...] or concerns regarding your hospital stay Call [phone]. If yo u have an emergency, do [...] care provider. Discharging attending physician: SUZANNA GIBSON [[id number]] Regular Diet Please continue with a healthy [...] Referring physicians: Jv Warren APRN Additional provider(s): I[employer] RETIREMENT PLAN SPECIALIST documented in this encounter Discharge Instructions * Appointments* Suzanna Gibson DO - 05/10/2018 9:11 AM P[employer]IONS RETIREMENT PLAN SPECIALIST You will need to follow-up with Dr. Lan in hernia clinic as an outpatient [phone] (Surgery) IONS RETIREMENT PLAN SPECIALIST documented in this encounter Medications at Time [...] Nazia Barney RN - 05/10/2018 12:33 PM P[employer]IONS RETIREMENT PLAN SPECIALIST Discharge education printed and reviewed with pt. Pt states understanding and re adiness for discharge. Medications with pt, IV removed, pt awaiting hospital tra nsport at this time. IONS RETIREMENT PLAN SPECIALIST * Suzanna Gibson DO - 05/10/2018 8:18 AM PENSIONS RETIREMENT PLAN SPECIALIST Discharge Day Progress Note Name: Lucrecia Tomas [...] w/ home health today. Suzanna Gibson Pager: [phone] >35 minutes in [id number] time spent with patient, patient/family counseling, coordination [...] daily with meals. Commonly known as: GLUCOPHAGE IONS RETIREMENT PLAN SPECIALIST * Mariela Balderrama RN - 05/09/2018 10:19 AM PENSIONS RETIREMENT PLAN SPECIALIST 1015 patient off unit to Echo 1120 patient back on unit IONS RETIREMENT PLAN SPECIALIST * Alize Schmitt PHARMD - 05/09/2018 9:51 AM P[employer]IONS RETIREMENT PLAN SPECIALIST Pharmacy Vancomycin Note Subjective: Lucrecia Tomas is [...] therapy as needed. Alize Schmitt PHARMD 05/09/2018 [employer] RETIREMENT PLAN SPECIALIST * John Chin MD - 05/09/2018 9:11 AM PENSIONS RETIREMENT PLAN SPECIALIST Acute care surgery will sign off at this time. Please call [phone] with fur ther questions, changes or concerns. --Patient to continue to follow-up in clinic for outpatient management-- John Chin MD [phone] IONS RETIREMENT PLAN SPECIALIST * Becca Rea RN - 05/08/2018 11:07 PM PENSIONS RETIREMENT PLAN SPECIALIST Patient arrived to room # (4952*) via cart accompanied by transport. Patient tra [...] Doc Flowsheet for additional wound details. INTERVENTIONS: IONS RETIREMENT PLAN SPECIALIST documented in this encounter H&P Notes * Suzanna Gibson DO - 05/09/2018 12:46 AM P[employer]IONS RETIREMENT PLAN SPECIALIST Admission History and Physical Examination Name: Lucrecia Tomas Admission Date: 05/08/2018 Assessment/Plan: Principal Problem: Chronic abdominal wound infection Active Problems: Syncope Hypothyroidism Morbid obesity (HCC) Hypertension 62-year-old female with hypothyroidism, type 2 diabetes, hypertension, and morbi d obesity who presented to [facility] after syncopal episode, in the [...] to inpatient Alirio Robles MD Hospitalist Pager [phone] ATTESTATION I personally performed the portillo portions [...] Date: 05/09/2018 Med-private Team N Team Pager [phone] __ Primary Care Physician: No Pcp, Na Chief Complaint: Syncope, abdominal wound History of Present Illness: Lucrecia Tomas is a 62 y.o. female with a history of ty pe 2 diabetes, hypertension, hyperlipidemia, hypothyroidism, and multiple abdomi nal surgeries for infected mesh after hernia repair, who was transferred to [facility] after syncopal episode and due to concern for recurren t abdominal infection. She has undergone multiple surgeries for infected mesh over the past few years, the last of which took place at [facility] in December 2017. Previo us surgeries had been at [facility] in [place], [place]. After the surgery i december, she [...] esponsive for approximately 3 minutes. She had shoeshiner to chair and had shaking of her [...] the 80s. She was then taken to [facility], who recommended transfer to for f urther [...] by unit staff. Edil Robles MD Pager [phone] IONS RETIREMENT PLAN SPECIALIST documented in this encounter Consult Notes * Kelley Centeno - 05/10/2018 12:51 PM PENSIONS RETIREMENT PLAN SPECIALIST Associated Order(s): CONSULT DIETITIAN CLINICAL NUTRITION Clinical [...] meal Kelley Centeno, MS, RD, LD Pager: [phone] Office: [phone] IONS RETIREMENT PLAN SPECIALIST * Cammie Duckworth RN - 05/09/2018 12:13 PM P[employer]IONS RETIREMENT PLAN SPECIALIST Associated Order(s): CONSULT WOUND/OSTOMY TEAM NURSE Wound [...] Ostomy Nursing Consult Service Hyperbaric Medicine Office: [phone] Pager: [phone] IONS RETIREMENT PLAN SPECIALIST * Lino Benjamin MD - 05/09/2018 9:00 AM P[employer] RETIREMENT PLAN SPECIALIST Associated Order(s): CONSULT INFECTIOUS DISEASES PHYSICIAN Infectious Diseases Initial Consult Today's Date: 05/09/2018 Admission Date: 05/08/2018 Reason for this consultation: Abdominal wall mesh infection Consult type: Co-Management w/Signed Orders Assessment: 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 Conv erted laparoscopic -> open. Prolonged lysis of adhesions. No enterotomy noted, healthy appearing bowel. 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 Benjamin [...] repair. Last repair was in 12/2017 in [place]- op report noted severe amount of [...] harge. She returned to the hospital at [facility] in [place] - wound s wab obtained on 02/03, [...] home wound care since . Presented to [facility] yesterday - she was attempting to get out of the chair, lost consciousness, was unresponsive x3 minutes. Had some shaking of her arms while holding on to the chair. No post-ictal confusion. No bowel/blader incontinence. She was hypotensive in the ED, improved with fluid resuscitation. Mild leukocytosis of 12.4K, no tachycardia. CT head negative. Transferred to [facility] for further management. On arrival to , [...] a tiny abscess. 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, Scant growth MRSA 05/08 BC x2 - [...] History Marital status/area of residence: Lives in [place], son at home Travel history: No travel, lived in [place] [facility] all her life Animal, bird exposures: 2 [...] 05/08 CT abd/pelvis Narinder Ward DO Pager [phone] Infectious Diseases IONS RETIREMENT PLAN SPECIALIST * GuestLudy MD - 05/09/2018 2:58 AM PENSIONS RETIREMENT PLAN SPECIALIST Associated Order(s): CONSULT ACUTE CARE/INPATIENT GENERAL SURGERY PHYSICIAN [facility] Acute/Inpatient Surgery Consult Patient: Lucrecia Tomas, [id number] Admission Date: 05/08/2018, LOS: 0 days Admission [...] Please obtain outside hospital surgical records from [facility] for most recent operation in [...] minutes. She was hypotensive upon arrival to [facility] and was given 1L b olus and [...] (Results Pending) Ludy Jo MD Personal Pager: [phone] Team Pager: #[phone] IONS RETIREMENT PLAN SPECIALIST Associated attestation - Gabino Schuster MD - 05/09/2018 6:35 AM PENSIONS RETIREMENT PLAN SPECIALIST ATTESTATION I personally performed the portillo portions [...] Mitra Lizarraga RN - 05/10/2018 10:43 AM PENSIONS RETIREMENT PLAN SPECIALIST Case Management Progress Note NAME:Lucrecia Tomas : 6 AGE: 62 y.o. ADMISSION DATE: 05/08/2018 DAYS ADMITTED: LOS: 1 day Todays Date: 05/10/2018 Plan: Discharge home today with resumption of home health through [facility] ( ; fax: [phone]) for wound care, PT, and O T. [...] 40. HOME HEALTH: Spoke with intake at [facility] who states pt only had RN [...] #1: Daughter Fatoumata Arteaga will transp ort [phone] ? Next Level of Care (Acute Psych discharges only) ? Discharge Disposition Durable Medical Equipment No service has been selected for the patient. [facility] Destination No service has been selected for the patient. Home Care No service has been selected for the patient. Dialysis/Infusion No service has been selected for the patient. BONITA Wells RN Nurse Foiling Machine Adjuster Voalte Text Phone: [phone] Pager: [phone] IONS RETIREMENT PLAN SPECIALIST * Case Mgmt DC Plan - Gissel Brown LCSW - 05/09/2018 1:26 PM PENSIONS RETIREMENT PLAN SPECIALIST Case Management Admission Assessment NAME:Lucrecia Tomas :1955 AGE: 62 y.o. ADMISSION DATE: 05/08/2018 DAYS ADMITTED: LOS: 0 days Todays Date: 05/09/2018 Source of Information: Reviewed EMR, met with pt and family members in the room, discussed pt at [facility]. Per Chart, pt is a 62-year-old female with hypothyroidism, type 2 diabetes, h ypertension, and morbid obesity who presented to [facility] after syn copal episode, in the setting [...] spitalized. She sees Dr. Schuster at the [facility] in [place] and fills her medications at the clinic. Pt reports she is independent in her ADLs. However, due to wound, has not be en able to garden and be as busy as she would like to be. Pt utilizes a walker at home. Pt has been utilizing [facility] for Wound Care and would like [...] will transport home. Patient Address/Phone [address] [phone] (home) Emergency Contact Extended Emergency Contact Information [...] #1: Daughter Fatoumata Arteaga will transp ort [phone] Expected Discharge Date Expected Discharge Date: 05/11/18 [...] Who provides assistance or could if needed?: ([facility] agency assisting with wo und care.) ? Level of Function Prior level of function: Independent ? Cognitive Abilities Cognitive Abilities: Alert and Oriented, Engages in problem solving and planning Financial Resources ? Coverage Primary Insurance: Medicare Replacement([employer] Medicare) Additional Coverage: None(Pt does not have insurance but gets medications filled at the [facility] in [place], [place]. Medications are affordable t here.) ? Source of Income Source Of Income: SSDI ? Financial Assistance Needed? None reported. Psychosocial Needs ? Mental Health Mental Health History: In the past Mental Health Provider: [facility] in [facility] Mental Health Symptoms: (Pt reports history [...] Agency name: [facility] Would patient use this agency again?: Yes [...] ? Outpatient Therapy PT: No OT: No STEP FINISHER: No ? Shelter Facility/Residential SNF: No NH: No ? Inpatient Rehab IPR: No ? Long-Term Acute Care Hospital LTACH: No ? Acute Hospital Stay Acute Hospital Stay: In the past Was patient's stay within the last 30 days?: No TAMMI Erickson [id number] IONS RETIREMENT PLAN SPECIALIST * Care Plan - Mariela Balderrama RN - 05/09/2018 1:17 PM PENSIONS RETIREMENT PLAN SPECIALIST Problem: Discharge Planning Goal: Participation in plan of care Outcome: Goal Ongoing Patient will discharge when antibiotic regiment made. Problem: Infection, Risk of Goal: Absence of infection Outcome: Goal Ongoing Patient seen by wound team. Wound dressing changes now ordered. Patient receivin g antibiotics. Problem: Falls, High Risk of Goal: Absence of falls-Adult Patient Outcome: Goal Ongoing High fall risk bundle in place. IONS RETIREMENT PLAN SPECIALIST * Patient Education - Mariela Balderrama RN - 05/09/2018 8:50 AM PENSIONS RETIREMENT PLAN SPECIALIST Medication Education Lucrecia Tomas accepted counseling and [...] Continue to address: indications Mariela Balderrama RN IONS RETIREMENT PLAN SPECIALIST * Care Coordination-Inpatient - Rachel Garcia MD - 05/08/2018 8:59 PM PENSIONS RETIREMENT PLAN SPECIALIST Brief Transfer Accept Note : Requesting facility: [facility] emergency room Reason for request for transfer; syncope and infected abdominal wound; surgeon t here requesting higher level of care Brief Hx: Per Transfer RN-- Patient is a 62-year-old female who was brought to [facility] emergency room after syncope with possible seizure [...] abdominal hernia repair surgeries done at outside [facility]. Per report, she has had an infected surgical abdominal wound since 2017 and has been treated for MRSA infection with Zyvox and Bactrim. There is mesh exposed and the wound is apparently foul-smelling. The surgeon at [facility] requested a higher level of care. [...] the verbal repo rt obtained from the [facility] Transfer team. They will need to be verified on patient 's arrival and subsequent assessment/plan formulated based on that IONS RETIREMENT PLAN SPECIALIST documented in this encounter Plan of Treatment [...] Associated Diagnosis POC GLUCOSE 05/10/2018 8:31 AM PENSIONS RETIREMENT PLAN SPECIALIST CBC AND DIFF Routine 05/10/2018 6:39 AM PENSIONS RETIREMENT PLAN SPECIALIST COMPREHENSIVE METABOLIC Routine 05/10/2018 PANEL 6:39 AM PENSIONS RETIREMENT PLAN SPECIALIST POC GLUCOSE 05/10/2018 5:38 AM PENSIONS RETIREMENT PLAN SPECIALIST POC GLUCOSE 05/09/2018 10:53 PM PENSIONS RETIREMENT PLAN SPECIALIST POC GLUCOSE 05/09/2018 6:23 PM PENSIONS RETIREMENT PLAN SPECIALIST POC GLUCOSE 05/09/2018 3:40 PM PENSIONS RETIREMENT PLAN SPECIALIST POC GLUCOSE 05/09/2018 12:07 PM PENSIONS RETIREMENT PLAN SPECIALIST 2-D + DOPPLER Routine 05/09/2018 ECHOCARDIOGRAM 11:39 AM PENSIONS RETIREMENT PLAN SPECIALIST POC GLUCOSE 05/09/2018 8:09 AM PENSIONS RETIREMENT PLAN SPECIALIST UA REFLEX CULTURE LABEL Routine 05/09/2018 8:02 AM PENSIONS RETIREMENT PLAN SPECIALIST URINALYSIS MICROSCOPIC Routine 05/09/2018 REFLEX TO CULTURE 8:02 AM PENSIONS RETIREMENT PLAN SPECIALIST URINALYSIS DIPSTICK Routine 05/09/2018 REFLEX TO CULTURE 8:02 AM PENSIONS RETIREMENT PLAN SPECIALIST CT ABD/PELV W CONTRAST MP 05/09/2018 5:56 AM PENSIONS RETIREMENT PLAN SPECIALIST CULTURE-BLOOD Routine 05/09/2018 W/SENSITIVITY 1:17 AM PENSIONS RETIREMENT PLAN SPECIALIST TSH WITH FREE T4 REFLEX Routine 05/09/2018 1:10 AM PENSIONS RETIREMENT PLAN SPECIALIST CULTURE-BLOOD Routine 05/09/2018 W/SENSITIVITY 1:10 AM PENSIONS RETIREMENT PLAN SPECIALIST PTT (APTT) Routine 05/09/2018 1:10 AM PENSIONS RETIREMENT PLAN SPECIALIST PROTIME INR (PT) Routine 05/09/2018 1:10 AM PENSIONS RETIREMENT PLAN SPECIALIST CBC AND DIFF Routine 05/09/2018 1:10 AM PENSIONS RETIREMENT PLAN SPECIALIST C REACTIVE PROTEIN (CRP) Routine 05/09/2018 1:10 AM PENSIONS RETIREMENT PLAN SPECIALIST BNP (B-TYPE NATRIURETIC Routine 05/09/2018 PEPTI) 1:10 AM PENSIONS RETIREMENT PLAN SPECIALIST MAGNESIUM Routine 05/09/2018 1:10 AM PENSIONS RETIREMENT PLAN SPECIALIST VANCOMYCIN TROUGH 05/09/2018 1:10 AM PENSIONS RETIREMENT PLAN SPECIALIST COMPREHENSIVE METABOLIC Routine 05/09/2018 PANEL 1:10 AM PENSIONS RETIREMENT PLAN SPECIALIST ECG 12-LEAD Routine 05/09/2018 12:44 AM PENSIONS RETIREMENT PLAN SPECIALIST POC GLUCOSE 05/09/2018 12:25 AM PENSIONS RETIREMENT PLAN SPECIALIST CT HEAD EXTERNAL IMAGING Routine 05/08/2018 Diagnosis unknown 3:35 PM PENSIONS RETIREMENT PLAN SPECIALIST GENERAL RAD CHEST Routine 05/08/2018 Diagnosis unknown EXTERNAL IMAGING 2:35 PM PENSIONS RETIREMENT PLAN SPECIALIST TELEMETRY STRIPS-SCAN 05/08/2018 12:00 AM PENSIONS RETIREMENT PLAN SPECIALIST ECG-SCAN 05/08/2018 12:00 AM PENSIONS RETIREMENT PLAN SPECIALIST documented in this encounter Results * POC GLUCOSE (05/10/2018 8:31 AM PENSIONS RETIREMENT PLAN SPECIALIST) Glucose, POC 116 (H) 70 - 100 MG/DL [facility]IN [facility] Specimen Performing Organization Address [facility] Phone Number [facility] [address] [place] [address] * COMPREHENSIVE METABOLIC PANEL (05/10/2018 6:39 AM PENSIONS RETIREMENT PLAN SPECIALIST) Sodium 140 137 - 147 MMOL/L [facility] [...] >60 >60 mL/min [facility]IN [facility] Comment: [place] The eGFR is not validated for use in drug dosing adjustments.Continue to use estimated creatinine clearance per dosing reference text.Please contact the Clinical Pharmacist for questions. eGFR >60 >60 mL/min [facility] [place] Comment: The eGFR is not validated for use in drug dosing adjustments.Continue to use estimated creatinine clearance per dosing reference text.Please contact the Clinical Pharmacist for questions. Specimen Blood Performing Organization Address [facility] Phone Number [facility] [address] [place] [address] * CBC AND DIFF (05/10/2018 6:39 AM PENSIONS RETIREMENT PLAN SPECIALIST) White Blood 6.2 4.5 - 11.0 K/UL [...] Address City/State/Zipcode Phone Number MAIN LAB [address] [place] [address] * POC GLUCOSE (05/10/2018 5:38 AM PENSIONS RETIREMENT PLAN SPECIALIST) Glucose, POC 121 (H) 70 - 100 MG/DL MAIN LAB Specimen Performing Organization Address City/State/Zipcode Phone Number MAIN LAB [address] [place] [address] * POC GLUCOSE (05/09/2018 10:53 PM PENSIONS RETIREMENT PLAN SPECIALIST) Glucose, POC 99 70 - 100 MG/DL MAIN LAB Specimen Performing Organization Address City/State/Zipcode Phone Number MAIN LAB [address] [place] [address] * POC GLUCOSE (05/09/2018 6:23 PM PENSIONS RETIREMENT PLAN SPECIALIST) Glucose, POC 76 70 - 100 MG/DL [facility] Specimen Performing Organization Address City/[facility] Phone Number MAIN LAB [address] [place] [address] * POC GLUCOSE (05/09/2018 3:40 PM PENSIONS RETIREMENT PLAN SPECIALIST) Glucose, POC 117 (H) 70 - 100 MG/DL [facility] Specimen Performing Organization Address City/[facility] Phone Number MAIN LAB [address] [place] [address] * POC GLUCOSE (05/09/2018 12:07 PM PENSIONS RETIREMENT PLAN SPECIALIST) Glucose, POC 108 (H) 70 - 100 MG/DL MAIN LAB Specimen Performing Organization Address [facility] Phone Number [facility] [address] [place] [address] * 2-D + DOPPLER ECHOCARDIOGRAM (05/09/2018 11:39 AM PENSIONS RETIREMENT PLAN SPECIALIST) IVS 0.93 0.6 - 0.9 cm OTHER [...] OUTSIDE Systolic TDI S' LAB Cardiology Siemens [id number] OTHER OUTSIDE Ultrasound LAB Machine ECHO EF [...] No ECHO for comparison. Performing Organization Address City/[facility] Phone Number OTHER OUTSIDE LAB * POC GLUCOSE (05/09/2018 8:09 AM PENSIONS RETIREMENT PLAN SPECIALIST) Glucose, POC 109 (H) 70 - 100 MG/DL [facility] Specimen Performing Organization Address City/[facility] Phone Number MAIN LAB [address] [place] [address] * UA REFLEX CULTURE LABEL (05/09/2018 8:02 AM PENSIONS RETIREMENT PLAN SPECIALIST) UA Reflex LAB LABEL [facility] Culture Specimen Urine Performing Organization Address [facility] Phone Number MAIN LAB [address] [place] [address] * URINALYSIS MICROSCOPIC REFLEX TO CULTURE (05/09/2018 8:02 AM PENSIONS RETIREMENT PLAN SPECIALIST) WBCs,UA 0-2 0 - 2 /HPF [facility] RBCs,UA NONE 0 - 3 /HPF [facility] Comment,UA Urine submitted for reflex [facility]IN [facility] culture if criteria are met:WBC>10, positive nitrite and/or >=1+ leukocyte esterase. If quantity is not sufficient, an addendum will follow. MucousUA TRACE [facility]IN [facility] Specimen Urine Performing Organization Address [facility] Phone Number MAIN LAB [address] [place] [address] * URINALYSIS DIPSTICK REFLEX TO CULTURE (05/09/2018 8:02 AM PENSIONS RETIREMENT PLAN SPECIALIST) Color,UA STRAW [facility] Turbidity,UA CLEAR CLEAR-CLEAR [facility] Specific 1.030 1.003 - 1.035 [facility]IN LAB [place]-Urine pH,UA 5.0 5.0 - 8.0 [facility] MAIN [...] Address City/State/Zipcode Phone Number [facility] [address] [place] [address] * CT ABD/PELV W CONTRAST (05/09/2018 5:56 AM PENSIONS RETIREMENT PLAN SPECIALIST) Specimen Impressions Performed At 1. Prior ventral [...] Interface, Radiant Results - 05/09/2018 6:35 AM PENSIONS RETIREMENT PLAN SPECIALIST CT ABDOMEN AND PELVIS Clinical Indication: Unknown, [...] RESULTS * CULTURE-BLOOD W/SENSITIVITY (05/09/2018 1:17 AM PENSIONS RETIREMENT PLAN SPECIALIST) Battery Name BLOOD CULTURE [facility] Specimen BLOOD MAIN LAB Description LEFT ANTECUBITAL Special NONE MAIN LAB Requests Culture NO GROWTH 5 DAYS MAIN LAB Report Status FINAL MAIN LAB 05/15/2018 Specimen Blood Performing Organization Address City/[facility]/Zipcode Phone Number MAIN LAB [address] [place] [address] * VANCOMYCIN TROUGH (05/09/2018 1:10 AM PENSIONS RETIREMENT PLAN SPECIALIST) Vancomycin 7.5 (L) 10.0 - 20.0 MCG/ML MAIN LAB Trough Specimen Performing Organization Address City/[facility]/Zipcode Phone Number MAIN LAB [address] [place] [address] * COMPREHENSIVE METABOLIC PANEL (05/09/2018 1:10 AM PENSIONS RETIREMENT PLAN SPECIALIST) Sodium 136 (L) 137 - 147 MMOL/L [...] >60 >60 mL/min [facility] MAIN LAB Comment: [place] The eGFR is not validated for use in drug dosing adjustments.Continue to use estimated creatinine clearance per dosing reference text.Please contact the Clinical Pharmacist for questions. eGFR >60 >60 mL/min [facility] [place] Comment: The eGFR is not validated for use in drug dosing adjustments.Continue to use estimated creatinine clearance per dosing reference text.Please contact the Clinical Pharmacist for questions. Specimen Blood Performing Organization Address City/[facility]/Zipcode Phone Number MAIN LAB [address] [place] [address] * CBC AND DIFF (05/09/2018 1:10 AM PENSIONS RETIREMENT PLAN SPECIALIST) Pathologist [facility] [place] White Blood 9.1 4.5 - 11.0 K/UL [...] Basophil Count Specimen Blood Performing Organization Address City/[facility]/Zipcode Phone Number MAIN LAB [address] [place] [address] * BNP (B-TYPE NATRIURETIC PEPTI) (05/09/2018 1:10 AM P[employer] RETIREMENT PLAN SPECIALIST) Pathologist [facility] [place] B Type 20.0 0 - 100 PG/ML [facility] Natriuretic Peptide Specimen Blood Performing Organization Address City/[facility]/Zipcode Phone Number MAIN LAB [address] [place] [address] * C REACTIVE PROTEIN (CRP) (05/09/2018 1:10 AM PENS[employer] RETIREMENT PLAN SPECIALIST) Pathologist [facility] [place] C-Reactive 0.34 <1.0 MG/DL [facility] Protein Specimen Blood Performing Organization Address City/[facility]/Zipcode Phone Number MAIN LAB [address] [place] [address] * CULTURE-BLOOD W/SENSITIVITY (05/09/2018 1:10 AM PENSIONS RETIREMENT PLAN SPECIALIST) Battery Name BLOOD CULTURE [facility] Specimen BLOOD [facility] Description RIGHT ANTECUBITAL Special NONE [facility] Requests Culture NO GROWTH 5 DAYS [facility] Report Status FINAL [facility] 05/15/2018 Specimen Blood Performing Organization Address City/[facility] [address] [place] [address] * MAGNESIUM (05/09/2018 1:10 AM PENSIONS RETIREMENT PLAN SPECIALIST) Magnesium 1.8 1.6 - 2.6 mg/dL MAIN LAB Specimen Blood Performing Organization Address [facility] Phone Number [facility] [address] [place] [address] * TSH WITH FREE T4 REFLEX (05/09/2018 1:10 AM PENSIONS RETIREMENT PLAN SPECIALIST) TSH 4.860 0.35 - 5.00 MCU/ML MAIN LAB Specimen Blood Performing Organization Address [facility] Phone Number MAIN LAB [address] [place] [address] * PTT (APTT) (05/09/2018 1:10 AM P[employer]IONS RETIREMENT PLAN SPECIALIST) APTT 24.3Comment: NOTE NEW 24.0 - 36.5 SEC MAIN LAB REFERENCE RANGES Specimen Blood Performing Organization Address City/[facility]/Zipcode Phone Number MAIN LAB [address] [place] [address] * PROTIME INR (PT) (05/09/2018 1:10 AM PENSIONS RETIREMENT PLAN SPECIALIST) INR 1.1 0.8 - 1.2 MAIN LAB Specimen Blood Performing Organization Address City/[facility]/Zipcode Phone Number MAIN LAB [address] [place] [address] * POC GLUCOSE (05/09/2018 12:25 AM PENSIONS RETIREMENT PLAN SPECIALIST) Glucose, POC 102 (H) 70 - 100 MG/DL MAIN LAB Specimen Performing Organization Address City/[facility]/Zipcode Phone Number [facility] [address] [place] [address] * CT HEAD EXTERNAL IMAGING (05/08/2018 3:35 PM PENSIONS RETIREMENT PLAN SPECIALIST) Specimen Narrative Performed At This order has been auto finalized and does not contain a result. * GENERAL RAD CHEST EXTERNAL IMAGING (05/08/2018 2:35 PM PENSIONS RETIREMENT PLAN SPECIALIST) Specimen Narrative Performed At This order has been auto finalized and does not contain a result. * TELEMETRY STRIPS-SCAN (05/08/2018 12:00 AM P[employer] RETIREMENT PLAN SPECIALIST) Narrative Performed At Ordered by an unspecified provider. * ECG-SCAN (05/08/2018 12:00 AM PENS[employer] RETIREMENT PLAN SPECIALIST) Narrative Performed At Ordered by an unspecified [...] Medication Order MAR Action 05/10/2018 9:22 AM PENSIONS RETIREMENT PLAN SPECIALIST 40 mg Ankle, Right enoxaparin (LOVENOX) syringe 40 mg Given 40 mg, Subcutaneous, TWICE DAILY, First dose on Yeal 05/09/18 at 0900, Until Discontinued, For patients undergoing surgery: Consult physician in advance -- enoxaparin is an anticoagulant and may need to be held for 12hr prior to surgery or invasive procedures. NOTE: This is a HIGH ALERT Medication., 40 mg Arm, Left Given 05/09/2018 9:42 PM PENSIONS RETIREMENT PLAN SPECIALIST 40 mg Abdominal Tissue Given 05/09/2018 8:01 AM PENSIONS RETIREMENT PLAN SPECIALIST 05/09/2018 6:00 AM PENSIONS RETIREMENT PLAN SPECIALIST 100 mL iohexol (OMNIPAQUE-350) 350 mg/mL Given injection 100 mL 100 mL, Intravenous, ONCE, 1 dose, Yael 05/09/18 at 0600, NOTE: This is a HIGH ALERT Medication., 05/09/2018 1:38 AM PENSIONS RETIREMENT PLAN SPECIALIST 1,000 mL 125 mL/hr lactated ringers infusion Given - New 1,000 mL, 1,000 mL, Intravenous, at 125 Bag mL/hr, ONCE, 1 dose, Yael 05/09/18 at 0045 05/10/2018 6:34 AM PENSIONS RETIREMENT PLAN SPECIALIST 200 mcg levothyroxine (SYNTHROID) tablet 200 mcg Given 200 mcg, Oral, DAILY, First dose on Yael 05/09/18 at 0700, Until Discontinued, Give 1 hour before a meal. If patient is receiving tube feedings, hold tube feed 1hr before and 1hr after dose., 200 mcg Given 05/09/2018 7:55 AM PENSIONS RETIREMENT PLAN SPECIALIST 05/09/2018 11:40 AM PENSIONS RETIREMENT PLAN SPECIALIST 2 Diluted mL perflutren lipid microspheres (DEFINITY) Given injection 1-20 Diluted mL 1-20 Diluted mL, Intravenous, ONCE, 1 dose, Yael 05/09/18 at 1145, NOTE: This is a HIGH ALERT Medication., MAC Procedure Area Only - Medications 05/09/2018 12:48 PM PENSIONS RETIREMENT PLAN SPECIALIST 3.375 g 200 mL/hr piperacillin/tazobactam (ZOSYN) 3.375 g Given in sodium chloride 0.9% (NS) 100 mL IVPB (MB+) 3.375 g, Intravenous, at 200 mL/hr, EVERY 6 HOURS, First dose on Yael 05/09/18 at 0130, Until Discontinued 3.375 g 200 mL/hr Given 05/09/2018 7:55 AM PENSIONS RETIREMENT PLAN SPECIALIST 3.375 g 200 mL/hr Given 05/09/2018 1:38 AM PENSIONS RETIREMENT PLAN SPECIALIST 05/09/2018 9:43 PM PENSIONS RETIREMENT PLAN SPECIALIST 20 mg pravastatin (PRAVACHOL) tablet 20 mg Given 20 mg, Oral, AT BEDTIME DAILY, First dose on Yael 05/09/18 at 0100, Until Discontinued 20 mg Given 05/09/2018 1:38 AM PENSIONS RETIREMENT PLAN SPECIALIST 05/09/2018 6:00 AM PENSIONS RETIREMENT PLAN SPECIALIST 50 mL sodium chloride PF 0.9% injection 50 mL Given 50 mL, Intravenous, ONCE, 1 dose, Yael 05/09/18 at 0600, DO NOT SEND this medication unless it is requested. This med is usually available in floor stock., Intra-procedure (IR) 05/10/2018 9:23 AM PENSIONS RETIREMENT PLAN SPECIALIST sodium hypochlorite (DAKIN'S 1/2 Given STRENGTH) 0.25 % topical solution Irrigation, TWICE DAILY, First dose on Yael 05/09/18 at 2100, Until Discontinued Given 05/09/2018 9:47 PM PENSIONS RETIREMENT PLAN SPECIALIST 05/09/2018 3:19 AM PENSIONS RETIREMENT PLAN SPECIALIST 1,750 mg 357 mL/hr vancomycin (VANCOCIN) 1,750 [...]
--- OUTSIDE RECORDS SUMMARY | 2018-10-08 15:44 | XMS REPORT | Encounter Summary ---
Author Author [facility] Organization [facility] Address Unknown Phone Unavailable Care Team Providers Care Autoglazier Name Role Phone No Pcp, Na PCP Unavailable Encounter Details Care Team Description Date Type Department 05/08/2018 Hospital [facility] [address] [address] Social History Date Tobacco Use [...] 05/08/2018 Diagnosis unknown EXTERNAL IMAGING 2:35 PM CLOTHES DESIGNER documented in this encounter Results * GENERAL RAD CHEST EXTERNAL IMAGING (05/08/2018 2:35 PM CLOTHES DESIGNER) Specimen Narrative Performed At This order has been auto finalized and does not contain a result. documented in this encounter Visit Diagnoses Not on filedocumented in this encounter
--- NOTE | 2018-10-08 15:55 | NUR ---
CHANDRAKANT TOMAS admitted to room CU9-1, with an admitting diagnosis of sepsis, on 10/08/18 from AM via cart, accompanied by staff.CHANDRAKANT TOMAS introduced to surroundings, call light, bed controls, phone, TV, temperature control, lights, meal times, smoking policy, visitor policy, side rail policy, bathrooms and showers. Patient Rights given to patient in the handbook. CHANDRAKANT TOMAS verbalizes understanding that [facility] is not responsible for the loss or damage to any personal effects or valuables that are kept in the patients posession during their hospitalization. The following Patient Care Plans were discussed with the pt and family: Discharge Planning. CHANDRAKANT TOMAS verbalizes understanding of Interdisciplinary Patient Education. Patient and/or family were informed about the Rapid Response Team and its purpose.
--- NOTE | 2018-10-08 16:13 | Pulmonary Consultation ---
History of Present Illness History of Present Illness Date of Consultation 10/08/18 16:09 Date of Admission Allergies and Home Medications Allergies Coded Allergies: linezolid (Verified Allergy, Severe, swelling to tongue, skin rash, 09/13/18) Home Medications Ceftriaxone Sodium 1 Gm Vial, 1 GM IJ DAILY Prescribed by: ARCHIE ESPINO on 09/17/18 1057 Fluticasone Propionate 9.9 Ml [place].susp, 2 SPRAY NS DAILY PRN for ALLERGIES, (Reported) Levothyroxine Sodium 25 Mcg Tablet, 25 MCG PO DAILY, (Reported) LAST FILLED #30 05-27-18 Levothyroxine Sodium 200 Mcg Tablet, 200 MCG PO DAILY, (Reported) LAST FILLED #30 05-27-18 Past Iowzxws-Oeveqc-Pjrexs Hx Past Med/Social Hx: Reviewed and Corrections made Patient Social History Alcohol Use: Denies Use Recreational Drug Use: No Smoking Status: Never a Smoker 2nd Hand Smoke Exposure: No Recent Foreign Travel: No Contact w/Someone Who Travel: No Recent Infectious Disease Expo: No Recent Hopitalizations: Yes Physical Abuse: No Sexual Abuse: No Mistreated: No Fear: No Immunizations Up To Date Tetanus Booster (TDap): Unknown Date of Pneumonia Vaccine: Apr 09, 2018 Date of Influenza Vaccine: Jan 07, 2018 Seasonal Allergies Seasonal Allergies: No Past Medical History Surgeries: Yes (TUBAL, 1 OPEN EXPLORATORY, 6 HERNIA REPAIRS , I &D OF ABD WOUND, CARPAL POLINA) Abdominal Respiratory: No Cardiac: Yes Hypertension Neurological: No : No Reproductive Disorders: No Genitourinary: No Gastrointestinal: Yes (enterocutaneous FISTULA, HERNIA WITH MESH, OPEN ABD WOUND TO CENTER OF ABD) Hepatitis Musculoskeletal: Yes Arthritis Endocrine: Yes Hypothyroidsim HEENT: No Cancer: No Psychosocial: No Integumentary: No Blood Disorders: No Family Medical History Heart Disease, Renal Disease Sepsis Event Evaluation Height, Weight, BMI Height: 5'3.00" Weight: 232lbs. 0.0oz. 105.752919ru; 41.0 BMI Method:Actual Exam Exam Vital Signs Date Time Temp Pulse Resp B/P (MAP) Pulse Ox O2 Delivery O2 Flow Rate FiO2 10/08/18 14:50 100.4 69 14 122/67 97 3.00 10/08/18 13:45 100.4 69 14 108/58 97 3.00 10/08/18 13:25 100.5 86 16 104/63 94 Nasal Cannula 10/08/18 13:03 98.7 92 20 101/54 95 Nasal Cannula 3.00 10/08/18 12:42 98.2 98 18 83/42 94 Nasal Cannula 3.00 10/08/18 11:23 94 Room Air 10/08/18 10:47 100.5 106 18 82/53 (63) 96 Nasal Cannula Height & Weight Height: 5'3.00" Weight: 232lbs. 0.0oz. 105.494796oy; 41.0 BMI Method:Actual General Appearance: No Apparent Distress, WD/WN HEENT: PERRL/EOMI, Normal ENT Inspection, Other (oropharynx very dry) Neck: Normal Inspection Respiratory: Lungs Clear, Normal Breath Sounds, No Accessory Muscle Use, No Respiratory Distress Cardiovascular: Regular Rate, Rhythm, No Edema, Tachycardia Capillary Refill: Less Than 3 Seconds Extremity: Normal Inspection, No Pedal Edema Neurologic/Psychiatric: Alert, Oriented x3, No Motor/Sensory Deficits, Normal Mood/Affect, production coordinator II-XII Norm as Tested Results Lab Laboratory Tests 10/08/18 10:57 Assessment/Plan Assessment/Plan Septic shock -Severe sepsis protocol -IVF -Change Abx to Merrem, Vanco and Eraxis (pt was getting TPN as out pt) -Levophed Metabolic lactic acidosis -IVF Urinary tract infection Enterocutaneous fistula -Dr. Hallman has been following pt -Pt has been NPO and has been getting TPN via PICC line History of ventral hernia repair JESSICA BATEMAN DO Oct 08, 2018 16:13
[2018-10-08] MEDS ORDERED: NOREPINEPHRINE 4 MG in NS (IVPB) 250 ML IV SCH (16:17)
[2018-10-08] MEDS ORDERED: NS IV 1000 ML 1,000 ML IV SCH (16:17)
[2018-10-08] MEDS ORDERED: VASOPRESSIN INJECTION 20 UNIT in NS (IVPB) 100 ML IV SCH (16:20)
[2018-10-08] MEDS ORDERED: NS IV ONE (16:30)
[2018-10-08] MEDS ORDERED: VANCOMYCIN 1,750 MG/NS 500 ML IVPB IV NR ×2 (16:30)
[2018-10-08] MEDS ORDERED: ONDANSETRON 4 MG/2 ML (SDV) Z0FRAN IV PRN (16:30)
[2018-10-08] MEDS ORDERED: ANIDULAFUNGIN 200 MG/NS 250 ML IVPB IV NR ×2 (16:30)
[2018-10-08] MEDS: LACTATED RINGERS 1,000 ML IV SCH ×2 (16:31→22:35)
[2018-10-08 16:56] LABS: BASOPHILS # (AUTO) 0.1 10^3/uL (0.0-0.1); BASOPHILS % (AUTO) 1 % (0-10); EOSINOPHILS % (AUTO) 0 % (0-10); HEMATOCRIT 37 % (35-52); HEMOGLOBIN 12.5 G/DL (11.5-16.0); LYMPHOCYTES # (AUTO) 1.8 X 10^3 (1.0-4.0); LYMPHOCYTES % (AUTO) 13 % (12-44); MEAN CORPUSCULAR HEMOGLOBIN 31 PG (25-34); MEAN CORPUSCULAR HGB CONC 34 G/DL (32-36); MEAN CORPUSCULAR VOLUME 93 FL (80-99); MEAN PLATELET VOLUME 11.9 FL (7.4-10.4); MONOCYTES # (AUTO) 1.3 X 10^3 (0.0-1.0); MONOCYTES % (AUTO) 10 % (0-12); NEUTROPHILS % (AUTO) 76 % (42-75); PLATELET COUNT 168 10^3/uL (130-400); RED CELL DISTRIBUTION WIDTH 19.2 % (10.0-14.5); WHITE BLOOD COUNT 13.1 10^3/uL (4.3-11.0)
--- NOTE | 2018-10-08 16:56 | Progress Note-Post Operative ---
Post-Operative Progess Note Surgeon (s)/Drier Attendant (s) Surgeon ANGELINA MARQUES DO Drier Attendant: na Pre-Operative Diagnosis septic shock Post-Operative Diagnosis same Procedure & Operative Findings Date of Procedure 10/08/18 Procedure Performed/Findings right IJ u/s guided central line placement Anesthesia Type local 1 % lidocaine Estimated Blood Loss Estimated blood loss (mL): min Specimens/Packing Specimens Removed na ANGELINA MARQUES DO Oct 08, 2018 16:56
[2018-10-08 17:17] LABS: ALBUMIN 2.3 GM/DL (3.2-4.5); BILIRUBIN,TOTAL 1.4 MG/DL (0.1-1.0); CALCIUM 7.2 MG/DL (8.5-10.1); CREATININE SERUM 1.45 MG/DL (0.60-1.30); POTASSIUM 3.6 MMOL/L (3.6-5.0); TOTAL PROTEIN 6.7 GM/DL (6.4-8.2)
[2018-10-08] MEDS: NOREPINEPHRINE 8 MG in NS (IVPB) 250 ML IV SCH ×2 (18:14→22:28)
[2018-10-08] MEDS: HYDROCORTISONE 100 MG/2 ML (Solu-CORTEF) VIAL IV SCH ×2 (18:22→23:18)
--- NOTE | 2018-10-08 21:37 | Consultation (Surgery) ---
History of Present Illness History of Present Illness Patient Consulted On(chip/time) 10/08/18 21:29 Time Seen by Provider: 18:32 History of Present Illness Surgery asked to consult regarding Sepsis, Abdominal hernia and Fistula. HPI per ED: TO ED PER [facility] WHO REPORT THEY WAS CALLED FOR WEAKNESS. AND HERNIA RUPTURE. PATIENT IS GETTING TPN AT HOME.HERNIA APPEARS TO BE THROUGH ABD WALL PATIENT REPORTS IT HAS BEEN THAT WAY FOR AWHILE. 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 Family notes there was a large amount of bloody fluid in the collection sac that usually covers the fistula. There is also a large amount of bloody fluid on the floor. The fistula normally drains a Mancos-appearing fluid. On exam the patient had greenish purulent material pooled in the fistula site. Patient is alert and oriented but mentation is dulled. She was recently admitted to this facility September 13 for urinary tract infection. Patient is suspected to have sepsis from urinary tract infection or the fistula site. She is not actively bleeding on arrival. Patient has multiple risk factors for sepsis including TPN, diabetes and open fistula. She has a referral to [facility] for surgical repair. Surgery has been delayed to date until patient can achieve weight loss to 200 pounds. When I saw pt in the ICU her BP was finally stable; however, she was also on Levophed and Vasopressor. Her main complaint was just of being tired. She states she was tired for past 4-5 days and abdominal pain only started today. This is the first time it has bled like this. She had no abdominal pain when I saw her in the ICU. Allergies and Home Medications Allergies Coded Allergies: linezolid (Verified Allergy, Severe, swelling to tongue, skin rash, 09/13/18) Home Medications Ceftriaxone Sodium 1 Gm Vial, 1 GM IJ DAILY Prescribed by: ARCHIE ESPINO on 09/17/18 8599 Fluticasone Propionate 9.9 Ml [place].susp, 2 SPRAY NS DAILY PRN for ALLERGIES, (Reported) Levothyroxine Sodium 25 Mcg Tablet, 25 MCG PO DAILY, (Reported) LAST FILLED #30 05-27-18 Levothyroxine Sodium 200 Mcg Tablet, 200 MCG PO DAILY, (Reported) LAST FILLED #30 05-27-18 Patient Home Medication List Home Medication List Reviewed: Yes Past Ouxcmbq-Emocxg-Yfuaaf Hx Patient Social History Alcohol Use: Denies Use Recreational Drug Use: No Smoking Status: Never a Smoker 2nd Hand Smoke Exposure: No Recent Foreign Travel: No Contact w/Someone Who Travel: No Recent Infectious Disease Expo: No Recent Hopitalizations: Yes Immunizations Up To Date Tetanus Booster (TDap): Unknown Date of Pneumonia Vaccine: Apr 09, 2018 Date of Influenza Vaccine: Jan 07, 2018 Seasonal Allergies Seasonal Allergies: No Surgeries History of Surgeries: Yes (TUBAL, 1 OPEN EXPLORATORY, 6 HERNIA REPAIRS , I &D OF ABD WOUND, CARPAL POLINA) Surgeries: Abdominal Respiratory History of Respiratory Disorde: No Cardiovascular History of Cardiac Disorders: Yes Cardiac Disorders: Hypertension Neurological History of Neurological Disord: No Reproductive System : No Hx Reproductive Disorders: No Genitourinary History of Genitourinary Disor: No Gastrointestinal History of Gastrointestinal Di: Yes (enterocutaneous FISTULA, HERNIA WITH MESH, OPEN ABD WOUND TO CENTER OF ABD) Gastrointestinal Disorders: Hepatitis Musculoskeletal History of Musculoskeletal Dis: Yes Musculoskeletal Disorders: Arthritis Endocrine History of Endocrine Disorders: Yes Endocrine Disorders: Hypothyroidsim HEENT History of HEENT Disorders: No Cancer History of Cancer: No Psychosocial History of Psychiatric Problem: No Integumentary History of Skin or Integumenta: No Blood Transfusions History of Blood Disorders: No Family Medical History Significant Family History: Heart Disease, Renal Disease Review of Systems-General Constitutional: chills, diaphoresis, dizziness, malaise, weakness EENTM: No blurred vision, No mouth pain, No mouth swelling, No epistaxis Respiratory: No dyspnea on exertion, No hemoptysis, No orthopnea, No short of breath Cardiovascular: No chest pain, No palpitations Gastrointestinal: abdominal pain; No jaundice; nausea; No vomiting Genitourinary: dysuria, frequency; No hematuria Musculoskeletal: back pain, joint pain, joint swelling, muscle pain, muscle stiffness Skin: No change in color, No change in hair/nails Psychiatric/Neurological: No Symptoms Reported; Denies Anxiety; Depressed; Denies Seizure, Denies Tremors Other pt denies any hx of abnormal bleeding or bruising Physical Exam-General Problems Physical Exam Vital Signs Vital Signs - First Documented 10/08/18 10/08/18 10:47 12:42 Temp 100.5 Pulse 106 Resp 18 B/P (MAP) 82/53 (63) Pulse Ox 96 O2 Delivery Nasal Cannula O2 Flow Rate 3.00 Capillary Refill : Less Than 3 Seconds Data Review Labs Laboratory Tests 10/08/18 10:57: White Blood Count 10.7, Red Blood Count 3.78L, Hemoglobin 11.8, Hematocrit 36, Mean Corpuscular Volume 95, Mean Corpuscular Hemoglobin 31, Mean Corpuscular Hemoglobin Concent 33, Red Cell Distribution Width 20.5H, Platelet Count 213, Mean Platelet Volume 11.7H, Neutrophils (%) (Auto) 72, Lymphocytes (%) (Auto) 18, Monocytes (%) (Auto) 9, Eosinophils (%) (Auto) 0, Basophils (%) (Auto) 1, Neutrophils # (Auto) 7.7, Lymphocytes # (Auto) 1.9, Monocytes # (Auto) 1.0, Eosinophils # (Auto) 0.0, Basophils # (Auto) 0.1, Prothrombin Time 16.4H, INR Comment 1.3, Activated Partial Thromboplast Time 32, Sodium Level 135, Potassium Level 3.9, Chloride Level 102, Carbon Dioxide Level 25, Anion Gap 8, Blood Urea Nitrogen 34H, Creatinine 1.46H, Estimat Glomerular Filtration Rate 36, BUN/Creatinine Ratio 23, Glucose Level 172H, Lactic Acid Level 2.17*H, Calcium Level 7.8L, Corrected Calcium 9.0, Magnesium Level 1.8, Total Bilirubin 1.1H, Aspartate Amino Transf (AST/SGOT) 102H, Alanine Aminotransferase (ALT/SGPT) 65H, Alkaline Phosphatase 116, C-Reactive Protein High Sensitivity 6.43H, Total Protein 7.5, Albumin 2.5L 10/08/18 11:30: Glucometer 166H 10/08/18 12:12: Urine Color YELLOW, Urine Clarity VERY CLOUDYH, Urine pH 6.5, Urine Specific [place] 1.015L, Urine Protein 3+H, Urine Glucose (UA) NEGATIVE, Urine Ketones 1+H, Urine Nitrite NEGATIVE, Urine Bilirubin NEGATIVE, Urine Urobilinogen NORMAL, Urine Leukocyte Esterase 3+H, Urine RBC (Auto) 4+H, Urine RBC 10-25H, Urine WBC TNTCH, Urine Crystals NONE, Urine Bacteria LARGEH, Urine Casts NONE, Urine Mucus NEGATIVE, Urine Culture Indicated CULTURE PENDING 10/08/18 13:55: Lactic Acid Level 2.99*H 10/08/18 16:47: White Blood Count 13.1H, Red Blood Count 3.98L, Hemoglobin 12.5, Hematocrit 37, Mean Corpuscular Volume 93, Mean Corpuscular Hemoglobin 31, Mean Corpuscular Hemoglobin Concent 34, Red Cell Distribution Width 19.2H, Platelet Count 168, Mean Platelet Volume 11.9H, Neutrophils (%) (Auto) 76H, Lymphocytes (%) (Auto) 13, Monocytes (%) (Auto) 10, Eosinophils (%) (Auto) 0, Basophils (%) (Auto) 1, Neutrophils # (Auto) 10.0H, Lymphocytes # (Auto) 1.8, Monocytes # (Auto) 1.3H, Eosinophils # (Auto) 0.0, Basophils # (Auto) 0.1, Sodium Level 137, Potassium Level 3.6, Chloride Level 107, Carbon Dioxide Level 20L, Anion Gap 10, Blood Urea Nitrogen 30H, Creatinine 1.45H, Estimat Glomerular Filtration Rate 36, BUN/Creatinine Ratio 21, Glucose Level 229H, Lactic Acid Level 3.27*H, Calcium Level 7.2L, Corrected Calcium 8.6, Total Bilirubin 1.4H, Aspartate Amino Transf (AST/SGOT) 98H, Alanine Aminotransferase (ALT/SGPT) 63H, Alkaline Phosphatase 108, Total Protein 6.7, Albumin 2.3L 10/08/18 19:39: Lactic Acid Level 3.14*H Microbiology 10/08/18 Catheter Tip Culture - Preliminary, Resulted 10/08/18 Gram Stain, Resulted Pending 10/08/18 Wound Culture - Preliminary, Resulted Assessment/Plan Assessment/Plan Assessment/Plan Sepsis Intestinal Bleeding Fistula Recurrent Ventral hernia Plan is to hopefully wean pt of pressors and then get CT abd/pelvis. It is possible that all of her hypotension can be related to the UTI; but will also send the PICC line tip for culture and blood cultures done. I will sit down and talk with pt about possibly doing her abdominal surgery here; since [facility] refuses to call pt back, answer questions or do surgery. I told her to rest and will see her again in the am. I spent over 40 minutes of critical care time with the pt; checking her vitals and the pressors she was on, examining her and talking to her. As well as going through her chart; labs, vitals and radiology. Clinical Quality Measures DVT/VTE Risk/Contraindication: Risk Factor Score Per Nursin RFS Level Per Nursing on Admit: 4+=Very High MANDA STEWART DO Oct 08, 2018 21:37
[2018-10-08] MEDS: MEROPENEM 500 MG/SWFI 10 ML IV PUSH IV SCH ×2 (22:27)
[2018-10-09] VITALS (23 sets, daily range): BP systolic 90–114; BP diastolic 57–87
--- NOTE | 2018-10-09 01:39 | OPERATIVE REPORT ---
DATE OF SERVICE: 10/08/2018 PREOPERATIVE DIAGNOSIS: Septic shock. POSTOPERATIVE DIAGNOSIS: Septic shock. PROCEDURE: Right internal jugular vein ultrasound-guided central line placement. SURGEON: Angelina Solares DO ANESTHESIA: Local 1% lidocaine. ESTIMATED BLOOD LOSS: Minimal. COMPLICATIONS: None. INDICATIONS: The patient is a 63-year-old female who has septic shock. She understands risks and benefits of procedure. Consent was signed in the chart. DESCRIPTION OF PROCEDURE: The patient was prepped and draped in sterile fashion. Timeout was performed. Right internal jugular vein was visualized using ultrasound. Local anesthetic was infiltrated just below the skin. The right internal jugular vein was then accessed using ultrasound guidance, dark nonpulsatile blood was withdrawn. The guidewire was inserted through the needle and the needle was then removed. An 11 blade scalpel was used to make a stab incision at the insertion point. A dilator was then advanced over the wire and removed. The triple lumen catheter was then advanced over the wire and the wire was removed. The catheter was secured in the usual fashion. All ports were accessed and flushed without difficulty. The area was then washed and dried and sterile bandage was applied. The patient tolerated procedure well without any complications. Chest x-ray pending. Job ID: [id number] DocumentID: [id number] Dictated Date: 10/08/2018 16:58:31 Inspecting And Testing Lead Hand Date: 10/09/2018 01:38:20 Dictated By: ANGELINA SOLARES DO
[2018-10-09 03:22] LABS: BASOPHILS # (AUTO) 0.1 10^3/uL (0.0-0.1); BASOPHILS % (AUTO) 1 % (0-10); EOSINOPHILS % (AUTO) 0 % (0-10); HEMATOCRIT 36 % (35-52); HEMOGLOBIN 12.2 G/DL (11.5-16.0); LYMPHOCYTES # (AUTO) 2.2 X 10^3 (1.0-4.0); LYMPHOCYTES % (AUTO) 17 % (12-44); MEAN CORPUSCULAR HEMOGLOBIN 31 PG (25-34); MEAN CORPUSCULAR HGB CONC 34 G/DL (32-36); MEAN CORPUSCULAR VOLUME 93 FL (80-99); MEAN PLATELET VOLUME 12.6 FL (7.4-10.4); MONOCYTES # (AUTO) 0.8 X 10^3 (0.0-1.0); MONOCYTES % (AUTO) 6 % (0-12); NEUTROPHILS # (AUTO) 9.7 X 10^3 (1.8-7.8); NEUTROPHILS % (AUTO) 76 % (42-75); PLATELET COUNT 174 10^3/uL (130-400); RED CELL DISTRIBUTION WIDTH 19.7 % (10.0-14.5); WHITE BLOOD COUNT 12.7 10^3/uL (4.3-11.0)
[2018-10-09 03:35] LABS: CALCIUM 7.6 MG/DL (8.5-10.1); CREATININE SERUM 1.26 MG/DL (0.60-1.30); MAGNESIUM 1.6 MG/DL (1.8-2.4); PHOSPHORUS 3.3 MG/DL (2.3-4.7); POTASSIUM 3.9 MMOL/L (3.6-5.0)
[2018-10-09] MEDS: MEROPENEM 500 MG/SWFI 10 ML IV PUSH IV SCH ×6 (05:11→21:55)
[2018-10-09] MEDS: HYDROCORTISONE 100 MG/2 ML (Solu-CORTEF) VIAL IV SCH ×3 (05:11→18:57)
--- NOTE | 2018-10-09 06:28 | Pulmonary Progress Note ---
Subjective Time Seen by a Provider: 06:47 Subjective/Events-last exam PT still on Levophed. Possible surgery today. PT is now requiring oxy mask Sepsis Event Evaluation Height, Weight, BMI Height: 5'3.00" Weight: 232lbs. 0.0oz. 105.211247kx; 41.1 BMI Method:Actual Focused Exam Lactate Level 10/08/18 16:47: Lactic Acid Level 3.27*H 10/08/18 19:39: Lactic Acid Level 3.14*H 10/09/18 02:57: Lactic Acid Level 2.23*H Lactic Acid Level Laboratory Tests Test 10/09/18 02:57 Lactic Acid Level 2.23 MMOL/L (0.50-2.00) *H Exam Exam Vital Signs Date Time Temp Pulse Resp B/P (MAP) Pulse Ox O2 Delivery O2 Flow Rate FiO2 10/09/18 05:00 84 20 92/57 (69) 91 OxyMask 6.00 10/09/18 04:17 93 Nasal Cannula 6.00 10/09/18 04:05 99.0 10/09/18 04:00 87 19 97/62 (74) 92 OxyMask 6.00 10/09/18 03:00 86 20 91/64 (73) 90 OxyMask 6.00 10/09/18 02:00 91 21 94/63 (73) 91 OxyMask 6.00 10/09/18 01:00 90 18 97/60 (72) 90 OxyMask 6.00 10/09/18 01:00 90 10/09/18 00:51 93 Nasal Cannula 6.00 10/09/18 00:00 96 21 94/59 (71) 93 OxyMask 6.00 10/08/18 23:47 99.0 10/08/18 23:00 100 20 93/58 (70) 90 OxyMask 6.00 10/08/18 22:00 107 23 93/56 (68) 93 OxyMask 6.00 10/08/18 21:03 100 20 93 OxyMask 6.00 10/08/18 21:00 103 21 98/71 (80) 89 Nasal Cannula 4.00 10/08/18 20:10 93 Nasal Cannula 6.00 10/08/18 20:00 98.7 10/08/18 20:00 96 26 110/82 (91) 92 Nasal Cannula 4.00 10/08/18 19:00 93 25 111/89 (96) 91 Nasal Cannula 4.00 10/08/18 19:00 93 10/08/18 17:00 75 15 117/80 (92) 95 Nasal Cannula 4.00 10/08/18 16:23 99.6 10/08/18 16:15 90 9 101/65 (77) 93 Nasal Cannula 4.00 10/08/18 16:13 100.4 69 14 122/67 (85) 97 Nasal Cannula 3.00 10/08/18 16:06 97 10/08/18 14:50 100.4 69 14 122/67 97 3.00 10/08/18 13:45 100.4 69 14 108/58 97 3.00 10/08/18 13:25 100.5 86 16 104/63 94 Nasal Cannula 10/08/18 13:03 98.7 92 20 101/54 95 Nasal Cannula 3.00 10/08/18 12:42 98.2 98 18 83/42 94 Nasal Cannula 3.00 10/08/18 11:23 94 Room Air 10/08/18 10:47 100.5 106 18 82/53 (63) 96 Nasal Cannula I & O 10/09/18 07:00 Intake Total 6700 ml Output Total 800 ml Balance 5900 ml Height & Weight Height: 5'3.00" Weight: 232lbs. 0.0oz. 105.576422hz; 41.1 BMI Method:Actual General Appearance: No Apparent Distress, WD/WN HEENT: PERRL/EOMI, Normal ENT Inspection, Other Neck: Normal Inspection Respiratory: Accessory Muscle Use, Crackles, Decreased Breath Sounds Cardiovascular: Regular Rate, Rhythm, No Edema, Tachycardia Capillary Refill: Less Than 3 Seconds Extremity: Normal Inspection, No Pedal Edema Neurologic/Psychiatric: Alert, Oriented x3, No Motor/Sensory Deficits, Normal Mood/Affect, table assembler II-XII Norm as Tested Results Lab Laboratory Tests 10/08/18 10:57 10/08/18 16:47 10/09/18 02:57 Assessment/Plan Assessment/Plan Severe Septic shock -Severe sepsis protocol -IVF -Change Abx to Merrem, Vanco and Eraxis (pt was getting TPN as out pt) -Consult wound care -Levophed Metabolic lactic acidosis -IVF -Liter bolus of LR pulmonary edema - secondary to IVF/sepsis protocol -Continue IVF for now and monitor -Change oxy mask to Vapotherm -BiPAP QHS and PRN -check ABG Recurrent Ventral hernia -Dr. Hallman has been following pt -Possible surgery today Hypomag -replace Intestinal bleeding Urinary tract infection Enterocutaneous fistula JESSICA BATEMAN DO Oct 09, 2018 06:28
[2018-10-09] MEDS ORDERED: LACTATED RINGERS 1,000 ML IV SCH (06:30)
[2018-10-09 07:00] LABS: ABG BASE EXCESS -4.5 MMOL/L (-2.5-2.5); ABG OXYGEN SATURATION 90 % (94-100); ABG PCO2 34 MMHG (35-45); ABG PH 7.39 (7.37-7.43); ABG PO2 58 MMHG (79-93); ABG TCO2 20.7 MMOL/L (21.0-31.0); ALLENS TEST YES-POS
[2018-10-09 07:01] LABS: INSPIRED O2 6L; VENTILATOR NO
[2018-10-09] MEDS: LACTATED RINGERS 1,000 ML IV SCH ×4 (07:09→21:54)
[2018-10-09] MEDS: MAGNESIUM 1 GM/100 ML IVPB 100 ML IV SCH ×2 (08:27→08:28)
--- NOTE | 2018-10-09 08:45 | Diagnostic Imaging Report ---
EXAMINATION: Portable erect AP chest at 3:21 AM. INDICATION: Dyspnea. FINDINGS: The cardiomegaly noted on the prior exam of 10/08/2018 is again evident and no different. The central pulmonary vascularity does seem somewhat more prominent than on the prior study and this appearance does suggest that there is slightly greater pulmonary congestion than on the prior exam. There is still no consolidated pneumonia or significant pleural effusion identified. The mediastinum is not widened. The osseous structures are intact. The right-sided central venous catheter seen previously is unchanged in position. IMPRESSION: The appearance of the chest has worsened since the prior study as there does seem to be somewhat greater pulmonary congestion. A followup exam would be recommended for continued study. Dictated by: Dictated on workstation # [id number]
[2018-10-09] MEDS ORDERED: ACET-93 PO (09:34)
--- NOTE | 2018-10-09 09:35 | NUR ---
SPOKE WITH PT ABOUT HER MEDICATIONS WELL CHECKING THROUGH THE EXTERNAL MED HISTORY (THERE WAS NOTHING LISTED) TO COMPLETE THE MED REC. PATIENT STATES SHE WAS ON 2 DIFFERENT STRENGTHS OF LEVOTHYROXINE AND METFORMIN BUT HAS NOT TAKEN THEM IN ABOUT 4 MONTHS (SHE RECEIVED 30 DAY SUPPLIES OF EACH) OTC MEDICATIONS: ACETAMINOPHEN 500MG- 1 TO 2 Q 8 H PRN FLONASE PRN
[2018-10-09] MEDS: inSUlin ASPART (NovoLOG) 1 UNIT/0.01 ML (CHARGE PER UNIT) SC SCH ×3 (09:57→18:58)
[2018-10-09] MEDS: NOREPINEPHRINE 8 MG in NS (IVPB) 250 ML IV SCH (10:09)
[2018-10-09] MEDS ORDERED: RT-ALBUTEROL/IPRATROPIUM 3 ML (DUONEB) VIAL INH SCH (11:00)
--- NOTE | 2018-10-09 11:44 | History & Physical-Hospitalist ---
History of Present Illness HPI/Chief Complaint Chief complaint: Septic shock History of present illness: This is a 63-year-old white female patient of [facility] Dr. Schuster who presented to the ER with hypotension found to have septic shock requiring aggressive IV fluid resuscitation and empiric IV antibiotics. She has a long history of the very complicated ventral hernia status post intestinal surgery complications. She is maintained on TPN at home has had complicated UTIs requiring IV antibiotics and multiple hospital stays in the last [address] Hallman is her primary surgeon. She required a central line placement and Pseudomonas is growing from the abdominal wound and there is yeast on the PICC line blood culture. At this current time patient feels much better but is requiring Vapotherm oxygen. Source: patient, RN/MD, old records Exam Limitations: no limitations Date Seen 10/09/18 Time Seen by a Provider: 10:00 Attending Physician Michelle Craft Bethany N MD Referring Physician Date of Admission Oct 08, 2018 at 15:19 Home Medications & Allergies Home Medications Reviewed patient Home Medication Reconciliation performed by pharmacy medication reconciliations dental technician and/or nursing. Patients Allergies have been reviewed. Allergies Allergies Coded Allergies linezolid (Verified Allergy, Severe, swelling to tongue, skin rash, 09/13/18) Past Afjsqjv-Shbpuk-Krpeve Hx Past Med/Social Hx: Reviewed Nursing Past Med/Soc Hx, Reviewed and Corrections made Patient Social History Marrital Status: single Employed/Student: unemployed Alcohol Use: Denies Use Recreational Drug Use: No Smoking Status: Never a Smoker 2nd Hand Smoke Exposure: No Recent Foreign Travel: No Contact w/other who traveled: No Recent Hopitalizations: Yes Recent Infectious Disease Expo: No Immunizations Up To Date Tetanus Booster (TDap): Unknown Date of Pneumonia Vaccine: Apr 09, 2018 Date of Influenza Vaccine: Jan 07, 2018 Seasonal Allergies Seasonal Allergies: No Past Medical History Surgeries: Abdominal Cardiac: Hypertension : No Reproductive: No Genitourinary: Bladder Infection Gastrointestinal: Hepatitis Musculoskeletal: Arthritis Endocrine: Hypothyroidsim History of Blood Disorders: No Family History Heart Disease, Renal Disease Review of Systems Constitutional: see HPI, dizziness, malaise, weakness EENTM: no symptoms reported Respiratory: no symptoms reported Cardiovascular: no symptoms reported Gastrointestinal: abdominal pain Genitourinary: decreased output Musculoskeletal: back pain, joint pain Skin: no symptoms reported Psychiatric/Neurological: Anxiety, Depressed All Other Systems Reviewed Negative Unless Noted: Yes Physical Exam Physical Exam Vital Signs Vital Signs - First Documented 10/08/18 10/08/18 10/09/18 10:47 12:42 07:20 Temp 100.5 Pulse 106 Resp 18 B/P (MAP) 82/53 (63) Pulse Ox 96 O2 Delivery Nasal Cannula O2 Flow Rate 3.00 FiO2 50 Capillary Refill : Less Than 3 Seconds Height, Weight, BMI Height: 5'3.00" Weight: 254lbs. 3.0oz. 115.848767ih; 41.1 BMI Method:Actual General Appearance: No Apparent Distress, WD/WN, Chronically ill Eyes: Right Eye Normal Inspection, Right Eye PERRL HEENT: PERRL/EOMI, Normal ENT Inspection, Pharynx Normal, Moist Mucous Membranes Neck: Full Range of Motion, Normal Inspection, Non Tender Respiratory: Chest Non Tender, Lungs Clear, Normal Breath Sounds, No Accessory Muscle Use, No Respiratory Distress Cardiovascular: Regular Rate, Rhythm, No Edema, No Gallop, No JVD, No Murmur, Normal Peripheral Pulses Gastrointestinal: Normal Bowel Sounds, No Organomegaly, No Pulsatile Mass, Other (wound dressing intact) Back: Normal Inspection, No CVA Tenderness, No Vertebral Tenderness Extremity: Normal Capillary Refill, Normal Inspection, Normal Range of Motion, Non Tender, No Calf Tenderness, No Pedal Edema Neurologic/Psychiatric: Alert, Oriented x3, No Motor/Sensory Deficits, Normal Mood/Affect Skin: Normal Color, Warm/Dry Lymphatic: No Adenopathy Results Results/Procedures Labs Laboratory Tests 10/08/18 10:57 10/08/18 16:47 10/09/18 02:57 Patient resulted labs reviewed. Assessment/Plan Admission Diagnosis Assessment: Septic shock Pseudomonas wound infection empirically placed on Meropenem yesterday Yeast on PICC line BCx placed empirically on Eraxis Ventral hernia with complications preventing repair Recurrent UTI Plan: Monitor closely Vapotherm Wean O2 IV Abx Admission Status: Inpatient Order (span 2 midnights) Reason for Inpatient Admission: Septic shock Diagnosis/Problems Diagnosis/Problems (1) Septic shock Status: Acute (2) Renal insufficiency Status: Acute (3) Enterocutaneous fistula Status: Acute (4) Hemorrhage from wound Status: Acute (5) Urinary tract infection Status: Acute Qualifiers: Urinary tract infection type: site unspecified Hematuria presence: without hematuria Qualified Codes: N39.0 - Urinary tract infection, site not specified (6) Malnutrition Status: Acute (7) Weakness generalized Status: Acute Clinical Quality Measures DVT/VTE Risk/Contraindication: Risk Factor Score Per Nursin RFS Level Per Nursing on Admit: 4+=Very High MICHELLE CRAFT DO Oct 09, 2018 11:44
--- NOTE | 2018-10-09 13:40 | Occupational Therapy Eval ---
OT Evaluation-General/PLF Medical Diagnosis Admission Date Oct 08, 2018 at 15:19 Medical Diagnosis: sepsis Onset Date: Oct 09, 2018 Therapy Diagnosis Therapy Diagnosis: impaired ADLs and mobility Height/Weight Height (Feet): 5 Height (Inches): 3.00 Weight (Pounds): 254 Weight (Ounces): 3.0 Precautions Precautions/Isolations: Fall Prevention, Standard Precautions Weight Bear Status Weight Bearing Restriction: Weight Bearing/Tolerated Referral Referral Reason: Activity Tolerance, Self Care, Evaluation/Treatment, Strengthening/ROM Medical History Pertinent Medical History: Arthritis, HTN, Hypothroidism Current History This 63-year-old woman with a 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 Family notes there was a large amount of bloody fluid in the collection sac that usually covers the fistula. There is also a large amount of bloody fluid on the floor. The fistula normally drains a [place]-appearing fluid. On exam the patient had greenish purulent material pooled in the fistula site. Patient is alert and oriented but mentation is dulled. She was recently admitted to this facility September 13- for urinary tract infection. Patient is suspected to have sepsis from urinary tract infection or the fistula site. She is not actively bleeding on arrival. Patient has multiple risk factors for sepsis including TPN, diabetes and open fistula. She has a referral to [facility] for surgical repair. Surgery has been delayed to date until patient can achieve weight loss to 200 pounds. Reviewed History: Yes Social History Home: Single Level Current Living Status: Significant Other (he is a company truck driver and hardly home ) ADL-Prior Level of Function Therapy Code Descriptions/Definitions Functional [place] Measure: 0=Not Assessed/NA 4=Minimal Assistance 1=Total Assistance 5=Supervision or Setup 2=Maximal Assistance 6=Modified [place] 3=Moderate Assistance 7=Complete [place] Therapy Quality Codes: 6 Independent with activity with or without an assistive device 5 Patient requires set up or clean up by helper. Patient completes activity by themselves 4 Supervision or touching assist (CGA). [place] provide cues , steadying assist 3 The helper provides less than half the effort to complete the activity 2 The helper provides more than half the effort to complete the activity 1 Dependent. The helper does all the effort to complete an activity 7 Patient refused to complete or attempt activity 9 The patient did not perform the activity before the current illness or injury 88 Not attempted due to Medical conditions or safety concerns Functional Abilities and Goals: Independent: Patient completed the activities by him/herself, with or without an assistive device, with no assistance from a helper. Needed Some Help: Patient needed partial assistance from another person to complete activities. Dependent: A helper completed the activities for the patient. Unknown: Not Applicable: Self Care: Independent Functional Cognition: Independent DME/Equipment: Shower, Tub/Shower Drive Self: Yes OT Current Status Subjective pt laying in bed upon OT arrival in no apparent distress. pt agreed to OT evaluation session. pt granddaughters present during session. NSG stated pt may participate in OT eval. NSG request no mobility this date secondary to abdomen Pain Numeric Pain Scale: 0-No Pain Appearance open wound/ fistula on abdomen Mental Status/Objective Patient Orientation: Person, Place, Time, Situation Attachments: Central Line, [place] Catheter, IV, Oxygen (50%), SCD's, Telemetry Current Glasses/Contacts: Yes Hearing Aids: No Dentures/Partials: No Hand Dominance: Right Upper Extremity ROM WFL Upper Extremity Coordination WFL Upper Extremity Sensation WFL Upper Extremity Strength 4/5 MMT Edema: ya LE ADL-Treatment Therapy Code Descriptions/Definitions Functional [place] Measure: 0=Not Assessed/NA 4=Minimal Assistance 1=Total Assistance 5=Supervision or Setup 2=Maximal Assistance 6=Modified [place] 3=Moderate Assistance 7=Complete [place] Therapy Quality Codes: 6 Independent with activity with or without an assistive device 5 Patient requires set up or clean up by helper. Patient completes activity by themselves 4 Supervision or touching assist (CGA). [place] provide cues , steadying assist 3 The helper provides less than half the effort to complete the activity 2 The helper provides more than half the effort to complete the activity 1 Dependent. The helper does all the effort to complete an activity 7 Patient refused to complete or attempt activity 9 The patient did not perform the activity before the current illness or injury 88 Not attempted due to Medical conditions or safety concerns Grooming (FIM): 4 Lower Body Dressing (FIM): 1 Toileting (FIM): 1 based for Evaluation not true FIM. OT Short Term Goals Short Term Goals Grooming(FIM): 5 Bathing(FIM): 5 Upper Body Dressing(FIM): 5 Lower Body Dressing(FIM): 5 Toileting(FIM): 5 Transfers (B,C,W/C) (FIM): 5 Toilet/Commode Transfer(FIM): 5 1=Demonstrate adherence to instructed precautions during ADL tasks. 2=Patient will verbalize/demonstrate understanding of assistive devices/ modifications for ADL. 3=Patient will improve strength/tolerance for activity to enable patient to perform ADL's. OT Prison Goals Sweatband Flanger Goals Time Frame: Oct 23, 2018 Grooming(FIM): 6 Bathing(FIM): 6 Bathing Location: L Arm, R Arm, L Upper Leg, R Upper Leg, L Lower Leg (including foot), R Lower Leg (including foot), Chest, Abdomen, Buttocks, Perineal Area Upper Body Dressing(FIM): 6 Lower Body Dressing(FIM): 6 Toileting(FIM): 6 Transfers (B,C,W/C) (FIM): 6 Toilet/Commode Transfer(FIM): 6 Shower Transfer(FIM): 6 Additional Goals: 1-Demonstrate ADL Tasks, 2-Verbalize Understanding, 3- ImproveStrength/[place]arcel[place] 1=Demonstrate adherence to instructed precautions during ADL tasks. 2=Patient will verbalize/demonstrate understanding of assistive devices/ modifications for ADL. 3=Patient will improve strength/tolerance for activity to enable patient to perform ADL's. OT Education/Plan Problem List/Assessment Assessment: Decreased Activ Tolerance, Decreased Safety Aware, Decreased UE Strength, Impaired Bed Mobility, Impaired Cognition, Impaired Coordination, Impaired Funct Balance, Impaired I ADL's, Impaired Self-Care Skills pt presents with functional limitations affecting areas of ADLS/ functional transfers with the above mention deficits. pt would benefit from OT services to increase independence with ADLS/ functional transfers. Discharge Recommendations Plan/Recommendations: Continue POC Treatment Plan/Plan of Care Treatment,Training & Education: Yes Patient would benefit from OT for education, treatment and training to promote independence in ADL's, mobility, safety and/or upper extremity function for ADL's. Plan of Care: ADL Retraining, Functional Mobility, Group Exercise/Act as Ind, UE Funct Exercise/Act Treatment Duration: Oct 23, 2018 Frequency: 5 times per week Estimated Hrs Per Day: .25 hour per day Agreement: Yes Rehab Potential: Good Time/GCodes Start Time: 13:10 Stop Time: 13:30 Billed Treatment Time EVM 20- minutes JOSSE SANCHEZ OT Oct 09, 2018 13:40
--- NOTE | 2018-10-09 13:54 | Progress Note ---
Subjective Time Seen by a Provider: 13:19 Subjective/Events-last exam Pt seen and examined, feeling better today....still just tired. Pt denies abdominal pain and denies trouble breathing. Review of Systems General: Fatigue, Malaise Pulmonary: No Dyspnea, No Cough Cardiovascular: No: Chest Pain, Palpitations Gastrointestinal: No: Nausea, Vomiting, Abdominal Pain Genitourinary: Dysuria, Frequency Focused Exam Lactate Level 10/08/18 16:47: Lactic Acid Level 3.27*H 10/08/18 19:39: Lactic Acid Level 3.14*H 10/09/18 02:57: Lactic Acid Level 2.23*H Objective Exam Vital Signs Date Time Temp Pulse Resp B/P (MAP) Pulse Ox O2 Delivery O2 Flow Rate FiO2 10/09/18 13:00 75 10/09/18 13:00 75 23 102/80 (87) 91 Vapotherm 45.00 30.00 10/09/18 12:00 77 25 103/78 (86) 90 Vapotherm 45.00 30.00 10/09/18 11:30 97.4 10/09/18 11:00 76 17 103/77 (86) 94 Vapotherm 45.00 30.00 10/09/18 10:49 93 Vapotherm 30.00 50 10/09/18 10:00 80 19 105/86 (92) 91 Vapotherm 50.00 30.00 10/09/18 09:00 78 20 109/87 (94) 91 Vapotherm 50.00 30.00 10/09/18 08:00 93 Nasal Cannula 6.00 10/09/18 08:00 77 15 105/83 (90) 93 Vapotherm 50.00 30.00 10/09/18 07:30 97.0 10/09/18 07:22 Vapotherm 50.00 30.00 10/09/18 07:20 92 Vapotherm 30.00 50 10/09/18 07:00 83 21 96/71 (79) 90 OxyMask 6.00 10/09/18 07:00 83 10/09/18 06:00 81 17 95/67 (76) 92 OxyMask 6.00 10/09/18 05:00 84 20 92/57 (69) 91 OxyMask 6.00 10/09/18 04:17 93 Nasal Cannula 6.00 10/09/18 04:05 99.0 10/09/18 04:00 87 19 97/62 (74) 92 OxyMask 6.00 10/09/18 03:00 86 20 91/64 (73) 90 OxyMask 6.00 10/09/18 02:00 91 21 94/63 (73) 91 OxyMask 6.00 10/09/18 01:00 90 18 97/60 (72) 90 OxyMask 6.00 10/09/18 01:00 90 10/09/18 00:51 93 Nasal Cannula 6.00 10/09/18 00:00 96 21 94/59 (71) 93 OxyMask 6.00 10/08/18 23:47 99.0 10/08/18 23:00 100 20 93/58 (70) 90 OxyMask 6.00 10/08/18 22:00 107 23 93/56 (68) 93 OxyMask 6.00 10/08/18 21:03 100 20 93 OxyMask 6.00 10/08/18 21:00 103 21 98/71 (80) 89 Nasal Cannula 4.00 10/08/18 20:10 93 Nasal Cannula 6.00 10/08/18 20:00 98.7 10/08/18 20:00 96 26 110/82 (91) 92 Nasal Cannula 4.00 10/08/18 19:00 93 25 111/89 (96) 91 Nasal Cannula 4.00 10/08/18 19:00 93 10/08/18 17:00 75 15 117/80 (92) 95 Nasal Cannula 4.00 10/08/18 16:23 99.6 10/08/18 16:15 90 9 101/65 (77) 93 Nasal Cannula 4.00 10/08/18 16:13 100.4 69 14 122/67 (85) 97 Nasal Cannula 3.00 10/08/18 16:06 97 10/08/18 14:50 100.4 69 14 122/67 97 3.00 10/08/18 13:45 100.4 69 14 108/58 97 3.00 I & O 10/09/18 07:00 Intake Total 6700 ml Output Total 1050 ml Balance 5650 ml Capillary Refill : Less Than 3 Seconds General Appearance: No Apparent Distress, WD/WN HEENT: PERRL/EOMI, Normal ENT Inspection, Other Neck: Normal Inspection Respiratory: Accessory Muscle Use, Crackles, Decreased Breath Sounds Cardiovascular: Regular Rate, Rhythm, No Edema, Tachycardia Gastrointestinal: normal bowel sounds, soft, other (Large portion of small bowel visible, mesh visible, no signs of erythema or infection, there is normal bowel contents in wound) Extremity: Normal Inspection, No Pedal Edema Neurologic/Psychiatric: Alert, Oriented x3, No Motor/Sensory Deficits, Normal Mood/Affect, unit supervisor II-XII Norm as Tested Results Lab Laboratory Tests 10/08/18 13:55: Lactic Acid Level 2.99*H 10/08/18 16:47: Lactic Acid Level 3.27*H, White Blood Count 13.1H, Red Blood Count 3.98L, Hemoglobin 12.5, Hematocrit 37, Mean Corpuscular Volume 93, Mean Corpuscular Hemoglobin 31, Mean Corpuscular Hemoglobin Concent 34, Red Cell Distribution Wid th 19.2H, Platelet Count 168, Mean Platelet Volume 11.9H, Neutrophils (%) (Auto) 76H, Lymphocytes (%) (Auto) 13, Monocytes (%) (Auto) 10, Eosinophils (%) (Auto) 0, Basophils (%) (Auto) 1, Neutrophils # (Auto) 10.0H, Lymphocytes # (Auto) 1.8, Monocytes # (Auto) 1.3H, Eosinophils # (Auto) 0.0, Basophils # (Auto) 0.1, Sodium Level 137, Potassium Level 3.6, Chloride Level 107, Carbon Dioxide Level 20L, Anion Gap 10, Blood Urea Nitrogen 30H, Creatinine 1.45H, Estimat Glomerular Filtration Rate 36, BUN/Creatinine Ratio 21, Glucose Level 229H, Calcium Level 7.2L, Corrected Calcium 8.6, Total Bilirubin 1.4H, Aspartate Amino Transf (AST/SGOT) 98H, Alanine Aminotransferase (ALT/SGPT) 63H, Alkaline Phosphatase 108, Total Protein 6.7, Albumin 2.3L 10/08/18 19:39: Lactic Acid Level 3.14*H 10/08/18 23:52: Glucometer 210H 10/09/18 02:57: White Blood Count 12.7H, Red Blood Count 3.89L, Hemoglobin 12.2, Hematocrit 36, Mean Corpuscular Volume 93, Mean Corpuscular Hemoglobin 31, Mean Corpuscular Hemoglobin Concent 34, Red Cell Distribution Width 19.7H, Platelet Count 174, Mean Platelet Volume 12.6H, Neutrophils (%) (Auto) 76H, Lymphocytes (%) (Auto) 17, Monocytes (%) (Auto) 6, Eosinophils (%) (Auto) 0, Basophils (%) (Auto) 1, Neutrophils # (Auto) 9.7H, Lymphocytes # (Auto) 2.2, Monocytes # (Auto) 0.8, Eosinophils # (Auto) 0.0, Basophils # (Auto) 0.1, Sodium Level 137, Potassium Level 3.9, Chloride Level 107, Carbon Dioxide Level 20L, Anion Gap 10, Blood Urea Nitrogen 27H, Creatinine 1.26, Estimat Glomerular Filtration Rate 43, BUN/Creatinine Ratio 21, Glucose Level 218H, Lactic Acid Level 2.23*H, Calcium Level 7.6L, Phosphorus Level 3.3, Magnesium Level 1.6L 10/09/18 05:50: Glucometer 198H 10/09/18 06:57: Blood Gas Puncture Site RIGHT RADIAL, Blood Gas Patient Temperature 99.0, Arterial Blood pH 7.39, Arterial Blood Partial Pressure CO2 34L, Arterial Blood Partial Pressure O2 58L, Arterial Blood HCO3 20L, Arterial Blood Total CO2 20.7L , Arterial Blood Oxygen Saturation 90L, Arterial Blood Base Excess -4.5L, Kamaljit Test YES-POS, Blood Gas Ventilator Setting NO, Blood Gas Inspired Oxygen 6L 10/09/18 08:16: Lab Scanned Report Transfusion Reaction Form 10/09/18 09:57: Glucometer 194H 10/09/18 12:17: Glucometer 183H Microbiology 10/08/18 Catheter Tip Culture - Preliminary, Resulted No growth 10/08/18 Urine Culture - Preliminary, Resulted Gram Negative Dhruv 10/08/18 Gram Stain - Final, Resulted 10/08/18 Wound Culture - Preliminary, Resulted Pseudomonas aeruginosa Assessment/Plan Assessment/Plan Assessment/Plan Sepsis Intestinal Bleeding Fistula Recurrent Ventral hernia Microbiology came back with yeast seen on PICC line, gram negative dhruv seen in urine and Pseudomonas found in abdominal wound. I had a discussion with pt and the plan is to treat all of these and get her out of the Hospital. Once she is cleared from all the bacteria will plan surgery to try and repair the hernia deftect, do small bowel resection and get the abdomen closed. She is excited about this and we will continue to talk about it. Clinical Quality Measures DVT/VTE Risk/Contraindication: Risk Factor Score Per Nursin RFS Level Per Nursing on Admit: 4+=Very High MANDA STEWART DO Oct 09, 2018 13:54
[2018-10-09] MEDS: ANIDULAFUNGIN 100 MG/NS 100 ML IV SCH ×2 (14:35)
[2018-10-09] MEDS: VANCOMYCIN 1500 MG/NS 500 ML IVPB IV SCH ×2 (14:36)
--- NOTE | 2018-10-09 18:08 | Wound Care Assessment ---
Wound Care Assessment Date Seen by Provider: Oct 09, 2018 Time Seen by Provider: 00:00 Chief Complaint Abdominal wound. HPI Patient not seen. Under surgical care. Smoking Status: Never a Smoker Recreational Drug Use: No Alcohol Use: Denies Use Exam Vital Signs Date Time Temp Pulse Resp B/P (MAP) Pulse Ox O2 Delivery O2 Flow Rate FiO2 10/09/18 17:00 75 19 99/74 (82) 93 Vapotherm 45.00 30.00 10/09/18 16:00 50 10/09/18 15:30 97.2 Capillary Refill : Less Than 3 Seconds Results Laboratory Tests 10/08/18 19:39: Lactic Acid Level 3.14*H 10/08/18 23:52: Glucometer 210H 10/09/18 02:57: Lactic Acid Level 2.23*H, White Blood Count 12.7H, Red Blood Count 3.89L, Hemoglobin 12.2, Hematocrit 36, Mean Corpuscular Volume 93, Mean Corpuscular Hemoglobin 31, Mean Corpuscular Hemoglobin Concent 34, Red Cell Distribution Width 19.7H, Platelet Count 174, Mean Platelet Volume 12.6H, Neutrophils (%) (Auto) 76H, Lymphocytes (%) (Auto) 17, Monocytes (%) (Auto) 6, Eosinophils (%) (Auto) 0, Basophils (%) (Auto) 1, Neutrophils # (Auto) 9.7H, Lymphocytes # (Auto) 2.2, Monocytes # (Auto) 0.8, Eosinophils # (Auto) 0.0, Basophils # (Auto) 0.1, Sodium Level 137, Potassium Level 3.9, Chloride Level 107, Carbon Dioxide Level 20L, Anion Gap 10, Blood Urea Nitrogen 27H, Creatinine 1.26, Estimat Glomerular Filtration Rate 43, BUN/Creatinine Ratio 21, Glucose Level 218H, Calcium Level 7.6L, Phosphorus Level 3.3, Magnesium Level 1.6L 10/09/18 05:50: Glucometer 198H 10/09/18 06:57: Blood Gas Puncture Site RIGHT RADIAL, Blood Gas Patient Temperature 99.0, Arterial Blood pH 7.39, Arterial Blood Partial Pressure CO2 34L, Arterial Blood Partial Pressure O2 58L, Arterial Blood HCO3 20L, Arterial Blood Total CO2 20.7L , Arterial Blood Oxygen Saturation 90L, Arterial Blood Base Excess -4.5L, Kamaljit Test YES-POS, Blood Gas Ventilator Setting NO, Blood Gas Inspired Oxygen 6L 10/09/18 08:16: Lab Scanned Report Transfusion Reaction Form 10/09/18 09:57: Glucometer 194H 10/09/18 12:17: Glucometer 183H 10/09/18 14:00: Lactic Acid Level 2.36*H 10/09/18 15:53: Lactic Acid Level 2.36*H Microbiology 10/08/18 Catheter Tip Culture - Preliminary, Resulted No growth 10/08/18 MRSA Screen - Final, Complete 10/08/18 Urine Culture - Preliminary, Resulted Gram Negative Dhruv 10/08/18 Gram Stain - Final, Resulted 10/08/18 Wound Culture - Preliminary, Resulted Pseudomonas aeruginosa Microbiology 10/08/18 Catheter Tip Culture - Preliminary, Resulted No growth 10/08/18 Blood Culture - Preliminary, Resulted No growth 10/08/18 Blood Culture - Preliminary, Resulted YEAST 10/08/18 MRSA Screen - Final, Complete 10/08/18 Urine Culture - Preliminary, Resulted Gram Negative Dhruv 10/08/18 Gram Stain - Final, Resulted 10/08/18 Wound Culture - Preliminary, Resulted Pseudomonas aeruginosa SAMIA GARCIA MD Oct 09, 2018 18:08
[2018-10-09] MEDS: RT-ALBUTEROL/IPRATROPIUM 3 ML (DUONEB) VIAL INH SCH (21:00)
[2018-10-10] VITALS (24 sets, daily range): BP systolic 83–109; BP diastolic 54–82
[2018-10-10] MEDS: HYDROCORTISONE 100 MG/2 ML (Solu-CORTEF) VIAL IV SCH ×4 (00:36→17:53)
[2018-10-10 03:29] LABS: BASOPHILS % (AUTO) 0 % (0-10); EOSINOPHILS % (AUTO) 0 % (0-10); HEMATOCRIT 38 % (35-52); HEMOGLOBIN 12.5 G/DL (11.5-16.0); LYMPHOCYTES # (AUTO) 2.3 X 10^3 (1.0-4.0); LYMPHOCYTES % (AUTO) 17 % (12-44); MEAN CORPUSCULAR HEMOGLOBIN 31 PG (25-34); MEAN CORPUSCULAR HGB CONC 33 G/DL (32-36); MEAN CORPUSCULAR VOLUME 93 FL (80-99); MEAN PLATELET VOLUME 13.2 FL (7.4-10.4); MONOCYTES # (AUTO) 0.7 X 10^3 (0.0-1.0); MONOCYTES % (AUTO) 5 % (0-12); NEUTROPHILS # (AUTO) 10.8 X 10^3 (1.8-7.8); NEUTROPHILS % (AUTO) 78 % (42-75); PLATELET COUNT 207 10^3/uL (130-400); RED CELL DISTRIBUTION WIDTH 20.3 % (10.0-14.5); WHITE BLOOD COUNT 13.8 10^3/uL (4.3-11.0)
[2018-10-10] MEDS: RT-ALBUTEROL/IPRATROPIUM 3 ML (DUONEB) VIAL INH SCH ×4 (03:33→20:51)
[2018-10-10 03:50] LABS: CALCIUM 8.2 MG/DL (8.5-10.1); CREATININE SERUM 1.11 MG/DL (0.60-1.30); MAGNESIUM 2.1 MG/DL (1.8-2.4); PHOSPHORUS 3.3 MG/DL (2.3-4.7)
[2018-10-10] MEDS: LACTATED RINGERS 1,000 ML IV SCH ×4 (04:48→22:20)
--- NOTE | 2018-10-10 05:51 | Pulmonary Progress Note ---
Subjective Time Seen by a Provider: 14:00 Subjective/Events-last exam No complications noted Sepsis Event Evaluation Height, Weight, BMI Height: 5'3.00" Weight: 254lbs. 3.0oz. 115.685456fo; 41.1 BMI Method:Actual Focused Exam Lactate Level 10/09/18 02:57: Lactic Acid Level 2.23*H 10/09/18 14:00: Lactic Acid Level 2.36*H 10/09/18 15:53: Lactic Acid Level 2.36*H Exam Exam Vital Signs Date Time Temp Pulse Resp B/P (MAP) Pulse Ox O2 Delivery O2 Flow Rate FiO2 10/10/18 05:00 72 10 97/72 (80) 95 Vapotherm 50.00 30.00 10/10/18 04:00 71 12 102/77 (85) 94 Vapotherm 50.00 30.00 10/10/18 03:33 93 Vapotherm 30.00 50 10/10/18 03:00 71 16 105/82 (90) 91 Vapotherm 50.00 30.00 10/10/18 02:00 72 15 108/79 (89) 90 Vapotherm 50.00 30.00 10/10/18 01:00 66 10/10/18 01:00 68 10 102/79 (87) 93 Vapotherm 50.00 30.00 10/10/18 00:00 93 Vapotherm 30.00 50 10/10/18 00:00 67 16 104/78 (87) 92 Vapotherm 50.00 30.00 10/09/18 23:00 69 29 107/77 (87) 91 Vapotherm 50.00 30.00 10/09/18 22:00 71 20 114/85 (95) 91 Vapotherm 50.00 30.00 10/09/18 21:00 74 20 104/77 (86) 92 Vapotherm 50.00 30.00 10/09/18 20:00 71 20 99/74 (82) 94 Vapotherm 50.00 30.00 10/09/18 20:00 93 Vapotherm 30.00 50 10/09/18 19:50 96.7 10/09/18 19:00 78 19 101/77 (85) 93 Vapotherm 50.00 30.00 10/09/18 19:00 78 10/09/18 18:00 74 18 99/76 (84) 90 Vapotherm 45.00 30.00 10/09/18 17:00 75 19 99/74 (82) 93 Vapotherm 45.00 30.00 10/09/18 16:00 93 Vapotherm 30.00 50 10/09/18 16:00 76 24 90/67 (75) 92 Vapotherm 45.00 30.00 10/09/18 15:30 97.2 10/09/18 15:17 92 Vapotherm 30.00 50 10/09/18 15:00 77 27 98/75 (83) 91 Vapotherm 45.00 30.00 10/09/18 14:00 80 19 91 Vapotherm 45.00 30.00 10/09/18 13:00 75 10/09/18 13:00 75 23 102/80 (87) 91 Vapotherm 45.00 30.00 10/09/18 12:00 77 25 103/78 (86) 90 Vapotherm 45.00 30.00 10/09/18 12:00 93 Vapotherm 30.00 50 10/09/18 11:30 97.4 10/09/18 11:30 93 16 98 Room Air 10/09/18 11:00 76 17 103/77 (86) 94 Vapotherm 45.00 30.00 10/09/18 10:49 93 Vapotherm 30.00 50 10/09/18 10:00 80 19 105/86 (92) 91 Vapotherm 50.00 30.00 10/09/18 09:00 78 20 109/87 (94) 91 Vapotherm 50.00 30.00 10/09/18 08:00 93 Nasal Cannula 6.00 10/09/18 08:00 77 15 105/83 (90) 93 Vapotherm 50.00 30.00 10/09/18 07:30 97.0 10/09/18 07:22 Vapotherm 50.00 30.00 10/09/18 07:20 92 Vapotherm 30.00 50 10/09/18 07:00 83 21 96/71 (79) 90 OxyMask 6.00 10/09/18 07:00 83 10/09/18 06:00 81 17 95/67 (76) 92 OxyMask 6.00 I & O 10/10/18 07:00 Intake Total 1000 ml Output Total 675 ml Balance 325 ml Height & Weight Height: 5'3.00" Weight: 254lbs. 3.0oz. 115.159591fx; 41.1 BMI Method:Actual General Appearance: No Apparent Distress, WD/WN, Chronically ill HEENT: PERRL/EOMI, Normal ENT Inspection, Pharynx Normal, Moist Mucous Membranes Neck: Full Range of Motion, Normal Inspection, Non Tender Respiratory: Chest Non Tender, Lungs Clear, Normal Breath Sounds, No Accessory Muscle Use, No Respiratory Distress Cardiovascular: Regular Rate, Rhythm, No Edema, No Gallop, No JVD, No Murmur, Normal Peripheral Pulses Capillary Refill: Less Than 3 Seconds Gastrointestinal: normal bowel sounds, soft, other (Large portion of small bowel visible, mesh visible, no signs of erythema or infection, there is normal bowel contents in wound) Extremity: Normal Capillary Refill, Normal Inspection, Normal Range of Motion, Non Tender, No Calf Tenderness, No Pedal Edema Neurologic/Psychiatric: Alert, Oriented x3, No Motor/Sensory Deficits, Normal Mood/Affect Skin: Normal Color, Warm/Dry Lymphatic: No Adenopathy Results Lab Laboratory Tests 10/08/18 10:57 10/08/18 16:47 10/09/18 02:57 10/10/18 03:22 Assessment/Plan Assessment/Plan Severe Septic shock -Severe sepsis protocol -IVF -Continue Merrem, Vanco and Eraxis for now -MRSA swab is positive -Consult wound care -Levophed Candidiasis bacteremia -Eraxis Wound culture - pseudomonas -Continue Merrem for now Metabolic lactic acidosis -IVF -Liter bolus of LR pulmonary edema - secondary to IVF/sepsis protocol -Continue IVF for now and monitor -Change oxy mask to Vapotherm -BiPAP QHS and PRN -check ABG Recurrent Ventral hernia -Dr. Hallman has been following pt -Possible surgery today Hypomag -replace Intestinal bleeding Urinary tract infection Enterocutaneous fistula JESSICA BATEMAN DO Oct 10, 2018 05:51
[2018-10-10] MEDS: MEROPENEM 500 MG/SWFI 10 ML IV PUSH IV SCH ×6 (06:15→21:15)
[2018-10-10] MEDS: inSUlin ASPART (NovoLOG) 1 UNIT/0.01 ML (CHARGE PER UNIT) SC SCH ×3 (06:44→17:56)
[2018-10-10] MEDS: POTASSIUM CL 10MEQ/50ML IVPB 50 ML IV SCH (06:45)
[2018-10-10] MEDS: MAGNESIUM 1 GM/100 ML IVPB 100 ML IV SCH (06:45)
[2018-10-10] MEDS: NOREPINEPHRINE 8 MG in NS (IVPB) 250 ML IV SCH ×3 (07:56→23:24)
--- NOTE | 2018-10-10 09:55 | Diagnostic Imaging Report ---
EXAM: Portable erect AP chest at 3:56 a.m. INDICATION: Dyspnea FINDINGS: The cardiomegaly noted on the prior exam of 10/09/2018 is again evident and essentially no different. The interstitial densities in both lungs are less prominent than on the previous exam however. There is still no evidence for pneumonia or for a significant pleural effusion. The mediastinum is not widened. The osseous structures are intact. The central venous catheter on the right seen previously is unchanged in position. IMPRESSION: 1. The appearance of the chest has improved as there does appear to be less pulmonary congestion. A followup exam would be recommended for continued evaluation. Dictated by: Dictated on workstation # [id number]
--- NOTE | 2018-10-10 11:47 | Progress Note-Hospitalist ---
Subjective HPI/CC On Admission Date Seen by Provider: Oct 10, 2018 Time Seen by Provider: 10:30 Chief complaint: Septic shock History of present illness: This is a 63-year-old white female patient of [facility] Dr. Schuster who presented to the ER with hypotension found to have septic shock requiring aggressive IV fluid resuscitation and empiric IV antibiotics. She has a long history of the very complicated ventral hernia status post intestinal surgery complications. She is maintained on TPN at home has had complicated UTIs requiring IV antibiotics and multiple hospital stays in the last [address] Hallman is her primary surgeon. She required a central line placement and Pseudomonas is growing from the abdominal wound and there is yeast on the PICC line blood culture. At this current time patient feels much better but is requiring Vapotherm oxygen. Subjective/Events-last exam Patient feels much better but she appears to be the same as yesterday Requiring Vapotherm Noted blood pressure slightly low at 90 systolic Daughter is son at the bedside Denies any pain Tolerating antibiotics Review of Systems General: Fatigue Focused Exam Lactate Level 10/09/18 02:57: Lactic Acid Level 2.23*H 10/09/18 14:00: Lactic Acid Level 2.36*H 10/09/18 15:53: Lactic Acid Level 2.36*H Objective Exam Vital Signs Vital Signs Date Time Temp Pulse Resp B/P (MAP) Pulse Ox O2 Delivery O2 Flow Rate FiO2 10/10/18 12:00 67 6 93/61 (72) 96 Vapotherm 40.00 30.00 10/10/18 08:01 50 10/10/18 08:00 96.8 Capillary Refill : Less Than 3 Seconds General Appearance: No Apparent Distress, WD/WN, Chronically ill HEENT: PERRL/EOMI, Normal ENT Inspection, Pharynx Normal, Moist Mucous Membranes Neck: Full Range of Motion, Normal Inspection, Non Tender Respiratory: Chest Non Tender, Lungs Clear, Normal Breath Sounds, No Accessory Muscle Use, No Respiratory Distress Cardiovascular: Regular Rate, Rhythm, No Edema, No Gallop, No JVD, No Murmur, Normal Peripheral Pulses Gastrointestinal: Normal Bowel Sounds, No Organomegaly, No Pulsatile Mass, Other (wound dressing intact) Back: Normal Inspection, No CVA Tenderness, No Vertebral Tenderness Extremity: Normal Capillary Refill, Normal Inspection, Normal Range of Motion, Non Tender, No Calf Tenderness, No Pedal Edema Neurologic/Psychiatric: Alert, Oriented x3, No Motor/Sensory Deficits, Normal Mood/Affect Skin: Normal Color, Warm/Dry Lymphatic: No Adenopathy Results/Procedures Lab Laboratory Tests 10/10/18 03:22 Patient resulted labs reviewed. Assessment/Plan Assessment and Plan Assess & Plan/Chief Complaint Assessment: Septic shock Pseudomonas wound infection empirically placed on Meropenem since admit Yeast on PICC line BCx placed empirically on Eraxis Ventral hernia with complications preventing repair Recurrent UTI Plan: Monitor closely Vapotherm Wean O2 IV Abx Diagnosis/Problems Diagnosis/Problems (1) Septic shock Status: Acute (2) Renal insufficiency Status: Acute (3) Enterocutaneous fistula Status: Acute (4) Hemorrhage from wound Status: Acute (5) Urinary tract infection Status: Acute Qualifiers: Urinary tract infection type: site unspecified Hematuria presence: without hematuria Qualified Codes: N39.0 - Urinary tract infection, site not specified (6) Malnutrition Status: Acute (7) Weakness generalized Status: Acute Clinical Quality Measures DVT/VTE Risk/Contraindication: Risk Factor Score Per Nursin RFS Level Per Nursing on Admit: 4+=Very High CY CANDELARIO DO Oct 10, 2018 11:47
--- NOTE | 2018-10-10 13:18 | Occ Therapy Progress Note ---
Therapy Progress Note NSG request hold on therapy this date secondary to abdominal wound leakage. OT will reattempt to see patient 10/11/18 JOSSE SANCHEZ OT Oct 10, 2018 13:18
[2018-10-10] MEDS: ANIDULAFUNGIN 100 MG/NS 100 ML IV SCH ×2 (14:11)
--- NOTE | 2018-10-10 14:22 | NUR ---
1400 DUE TO CHANGES IN STAFFING CARE OF PT TO THIS RN, REPORT RECEIVED FROM Canelo RICO RN.
[2018-10-10] MEDS ORDERED: LACTATED RINGERS 1,000 ML IV SCH (14:30)
--- NOTE | 2018-10-10 15:09 | Progress Note ---
Subjective Time Seen by a Provider: 11:10 Subjective/Events-last exam Pt seen and examined, she states she is feeling better still just very tired. She was taken off Levophed this am and nurse also noted bleeding from midline fistula area. Pt states "it has been bleeding a lot, hasn't done this before." She just wants to get better so she can have her surgery. Review of Systems General: No Chills, No Night Sweats; Fatigue, Malaise Pulmonary: No Dyspnea, No Cough Cardiovascular: No: Chest Pain, Palpitations Gastrointestinal: Abdominal Pain (mild), Hematochezia; No: Nausea, Vomiting Focused Exam Lactate Level 10/09/18 02:57: Lactic Acid Level 2.23*H 10/09/18 14:00: Lactic Acid Level 2.36*H 10/09/18 15:53: Lactic Acid Level 2.36*H Objective Exam Vital Signs Date Time Temp Pulse Resp B/P (MAP) Pulse Ox O2 Delivery O2 Flow Rate FiO2 10/10/18 14:14 93 Vapotherm 30.00 50 10/10/18 14:00 75 14 93/61 (72) 95 Vapotherm 40.00 30.00 10/10/18 13:00 71 20 92/68 (76) 93 Vapotherm 40.00 30.00 10/10/18 12:58 74 10/10/18 12:00 67 6 93/61 (72) 96 Vapotherm 40.00 30.00 10/10/18 12:00 93 Vapotherm 30.00 40 10/10/18 11:45 97.1 10/10/18 11:00 74 8 93/61 (72) 94 Vapotherm 40.00 30.00 10/10/18 10:00 83 15 94/64 (74) 94 Vapotherm 40.00 30.00 10/10/18 09:00 82 34 94/66 (75) 93 Vapotherm 40.00 30.00 10/10/18 09:00 Vapotherm 40.00 30.00 10/10/18 08:01 96 Vapotherm 30.00 50 10/10/18 08:00 72 10 92/63 (73) 96 Vapotherm 50.00 30.00 10/10/18 08:00 93 Vapotherm 30.00 50 10/10/18 08:00 96.8 10/10/18 07:00 74 10/10/18 07:00 69 14 109/82 (91) 95 Vapotherm 50.00 30.00 10/10/18 06:00 71 17 102/77 (85) 94 Vapotherm 50.00 30.00 10/10/18 05:00 72 10 97/72 (80) 95 Vapotherm 50.00 30.00 10/10/18 04:00 71 12 102/77 (85) 94 Vapotherm 50.00 30.00 10/10/18 04:00 93 Vapotherm 30.00 50 10/10/18 04:00 95.8 10/10/18 03:33 93 Vapotherm 30.00 50 10/10/18 03:00 71 16 105/82 (90) 91 Vapotherm 50.00 30.00 10/10/18 02:00 72 15 108/79 (89) 90 Vapotherm 50.00 30.00 10/10/18 01:00 66 10/10/18 01:00 68 10 102/79 (87) 93 Vapotherm 50.00 30.00 10/10/18 00:00 97.6 10/10/18 00:00 93 Vapotherm 30.00 50 10/10/18 00:00 67 16 104/78 (87) 92 Vapotherm 50.00 30.00 10/09/18 23:00 69 29 107/77 (87) 91 Vapotherm 50.00 30.00 10/09/18 22:00 71 20 114/85 (95) 91 Vapotherm 50.00 30.00 10/09/18 21:00 74 20 104/77 (86) 92 Vapotherm 50.00 30.00 10/09/18 20:00 71 20 99/74 (82) 94 Vapotherm 50.00 30.00 10/09/18 20:00 93 Vapotherm 30.00 50 10/09/18 19:50 96.7 10/09/18 19:00 78 19 101/77 (85) 93 Vapotherm 50.00 30.00 10/09/18 19:00 78 10/09/18 18:00 74 18 99/76 (84) 90 Vapotherm 45.00 30.00 10/09/18 17:00 75 19 99/74 (82) 93 Vapotherm 45.00 30.00 10/09/18 16:00 93 Vapotherm 30.00 50 10/09/18 16:00 76 24 90/67 (75) 92 Vapotherm 45.00 30.00 10/09/18 15:30 97.2 10/09/18 15:17 92 Vapotherm 30.00 50 I & O 10/10/18 07:00 Intake Total 2000 ml Output Total 850 ml Balance 1150 ml Capillary Refill : Less Than 3 Seconds General Appearance: No Apparent Distress, WD/WN, Chronically ill, Obese HEENT: PERRL/EOMI, Pharynx Normal, Moist Mucous Membranes Respiratory: Chest Non Tender, Lungs Clear, Normal Breath Sounds, No Accessory Muscle Use, No Respiratory Distress Cardiovascular: Regular Rate, Rhythm, No Edema, No Gallop, No JVD, No Murmur, Normal Peripheral Pulses Gastrointestinal: normal bowel sounds, soft, other (Large portion of small bowel visible, mesh visible, no signs of erythema or infection, there is normal bowel contents in wound. Now bleeding from left edge around intestine, looked like maybe from mucosa of intestine) Extremity: Normal Capillary Refill, Normal Inspection, Normal Range of Motion, Non Tender, No Calf Tenderness, No Pedal Edema Neurologic/Psychiatric: Alert, Oriented x3, No Motor/Sensory Deficits, Depressed Affect Skin: Normal Color, Warm/Dry Lymphatic: No Adenopathy Results Lab Laboratory Tests 10/09/18 15:53: Lactic Acid Level 2.36*H 10/09/18 18:35: Glucometer 156H 10/10/18 03:22: White Blood Count 13.8H, Red Blood Count 4.03L, Hemoglobin 12.5, Hematocrit 38, Mean Corpuscular Volume 93, Mean Corpuscular Hemoglobin 31, Mean Corpuscular Hemoglobin Concent 33, Red Cell Distribution Width 20.3H, Platelet Count 207, Mean Platelet Volume 13.2H, Neutrophils (%) (Auto) 78H, Lymphocytes (%) (Auto) 17, Monocytes (%) (Auto) 5, Eosinophils (%) (Auto) 0, Basophils (%) (Auto) 0, Neutrophils # (Auto) 10.8H, Lymphocytes # (Auto) 2.3, Monocytes # (Auto) 0.7, Eosinophils # (Auto) 0.0, Basophils # (Auto) 0.0, Sodium Level 137, Potassium Level 4.0, Chloride Level 108H, Carbon Dioxide Level 20L, Anion Gap 9, Blood Urea Nitrogen 29H, Creatinine 1.11, Estimat Glomerular Filtration Rate 50, BUN/Creatinine Ratio 26, Glucose Level 195H, Calcium Level 8.2L, Phosphorus L evel 3.3, Magnesium Level 2.1 10/10/18 06:17: Glucometer 183H 10/10/18 11:55: Glucometer 172H Microbiology 10/08/18 Catheter Tip Culture - Preliminary, Resulted No growth 10/08/18 MRSA Screen - Final, Complete 10/08/18 Urine Culture - Preliminary, Resulted Enterobacter cloacae Enterococcus gallinarum 10/08/18 Gram Stain - Final, Resulted 10/08/18 Wound Culture - Preliminary, Resulted Pseudomonas aeruginosa Assessment/Plan Assessment/Plan Assessment/Plan Sepsis - probable secondary to Candidemia Intestinal Bleeding Fistula Recurrent Ventral hernia Microbiology came back with yeast seen on PICC line, gram negative david seen in urine and Pseudomonas found in abdominal wound. I had a discussion with pt and the plan is to treat all of these and get her out of the Hospital. I poke with different daughter at the bedside today and again talked about; once she is cleared from all the bacteria will plan surgery to try and repair the hernia deftect, do small bowel resection and get the abdomen closed. I spent approximately 40 minutes of critical care time with pt, at the bedside and going over chart. I personally held direct pressure in the wound to control the bleeding and used silver nitrate on the area (which seemed to slow the bleeding a little). I then directed nurse to place light weight over the area to continue the pressure. I monitored her BP because when I first saw her she was 74/56 and it slowly came up. I think she may need to be on clinimax if she isn't already and we will need to figure out nutrition for her and venous access. Have to make sure she does not have active bacteria or yeast in her blood. Clinical Quality Measures DVT/VTE Risk/Contraindication: Risk Factor Score Per Nursin RFS Level Per Nursing on Admit: 4+=Very High MANDA STEWART DO Oct 10, 2018 15:09
[2018-10-10] MEDS: VANCOMYCIN 1500 MG/NS 500 ML IVPB IV SCH ×2 (15:30)
[2018-10-11] VITALS (21 sets, daily range): BP systolic 82–110; BP diastolic 55–81
[2018-10-11] MEDS: HYDROCORTISONE 100 MG/2 ML (Solu-CORTEF) VIAL IV SCH ×4 (00:06→18:28)
[2018-10-11] MEDS: inSUlin ASPART (NovoLOG) 1 UNIT/0.01 ML (CHARGE PER UNIT) SC SCH ×4 (00:07→18:19)
[2018-10-11] MEDS: RT-ALBUTEROL/IPRATROPIUM 3 ML (DUONEB) VIAL INH SCH ×4 (02:57→19:47)
[2018-10-11 03:12] LABS: BASOPHILS % (AUTO) 0 % (0-10); EOSINOPHILS % (AUTO) 0 % (0-10); HEMATOCRIT 33 % (35-52); LYMPHOCYTES # (AUTO) 1.7 X 10^3 (1.0-4.0); LYMPHOCYTES % (AUTO) 10 % (12-44); MEAN CORPUSCULAR HEMOGLOBIN 31 PG (25-34); MEAN CORPUSCULAR HGB CONC 33 G/DL (32-36); MEAN CORPUSCULAR VOLUME 94 FL (80-99); MEAN PLATELET VOLUME 12.8 FL (7.4-10.4); MONOCYTES # (AUTO) 0.9 X 10^3 (0.0-1.0); MONOCYTES % (AUTO) 5 % (0-12); NEUTROPHILS % (AUTO) 84 % (42-75); PLATELET COUNT 234 10^3/uL (130-400); RED CELL DISTRIBUTION WIDTH 19.7 % (10.0-14.5); WHITE BLOOD COUNT 16.6 10^3/uL (4.3-11.0)
[2018-10-11 03:29] LABS: CALCIUM 8.2 MG/DL (8.5-10.1); CREATININE SERUM 1.09 MG/DL (0.60-1.30); MAGNESIUM 1.8 MG/DL (1.8-2.4); PHOSPHORUS 2.8 MG/DL (2.3-4.7); POTASSIUM 3.7 MMOL/L (3.6-5.0)
[2018-10-11] MEDS: MAGNESIUM 1 GM/100 ML IVPB 100 ML IV SCH (05:12)
[2018-10-11] MEDS: POTASSIUM CL 10MEQ/50ML IVPB 50 ML IV SCH (05:12)
[2018-10-11] MEDS: MEROPENEM 500 MG/SWFI 10 ML IV PUSH IV SCH ×6 (06:00→21:19)
[2018-10-11] MEDS: LACTATED RINGERS 1,000 ML IV SCH ×6 (06:00→12:53)
[2018-10-11 06:06] LABS: LYMPHOCYTES % (MANUAL) 9 %; MONOCYTES % (MANUAL) 4 %; NEUTROPHILS % (MANUAL) 87 %
--- NOTE | 2018-10-11 06:22 | Pulmonary Progress Note ---
Subjective Time Seen by a Provider: 06:22 Subjective/Events-last exam C/o mild SOB worse with exertion Sepsis Event Evaluation Height, Weight, BMI Height: 5'3.00" Weight: 263lbs. 0.0oz. 119.326367cx; 41.1 BMI Method:Actual Focused Exam Lactate Level 10/09/18 02:57: Lactic Acid Level 2.23*H 10/09/18 14:00: Lactic Acid Level 2.36*H 10/09/18 15:53: Lactic Acid Level 2.36*H Exam Exam Vital Signs Date Time Temp Pulse Resp B/P (MAP) Pulse Ox O2 Delivery O2 Flow Rate FiO2 10/11/18 06:00 93 15 97/69 (78) 95 Vapotherm 40.00 20.00 10/11/18 05:00 99 19 89/62 (71) 95 Vapotherm 40.00 20.00 10/11/18 04:00 94 Vapotherm 30.00 50 10/11/18 04:00 101 15 101/59 (73) 94 Vapotherm 40.00 20.00 10/11/18 03:00 90 20 94/70 (78) 94 Vapotherm 40.00 20.00 10/11/18 02:57 95 Vapotherm 30.00 40 10/11/18 02:00 98 13 106/76 (86) 91 Vapotherm 40.00 30.00 10/11/18 01:00 92 15 109/79 (89) 92 Vapotherm 40.00 30.00 10/11/18 01:00 95 10/11/18 00:00 94 Vapotherm 30.00 50 10/11/18 00:00 93 20 109/81 (90) 93 Vapotherm 40.00 30.00 10/10/18 23:00 112 18 93/66 (75) 95 Vapotherm 40.00 30.00 10/10/18 22:00 114 16 86/54 (65) 95 Vapotherm 40.00 30.00 10/10/18 21:00 80 16 85/55 (65) 95 Vapotherm 40.00 30.00 10/10/18 20:51 95 Vapotherm 30.00 40 10/10/18 20:00 85 12 85/55 (65) 95 Vapotherm 40.00 30.00 10/10/18 20:00 94 Vapotherm 30.00 50 10/10/18 19:45 97.6 10/10/18 19:00 85 13 89/63 (72) 96 Vapotherm 40.00 30.00 10/10/18 19:00 88 10/10/18 18:00 86 13 87/59 (68) 96 Vapotherm 40.00 30.00 10/10/18 17:00 87 29 88/63 (71) 96 Vapotherm 40.00 30.00 10/10/18 16:40 94 Vapotherm 30.00 50 10/10/18 16:00 91 14 83/61 (68) 96 Vapotherm 40.00 30.00 10/10/18 15:00 86 10 87/57 (67) 99 Vapotherm 40.00 30.00 10/10/18 14:14 93 Vapotherm 30.00 50 10/10/18 14:00 75 14 93/61 (72) 95 Vapotherm 40.00 30.00 10/10/18 13:00 71 20 92/68 (76) 93 Vapotherm 40.00 30.00 10/10/18 12:58 74 10/10/18 12:00 67 6 93/61 (72) 96 Vapotherm 40.00 30.00 10/10/18 12:00 93 Vapotherm 30.00 40 10/10/18 11:45 97.1 10/10/18 11:00 74 8 93/61 (72) 94 Vapotherm 40.00 30.00 10/10/18 10:00 83 15 94/64 (74) 94 Vapotherm 40.00 30.00 10/10/18 09:00 82 34 94/66 (75) 93 Vapotherm 40.00 30.00 10/10/18 09:00 Vapotherm 40.00 30.00 10/10/18 08:01 96 Vapotherm 30.00 50 10/10/18 08:00 72 10 92/63 (73) 96 Vapotherm 50.00 30.00 10/10/18 08:00 93 Vapotherm 30.00 50 10/10/18 08:00 96.8 10/10/18 07:00 74 10/10/18 07:00 69 14 109/82 (91) 95 Vapotherm 50.00 30.00 I & O 10/11/18 07:00 Intake Total 4130 ml Output Total 905 ml Balance 3225 ml Height & Weight Height: 5'3.00" Weight: 263lbs. 0.0oz. 119.260389xp; 41.1 BMI Method:Actual General Appearance: No Apparent Distress, WD/WN, Chronically ill, Obese HEENT: PERRL/EOMI, Pharynx Normal, Moist Mucous Membranes Respiratory: Chest Non Tender, Lungs Clear, Normal Breath Sounds, No Accessory Muscle Use, No Respiratory Distress Cardiovascular: Regular Rate, Rhythm, No Edema, No Gallop, No JVD, No Murmur, Normal Peripheral Pulses Capillary Refill: Less Than 3 Seconds Gastrointestinal: normal bowel sounds, soft, other (Large portion of small bowel visible, mesh visible, no signs of erythema or infection, there is normal bowel contents in wound. Now bleeding from left edge around intestine, looked like maybe from mucosa of intestine) Extremity: Normal Capillary Refill, Normal Inspection, Normal Range of Motion, Non Tender, No Calf Tenderness, No Pedal Edema Neurologic/Psychiatric: Alert, Oriented x3, No Motor/Sensory Deficits, Depr essed Affect Skin: Normal Color, Warm/Dry Lymphatic: No Adenopathy Results Lab Laboratory Tests 10/10/18 03:22 10/11/18 03:05 Assessment/Plan Assessment/Plan Severe Septic shock -Severe sepsis protocol -IVF -Continue Merrem, Vanco and Eraxis for now -MRSA swab is positive -Consult wound care -Levophed Candidiasis bacteremia -Eraxis Wound culture - pseudomonas -Continue Merrem for now Metabolic lactic acidosis -IVF pulmonary edema - secondary to IVF/sepsis protocol -Continue IVF for now and monitor -Change oxy mask to Vapotherm -BiPAP QHS and PRN -check ABG Recurrent Ventral hernia -Dr. Hallman has been following pt -Possible surgery today Hypomag -replace Intestinal bleeding Urinary tract infection Enterocutaneous fistula JESSICA BATEMAN DO Oct 11, 2018 06:22
--- NOTE | 2018-10-11 08:20 | Diagnostic Imaging Report ---
Indication: Septic shock, UTI and shortness of breath. Comparison made with prior examination of 10/10/2018. Findings: There is cardiomegaly. Lungs are clear. No pleural effusion or pneumothorax. Mediastinum unremarkable. There is a right jugular central venous catheter in place. Impression: No acute cardiopulmonary abnormality. Cardiomegaly. Dictated by: Dictated on workstation # [id number]
[2018-10-11] MEDS: PANTOPRAZOLE 40 MG (PROTONIX) VIAL IV SCH (09:31)
--- NOTE | 2018-10-11 11:20 | NUR ---
Pastoral care visit.
--- NOTE | 2018-10-11 11:28 | Progress Note-Hospitalist ---
Subjective HPI/CC On Admission Date Seen by Provider: Oct 11, 2018 Time Seen by Provider: 10:30 Chief complaint: Septic shock History of present illness: This is a 63-year-old white female patient of [facility] Dr. Schuster who presented to the ER with hypotension found to have septic shock requiring aggressive IV fluid resuscitation and empiric IV antibiotics. She has a long history of the very complicated ventral hernia status post intestinal surgery complications. She is maintained on TPN at home has had complicated UTIs requiring IV antibiotics and multiple hospital stays in the last [address] Hallman is her primary surgeon. She required a central line placement and Pseudomonas is growing from the abdominal wound and there is yeast on the PICC line blood culture. At this current time patient feels much better but is requiring Vapotherm oxygen. Subjective/Events-last exam Still having issues with hypotension We will place PICC line today to replace the one that she had taken out because it was noted to have yeast on blood cultures TPN will also be restarted once pick is replaced Checked meds and labs Review of Systems General: Fatigue Focused Exam Lactate Level 10/09/18 02:57: Lactic Acid Level 2.23*H 10/09/18 14:00: Lactic Acid Level 2.36*H 10/09/18 15:53: Lactic Acid Level 2.36*H Objective Exam Vital Signs Vital Signs Date Time Temp Pulse Resp B/P (MAP) Pulse Ox O2 Delivery O2 Flow Rate FiO2 10/11/18 16:00 82 16 110/72 (85) 95 Vapotherm 40.00 20.00 10/11/18 15:59 96.8 10/11/18 14:57 40 Capillary Refill : Less Than 3 Seconds General Appearance: No Apparent Distress, WD/WN, Chronically ill, Obese HEENT: PERRL/EOMI, Pharynx Normal, Moist Mucous Membranes Respiratory: Chest Non Tender, Lungs Clear, Normal Breath Sounds, No Accessory Muscle Use, No Respiratory Distress Cardiovascular: Regular Rate, Rhythm, No Edema, No Gallop, No JVD, No Murmur, Normal Peripheral Pulses Gastrointestinal: Normal Bowel Sounds, No Organomegaly, No Pulsatile Mass, Other (wound dressing intact) Back: Normal Inspection, No CVA Tenderness, No Vertebral Tenderness Extremity: Normal Capillary Refill, Normal Inspection, Normal Range of Motion, Non Tender, No Calf Tenderness, No Pedal Edema Neurologic/Psychiatric: Alert, Oriented x3, No Motor/Sensory Deficits, Depressed Affect Skin: Normal Color, Warm/Dry Lymphatic: No Adenopathy Results/Procedures Lab Laboratory Tests 10/11/18 03:05 Patient resulted labs reviewed. Assessment/Plan Assessment and Plan Assess & Plan/Chief Complaint Assessment: Septic shock Pseudomonas wound infection empirically placed on Meropenem since admit Yeast on PICC line BCx placed empirically on Eraxis Ventral hernia with complications preventing repair Recurrent UTI Plan: Monitor closely Vapotherm Wean O2 IV Abx PICC replacement TPN restarted Diagnosis/Problems Diagnosis/Problems (1) Septic shock Status: Acute (2) Renal insufficiency Status: Acute (3) Enterocutaneous fistula Status: Acute (4) Hemorrhage from wound Status: Acute (5) Urinary tract infection Status: Acute Qualifiers: Urinary tract infection type: site unspecified Hematuria presence: without hematuria Qualified Codes: N39.0 - Urinary tract infection, site not specified (6) Malnutrition Status: Acute (7) Weakness generalized Status: Acute Clinical Quality Measures DVT/VTE Risk/Contraindication: Risk Factor Score Per Nursin RFS Level Per Nursing on Admit: 4+=Very High CY CANDELARIO DO Oct 11, 2018 11:28
--- NOTE | 2018-10-11 12:06 | Physical Therapy Evaluation ---
PT Evaluation-General Medical Diagnosis Admission Date Oct 08, 2018 at 15:19 Medical Diagnosis: sepsis shock/UTI/wound hemorrhage Onset Date: Oct 08, 2018 Therapy Diagnosis Therapy Diagnosis: generalized weakness debility Height/Weight Height (Feet): 5 Height (Inches): 3.00 Weight (Pounds): 262 Weight (Ounces): 0.0 Precautions Precautions/Isolations: Contact Isolation, Fall Prevention, Standard Precautions Weight Bear Status Right Lower Extremity: Right Full Weight Bearing Left Lower Extremity: Left Weight Bearing/Tolerated Referral Physician: Lizzie Reason for Referral: Evaluation/Treatment Medical History Pertinent Medical History: Arthritis, DM, HTN, Hypothroidism Additional Medical History open fistula/herniation Current History EMS secondary to weakness/receiving TPN at home Reviewed History: Yes Social History Home: Single Level Current Living Status: Significant Other (he is a local company flatbed truck driver and hardly home ) Prior/Core FIM Prior Level of Function Therapy Code Descriptions/Definitions Functional [place] Measure: 0=Not Assessed/NA 4=Minimal Assistance 1=Total Assistance 5=Supervision or Setup 2=Maximal Assistance 6=Modified [place] 3=Moderate Assistance 7=Complete [place] Therapy Quality Codes: 6 Independent with activity with or without an assistive device 5 Patient requires set up or clean up by helper. Patient completes activity by themselves 4 Supervision or touching assist (CGA). [place] provide cues , steadying assist 3 The helper provides less than half the effort to complete the activity 2 The helper provides more than half the effort to complete the activity 1 Dependent. The helper does all the effort to complete an activity 7 Patient refused to complete or attempt activity 9 The patient did not perform the activity before the current illness or injury 88 Not attempted due to Medical conditions or safety concerns Functional Abilities and Goals: Independent: Patient completed the activities by him/herself, with or without an assistive device, with no assistance from a helper. Needed Some Help: Patient needed partial assistance from another person to complete activities. Dependent: A helper completed the activities for the patient. Unknown: Not Applicable: Bed Mobility: 6 Transfers (B,C,W/C) (FIM): 6 Gait: 1 Indoor Mobility (Ambulation): Independent Prior Devices Use: Walker PT Evaluation-Current Subjective Patient is very agreeable to OOB to recliner. Pain Numeric Pain Scale: 5-Moderate Pain Location: Lower Location Body Site: Abdomen Pain Description: Acute Objective Patient Orientation: Normal For Age Problem Solving: Fair Attachments: Oxygen (vapotherm), Ureña Catheter, IV ROM/Strength ROM Lower Extremities bilateral LE WFL/noted edema Strength Lower Extremities 3+/5 grossly bilaterally Integumentary/Posture Integumentary refer to nursing notes Bowel Incontinence: No Bladder Incontinence: Ureña Cath Posture WFL Neuromuscular (Tone, Coordination, Reflexes) grossly intact Sensory Vision: Functional Hearing: Functional Hand Dominance: Right Sensation Right Lower Extremit: Impaired Sensation Left Lower Extremity: Impaired Transfers Therapy Code Descriptions/Definitions Functional [place] Measure: 0=Not Assessed/NA 4=Minimal Assistance 1=Total Assistance 5=Supervision or Setup 2=Maximal Assistance 6=Modified [place] 3=Moderate Assistance 7=Complete [place] Transfers (B, C, W/C) (FIM): 3 Scootin Rollin Supine to/from Sit: 3 Sit to/from Stand: 3 bed t/f WC(FIM only if WC use): 3 patient has open wound/RN present to assist with mobility to recliner Gait Mode of Locomotion: Both Anticipated Mode of Locomotion: Both Balance Sitting Static: Fair Sitting Dynamic: Fair Standing Static: Fair Standing Dynamic: Fair Assessment/Needs 63 y.o. female, will benefit from skilled PT to address functional strength and mobility to improve current LOF and to safely return to home with family at maximum LOF. Rehab Potential: Fair PT Short Term Goals Short Term Goals Transfers (B,C,W/C) (FIM): 5 PT Joint Finisher Goals Residential Goals PT Joint Finisher Goals Time Frame: Nov 02, 2018 Transfers (B,C,W/C) (FIM): 6 Gait (FIM): 6 Gait distance (FIM): 3=150 ft Distance: 150' Gait Level of Assist: 6 Gait Assistive Device: FWW PT Plan Problem List Problem List: Activity Tolerance, Functional Strength, Balance, Gait, Transfer, Bed Mobility Treatment/Plan Treatment Plan: Continue Plan of Care Treatment Plan: Bed Mobility, Education, Functional Activity Marcelina, Functional Strength, Gait, Safety, Therapeutic Exercise, Transfers Treatment Duration: Nov 02, 2018 Frequency: 6 times per week Estimated Hrs Per Day: .25 hour per day Patient and/or Family Agrees t: Yes Safety Risks/Education Patient Education: Safety Issues Teaching Recipient: Patient Teaching Methods: Discussion Response to Teaching: Verbalize Understanding Discharge Recommendations Therapy D/C Recommendations: Home w/ Family Support, Physical Therapy Home Care Time/GCodes Time In: 1121 Time Out: 1140 Total Billed Treatment Time: 21 Total Billed Treatment 1 visit EVModC 21 min PRIMO JOSE PT Oct 11, 2018 12:06
--- NOTE | 2018-10-11 13:41 | Occupational Ther Daily Note ---
OT Current Status-Daily Note Mental Status/Objective Patient Orientation: Person, Place, Time, Situation Therapy Code Descriptions/Definitions Functional [place] Measure: 0=Not Assessed/NA 4=Minimal Assistance 1=Total Assistance 5=Supervision or Setup 2=Maximal Assistance 6=Modified [place] 3=Moderate Assistance 7=Complete [place] ADL-Treatment Therapy Code Descriptions/Definitions Functional [place] Measure: 0=Not Assessed/NA 4=Minimal Assistance 1=Total Assistance 5=Supervision or Setup 2=Maximal Assistance 6=Modified [place] 3=Moderate Assistance 7=Complete [place] Therapy Quality Codes: 6 Independent with activity with or without an assistive device 5 Patient requires set up or clean up by helper. Patient completes activity by themselves 4 Supervision or touching assist (CGA). [place] provide cues , steadying assist 3 The helper provides less than half the effort to complete the activity 2 The helper provides more than half the effort to complete the activity 1 Dependent. The helper does all the effort to complete an activity 7 Patient refused to complete or attempt activity 9 The patient did not perform the activity before the current illness or injury 88 Not attempted due to Medical conditions or safety concerns Grooming (FIM): 4 Bathing (FIM): 2 Bathing Location: L Arm, R Arm vitals during session remained well. O2 saturations were above 90% during TX. pt education on energy conservation techniques. pt verbalized understanding. pt remained sitting in recliner chair, post OT session, call light within reach, all needs met. NSG aware of pt. Education OT Patient Education: Energy conservation, Modified ADL techniques, Progress toward Goal/Update tx plan, Purpose of tx/functional activities, Reviewed precautions, Safety issues Teaching Recipient: Patient Teaching Methods: Demonstration, Discussion Response to Teaching: Verbalize Understanding, Return Demonstration OT Short Term Goals Short Term Goals Grooming(FIM): 5 Bathing(FIM): 5 Upper Body Dressing(FIM): 5 Lower Body Dressing(FIM): 5 Toileting(FIM): 5 Transfers (B,C,W/C) (FIM): 5 Toilet/Commode Transfer(FIM): 5 1=Demonstrate adherence to instructed precautions during ADL tasks. 2=Patient will verbalize/demonstrate understanding of assistive devices/modifications for ADL. 3=Patient will improve strength/tolerance for activity to enable patient to perform ADL's. OT Half-Way Goals Half-Way Goals Time Frame: Oct 23, 2018 Groomin Bathing(FIM): 6 Bathing Location: L Arm, R Arm, L Upper Leg, R Upper Leg, L Lower Leg (including foot), R Lower Leg (including foot), Chest, Abdomen, Buttocks, Perineal Area Upper Body Dressing(FIM): 6 Lower Body Dressing(FIM): 6 Toileting(FIM): 6 Transfers (B,C,W/C) (FIM): 6 Toilet/Commode Transfer(FIM): 6 Shower Transfer(FIM): 6 Additional Goals: 1-Demonstrate ADL Tasks, 2-Verbalize Understanding, 3- ImproveStrength/Marcelina 1=Demonstrate adherence to instructed precautions during ADL tasks. 2=Patient will verbalize/demonstrate understanding of assistive devices/modifications for ADL. 3=Patient will improve strength/tolerance for activity to enable patient to perform ADL's. OT Education/Plan Problem List/Assessment pt presents with functional limitations affecting areas of ADLS/ functional transfers with the above mention deficits. pt would benefit from OT services to increase independence with ADLS/ functional transfers. Treatment Plan/Plan of Care Patient would benefit from OT for education, treatment and training to promote independence in ADL's, mobility, safety and/or upper extremity function for ADL's. Plan of Care: ADL Retraining, Functional Mobility, Group Exercise/Act as Ind, UE Funct Exercise/Act Treatment Duration: Oct 23, 2018 Frequency: 5 times per week Estimated Hrs Per Day: .25 hour per day Agreement: Yes Rehab Potential: Fair JOSSE SANCHEZ OT Oct 11, 2018 13:41
--- NOTE | 2018-10-11 13:44 | Occupational Ther Daily Note ---
OT Current Status-Daily Note Subjective pt sitting in recliner chair upon in no apparent distress. NSG stated pt may participate in OT TX session. pt agreed to OT TX session with focus on increasing independence with ADLs. Pain Numeric Pain Scale: 0-No Pain Mental Status/Objective Patient Orientation: Person, Place, Time, Situation Therapy Code Descriptions/Definitions Functional [place] Measure: 0=Not Assessed/NA 4=Minimal Assistance 1=Total Assistance 5=Supervision or Setup 2=Maximal Assistance 6=Modified [place] 3=Moderate Assistance 7=Complete [place] Attachments: Ureña Catheter, IV, Oxygen, Telemetry ADL-Treatment Grooming (FIM): 4 (pt perform washing hair, combing hair, washing face, wshing hands. with increased timing secondary to activity tolerance, and MIN A required to brush back of hair secodnary to tolernace. ) Bathing (FIM): 2 (pt demo ability o wash ya UE with set up of items. activty stopped secodary to tolernace. ) Bathing Location: L Arm, R Arm itals during session remained well. O2 saturations were above 90% during TX. pt education on energy conservation techniques. pt verbalized understanding. pt remained sitting in recliner chair, post OT session, call light within reach, all needs met. NSG aware of pt. Education OT Patient Education: Energy conservation, Modified ADL techniques, Progress toward Goal/Update tx plan, Purpose of tx/functional activities, Safety issues Teaching Recipient: Patient Teaching Methods: Demonstration, Discussion Response to Teaching: Verbalize Understanding, Return Demonstration OT Short Term Goals Short Term Goals Grooming(FIM): 5 Bathing(FIM): 5 Upper Body Dressing(FIM): 5 Lower Body Dressing(FIM): 5 Toileting(FIM): 5 Transfers (B,C,W/C) (FIM): 5 Toilet/Commode Transfer(FIM): 5 1=Demonstrate adherence to instructed precautions during ADL tasks. 2=Patient will verbalize/demonstrate understanding of assistive devices/modifications for ADL. 3=Patient will improve strength/tolerance for activity to enable patient to perform ADL's. OT Assisted Goals Assisted Goals Time Frame: Oct 23, 2018 Grooming(FIM): 6 Bathing(FIM): 6 Bathing Location: L Arm, R Arm, L Upper Leg, R Upper Leg, L Lower Leg (including foot), R Lower Leg (including foot), Chest, Abdomen, Buttocks, Perineal Area Upper Body Dressing(FIM): 6 Lower Body Dressing(FIM): 6 Toileting(FIM): 6 Transfers (B,C,W/C) (FIM): 6 Toilet/Commode Transfer(FIM): 6 Shower Transfer(FIM): 6 Additional Goals: 1-Demonstrate ADL Tasks, 2-Verbalize Understanding, 3- ImproveStrength/Marcelina 1=Demonstrate adherence to instructed precautions during ADL tasks. 2=Patient will verbalize/demonstrate understanding of assistive devices/modifications for ADL. 3=Patient will improve strength/tolerance for activity to enable patient to perform ADL's. OT Education/Plan Problem List/Assessment Assessment: Decreased Activ Tolerance, Decreased Safety Aware, Decreased UE Strength, Dependent Transfers, Impaired Bed Mobility, Impaired Coordination, Impaired Funct Balance, Impaired I ADL's, Impaired Self-Care Skills pt presents with functional limitations affecting areas of ADLS/ functional transfers with the above mention deficits. pt would benefit from OT services to increase independence with ADLS/ functional transfers. Discharge Recommendations Plan/Recommendations: Continue POC Therapy D/C Recommendations: Acute Rehab Treatment Plan/Plan of Care Treatment,Training & Education: Yes Patient would benefit from OT for education, treatment and training to promote independence in ADL's, mobility, safety and/or upper extremity function for ADL's. Plan of Care: ADL Retraining, Functional Mobility, Group Exercise/Act as Ind, UE Funct Exercise/Act Treatment Duration: Oct 23, 2018 Frequency: 5 times per week Estimated Hrs Per Day: .25 hour per day Agreement: Yes Rehab Potential: Fair Time/GCodes Start Time: 13:15 Stop Time: 13:40 Billed Treatment Time ADL 25 minutes, 2 units JOSSE SANCHEZ OT Oct 11, 2018 13:44
[2018-10-11] MEDS: ANIDULAFUNGIN 100 MG/NS 100 ML IV SCH ×2 (14:38)
--- NOTE | 2018-10-11 15:21 | Progress Note ---
Subjective Time Seen by a Provider: 14:41 Subjective/Events-last exam Pt seen and examined, sitting comfortably in chair. The nurse states her BP has stayed above 100, off all pressors. Pt states no more bleeding from the midline wound and denies abdominal pain. Review of Systems General: Fatigue, Malaise Pulmonary: No Dyspnea, No Cough Cardiovascular: No: Chest Pain, Palpitations Gastrointestinal: No: Nausea, Vomiting, Abdominal Pain Focused Exam Lactate Level 10/09/18 02:57: Lactic Acid Level 2.23*H 10/09/18 14:00: Lactic Acid Level 2.36*H 10/09/18 15:53: Lactic Acid Level 2.36*H Objective Exam Vital Signs Date Time Temp Pulse Resp B/P (MAP) Pulse Ox O2 Delivery O2 Flow Rate FiO2 10/11/18 14:57 98 Vapotherm 15.00 40 10/11/18 14:00 87 15 100/65 (77) 94 Vapotherm 40.00 20.00 10/11/18 13:00 87 23 105/69 (81) 92 Vapotherm 40.00 20.00 10/11/18 12:40 91 10/11/18 12:00 93 21 103/68 (80) 90 Vapotherm 40.00 20.00 10/11/18 12:00 92 Vapotherm 15.00 40 10/11/18 11:00 95 21 89/59 (69) 92 Vapotherm 40.00 20.00 10/11/18 10:00 97.9 10/11/18 10:00 103 18 89/55 (66) 90 Vapotherm 40.00 20.00 10/11/18 09:00 98 22 82/63 (69) 93 Vapotherm 40.00 20.00 10/11/18 08:00 99 21 89/58 (68) 91 Vapotherm 40.00 20.00 10/11/18 08:00 92 Vapotherm 15.00 40 10/11/18 07:00 98 14 90/56 (67) 95 Vapotherm 40.00 20.00 10/11/18 07:00 101 10/11/18 06:57 96 Vapotherm 20.00 40 10/11/18 06:00 93 15 97/69 (78) 95 Vapotherm 40.00 20.00 10/11/18 05:00 99 19 89/62 (71) 95 Vapotherm 40.00 20.00 10/11/18 04:00 94 Vapotherm 30.00 50 10/11/18 04:00 101 15 101/59 (73) 94 Vapotherm 40.00 20.00 10/11/18 03:00 90 20 94/70 (78) 94 Vapotherm 40.00 20.00 10/11/18 02:57 95 Vapotherm 30.00 40 10/11/18 02:00 98 13 106/76 (86) 91 Vapotherm 40.00 30.00 10/11/18 01:00 92 15 109/79 (89) 92 Vapotherm 40.00 30.00 10/11/18 01:00 95 10/11/18 00:00 94 Vapotherm 30.00 50 10/11/18 00:00 93 20 109/81 (90) 93 Vapotherm 40.00 30.00 10/10/18 23:00 112 18 93/66 (75) 95 Vapotherm 40.00 30.00 10/10/18 22:00 114 16 86/54 (65) 95 Vapotherm 40.00 30.00 10/10/18 21:00 80 16 85/55 (65) 95 Vapotherm 40.00 30.00 10/10/18 20:51 95 Vapotherm 30.00 40 10/10/18 20:00 85 12 85/55 (65) 95 Vapotherm 40.00 30.00 10/10/18 20:00 94 Vapotherm 30.00 50 10/10/18 19:45 97.6 10/10/18 19:00 85 13 89/63 (72) 96 Vapotherm 40.00 30.00 10/10/18 19:00 88 10/10/18 18:00 86 13 87/59 (68) 96 Vapotherm 40.00 30.00 10/10/18 17:00 87 29 88/63 (71) 96 Vapotherm 40.00 30.00 10/10/18 16:40 94 Vapotherm 30.00 50 10/10/18 16:00 91 14 83/61 (68) 96 Vapotherm 40.00 30.00 I & O 10/11/18 07:00 Intake Total 4130 ml Output Total 1105 ml Balance 3025 ml Capillary Refill : Less Than 3 Seconds General Appearance: No Apparent Distress, WD/WN, Chronically ill, Obese HEENT: PERRL/EOMI, Pharynx Normal, Moist Mucous Membranes Respiratory: Chest Non Tender, Lungs Clear, Normal Breath Sounds, No Accessory Muscle Use, No Respiratory Distress Cardiovascular: Regular Rate, Rhythm, No Edema, No Gallop, No JVD, No Murmur, Normal Peripheral Pulses Gastrointestinal: normal bowel sounds, soft, other (Large portion of small bowel visible, mesh visible, no signs of erythema or infection, there is normal bowel contents in wound. Now bleeding from left edge around intestine, looked like maybe from mucosa of intestine) Extremity: No Calf Tenderness, No Pedal Edema Neurologic/Psychiatric: Alert, Oriented x3, No Motor/Sensory Deficits, Depressed Affect Skin: Normal Color, Warm/Dry Lymphatic: No Adenopathy Results Lab Laboratory Tests 10/10/18 17:56: Glucometer 165H 10/11/18 03:05: White Blood Count 16.6H, Red Blood Count 3.52L, Hemoglobin 11.0L, Hematocrit 33L , Mean Corpuscular Volume 94, Mean Corpuscular Hemoglobin 31, Mean Corpuscular Hemoglobin Concent 33, Red Cell Distribution Width 19.7H, Platelet Count 234, Mean Platelet Volume 12.8H, Neutrophils (%) (Auto) 84H, Lymphocytes (%) (Auto) 10L, Monocytes (%) (Auto) 5, Eosinophils (%) (Auto) 0, Basophils (%) (Auto) 0, Neutrophils # (Auto) 14.0H, Lymphocytes # (Auto) 1.7, Monocytes # (Auto) 0.9, Eo sinophils # (Auto) 0.0, Basophils # (Auto) 0.0, Neutrophils % (Manual) 87, Lymphocytes % (Manual) 9, Monocytes % (Manual) 4, Sodium Level 139, Potassium Level 3.7, Chloride Level 107, Carbon Dioxide Level 20L, Anion Gap 12, Blood Urea Nitrogen 29H, Creatinine 1.09, Estimat Glomerular Filtration Rate 51, BUN/Creatinine Ratio 27, Glucose Level 212H, Calcium Level 8.2L, Phosphorus Level 2.8, Magnesium Level 1.8 10/11/18 10:57: Glucometer 141H 10/11/18 14:50: Microbiology 10/08/18 Catheter Tip Culture - Preliminary, Resulted No growth 10/08/18 MRSA Screen - Final, Complete 10/08/18 Urine Culture - Preliminary, Resulted Enterobacter cloacae Enterococcus gallinarum 10/08/18 Gram Stain - Final, Resulted 10/08/18 Wound Culture - Preliminary, Resulted Pseudomonas aeruginosa Assessment/Plan Assessment/Plan Assessment/Plan Sepsis - probable secondary to Candidemia Intestinal Bleeding Fistula Recurrent Ventral hernia The plan is to monitor pt; have to make sure she does not have active bacteria or yeast in her blood. Will start her back on TPN through central line; need to hold off on new PICC line until we are sure she is not bacteremic and then can place PICC. OK to go to 4th floor. Clinical Quality Measures DVT/VTE Risk/Contraindication: Risk Factor Score Per Nursin RFS Level Per Nursing on Admit: 4+=Very High MANDA STEWART DO Oct 11, 2018 15:21
[2018-10-11] MEDS ORDERED: TROUGH ORDER-PHARMACY XX ONE (15:30)
[2018-10-11] MEDS ORDERED: VANCOMYCIN 1500 MG/NS 500 ML IVPB IV SCH ×2 (16:30)
[2018-10-11] MEDS: NOREPINEPHRINE 8 MG in NS (IVPB) 250 ML IV SCH (22:14)
[2018-10-12] VITALS (9 sets, daily range): BP systolic 97–128; BP diastolic 63–81
[2018-10-12] MEDS: HYDROCORTISONE 100 MG/2 ML (Solu-CORTEF) VIAL IV SCH ×4 (00:05→18:00)
[2018-10-12] MEDS: LACTATED RINGERS 1,000 ML IV SCH ×5 (00:30→17:58)
[2018-10-12] MEDS: inSUlin ASPART (NovoLOG) 1 UNIT/0.01 ML (CHARGE PER UNIT) SC SCH ×4 (01:01→17:58)
[2018-10-12] MEDS: RT-ALBUTEROL/IPRATROPIUM 3 ML (DUONEB) VIAL INH SCH ×4 (01:55→20:29)
[2018-10-12 04:02] LABS: BASOPHILS % (AUTO) 0 % (0-10); EOSINOPHILS % (AUTO) 0 % (0-10); HEMATOCRIT 32 % (35-52); HEMOGLOBIN 10.6 G/DL (11.5-16.0); LYMPHOCYTES # (AUTO) 2.2 X 10^3 (1.0-4.0); LYMPHOCYTES % (AUTO) 11 % (12-44); MEAN CORPUSCULAR HGB CONC 33 G/DL (32-36); MEAN CORPUSCULAR VOLUME 95 FL (80-99); MEAN PLATELET VOLUME 12.1 FL (7.4-10.4); MONOCYTES # (AUTO) 0.9 X 10^3 (0.0-1.0); MONOCYTES % (AUTO) 4 % (0-12); NEUTROPHILS # (AUTO) 16.9 X 10^3 (1.8-7.8); NEUTROPHILS % (AUTO) 85 % (42-75); PLATELET COUNT 264 10^3/uL (130-400); WHITE BLOOD COUNT 19.9 10^3/uL (4.3-11.0)
[2018-10-12 04:03] LABS: MEAN CORPUSCULAR HEMOGLOBIN 31 PG (25-34)
[2018-10-12 04:21] LABS: CALCIUM 8.1 MG/DL (8.5-10.1); CREATININE SERUM 1.02 MG/DL (0.60-1.30); MAGNESIUM 1.6 MG/DL (1.8-2.4); PHOSPHORUS 3.1 MG/DL (2.3-4.7); POTASSIUM 4.1 MMOL/L (3.6-5.0)
[2018-10-12 04:36] LABS: INR 1.2 (0.8-1.4); PROTHROMBIN TIME PATIENT 15.2 SEC (12.2-14.7)
[2018-10-12 04:46] LABS: ALBUMIN 2.2 GM/DL (3.2-4.5); BILIRUBIN,TOTAL 1.3 MG/DL (0.1-1.0); CALCIUM 8.2 MG/DL (8.5-10.1); CREATININE SERUM 1.03 MG/DL (0.60-1.30); MAGNESIUM 1.6 MG/DL (1.8-2.4); PHOSPHORUS 3.1 MG/DL (2.3-4.7); TOTAL PROTEIN 5.7 GM/DL (6.4-8.2)
[2018-10-12] MEDS: MEROPENEM 500 MG/SWFI 10 ML IV PUSH IV SCH ×2 (06:00)
[2018-10-12] MEDS: PANTOPRAZOLE 40 MG (PROTONIX) VIAL IV SCH (07:41)
[2018-10-12] MEDS: NOREPINEPHRINE 8 MG in NS (IVPB) 250 ML IV SCH (07:42)
--- NOTE | 2018-10-12 09:30 | NUR ---
REC'D PER WC FROM ICU. SEE ASSESSMENT. BEDSIDE REPORT FROM JAN FORMAN.
--- NOTE | 2018-10-12 09:30 | NUR ---
PT TRANSFERRED TO ROOM 412 VIA WC ACCOMPANIED BY THIS RN AND PT FAMILY. PT PERSONAL BELONGINGS SENT WITH PT TO NEW ROOM. REPORT GIVEN TO GILES FORMAN FOR CONTINUING CARE.
[2018-10-12] MEDS ORDERED: MEROPENEM 500 MG/SWFI 10 ML IV PUSH IV SCH ×2 (12:00)
--- NOTE | 2018-10-12 12:30 | Progress Note-Hospitalist ---
Subjective HPI/CC On Admission Date Seen by Provider: Oct 12, 2018 Time Seen by Provider: 10:30 Chief complaint: Septic shock History of present illness: This is a 63-year-old white female patient of [facility] Dr. Schuster who presented to the ER with hypotension found to have septic shock requiring aggressive IV fluid resuscitation and empiric IV antibiotics. She has a long history of the very complicated ventral hernia status post intestinal surgery complications. She is maintained on TPN at home has had complicated UTIs requiring IV antibiotics and multiple hospital stays in the last [address] Hallman is her primary surgeon. She required a central line placement and Pseudomonas is growing from the abdominal wound and there is yeast on the PICC line blood culture. At this current time patient feels much better but is requiring Vapotherm oxygen. 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 of Systems General: Fatigue Focused Exam Lactate Level Objective Exam Vital Signs Vital Signs Date Time Temp Pulse Resp B/P (MAP) Pulse Ox O2 Delivery O2 Flow Rate FiO2 10/12/18 16:52 97.0 85 20 124/76 (92) 96 High Flow N/C 5.00 10/12/18 09:50 5 Capillary Refill : Less Than 3 SecondsLess Than 3 Seconds General Appearance: No Apparent Distress, WD/WN, Chronically ill, Obese HEENT: PERRL/EOMI, Pharynx Normal, Moist Mucous Membranes Respiratory: Chest Non Tender, Lungs Clear, Normal Breath Sounds, No Accessory Muscle Use, No Respiratory Distress Cardiovascular: Regular Rate, Rhythm, No Edema, No Gallop, No JVD, No Murmur, Normal Peripheral Pulses Gastrointestinal: Normal Bowel Sounds, No Organomegaly, No Pulsatile Mass, Other (wound dressing intact) Back: Normal Inspection, No CVA Tenderness, No Vertebral Tenderness Extremity: Normal Capillary Refill, Normal Inspection, Normal Range of Motion, Non Tender, No Calf Tenderness, No Pedal Edema Neurologic/Psychiatric: Alert, Oriented x3, No Motor/Sensory Deficits, Depressed Affect Skin: Normal Color, Warm/Dry Lymphatic: No Adenopathy Results/Procedures Lab Laboratory Tests 10/12/18 03:00 10/12/18 03:55 10/12/18 04:10 Patient resulted labs reviewed. Assessment/Plan Assessment and Plan Assess & Plan/Chief Complaint Assessment: Septic shock-resolved now on 4th floor Pseudomonas wound infection empirically placed on Meropenem since admit Yeast on PICC line BCx placed empirically on Eraxis and DC PICC and BCx repeated and will replace PICC on Sunday Ventral hernia with complications preventing repair Recurrent UTI Plan: Monitor closely PT/OT Wean O2 IV Abx PICC replacement 10/13/18 TPN restarted Diagnosis/Problems Diagnosis/Problems (1) Septic shock Status: Acute (2) Renal insufficiency Status: Acute (3) Enterocutaneous fistula Status: Acute (4) Hemorrhage from wound Status: Acute (5) Urinary tract infection Status: Acute Qualifiers: Urinary tract infection type: site unspecified Hematuria presence: without hematuria Qualified Codes: N39.0 - Urinary tract infection, site not specified (6) Malnutrition Status: Acute (7) Weakness generalized Status: Acute Clinical Quality Measures DVT/VTE Risk/Contraindication: Risk Factor Score Per Nursin RFS Level Per Nursing on Admit: 4+=Very High CY CANDELARIO DO Oct 12, 2018 12:30
--- NOTE | 2018-10-12 12:40 | Physical Therapy Daily Note ---
PT Daily Note-Current Subjective Pt agreeable to PT. Reports she sat in the chair most of yesterday. Transfers Therapy Code Descriptions/Definitions Functional Manns Choice Measure: 0=Not Assessed/NA 4=Minimal Assistance 1=Total Assistance 5=Supervision or Setup 2=Maximal Assistance 6=Modified Manns Choice 3=Moderate Assistance 7=Complete Manns Choice Therapy Quality Codes: 6 Independent with activity with or without an assistive device 5 Patient requires set up or clean up by helper. Patient completes activity by themselves 4 Supervision or touching assist (CGA). [place] provide cues , steadying assist 3 The helper provides less than half the effort to complete the activity 2 The helper provides more than half the effort to complete the activity 1 Dependent. The helper does all the effort to complete an activity 7 Patient refused to complete or attempt activity 9 The patient did not perform the activity before the current illness or injury 88 Not attempted due to Medical conditions or safety concerns Weight Bearing Right Lower Extremity: Right Full Weight Bearing Left Lower Extremity: Left Weight Bearing/Tolerated Treatments Used an JOSSIE bandage to keep her abdominal bandages in place. Sup to sit with min assist. Sit to stand with CGA. Pt took 3-4 steps to transfer to the chair with her fWW. Pt up in chair with legs elevated. Pt performed AP, QS and GS while in the chair x 10 reps. Needs met post treatment. Assessment Current Status: Good Progress Tolerated well. PT Short Term Goals Short Term Goals Transfers (B,C,W/C) (FIM): 5 PT Disaster Recovery Consultant Goals Detention Goals PT Disaster Recovery Consultant Goals Time Frame: Nov 02, 2018 Transfers (B,C,W/C) (FIM): 6 Gait (FIM): 6 Gait distance (FIM): 3=150 ft Distance: 150' Gait Level of Assist: 6 Gait Assistive Device: FWW PT Plan Problem List Problem List: Activity Tolerance, Functional Strength, Safety Treatment/Plan Treatment Plan: Continue Plan of Care Treatment Plan: Bed Mobility, Education, Functional Activity Marcelina, Functional Strength, Gait, Safety, Therapeutic Exercise, Transfers Treatment Duration: Nov 02, 2018 Frequency: 6 times per week Estimated Hrs Per Day: .25 hour per day Patient and/or Family Agrees t: Yes Safety Risks/Education Patient Education: Safety Issues Teaching Recipient: Patient Teaching Methods: Discussion Response to Teaching: Reinforcement Needed Time/GCodes Time In: 1110 Time Out: 1133 Total Billed Treatment Time: 23 Total Billed Treatment visit FA 23 MAVERICK WRAY PT Oct 12, 2018 12:40
--- NOTE | 2018-10-12 13:23 | Progress Note ---
Subjective Time Seen by a Provider: 11:58 Subjective/Events-last exam Pt seen and examined, states she still feels tired and having some twinges of pain in abdomen. She also thinks it started bleeding again, "happened when I got up to move down to 4th floor". Review of Systems General: No Chills, No Night Sweats; Fatigue, Malaise Pulmonary: No Dyspnea, No Cough Cardiovascular: No: Chest Pain, Palpitations Gastrointestinal: No: Nausea, Vomiting Focused Exam Lactate Level 10/09/18 14:00: Lactic Acid Level 2.36*H 10/09/18 15:53: Lactic Acid Level 2.36*H Objective Exam Vital Signs Date Time Temp Pulse Resp B/P (MAP) Pulse Ox O2 Delivery O2 Flow Rate FiO2 10/12/18 12:30 97.3 82 20 119/63 (81) 94 Nasal Cannula 5.00 10/12/18 09:54 97.4 68 19 127/74 (91) 94 Nasal Cannula 5.00 10/12/18 09:50 94 Nasal Cannula 5 10/12/18 09:30 Nasal Cannula 5.00 10/12/18 08:00 96 Vapotherm 8.00 35 10/12/18 08:00 75 24 103/73 (83) 98 Vapotherm 35.00 8.00 10/12/18 07:00 74 10/12/18 04:00 98.0 10/12/18 04:00 80 104/65 (78) 98 Vapotherm 35.00 8.00 10/12/18 04:00 94 Vapotherm 10.00 40 10/12/18 03:00 76 96 Vapotherm 35.00 8.00 10/12/18 02:00 73 97 Vapotherm 35.00 8.00 10/12/18 01:55 Vapotherm 10.00 40 10/12/18 01:30 42 111/70 (84) 86 Vapotherm 40.00 20.00 10/12/18 01:00 74 10/12/18 00:00 97.3 10/12/18 00:00 78 14 95 Vapotherm 40.00 20.00 10/12/18 00:00 94 Vapotherm 10.00 40 10/11/18 22:06 97/66 (76) 10/11/18 22:00 73 34 95 Vapotherm 40.00 20.00 10/11/18 21:00 81 23 100 Vapotherm 40.00 20.00 10/11/18 20:30 105/64 (78) 10/11/18 20:00 94 Vapotherm 10.00 40 10/11/18 20:00 80 20 105/64 (78) 95 Vapotherm 40.00 20.00 10/11/18 19:47 93 Vapotherm 10.00 40 10/11/18 19:00 78 10/11/18 19:00 77 12 106/63 (77) 97 Vapotherm 40.00 20.00 10/11/18 16:00 94 Vapotherm 10.00 40 10/11/18 16:00 82 16 110/72 (85) 95 Vapotherm 40.00 20.00 10/11/18 15:59 96.8 10/11/18 15:00 88 8 106/66 (79) 99 Vapotherm 40.00 20.00 10/11/18 14:57 98 Vapotherm 15.00 40 10/11/18 14:00 87 15 100/65 (77) 94 Vapotherm 40.00 20.00 I & O 10/12/18 07:00 Intake Total 0 ml Output Total 1085 ml Balance -1085 ml Capillary Refill : Less Than 3 SecondsLess Than 3 Seconds General Appearance: No Apparent Distress, Chronically ill, Obese HEENT: PERRL/EOMI, Moist Mucous Membranes Respiratory: Chest Non Tender, Lungs Clear, Normal Breath Sounds, No Accessory Muscle Use, No Respiratory Distress Cardiovascular: Regular Rate, Rhythm, No Murmur Gastrointestinal: normal bowel sounds, soft, other (Large portion of small bowel visible, mesh visible, no signs of erythema or infection, there is normal bowel contents in wound. Now bleeding from left edge around intestine, looked like maybe from mucosa of intestine) Extremity: Normal Capillary Refill, No Calf Tenderness, Pedal Edema (+2 edema in both legs below knees) Neurologic/Psychiatric: Alert, Oriented x3, Depressed Affect Results Lab Laboratory Tests 10/11/18 14:50: Vancomycin Level Trough 17.9 10/11/18 18:16: Glucometer 141H 10/12/18 03:00: Sodium Level 139, Potassium Level 4.1, Chloride Level 109H, Carbon Dioxide Level 20L, Anion Gap 10, Blood Urea Nitrogen 25H, Creatinine 1.02, Estimat Glomerular Filtration Rate 55, BUN/Creatinine Ratio 25, Glucose Level 154H, Calcium Level 8.1L, Phosphorus Level 3.1, Magnesium Level 1.6L 10/12/18 03:55: White Blood Count 19.9H, Red Blood Count 3.37L, Hemoglobin 10.6L, Hematocrit 32L , Mean Corpuscular Volume 95, Mean Corpuscular Hemoglobin 31, Mean Corpuscular Hemoglobin Concent 33, Red Cell Distribution Width 20.0H, Platelet Count 264, Mean Platelet Volume 12.1H, Neutrophils (%) (Auto) 85H, Lymphocytes (%) (Auto) 11L, Monocytes (%) (Auto) 4, Eosinophils (%) (Auto) 0, Basophils (%) (Auto) 0, Neutrophils # (Auto) 16.9H, Lymphocytes # (Auto) 2.2, Monocytes # (Auto) 0.9, Eosinophils # (Auto) 0.0, Basophils # (Auto) 0.0 10/12/18 04:10: Prothrombin Time 15.2H, INR Comment 1.2, Sodium Level 141, Potassium Level 4.0, Chloride Level 110H, Carbon Dioxide Level 21, Anion Gap 10, Blood Urea Nitrogen 26H, Creatinine 1.03, Estimat Glomerular Filtration Rate 54, BUN/Creatinine Ratio 25, Glucose Level 155H, Calcium Level 8.2L, Corrected Calcium 9.6, Phospho tana Level 3.1, Magnesium Level 1.6L, Total Bilirubin 1.3H, Aspartate Amino Transf (AST/SGOT) 97H, Alanine Aminotransferase (ALT/SGPT) 61H, Alkaline Phosphatase 83, Total Protein 5.7L, Albumin 2.2L, Triglycerides Level 150H 10/12/18 12:23: Glucometer 140H Microbiology 10/08/18 Catheter Tip Culture - Preliminary, Resulted YEAST 10/08/18 MRSA Screen - Final, Complete 10/08/18 Urine Culture - Preliminary, Resulted Enterobacter cloacae Enterococcus gallinarum See Comments 10/08/18 Gram Stain - Final, Complete 10/08/18 Wound Culture - Final, Complete Mixed Bacterial Deisy Pseudomonas aeruginosa Assessment/Plan Assessment/Plan Assessment/Plan Sepsis - probable secondary to Candidemia Intestinal Bleeding Fistula Recurrent Ventral hernia Will switch pt to Cipro; which will cover the Urine and bacteria found in abdominal wound. Yeast sensitivity still not back; will wait on that. Will start her back on TPN through central line; need to hold off on new PICC line until we are sure she is not bacteremic and then can place PICC. Will continue to monitor her abdomen; may repeat blood culture tomorrow. Need to find out the length of time needed to treat the yeast in order to make further decisions. Clinical Quality Measures DVT/VTE Risk/Contraindication: Risk Factor Score Per Nursin RFS Level Per Nursing on Admit: 4+=Very High MANDA STEWART DO Oct 12, 2018 13:23
[2018-10-12] MEDS: ANIDULAFUNGIN 100 MG/NS 100 ML IV SCH ×2 (16:02)
[2018-10-12] MEDS ORDERED: SODIUM ACETATE IV SCH ×11 (18:00)
[2018-10-12] MEDS ORDERED: [UNRECOGNIZED DRUG - OTHER] IV SCH ×11 (18:00)
[2018-10-12] MEDS ORDERED: POTASSIUM CHLORIDE IV SCH ×11 (18:00)
[2018-10-12] MEDS: CIPROFLOXACIN IV 400MG/200ML 200 ML IV SCH (20:42)
[2018-10-13] VITALS: BP 129/85
[2018-10-13] MEDS: HYDROCORTISONE 100 MG/2 ML (Solu-CORTEF) VIAL IV SCH ×4 (00:40→18:02)
[2018-10-13] MEDS: inSUlin ASPART (NovoLOG) 1 UNIT/0.01 ML (CHARGE PER UNIT) SC SCH ×4 (00:40→17:41)
[2018-10-13] MEDS: RT-ALBUTEROL/IPRATROPIUM 3 ML (DUONEB) VIAL INH SCH ×4 (02:47→20:51)
[2018-10-13 04:00] VITALS: BP 127/75
[2018-10-13] MEDS: LACTATED RINGERS 1,000 ML IV SCH ×2 (05:53→20:07)
[2018-10-13 06:11] LABS: BASOPHILS % (AUTO) 0 % (0-10); EOSINOPHILS % (AUTO) 0 % (0-10); HEMATOCRIT 33 % (35-52); HEMOGLOBIN 10.6 G/DL (11.5-16.0); LYMPHOCYTES # (AUTO) 1.5 X 10^3 (1.0-4.0); LYMPHOCYTES % (AUTO) 9 % (12-44); MEAN CORPUSCULAR HEMOGLOBIN 32 PG (25-34); MEAN CORPUSCULAR HGB CONC 33 G/DL (32-36); MEAN CORPUSCULAR VOLUME 98 FL (80-99); MEAN PLATELET VOLUME 12.1 FL (7.4-10.4); MONOCYTES # (AUTO) 0.9 X 10^3 (0.0-1.0); MONOCYTES % (AUTO) 5 % (0-12); NEUTROPHILS % (AUTO) 86 % (42-75); PLATELET COUNT 244 10^3/uL (130-400); RED CELL DISTRIBUTION WIDTH 20.3 % (10.0-14.5); WHITE BLOOD COUNT 16.3 10^3/uL (4.3-11.0)
[2018-10-13 06:27] LABS: CREATININE SERUM 1.07 MG/DL (0.60-1.30); PHOSPHORUS 2.1 MG/DL (2.3-4.7); POTASSIUM 3.9 MMOL/L (3.6-5.0)
[2018-10-13 07:19] LABS: SMEAR SCAN COMMENT YES
--- NOTE | 2018-10-13 07:45 | Pulmonary Progress Note ---
Subjective Time Seen by a Provider: 07:50 Subjective/Events-last exam Pt appears to be doing better Sepsis Event Evaluation Height, Weight, BMI Height: 5'3.00" Weight: 279lbs. 5.0oz. 126.908366pn; 41.1 BMI Method:Actual Exam Exam Vital Signs Date Time Temp Pulse Resp B/P (MAP) Pulse Ox O2 Delivery O2 Flow Rate FiO2 10/13/18 04:00 97.5 79 16 127/75 (92) 93 High Flow N/C 5.00 10/13/18 02:47 93 Nasal Cannula 5.00 10/13/18 00:05 96.9 10/13/18 00:00 96.3 73 16 129/85 (100) 92 High Flow N/C 5.00 10/12/18 21:00 Nasal Cannula 4.00 10/12/18 20:29 Nasal Cannula 4.00 10/12/18 19:12 97.4 79 20 128/81 (97) 94 High Flow N/C 5.00 10/12/18 16:52 97.0 85 20 124/76 (92) 96 High Flow N/C 5.00 10/12/18 15:38 94 Nasal Cannula 5.00 10/12/18 12:30 97.3 82 20 119/63 (81) 94 Nasal Cannula 5.00 10/12/18 09:54 97.4 68 19 127/74 (91) 94 Nasal Cannula 5.00 10/12/18 09:50 94 Nasal Cannula 5 10/12/18 09:30 Nasal Cannula 5.00 10/12/18 08:00 96 Vapotherm 8.00 35 10/12/18 08:00 75 24 103/73 (83) 98 Vapotherm 35.00 8.00 I & O 10/13/18 07:00 Intake Total 1140 ml Output Total 375 ml Balance 765 ml Height & Weight Height: 5'3.00" Weight: 279lbs. 5.0oz. [id number]; 41.1 BMI Method:Actual General Appearance: No Apparent Distress, WD/WN, Chronically ill, Obese HEENT: PERRL/EOMI, Pharynx Normal, Moist Mucous Membranes Respiratory: Chest Non Tender, Lungs Clear, Normal Breath Sounds, No Accessory Muscle Use, No Respiratory Distress Cardiovascular: Regular Rate, Rhythm, No Edema, No Gallop, No JVD, No Murmur, Normal Peripheral Pulses Capillary Refill: Less Than 3 Seconds Gastrointestinal: normal bowel sounds, soft, other (Large portion of small bowel visible, mesh visible, no signs of erythema or infection, there is normal bowel contents in wound. Now bleeding from left edge around intestine, looked like maybe from mucosa of intestine) Extremity: Normal Capillary Refill, Normal Inspection, Normal Range of Motion, Non Tender, No Calf Tenderness, No Pedal Edema Neurologic/Psychiatric: Alert, Oriented x3, No Motor/Sensory Deficits, Depressed Affect Skin: Normal Color, Warm/Dry Lymphatic: No Adenopathy Results Lab Laboratory Tests 10/12/18 03:00 10/12/18 03:55 10/12/18 04:10 10/13/18 05:50 Assessment/Plan Assessment/Plan Severe Septic shock - improving -Cipro, and Eraxis - wound care Candidiasis bacteremia -Eraxis Wound culture - pseudomonas -Cipro Metabolic lactic acidosis -IVF pulmonary edema - secondary to IVF/sepsis protocol -BNP - Pt may need lasix -BiPAP QHS and PRN Recurrent Ventral hernia -Dr. Hallman has been following pt -Possible surgery today Intestinal bleeding Urinary tract infection Enterocutaneous fistula JESSICA BATEMAN DO Oct 13, 2018 07:45
[2018-10-13 08:00] VITALS: BP 124/79
[2018-10-13] MEDS: CIPROFLOXACIN IV 400MG/200ML 200 ML IV SCH ×2 (08:22→20:08)
[2018-10-13] MEDS: PANTOPRAZOLE 40 MG (PROTONIX) VIAL IV SCH (08:22)
[2018-10-13 12:08] VITALS: BP 115/59
--- NOTE | 2018-10-13 13:27 | Progress Note-Hospitalist ---
Subjective HPI/CC On Admission Date Seen by Provider: Oct 13, 2018 Time Seen by Provider: 12:30 Chief complaint: Septic shock History of present illness: This is a 63-year-old white female patient of [facility] Dr. Schuster who presented to the ER with hypotension found to have septic shock requiring aggressive IV fluid resuscitation and empiric IV antibiotics. She has a long history of the very complicated ventral hernia status post intestinal surgery complications. She is maintained on TPN at home has had complicated UTIs requiring IV antibiotics and multiple hospital stays in the last [address] Hallman is her primary surgeon. She required a central line placement and Pseudomonas is growing from the abdominal wound and there is yeast on the PICC line blood culture. At this current time patient feels much better but is requiring Vapotherm oxygen. Subjective/Events-last exam Patient much improved Lasix will be given for elevated BNP due to volume overload from fluids given during septic shock Blood cultures have been redrawn Blood sugars 370 since TPN was restarted Patient feels pretty good other than feeling swollen We will keep catheter in due to diuresis plan for today Denies any pain Wants to go home as soon as possible Overall very declined in weeks since septic shock Maintain on broad-spectrum antibiotics and antifungals Review of Systems General: Fatigue Pulmonary: Dyspnea Cardiovascular: Edema Objective Exam Vital Signs Vital Signs Date Time Temp Pulse Resp B/P (MAP) Pulse Ox O2 Delivery O2 Flow Rate FiO2 10/13/18 16:55 97.6 69 18 128/76 (93) 94 High Flow N/C 3.00 10/12/18 09:50 5 Capillary Refill : Less Than 3 SecondsLess Than 3 Seconds General Appearance: No Apparent Distress, WD/WN, Chronically ill, Obese HEENT: PERRL/EOMI, Pharynx Normal, Moist Mucous Membranes Respiratory: Chest Non Tender, Lungs Clear, Normal Breath Sounds, No Accessory Muscle Use, No Respiratory Distress Cardiovascular: Regular Rate, Rhythm, No Gallop, No JVD, No Murmur, Normal Peripheral Pulses Gastrointestinal: Normal Bowel Sounds, No Organomegaly, No Pulsatile Mass, Other (wound dressing intact) Back: Normal Inspection, No CVA Tenderness, No Vertebral Tenderness Extremity: Normal Capillary Refill, Normal Inspection, Normal Range of Motion, Non Tender, No Calf Tenderness, Pedal Edema Neurologic/Psychiatric: Alert, Oriented x3, No Motor/Sensory Deficits, Depressed Affect Skin: Normal Color, Warm/Dry Lymphatic: No Adenopathy Results/Procedures Lab Laboratory Tests 10/13/18 05:50 Patient resulted labs reviewed. Assessment/Plan Assessment and Plan Assess & Plan/Chief Complaint Assessment: Septic shock-resolved now on 4th floor Pseudomonas wound infection empirically placed on Meropenem since admit Yeast on PICC line BCx placed empirically on Eraxis and DC PICC and BCx repeated and will replace PICC on Sunday Ventral hernia with complications preventing repair Recurrent UTI Volume overload Plan: Monitor closely PT/OT Wean O2 IV Abx PICC replacement 10/13/18 TPN restarted IV Lasix per DR Samuel Diagnosis/Problems Diagnosis/Problems (1) Septic shock Status: Acute (2) Renal insufficiency Status: Acute (3) Enterocutaneous fistula Status: Acute (4) Hemorrhage from wound Status: Acute (5) Urinary tract infection Status: Acute Qualifiers: Urinary tract infection type: site unspecified Hematuria presence: without hematuria Qualified Codes: N39.0 - Urinary tract infection, site not specified (6) Malnutrition Status: Acute (7) Weakness generalized Status: Acute Clinical Quality Measures DVT/VTE Risk/Contraindication: Risk Factor Score Per Nursin RFS Level Per Nursing on Admit: 4+=Very High CY CANDELARIO DO Oct 13, 2018 13:27
--- NOTE | 2018-10-13 14:43 | Progress Note ---
Subjective Time Seen by a Provider: 13:38 Subjective/Events-last exam Pt seen and examined, no changes. Pt states she has minimal pain around hernia/fistula. TPN has been started. Review of Systems General: Fatigue, Malaise Pulmonary: No Dyspnea, No Cough Cardiovascular: No: Chest Pain, Palpitations Gastrointestinal: Abdominal Pain; No: Nausea, Vomiting Genitourinary: No Dysuria, No Frequency Objective Exam Vital Signs Date Time Temp Pulse Resp B/P (MAP) Pulse Ox O2 Delivery O2 Flow Rate FiO2 10/13/18 12:08 97.6 64 20 115/59 (77) 94 High Flow N/C 4.00 10/13/18 09:00 Nasal Cannula 5.00 10/13/18 08:00 97.0 73 19 124/79 (94) 94 High Flow N/C 4.00 10/13/18 04:00 97.5 79 16 127/75 (92) 93 High Flow N/C 5.00 10/13/18 02:47 93 Nasal Cannula 5.00 10/13/18 00:05 96.9 10/13/18 00:00 96.3 73 16 129/85 (100) 92 High Flow N/C 5.00 10/12/18 21:00 Nasal Cannula 4.00 10/12/18 20:29 Nasal Cannula 4.00 10/12/18 19:12 97.4 79 20 128/81 (97) 94 High Flow N/C 5.00 10/12/18 16:52 97.0 85 20 124/76 (92) 96 High Flow N/C 5.00 10/12/18 15:38 94 Nasal Cannula 5.00 I & O 10/13/18 07:00 Intake Total 2340 ml Output Total 1050 ml Balance 1290 ml Capillary Refill : Less Than 3 SecondsLess Than 3 Seconds General Appearance: No Apparent Distress, Chronically ill, Obese HEENT: PERRL/EOMI, Pharynx Normal, Moist Mucous Membranes Respiratory: Chest Non Tender, Lungs Clear, Normal Breath Sounds, No Accessory Muscle Use, No Respiratory Distress Cardiovascular: Regular Rate, Rhythm, No Murmur, Normal Peripheral Pulses Gastrointestinal: normal bowel sounds, soft, other (Large portion of small bowel visible, mesh visible, no signs of erythema or infection, there is normal bowel contents in wound. Stopped bleeding from left edge around intestine, however now it looks like it is bleeding from the excoriated skin) Extremity: Non Tender, No Calf Tenderness, No Pedal Edema Neurologic/Psychiatric: Alert, Oriented x3, Depressed Affect Skin: Normal Color, Warm/Dry Lymphatic: No Adenopathy Results Lab Laboratory Tests 10/12/18 17:55: Glucometer 133H 10/13/18 00:10: Glucometer 370H 10/13/18 05:37: Glucometer 328H 10/13/18 05:50: White Blood Count 16.3H, Red Blood Count 3.32L, Hemoglobin 10.6L, Hematocrit 33L , Mean Corpuscular Volume 98, Mean Corpuscular Hemoglobin 32, Mean Corpuscular Hemoglobin Concent 33, Red Cell Distribution Width 20.3H, Platelet Count 244, Mean Platelet Volume 12.1H, Neutrophils (%) (Auto) 86H, Lymphocytes (%) (Auto) 9L, Monocytes (%) (Auto) 5, Eosinophils (%) (Auto) 0, Basophils (%) (Auto) 0, Neutrophils # (Auto) 14.0H, Lymphocytes # (Auto) 1.5, Monocytes # (Auto) 0.9, Eosinophils # (Auto) 0.0, Basophils # (Auto) 0.0, Sodium Level 140, Potassium Level 3.9, Chloride Level 107, Carbon Dioxide Level 21, Anion Gap 12, Blood Urea Nitrogen 25H, Creatinine 1.07, Estimat Glomerular Filtration Rate 52, BUN/Creatinine Ratio 23, Glucose Level 371H, Calcium Level 8.0L, Phosphorus Level 2.1L, Magnesium Level 2.0, B-Type Natriuretic Peptide 935.4H, Smear Scan YES 10/13/18 12:14: Glucometer 205H Microbiology 10/08/18 Catheter Tip Culture - Final, Complete Olga Lidia lipolytica 10/08/18 MRSA Screen - Final, Complete 10/08/18 Urine Culture - Final, Complete Enterobacter cloacae Enterococcus gallinarum See Comments 10/08/18 Gram Stain - Final, Complete 10/08/18 Wound Culture - Final, Complete Mixed Bacterial Deisy Pseudomonas aeruginosa Assessment/Plan Assessment/Plan Assessment/Plan Sepsis - probable secondary to Candidemia Intestinal Bleeding Fistula Recurrent Ventral hernia New blood cultures drawn today; will wait to see if yeast still grows. Continue Cipro to treat Urine and bacteria in abdominal wound. Yeast sensitivity still not back; will wait on that. TPN has started through central line; need to hold off on new PICC line until we are sure she is not bacteremic and then can place PICC. Still have to find out the length of time needed to treat the yeast in order to make further decisions. Clinical Quality Measures DVT/VTE Risk/Contraindication: Risk Factor Score Per Nursin RFS Level Per Nursing on Admit: 4+=Very High MANDA STEWART DO Oct 13, 2018 14:43
[2018-10-13] MEDS: ANIDULAFUNGIN 100 MG/NS 100 ML IV SCH ×2 (15:37)
[2018-10-13 16:55] VITALS: BP 128/76
[2018-10-13] MEDS ORDERED: POTASSIUM CHLORIDE IV SCH ×11 (18:00)
[2018-10-13] MEDS ORDERED: SODIUM ACETATE IV SCH ×11 (18:00)
[2018-10-13] MEDS ORDERED: [UNRECOGNIZED DRUG - OTHER] IV SCH ×11 (18:00)
[2018-10-13 20:30] VITALS: BP 137/82
[2018-10-14 00:03] VITALS: BP 135/75
[2018-10-14] MEDS: HYDROCORTISONE 100 MG/2 ML (Solu-CORTEF) VIAL IV SCH ×4 (00:30→18:30)
[2018-10-14] MEDS: inSUlin ASPART (NovoLOG) 1 UNIT/0.01 ML (CHARGE PER UNIT) SC SCH ×4 (00:30→18:29)
[2018-10-14] MEDS: RT-ALBUTEROL/IPRATROPIUM 3 ML (DUONEB) VIAL INH SCH ×5 (04:18→19:59)
[2018-10-14 04:25] VITALS: BP 130/81
[2018-10-14 06:04] LABS: BASOPHILS % (AUTO) 0 % (0-10); EOSINOPHILS % (AUTO) 0 % (0-10); HEMATOCRIT 33 % (35-52); HEMOGLOBIN 10.7 G/DL (11.5-16.0); LYMPHOCYTES # (AUTO) 1.2 X 10^3 (1.0-4.0); LYMPHOCYTES % (AUTO) 8 % (12-44); MEAN CORPUSCULAR HEMOGLOBIN 32 PG (25-34); MEAN CORPUSCULAR HGB CONC 33 G/DL (32-36); MEAN CORPUSCULAR VOLUME 99 FL (80-99); MEAN PLATELET VOLUME 11.9 FL (7.4-10.4); MONOCYTES # (AUTO) 1.1 X 10^3 (0.0-1.0); MONOCYTES % (AUTO) 7 % (0-12); NEUTROPHILS # (AUTO) 13.5 X 10^3 (1.8-7.8); NEUTROPHILS % (AUTO) 86 % (42-75); PLATELET COUNT 272 10^3/uL (130-400); RED CELL DISTRIBUTION WIDTH 20.4 % (10.0-14.5); WHITE BLOOD COUNT 15.7 10^3/uL (4.3-11.0)
[2018-10-14 06:24] LABS: CALCIUM 8.1 MG/DL (8.5-10.1); CREATININE SERUM 1.02 MG/DL (0.60-1.30); PHOSPHORUS 2.5 MG/DL (2.3-4.7); POTASSIUM 4.4 MMOL/L (3.6-5.0)
[2018-10-14 08:39] VITALS: BP 139/85
[2018-10-14] MEDS: PANTOPRAZOLE 40 MG (PROTONIX) VIAL IV SCH (09:12)
[2018-10-14] MEDS: CIPROFLOXACIN IV 400MG/200ML 200 ML IV SCH ×2 (09:12→21:10)
--- NOTE | 2018-10-14 09:52 | Physical Therapy Daily Note ---
PT Daily Note-Current Subjective Patient reports frustration due to edema and weight gain. Pain Numeric Pain Scale: 5-Moderate Pain Location: Left Location Body Site: Hip Pain Description: Chronic Mental Status Patient Orientation: Normal For Age Attachments: Ureña Catheter, IV Transfers Therapy Code Descriptions/Definitions Functional [place] Measure: 0=Not Assessed/NA 4=Minimal Assistance 1=Total Assistance 5=Supervision or Setup 2=Maximal Assistance 6=Modified [place] 3=Moderate Assistance 7=Complete [place] Therapy Quality Codes: 6 Independent with activity with or without an assistive device 5 Patient requires set up or clean up by helper. Patient completes activity by themselves 4 Supervision or touching assist (CGA). [place] provide cues , steadying assist 3 The helper provides less than half the effort to complete the activity 2 The helper provides more than half the effort to complete the activity 1 Dependent. The helper does all the effort to complete an activity 7 Patient refused to complete or attempt activity 9 The patient did not perform the activity before the current illness or injury 88 Not attempted due to Medical conditions or safety concerns Weight Bearing Right Lower Extremity: Right Full Weight Bearing Left Lower Extremity: Left Weight Bearing/Tolerated Exercises Supine Ex: Ankle pumps, Quad Set, Heel Slides, Straight leg raise, Hip abd/add Supine Reps: 15 (2 sets) Seated Therapy Exercises: Long arc quads Seated Reps: 15 (2 sets) Assessment Patient declined sit to stand activity at this time. Bilateral LE exercises in recliner with legs elevated for supine exercises. PT to increase activity as tolerated by patient. PT Short Term Goals Short Term Goals Transfers (B,C,W/C) (FIM): 5 PT Copier Operator Goals [facility] Goals PT Copier Operator Goals Time Frame: Nov 02, 2018 Transfers (B,C,W/C) (FIM): 6 Gait (FIM): 6 Gait distance (FIM): 3=150 ft Distance: 150' Gait Level of Assist: 6 Gait Assistive Device: FWW PT Plan Treatment/Plan Treatment Plan: Continue Plan of Care Treatment Plan: Bed Mobility, Education, Functional Activity Marcelina, Functional Strength, Gait, Safety, Therapeutic Exercise, Transfers Treatment Duration: Nov 02, 2018 Frequency: 6 times per week Estimated Hrs Per Day: .25 hour per day Patient and/or Family Agrees t: Yes Time/GCodes Time In: 926 Time Out: 936 Total Billed Treatment Time: 10 Total Billed Treatment 1 visit EX 10 min PRIMO JOSE PT Oct 14, 2018 09:52
--- NOTE | 2018-10-14 10:00 | NUR ---
abd dressing changed, wet to dry dressing, 4x4, abd pad applied, skin excoriated,with small amount bleeding
[2018-10-14] MEDS: LACTATED RINGERS 1,000 ML IV SCH ×2 (11:30→11:52)
--- NOTE | 2018-10-14 12:03 | Occupational Ther Daily Note ---
OT Current Status-Daily Note Subjective pt sitting in recliner chair upon O T arrival. pt agreed to OT TX session with focus on increasing independence with ADLs. pt reports no pain. PT IS NOW ON CONTACT PRECAUTIONS Mental Status/Objective Patient Orientation: Person, Place, Time, Situation Therapy Code Descriptions/Definitions Functional [place] Measure: 0=Not Assessed/NA 4=Minimal Assistance 1=Total Assistance 5=Supervision or Setup 2=Maximal Assistance 6=Modified [place] 3=Moderate Assistance 7=Complete [place] Attachments: Ureña Catheter, IV, Oxygen ADL-Treatment Grooming (FIM): 5 (brush hair, wash face, wash hands seated in chair. pt rEF to go into bathroom this date. pt stated she will next day. ) Lower Body Dressing (FIM): 2 (pt reuqired assist to thread ya LE through underpants. pt demo ability tp pull up underpants whiel standing. ) NSG in room during TX session. pt stated she is nervous to perform functional mobility secondary to open abd wound. NSG stated we can use underpants to insure closure of wound while stands. NSG present in room while pt karen underpants. post OT session pt sitting in recliner chair. , call light within reach, all needs met. pt left in NSG care. Education OT Patient Education: Modified ADL techniques, Progress toward Goal/Update tx plan, Purpose of tx/functional activities, Safety issues Teaching Recipient: Patient Teaching Methods: Demonstration, Discussion Response to Teaching: Verbalize Understanding, Return Demonstration OT Short Term Goals Short Term Goals Grooming(FIM): 5 Bathing(FIM): 5 Upper Body Dressing(FIM): 5 Lower Body Dressing(FIM): 5 Toileting(FIM): 5 Transfers (B,C,W/C) (FIM): 5 Toilet/Commode Transfer(FIM): 5 1=Demonstrate adherence to instructed precautions during ADL tasks. 2=Patient will verbalize/demonstrate understanding of assistive devices/modifications for ADL. 3=Patient will improve strength/tolerance for activity to enable patient to perform ADL's. OT Half-Way Goals Half-Way Goals Time Frame: Oct 23, 2018 Grooming(FIM): 6 Bathing(FIM): 6 Bathing Location: L Arm, R Arm, L Upper Leg, R Upper Leg, L Lower Leg (including foot), R Lower Leg (including foot), Chest, Abdomen, Buttocks, Perin eal Area Upper Body Dressing(FIM): 6 Lower Body Dressing(FIM): 6 Toileting(FIM): 6 Transfers (B,C,W/C) (FIM): 6 Toilet/Commode Transfer(FIM): 6 Shower Transfer(FIM): 6 Additional Goals: 1-Demonstrate ADL Tasks, 2-Verbalize Understanding, 3- ImproveStrength/Marcelina 1=Demonstrate adherence to instructed precautions during ADL tasks. 2=Patient will verbalize/demonstrate understanding of assistive devices/modifications for ADL. 3=Patient will improve strength/tolerance for activity to enable patient to perform ADL's. OT Education/Plan Problem List/Assessment Assessment: Decreased Activ Tolerance, Decreased Safety Aware, Decreased UE Strength, Impaired Bed Mobility, Impaired Coordination, Impaired Funct Balance, Impaired I ADL's, Impaired Self-Care Skills pt presents with functional limitations affecting areas of ADLS/ functional transfers with the above mention deficits. pt would benefit from OT services to increase independence with ADLS/ functional transfers. Discharge Recommendations Plan/Recommendations: Continue POC Therapy D/C Recommendations: Acute Rehab Treatment Plan/Plan of Care Treatment,Training & Education: Yes Patient would benefit from OT for education, treatment and training to promote independence in ADL's, mobility, safety and/or upper extremity function for ADL's. Plan of Care: ADL Retraining, Functional Mobility, Group Exercise/Act as Ind, UE Funct Exercise/Act Treatment Duration: Oct 23, 2018 Frequency: 5 times per week Estimated Hrs Per Day: .25 hour per day Agreement: Yes Rehab Potential: Fair Time/GCodes Start Time: 11:45 Stop Time: 12:00 Billed Treatment Time ADL 15 minutes JOSSE SANCHEZ OT Oct 14, 2018 12:03
[2018-10-14 12:08] VITALS: BP 134/83
--- NOTE | 2018-10-14 12:53 | NUR ---
TPN: 63 Y/O F, HT 63 INCHES, ABW 123 KG, IBW 52.4 KG. CC: SEPSIS, FISTULA, INTESTINAL BLEEDING, RECURRENT VENTRAL HERNIA. ALLERGIES; LINEZOLID. LABS; BS 365. CURRENTLY; NPO, TPN CYCLING OVER 16 HOURS PROVIDING 2040 KCAL AND 100 GM PROTEIN, WITH LR AT 75 ML/HR. PATIENT HAD BEEN ON HOME TPN CYCLING OVER 16 HRS PROVIDING 1168 KCAL WITH 100 GM PROTEIN. KCAL IN TPN ADVANCED, CONTRIBUTING TO RISE IN BS. CALCULATED METABOLIC NEEDS FOR STAGE III OBESE PATIENT IS, 11-14 KCAL/KG ACTUAL BODY WEIGHT, WITH 2.5 GM KG IBW PROTEIN. THIS COMES TO [id number] KCAL AND 130 GM PROTEIN. PLAN: CYCLE TPN OVER 16 HRS, REDUCE TO 1240 KCAL, WITH PROTEIN 100 GM. THIS WILL PROVIDE 1622 ML FLUID, REDUCE LR TO 50 ML/HR FOR TOTAL DAILY FLUID OF 2822ML. PENDING LABS WILL ADVANCE TPN TO [id number] KCAL WITH 100 - 130 GM PROTEIN.
--- NOTE | 2018-10-14 13:44 | Progress Note (SOAP) ---
Subjective Subjective/Events-last exam Patient states that she is feeling better. She has not been getting up much because she feels so full of fluid. Still having some shortness of breath with at rest and with minimal activity. NPO. Review of Systems Date Seen by Provider: Oct 14, 2018 Time Seen by Provider: 11:30 Pulmonary: Dyspnea Cardiovascular: No: Chest Pain, Palpitations Gastrointestinal: Abdominal Pain Musculoskeletal: leg pain (Left) Objective Exam Last Set of Vital Signs Vital Signs Date Time Temp Pulse Resp B/P (MAP) Pulse Ox O2 Delivery O2 Flow Rate FiO2 10/14/18 12:08 97.2 83 19 134/83 (100) 95 High Flow N/C 3.00 10/12/18 09:50 5 Capillary Refill : Less Than 3 SecondsLess Than 3 Seconds I&O Intake and Output 10/14/18 00:00 Intake Total 5938.6333 ml Output Total 1350 ml Balance 4588.6333 ml Intake Oral 0 ml IV Total 5938.6333 ml Output Urine Total 1350 ml General: Alert, Oriented X3, Cooperative, No Acute Distress Lungs: Clear to Auscultation, Other (Diminished at the bases) Heart: Regular Rate, No Murmurs Abdomen: Soft Extremities: Other (2+ pitting edema bilaterally up to thigh) Skin: Other (Large ventral hernia with fistula) Results/Procedures Lab Laboratory Tests 10/13/18 17:38: Glucometer 143H 10/14/18 00:00: Glucometer 323H 10/14/18 05:45: White Blood Count 15.7H, Red Blood Count 3.33L, Hemoglobin 10.7L, Hematocrit 33L , Mean Corpuscular Volume 99, Mean Corpuscular Hemoglobin 32, Mean Corpuscular Hemoglobin Concent 33, Red Cell Distribution Width 20.4H, Platelet Count 272, Mean Platelet Volume 11.9H, Neutrophils (%) (Auto) 86H, Lymphocytes (%) (Auto) 8L, Monocytes (%) (Auto) 7, Eosinophils (%) (Auto) 0, Basophils (%) (Auto) 0, Neutrophils # (Auto) 13.5H, Lymphocytes # (Auto) 1.2, Monocytes # (Auto) 1.1H, Eosinophils # (Auto) 0.0, Basophils # (Auto) 0.0, Sodium Level 140, Potassium Level 4.4, Chloride Level 106, Carbon Dioxide Level 25, Anion Gap 9, Blood Urea Nitrogen 22H, Creatinine 1.02, Estimat Glomerular Filtration Rate 55, BUN/Creatinine Ratio 22, Glucose Level 365H, Calcium Level 8.1L, Phosphorus Level 2.5, Magnesium Level 2.0 10/14/18 06:00: Glucometer 332H 10/14/18 12:03: Glucometer 238H Microbiology 10/08/18 Catheter Tip Culture - Final, Complete Olga Lidia lipolytica 10/08/18 MRSA Screen - Final, Complete 10/08/18 Urine Culture - Final, Complete Enterobacter cloacae Enterococcus gallinarum See Comments 10/08/18 Gram Stain - Final, Complete 10/08/18 Wound Culture - Final, Complete Mixed Bacterial Deisy Pseudomonas aeruginosa Assessment/Plan Assessment/Plan (1) Shortness of breath at rest Status: Acute Assessment & Plan: 10/14: Multifactoral: Dr Samuel consulted, Dose of Lasix given today, Encouraged activity (2) Yeast infection Status: Acute Assessment & Plan: 10/14: Yeast found on the tip of the PICC, Will have to place another once blood cultures are clear, continue Eraxis (3) Enterocutaneous fistula Status: Chronic Assessment & Plan: 10/14: Dr Hallman consulted, not a surgical candidate at this time (4) Weakness generalized Status: Acute Assessment & Plan: 10/14: PT/OT, Encouraged patient to begin focusing on strength (5) Malnutrition Status: Acute Assessment & Plan: 10/14: Patient TPN dependent at this time Qualifiers: (6) Renal insufficiency Status: Resolved (7) Septic shock Status: Resolved (8) Urinary tract infection Status: Acute Qualifiers: Qualified Codes: N39.0 - Urinary tract infection, site not specified (9) Hemorrhage from wound Status: Resolved Clinical Quality Measures DVT/VTE Risk/Contraindication: Risk Factor Score Per Nursin RFS Level Per Nursing on Admit: 4+=Very High ARCHIE ESPINO MD Oct 14, 2018 13:44
[2018-10-14] MEDS ORDERED: FUROSEMIDE 40 MG/4 ML INJ (LASIX) IVP NR (13:45)
--- NOTE | 2018-10-14 14:21 | Progress Note ---
Subjective Time Seen by a Provider: 13:19 Subjective/Events-last exam Pt seen and examined, her main complaint today is leg swelling/edema. Not really having much abdominal pain and she doesn't think there is any bleeding today. Review of Systems General: No Chills, No Night Sweats; Fatigue, Malaise Pulmonary: No Dyspnea, No Cough Cardiovascular: No: Chest Pain, Palpitations Gastrointestinal: Abdominal Pain; No: Nausea, Vomiting Genitourinary: No Dysuria, No Frequency Objective Exam Vital Signs Date Time Temp Pulse Resp B/P (MAP) Pulse Ox O2 Delivery O2 Flow Rate FiO2 10/14/18 12:08 97.2 83 19 134/83 (100) 95 High Flow N/C 3.00 10/14/18 09:00 95 High Flow N/C 3.00 10/14/18 08:39 97.9 55 19 139/85 (103) 94 High Flow N/C 3.00 10/14/18 07:52 95 Nasal Cannula 3.00 10/14/18 04:25 97.2 66 20 130/81 (97) 92 High Flow N/C 3.00 10/14/18 00:03 97.7 74 20 135/75 (95) 91 High Flow N/C 3.00 10/13/18 21:00 Nasal Cannula 4.00 10/13/18 20:51 90 Nasal Cannula 3.00 10/13/18 20:30 97.0 73 20 137/82 (100) 91 High Flow N/C 3.00 10/13/18 16:55 97.6 69 18 128/76 (93) 94 High Flow N/C 3.00 10/13/18 15:46 93 Nasal Cannula 4.00 I & O 10/14/18 07:00 Intake Total 4938.6333 ml Output Total 1275 ml Balance 3663.6333 ml Capillary Refill : Less Than 3 SecondsLess Than 3 Seconds General Appearance: No Apparent Distress, WD/WN, Chronically ill, Obese HEENT: PERRL/EOMI, Pharynx Normal, Moist Mucous Membranes Respiratory: Chest Non Tender, Lungs Clear, Normal Breath Sounds, No Accessory Muscle Use, No Respiratory Distress Cardiovascular: Regular Rate, Rhythm, No Gallop, No JVD, No Murmur, Normal Peripheral Pulses Gastrointestinal: normal bowel sounds, soft, other (Large portion of small bowel visible, mesh visible, no signs of erythema or infection, there is normal bowel contents in wound. Stopped bleeding from left edge around intestine, however now it looks like it is bleeding from the excoriated skin) Extremity: No Calf Tenderness, Pedal Edema Neurologic/Psychiatric: Alert, Oriented x3, Depressed Affect Skin: Normal Color, Warm/Dry Lymphatic: No Adenopathy Results Lab Laboratory Tests 10/13/18 17:38: Glucometer 143H 10/14/18 00:00: Glucometer 323H 10/14/18 05:45: White Blood Count 15.7H, Red Blood Count 3.33L, Hemoglobin 10.7L, Hematocrit 33L , Mean Corpuscular Volume 99, Mean Corpuscular Hemoglobin 32, Mean Corpuscular Hemoglobin Concent 33, Red Cell Distribution Width 20.4H, Platelet Count 272, Mean Platelet Volume 11.9H, Neutrophils (%) (Auto) 86H, Lymphocytes (%) (Auto) 8L, Monocytes (%) (Auto) 7, Eosinophils (%) (Auto) 0, Basophils (%) (Auto) 0, Neutrophils # (Auto) 13.5H, Lymphocytes # (Auto) 1.2, Monocytes # (Auto) 1.1H, Eosinophils # (Auto) 0.0, Basophils # (Auto) 0.0, Sodium Level 140, Potassium Level 4.4, Chloride Level 106, Carbon Dioxide Level 25, Anion Gap 9, Blood Urea Nitrogen 22H, Creatinine 1.02, Estimat Glomerular Filtration Rate 55, BUN/Creatinine Ratio 22, Glucose Level 365H, Calcium Level 8.1L, Phosphorus Level 2.5, Magnesium Level 2.0 10/14/18 06:00: Glucometer 332H 10/14/18 12:03: Glucometer 238H Microbiology 10/08/18 Catheter Tip Culture - Final, Complete Olga Lidia lipolytica 10/08/18 MRSA Screen - Final, Complete 10/08/18 Urine Culture - Final, Complete Enterobacter cloacae Enterococcus gallinarum See Comments 10/08/18 Gram Stain - Final, Complete 10/08/18 Wound Culture - Final, Complete Mixed Bacterial Deisy Pseudomonas aeruginosa Assessment/Plan Assessment/Plan Assessment/Plan Sepsis - resolved Candidemia - awaiting final sensitivity Intestinal Bleeding - appears to have stopped Fistula Recurrent Ventral hernia New blood cultures drawn today; will wait to see if yeast still grows. Continue Cipro to treat Urine and bacteria in abdominal wound. Yeast sensitivity still not back; will wait on that. TPN has started through central line; need to hold off on new PICC line until we are sure she is not bacteremic and then can place PICC. In discussion with pharmacist it appears length of time needed to treat the yeast is 14 days of IV ABX after negative blood culture. Plan to place new central line tomorrow and she was ordered some Lasix by her primary care doctor. Clinical Quality Measures DVT/VTE Risk/Contraindication: Risk Factor Score Per Nursin RFS Level Per Nursing on Admit: 4+=Very High MANDA STEWART DO Oct 14, 2018 14:21
[2018-10-14] MEDS: ANIDULAFUNGIN 100 MG/NS 100 ML IV SCH ×2 (15:24)
[2018-10-14 15:44] VITALS: BP 173/98
[2018-10-14] MEDS ORDERED: SODIUM ACETATE IV SCH ×11 (17:00)
[2018-10-14] MEDS ORDERED: POTASSIUM CHLORIDE IV SCH ×11 (17:00)
[2018-10-14] MEDS ORDERED: LACTATED RINGERS 1,000 ML IV SCH (17:00)
[2018-10-14] MEDS ORDERED: [UNRECOGNIZED DRUG - OTHER] IV SCH ×11 (17:00)
[2018-10-14 20:35] VITALS: BP 144/93
[2018-10-15 00:40] VITALS: BP 130/84
[2018-10-15] MEDS: HYDROCORTISONE 100 MG/2 ML (Solu-CORTEF) VIAL IV SCH ×5 (00:46→23:51)
[2018-10-15] MEDS: inSUlin ASPART (NovoLOG) 1 UNIT/0.01 ML (CHARGE PER UNIT) SC SCH ×4 (00:49→18:55)
[2018-10-15] MEDS: RT-ALBUTEROL/IPRATROPIUM 3 ML (DUONEB) VIAL INH SCH ×4 (03:56→20:33)
[2018-10-15 04:08] VITALS: BP 126/82
[2018-10-15 06:11] LABS: BASOPHILS % (AUTO) 0 % (0-10); EOSINOPHILS % (AUTO) 0 % (0-10); HEMATOCRIT 34 % (35-52); LYMPHOCYTES # (AUTO) 1.2 X 10^3 (1.0-4.0); LYMPHOCYTES % (AUTO) 9 % (12-44); MEAN CORPUSCULAR HEMOGLOBIN 32 PG (25-34); MEAN CORPUSCULAR HGB CONC 32 G/DL (32-36); MEAN CORPUSCULAR VOLUME 98 FL (80-99); MEAN PLATELET VOLUME 11.7 FL (7.4-10.4); MONOCYTES % (AUTO) 8 % (0-12); NEUTROPHILS # (AUTO) 10.9 X 10^3 (1.8-7.8); NEUTROPHILS % (AUTO) 83 % (42-75); PLATELET COUNT 259 10^3/uL (130-400); RED CELL DISTRIBUTION WIDTH 20.2 % (10.0-14.5); WHITE BLOOD COUNT 13.2 10^3/uL (4.3-11.0)
[2018-10-15 06:16] LABS: SMEAR SCAN COMMENT YES
[2018-10-15 06:36] LABS: ALANINE AMINOTRANSFERASE 114 U/L (0-55); ALBUMIN 2.2 GM/DL (3.2-4.5); ALKALINE PHOSPHATASE 82 U/L (40-136); BILIRUBIN,TOTAL 1.1 MG/DL (0.1-1.0); BUN/CREATININE RATIO 29; CARBON DIOXIDE 30 MMOL/L (21-32); CHLORIDE 102 MMOL/L (98-107); CREATININE SERUM 0.82 MG/DL (0.60-1.30); GFR ESTIMATED > 60; GLUCOSE 204 MG/DL (70-105); MAGNESIUM 2.2 MG/DL (1.8-2.4); PHOSPHORUS 3.5 MG/DL (2.3-4.7); POTASSIUM 3.8 MMOL/L (3.6-5.0); SODIUM 142 MMOL/L (135-145); TOTAL PROTEIN 5.6 GM/DL (6.4-8.2); TRIGLYCERIDES 118 MG/DL (<150)
[2018-10-15] MEDS: CIPROFLOXACIN IV 400MG/200ML 200 ML IV SCH ×2 (08:01→21:25)
[2018-10-15] MEDS: PANTOPRAZOLE 40 MG (PROTONIX) VIAL IV SCH (08:01)
[2018-10-15 08:40] VITALS: BP 155/95
--- NOTE | 2018-10-15 09:31 | NUR ---
pt refused svn states it makes her choke; due to O2 sat of 93% patients O2 was decreased from 4 L to 3 L NC
--- NOTE | 2018-10-15 10:53 | Physical Therapy Daily Note ---
PT Daily Note-Current Subjective Patient reports she is feeling better and agrees to PT. Pain Numeric Pain Scale: 5-Moderate Pain Location: Medial, Lower Location Body Site: Abdomen Pain Description: Acute Mental Status Patient Orientation: Normal For Age Attachments: Oxygen, Ureña Catheter Transfers Therapy Code Descriptions/Definitions Functional [place] Measure: 0=Not Assessed/NA 4=Minimal Assistance 1=Total Assistance 5=Supervision or Setup 2=Maximal Assistance 6=Modified [place] 3=Moderate Assistance 7=Complete [place] Therapy Quality Codes: 6 Independent with activity with or without an assistive device 5 Patient requires set up or clean up by helper. Patient completes activity by themselves 4 Supervision or touching assist (CGA). [place] provide cues , steadying assist 3 The helper provides less than half the effort to complete the activity 2 The helper provides more than half the effort to complete the activity 1 Dependent. The helper does all the effort to complete an activity 7 Patient refused to complete or attempt activity 9 The patient did not perform the activity before the current illness or injury 88 Not attempted due to Medical conditions or safety concerns Transfers (B, C, W/C) (FIM): 6 Scootin Sit to/from Stand: 6 Weight Bearing Right Lower Extremity: Right Full Weight Bearing Left Lower Extremity: Left Weight Bearing/Tolerated Exercises Seated Therapy Exercises: Ankle pumps, Long arc quads Seated Reps: 15 (2 sets) Standing: Heel/toe raises, Marching Standing Reps: 15 (3 sets) Assessment Patient improving with treatment. PT to continue to increase activity. PT Short Term Goals Short Term Goals Transfers (B,C,W/C) (FIM): 5 PT Fdc Goals Rib Trim Separator Goals PT Rib Trim Separator Goals Time Frame: Nov 02, 2018 Transfers (B,C,W/C) (FIM): 6 Gait (FIM): 6 Gait distance (FIM): 3=150 ft Distance: 150' Gait Level of Assist: 6 Gait Assistive Device: FWW PT Plan Treatment/Plan Treatment Plan: Continue Plan of Care Treatment Plan: Bed Mobility, Education, Functional Activity Marcelina, Functional Strength, Gait, Safety, Therapeutic Exercise, Transfers Treatment Duration: Nov 02, 2018 Frequency: 6 times per week Estimated Hrs Per Day: .25 hour per day Patient and/or Family Agrees t: Yes Time/GCodes Time In: 1030 Time Out: 1045 Total Billed Treatment Time: 15 Total Billed Treatment 1 visit EX 15 min PRIMO JOSE PT Oct 15, 2018 10:53
--- NOTE | 2018-10-15 13:26 | Occupational Ther Daily Note ---
OT Current Status-Daily Note Subjective pt sitting in recliner chair. pt required motivation to participate in OT session. pt refused to complete ADLs to any tasks in standing this date. pt did agreed to complete UE ex. to increase UE strength;/ activity tolerance for daily activities Pain Numeric Pain Scale: 0-No Pain Mental Status/Objective Therapy Code Descriptions/Definitions Functional [place] Measure: 0=Not Assessed/NA 4=Minimal Assistance 1=Total Assistance 5=Supervision or Setup 2=Maximal Assistance 6=Modified [place] 3=Moderate Assistance 7=Complete [place] Attachments: Ureña Catheter, Oxygen Other Treatment pt education on UE ROM Ex to increase UE strength. activity tolerance for daily activities. pt perform 10X1 shoulder flex/ ADD/ ABD, elbow flex/ ext. post session pt sitting in recliner chair. call light within reach, all needs met. pt instructed to complete ex 3 times daily. pt verbalized undersensing. Education OT Patient Education: Exercise program Teaching Recipient: Patient Teaching Methods: Demonstration, Discussion Response to Teaching: Verbalize Understanding, Return Demonstration OT Short Term Goals Short Term Goals Grooming(FIM): 5 Bathing(FIM): 5 Upper Body Dressing(FIM): 5 Lower Body Dressing(FIM): 5 Toileting(FIM): 5 Transfers (B,C,W/C) (FIM): 5 Toilet/Commode Transfer(FIM): 5 1=Demonstrate adherence to instructed precautions during ADL tasks. 2=Patient will verbalize/demonstrate understanding of assistive devices/modifications for ADL. 3=Patient will improve strength/tolerance for activity to enable patient to perform ADL's. OT Equipment Services Associate Goals Equipment Services Associate Goals Time Frame: Oct 23, 2018 Grooming(FIM): 6 Bathing(FIM): 6 Bathing Location: L Arm, R Arm, L Upper Leg, R Upper Leg, L Lower Leg (including foot), R Lower Leg (including foot), Chest, Abdomen, Buttocks, Perineal Area Upper Body Dressing(FIM): 6 Lower Body Dressing(FIM): 6 Toileting(FIM): 6 Transfers (B,C,W/C) (FIM): 6 Toilet/Commode Transfer(FIM): 6 Shower Transfer(FIM): 6 Additional Goals: 1-Demonstrate ADL Tasks, 2-Verbalize Understanding, 3- ImproveStrength/Marcelina 1=Demonstrate adherence to instructed precautions during ADL tasks. 2=Patient will verbalize/demonstrate understanding of assistive devices/modifications for ADL. 3=Patient will improve strength/tolerance for activity to enable patient to perform ADL's. OT Education/Plan Problem List/Assessment Assessment: Decreased Activ Tolerance, Decreased Safety Aware, Decreased UE Strength, Impaired Funct Balance, Impaired I ADL's, Impaired Self-Care Skills pt presents with functional limitations affecting areas of ADLS/ functional transfers with the above mention deficits. pt would benefit from OT services to increase independence with ADLS/ functional transfers. Discharge Recommendations Plan/Recommendations: Continue POC Therapy D/C Recommendations: Acute Rehab Treatment Plan/Plan of Care Treatment,Training & Education: Yes Patient would benefit from OT for education, treatment and training to promote independence in ADL's, mobility, safety and/or upper extremity function for ADL's. Plan of Care: ADL Retraining, Functional Mobility, Group Exercise/Act as Ind, UE Funct Exercise/Act Treatment Duration: Oct 23, 2018 Frequency: 5 times per week Estimated Hrs Per Day: .25 hour per day Agreement: Yes Rehab Potential: Fair Time/GCodes Start Time: 13:05 Stop Time: 13:20 Billed Treatment Time ex 15 minutes, 1 unit JOSSE SANCHEZ OT Oct 15, 2018 13:26
--- NOTE | 2018-10-15 13:27 | NUR ---
TPN: KCAL ADVANCED IN TPN FOR A TOTAL OF 1444 KCAL WITH 100 MG PROTEIN CYCLED OVER 16 HOURS. PLAN: MONITOR LABS, ADJUST NEEDED.
[2018-10-15] MEDS: ANIDULAFUNGIN 100 MG/NS 100 ML IV SCH ×2 (14:58)
[2018-10-15 16:11] VITALS: BP 138/88
[2018-10-15] MEDS ORDERED: POTASSIUM CHLORIDE IV SCH ×11 (17:00)
[2018-10-15] MEDS ORDERED: SODIUM CHLORIDE IV SCH ×11 (17:00)
[2018-10-15] MEDS ORDERED: [UNRECOGNIZED DRUG - OTHER] IV SCH ×11 (17:00)
--- NOTE | 2018-10-15 18:52 | Progress Note ---
Subjective Time Seen by a Provider: 12:55 Subjective/Events-last exam Pt seen and examined, still feels run down and complains of pain in abdomen; but at skin where there is breakdown. She complains of leg swelling. Review of Systems General: No Chills, No Night Sweats; Fatigue Pulmonary: No Dyspnea, No Cough Cardiovascular: No: Chest Pain, Palpitations Gastrointestinal: No: Nausea, Vomiting Genitourinary: No Dysuria, No Frequency Objective Exam Vital Signs Date Time Temp Pulse Resp B/P (MAP) Pulse Ox O2 Delivery O2 Flow Rate FiO2 10/15/18 16:11 97.6 50 20 138/88 (105) 92 High Flow N/C 4.00 10/15/18 14:46 94 Nasal Cannula 3.00 10/15/18 09:31 93 Nasal Cannula 4.00 10/15/18 09:00 95 High Flow N/C 3.00 10/15/18 08:40 97.5 52 20 155/95 (115) 93 High Flow N/C 4.00 10/15/18 04:08 97.1 63 16 126/82 (97) 92 Nasal Cannula 3.00 10/15/18 03:56 Nasal Cannula 4.00 10/15/18 00:40 98.0 75 20 130/84 (99) 91 High Flow N/C 3.00 10/14/18 21:00 94 High Flow N/C 3.00 10/14/18 20:35 97.8 58 20 144/93 (110) 94 High Flow N/C 3.00 10/14/18 19:54 89 Nasal Cannula 3.00 I & O 10/15/18 07:00 Intake Total 4630 ml Output Total 4350 ml Balance 280 ml Capillary Refill : Less Than 3 SecondsLess Than 3 Seconds General Appearance: No Apparent Distress, Chronically ill, Obese HEENT: PERRL/EOMI, Pharynx Normal, Moist Mucous Membranes Respiratory: Chest Non Tender, Lungs Clear, Normal Breath Sounds, No Accessory Muscle Use, No Respiratory Distress Cardiovascular: Regular Rate, Rhythm, No Edema, No Gallop, No JVD, No Murmur, Normal Peripheral Pulses Gastrointestinal: normal bowel sounds, soft, other (Large portion of small b owel visible, mesh visible, skin at base of wound now has excoriation) Extremity: No Calf Tenderness, Pedal Edema Neurologic/Psychiatric: Alert, Oriented x3, No Motor/Sensory Deficits, Depressed Affect Skin: Normal Color, Warm/Dry Results Lab Laboratory Tests 10/15/18 00:37: Glucometer 195H 10/15/18 05:34: Glucometer 197H 10/15/18 05:50: White Blood Count 13.2H, Red Blood Count 3.48L, Hemoglobin 11.0L, Hematocrit 34L , Mean Corpuscular Volume 98, Mean Corpuscular Hemoglobin 32, Mean Corpuscular Hemoglobin Concent 32, Red Cell Distribution Width 20.2H, Platelet Count 259, Me an Platelet Volume 11.7H, Neutrophils (%) (Auto) 83H, Lymphocytes (%) (Auto) 9L, Monocytes (%) (Auto) 8, Eosinophils (%) (Auto) 0, Basophils (%) (Auto) 0, Neutrophils # (Auto) 10.9H, Lymphocytes # (Auto) 1.2, Monocytes # (Auto) 1.0, Eosinophils # (Auto) 0.0, Basophils # (Auto) 0.0, Sodium Level 142, Potassium Level 3.8, Chloride Level 102, Carbon Dioxide Level 30, Anion Gap 10, Blood Urea Nitrogen 24H, Creatinine 0.82, Estimat Glomerular Filtration Rate > 60, BUN/Creatinine Ratio 29, Glucose Level 204H, Calcium Level 8.0L, Corrected Calcium 9.4, Phosphorus Level 3.5, Magnesium Level 2.2, Total Bilirubin 1.1H, Aspartate Amino Transf (AST/SGOT) 112H, Alanine Aminotransferase (ALT/SGPT) 114H , Alkaline Phosphatase 82, Total Protein 5.6L, Albumin 2.2L, Triglycerides Level 118, Smear Scan YES 10/15/18 11:54: Glucometer 178H 10/15/18 18:21: Glucometer 162H Microbiology 10/13/18 Blood Culture - Preliminary, Resulted No growth 10/08/18 MRSA Screen - Final, Complete 10/08/18 Urine Culture - Final, Complete Enterobacter cloacae Enterococcus gallinarum See Comments 10/08/18 Gram Stain - Final, Complete 10/08/18 Wound Culture - Final, Complete Mixed Bacterial Deisy Pseudomonas aeruginosa Assessment/Plan Assessment/Plan Assessment/Plan Sepsis - resolved Candidemia - awaiting final sensitivity Intestinal Bleeding - appears to have stopped Fistula Recurrent Ventral hernia Plan to place new central line this afternoon. She may need more Lasix. Will see if yeast grows in new cultures; will take a while. Continue Cipro to treat Urine and bacteria in abdominal wound. Yeast sensitivity still not back; will wait on that. TPN has started through central line; need to hold off on new PICC line until we are sure she is not bacteremic and then can place PICC. In discussion with pharmacist it appears length of time needed to treat the yeast is 14 days of IV ABX after negative blood culture. Clinical Quality Measures DVT/VTE Risk/Contraindication: Risk Factor Score Per Nursin RFS Level Per Nursing on Admit: 4+=Very High MANDA STEWART DO Oct 15, 2018 18:52
--- NOTE | 2018-10-15 18:54 | Progress Note-Post Operative ---
Post-Operative Progess Note Surgeon (s)/Or Manager (s) Surgeon MANDA STEWART DO Or Manager: none Pre-Operative Diagnosis Venous Insufficiency, Malnutrition Post-Operative Diagnosis same Procedure & Operative Findings Date of Procedure 10/15/18 Procedure Performed/Findings Triple Lumen Catheter Left IJ Anesthesia Type local lidocaine Estimated Blood Loss Estimated blood loss (mL): scant Specimens/Packing Specimens Removed none MANDA STEWART DO Oct 15, 2018 18:54
--- NOTE | 2018-10-15 19:04 | Progress Note (SOAP) ---
Subjective Subjective/Events-last exam Patient still having pain in legs and states that it is causing her not to be able to walk with PT. NPO Review of Systems Date Seen by Provider: Oct 15, 2018 Time Seen by Provider: 11:10 Pulmonary: Dyspnea Cardiovascular: No: Chest Pain, Palpitations Gastrointestinal: Abdominal Pain Musculoskeletal: leg pain Neurological: Weakness Objective Exam Last Set of Vital Signs Vital Signs Date Time Temp Pulse Resp B/P (MAP) Pulse Ox O2 Delivery O2 Flow Rate FiO2 10/15/18 16:11 97.6 50 20 138/88 (105) 92 High Flow N/C 4.00 10/12/18 09:50 5 Capillary Refill : Less Than 3 SecondsLess Than 3 Seconds I&O Intake and Output 10/14/18 23:59 Intake Total 3030 ml Output Total 4200 ml Balance -1170 ml Intake Oral 0 ml IV Total 3030 ml Output Urine Total 4200 ml General: Alert, Oriented X3, Cooperative, No Acute Distress Lungs: Clear to Auscultation, Normal Air Movement Heart: Regular Rate, No Murmurs Abdomen: Soft Extremities: Other (1+ pitting edema bilaterally above knee) Skin: Other Results/Procedures Lab Laboratory Tests 10/15/18 00:37: Glucometer 195H 10/15/18 05:34: Glucometer 197H 10/15/18 05:50: White Blood Count 13.2H, Red Blood Count 3.48L, Hemoglobin 11.0L, Hematocrit 34L , Mean Corpuscular Volume 98, Mean Corpuscular Hemoglobin 32, Mean Corpuscular Hemoglobin Concent 32, Red Cell Distribution Width 20.2H, Platelet Count 259, Mean Platelet Volume 11.7H, Neutrophils (%) (Auto) 83H, Lymphocytes (%) (Auto) 9L, Monocytes (%) (Auto) 8, Eosinophils (%) (Auto) 0, Basophils (%) (Auto) 0, Neutrophils # (Auto) 10.9H, Lymphocytes # (Auto) 1.2, Monocytes # (Auto) 1.0, Eosinophils # (Auto) 0.0, Basophils # (Auto) 0.0, Sodium Level 142, Potassium Level 3.8, Chloride Level 102, Carbon Dioxide Level 30, Anion Gap 10, Blood Urea Nitrogen 24H, Creatinine 0.82, Estimat Glomerular Filtration Rate > 60, BUN/Creatinine Ratio 29, Glucose Level 204H, Calcium Level 8.0L, Corrected Calcium 9.4, Phosphorus Level 3.5, Magnesium Level 2.2, Total Bilirubin 1.1H, Aspartate Amino Transf (AST/SGOT) 112H, Alanine Aminotransferase (ALT/SGPT) 114H , Alkaline Phosphatase 82, Total Protein 5.6L, Albumin 2.2L, Triglycerides Level 118, Smear Scan YES 10/15/18 11:54: Glucometer 178H 10/15/18 18:21: Glucometer 162H Microbiology 10/13/18 Blood Culture - Preliminary, Resulted No growth 10/08/18 MRSA Screen - Final, Complete 10/08/18 Urine Culture - Final, Complete Enterobacter cloacae Enterococcus gallinarum See Comments 10/08/18 Gram Stain - Final, Complete 10/08/18 Wound Culture - Final, Complete Mixed Bacterial Deisy Pseudomonas aeruginosa Assessment/Plan Assessment/Plan (1) Shortness of breath at rest Status: Acute Assessment & Plan: 10/14: Multifactoral: Dr Samuel consulted, Dose of Lasix given today, Encouraged activity 10/15: Improving with diuresis, consider additional dose in AM (2) Yeast infection Status: Acute Assessment & Plan: 10/14: Yeast found on the tip of the PICC, Will have to place another once blood cultures are clear, continue Eraxis 10/15: Continue treatment for 14 days (3) Enterocutaneous fistula Status: Chronic Assessment & Plan: 10/14: Dr Hallman consulted, not a surgical candidate at this time (4) Weakness generalized Status: Acute Assessment & Plan: 10/14: PT/OT, Encouraged patient to begin focusing on strength (5) Malnutrition Status: Acute Assessment & Plan: 10/14: Patient TPN dependent at this time Qualifiers: (6) Renal insufficiency Status: Resolved (7) Septic shock Status: Resolved (8) Urinary tract infection Status: Acute Qualifiers: Qualified Codes: N39.0 - Urinary tract infection, site not specified (9) Hemorrhage from wound Status: Resolved Clinical Quality Measures DVT/VTE Risk/Contraindication: Risk Factor Score Per Nursin RFS Level Per Nursing on Admit: 4+=Very High ARCHIE ESPINO MD Oct 15, 2018 19:04
--- NOTE | 2018-10-15 23:50 | NUR ---
ABD DRESSING CHANGED. WET TO DRY DRESSING ON OPEN AREA. SKIN BARRIER CREAM APPLIED TO SURROUNDING SKIN. ABD PAD PLACED OVER WOUND AREA. PT TOLERATED DRESSING CHANGE WELL. WILL CONTINUE TO MONITOR.
[2018-10-16] MEDS: inSUlin ASPART (NovoLOG) 1 UNIT/0.01 ML (CHARGE PER UNIT) SC SCH ×4 (01:07→18:36)
[2018-10-16] MEDS: RT-ALBUTEROL/IPRATROPIUM 3 ML (DUONEB) VIAL INH SCH ×4 (03:11→19:40)
[2018-10-16 04:12] VITALS: BP 129/87
[2018-10-16 04:28] LABS: BASOPHILS % (AUTO) 0 % (0-10); EOSINOPHILS % (AUTO) 0 % (0-10); HEMATOCRIT 35 % (35-52); HEMOGLOBIN 11.2 G/DL (11.5-16.0); LYMPHOCYTES # (AUTO) 1.2 X 10^3 (1.0-4.0); LYMPHOCYTES % (AUTO) 10 % (12-44); MEAN CORPUSCULAR HEMOGLOBIN 32 PG (25-34); MEAN CORPUSCULAR HGB CONC 32 G/DL (32-36); MEAN CORPUSCULAR VOLUME 99 FL (80-99); MEAN PLATELET VOLUME 11.5 FL (7.4-10.4); MONOCYTES # (AUTO) 1.1 X 10^3 (0.0-1.0); MONOCYTES % (AUTO) 9 % (0-12); NEUTROPHILS # (AUTO) 9.6 X 10^3 (1.8-7.8); NEUTROPHILS % (AUTO) 81 % (42-75); PLATELET COUNT 267 10^3/uL (130-400); RED CELL DISTRIBUTION WIDTH 20.3 % (10.0-14.5); WHITE BLOOD COUNT 11.9 10^3/uL (4.3-11.0)
[2018-10-16 04:41] LABS: BUN/CREATININE RATIO 34; CARBON DIOXIDE 27 MMOL/L (21-32); CHLORIDE 102 MMOL/L (98-107); GFR ESTIMATED > 60; GLUCOSE 249 MG/DL (70-105); MAGNESIUM 2.3 MG/DL (1.8-2.4); PHOSPHORUS 3.8 MG/DL (2.3-4.7); POTASSIUM 3.9 MMOL/L (3.6-5.0); SODIUM 141 MMOL/L (135-145)
--- NOTE | 2018-10-16 04:41 | OPERATIVE REPORT ---
DATE OF SERVICE: PREOPERATIVE DIAGNOSES: Venous insufficiency, malnutrition and candidemia. POSTOPERATIVE DIAGNOSES: Venous insufficiency, malnutrition and candidemia. PROCEDURE: Insertion of triple lumen catheter left IJ with ultrasound guidance. SURGEON: Dionicio Hallman DO. GYMNASIUM TEACHER: None. ANESTHESIA: Local lidocaine. BLOOD LOSS: Scant. FLUIDS: None. INDICATION FOR PROCEDURE: The patient is a 63-year-old female, who unfortunately has candidemia, had removed her PICC line. She is getting TPN and needs some long-term TPN because of hernia, fistula and mesh protruding from her abdomen. She has a right IJ, but it has been seven days, so she needs it be removed because I cannot see also it will get infected. FINDINGS: Left IJ placed with ultrasound guidance without any difficulty. PROCEDURE NOTE: After informed consent was obtained, the patient was in her bed. She was sterilely prepped and draped in a normal fashion. Local lidocaine was used to infiltrate the left neck and then using ultrasound, I could see the left IJ. I advanced the 18-gauge needle with negative inspiration, watched it enter the left IJ, good flush of blood, removed the syringe, placed a guidewire down the needle using Seldinger technique, removed the needle, made a stab incision along the guidewire with a #11 blade and then over the guidewire, placed a dilator using Seldinger technique, removed the dilator and then over the guidewire, placed the triple lumen catheter, went in easily. I then removed the guidewire and then had placed locking caps on the other 2 ports, placed a locking cap on the 3rd port, then easily aspirated, got a good flush of blood and then flushed and then did a port, again got a good flush of blood and easily flushed. I then closed these off. I sutured this in place with a 3-0 silk suture, sutured this in place, then cleaned and dried the area, placed a Biopatch and then an occlusive dressing. The patient tolerated the procedure. Sponge, instrument and needle count correct at the end of the case. Job ID: [id number] DocumentID: [id number] Dictated Date: 10/15/2018 19:00:23 General Practice Date: 10/16/2018 03:25:23 Dictated By: DIONICIO HALLMAN DO
[2018-10-16] MEDS: HYDROCORTISONE 100 MG/2 ML (Solu-CORTEF) VIAL IV SCH ×3 (06:27→18:36)
[2018-10-16 08:00] VITALS: BP 126/77
--- NOTE | 2018-10-16 08:49 | Physical Therapy Daily Note ---
PT Daily Note-Current Subjective Patient in bed pre tx, agrees to PT, has no complaints of pain at rest. Appearance Patient in recliner post tx with nurse call, phone, tray, all needs met. Mental Status Patient Orientation: Person, Place, Situation Attachments: Oxygen, IV 2L O2 nasal canula Transfers Therapy Code Descriptions/Definitions Functional [facility] Measure: 0=Not Assessed/NA 4=Minimal Assistance 1=Total Assistance 5=Supervision or Setup 2=Maximal Assistance 6=Modified [facility] 3=Moderate Assistance 7=Complete [facility] Therapy Quality Codes: 6 Independent with activity with or without an assistive device 5 Patient requires set up or clean up by helper. Patient completes activity by themselves 4 Supervision or touching assist (CGA). [place] provide cues , steadying assist 3 The helper provides less than half the effort to complete the activity 2 The helper provides more than half the effort to complete the activity 1 Dependent. The helper does all the effort to complete an activity 7 Patient refused to complete or attempt activity 9 The patient did not perform the activity before the current illness or injury 88 Not attempted due to Medical conditions or safety concerns Transfers (B, C, W/C) (FIM): 4 Scootin Rollin Supine to/from Sit: 4 Sit to/from Stand: 5 Bed to/from Chair: 5 Min assist for supine to sit. Weight Bearing Right Lower Extremity: Right Full Weight Bearing Left Lower Extremity: Left Weight Bearing/Tolerated Gait Training Gait (FIM): 1 Distance: 5' Gait Level of Assist: 5 Gait Persons Needed: 1 Gait Assistive Device: FWW Slow, has left hip pain, steady, no LOB. Exercises Seated Therapy Exercises: Ankle pumps, Long arc quads, Hip flexion Seated Reps: 15 Treatments bed mobility and transfers, ambulation, LE exercise Assessment Current Status: Fair Progress Patient was able to ambulate a short distance, improving strength. PT Short Term Goals Short Term Goals Transfers (B,C,W/C) (FIM): 5 PT Assisted Goals Lock Maintenance Supervisor Goals PT Lock Maintenance Supervisor Goals Time Frame: Nov 02, 2018 Transfers (B,C,W/C) (FIM): 6 Gait (FIM): 6 Gait distance (FIM): 3=150 ft Distance: 150' Gait Level of Assist: 6 Gait Assistive Device: FWW PT Plan Problem List Problem List: Activity Tolerance, Functional Strength, Safety, Balance, Gait, Transfer, Bed Mobility Treatment/Plan Treatment Plan: Continue Plan of Care Treatment Plan: Bed Mobility, Education, Functional Activity Marcelina, Functional Strength, Gait, Safety, Therapeutic Exercise, Transfers Treatment Duration: Nov 02, 2018 Frequency: 6 times per week Estimated Hrs Per Day: .25 hour per day Patient and/or Family Agrees t: Yes Safety Risks/Education Patient Education: Gait Training, Transfer Techniques, Correct Positioning, Safety Issues Teaching Recipient: Patient Teaching Methods: Demonstration, Discussion Response to Teaching: Reinforcement Needed Time/GCodes Time In: 0830 Time Out: 0845 Total Billed Treatment Time: 15 Total Billed Treatment 1 visit FA Juani' PRUDENCIO AVILA PT Oct 16, 2018 08:49
[2018-10-16] MEDS: CIPROFLOXACIN IV 400MG/200ML 200 ML IV SCH ×2 (08:52→20:40)
[2018-10-16] MEDS: PANTOPRAZOLE 40 MG (PROTONIX) VIAL IV SCH (08:53)
[2018-10-16] MEDS ORDERED: FUROSEMIDE 40 MG/4 ML INJ (LASIX) IVP NR (09:00)
--- NOTE | 2018-10-16 11:22 | Occupational Ther Daily Note ---
OT Current Status-Daily Note Subjective Pt. does not report pain. Appearance Pt. is up in chair. Mental Status/Objective Patient Orientation: Person, Place, Time, Situation Therapy Code Descriptions/Definitions Functional [place] Measure: 0=Not Assessed/NA 4=Minimal Assistance 1=Total Assistance 5=Supervision or Setup 2=Maximal Assistance 6=Modified [place] 3=Moderate Assistance 7=Complete [place] Attachments: [place] Catheter, IV, Oxygen ADL-Treatment Grooming (FIM): 5 (Set up to brush teeth and wash face. Pt. reports that she washed her hair yesterday with shower cap, and declines doing so today. Pt. also reports that she has already washed face today.) Pt. is up in chair. Agrees to complete grooming skills. Pt. able to put leg rest down on chair to sit upright. Pt. able to complete these tasks. came in to talk with pt. All needs met. Education OT Patient Education: Correct positioning, Modified ADL techniques, Progress toward Goal/Update tx plan, Purpose of tx/functional activities, Reviewed precautions, Rehab process Teaching Recipient: Patient Teaching Methods: Demonstration, Discussion Response to Teaching: Verbalize Understanding, Return Demonstration OT Short Term Goals Short Term Goals Grooming(FIM): 5 Bathing(FIM): 5 Upper Body Dressing(FIM): 5 Lower Body Dressing(FIM): 5 Toileting(FIM): 5 Transfers (B,C,W/C) (FIM): 5 Toilet/Commode Transfer(FIM): 5 1=Demonstrate adherence to instructed precautions during ADL tasks. 2=Patient will verbalize/demonstrate understanding of assistive devices/m odifications for ADL. 3=Patient will improve strength/tolerance for activity to enable patient to perform ADL's. OT Snf Goals Snf Goals Time Frame: Oct 23, 2018 Grooming(FIM): 6 Bathing(FIM): 6 Bathing Location: L Arm, R Arm, L Upper Leg, R Upper Leg, L Lower Leg (including foot), R Lower Leg (including foot), Chest, Abdomen, Buttocks, Perineal Area Upper Body Dressing(FIM): 6 Lower Body Dressing(FIM): 6 Toileting(FIM): 6 Transfers (B,C,W/C) (FIM): 6 Toilet/Commode Transfer(FIM): 6 Shower Transfer(FIM): 6 Additional Goals: 1-Demonstrate ADL Tasks, 2-Verbalize Understanding, 3- ImproveStrength/Marcelina 1=Demonstrate adherence to instructed precautions during ADL tasks. 2=Patient will verbalize/demonstrate understanding of assistive devices/m odifications for ADL. 3=Patient will improve strength/tolerance for activity to enable patient to perform ADL's. OT Education/Plan Problem List/Assessment Assessment: Decreased Activ Tolerance, Impaired I ADL's, Impaired Self-Care Skills pt presents with functional limitations affecting areas of ADLS/ functional transfers with the above mention deficits. pt would benefit from OT services to increase independence with ADLS/ functional transfers. Discharge Recommendations Plan/Recommendations: Continue POC Treatment Plan/Plan of Care Treatment,Training & Education: Yes Patient would benefit from OT for education, treatment and training to promote i ndependence in ADL's, mobility, safety and/or upper extremity function for ADL's. Plan of Care: ADL Retraining, Functional Mobility, Group Exercise/Act as Ind, UE Funct Exercise/Act Treatment Duration: Oct 23, 2018 Frequency: 5 times per week Estimated Hrs Per Day: .25 hour per day Agreement: Yes Rehab Potential: Fair Time/GCodes Start Time: 09:35 Stop Time: 09:50 Total Time Billed (hr/min): 15 Billed Treatment Time 1, ADL MILDRED MOON OT Oct 16, 2018 11:22
[2018-10-16] MEDS: ANIDULAFUNGIN 100 MG/NS 100 ML IV SCH ×2 (15:46)
[2018-10-16 15:57] VITALS: BP 120/75
[2018-10-16] MEDS ORDERED: POTASSIUM CHLORIDE IV SCH ×12 (17:00)
[2018-10-16] MEDS ORDERED: [UNRECOGNIZED DRUG - OTHER] IV SCH ×12 (17:00)
[2018-10-16] MEDS ORDERED: SODIUM CHLORIDE IV SCH ×12 (17:00)
--- NOTE | 2018-10-16 17:58 | Progress Note ---
Subjective Time Seen by a Provider: 12:01 Subjective/Events-last exam Pt seen and examined, no new complaints and no changes. Pt denies abdominal pain, but has pain on abdominal skin from the excoriation. Pt has gained almost 50lbs since she has been here. Review of Systems General: Fatigue, Malaise Pulmonary: No Dyspnea, No Cough Cardiovascular: No: Chest Pain, Palpitations Gastrointestinal: No: Nausea, Vomiting Objective Exam Vital Signs Date Time Temp Pulse Resp B/P (MAP) Pulse Ox O2 Delivery O2 Flow Rate FiO2 10/16/18 15:57 97.5 66 18 120/75 (90) 91 Room Air 2.00 10/16/18 14:30 91 Nasal Cannula 2.00 10/16/18 09:00 91 High Flow N/C 2.00 10/16/18 08:00 98.3 55 18 126/77 (93) 91 High Flow N/C 2.00 10/16/18 04:12 97.0 62 20 129/87 (101) 91 High Flow N/C 3.00 10/16/18 00:59 97.4 62 20 96 High Flow N/C 3.00 10/15/18 21:20 High Flow N/C 2.00 10/15/18 20:34 Nasal Cannula 2.00 I & O 10/16/18 07:00 Intake Total 2822 ml Output Total 2250 ml Balance 572 ml Capillary Refill : Less Than 3 SecondsLess Than 3 Seconds General Appearance: No Apparent Distress, Chronically ill, Obese HEENT: PERRL/EOMI, Pharynx Normal, Moist Mucous Membranes Respiratory: Chest Non Tender, Lungs Clear, Normal Breath Sounds, No Accessory Muscle Use, No Respiratory Distress Cardiovascular: Regular Rate, Rhythm, No Edema, No Gallop, No JVD, No Murmur, Normal Peripheral Pulses Gastrointestinal: normal bowel sounds, soft, other (Large portion of small bowel visible, mesh visible, skin at base of wound now has excoriation) Extremity: No Calf Tenderness, Pedal Edema Neurologic/Psychiatric: Alert, Oriented x3, No Motor/Sensory Deficits, Depressed Affect Skin: Normal Color, Warm/Dry Results Lab Laboratory Tests 10/15/18 18:21: Glucometer 162H 10/16/18 00:58: Glucometer 248H 10/16/18 04:15: White Blood Count 11.9H, Red Blood Count 3.53L, Hemoglobin 11.2L, Hematocrit 35, Mean Corpuscular Volume 99, Mean Corpuscular Hemoglobin 32, Mean Corpuscular Hemoglobin Concent 32, Red Cell Distribution Width 20.3H, Platelet Count 267, Mean Platelet Volume 11.5H, Neutrophils (%) (Auto) 81H, Lymphocytes (%) (Auto) 10L, Monocytes (%) (Auto) 9, Eosinophils (%) (Auto) 0, Basophils (%) (Auto) 0, Neutrophils # (Auto) 9.6H, Lymphocytes # (Auto) 1.2, Monocytes # (Auto) 1.1H, Eosinophils # (Auto) 0.0, Basophils # (Auto) 0.0, Sodium Level 141, Potassium Level 3.9, Chloride Level 102, Carbon Dioxide Level 27, Anion Gap 12, Blood Urea Nitrogen 27H, Creatinine 0.80, Estimat Glomerular Filtration Rate > 60, BUN/Creatinine Ratio 34, Glucose Level 249H, Calcium Level 8.0L, Phosphorus Level 3.8, Magnesium Level 2.3 10/16/18 06:04: Glucometer 247H 10/16/18 11:07: Glucometer 175H Microbiology 10/15/18 Catheter Tip Culture - Preliminary, Resulted 10/08/18 MRSA Screen - Final, Complete 10/08/18 Urine Culture - Final, Complete Enterobacter cloacae Enterococcus gallinarum See Comments 10/08/18 Gram Stain - Final, Complete 10/08/18 Wound Culture - Final, Complete Mixed Bacterial Deisy Pseudomonas aeruginosa Assessment/Plan Assessment/Plan Assessment/Plan Sepsis - resolved Candidemia - awaiting final sensitivity Intestinal Bleeding - appears to have stopped Fistula Recurrent Ventral hernia Pt needs more Lasix. Still waiting to see if yeast grows in new cultures; will take a while. Continue Cipro to treat Urine and bacteria in abdominal wound. Yeast sensitivity still not back, continue TPN. Maximum medical care. If pt is in ARU or swing bed and still here can do surgery at that time; however, it most likely will be at least 10 more days until blood is clear and it is safe to do surgery. Clinical Quality Measures DVT/VTE Risk/Contraindication: Risk Factor Score Per Nursin RFS Level Per Nursing on Admit: 4+=Very High MANDA STEWART DO Oct 16, 2018 17:58
--- NOTE | 2018-10-16 22:12 | Progress Note (SOAP) ---
Subjective Subjective/Events-last exam Patient doing well. States that she is breathing better since lasix. Still having LE edema and pain that is limiting walking. NPO. Review of Systems Date Seen by Provider: Oct 16, 2018 Time Seen by Provider: 10:00 Pulmonary: Dyspnea Cardiovascular: No: Chest Pain, Palpitations Gastrointestinal: Abdominal Pain; No: Nausea, Vomiting Neurological: Weakness Objective Exam Last Set of Vital Signs Vital Signs Date Time Temp Pulse Resp B/P (MAP) Pulse Ox O2 Delivery O2 Flow Rate FiO2 10/16/18 19:41 93 FI02 2 10/16/18 15:57 97.5 66 18 120/75 (90) 2.00 Capillary Refill : Less Than 3 SecondsLess Than 3 Seconds I&O Intake and Output 10/16/18 00:00 Intake Total 4422 ml Output Total 2350 ml Balance 2072 ml Intake Oral 0 ml IV Total 4422 ml Output Urine Total 2350 ml General: Alert, Oriented X3, Cooperative, No Acute Distress Lungs: Clear to Auscultation, Normal Air Movement Heart: Regular Rate, No Murmurs Abdomen: Normal Bowel Sounds, Soft Neuro: Cranial Nerves 3-12 NL Results/Procedures Lab Laboratory Tests 10/16/18 00:58: Glucometer 248H 10/16/18 04:15: White Blood Count 11.9H, Red Blood Count 3.53L, Hemoglobin 11.2L, Hematocrit 35, Mean Corpuscular Volume 99, Mean Corpuscular Hemoglobin 32, Mean Corpuscular Hemoglobin Concent 32, Red Cell Distribution Width 20.3H, Platelet Count 267, Mean Platelet Volume 11.5H, Neutrophils (%) (Auto) 81H, Lymphocytes (%) (Auto) 10L, Monocytes (%) (Auto) 9, Eosinophils (%) (Auto) 0, Basophils (%) (Auto) 0, Neutrophils # (Auto) 9.6H, Lymphocytes # (Auto) 1.2, Monocytes # (Auto) 1.1H, Eosinophils # (Auto) 0.0, Basophils # (Auto) 0.0, Sodium Level 141, Potassium Level 3.9, Chloride Level 102, Carbon Dioxide Level 27, Anion Gap 12, Blood Urea Nitrogen 27H, Creatinine 0.80, Estimat Glomerular Filtration Rate > 60, BUN/Creatinine Ratio 34, Glucose Level 249H, Calcium Level 8.0L, Phosphorus Level 3.8, Magnesium Level 2.3 10/16/18 06:04: Glucometer 247H 10/16/18 11:07: Glucometer 175H 10/16/18 17:58: Glucometer 186H Microbiology 10/15/18 Catheter Tip Culture - Preliminary, Resulted 10/08/18 MRSA Screen - Final, Complete 10/08/18 Urine Culture - Final, Complete Enterobacter cloacae Enterococcus gallinarum See Comments 10/08/18 Gram Stain - Final, Complete 10/08/18 Wound Culture - Final, Complete Mixed Bacterial Deisy Pseudomonas aeruginosa Assessment/Plan Assessment/Plan (1) Shortness of breath at rest Status: Acute Assessment & Plan: 10/14: Multifactoral: Dr Samuel consulted, Dose of Lasix given today, Encouraged activity 10/15: Improving with diuresis, consider additional dose in AM 10/16: improving with lasix, continue to titrate oxygen as tolerated (2) Yeast infection Status: Acute Assessment & Plan: 10/14: Yeast found on the tip of the PICC, Will have to place another once blood cultures are clear, continue Eraxis 10/15: Continue treatment for 14 days 10/16: Plan to replace PICC after completed treatment, Discussed swing bed status (3) Enterocutaneous fistula Status: Chronic Assessment & Plan: 10/14: Dr Hallman consulted, not a surgical candidate at this time (4) Weakness generalized Status: Acute Assessment & Plan: 10/14: PT/OT, Encouraged patient to begin focusing on strength 10/16: Encouraged patient to start standing to help mobilize fluid (5) Malnutrition Status: Acute Assessment & Plan: 10/14: Patient TPN dependent at this time Qualifiers: (6) Renal insufficiency Status: Resolved (7) Septic shock Status: Resolved (8) Urinary tract infection Status: Acute Qualifiers: Qualified Codes: N39.0 - Urinary tract infection, site not specified (9) Hemorrhage from wound Status: Resolved Clinical Quality Measures DVT/VTE Risk/Contraindication: Risk Factor Score Per Nursin RFS Level Per Nursing on Admit: 4+=Very High ARCHIE ESPINO MD Oct 16, 2018 22:12
[2018-10-17] VITALS: BP 132/82
[2018-10-17] MEDS: inSUlin ASPART (NovoLOG) 1 UNIT/0.01 ML (CHARGE PER UNIT) SC SCH ×3 (00:22→11:33)
[2018-10-17] MEDS: HYDROCORTISONE 100 MG/2 ML (Solu-CORTEF) VIAL IV SCH ×3 (00:22→11:56)
[2018-10-17] MEDS: RT-ALBUTEROL/IPRATROPIUM 3 ML (DUONEB) VIAL INH SCH ×2 (02:58→09:07)
[2018-10-17 06:34] LABS: BASOPHILS % (AUTO) 0 % (0-10); EOSINOPHILS % (AUTO) 0 % (0-10); HEMATOCRIT 36 % (35-52); HEMOGLOBIN 11.4 G/DL (11.5-16.0); LYMPHOCYTES # (AUTO) 1.2 X 10^3 (1.0-4.0); LYMPHOCYTES % (AUTO) 11 % (12-44); MEAN CORPUSCULAR HEMOGLOBIN 31 PG (25-34); MEAN CORPUSCULAR HGB CONC 32 G/DL (32-36); MEAN CORPUSCULAR VOLUME 98 FL (80-99); MEAN PLATELET VOLUME 11.6 FL (7.4-10.4); MONOCYTES # (AUTO) 1.1 X 10^3 (0.0-1.0); MONOCYTES % (AUTO) 10 % (0-12); NEUTROPHILS # (AUTO) 8.7 X 10^3 (1.8-7.8); NEUTROPHILS % (AUTO) 79 % (42-75); PLATELET COUNT 254 10^3/uL (130-400); RED CELL DISTRIBUTION WIDTH 19.8 % (10.0-14.5); WHITE BLOOD COUNT 11.1 10^3/uL (4.3-11.0)
[2018-10-17 06:57] LABS: BUN/CREATININE RATIO 35; CARBON DIOXIDE 31 MMOL/L (21-32); CHLORIDE 99 MMOL/L (98-107); CREATININE SERUM 0.83 MG/DL (0.60-1.30); GFR ESTIMATED > 60; GLUCOSE 235 MG/DL (70-105); MAGNESIUM 2.3 MG/DL (1.8-2.4); PHOSPHORUS 3.7 MG/DL (2.3-4.7); POTASSIUM 3.6 MMOL/L (3.6-5.0); SODIUM 141 MMOL/L (135-145)
[2018-10-17 08:00] VITALS: BP 132/63
--- NOTE | 2018-10-17 08:00 | NUR ---
TPN DECREASED TO 60 CC/HR.
[2018-10-17] MEDS: CIPROFLOXACIN IV 400MG/200ML 200 ML IV SCH (09:08)
[2018-10-17] MEDS: PANTOPRAZOLE 40 MG (PROTONIX) VIAL IV SCH (09:08)
--- NOTE | 2018-10-17 10:00 | Physical Therapy Daily Note ---
PT Daily Note-Current Subjective Patient agrees to PT. Mental Status Patient Orientation: Normal For Age Attachments: Oxygen, Drains, Ureña Catheter, IV Transfers Therapy Code Descriptions/Definitions Functional [place] Measure: 0=Not Assessed/NA 4=Minimal Assistance 1=Total Assistance 5=Supervision or Setup 2=Maximal Assistance 6=Modified [place] 3=Moderate Assistance 7=Complete [place] Therapy Quality Codes: 6 Independent with activity with or without an assistive device 5 Patient requires set up or clean up by helper. Patient completes activity by themselves 4 Supervision or touching assist (CGA). [place] provide cues , steadying assist 3 The helper provides less than half the effort to complete the activity 2 The helper provides more than half the effort to complete the activity 1 Dependent. The helper does all the effort to complete an activity 7 Patient refused to complete or attempt activity 9 The patient did not perform the activity before the current illness or injury 88 Not attempted due to Medical conditions or safety concerns Transfers (B, C, W/C) (FIM): 6 Scootin Sit to/from Stand: 6 Weight Bearing Right Lower Extremity: Right Full Weight Bearing Left Lower Extremity: Left Weight Bearing/Tolerated Gait Training Gait (FIM): 1 Distance (FIM): 1=up to 49 ft Distance: 10' Gait Level of Assist: 6 Gait Assistive Device: FWW functional Exercises Seated Therapy Exercises: Ankle pumps, Long arc quads Seated Reps: 15 (2 sets) Standing: Marching Standing Reps: 15 (3 sets) Assessment Patient tolerates minimal activity and ceases treatment due to fatigue. PT to continue to increase activity as tolerated by patient. PT Short Term Goals Short Term Goals Transfers (B,C,W/C) (FIM): 5 PT Analytic Manager Goals [employer] Goals PT Analytic Manager Goals Time Frame: Nov 02, 2018 Transfers (B,C,W/C) (FIM): 6 Gait (FIM): 6 Gait distance (FIM): 3=150 ft Distance: 150' Gait Level of Assist: 6 Gait Assistive Device: FWW PT Plan Treatment/Plan Treatment Plan: Continue Plan of Care Treatment Plan: Bed Mobility, Education, Functional Activity Marcelina, Functional Strength, Gait, Safety, Therapeutic Exercise, Transfers Treatment Duration: Nov 02, 2018 Frequency: 6 times per week Estimated Hrs Per Day: .25 hour per day Patient and/or Family Agrees t: Yes Time/GCodes Time In: 925 Time Out: 946 Total Billed Treatment Time: 21 Total Billed Treatment 1 visit Ex 21min PRIMO JOSE PT Oct 17, 2018 10:00
--- NOTE | 2018-10-17 10:04 | NUR ---
TPN: TPN CONTINUES TO CYCLE OVER 16 HOURS DAILY. PROVIDING 1444 KCAL AND 100 GM PROTEIN, MEETING METABOLIC NEEDS FOR CLASS III OBESE PT. DELIVERS 1772 ML FLUID DAILY. LABS; BS 235. PLAN: CONTINUE CURRENT TPN'S KCAL AND PROTEIN. WILL ADVANCE INSULIN IN TPN WITH GOAL TO MAINTAIN BS AT 180 OR LESS.
--- NOTE | 2018-10-17 10:13 | NUR ---
SPOKE WITH DR BATEMAN AND NOTIFIED THAT PT IS REFUSING TX AND ORDERS RECEIVED TO CHANGE BREATHING TX TO PRN.
[2018-10-17] MEDS ORDERED: RT-ALBUTEROL/IPRATROPIUM 3 ML (DUONEB) VIAL INH PRN (10:30)
--- NOTE | 2018-10-17 11:03 | Pulmonary Progress Note ---
Subjective Time Seen by a Provider: 11:02 Subjective/Events-last exam No complications noted. Sepsis Event Evaluation Height, Weight, BMI Height: 5'3.00" Weight: 282lbs. 9.0oz. 128.452661uf; 41.1 BMI Method:Actual Exam Exam Vital Signs Date Time Temp Pulse Resp B/P (MAP) Pulse Ox O2 Delivery O2 Flow Rate FiO2 10/17/18 09:07 93 High Flow N/C 2.00 10/17/18 09:00 Nasal Cannula 2.00 10/17/18 08:00 97.8 64 18 132/63 (86) 96 High Flow N/C 2.00 10/17/18 02:59 90 FI02 2 10/17/18 00:00 97.4 53 18 132/82 (99) 90 High Flow N/C 2.00 10/16/18 20:00 90 FI02 2.00 10/16/18 19:41 93 FI02 2 10/16/18 15:57 97.5 66 18 120/75 (90) 91 Room Air 2.00 10/16/18 14:30 91 Nasal Cannula 2.00 I & O 10/17/18 07:00 Intake Total 330 ml Output Total 3850 ml Balance -3520 ml Height & Weight Height: 5'3.00" Weight: 282lbs. 9.0oz. 128.353258zi; 41.1 BMI Method:Actual General Appearance: No Apparent Distress, Chronically ill, Obese HEENT: PERRL/EOMI, Pharynx Normal, Moist Mucous Membranes Respiratory: Chest Non Tender, Lungs Clear, Normal Breath Sounds, No Accessory Muscle Use, No Respiratory Distress Cardiovascular: Regular Rate, Rhythm, No Edema, No Gallop, No JVD, No Murmur, Normal Peripheral Pulses Capillary Refill: Less Than 3 Seconds Gastrointestinal: normal bowel sounds, soft, other (Large portion of small bowel visible, mesh visible, skin at base of wound now has excoriation) Extremity: No Calf Tenderness, Pedal Edema Neurologic/Psychiatric: Alert, Oriented x3, No Motor/Sensory Deficits, Depressed Affect Skin: Normal Color, Warm/Dry Results Lab Laboratory Tests 10/16/18 04:15 10/17/18 06:15 Assessment/Plan Assessment/Plan Sepsis - improving -Cipro, and Eraxis - wound care Candidiasis bacteremia -Eraxis Wound culture - pseudomonas -Cipro Metabolic lactic acidosis -IVF pulmonary edema - secondary to IVF/sepsis protocol-- improving - SOB is improved Recurrent Ventral hernia -Dr. Hallman has been following pt -Possible surgery today Urinary tract infection Enterocutaneous fistula JESSICA BATEMAN DO Oct 17, 2018 11:03
[2018-10-17] MEDS ORDERED: FUROSEMIDE 40 MG/4 ML INJ (LASIX) IVP NR (11:45)
[2018-10-17] MEDS ORDERED: FUROSEMIDE 40 MG/4 ML INJ (LASIX) ONE (11:48)
--- NOTE | 2018-10-17 13:15 | Discharge Summary ---
Diagnosis/Chief Complaint Date of Admission Oct 08, 2018 at 15:19 Date of Discharge Discharge Diagnosis Problems/Diagnosis: (1) Shortness of breath at rest Assessment & Plan: 10/14: Multifactoral: Dr Samuel consulted, Dose of Lasix given today, Encouraged activity 10/15: Improving with diuresis, consider additional dose in AM 10/16: improving with lasix, continue to titrate oxygen as tolerated Status: Acute (2) Yeast infection Assessment & Plan: 10/14: Yeast found on the tip of the PICC, Will have to place another once blood cultures are clear, continue Eraxis 10/15: Continue treatment for 14 days 10/16: Plan to replace PICC after completed treatment, Discussed swing bed status Status: Acute (3) Enterocutaneous fistula Assessment & Plan: 10/14: Dr Hallman consulted, not a surgical candidate at this time Status: Chronic (4) Weakness generalized Assessment & Plan: 10/14: PT/OT, Encouraged patient to begin focusing on strength 10/16: Encouraged patient to start standing to help mobilize fluid Status: Acute (5) Malnutrition Assessment & Plan: 10/14: Patient TPN dependent at this time Qualifiers: Status: Acute (6) Renal insufficiency Status: Resolved Resolution Date/Time: 10/10/18 @ 13:44 (7) Septic shock Status: Resolved Resolution Date/Time: 10/11/18 @ 13:44 (8) Urinary tract infection Qualifiers: Qualified Codes: N39.0 - Urinary tract infection, site not specified Status: Acute (9) Hemorrhage from wound Status: Resolved Resolution Date/Time: 10/13/18 @ 13:43 Discharge Summary-Simple/Stand Consultations Discharge Physical Examination Allergies: Coded Allergies: linezolid (Verified Allergy, Severe, swelling to tongue, skin rash, 09/13/18) Vitals & I&Os Vital Sign - Last 12Hours Date Time Temp Pulse Resp B/P (MAP) Pulse Ox O2 Delivery O2 Flow Rate FiO2 10/17/18 09:07 93 High Flow N/C 2.00 10/17/18 08:00 97.8 64 18 132/63 (86) 10/17/18 02:59 2 Intake and Output 10/17/18 00:00 Intake Total 130 ml Output Total 3150 ml Balance -3020 ml Hospital Course See final discharge diagnosis. Discharge Instructions to patient/family Please see electronic discharge instructions given to patient. Discharge Medications Reviewed and agree with Discharge Medication list on patient's Discharge Instruction sheet Clinical Quality Measures DVT/VTE Risk/Contraindication: Risk Factor Score Per Nursin RFS Level Per Nursing on Admit: 4+=Very High ARCHIE ESPINO MD Oct 17, 2018 13:15
--- NOTE | 2018-10-17 13:24 | NUR ---
DISCHARGED TO [facility] STATUS.
--- NOTE | 2018-10-17 13:52 | Occupational Ther Daily Note ---
OT Current Status-Daily Note Subjective Pt alert, sitting in recliner. Pt agrees to therapy. No c/o pain. Mental Status/Objective Patient Orientation: Person, Place, Time, Situation Therapy Code Descriptions/Definitions Functional [place] Measure: 0=Not Assessed/NA 4=Minimal Assistance 1=Total Assistance 5=Supervision or Setup 2=Maximal Assistance 6=Modified [place] 3=Moderate Assistance 7=Complete [place] Attachments: Ureña Catheter, IV, Telemetry Other Treatment Medium resistance theraband given to pt. Skilled instructions required for correct technique and education for theraband. Pt tolerated 2 sets 10 reps of 4 UE exercises. After therapy, pt sitting in recliner with call light/phone in reach. All needs met in room. OT Short Term Goals Short Term Goals Grooming(FIM): 5 Bathing(FIM): 5 Upper Body Dressing(FIM): 5 Lower Body Dressing(FIM): 5 Toileting(FIM): 5 Transfers (B,C,W/C) (FIM): 5 Toilet/Commode Transfer(FIM): 5 1=Demonstrate adherence to instructed precautions during ADL tasks. 2=Patient will verbalize/demonstrate understanding of assistive devices/modifications for ADL. 3=Patient will improve strength/tolerance for activity to enable patient to perform ADL's. OT [employer] Goals [employer] Goals Time Frame: Oct 23, 2018 Grooming(FIM): 6 Bathing(FIM): 6 Bathing Location: L Arm, R Arm, L Upper Leg, R Upper Leg, L Lower Leg (including foot), R Lower Leg (including foot), Chest, Abdomen, Buttocks, Perineal Area Upper Body Dressing(FIM): 6 Lower Body Dressing(FIM): 6 Toileting(FIM): 6 Transfers (B,C,W/C) (FIM): 6 Toilet/Commode Transfer(FIM): 6 Shower Transfer(FIM): 6 Additional Goals: 1-Demonstrate ADL Tasks, 2-Verbalize Understanding, 3- ImproveStrength/Marcelina 1=Demonstrate adherence to instructed precautions during ADL tasks. 2=Patient will verbalize/demonstrate understanding of assistive devices/modifications for ADL. 3=Patient will improve strength/tolerance for activity to enable patient to perform ADL's. OT Education/Plan Problem List/Assessment Assessment: Decreased Activ Tolerance, Decreased UE Strength pt presents with functional limitations affecting areas of ADLS/ functional transfers with the above mention deficits. pt would benefit from OT services to increase independence with ADLS/ functional transfers. Discharge Recommendations Plan/Recommendations: Continue POC Treatment Plan/Plan of Care Patient would benefit from OT for education, treatment and training to promote independence in ADL's, mobility, safety and/or upper extremity function for ADL's. Plan of Care: ADL Retraining, Functional Mobility, Group Exercise/Act as Ind, UE Funct Exercise/Act Treatment Duration: Oct 23, 2018 Frequency: 5 times per week Estimated Hrs Per Day: .25 hour per day Agreement: Yes Rehab Potential: Fair Time/GCodes Start Time: 13:15 Stop Time: 13:30 Total Time Billed (hr/min): 15 Billed Treatment Time 1 visit-EX 1 (15 min) MAVERICK BRANDON Oct 17, 2018 13:52
--- NOTE | 2018-10-17 15:32 | NUR ---
Swing bed note: Request for swing bed submitted to patient's [employer] insurance [employer] for authorization/denial. Patient has been authorized by [employer] [facility] for swing bed admission for today for continued need of IV Nutrition, IV abx, Wound Care (fistula), with PT and OT for continued strengthening. Auth number [id number] for 3 days. Patient will need updated clinical information sent to [employer] [facility] on Sunday10/21/18 for request for continued authorization. and f/u phone number for any questions is [phone] et ask for Lucrecia Jackson. [facility] supervisor bindery if needed is Mansi and goes by Sydney.
[2018-10-17] MEDS ORDERED: [UNRECOGNIZED DRUG - OTHER] IV SCH ×12 (17:00)
[2018-10-17] MEDS ORDERED: POTASSIUM CHLORIDE IV SCH ×12 (17:00)
[2018-10-17] MEDS ORDERED: SODIUM CHLORIDE IV SCH ×12 (17:00)
== END 2018-10-17 13:25 | disposition swing bed (61) | DRG 871 ==
LOC: ER 10:41 → EDUNIT# 10:41 → ICU 15:19 → 4TH 10-12 09:33
PROVIDERS: ADMIT Internal Medicine; ATTEND Family Medicine
PROC: 02HV33Z Insertion of Infusion Device into Superior Vena Cava, Percutaneous Approach (ICD-10-PCS; principal; 2018-10-08)
PROC: 02HV33Z Insertion of Infusion Device into Superior Vena Cava, Percutaneous Approach (ICD-10-PCS; 2018-10-15)
DX: B37.7 Candidal sepsis (principal); R65.21 Severe sepsis with septic shock; K63.2 Fistula of intestine; K43.2 Incisional hernia without obstruction or gangrene; T80.218A Other infection due to central venous catheter, initial encounter; E87.2 Acidosis; N39.0 Urinary tract infection, site not specified; B95.2 Enterococcus as the cause of diseases classified elsewhere; K91.840 Postprocedural hemorrhage of a digestive system organ or structure following a digestive system procedure; E46 Unspecified protein-calorie malnutrition; J81.1 Chronic pulmonary edema; I10 Essential (primary) hypertension; B96.5 Pseudomonas (aeruginosa) (mallei) (pseudomallei) as the cause of diseases classified elsewhere; F41.9 Anxiety disorder, unspecified; F32.9 Major depressive disorder, single episode, unspecified; R53.1 Weakness; E03.9 Hypothyroidism, unspecified; N28.9 Disorder of kidney and ureter, unspecified; K75.9 Inflammatory liver disease, unspecified; M19.91 Primary osteoarthritis, unspecified site; E83.42 Hypomagnesemia; E87.70 Fluid overload, unspecified
CPT/HCPCS: 36415; 36556; 71045; 74176; 80048; 80053; 80202; 81000; 82805; 82962; 83605; 83735; 83880; 84100; 84134; 84478; 85007; 85025; 85027; 85610; 85730; 86141; 86850; 86900; 86901; 86920; 87040; 87070; 87077; 87081; 87088; 87106; 87186; 87205; 94640; 94760; 96361; 96365; 96367; 96375

== ENCOUNTER 2018-10-17 11:38 | Inpatient (IN) | payer MEDICARE ==
[~2018-10-17] VITALS: Ht 160 cm; Wt 111.9 kg
[~2018-10-17 11:38] MED LIST changes: +ACET-93 PO
--- NOTE | 2018-10-17 13:25 | NUR ---
ADMITTED TO [facility] STATUS. ASSESSMENT DONE ON ACUTE RECORD.
[2018-10-17] MEDS ORDERED: ONDANSETRON 4 MG/2 ML (SDV) Z0FRAN IV PRN (13:30)
[2018-10-17] MEDS ORDERED: ANIDULAFUNGIN INJECTION 100 MG in NS (IVPB) 100 ML IV SCH ×2 (13:30→15:00)
[2018-10-17] MEDS ORDERED: RT-ALBUTEROL/IPRATROPIUM 3 ML (DUONEB) VIAL INH PRN (13:30)
--- NOTE | 2018-10-17 14:58 | Physical Therapy Evaluation ---
PT Evaluation-General Medical Diagnosis Admission Date Oct 17, 2018 at 13:30 Medical Diagnosis: septic shock/UTI/abdominal wound hemorrhage Onset Date: Oct 08, 2018 Therapy Diagnosis Therapy Diagnosis: debility Height/Weight Height (Feet): 5 Height (Inches): 3.00 Weight (Pounds): 282 Weight (Ounces): 9.0 Precautions Precautions/Isolations: Fall Prevention, Standard Precautions Weight Bear Status Right Lower Extremity: Right Full Weight Bearing Left Lower Extremity: Left Weight Bearing/Tolerated Referral Physician: Funmi Reason for Referral: Evaluation/Treatment Medical History Pertinent Medical History: Arthritis, DM, HTN, Hypothroidism Current History transfer to [facility] status Reviewed History: Yes Social History Home: Single Level Current Living Status: Spouse Prior/Core FIM Prior Level of Function Therapy Code Descriptions/Definitions Functional [place] Measure: 0=Not Assessed/NA 4=Minimal Assistance 1=Total Assistance 5=Supervision or Setup 2=Maximal Assistance 6=Modified [place] 3=Moderate Assistance 7=Complete [place] Therapy Quality Codes: 6 Independent with activity with or without an assistive device 5 Patient requires set up or clean up by helper. Patient completes activity by themselves 4 Supervision or touching assist (CGA). [place] provide cues , steadying assist 3 The helper provides less than half the effort to complete the activity 2 The helper provides more than half the effort to complete the activity 1 Dependent. The helper does all the effort to complete an activity 7 Patient refused to complete or attempt activity 9 The patient did not perform the activity before the current illness or injury 88 Not attempted due to Medical conditions or safety concerns Functional Abilities and Goals: Independent: Patient completed the activities by him/herself, with or without an assistive device, with no assistance from a helper. Needed Some Help: Patient needed partial assistance from another person to complete activities. Dependent: A helper completed the activities for the patient. Unknown: Not Applicable: Bed Mobility: 6 Transfers (B,C,W/C) (FIM): 6 Gait: 6 Indoor Mobility (Ambulation): Independent Prior Devices Use: Walker PT Evaluation-Current Subjective Patient agrees to PT. Objective Patient Orientation: Normal For Age Problem Solving: Good Attachments: Drains, Ureña Catheter ROM/Strength ROM Lower Extremities bilateral LE WFL/very edematous Strenght Lower Extremities 4/5 grossly bilaterally Integumentary/Posture Integumentary refer to nursing notes Bladder Incontinence: Ureña Cath Posture trunk flexed posture Neuromuscular (Tone, Coordination, Reflexes) grossly intact Sensory Vision: Functional Hearing: Functional Sensation Right Lower Extremit: Impaired Sensation Left Lower Extremity: Impaired Transfers Therapy Code Descriptions/Definitions Functional [place] Measure: 0=Not Assessed/NA 4=Minimal Assistance 1=Total Assistance 5=Supervision or Setup 2=Maximal Assistance 6=Modified [place] 3=Moderate Assistance 7=Complete [place] Therapy Quality Codes: 6 Independent with activity with or without an assistive device 5 Patient requires set up or clean up by helper. Patient completes activity by themselves 4 Supervision or touching assist (CGA). [place] provide cues , steadying assist 3 The helper provides less than half the effort to complete the activity 2 The helper provides more than half the effort to complete the activity 1 Dependent. The helper does all the effort to complete an activity 7 Patient refused to complete or attempt activity 9 The patient did not perform the activity before the current illness or injury 88 Not attempted due to Medical conditions or safety concerns Transfers (B, C, W/C) (FIM): 6 Scootin Sit to/from Stand: 6 Sit to Stand (QC): 6 patient does not sleep in bed and refused to perform bed activity Gait Does the Patient Walk?: Yes Mode of Locomotion: Walk Anticipated Mode of Locomotion: Walk Gait (FIM): 2 Distance (FIM): 0=536-65 ft Walk 10 feet (QC): 5 Walk 50 ft with 2 Turns(QC): 5 Distance: 125' Gait Level of Assist: 5 Gait Assistive Device: FWW Comments/Gait Description WBOS/functional gait sequence Balance Sitting Static: Normal Sitting Dynamic: Normal Standing Static: Normal Standing Dynamic: Normal Treatment bilateral LE exercises in sit 15 reps LAQ and AP/standing marching 15 reps x 3 sets/ambulation in room 125' with FWW SBA Assessment/Needs 63 y.o. female, will benefit from skilled PT to address functional strength and mobility to improve current LOF to safely return to home at maximum LOF. Rehab Potential: Fair PT Supervisor [employer] Goals Supervisor [employer] Goals PT Supervisor [employer] Goals Time Frame: Nov 16, 2018 Transfers (B,C,W/C) (FIM): 6 Sit to Lying (QC): 6 Lying-Sitting on Side/Bed(QC): 6 Sit to Stand (QC): 6 Rollin Roll Left to Right (QC): 6 Chair/[id number] Xfer(QC): 6 Car Transfer (QC): 6 Does the Patient Walk: Yes Gait (FIM): 6 Gait distance (FIM): 3=150 ft Distance: 200' Walk 10 feet (QC): 6 Walk 10ft-Uneven Surface(QC): 6 Walk 50ft with 2 Turns (QC): 6 Walk 150 ft (QC): 6 Gait Level of Assist: 6 Gait Assistive Device: FWW PT Plan Problem List Problem List: Activity Tolerance, Functional Strength, Safety, Balance, Gait, Transfer, Bed Mobility Treatment/Plan Treatment Plan: Continue Plan of Care Treatment Plan: Bed Mobility, Education, Functional Activity Marcelina, Functional Strength, Gait, Safety, Therapeutic Exercise, Transfers Treatment Duration: Nov 16, 2018 Frequency: 6 times per week Estimated Hrs Per Day: .25 hour per day Patient and/or Family Agrees t: Yes Time/GCodes Time In: 1420 Time Out: 1443 Total Billed Treatment Time: 23 Total Billed Treatment 1 visit EVLowC 8 min FA 15 min PRIMO JOSE PT Oct 17, 2018 14:58
[2018-10-17] MEDS ORDERED: CATHETER FLUSH 10 ML SYR IV PRN (15:00)
--- NOTE | 2018-10-17 15:39 | NUR ---
Swing bed note: Request for swing bed submitted to patient's [employer] insurance [employer] for authorization/denial. Patient has been authorized by [employer] [facility] for swing bed admission for today for continued need of IV Nutrition, IV abx, Wound Care (fistula), with PT and OT for continued strengthening. Auth number [id number] for 3 days. Patient will need updated clinical information sent to [employer] [facility] on Sunday10/21/18 for request for continued authorization. and f/u phone number for any questions is [phone] et ask for Lucrecia Jackson. [facility] supervisor cured meats if needed is Mansi and goes by Sydney.
--- NOTE | 2018-10-17 15:40 | NUR ---
Admission Drug Regimen Review: Date: 10/17/18 Time: 154 Review Completed, No Issues found
[2018-10-17 16:00] VITALS: BP 163/80
[2018-10-17] MEDS ORDERED: SODIUM CHLORIDE IV SCH ×12 (17:00)
[2018-10-17] MEDS ORDERED: [UNRECOGNIZED DRUG - OTHER] IV SCH ×12 (17:00)
[2018-10-17] MEDS ORDERED: POTASSIUM CHLORIDE IV SCH ×12 (17:00)
[2018-10-17 18:00] VITALS: BP 151/84
[2018-10-17] MEDS: inSUlin ASPART (NovoLOG) 1 UNIT/0.01 ML (CHARGE PER UNIT) SC SCH (18:05)
--- NOTE | 2018-10-17 18:19 | Progress Note ---
Subjective Subjective/Events-last exam Patient feeling well. Able to stand today. NPO. Still having pain in her right leg Review of Systems Date Seen by Provider: Oct 17, 2018 Time Seen by Provider: 10:00 Pulmonary: Cough Cardiovascular: No: Chest Pain, Palpitations Gastrointestinal: No: Nausea, Vomiting Neurological: Weakness Objective Exam Last Set of Vital Signs Vital Signs Date Time Temp Pulse Resp B/P (MAP) Pulse Ox O2 Delivery O2 Flow Rate FiO2 10/17/18 16:00 96.1 67 18 163/80 (107) 96 Nasal Cannula 3.00 Capillary Refill : General: Alert, Oriented X3, Cooperative, No Acute Distress Lungs: Clear to Auscultation, Normal Air Movement Heart: Regular Rate, No Murmurs Abdomen: Other (Large fistula present, moist, drain purulent and fecal material) Extremities: Other (2+ pitting edema) Results/Procedures Lab Laboratory Tests 10/17/18 17:50: Glucometer 163H Assessment/Plan Assessment/Plan (1) Enterocutaneous fistula Status: Chronic Assessment & Plan: - Followed by General surgery, patient NPO and on TPN, picc removed due to yeast infection (2) Sepsis Status: Resolved Qualifiers: Qualified Codes: B37.7 - Candidal sepsis (3) Fluid overload Status: Acute Assessment & Plan: - 2/2 to septic shock, continue diuresis (4) Morbid obesity Status: Chronic Assessment & Plan: - Generalize debility, continue PT/OT (5) Yeast infection Status: Acute (6) Malnutrition Status: Acute Qualifiers: Qualified Codes: E43 - Unspecified severe protein-calorie malnutrition Clinical Quality Measures DVT/VTE Risk/Contraindication: Risk Factor Score Per Nursin ARCHIE ESPINO MD Oct 17, 2018 18:19
[2018-10-17] MEDS: HYDROCORTISONE 100 MG/2 ML (Solu-CORTEF) VIAL IV SCH (18:26)
[2018-10-17 20:34] VITALS: BP 149/83
[2018-10-17] MEDS: CIPROFLOXACIN IV 400MG/200ML 200 ML IV SCH (21:51)
--- NOTE | 2018-10-17 21:58 | Progress Note - Surgery ---
Subjective Date Seen by a Provider: Oct 17, 2018 Time Seen by a Provider: 14:21 Subjective/Events-last exam Patient states she is feeling better. Not having any abdominal pain. Fistula draining as usual. Denies n/v fever sweats chills shortness of breath or chest pain. Objective Exam Vital Signs Date Time Temp Pulse Resp B/P (MAP) Pulse Ox O2 Delivery O2 Flow Rate FiO2 10/17/18 20:34 96.4 55 18 149/83 (105) 90 Nasal Cannula 3.00 10/17/18 18:00 96.4 61 20 151/84 (106) 92 Nasal Cannula 3.00 Capillary Refill : General Appearance: No Apparent Distress HEENT: PERRL/EOMI, Normal ENT Inspection Neck: Non Tender, Supple Respiratory: Chest Non Tender, No Accessory Muscle Use, No Respiratory Distress Cardiovascular: Regular Rate, Rhythm Gastrointestinal: soft, other (large enterocutaneous fistula) Extremity: Swelling Neurologic/Psychiatric: Alert, Oriented x3, station engineer chief II-XII Norm as Tested Skin: Normal Color, Warm/Dry Lymphatic: No Adenopathy Results Lab Laboratory Tests 10/17/18 17:50: Glucometer 163H Assessment/Plan Assessment/Plan Assessment/Plan Sepsis - resolved Candidemia - awaiting final sensitivity Intestinal Bleeding - appears to have stopped Fistula Recurrent Ventral hernia Swelling in legs decreasing per patient. Await all cultures. Continue Cipro to treat Urine and bacteria in abdominal wound. Yeast sensitivity still not back, continue TPN. Maximum medical care. Continue to medically optimize. Clinical Quality Measures DVT/VTE Risk/Contraindication: Risk Factor Score Per Nursin ANGELINA MARQUES DO Oct 17, 2018 21:58
[2018-10-18] VITALS (7 sets, daily range): BP systolic 126–142; BP diastolic 74–84
[2018-10-18] MEDS: inSUlin ASPART (NovoLOG) 1 UNIT/0.01 ML (CHARGE PER UNIT) SC SCH ×4 (00:52→18:15)
[2018-10-18] MEDS: HYDROCORTISONE 100 MG/2 ML (Solu-CORTEF) VIAL IV SCH ×4 (00:52→17:27)
[2018-10-18 07:18] LABS: ALANINE AMINOTRANSFERASE 117 U/L (0-55); ALBUMIN 2.3 GM/DL (3.2-4.5); ALKALINE PHOSPHATASE 84 U/L (40-136); BILIRUBIN,TOTAL 1.5 MG/DL (0.1-1.0); BUN/CREATININE RATIO 36; CALCIUM 8.1 MG/DL (8.5-10.1); CARBON DIOXIDE 31 MMOL/L (21-32); CHLORIDE 100 MMOL/L (98-107); CREATININE SERUM 0.84 MG/DL (0.60-1.30); GFR ESTIMATED > 60; GLUCOSE 210 MG/DL (70-105); PHOSPHORUS 3.4 MG/DL (2.3-4.7); POTASSIUM 3.5 MMOL/L (3.6-5.0); SODIUM 142 MMOL/L (135-145); TOTAL PROTEIN 5.7 GM/DL (6.4-8.2)
[2018-10-18] MEDS: CIPROFLOXACIN IV 400MG/200ML 200 ML IV SCH ×2 (08:03→21:06)
[2018-10-18] MEDS: PANTOPRAZOLE 40 MG (PROTONIX) VIAL IV SCH (08:03)
[2018-10-18] MEDS: POTASSIUM CL 10MEQ/50ML IVPB 50 ML IV SCH ×4 (08:11→11:04)
--- NOTE | 2018-10-18 09:23 | Occupational Therapy Eval ---
OT Evaluation-General/PLF Medical Diagnosis Admission Date Oct 17, 2018 at 13:30 Medical Diagnosis: septic shock/UTI/abdominal wound hemorrhage Onset Date: Oct 08, 2018 Therapy Diagnosis Therapy Diagnosis: impaired ADLs and mobility Height/Weight Height (Feet): 5 Height (Inches): 3.00 Weight (Pounds): 270 Weight (Ounces): 12.8 Precautions Precautions/Isolations: Contact Isolation, Fall Prevention Safety Interventions: None Weight Bear Status Weight Bearing Restriction: Weight Bearing/Tolerated Referral Physician: Funmi Referral Reason: Activity Tolerance, Self Care, Evaluation/Treatment, Strengthening/ROM Medical History Pertinent Medical History: Arthritis, DM, HTN, Hypothroidism Current History pt transfer to [facility] bed status for continue therapy and medical management. 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 Patient completes activity by themselves 4 Supervision or touching assist (CGA). [place] provide cues , steadying assist 3 The helper provides less than half the effort to complete the activity 2 The helper provides more than half the effort to complete the activity 1 Dependent. The helper does all the effort to complete an activity 7 Patient refused to complete or attempt activity 9 The patient did not perform the activity before the current illness or injury 88 Not attempted due to Medical conditions or safety concerns Functional Abilities and Goals: Independent: Patient completed the activities by him/herself, with or without an assistive device, with no assistance from a helper. Needed Some Help: Patient needed partial assistance from another person to complete activities. Dependent: A helper completed the activities for the patient. Unknown: Not Applicable: ADL PLOF Comments pt reports indep PLOF with ADLs and functional transfers with use of a FRW Self Care: Independent Functional Cognition: Independent DME/Equipment: Shower, Tub/Shower Drive Self: Yes OT Current Status Subjective t sitting in recliner chair upon OT arrival. pt agreed to OT evaluation session/ treatment session. Pain Numeric Pain Scale: 0-No Pain Mental Status/Objective Patient Orientation: Person, Place, Time, Situation Attachments: Colostomy/Ileostomy, Ureña Catheter, IV, Oxygen (2L NC pt reports she did not wear O2 at home ), Other-See Comments (abd wound ) Current Glasses/Contacts: Yes Hearing Aids: No Dentures/Partials: No Hand Dominance: Right Upper Extremity ROM WFL Upper Extremity Coordination finger to nose test WFL opposition WFL Upper Extremity Sensation WFL Ya UE Upper Extremity Strength 3+/5 MMT Edema: ya LE increase edema ADL-Treatment Grooming (FIM): 4 (brush hair, wash face, brush teeth. CGA jwhile standing. pt dem ability to stand for 30 seconds prior to sitting to finish tasks. ) Oral Hygiene (QC): 3 Bathing (FIM): 3 Bathing Location: L Arm, R Arm, Chest, Abdomen Shower/Bathe Self (QC): 2 Upper Body Dressing (FIM): 2 (required assist to apply jacket ) Upper Body Dressing (QC): 1 Lower Body Dressing (FIM): 1 (reuqired TA for Ya socks. ) Lower Body Dressing (QC): 1 On/Off Footwear (QC): 1 Toileting (FIM): 1 (reuqired gaurav too perofrm 3/3 tielting tasks ) Toileting Hygiene (QC): 1 Transfers (B, C, W/C) (FIM): 4 (CGA for safety/ balacne ) Toilet/Commode Transfer (FIM): 4 (CGA for safety/ balance use of RW ) Toilet Transfer (QC): 4 pt education on finger four positioning for LB dressing. pt attempt to demo to limited secondary to increase LE edema. pt education on standing to wash buttock/ cara. pt demo understanding correctly. pt sitting in recliner chair, post OT Session, call light within reach, all needs met. Education OT Patient Education: Energy conservation, Modified ADL techniques, Progress toward Goal/Update tx plan, Purpose of tx/functional activities, Transfer techniques, Use of adapted equipment Teaching Recipient: Patient Teaching Methods: Demonstration, Discussion Response to Teaching: Verbalize Understanding, Return Demonstration OT Short Term Goals Short Term Goals Time Frame: Nov 01, 2018 Grooming(FIM): 5 Bathing(FIM): 5 Upper Body Dressing(FIM): 5 Lower Body Dressing(FIM): 5 Toileting(FIM): 5 Transfers (B,C,W/C) (FIM): 5 Toilet/Commode Transfer(FIM): 5 Shower Transfer(FIM): 5 1=Demonstrate adherence to instructed precautions during ADL tasks. 2=Patient will verbalize/demonstrate understanding of assistive devices/modifications for ADL. 3=Patient will improve strength/tolerance for activity to enable patient to perform ADL's. OT Mcc Goals Chief Deputy Clerk/Bailiff Goals Time Frame: Nov 15, 2018 Eating (FIM): 7 Eating (QC): 6 Groomin Oral Hygiene (QC): 6 Bathing(FIM): 6 Bathing Location: L Arm, R Arm, L Upper Leg, R Upper Leg, L Lower Leg (including foot), R Lower Leg (including foot), Chest, Abdomen, Buttocks, Pe rineal Area Shower/Bathe Self (QC): 6 Upper Body Dressing(FIM): 6 Upper Body Dressing (QC): 6 Lower Body Dressing(FIM): 6 Lower Body Dressing (QC): 6 On/Off Footwear (QC): 6 Toileting(FIM): 6 Toileting Hygiene (QC): 6 Transfers (B,C,W/C) (FIM): 6 Toilet/Commode Transfer(FIM): 6 Toilet/Commode Transfer (QC): 6 Shower Transfer(FIM): 6 Additional Goals: 1-Demonstrate ADL Tasks, 2-Verbalize Understanding, 3- ImproveStrength/Marcelina 1=Demonstrate adherence to instructed precautions during ADL tasks. 2=Patient will verbalize/demonstrate understanding of assistive devices/modifications for ADL. 3=Patient will improve strength/tolerance for activity to enable patient to perform ADL's. OT Education/Plan Problem List/Assessment Assessment: Decreased Activ Tolerance, Decreased Safety Aware, Impaired Funct Balance, Impaired I ADL's, Impaired Self-Care Skills pt presents with functional limitations affecting areas of ADLs and functional transfers. pt would benefit from OT services to increase independence with ADLS and functional transfers. Discharge Recommendations Plan/Recommendations: Continue POC Barriers to Progress edema Target Placement home with family support Treatment Plan/Plan of Care Patient would benefit from OT for education, treatment and training to promote independence in ADL's, mobility, safety and/or upper extremity function for ADL's. Treatment Duration: Nov 15, 2018 Frequency: 5 times per week Estimated Hrs Per Day: .25 hour per day (-0.50) Rehab Potential: Fair Time/GCodes Start Time: 09:10 Stop Time: :45 Billed Treatment Time EVM 10 minutes ADL 25 minutes, 2 units JOSSE SANCHEZ OT Oct 18, 2018 09:23
--- NOTE | 2018-10-18 11:15 | Physical Therapy Daily Note ---
PT Daily Note-Current Subjective Patient agrees to PT. She reports she is feeling much better on this date. Pain Numeric Pain Scale: 5-Moderate Pain Location: Medial, Lower Location Body Site: Abdomen Mental Status Patient Orientation: Normal For Age Attachments: Drains, Ureña Catheter, IV Transfers Therapy Code Descriptions/Definitions Functional [place] Measure: 0=Not Assessed/NA 4=Minimal Assistance 1=Total Assistance 5=Supervision or Setup 2=Maximal Assistance 6=Modified [place] 3=Moderate Assistance 7=Complete [place] Therapy Quality Codes: 6 Independent with activity with or without an assistive device 5 Patient requires set up or clean up by helper. Patient completes activity by themselves 4 Supervision or touching assist (CGA). Mobile provide cues , steadying assist 3 The helper provides less than half the effort to complete the activity 2 The helper provides more than half the effort to complete the activity 1 Dependent. The helper does all the effort to complete an activity 7 Patient refused to complete or attempt activity 9 The patient did not perform the activity before the current illness or injury 88 Not attempted due to Medical conditions or safety concerns Transfers (B, C, W/C) (FIM): 6 Scootin Sit to/from Stand: 6 Sit to Stand (QC): 6 Weight Bearing Right Lower Extremity: Right Full Weight Bearing Left Lower Extremity: Left Weight Bearing/Tolerated Gait Training Does the Patient Walk?: Yes Gait (FIM): 2 Distance (FIM): 5=777-73 ft Distance: 125' Walk 10 feet (QC): 6 Walk 50 ft with 2 Turns(QC): 6 Gait Level of Assist: 6 Gait Assistive Device: FWW slow, steady, functional Exercises Seated Therapy Exercises: Ankle pumps, Long arc quads, Hip flexion Seated Reps: 15 (2 sets bilaterally) Assessment Patient tolerated treatment well and is highly motivated with progress. PT to increase activity as tolerated by patient. PT Short Term Goals Short Term Goals Transfers (B,C,W/C) (FIM): 5 PT Senior Living Goals Senior Living Goals PT Machine Overhauler Goals Time Frame: Nov 16, 2018 Transfers (B,C,W/C) (FIM): 6 Sit to Lying (QC): 6 Lying-Sitting on Side/Bed(QC): 6 Sit to Stand (QC): 6 Rollin Roll Left to Right (QC): 6 Chair/Kyv-nn-Ncrwx Xfer(QC): 6 Car Transfer (QC): 6 Does the Patient Walk: Yes Gait (FIM): 6 Gait distance (FIM): 3=150 ft Distance: 200' Walk 10 feet (QC): 6 Walk 10ft-Uneven Surface(QC): 6 Walk 50ft with 2 Turns (QC): 6 Walk 150 ft (QC): 6 Gait Level of Assist: 6 Gait Assistive Device: FWW PT Plan Treatment/Plan Treatment Plan: Continue Plan of Care Treatment Plan: Bed Mobility, Education, Functional Activity Marcelina, Functional Strength, Gait, Safety, Therapeutic Exercise, Transfers Treatment Duration: Nov 16, 2018 Frequency: 6 times per week Estimated Hrs Per Day: .25 hour per day Patient and/or Family Agrees t: Yes Time/GCodes Time In: 1045 Time Out: 1101 Total Billed Treatment Time: 16 Total Billed Treatment 1 visit FA 16 min PRIMO JOSE PT Oct 18, 2018 11:15
[2018-10-18] MEDS ORDERED: FUROSEMIDE 40 MG/4 ML INJ (LASIX) IVP NR (11:45)
--- NOTE | 2018-10-18 12:07 | Progress Note ---
Subjective Subjective/Events-last exam Patient doing well today. Has been up with PT. NPO. Good spirits today. Review of Systems Date Seen by Provider: Oct 18, 2018 Time Seen by Provider: 11:15 Pulmonary: Cough Gastrointestinal: No: Nausea, Vomiting, Abdominal Pain Neurological: Weakness, Incoordination Objective Exam Last Set of Vital Signs Vital Signs Date Time Temp Pulse Resp B/P (MAP) Pulse Ox O2 Delivery O2 Flow Rate FiO2 10/18/18 09:00 Nasal Cannula 10/18/18 08:00 97.8 43 18 135/74 (94) 92 3.00 Capillary Refill : I&O Intake and Output 10/18/18 00:00 Intake Total 130 ml Output Total 2600 ml Balance -2470 ml Intake Oral 0 ml IV Total 130 ml Output Urine Total 2525 ml Other 75 ml Daily Weight Change Unsure Unsure General: Alert, Oriented X3, Cooperative, No Acute Distress HEENT: Mucous Memb Moist/[place] Lungs: Clear to Auscultation, Normal Air Movement Heart: Regular Rate, No Murmurs Extremities: Other (2+ Pitting edema bilaterally) Neuro: Normal Speech, Sensation Intact, Cranial Nerves 3-12 NL Psych/Mental Status: Mood NL Results/Procedures Lab Laboratory Tests 10/17/18 17:50: Glucometer 163H 10/18/18 00:30: Glucometer 211H 10/18/18 05:46: Glucometer 191H 10/18/18 06:30: Sodium Level 142, Potassium Level 3.5L, Chloride Level 100, Carbon Dioxide Level 31, Anion Gap 11, Blood Urea Nitrogen 30H, Creatinine 0.84, Estimat Glomerular Filtration Rate > 60, BUN/Creatinine Ratio 36, Glucose Level 210H, Calcium Level 8.1L, Corrected Calcium 9.5, Phosphorus Level 3.4, Magnesium Level 3.0H, Total Bilirubin 1.5H, Aspartate Amino Transf (AST/SGOT) 102H, Alanine Aminotransferase (ALT/SGPT) 117H, Alkaline Phosphatase 84, Total Protein 5.7L, Albumin 2.3L 10/18/18 11:20: Glucometer 163H Assessment/Plan Assessment/Plan (1) Enterocutaneous fistula Status: Chronic Assessment & Plan: - Followed by General surgery, patient NPO and on TPN, picc removed due to yeast infection 10/18: Eraxis changed to Fluconazole today, Complete 14 day course (Eraxis started on 10/08) (2) Sepsis Status: Resolved Qualifiers: Qualified Codes: B37.7 - Candidal sepsis (3) Fluid overload Status: Acute Assessment & Plan: - 05/11 to septic shock, continue diuresis 10/18: Plan on dose of lasix tomorrow (4) Morbid obesity Status: Chronic Assessment & Plan: - Generalize debility, continue PT/OT (5) Yeast infection Status: Acute (6) Malnutrition Status: Acute Assessment & Plan: - Patient on TPN Qualifiers: Qualified Codes: E43 - Unspecified severe protein-calorie malnutrition Clinical Quality Measures DVT/VTE Risk/Contraindication: Risk Factor Score Per Nursin ARCHIE ESPINO MD Oct 18, 2018 12:07
[2018-10-18] MEDS: FLUCONAZOLE 200 MG/100 ML 100 ML IV SCH (12:23)
--- NOTE | 2018-10-18 15:21 | Progress Note - Surgery ---
Subjective Date Seen by a Provider: Oct 18, 2018 Time Seen by a Provider: 08:40 Subjective/Events-last exam patient states she's doing well. Patient wanting to take a shower. Patient with no new complaints. Denies any nausea vomiting fever sweats chills shortness of breath or chest pain. Patient switched to fluconazole, for yeast no family in the room. Objective Exam Vital Signs Date Time Temp Pulse Resp B/P (MAP) Pulse Ox O2 Delivery O2 Flow Rate FiO2 10/18/18 12:00 98.4 53 18 142/83 (102) 91 Nasal Cannula 3.00 10/18/18 09:00 Nasal Cannula 10/18/18 08:00 97.8 43 18 135/74 (94) 92 Nasal Cannula 3.00 10/18/18 04:00 97.0 50 16 133/81 (98) 91 Nasal Cannula 3.00 10/18/18 00:00 96.6 54 20 126/79 (95) 91 Nasal Cannula 3.00 10/17/18 20:34 96.4 55 18 149/83 (105) 90 Nasal Cannula 3.00 10/17/18 20:00 Nasal Cannula 10/17/18 18:00 96.4 61 20 151/84 (106) 92 Nasal Cannula 3.00 I & O 10/18/18 07:00 Intake Total 130 ml Output Total 2950 ml Balance -2820 ml Capillary Refill : General Appearance: No Apparent Distress HEENT: PERRL/EOMI, Normal ENT Inspection Neck: Non Tender, Supple Respiratory: Chest Non Tender, No Accessory Muscle Use, No Respiratory Distress Cardiovascular: Regular Rate, Rhythm Gastrointestinal: non tender, soft, other (large enterocutaneous fistula) Extremity: Non Tender, Swelling Neurologic/Psychiatric: Alert, Oriented x3, paraffiner II-XII Norm as Tested Skin: Normal Color, Warm/Dry Lymphatic: No Adenopathy Results Lab Laboratory Tests 10/17/18 17:50: Glucometer 163H 10/18/18 00:30: Glucometer 211H 10/18/18 05:46: Glucometer 191H 10/18/18 06:30: Sodium Level 142, Potassium Level 3.5L, Chloride Level 100, Carbon Dioxide Level 31, Anion Gap 11, Blood Urea Nitrogen 30H, Creatinine 0.84, Estimat Glomerular Filtration Rate > 60, BUN/Creatinine Ratio 36, Glucose Level 210H, Calcium Level 8.1L, Corrected Calcium 9.5, Phosphorus Level 3.4, Magnesium Level 3.0H, Total Bilirubin 1.5H, Aspartate Amino Transf (AST/SGOT) 102H, Alanine Aminotransferase (ALT/SGPT) 117H, Alkaline Phosphatase 84, Total Protein 5.7L, Albumin 2.3L 10/18/18 11:20: Glucometer 163H Assessment/Plan Assessment/Plan Assessment/Plan Sepsis - resolved Candidemia - switched to fluconazole today Intestinal Bleeding - appears to have stopped Fistula Recurrent Ventral hernia Continue to medically optimize. no other changes currently. May shower Clinical Quality Measures DVT/VTE Risk/Contraindication: Risk Factor Score Per Nursin ANGELINA MARQUES DO Oct 18, 2018 15:21
--- NOTE | 2018-10-18 15:31 | NUR ---
Received a phone call from [employer]. Chris is the post acute care clinical reviewer his fax number is [phone] and his phone number is [phone] extension [phone]. This information will need to be faxed on Sunday for request for continued auth. Chris should fax you the information he wants us to send.
[2018-10-18] MEDS ORDERED: SODIUM CHLORIDE IV SCH ×12 (17:00)
[2018-10-18] MEDS ORDERED: [UNRECOGNIZED DRUG - OTHER] IV SCH ×12 (17:00)
[2018-10-18] MEDS ORDERED: POTASSIUM CHLORIDE IV SCH ×12 (17:00)
[2018-10-19] MEDS: inSUlin ASPART (NovoLOG) 1 UNIT/0.01 ML (CHARGE PER UNIT) SC SCH ×5 (01:01→23:58)
[2018-10-19] MEDS: HYDROCORTISONE 100 MG/2 ML (Solu-CORTEF) VIAL IV SCH ×5 (01:01→23:58)
[2018-10-19 05:35] LABS: BUN/CREATININE RATIO 35; CALCIUM 8.2 MG/DL (8.5-10.1); CARBON DIOXIDE 31 MMOL/L (21-32); CHLORIDE 102 MMOL/L (98-107); CREATININE SERUM 0.81 MG/DL (0.60-1.30); GFR ESTIMATED > 60; GLUCOSE 190 MG/DL (70-105); MAGNESIUM 2.3 MG/DL (1.8-2.4); PHOSPHORUS 3.3 MG/DL (2.3-4.7); POTASSIUM 3.8 MMOL/L (3.6-5.0); SODIUM 142 MMOL/L (135-145)
[2018-10-19] MEDS: PANTOPRAZOLE 40 MG (PROTONIX) VIAL IV SCH (08:34)
[2018-10-19] MEDS: CIPROFLOXACIN IV 400MG/200ML 200 ML IV SCH ×2 (08:34→20:39)
--- NOTE | 2018-10-19 09:14 | Physical Therapy Daily Note ---
PT Daily Note-Current Subjective Patient agrees to PT. Mental Status Patient Orientation: Normal For Age Attachments: Oxygen, Drains, Ureña Catheter, IV Transfers Therapy Code Descriptions/Definitions Functional [place] Measure: 0=Not Assessed/NA 4=Minimal Assistance 1=Total Assistance 5=Supervision or Setup 2=Maximal Assistance 6=Modified [place] 3=Moderate Assistance 7=Complete [place] Therapy Quality Codes: 6 Independent with activity with or without an assistive device 5 Patient requires set up or clean up by helper. Patient completes activity by themselves 4 Supervision or touching assist (CGA). [place] provide cues , steadying assist 3 The helper provides less than half the effort to complete the activity 2 The helper provides more than half the effort to complete the activity 1 Dependent. The helper does all the effort to complete an activity 7 Patient refused to complete or attempt activity 9 The patient did not perform the activity before the current illness or injury 88 Not attempted due to Medical conditions or safety concerns Transfers (B, C, W/C) (FIM): 6 Sit to/from Stand: 6 Sit to Stand (QC): 6 Weight Bearing Right Lower Extremity: Right Full Weight Bearing Left Lower Extremity: Left Weight Bearing/Tolerated Gait Training Does the Patient Walk?: Yes Gait (FIM): 2 Distance (FIM): 6=276-37 ft Distance: 45' Walk 10 feet (QC): 5 Gait Level of Assist: 5 Gait Assistive Device: FWW Assessment patient fistula bag began to leak requiring RN to address situation. PT to increase activity as tolerated. PT Short Term Goals Short Term Goals Transfers (B,C,W/C) (FIM): 5 PT Correction Goals Scratch Brusher Goals PT Correction Goals Time Frame: Nov 16, 2018 Transfers (B,C,W/C) (FIM): 6 Sit to Lying (QC): 6 Lying-Sitting on Side/Bed(QC): 6 Sit to Stand (QC): 6 Rollin Roll Left to Right (QC): 6 Chair/Pnu-dc-Qpczc Xfer(QC): 6 Car Transfer (QC): 6 Does the Patient Walk: Yes Gait (FIM): 6 Gait distance (FIM): 3=150 ft Distance: 200' Walk 10 feet (QC): 6 Walk 10ft-Uneven Surface(QC): 6 Walk 50ft with 2 Turns (QC): 6 Walk 150 ft (QC): 6 Gait Level of Assist: 6 Gait Assistive Device: FWW PT Plan Treatment/Plan Treatment Plan: Continue Plan of Care Treatment Plan: Bed Mobility, Education, Functional Activity Marcelina, Functional Strength, Gait, Safety, Therapeutic Exercise, Transfers Treatment Duration: Nov 16, 2018 Frequency: 6 times per week Estimated Hrs Per Day: .25 hour per day Patient and/or Family Agrees t: Yes Time/GCodes Time In: 830 Time Out: 845 Total Billed Treatment Time: 15 Total Billed Treatment 1 visit FA 15 min PRIMO JOSE PT Oct 19, 2018 09:14
[2018-10-19] MEDS: FLUCONAZOLE 200 MG/100 ML 100 ML IV SCH (12:50)
[2018-10-19] MEDS ORDERED: SODIUM CHLORIDE IV SCH ×12 (17:00)
[2018-10-19] MEDS ORDERED: [UNRECOGNIZED DRUG - OTHER] IV SCH ×12 (17:00)
[2018-10-19] MEDS ORDERED: POTASSIUM CHLORIDE IV SCH ×12 (17:00)
[2018-10-19 20:00] VITALS: BP 145/86
[2018-10-20] MEDS: HYDROCORTISONE 100 MG/2 ML (Solu-CORTEF) VIAL IV SCH ×4 (05:57→23:42)
[2018-10-20] MEDS: inSUlin ASPART (NovoLOG) 1 UNIT/0.01 ML (CHARGE PER UNIT) SC SCH ×4 (05:58→23:42)
[2018-10-20 06:25] LABS: BUN/CREATININE RATIO 37; CARBON DIOXIDE 27 MMOL/L (21-32); CHLORIDE 103 MMOL/L (98-107); CREATININE SERUM 0.78 MG/DL (0.60-1.30); GFR ESTIMATED > 60; GLUCOSE 214 MG/DL (70-105); MAGNESIUM 2.3 MG/DL (1.8-2.4); PHOSPHORUS 3.2 MG/DL (2.3-4.7); POTASSIUM 3.9 MMOL/L (3.6-5.0); SODIUM 140 MMOL/L (135-145)
[2018-10-20 08:00] VITALS: BP 151/84
[2018-10-20] MEDS: PANTOPRAZOLE 40 MG (PROTONIX) VIAL IV SCH (08:02)
[2018-10-20] MEDS: CIPROFLOXACIN IV 400MG/200ML 200 ML IV SCH ×2 (08:02→22:38)
--- NOTE | 2018-10-20 09:58 | Progress Note ---
Subjective Subjective/Events-last exam Patient doing well today. States that she has been up walking. She is feeling stronger and is breathing better Review of Systems Date Seen by Provider: Oct 20, 2018 Time Seen by Provider: 08:00 Pulmonary: Dyspnea, Cough Cardiovascular: No: Chest Pain, Palpitations, Orthopnea Gastrointestinal: Abdominal Pain; No: Nausea, Vomiting Neurological: Weakness, Incoordination Objective Exam Last Set of Vital Signs Vital Signs Date Time Temp Pulse Resp B/P (MAP) Pulse Ox O2 Delivery O2 Flow Rate FiO2 10/20/18 08:00 97.4 3 20 151/84 (106) 92 Nasal Cannula 3.00 Capillary Refill : I&O Intake and Output 10/20/18 00:00 Intake Total 3400 ml Output Total 1700 ml Balance 1700 ml Intake Oral 0 ml IV Total 3400 ml Output Urine Total 1600 ml Drainage Total 100 ml General: Alert, Oriented X3, Cooperative, No Acute Distress Lungs: Clear to Auscultation, Normal Air Movement Heart: Regular Rate, No Murmurs Extremities: Other (2+Pitting edema bilaterally LE) Results/Procedures Lab Laboratory Tests 10/19/18 11:43: Glucometer 165H 10/19/18 17:52: Glucometer 148H 10/19/18 23:36: Glucometer 195H 10/20/18 05:34: Glucometer 235H 10/20/18 06:00: Sodium Level 140, Potassium Level 3.9, Chloride Level 103, Carbon Dioxide Level 27, Anion Gap 10, Blood Urea Nitrogen 29H, Creatinine 0.78, Estimat Glomerular Filtration Rate > 60, BUN/Creatinine Ratio 37, Glucose Level 214H, Calcium Level 8.0L, Phosphorus Level 3.2, Magnesium Level 2.3 Assessment/Plan Assessment/Plan (1) Enterocutaneous fistula Status: Chronic Assessment & Plan: - Followed by General surgery, patient NPO and on TPN, picc removed due to yeast infection 10/18: Eraxis changed to Fluconazole today, Complete 14 day course (Eraxis started on 10/08) 10/20: Plan for Picc replacement next week, Treatment will be complete on 10/22 (2) Sepsis Status: Resolved Qualifiers: Qualified Codes: B37.7 - Candidal sepsis (3) Fluid overload Status: Acute Assessment & Plan: - 2/2 to septic shock, continue diuresis 10/18: Plan on dose of lasix tomorrow (4) Morbid obesity Status: Chronic Assessment & Plan: - Generalize debility, continue PT/OT (5) Yeast infection Status: Acute (6) Malnutrition Status: Acute Assessment & Plan: - Patient on TPN Qualifiers: Qualified Codes: E43 - Unspecified severe protein-calorie malnutrition Clinical Quality Measures DVT/VTE Risk/Contraindication: Risk Factor Score Per Nursin ARCHIE ESPINO MD Oct 20, 2018 09:58
[2018-10-20] MEDS: FLUCONAZOLE 200 MG/100 ML 100 ML IV SCH (13:00)
[2018-10-20] MEDS: [UNRECOGNIZED DRUG - OTHER] IV SCH ×12 (17:00)
[2018-10-20] MEDS: SODIUM CHLORIDE IV SCH ×12 (17:00)
[2018-10-20] MEDS: POTASSIUM CHLORIDE IV SCH ×12 (17:00)
--- NOTE | 2018-10-20 17:27 | Progress Note - Surgery ---
Subjective Date Seen by a Provider: Oct 20, 2018 Time Seen by a Provider: 09:04 Subjective/Events-last exam patient sitting in chair. She started to feel stronger. She has no new complaints. She denies any nausea vomiting fever sweats chills shortness of breath or chest pain at this time. Fistula still with output. Patient hoping to get fixed soon Objective Exam Vital Signs Date Time Temp Pulse Resp B/P (MAP) Pulse Ox O2 Delivery O2 Flow Rate FiO2 10/20/18 09:00 92 Nasal Cannula 10/20/18 08:00 97.4 3 20 151/84 (106) 92 Nasal Cannula 3.00 10/19/18 21:15 Nasal Cannula 2.00 10/19/18 20:00 98.0 56 18 145/86 (105) 91 Nasal Cannula 3.00 I & O 10/20/18 07:00 Intake Total 3400 ml Output Total 1800 ml Balance 1600 ml Capillary Refill : General Appearance: No Apparent Distress HEENT: PERRL/EOMI, Normal ENT Inspection Neck: Non Tender, Supple Respiratory: Chest Non Tender, No Accessory Muscle Use, No Respiratory Distress Cardiovascular: Regular Rate, Rhythm Gastrointestinal: non tender, soft, other (large enterocutaneous fistula) Extremity: Non Tender, Swelling Neurologic/Psychiatric: Alert, Oriented x3, bacteriology teacher II-XII Norm as Tested Skin: Normal Color, Warm/Dry Lymphatic: No Adenopathy Results Lab Laboratory Tests 10/19/18 17:52: Glucometer 148H 10/19/18 23:36: Glucometer 195H 10/20/18 05:34: Glucometer 235H 10/20/18 06:00: Sodium Level 140, Potassium Level 3.9, Chloride Level 103, Carbon Dioxide Level 27, Anion Gap 10, Blood Urea Nitrogen 29H, Creatinine 0.78, Estimat Glomerular Filtration Rate > 60, BUN/Creatinine Ratio 37, Glucose Level 214H, Calcium Level 8.0L, Phosphorus Level 3.2, Magnesium Level 2.3 10/20/18 12:13: Glucometer 165H Assessment/Plan Assessment/Plan Assessment/Plan Sepsis - resolved Candidemia - On fluconazole Intestinal Bleeding - appears to have stopped enterocutaneous Fistula Recurrent Ventral hernia Continue to medically optimize. no other changes currently. May shower Clinical Quality Measures DVT/VTE Risk/Contraindication: Risk Factor Score Per Nursin ANGELINA MARQUES DO Oct 20, 2018 17:27
--- NOTE | 2018-10-20 18:00 | NUR ---
TPN INCREASED TO 118ML/HR
[2018-10-20 19:59] VITALS: BP 125/75
[2018-10-20 20:20] VITALS: BP 125/75
[2018-10-21] MEDS: HYDROCORTISONE 100 MG/2 ML (Solu-CORTEF) VIAL IV SCH (06:02)
[2018-10-21] MEDS: inSUlin ASPART (NovoLOG) 1 UNIT/0.01 ML (CHARGE PER UNIT) SC SCH ×3 (06:02→17:54)
[2018-10-21 06:24] LABS: HEMOGLOBIN 11.6 G/DL (11.5-16.0); MEAN PLATELET VOLUME 11.6 FL (7.4-10.4); RED CELL DISTRIBUTION WIDTH 19.4 % (10.0-14.5); WHITE BLOOD COUNT 12.4 10^3/uL (4.3-11.0)
[2018-10-21 06:45] LABS: ALANINE AMINOTRANSFERASE 130 U/L (0-55); ALBUMIN 2.3 GM/DL (3.2-4.5); ALKALINE PHOSPHATASE 89 U/L (40-136); BILIRUBIN,TOTAL 2.1 MG/DL (0.1-1.0); BUN/CREATININE RATIO 35; CALCIUM 8.3 MG/DL (8.5-10.1); CARBON DIOXIDE 28 MMOL/L (21-32); CHLORIDE 105 MMOL/L (98-107); CREATININE SERUM 0.77 MG/DL (0.60-1.30); GFR ESTIMATED > 60; GLUCOSE 196 MG/DL (70-105); MAGNESIUM 2.2 MG/DL (1.8-2.4); PHOSPHORUS 3.1 MG/DL (2.3-4.7); POTASSIUM 3.5 MMOL/L (3.6-5.0); SODIUM 142 MMOL/L (135-145); TOTAL PROTEIN 5.4 GM/DL (6.4-8.2); TRIGLYCERIDES 92 MG/DL (<150)
[2018-10-21 08:00] VITALS: BP 168/82
[2018-10-21] MEDS: CIPROFLOXACIN IV 400MG/200ML 200 ML IV SCH ×2 (09:12→20:58)
[2018-10-21] MEDS: POTASSIUM CL 10MEQ/50ML IVPB 50 ML IV SCH ×4 (09:13→12:23)
[2018-10-21] MEDS: PANTOPRAZOLE 40 MG (PROTONIX) VIAL IV SCH (09:13)
--- NOTE | 2018-10-21 10:12 | Physical Therapy Daily Note ---
PT Daily Note-Current Subjective Patient agrees to PT. Mental Status Patient Orientation: Normal For Age Attachments: Drains, Ureña Catheter, IV Transfers Therapy Code Descriptions/Definitions Functional [place] Measure: 0=Not Assessed/NA 4=Minimal Assistance 1=Total Assistance 5=Supervision or Setup 2=Maximal Assistance 6=Modified [place] 3=Moderate Assistance 7=Complete [place] Therapy Quality Codes: 6 Independent with activity with or without an assistive device 5 Patient requires set up or clean up by helper. Patient completes activity by themselves 4 Supervision or touching assist (CGA). [place] provide cues , steadying assist 3 The helper provides less than half the effort to complete the activity 2 The helper provides more than half the effort to complete the activity 1 Dependent. The helper does all the effort to complete an activity 7 Patient refused to complete or attempt activity 9 The patient did not perform the activity before the current illness or injury 88 Not attempted due to Medical conditions or safety concerns Transfers (B, C, W/C) (FIM): 5 Scootin Rollin Roll Left to Right (QC): 5 Supine to/from Sit: 5 Sit to/from Stand: 6 Sit to Lying (QC): 5 Sit to Stand (QC): 6 Chair/Alb-dd-Tphnk Xfer(QC): 6 Bed to/from Chair: 6 Weight Bearing Right Lower Extremity: Right Full Weight Bearing Left Lower Extremity: Left Weight Bearing/Tolerated Gait Training Does the Patient Walk?: Yes Gait (FIM): 2 Distance (FIM): 6=199-75 ft Distance: 125' Walk 10 feet (QC): 6 Walk 50 ft with 2 Turns(QC): 6 Gait Level of Assist: 6 Gait Assistive Device: FWW WBOS/functional gait sequence Exercises Supine Ex: Ankle pumps, Quad Set, Heel Slides Supine Reps: 15 Seated Therapy Exercises: Long arc quads Seated Reps: 15 Assessment Patient tolerated treatment well and is up in recliner with needs met. PT Short Term Goals Short Term Goals Transfers (B,C,W/C) (FIM): 5 PT Fitter Machinist Goals Usp Goals PT Fitter Machinist Goals Time Frame: Nov 16, 2018 Transfers (B,C,W/C) (FIM): 6 Sit to Lying (QC): 6 Lying-Sitting on Side/Bed(QC): 6 Sit to Stand (QC): 6 Rollin Roll Left to Right (QC): 6 Chair/Orv-jt-Cffgx Xfer(QC): 6 Car Transfer (QC): 6 Does the Patient Walk: Yes Gait (FIM): 6 Gait distance (FIM): 3=150 ft Distance: 200' Walk 10 feet (QC): 6 Walk 10ft-Uneven Surface(QC): 6 Walk 50ft with 2 Turns (QC): 6 Walk 150 ft (QC): 6 Gait Level of Assist: 6 Gait Assistive Device: FWW PT Plan Treatment/Plan Treatment Plan: Continue Plan of Care Treatment Plan: Bed Mobility, Education, Functional Activity Amrcelina, Functional Strength, Gait, Safety, Therapeutic Exercise, Transfers Treatment Duration: Nov 16, 2018 Frequency: 6 times per week Estimated Hrs Per Day: .25 hour per day Patient and/or Family Agrees t: Yes Time/GCodes Time In: 936 Time Out: 959 Total Billed Treatment Time: 23 Total Billed Treatment 1 visit FA 13 min EX 10 min PRIMO JOSE PT Oct 21, 2018 10:12
--- NOTE | 2018-10-21 11:15 | Occupational Ther Daily Note ---
OT Current Status-Daily Note Subjective Pt alert, sitting in chair. Pt agrees to therapy. No c/o pain. Nrsg in room. Mental Status/Objective Patient Orientation: Person, Place, Time, Situation Therapy Code Descriptions/Definitions Functional [place] Measure: 0=Not Assessed/NA 4=Minimal Assistance 1=Total Assistance 5=Supervision or Setup 2=Maximal Assistance 6=Modified [place] 3=Moderate Assistance 7=Complete [place] Attachments: IV (PICC), Oxygen ADL-Treatment Pt agrees to shower. IV site covered prior to shower. Noted wound dressing was leaking, reported to nrsg. Assist with IV pole and tubing. Using FWW, pt able to ambulate to bathroom and transfer into shower by self. Assist to don/doff socks. Pt states that she has AE for lower body clothing at home that she uses. Pt complete bathing using shower bench, grabbar and hand held shower. Pt donned/doffed hospital gown by self. Pt stated that the shower wore her out. After therapy, pt sitting in recliner with call light/phone in reach. All needs met in room. Therapy Code Descriptions/Definitions Functional [place] Measure: 0=Not Assessed/NA 4=Minimal Assistance 1=Total Assistance 5=Supervision or Setup 2=Maximal Assistance 6=Modified [place] 3=Moderate Assistance 7=Complete [place] Therapy Quality Codes: 6 Independent with activity with or without an assistive device 5 Patient requires set up or clean up by helper. Patient completes activity by themselves 4 Supervision or touching assist (CGA). [place] provide cues , steadying assist 3 The helper provides less than half the effort to complete the activity 2 The helper provides more than half the effort to complete the activity 1 Dependent. The helper does all the effort to complete an activity 7 Patient refused to complete or attempt activity 9 The patient did not perform the activity before the current illness or injury 88 Not attempted due to Medical conditions or safety concerns Bathing (FIM): 5 Shower/Bathe Self (QC): 4 OT Short Term Goals Short Term Goals Time Frame: Nov 01, 2018 Grooming(FIM): 5 Bathing(FIM): 5 Upper Body Dressing(FIM): 5 Lower Body Dressing(FIM): 5 Toileting(FIM): 5 Transfers (B,C,W/C) (FIM): 5 Toilet/Commode Transfer(FIM): 5 Shower Transfer(FIM): 5 1=Demonstrate adherence to instructed precautions during ADL tasks. 2=Patient will verbalize/demonstrate understanding of assistive devices/modifications for ADL. 3=Patient will improve strength/tolerance for activity to enable patient to perform ADL's. OT Egg Breaker Goals Skilled Nursing Goals Time Frame: Nov 15, 2018 Eating (FIM): 7 Eating (QC): 6 Groomin Oral Hygiene (QC): 6 Bathing(FIM): 6 Bathing Location: L Arm, R Arm, L Upper Leg, R Upper Leg, L Lower Leg (including foot), R Lower Leg (including foot), Chest, Abdomen, Buttocks, Perineal Area Shower/Bathe Self (QC): 6 Upper Body Dressing(FIM): 6 Upper Body Dressing (QC): 6 Lower Body Dressing(FIM): 6 Lower Body Dressing (QC): 6 On/Off Footwear (QC): 6 Toileting(FIM): 6 Toileting Hygiene (QC): 6 Transfers (B,C,W/C) (FIM): 6 Toilet/Commode Transfer(FIM): 6 Toilet/Commode Transfer (QC): 6 Shower Transfer(FIM): 6 Additional Goals: 1-Demonstrate ADL Tasks, 2-Verbalize Understanding, 3- ImproveStrength/Marcelina 1=Demonstrate adherence to instructed precautions during ADL tasks. 2=Patient will verbalize/demonstrate understanding of assistive devices/modifications for ADL. 3=Patient will improve strength/tolerance for activity to enable patient to perform ADL's. OT Education/Plan Problem List/Assessment Assessment: Decreased Activ Tolerance, Impaired Self-Care Skills pt presents with functional limitations affecting areas of ADLs and functional transfers. pt would benefit from OT services to increase independence with ADLS and functional transfers. Discharge Recommendations Plan/Recommendations: Continue POC Treatment Plan/Plan of Care Patient would benefit from OT for education, treatment and training to promote independence in ADL's, mobility, safety and/or upper extremity function for ADL's. Treatment Duration: Nov 15, 2018 Frequency: 5 times per week Estimated Hrs Per Day: .25 hour per day (-0.50) Rehab Potential: Fair Time/GCodes Start Time: 10:20 Stop Time: 11:00 Total Time Billed (hr/min): 40 Billed Treatment Time 1 visit-ADL 3 (40 min) MAVERICK BRANDON Oct 21, 2018 11:15
[2018-10-21] MEDS: FLUCONAZOLE 200 MG/100 ML 100 ML IV SCH (12:24)
--- NOTE | 2018-10-21 15:36 | NUR ---
Clinical information sent to Chris Perdomo with [employer] for addition SKILLED Days. Will await number of days authorized.
[2018-10-21] MEDS: [UNRECOGNIZED DRUG - OTHER] IV SCH ×12 (17:19)
[2018-10-21] MEDS: SODIUM CHLORIDE IV SCH ×12 (17:19)
[2018-10-21] MEDS: POTASSIUM CHLORIDE IV SCH ×12 (17:19)
[2018-10-21 20:14] VITALS: BP 129/83
[2018-10-21] MEDS ORDERED: HYDROCORTISONE 100 MG/2 ML (Solu-CORTEF) VIAL IV SCH (21:00)
[2018-10-22] MEDS: inSUlin ASPART (NovoLOG) 1 UNIT/0.01 ML (CHARGE PER UNIT) SC SCH ×4 (02:24→17:13)
[2018-10-22 05:46] LABS: BUN/CREATININE RATIO 32; CARBON DIOXIDE 27 MMOL/L (21-32); CHLORIDE 105 MMOL/L (98-107); CREATININE SERUM 0.78 MG/DL (0.60-1.30); GFR ESTIMATED > 60; GLUCOSE 182 MG/DL (70-105); MAGNESIUM 2.1 MG/DL (1.8-2.4); PHOSPHORUS 2.9 MG/DL (2.3-4.7); POTASSIUM 3.7 MMOL/L (3.6-5.0); SODIUM 141 MMOL/L (135-145)
--- NOTE | 2018-10-22 06:46 | NUR ---
Found stoma wafer bag leaking at beginning of shift and drainage appeared to have mixed blood. Entire appliance taken down and noted large area of denuded skin distal to stoma with small amount constant bleeding. Appliance wafer not reapplied. Stoma kept moist with ns gauze and denuded area covered with dry gauze. Area reinforced with 2 abd pads. Dressing changes minimal through night, denuded area continues to have small amt blood oozing.
[2018-10-22 07:46] VITALS: BP 142/83
[2018-10-22] MEDS: CIPROFLOXACIN IV 400MG/200ML 200 ML IV SCH (07:59)
[2018-10-22] MEDS: PANTOPRAZOLE 40 MG (PROTONIX) VIAL IV SCH (07:59)
[2018-10-22] MEDS: HYDROCORTISONE 100 MG/2 ML (Solu-CORTEF) VIAL IV SCH ×2 (08:00→21:19)
[2018-10-22] MEDS ORDERED: FUROSEMIDE 40 MG/4 ML INJ (LASIX) ONE (09:16)
[2018-10-22] MEDS ORDERED: FUROSEMIDE 40 MG/4 ML INJ (LASIX) IVP ONE (09:30)
--- NOTE | 2018-10-22 11:24 | Physical Therapy Daily Note ---
PT Daily Note-Current Subjective Patient agrees to exercises only due to open wound. Mental Status Patient Orientation: Normal For Age Attachments: Ureña Catheter, IV Transfers Therapy Code Descriptions/Definitions Functional [place] Measure: 0=Not Assessed/NA 4=Minimal Assistance 1=Total Assistance 5=Supervision or Setup 2=Maximal Assistance 6=Modified [place] 3=Moderate Assistance 7=Complete [place] Therapy Quality Codes: 6 Independent with activity with or without an assistive device 5 Patient requires set up or clean up by helper. Patient completes activity by themselves 4 Supervision or touching assist (CGA). [place] provide cues , steadying assist 3 The helper provides less than half the effort to complete the activity 2 The helper provides more than half the effort to complete the activity 1 Dependent. The helper does all the effort to complete an activity 7 Patient refused to complete or attempt activity 9 The patient did not perform the activity before the current illness or injury 88 Not attempted due to Medical conditions or safety concerns Weight Bearing Right Lower Extremity: Right Full Weight Bearing Left Lower Extremity: Left Weight Bearing/Tolerated Exercises Supine Ex: Ankle pumps, Quad Set, Heel Slides Supine Reps: 15 (3 sets in recliner) Assessment Patient tolerated treatment well and has needs met. PT Short Term Goals Short Term Goals Transfers (B,C,W/C) (FIM): 5 PT Skilled Nursing Goals Medical Receptionist Biller Goals PT Skilled Nursing Goals Time Frame: Nov 16, 2018 Transfers (B,C,W/C) (FIM): 6 Sit to Lying (QC): 6 Lying-Sitting on Side/Bed(QC): 6 Sit to Stand (QC): 6 Rollin Roll Left to Right (QC): 6 Chair/Jzq-ry-Svpyj Xfer(QC): 6 Car Transfer (QC): 6 Does the Patient Walk: Yes Gait (FIM): 6 Gait distance (FIM): 3=150 ft Distance: 200' Walk 10 feet (QC): 6 Walk 10ft-Uneven Surface(QC): 6 Walk 50ft with 2 Turns (QC): 6 Walk 150 ft (QC): 6 Gait Level of Assist: 6 Gait Assistive Device: FWW PT Plan Treatment/Plan Treatment Plan: Continue Plan of Care Treatment Plan: Bed Mobility, Education, Functional Activity Marcelina, Functional Strength, Gait, Safety, Therapeutic Exercise, Transfers Treatment Duration: Nov 16, 2018 Frequency: 6 times per week Estimated Hrs Per Day: .25 hour per day Patient and/or Family Agrees t: Yes Time/GCodes Time In: 1045 Time Out: 1100 Total Billed Treatment Time: 15 Total Billed Treatment 1 visit EX 15 min PRIMO JOSE PT Oct 22, 2018 11:24
--- NOTE | 2018-10-22 12:45 | NUR ---
Replaced wet to dry dressing with collection device hooked up to catheter drainage bag. Pt tolerated dressing change well.
--- NOTE | 2018-10-22 13:21 | Occupational Ther Daily Note ---
OT Current Status-Daily Note Subjective Pt alert, reclined in chair. Pt states that they had to change type of dressing used and she did not want to get up because she didn't want her dressings to fall out. Pt agrees to therapy. No c/o pain. Mental Status/Objective Patient Orientation: Person, Place, Time, Situation Therapy Code Descriptions/Definitions Functional [place] Measure: 0=Not Assessed/NA 4=Minimal Assistance 1=Total Assistance 5=Supervision or Setup 2=Maximal Assistance 6=Modified [place] 3=Moderate Assistance 7=Complete [place] Attachments: Drains, Ureña Catheter, IV, Oxygen ADL-Treatment Therapy Code Descriptions/Definitions Functional [place] Measure: 0=Not Assessed/NA 4=Minimal Assistance 1=Total Assistance 5=Supervision or Setup 2=Maximal Assistance 6=Modified [place] 3=Moderate Assistance 7=Complete [place] Therapy Quality Codes: 6 Independent with activity with or without an assistive device 5 Patient requires set up or clean up by helper. Patient completes activity by themselves 4 Supervision or touching assist (CGA). [place] provide cues , steadying assist 3 The helper provides less than half the effort to complete the activity 2 The helper provides more than half the effort to complete the activity 1 Dependent. The helper does all the effort to complete an activity 7 Patient refused to complete or attempt activity 9 The patient did not perform the activity before the current illness or injury 88 Not attempted due to Medical conditions or safety concerns Other Treatment Pt completed UE strengthening against gravity and UE stretching. Pt tolerated 2 sets 15 reps of 4 exercises. Stretching to UE's holding each for 10 secs. After therapy, pt reclined in chair with call light/phone in reach. All needs met in room. OT Short Term Goals Short Term Goals Time Frame: Nov 01, 2018 Grooming(FIM): 5 Bathing(FIM): 5 Upper Body Dressing(FIM): 5 Lower Body Dressing(FIM): 5 Toileting(FIM): 5 Transfers (B,C,W/C) (FIM): 5 Toilet/Commode Transfer(FIM): 5 Shower Transfer(FIM): 5 1=Demonstrate adherence to instructed precautions during ADL tasks. 2=Patient will verbalize/demonstrate understanding of assistive devices/modifications for ADL. 3=Patient will improve strength/tolerance for activity to enable patient to perform ADL's. OT Snow Technician Goals Nursing Home Goals Time Frame: Nov 15, 2018 Eating (FIM): 7 Eating (QC): 6 Groomin Oral Hygiene (QC): 6 Bathing(FIM): 6 Bathing Location: L Arm, R Arm, L Upper Leg, R Upper Leg, L Lower Leg (including foot), R Lower Leg (including foot), Chest, Abdomen, Buttocks, Perineal Area Shower/Bathe Self (QC): 6 Upper Body Dressing(FIM): 6 Upper Body Dressing (QC): 6 Lower Body Dressing(FIM): 6 Lower Body Dressing (QC): 6 On/Off Footwear (QC): 6 Toileting(FIM): 6 Toileting Hygiene (QC): 6 Transfers (B,C,W/C) (FIM): 6 Toilet/Commode Transfer(FIM): 6 Toilet/Commode Transfer (QC): 6 Shower Transfer(FIM): 6 Additional Goals: 1-Demonstrate ADL Tasks, 2-Verbalize Understanding, 3- ImproveStrength/Marcelina 1=Demonstrate adherence to instructed precautions during ADL tasks. 2=Patient will verbalize/demonstrate understanding of assistive devices/modifications for ADL. 3=Patient will improve strength/tolerance for activity to enable patient to perform ADL's. OT Education/Plan Problem List/Assessment Assessment: Decreased UE Strength pt presents with functional limitations affecting areas of ADLs and functional transfers. pt would benefit from OT services to increase independence with ADLS and functional transfers. Discharge Recommendations Plan/Recommendations: Continue POC Treatment Plan/Plan of Care Patient would benefit from OT for education, treatment and training to promote independence in ADL's, mobility, safety and/or upper extremity function for ADL's. Treatment Duration: Nov 15, 2018 Frequency: 5 times per week Estimated Hrs Per Day: .25 hour per day (-0.50) Rehab Potential: Fair Time/GCodes Start Time: 11:17 Stop Time: 11:35 Total Time Billed (hr/min): 18 Billed Treatment Time 1 visit-EX 1 (18 min) MAVERICK BRANDON Oct 22, 2018 13:21
[2018-10-22] MEDS: FLUCONAZOLE 200 MG/100 ML 100 ML IV SCH (13:27)
--- NOTE | 2018-10-22 15:37 | NUR ---
SWINGBED NOTE: This RN has made 2 attempts (one this morning and one now)to get in touch with Chris Perdomo at [facility] for continued stay determination and next review date. I have not spoke with or gotten any form of communication from him today. Will call again in the morning if I have not heard from him by then.
--- NOTE | 2018-10-22 15:57 | NUR ---
SWINGBED NOTE: Fax received from Chris Conor, giving authorization until the 10/25 when and additional set of clinicals will be due. Auth # [id number].
--- NOTE | 2018-10-22 17:04 | Progress Note - Surgery ---
Subjective Time Seen by a Provider: 11:51 Subjective/Events-last exam Pt seen and examined, doing well sitting up in chair. No new complaints. Review of Systems General: No Chills, No Night Sweats Pulmonary: No Dyspnea, No Cough Cardiovascular: No: Chest Pain, Palpitations Gastrointestinal: Nausea Objective Exam Vital Signs Date Time Temp Pulse Resp B/P (MAP) Pulse Ox O2 Delivery O2 Flow Rate FiO2 10/22/18 09:00 Nasal Cannula 2.00 10/22/18 07:46 98.8 50 22 142/83 (102) 94 High Flow N/C 2.00 10/22/18 05:55 High Flow N/C 2.00 10/21/18 21:00 96 Nasal Cannula 2.00 10/21/18 20:14 98.4 53 22 129/83 (98) 92 Nasal Cannula 2.00 10/21/18 19:44 91 High Flow N/C 2.00 I & O 10/22/18 07:00 Intake Total 2188 ml Output Total 2650 ml Balance -462 ml Capillary Refill : General Appearance: No Apparent Distress, Obese HEENT: PERRL/EOMI Neck: Non Tender, Supple, Other (central line in place) Respiratory: Chest Non Tender, No Accessory Muscle Use, No Respiratory Distress Cardiovascular: Regular Rate, Rhythm Gastrointestinal: non tender, soft, other (large enterocutaneous fistula, mesh visible) Extremity: Non Tender, Swelling Neurologic/Psychiatric: Alert, Oriented x3, real estate acquisition analyst II-XII Norm as Tested Skin: Normal Color, Warm/Dry Results Lab Laboratory Tests 10/21/18 17:34: Glucometer 164H 10/21/18 23:26: Glucometer 191H 10/22/18 05:00: Sodium Level 141, Potassium Level 3.7, Chloride Level 105, Carbon Dioxide Level 27, Anion Gap 9, Blood Urea Nitrogen 25H, Creatinine 0.78, Estimat Glomerular Filtration Rate > 60, BUN/Creatinine Ratio 32, Glucose Level 182H, Calcium Level 8.0L, Phosphorus Level 2.9, Magnesium Level 2.1 10/22/18 05:04: Glucometer 166H 10/22/18 12:27: Glucometer 163H Assessment/Plan Assessment/Plan Assessment/Plan Candidemia - On fluconazole Intestinal Bleeding - appears to have stopped Enterocutaneous Fistula Recurrent Ventral hernia Plan is to do surgery on Sunday, try to repair enterocutaneous fistula and remove mesh. I will talk to her more about it as we get closer to Sunday. I did tell there is a possibility she will have to have a wound VAC if we can't get her abdomen closed. Clinical Quality Measures DVT/VTE Risk/Contraindication: Risk Factor Score Per Nursin MANDA STEWART DO Oct 22, 2018 17:04
[2018-10-22] MEDS: POTASSIUM CHLORIDE IV SCH ×12 (17:37)
[2018-10-22] MEDS: SODIUM CHLORIDE IV SCH ×12 (17:37)
[2018-10-22] MEDS: [UNRECOGNIZED DRUG - OTHER] IV SCH ×12 (17:37)
[2018-10-22 20:54] VITALS: BP 149/80
[2018-10-23] MEDS: inSUlin ASPART (NovoLOG) 1 UNIT/0.01 ML (CHARGE PER UNIT) SC SCH ×4 (00:10→18:10)
[2018-10-23 05:56] LABS: BUN/CREATININE RATIO 32; CARBON DIOXIDE 29 MMOL/L (21-32); CHLORIDE 103 MMOL/L (98-107); CREATININE SERUM 0.78 MG/DL (0.60-1.30); GFR ESTIMATED > 60; GLUCOSE 192 MG/DL (70-105); PHOSPHORUS 2.8 MG/DL (2.3-4.7); POTASSIUM 3.6 MMOL/L (3.6-5.0); SODIUM 140 MMOL/L (135-145)
[2018-10-23 07:36] VITALS: BP 134/81
[2018-10-23] MEDS: HYDROCORTISONE 100 MG/2 ML (Solu-CORTEF) VIAL IV SCH (08:17)
[2018-10-23] MEDS: PANTOPRAZOLE 40 MG (PROTONIX) VIAL IV SCH (08:17)
--- NOTE | 2018-10-23 10:22 | Occupational Ther Daily Note ---
OT Current Status-Daily Note Subjective Pt alert, sitting in recliner. Pt states, "I think I am leaking again because I can smell it." Pt agrees to therapy in sitting. No other c/o. Mental Status/Objective Patient Orientation: Person, Place, Time, Situation Therapy Code Descriptions/Definitions Functional [place] Measure: 0=Not Assessed/NA 4=Minimal Assistance 1=Total Assistance 5=Supervision or Setup 2=Maximal Assistance 6=Modified Starr 3=Moderate Assistance 7=Complete [place] Attachments: Drains, Ureña Catheter, IV, Oxygen ADL-Treatment Pt agrees to work on lower body bathing and dressing. Pt requires AE for lower body dressing and bathing, states she has this at home. Increased edema in LE's. Feet soaking in cold water then assist to dry and don socks. Light massage to lower legs/feet to decrease swelling and discomfort. After therapy, pt sitting in chair with Recreational Therapist in room. Call light/phone in reach. All needs met in room. Therapy Code Descriptions/Definitions Functional St[place] Measure: 0=Not Assessed/NA 4=Minimal Assistance 1=Total Assistance 5=Supervision or Setup 2=Maximal Assistance 6=Modified St[place] 3=Moderate Assistance 7=Complete St[place] Therapy Quality Codes: 6 Independent with activity with or without an assistive device 5 Patient requires set up or clean up by helper. Patient completes activity by themselves 4 Supervision or touching assist (CGA). [employer] provide cues , steadying assist 3 The helper provides less than half the effort to complete the activity 2 The helper provides more than half the effort to complete the activity 1 Dependent. The helper does all the effort to complete an activity 7 Patient refused to complete or attempt activity 9 The patient did not perform the activity before the current illness or injury 88 Not attempted due to Medical conditions or safety concerns Lower Body Dressing (FIM): 2 (unable to reach feet due to abdominal wound) Lower Body Dressing (QC): 2 On/Off Footwear (QC): 1 OT Short Term Goals Short Term Goals Time Frame: Nov 01, 2018 Grooming(FIM): 5 Bathing(FIM): 5 Upper Body Dressing(FIM): 5 Lower Body Dressing(FIM): 5 Toileting(FIM): 5 Transfers (B,C,W/C) (FIM): 5 Toilet/Commode Transfer(FIM): 5 Shower Transfer(FIM): 5 1=Demonstrate adherence to instructed precautions during ADL tasks. 2=Patient will verbalize/demonstrate understanding of assistive devices/modifications for ADL. 3=Patient will improve strength/tolerance for activity to enable patient to perform ADL's. OT Information Technology Director Goals Alf Goals Time Frame: Nov 15, 2018 Eating (FIM): 7 Eating (QC): 6 Groomin Oral Hygiene (QC): 6 Bathing(FIM): 6 Bathing Location: L Arm, R Arm, L Upper Leg, R Upper Leg, L Lower Leg (including foot), R Lower Leg (including foot), Chest, Abdomen, Buttocks, Perineal Area Shower/Bathe Self (QC): 6 Upper Body Dressing(FIM): 6 Upper Body Dressing (QC): 6 Lower Body Dressing(FIM): 6 Lower Body Dressing (QC): 6 On/Off Footwear (QC): 6 Toileting(FIM): 6 Toileting Hygiene (QC): 6 Transfers (B,C,W/C) (FIM): 6 Toilet/Commode Transfer(FIM): 6 Toilet/Commode Transfer (QC): 6 Shower Transfer(FIM): 6 Additional Goals: 1-Demonstrate ADL Tasks, 2-Verbalize Understanding, 3- ImproveStrength/Marcelina 1=Demonstrate adherence to instructed precautions during ADL tasks. 2=Patient will verbalize/demonstrate understanding of assistive devices/modific ations for ADL. 3=Patient will improve strength/tolerance for activity to enable patient to perform ADL's. OT Education/Plan Problem List/Assessment pt presents with functional limitations affecting areas of ADLs and functional transfers. pt would benefit from OT services to increase independence with ADLS and functional transfers. Discharge Recommendations Plan/Recommendations: Continue POC Treatment Plan/Plan of Care Patient would benefit from OT for education, treatment and training to promote independence in ADL's, mobility, safety and/or upper extremity function for ADL's. Treatment Duration: Nov 15, 2018 Frequency: 5 times per week Estimated Hrs Per Day: .25 hour per day (-0.50) Rehab Potential: Fair Time/GCodes Start Time: 09:50 Stop Time: 10:20 Total Time Billed (hr/min): 30 Billed Treatment Time 1 visit-FA 2 (30 min) MAVERICK BRANDON Oct 23, 2018 10:22
--- NOTE | 2018-10-23 11:29 | Physical Therapy Daily Note ---
PT Daily Note-Current Subjective Patient in recliner pre tx, agrees to PT but states that her abdominal bandage is coming loose and it probably would not be a good idea to ambulate at this time, she agrees to seated exercises, no complaints of pain at rest. Appearance Patient in recliner post tx with nurse call, phone, tray, both legs elevated. Mental Status Patient Orientation: Person, Place, Situation Transfers Therapy Code Descriptions/Definitions Functional Wallace Measure: 0=Not Assessed/NA 4=Minimal Assistance 1=Total Assistance 5=Supervision or Setup 2=Maximal Assistance 6=Modified [place] 3=Moderate Assistance 7=Complete [place] Therapy Quality Codes: 6 Independent with activity with or without an assistive device 5 Patient requires set up or clean up by helper. Patient completes activity by themselves 4 Supervision or touching assist (CGA). [place] provide cues , steadying assist 3 The helper provides less than half the effort to complete the activity 2 The helper provides more than half the effort to complete the activity 1 Dependent. The helper does all the effort to complete an activity 7 Patient refused to complete or attempt activity 9 The patient did not perform the activity before the current illness or injury 88 Not attempted due to Medical conditions or safety concerns Weight Bearing Right Lower Extremity: Right Full Weight Bearing Left Lower Extremity: Left Weight Bearing/Tolerated Exercises Supine Ex: Quad Set, Glut sets, Heel Slides, Straight leg raise, Hip abd/add Supine Reps: 15 (done in recliner with legs elevated) Seated Therapy Exercises: Ankle pumps, Long arc quads, Hip flexion Seated Reps: 15 Treatments BLE exercises Assessment Current Status: Fair Progress Patient has some difficulty with exercises on the left side. PT Short Term Goals Short Term Goals Transfers (B,C,W/C) (FIM): 5 PT Custodial Goals Custodial Goals PT Hazardous Materials Waste Technician Goals Time Frame: Nov 16, 2018 Transfers (B,C,W/C) (FIM): 6 Sit to Lying (QC): 6 Lying-Sitting on Side/Bed(QC): 6 Sit to Stand (QC): 6 Rollin Roll Left to Right (QC): 6 Chair/Skj-pu-Ylzzl Xfer(QC): 6 Car Transfer (QC): 6 Does the Patient Walk: Yes Gait (FIM): 6 Gait distance (FIM): 3=150 ft Distance: 200' Walk 10 feet (QC): 6 Walk 10ft-Uneven Surface(QC): 6 Walk 50ft with 2 Turns (QC): 6 Walk 150 ft (QC): 6 Gait Level of Assist: 6 Gait Assistive Device: FWW PT Plan Problem List Problem List: Activity Tolerance, Functional Strength, Safety, Balance, Gait, Transfer, Bed Mobility, ROM Treatment/Plan Treatment Plan: Continue Plan of Care Treatment Plan: Bed Mobility, Education, Functional Activity Marcelina, Functional Strength, Gait, Safety, Therapeutic Exercise, Transfers Treatment Duration: Nov 16, 2018 Frequency: 6 times per week Estimated Hrs Per Day: .25 hour per day Patient and/or Family Agrees t: Yes Safety Risks/Education Patient Education: Correct Positioning, Safety Issues Teaching Recipient: Patient Teaching Methods: Demonstration, Discussion Response to Teaching: Reinforcement Needed Time/GCodes Time In: 1115 Time Out: 1129 Total Billed Treatment Time: 14 Total Billed Treatment 1 visit EX PRUDENCIO HOFF PT Oct 23, 2018 11:29
[2018-10-23] MEDS: FLUCONAZOLE 200 MG/100 ML 100 ML IV SCH (12:30)
--- NOTE | 2018-10-23 14:06 | Progress Note - Surgery ---
Subjective Time Seen by a Provider: 13:32 Subjective/Events-last exam Pt seen and examined, denies any neck pain or warmth. No changes with abdominal pain and fistula output. Review of Systems General: No Chills, No Night Sweats Pulmonary: No Dyspnea, No Cough Cardiovascular: No: Chest Pain, Palpitations Gastrointestinal: No: Nausea, Vomiting Objective Exam Vital Signs Date Time Temp Pulse Resp B/P (MAP) Pulse Ox O2 Delivery O2 Flow Rate FiO2 10/23/18 09:00 Nasal Cannula 2.00 10/23/18 07:36 98.9 64 18 134/81 (98) 92 Nasal Cannula 2.00 10/23/18 06:31 High Flow N/C 2.00 10/22/18 21:00 Nasal Cannula 2.00 10/22/18 20:54 98.2 64 18 149/80 (103) 92 Nasal Cannula 2.00 10/22/18 19:07 92 High Flow N/C 2.00 I & O 10/23/18 07:00 Intake Total 2088.4167 ml Output Total 5805 ml Balance -3716.5833 ml Capillary Refill : General Appearance: No Apparent Distress, Obese HEENT: PERRL/EOMI, Other (Central line looks good, no erythema or tenderness) Neck: Non Tender, Supple, Other (central line in place) Respiratory: Chest Non Tender, No Accessory Muscle Use, No Respiratory Distress Cardiovascular: Regular Rate, Rhythm, No Murmur Gastrointestinal: non tender, soft, other (large enterocutaneous fistula, mesh visible) Extremity: Swelling Neurologic/Psychiatric: Alert, Oriented x3, band splitter II-XII Norm as Tested Skin: Normal Color, Warm/Dry Results Lab Laboratory Tests 10/22/18 17:10: Glucometer 151H 10/22/18 23:51: Glucometer 151H 10/23/18 05:12: Glucometer 209H 10/23/18 05:15: Sodium Level 140, Potassium Level 3.6, Chloride Level 103, Carbon Dioxide Level 29, Anion Gap 8, Blood Urea Nitrogen 25H, Creatinine 0.78, Estimat Glomerular Filtration Rate > 60, BUN/Creatinine Ratio 32, Glucose Level 192H, Calcium Level 8.0L, Phosphorus Level 2.8, Magnesium Level 2.0 10/23/18 12:17: Glucometer 130H Assessment/Plan Assessment/Plan Assessment/Plan Candidemia - On fluconazole Intestinal Bleeding - appears to have stopped Enterocutaneous Fistula Recurrent Ventral hernia Central line looks good for now, will hold off on replacing it and just D/C on Sunday when we get new peripheral IV during surgery. Still plan on doing surgery on Sunday; will try to repair enterocutaneous fistula and remove mesh. I will get a consent for Exploratory Laparotomy with Small Bowel Resection, attempted mesh removal and attempted ventral hernia repair. I did tell there is a possibility she will have to have a wound VAC if we can't get her abdomen closed. All questions answered to her satisfaction. We discussed all risks and complications, not limited to pain, bleeding, infection, damage to bowel, need for wound VAC, inability to get abdomen closed and even being no better off than she is now. She understood and is just very happy that we are going to try. Clinical Quality Measures DVT/VTE Risk/Contraindication: Risk Factor Score Per Nursin MANDA STEWART DO Oct 23, 2018 14:06
[2018-10-23] MEDS: SODIUM CHLORIDE IV SCH ×12 (15:30)
[2018-10-23] MEDS: POTASSIUM CHLORIDE IV SCH ×12 (15:30)
[2018-10-23] MEDS: [UNRECOGNIZED DRUG - OTHER] IV SCH ×12 (15:30)
[2018-10-23 19:25] VITALS: BP 128/83
[2018-10-24] MEDS: inSUlin ASPART (NovoLOG) 1 UNIT/0.01 ML (CHARGE PER UNIT) SC SCH ×4 (06:00→17:49)
--- NOTE | 2018-10-24 07:17 | NUR ---
Patient was on 2 L NC and satting 92% so RT decreased O2 to 1 L NC, will continue to monitor; patient denies any SOA and states she does not need anything at this time
[2018-10-24 07:24] VITALS: BP 125/66
[2018-10-24] MEDS: PANTOPRAZOLE 40 MG (PROTONIX) VIAL IV SCH (07:57)
[2018-10-24 08:48] LABS: BUN/CREATININE RATIO 32; CARBON DIOXIDE 28 MMOL/L (21-32); CHLORIDE 105 MMOL/L (98-107); CREATININE SERUM 0.71 MG/DL (0.60-1.30); GFR ESTIMATED > 60; GLUCOSE 130 MG/DL (70-105); MAGNESIUM 2.1 MG/DL (1.8-2.4); PHOSPHORUS 2.6 MG/DL (2.3-4.7); SODIUM 140 MMOL/L (135-145)
--- NOTE | 2018-10-24 09:45 | Progress Note - Surgery ---
Subjective Time Seen by a Provider: 09:13 Subjective/Events-last exam Pt seen and examined, no new changes and no complaints. Pt is very excited about surgery tomorrow. Review of Systems General: No Chills, No Night Sweats Pulmonary: No Dyspnea, No Cough Cardiovascular: No: Chest Pain Gastrointestinal: Abdominal Pain (minimal); No: Nausea, Vomiting Objective Exam Vital Signs Date Time Temp Pulse Resp B/P (MAP) Pulse Ox O2 Delivery O2 Flow Rate FiO2 10/24/18 07:24 98.7 76 18 125/66 (85) 93 Nasal Cannula 2.00 10/24/18 07:08 92 High Flow N/C 2.00 10/23/18 21:00 High Flow N/C 2.00 10/23/18 21:00 Nasal Cannula 2.00 10/23/18 19:25 100.0 59 20 128/83 (98) 93 Nasal Cannula 2.00 I & O 10/24/18 07:00 Output Total 2730 ml Balance -2730 ml Capillary Refill : General Appearance: No Apparent Distress, Obese HEENT: PERRL/EOMI, Other (Central line looks good, no erythema or tenderness) Neck: Non Tender, Supple, Other (central line in place) Respiratory: Chest Non Tender, No Accessory Muscle Use, No Respiratory Distress Cardiovascular: Regular Rate, Rhythm, No Murmur Gastrointestinal: non tender, soft, other (large enterocutaneous fistula, mesh visible) Extremity: Swelling Neurologic/Psychiatric: Alert, Oriented x3, assistant winemaker II-XII Norm as Tested Skin: Normal Color, Warm/Dry Results Lab Laboratory Tests 10/23/18 12:17: Glucometer 130H 10/23/18 17:26: Glucometer 137H 10/24/18 00:26: Glucometer 127H 10/24/18 05:59: Glucometer 131H 10/24/18 08:20: Sodium Level 140, Potassium Level 4.0, Chloride Level 105, Carbon Dioxide Level 28, Anion Gap 7, Blood Urea Nitrogen 23H, Creatinine 0.71, Estimat Glomerular Filtration Rate > 60, BUN/Creatinine Ratio 32, Glucose Level 130H, Calcium Level 8.0L, Phosphorus Level 2.6, Magnesium Level 2.1 Assessment/Plan Assessment/Plan Assessment/Plan Candidemia - On fluconazole Intestinal Bleeding - appears to have stopped Enterocutaneous Fistula Recurrent Ventral hernia Central line looks good for now, will hold off on replacing it and just D/C on Sunday when we get new peripheral IV during surgery. Surgical plan is to repair enterocutaneous fistula and remove mesh. I will get a consent for Exploratory Laparotomy with Small Bowel Resection, attempted mesh removal and attempted ventral hernia repair. I did tell there is a possibility she will have to have a wound VAC if we can't get her abdomen closed. All questions answered to her satisfaction. We discussed all risks and complications, not limited to pain, bleeding, infection, damage to bowel, need for wound VAC, inability to get abdomen closed and even being no better off than she is now. She understood and is just very happy that we are going to try. Clinical Quality Measures DVT/VTE Risk/Contraindication: Risk Factor Score Per Nursin MANDA STEWART DO Oct 24, 2018 09:45
--- NOTE | 2018-10-24 09:50 | Physical Therapy Daily Note ---
PT Daily Note-Current Subjective Patient reports her bag is leaking. Agrees to exercises in recliner. Transfers Therapy Code Descriptions/Definitions Functional [place] Measure: 0=Not Assessed/NA 4=Minimal Assistance 1=Total Assistance 5=Supervision or Setup 2=Maximal Assistance 6=Modified [place] 3=Moderate Assistance 7=Complete [place] Therapy Quality Codes: 6 Independent with activity with or without an assistive device 5 Patient requires set up or clean up by helper. Patient completes activity by themselves 4 Supervision or touching assist (CGA). [place] provide cues , steadying assist 3 The helper provides less than half the effort to complete the activity 2 The helper provides more than half the effort to complete the activity 1 Dependent. The helper does all the effort to complete an activity 7 Patient refused to complete or attempt activity 9 The patient did not perform the activity before the current illness or injury 88 Not attempted due to Medical conditions or safety concerns Weight Bearing Right Lower Extremity: Right Full Weight Bearing Left Lower Extremity: Left Weight Bearing/Tolerated Exercises Supine Ex: Ankle pumps, Quad Set, Heel Slides Supine Reps: 15 (2 sets) Seated Therapy Exercises: Long arc quads Seated Reps: 15 Assessment Patient tolerated treatment well and report she is motivated to have surgery to close wound tomorrow. PT Short Term Goals Short Term Goals Transfers (B,C,W/C) (FIM): 5 PT Prison Goals Prison Goals PT Prison Goals Time Frame: Nov 16, 2018 Transfers (B,C,W/C) (FIM): 6 Sit to Lying (QC): 6 Lying-Sitting on Side/Bed(QC): 6 Sit to Stand (QC): 6 Rollin Roll Left to Right (QC): 6 Chair/Hic-lz-Jionq Xfer(QC): 6 Car Transfer (QC): 6 Does the Patient Walk: Yes Gait (FIM): 6 Gait distance (FIM): 3=150 ft Distance: 200' Walk 10 feet (QC): 6 Walk 10ft-Uneven Surface(QC): 6 Walk 50ft with 2 Turns (QC): 6 Walk 150 ft (QC): 6 Gait Level of Assist: 6 Gait Assistive Device: FWW PT Plan Treatment/Plan Treatment Plan: Continue Plan of Care Treatment Plan: Bed Mobility, Education, Functional Activity Marcelina, Functional Strength, Gait, Safety, Therapeutic Exercise, Transfers Treatment Duration: Nov 16, 2018 Frequency: 6 times per week Estimated Hrs Per Day: .25 hour per day Patient and/or Family Agrees t: Yes Time/GCodes Time In: 850 Time Out: 805 Total Billed Treatment Time: 15 Total Billed Treatment 1 visit EX 15 min PRIMO JOSE PT Oct 24, 2018 09:50
--- NOTE | 2018-10-24 10:14 | Progress Note - Hospitalist ---
Subjective HPI/CC On Admission Date Seen by Provider: Oct 24, 2018 Time Seen by Provider: 09:00 Subjective/Events-last exam Surgery is scheduled tomorrow to close up the fistula. Lasix 40 Mg every other day will be initiated starting today. Conferred with RN. Pt denies any significant pain. Overall feels much better about the plan in order to obtain fistula closure in order to re-gain independent life function. Review of Systems General: Fatigue Cardiovascular: Edema Objective Exam Vital Signs Vital Signs Date Time Temp Pulse Resp B/P (MAP) Pulse Ox O2 Delivery O2 Flow Rate FiO2 10/24/18 20:25 98.7 89 22 108/63 (78) 91 Nasal Cannula 2.00 Capillary Refill : General Appearance: No Apparent Distress, WD/WN, Chronically ill, Obese HEENT: PERRL/EOMI, Other (Central line looks good, no erythema or tenderness) Neck: Non Tender, Supple, Other (central line in place) Respiratory: Chest Non Tender, Lungs Clear, Normal Breath Sounds, No Accessory Muscle Use, No Respiratory Distress Cardiovascular: Regular Rate, Rhythm, No Gallop, No JVD, No Murmur Extremity: Pedal Edema, Swelling Neurologic/Psychiatric: Alert, Oriented x3, No Motor/Sensory Deficits, Normal Mood/Affect, lead vulcanizing operator II-XII Norm as Tested Skin: Normal Color, Warm/Dry Results/Procedures Lab Laboratory Tests 10/24/18 08:20 10/24/18 14:15 Patient resulted labs reviewed. Assessment/Plan Assessment and Plan Assess & Plan/Chief Complaint Assessment: Colonic fistula in preparation of repair tomorrow History of UTI Volume overload starting Lasix Plan: Proceed on with surgery tomorrow Lasix every other day of 20 mg IV Monitor for pain Diagnosis/Problems Diagnosis/Problems (1) Enterocutaneous fistula Status: Chronic (2) Malnutrition Status: Acute Qualifiers: Malnutrition type: protein-calorie malnutrition Protein-calorie malnutriti on severity: severe Qualified Codes: E43 - Unspecified severe protein-calorie malnutrition (3) Morbid obesity Status: Chronic (4) Fluid overload Status: Acute Qualifiers: Hypervolemia type: unspecified Qualified Codes: E87.70 - Fluid overload, unspecified (5) Weakness generalized Status: Acute (6) Renal insufficiency Status: Resolved Resolution Date/Time: 10/10/18 @ 13:44 Clinical Quality Measures DVT/VTE Risk/Contraindication: Risk Factor Score Per Nursin CANDELARIO,CY DO Oct 24, 2018 10:14
--- NOTE | 2018-10-24 11:56 | Occupational Ther Daily Note ---
OT Current Status-Daily Note Subjective Pt alert, sitting up in bed. Pt stated 'she is ready for her surgery tomorrow at 12' and 'her dressing continues to leak'. No c/o pain at this time. Mental Status/Objective Patient Orientation: Person, Place, Time, Situation Therapy Code Descriptions/Definitions Functional [place] Measure: 0=Not Assessed/NA 4=Minimal Assistance 1=Total Assistance 5=Supervision or Setup 2=Maximal Assistance 6=Modified [place] 3=Moderate Assistance 7=Complete [place] Attachments: Drains, Ureña Catheter, IV, Oxygen ADL-Treatment Pt able to go from sit <--> stand by self and ambulate into bathroom and stand at sink by self. Pt completed oral care by self then became SOA and fatigued. Pt unable to complete any other grooming or bathing at this time due to decreased activity tolerance. Pt requested to go back and sit down and to increase O2 from 1 L to 2L. BOSE reported to nrsg. After therapy, pt sitting in recliner with call light/phone in reach. All needs met in room. Therapy Code Descriptions/Definitions Functional [place] Measure: 0=Not Assessed/NA 4=Minimal Assistance 1=Total Assistance 5=Supervision or Setup 2=Maximal Assistance 6=Modified [place] 3=Moderate Assistance 7=Complete [place] Therapy Quality Codes: 6 Independent with activity with or without an assistive device 5 Patient requires set up or clean up by helper. Patient completes activity by themselves 4 Supervision or touching assist (CGA). [place] provide cues , steadying assist 3 The helper provides less than half the effort to complete the activity 2 The helper provides more than half the effort to complete the activity 1 Dependent. The helper does all the effort to complete an activity 7 Patient refused to complete or attempt activity 9 The patient did not perform the activity before the current illness or injury 88 Not attempted due to Medical conditions or safety concerns Grooming (FIM): 6 Oral Hygiene (QC): 6 OT Short Term Goals Short Term Goals Time Frame: Nov 01, 2018 Grooming(FIM): 5 Bathing(FIM): 5 Upper Body Dressing(FIM): 5 Lower Body Dressing(FIM): 5 Toileting(FIM): 5 Transfers (B,C,W/C) (FIM): 5 Toilet/Commode Transfer(FIM): 5 Shower Transfer(FIM): 5 1=Demonstrate adherence to instructed precautions during ADL tasks. 2=Patient will verbalize/demonstrate understanding of assistive devices/modifications for ADL. 3=Patient will improve strength/tolerance for activity to enable patient to pe rform ADL's. OT Fpc Goals Fpc Goals Time Frame: Nov 15, 2018 Eating (FIM): 7 Eating (QC): 6 Groomin Oral Hygiene (QC): 6 Bathing(FIM): 6 Bathing Location: L Arm, R Arm, L Upper Leg, R Upper Leg, L Lower Leg (including foot), R Lower Leg (including foot), Chest, Abdomen, Buttocks, Perineal Area Shower/Bathe Self (QC): 6 Upper Body Dressing(FIM): 6 Upper Body Dressing (QC): 6 Lower Body Dressing(FIM): 6 Lower Body Dressing (QC): 6 On/Off Footwear (QC): 6 Toileting(FIM): 6 Toileting Hygiene (QC): 6 Transfers (B,C,W/C) (FIM): 6 Toilet/Commode Transfer(FIM): 6 Toilet/Commode Transfer (QC): 6 Shower Transfer(FIM): 6 Additional Goals: 1-Demonstrate ADL Tasks, 2-Verbalize Understanding, 3- ImproveStrength/Marcelina 1=Demonstrate adherence to instructed precautions during ADL tasks. 2=Patient will verbalize/demonstrate understanding of assistive devices/modifications for ADL. 3=Patient will improve strength/tolerance for activity to enable patient to perform ADL's. OT Education/Plan Problem List/Assessment Assessment: Decreased Activ Tolerance, Decreased UE Strength, Impaired Self- Care Skills pt presents with functional limitations affecting areas of ADLs and functional transfers. pt would benefit from OT services to increase independence with ADLS and functional transfers. Discharge Recommendations Plan/Recommendations: Continue POC Treatment Plan/Plan of Care Patient would benefit from OT for education, treatment and training to promote independence in ADL's, mobility, safety and/or upper extremity function for ADL's. Treatment Duration: Nov 15, 2018 Frequency: 5 times per week Estimated Hrs Per Day: .25 hour per day (-0.50) Rehab Potential: Fair Time/GCodes Start Time: 11:25 Stop Time: 11:51 Total Time Billed (hr/min): 26 Billed Treatment Time 1 visit-ADL 2 (26 min) MAVERICK BRANDON Oct 24, 2018 11:56
[2018-10-24] MEDS ORDERED: FUROSEMIDE 40 MG (LASIX) TAB PO SCH (12:00)
[2018-10-24] MEDS ORDERED: FUROSEMIDE 40 MG/4 ML INJ (LASIX) ONE (13:54)
[2018-10-24] MEDS: FLUCONAZOLE 200 MG/100 ML 100 ML IV SCH (14:10)
[2018-10-24] MEDS ORDERED: FUROSEMIDE 40 MG/4 ML INJ (LASIX) IVP NR (14:15)
[2018-10-24 14:21] LABS: BASOPHILS % (AUTO) 0 % (0-10); EOSINOPHILS # (AUTO) 0.1 10^3/uL (0.0-0.3); EOSINOPHILS % (AUTO) 1 % (0-10); HEMATOCRIT 39 % (35-52); HEMOGLOBIN 12.5 G/DL (11.5-16.0); LYMPHOCYTES % (AUTO) 17 % (12-44); MEAN CORPUSCULAR HEMOGLOBIN 32 PG (25-34); MEAN CORPUSCULAR HGB CONC 33 G/DL (32-36); MEAN CORPUSCULAR VOLUME 100 FL (80-99); MEAN PLATELET VOLUME 11.4 FL (7.4-10.4); MONOCYTES # (AUTO) 0.7 X 10^3 (0.0-1.0); MONOCYTES % (AUTO) 6 % (0-12); NEUTROPHILS # (AUTO) 9.1 X 10^3 (1.8-7.8); NEUTROPHILS % (AUTO) 77 % (42-75); PLATELET COUNT 167 10^3/uL (130-400); RED CELL DISTRIBUTION WIDTH 19.3 % (10.0-14.5); WHITE BLOOD COUNT 11.8 10^3/uL (4.3-11.0)
[2018-10-24 14:43] LABS: ALANINE AMINOTRANSFERASE 115 U/L (0-55); ALBUMIN 2.7 GM/DL (3.2-4.5); ALKALINE PHOSPHATASE 103 U/L (40-136); BILIRUBIN,TOTAL 2.9 MG/DL (0.1-1.0); BUN/CREATININE RATIO 31; CALCIUM 8.1 MG/DL (8.5-10.1); CARBON DIOXIDE 28 MMOL/L (21-32); CHLORIDE 104 MMOL/L (98-107); CREATININE SERUM 0.72 MG/DL (0.60-1.30); GFR ESTIMATED > 60; GLUCOSE 130 MG/DL (70-105); POTASSIUM 3.8 MMOL/L (3.6-5.0); SODIUM 138 MMOL/L (135-145)
[2018-10-24] MEDS ORDERED: POTASSIUM CHLORIDE IV SCH ×12 (17:00)
[2018-10-24] MEDS ORDERED: SODIUM CHLORIDE IV SCH ×12 (17:00)
[2018-10-24] MEDS ORDERED: [UNRECOGNIZED DRUG - OTHER] IV SCH ×12 (17:00)
[2018-10-24 20:25] VITALS: BP 108/63
[2018-10-25] MEDS: inSUlin ASPART (NovoLOG) 1 UNIT/0.01 ML (CHARGE PER UNIT) SC SCH ×2 (00:20→06:22)
[2018-10-25 06:19] LABS: ALANINE AMINOTRANSFERASE 97 U/L (0-55); ALBUMIN 2.5 GM/DL (3.2-4.5); ALKALINE PHOSPHATASE 99 U/L (40-136); BILIRUBIN,TOTAL 2.1 MG/DL (0.1-1.0); BUN/CREATININE RATIO 31; CARBON DIOXIDE 24 MMOL/L (21-32); CHLORIDE 106 MMOL/L (98-107); CREATININE SERUM 0.77 MG/DL (0.60-1.30); GFR ESTIMATED > 60; GLUCOSE 136 MG/DL (70-105); MAGNESIUM 2.1 MG/DL (1.8-2.4); PHOSPHORUS 3.2 MG/DL (2.3-4.7); POTASSIUM 4.6 MMOL/L (3.6-5.0); SODIUM 139 MMOL/L (135-145); TOTAL PROTEIN 6.1 GM/DL (6.4-8.2)
[2018-10-25 08:00] VITALS: BP 119/76
--- NOTE | 2018-10-25 08:28 | Discharge Summary ---
Diagnosis/Chief Complaint Date of Admission Oct 17, 2018 at 13:30 Date of Discharge Discharge Date: Oct 25, 2018 Discharge Diagnosis (1) Enterocutaneous fistula Status: Chronic (2) Malnutrition Status: Acute (3) Morbid obesity Status: Chronic (4) Fluid overload Status: Acute (5) Weakness generalized Status: Acute (6) Renal insufficiency Status: Resolved Discharge Summary Discharge Physical Exam Allergies: Coded Allergies: linezolid (Verified Allergy, Severe, swelling to tongue, skin rash, 09/13/18) Vitals & I&Os Vital Signs Date Time Temp Pulse Resp B/P (MAP) Pulse Ox O2 Delivery O2 Flow Rate FiO2 10/25/18 08:48 Nasal Cannula 2.00 10/25/18 08:00 98.4 92 20 119/76 (90) 96 General Appearance: No Apparent Distress, WD/WN, Chronically ill Neurologic/Psychiatric: Alert, Oriented x3, No Motor/Sensory Deficits, Normal Mood/Affect Hospital Course Was the Problem List Reviewed?: Yes Hospital course: Patient had an uneventful swing bed hospital course she was placed in that status to maintain on TPN and to prepare for surgery scheduled for 10/25/18. Patient had no complications during the hospital course I did initiate a short course of diuresis for volume overload but overall she had no complications during the hospital stay and was ready for surgery to resolve the enterocutaneous fistula. Labs (last 24 hrs) Laboratory Tests 10/24/18 14:15: White Blood Count 11.8H, Red Blood Count 3.86L, Hemoglobin 12.5, Hematocrit 39, Mean Corpuscular Volume 100H, Mean Corpuscular Hemoglobin 32, Mean Corpuscular Hemoglobin Concent 33, Red Cell Distribution Width 19.3H, Platelet Count 167, Mean Platelet Volume 11.4H, Neutrophils (%) (Auto) 77H, Lymphocytes (%) (Auto) 17, Monocytes (%) (Auto) 6, Eosinophils (%) (Auto) 1, Basophils (%) (Auto) 0, Neutrophils # (Auto) 9.1H, Lymphocytes # (Auto) 2.0, Monocytes # (Auto) 0.7, Eosinophils # (Auto) 0.1, Basophils # (Auto) 0.0, Sodium Level 138, Potassium Level 3.8, Chloride Level 104, Carbon Dioxide Level 28, Anion Gap 6, Blood Urea Nitrogen 22H, Creatinine 0.72, Estimat Glomerular Filtration Rate > 60, BUN/Creatinine Ratio 31, Glucose Level 130H, Calcium Level 8.1L, Corrected Calcium 9.1, Total Bilirubin 2.9H, Aspartate Amino Transf (AST/SGOT) 80H, Alanine Aminotransferase (ALT/SGPT) 115H, Alkaline Phosphatase 103, Total Protein 6.0L, Albumin 2.7L 10/24/18 17:38: Glucometer 125H 10/25/18 00:15: Glucometer 144H 10/25/18 05:55: Sodium Level 139, Potassium Level 4.6, Chloride Level 106, Carbon Dioxide Level 24, Anion Gap 9, Blood Urea Nitrogen 24H, Creatinine 0.77, Estimat Glomerular Filtration Rate > 60, BUN/Creatinine Ratio 31, Glucose Level 136H, Calcium Level 8.0L, Corrected Calcium 9.2, Total Bilirubin 2.1H, Aspartate Amino Transf (AST/SGOT) 66H, Alanine Aminotransferase (ALT/SGPT) 97H, Alkaline Phosphatase 99, Total Protein 6.1L, Albumin 2.5L, Phosphorus Level 3.2, Magnesium Level 2.1 Patient resulted labs reviewed. Pending Labs Laboratory Tests 10/25/18 05:55: Sodium Level 139, Potassium Level 4.6, Chloride Level 106, Carbon Dioxide Level 24, Anion Gap 9, Blood Urea Nitrogen 24, Creatinine 0.77, Estimat Glomerular Fi ltration Rate > 60, BUN/Creatinine Ratio 31, Glucose Level 136, Calcium Level 8.0, Corrected Calcium 9.2, Phosphorus Level 3.2, Magnesium Level 2.1, Total Bilirubin 2.1, Aspartate Amino Transf (AST/SGOT) 66, Alanine Aminotransferase (ALT/SGPT) 97, Alkaline Phosphatase 99, Total Protein 6.1, Albumin 2.5 Discussion & Recommendations Discharge Planning: <30 minutes discharge planning Discharge Home Medications: Active Scripts Active Reported Acetaminophen 500 Mg Tablet 500-1,000 Mg PO Q8H PRN Flonase Allergy Relief (Fluticasone Propionate) 9.9 Ml [place].susp 2 [place] NS DAILY PRN Instructions to patient/family Please see electronic discharge instructions given to patient. Clinical Quality Measures DVT/VTE Risk/Contraindication: Risk Factor Score Per Nursin Problem Qualifiers (1) Malnutrition: Malnutrition type: protein-calorie malnutrition Protein-calorie malnutrition severity: severe Qualified Codes: E43 - Unspecified severe protein-calorie malnutrition (2) Fluid overload: Hypervolemia type: unspecified Qualified Codes: E87.70 - Fluid overload, unspecified CY CANDELARIO DO Oct 25, 2018 08:28
[2018-10-25] MEDS: PANTOPRAZOLE 40 MG (PROTONIX) VIAL IV SCH (08:46)
--- NOTE | 2018-10-25 09:50 | NUR ---
Notice of Medicare Non Coverage presented, reviewed, signed and charted. Patient voiced no intention to appeal and deny any needs or further questions at this time.
--- NOTE | 2018-10-25 12:02 | Physical Therapy Progress Note ---
Therapy Progress Note No treatment rendered this date, pending surgery. MAVERICK WRAY PT Oct 25, 2018 12:02
--- NOTE | 2018-10-30 10:09 | Therapy Team Discharge Summary ---
Therapy Discharge Summary Discharge Recommendations Date of Discharge Oct 25, 2018 at 10:58 Physical Therapy This patient was seen on [facility] status post acute stay due to septic shock/UTI/abdominal wound hemorrha. Upon admission to [facility], she was able transfer with mod indep but limited in her gait distance and functional strength. She required assist with mobiltiy due to the status of her wound. Her treatment consisted of functional mobility as able to include transfers and ambulation and also functional strength training. She discharged from [facility] for a surgical procedure and was then transferred to ICU. She was cooperative with PT but unable to reassess her transfers and gait as the last few visits, she only performed LE ther ex. She was cooperative and participatory but goals unmet due to transfer to ICU. DC from [facility] at this time. Occupational Therapy Decreased Activ Tolerance, Decreased UE Strength, Impaired Self-Care Skills PT Alf Goals Machine Operator Hay Stacker Goals PT Machine Operator Hay Stacker Goals Time Frame: Nov 16, 2018 Transfers (B,C,W/C) (FIM): 6 Sit to Lying (QC): 6 Lying-Sitting on Side/Bed(QC): 6 Sit to Stand (QC): 6 Rollin Chair/[id number] Xfer(QC): 6 Does the Patient Walk: Yes Gait (FIM): 6 Gait distance (FIM): 3=150 ft Distance: 200' Walk 50ft with 2 Turns (QC): 6 Walk 150 ft (QC): 6 Gait Level of Assist: 6 Gait Assistive Device: FWW goals unmet due to surgical intervention and transfer to ICU OT Machine Operator Hay Stacker Goals Alf Goals Time Frame: Nov 15, 2018 Eating (FIM): 7 Eating (QC): 6 Groomin Oral Hygiene (QC): 6 Bathing(FIM): 6 Bathing Location: L Arm, R Arm, L Upper Leg, R Upper Leg, L Lower Leg (including foot), R Lower Leg (including foot), Chest, Abdomen, Buttocks, Perineal Area Upper Body Dressing(FIM): 6 Lower Body Dressing(FIM): 6 Toileting(FIM): 6 Toileting Hygiene (QC): 6 Transfers (B,C,W/C) (FIM): 6 Toilet/Commode Transfer(FIM): 6 Toilet/Commode Transfer (QC): 6 Shower Transfer(FIM): 6 Additional Goals: 1-Demonstrate ADL Tasks, 2-Verbalize Understanding, 3- ImproveStrength/Marcelina 1=Demonstrate adherence to instructed precautions during ADL tasks. 2=Patient will verbalize/demonstrate understanding of assistive devices/modifications for ADL. 3=Patient will improve strength/tolerance for activity to enable patient to perform ADL's. MAVERICK WRAY PT Oct 30, 2018 10:09
== END 2018-10-25 10:58 | disposition short-term general hospital (02) | DRG 393 ==
LOC: 4TH 13:30
PROVIDERS: ADMIT Family Medicine; ATTEND Family Medicine
DX: K63.2 Fistula of intestine (principal); E43 Unspecified severe protein-calorie malnutrition; Z68.42 Body mass index [BMI] 45.0-49.9, adult; B37.89 Other sites of candidiasis; E87.70 Fluid overload, unspecified; E66.01 Morbid (severe) obesity due to excess calories; K43.2 Incisional hernia without obstruction or gangrene; R53.1 Weakness; R27.9 Unspecified lack of coordination
CPT/HCPCS: 36415; 80048; 80053; 82962; 83735; 84100; 84134; 84478; 85025; 85027; 87081; 94760

== ENCOUNTER 2018-10-25 10:19 | Inpatient (IN) | payer MEDICARE | END 2018-11-11 07:01 | disposition E | LOC: SURG 10:19 → 4TH 10-29 03:25 → ICU 16:33 | PROC: 0DB80ZX Excision of Small Intestine, Open Approach, Diagnostic (ICD-10-PCS; principal; 2018-10-25 11:28) | PROC: 0DBM0ZX Excision of Descending Colon, Open Approach, Diagnostic (ICD-10-PCS; 2018-10-25 11:28) | PROC: 0DN80ZZ Release Small Intestine, Open Approach (ICD-10-PCS; 2018-10-25 11:28) | PROC: 0DTJ0ZZ Resection of Appendix, Open Approach (ICD-10-PCS; 2018-10-25 11:28) | PROC: 0DP Gastrointestinal System, Removal (ICD-10-PCS; 2018-10-25 11:28) | PROC: 0WQF0ZZ Repair Abdominal Wall, Open Approach (ICD-10-PCS; 2018-10-25 11:28) | DX: K63.2 Fistula of intestine (principal); T85.79XA Infection and inflammatory reaction due to other internal prosthetic devices, implants and grafts, initial encounter; K43.0 Incisional hernia with obstruction, without gangrene; J96.01 Acute respiratory failure with hypoxia; E46 Unspecified protein-calorie malnutrition; Z68.43 Body mass index [BMI] 50.0-59.9, adult; K57.30 Diverticulosis of large intestine without perforation or abscess without bleeding; K66.0 Peritoneal adhesions (postprocedural) (postinfection); I10 Essential (primary) hypertension; B19.20 Unspecified viral hepatitis C without hepatic coma; E11.9 Type 2 diabetes mellitus without complications; E66.01 Morbid (severe) obesity due to excess calories; E03.9 Hypothyroidism, unspecified; M19.91 Primary osteoarthritis, unspecified site; K21.9 Gastro-esophageal reflux disease without esophagitis; I95.9 Hypotension, unspecified; R34 Anuria and oliguria; Z87.891 Personal history of nicotine dependence; Z86.14 Personal history of Methicillin resistant Staphylococcus aureus infection ==